=== PATIENT | male | born 1955 | race African-American/Black ===

== ENCOUNTER 2020-04-24 18:30 | Emergency (ER) | payer MEDICAID, OTHER, SELFPAY ==
[2020-04-24] MEDS ORDERED: ONDANSETRON 4 MG/2 ML VIAL ONE (20:37)
[2020-04-24] MEDS ORDERED: FAMOTIDINE 20 MG/2 ML VIAL IV ONE (20:37)
[2020-04-24] MEDS ORDERED: MORPHINE 4 MG/ML SYR ONE (20:37)
[2020-04-24 20:56] LABS: Basophils % 1.2 % (0-1.3); Hematocrit 40.8 % (39.6-49.0); Lymphocytes % 37.7 % (15.3-44.8); MPV 7.4 fL (7.6-11.3); RBC Red Blood Cell Count 4.63 M/uL (4.33-5.43)
[2020-04-24 21:11] LABS: Albumin 3.8 g/dL (3.4-5.0); Bilirubin Direct 0.1 mg/dL (0-0.2); Bilirubin Total 0.3 mg/dL (0.2-1.0); Potassium 3.9 mmol/L (3.5-5.1); Protein, Total 8.3 g/dL (6.4-8.2)
--- NOTE | 2020-04-24 23:13 | EDPHYS ---
Physician Documentation [facility] Name: Jabier King Age: 64 yrs Sex: Male : 1955 Arrival Date: 04/24/2020 Time: 18:32 Bed 28 Private MD: ED Physician Len Najera HPI: 04/24 20:02 This 64 yrs old Black Male presents to ER via Ambulatory with complaints of Abdominal mh7 Pain. 20:02 The patient presents with abdominal pain in the upper abdomen. Onset: The mh7 symptoms/episode began/occurred yesterday. The symptoms do not radiate. 20:03 Associated signs and symptoms: Pertinent negatives: nausea, vomiting, and diarrhea, mh7 anorexia, blood in stools, chest pain, constipation, diarrhea, dysuria, fever, headache, hematuria, palpitations, shortness of breath, testicular pain, vomiting blood. The symptoms are described as constant, sharp. Modifying factors: The symptoms are alleviated by nothing, the symptoms are aggravated by nothing. Severity of pain: At its worst the pain was moderate last night, in the emergency department the pain is unchanged. Historical: - Allergies: 18:48 No Known Allergies; ca1 - PMHx: 18:48 CVA; Diabetes - NIDDM; Hypertension; ca1 - PSHx: 18:48 Hernia repair; cyst removal; ca1 - Immunization history:: Adult Immunizations up to date. - Social history:: Smoking status: Patient reports the use of cigarette tobacco products, smokes one-half pack cigarettes per day. ROS: 20:03 Constitutional: Negative for fever, chills, and weight loss, Eyes: Negative for injury, mh7 pain, redness, and discharge, ENT: Negative for injury, pain, and discharge, Neck: Negative for injury, pain, and swelling, Cardiovascular: Negative for chest pain, palpitations, and edema, Respiratory: Negative for shortness of breath, cough, wheezing, and pleuritic chest pain, Back: Negative for injury and pain, : Negative for injury, bleeding, discharge, and swelling, MS/Extremity: Negative for injury and deformity, Skin: Negative for injury, rash, and discoloration, Neuro: Negative for headache, weakness, numbness, tingling, and seizure, Psych: Negative for depression, anxiety, suicide ideation, homicidal ideation, and hallucinations, Allergy/Immunology: Negative for hives, rash, and allergies, Endocrine: Negative for neck swelling, polydipsia, polyuria, polyphagia, and marked weight changes, Hematologic/Lymphatic: Negative for swollen nodes, abnormal bleeding, and unusual bruising. Exam: 20:18 Head/Face: Normocephalic, atraumatic. Eyes: Pupils equal round and reactive to light, mh7 extra-ocular motions intact. Lids and lashes normal. Conjunctiva and sclera are non-icteric and not injected. Cornea within normal limits. Periorbital areas with no swelling, redness, or edema. ENT: Nares patent. No nasal discharge, no septal abnormalities noted. Tympanic membranes are normal and external auditory canals are clear. Oropharynx with no redness, swelling, or masses, exudates, or evidence of obstruction, uvula midline. Mucous membranes moist. Neck: Trachea midline, no thyromegaly or masses palpated, and no cervical lymphadenopathy. Supple, full range of motion without nuchal rigidity, or vertebral point tenderness. No Meningismus. Chest/axilla: Normal chest wall appearance and motion. Nontender with no deformity. No lesions are appreciated. Cardiovascular: Regular rate and rhythm with a normal S1 and S2. No gallops, murmurs, or rubs. Normal PMI, no JVD. No pulse deficits. Respiratory: Lungs have equal breath sounds bilaterally, clear to auscultation and percussion. No rales, rhonchi or wheezes noted. No increased work of breathing, no retractions or nasal flaring. 20:18 Back: No spinal tenderness. No costovertebral tenderness. Full range of motion. Skin: Warm, dry with normal turgor. Normal color with no rashes, no lesions, and no evidence of cellulitis. MS/ Extremity: Pulses equal, no cyanosis. Neurovascular intact. Full, normal range of motion. Neuro: Awake and alert, GCS 15, oriented to person, place, time, and situation. Cranial nerves II-XII grossly intact. Motor strength 5/5 in all extremities. Sensory grossly intact. Cerebellar exam normal. Normal gait. Psych: Awake, alert, with orientation to person, place and time. Behavior, mood, and affect are within normal limits. 20:18 Constitutional: The patient appears in no acute distress, alert, awake, uncomfortable. 20:18 Abdomen/GI: Inspection: abdomen appears normal, Bowel sounds: normal, in all quadrants, Palpation: moderate abdominal tenderness, in the epigastric area and left upper quadrant, Rectal exam: the exam is deferred, because of patient request, Indicators: McBurney's point is not tender, Llanos's sign is negative, Rovsing's sign is negative, Obturator sign is negative, Psoas sign is negative, Liver: no appreciated palpable abnormalities, Hernia: not appreciated. Vital Signs: 18:45 BP 172 / 111; Pulse 93; Resp 16 S; Temp 97.4(TE); Pulse Ox 100% on R/A; Weight 84.82 kg ca1 (R); Height 5 ft. 5 in. (165.10 cm) (R); Pain 8/10; 19:33 BP 173 / 106; Pulse 84; Resp 20; Pulse Ox 100% on R/A; aj1 20:30 BP 159 / 101; Pulse 81; Resp 18; Pulse Ox 98% on R/A; aj1 21:57 BP 168 / 101; Pulse 67; Resp 18; Pulse Ox 100% on R/A; aj1 23:16 BP 160 / 97; Pulse 81; Resp 18; Pulse Ox 100% on R/A; aj1 18:45 Body Mass Index 31.12 (84.82 kg, 165.10 cm) ca1 MDM: 19:38 Patient medically screened. mh7 23:08 Differential diagnosis: bowel obstruction, cholecystitis, Cholelithiasis, mh7 diverticulitis, gastritis, gastroesophageal reflux disease, non-specific abd pain, pancreatitis, Peptic Ulcer Disease. Data reviewed: vital signs, nurses notes, old medical records, lab test result(s), CBC, electrolytes, urinalysis, EKG, radiologic studies, CT scan. Data interpreted: Pulse oximetry: on room air is 100 %. Interpretation: normal. Counseling: I had a detailed discussion with the patient and/or guardian regarding: the historical points, exam findings, and any diagnostic results supporting the discharge/admit diagnosis, the presence of at least one elevated blood pressure reading (>120/80) during this emergency department visit, lab results, radiology results. Response to treatment: the patient's symptoms have resolved after treatment, the patient's blood pressure is in an acceptable range, mental status has returned to baseline, the patient no longer shows bradycardia, the patient is not short of breath, the patient is not tachycardic, the patient's pain is gone, the patient's temperature has normalized, the patient is now symptom free, patient is well hydrated. Refusal of service: The patient/guardian displays adequate decision making capability and despite a detailed discussion of alternatives, benefits, risks, and consequences refuses: Admission to the hospital for further work-up and treatment. 04/24 19:40 Order name: Basic Metabolic Panel; Complete Time: 22:06 [facility] 04/24 19:40 Order name: CBC with Diff; Complete Time: 22: [facility] 04/24 19:40 Order name: Hepatic Function; Complete Time: 22: [facility] 04/24 19:40 Order name: Lipase; Complete Time: 22: [facility] 04/24 20:35 Order name: CT Abd/Pelvis - IV Contrast Only [facility] 04/24 19:40 Order name: IV Saline Lock; Complete Time: 20:48 [facility] 04/24 19:40 Order name: Labs collected and sent; Complete Time: 20:48 [facility] 04/24 19:40 Order name: Urine Dipstick-Ancillary (obtain specimen); Complete Time: 21:13 [facility] 04/24 19:40 Order name: EKG - Nurse/Tech; Complete Time: 20:31 7 Administered Medications: 20:48 Drug: Pepcid 20 mg Route: IVP; Site: left antecubital; aj1 21:45 Follow up: Response: No adverse reaction aj1 20:49 Drug: morphine 4 mg Route: IVP; Site: left antecubital; aj1 21:45 Follow up: Response: No adverse reaction; Pain is decreased aj1 20:49 Drug: Zofran (Ondansetron) 4 mg Route: IVP; Site: left antecubital; aj1 21:45 Follow up: Response: No adverse reaction aj1 Disposition: 04/24/20 23:13 Discharged to Home. Impression: Acute Pancreatitis. - Condition is Stable. - Discharge Instructions: Acute Pancreatitis, [id number]. - Prescriptions for Zofran ODT 4 mg Oral tablet,disintegrating - place 1 tablet by TRANSLINGUAL route every 8 hours As needed; 6 tablet. Tylenol- Codeine #3 300-30 mg Oral Tablet - take 2 tablets by ORAL route every 6 hours As needed; 20 tablet. - Medication Reconciliation Form, Thank You Letter, Antibiotic Education, Prescription Opioid Use form. - Follow up: Private Physician; When: Tomorrow; Reason: Worsening of condition, Recheck today's complaints, Continuance of care, Re-evaluation by your physician. Follow up: Yasemin Davila MD; When: 1 - 2 days; Reason: Worsening of condition, Recheck today's complaints. Follow up: Esteban Estrada MD; When: Tomorrow; Reason: Worsening of condition, Recheck today's complaints. - Problem is an acute exacerbation. - Symptoms have improved. Signatures: Dispatcher [employer] EDMS Romana Lara RN RN aj1 Kristal Cabello RN RN ca1 Len Najera MD MD mh7 Corrections: (The following items were deleted from the chart) 23:42 23:13 04/24/2020 23:13 Discharged to Home. Impression: Acute Pancreatitis. Condition is aj1 Stable. Forms are Medication Reconciliation Form, Thank You Letter, Antibiotic Education, Prescription Opioid Use. Follow up: Private Physician; When: Tomorrow; Reason: Worsening of condition, Recheck today's complaints, Continuance of care, Re-evaluation by your physician. Follow up: Yasemin Davila; When: 1 - 2 days; Reason: Worsening of condition, Recheck today's complaints. Follow up: Esteban Estrada; When: Tomorrow; Reason: Worsening of condition, Recheck today's complaints. Problem is an acute exacerbation. Symptoms have improved. mh7
--- NOTE | 2020-04-24 23:13 | ER ---
Nurse's Notes [facility] Name: Jabier King Age: 64 yrs Sex: Male : 1955 Arrival Date: 04/24/2020 Time: 18:32 Bed 28 Private MD: Diagnosis: Acute Pancreatitis Presentation: 04/24 18:45 Chief complaint: Patient states: Mid abdominal pain started yesterday and has gotten ca1 worse. Denies N/V/D/urinary symptoms/constipation. Coronavirus screen: Client denies travel out of the [place] in the last 14 days. At this time, the client does not indicate any symptoms associated with coronavirus-19. Ebola Screen: Patient negative for fever greater than or equal to 101.5 degrees Fahrenheit, and additional compatible Ebola Virus Disease symptoms Patient denies exposure to infectious person. Patient denies travel to an Ebola-affected area in the 21 days before illness onset. No symptoms or risks identified at this time. Initial Sepsis Screen: Does the patient meet any 2 criteria? No. Patient's initial sepsis screen is negative. Does the patient have a suspected source of infection? No. Patient's initial sepsis screen is negative. Risk Assessment: Do you want to hurt yourself or someone else? Patient reports no desire to harm self or others. Onset of symptoms was April 24, 2020. 18:45 Method Of Arrival: Ambulatory ca1 18:45 Acuity: TARA 3 ca1 Historical: - Allergies: 18:48 No Known Allergies; ca1 - PMHx: 18:48 CVA; Diabetes - NIDDM; Hypertension; ca1 - PSHx: 18:48 Hernia repair; cyst removal; ca1 - Immunization history:: Adult Immunizations up to date. - Social history:: Smoking status: Patient reports the use of cigarette tobacco products, smokes one-half pack cigarettes per day. Screenin:30 Abuse screen: Denies threats or abuse. Denies injuries from another. Nutritional aj1 screening: No deficits noted. Tuberculosis screening: No symptoms or risk factors identified. 23:41 Fall Risk None identified. aj1 Assessment: 19:30 General: Appears in no apparent distress. uncomfortable, Behavior is calm, cooperative, aj1 appropriate for age. Pain: Complains of pain in epigastric area, right upper quadrant and left upper quadrant Pain does not radiate. Pain currently is 8 out of 10 on a pain scale. Quality of pain is described as aching, Pain began 2-3 days ago. Is continuous, Alleviated by nothing. Aggravated by nothing. Neuro: Level of Consciousness is awake, alert, obeys commands, Oriented to person, place, time, situation. Cardiovascular: Patient's skin is warm and dry. Respiratory: Airway is patent Respiratory effort is even, unlabored, Respiratory pattern is regular, symmetrical. GI: Abdomen is round non-distended, Bowel sounds present X 4 quads. Abd is soft X 4 quads Abdomen is tender to palpation in epigastric area, right upper quadrant and left upper quadrant Patient currently denies diarrhea, nausea, vomiting. : No signs and/or symptoms were reported regarding the genitourinary system. EENT: No signs and/or symptoms were reported regarding the EENT system. Derm: No signs and/or symptoms reported regarding the dermatologic system. Skin is pink, warm \T\ dry. normal. Musculoskeletal: No signs and/or symptoms reported regarding the musculoskeletal system. Circulation, motion, and sensation intact. 20:30 Reassessment: Patient appears in no apparent distress at this time. No changes from [facility] previously documented assessment. Patient and/or family updated on plan of care and expected duration. Pain level reassessed. Patient is alert, oriented x 3, equal unlabored respirations, skin warm/dry/pink. 21:15 Reassessment: Patient transported to CT via wheelchair. aj1 21:27 Reassessment: Patient returned to ER bed 28. aj1 21:57 Reassessment: Patient appears in no apparent distress at this time. Patient and/or [facility] family updated on plan of care and expected duration. Pain level reassessed. Patient is alert, oriented x 3, equal unlabored respirations, skin warm/dry/pink. Patient states symptoms have improved. 22:05 Reassessment: Attempted to call report to 4th floor, receiving nurse is unavailable at [facility] this time and will call back. 23:15 Reassessment: Patient and/or family updated on plan of care and expected duration. Pain [facility] level reassessed. General: Appears in no apparent distress. comfortable, Behavior is calm, cooperative, appropriate for age. Neuro: Level of Consciousness is awake, alert, obeys commands, Oriented to person, place, time, situation. Cardiovascular: Patient's skin is warm and dry. Respiratory: Airway is patent Respiratory effort is even, unlabored, Respiratory pattern is regular, symmetrical. Derm: No signs and/or symptoms reported regarding the dermatologic system. Skin is pink, warm \T\ dry. normal. Musculoskeletal: No signs and/or symptoms reported regarding the musculoskeletal system. Circulation, motion, and sensation intact. Vital Signs: 18:45 BP 172 / 111; Pulse 93; Resp 16 S; Temp 97.4(TE); Pulse Ox 100% on R/A; Weight 84.82 kg ca1 (R); Height 5 ft. 5 in. (165.10 cm) (R); Pain 8/10; 19:33 BP 173 / 106; Pulse 84; Resp 20; Pulse Ox 100% on R/A; aj1 20:30 BP 159 / 101; Pulse 81; Resp 18; Pulse Ox 98% on R/A; aj1 21:57 BP 168 / 101; Pulse 67; Resp 18; Pulse Ox 100% on R/A; aj1 23:16 BP 160 / 97; Pulse 81; Resp 18; Pulse Ox 100% on R/A; aj1 18:45 Body Mass Index 31.12 (84.82 kg, 165.10 cm) ca1 ED Course: 18:32 Patient arrived in ED. as 18:47 Triage completed. ca1 18:48 Arm band placed on right wrist. ca1 19:00 Report received from CIARA Ames. aj1 19:01 Len Najera MD is Attending Physician. 7 19:22 Romana Lara RN is Primary Nurse. aj1 19:30 Patient has correct armband on for positive identification. Bed in low position. Call aj1 light in reach. Pulse ox on. NIBP on. Door closed. Noise minimized. Warm blanket given. 19:30 No provider procedures requiring assistance completed. aj1 20:41 Inserted saline lock: 20 gauge in left antecubital area, using aseptic technique. Blood aj1 collected. 21:32 CT Abd/Pelvis - IV Contrast Only In Process Unspecified. EDMS 23:11 Yasemin Davila MD is Referral Physician. 7 23:12 Esteban Estrada MD is Referral Physician. 7 23:40 IV discontinued, intact, bleeding controlled, No redness/swelling at site. Pressure aj1 dressing applied. Administered Medications: 20:48 Drug: Pepcid 20 mg Route: IVP; Site: left antecubital; aj1 21:45 Follow up: Response: No adverse reaction aj1 20:49 Drug: morphine 4 mg Route: IVP; Site: left antecubital; aj1 21:45 Follow up: Response: No adverse reaction; Pain is decreased aj1 20:49 Drug: Zofran (Ondansetron) 4 mg Route: IVP; Site: left antecubital; aj1 21:45 Follow up: Response: No adverse reaction aj1 Outcome: 23:13 Discharge ordered by . Velia 23:41 Discharged to home ambulatory. aj1 23:41 Condition: good 23:41 Discharge instructions given to patient, Instructed on discharge instructions, follow up and referral plans. no drinking with medication, no driving heavy equipment, medication usage, Demonstrated understanding of instructions, follow-up care, medications, Prescriptions given X 2. 23:42 Patient left the ED. aj1 Signatures: Dispatcher [employer] EDRomana Blake RN RN aj1 Martinez, Amelia as Acob, Cheryl, RN RN ca1 Len Najera MD MD [facility]
[2020-04-25 01:46] VITALS: TEMP 97.4
[2020-04-25 01:50] VITALS: O2SAT 100
[2020-04-25 01:51] VITALS: BP 160/97
--- NOTE | 2020-04-25 10:43 | RAD REPORT ---
EXAM DESCRIPTION: CT ABDOMEN PELVIS WITH IV CONTRAST CLINICAL HISTORY: Mid abdominal pain for one day. COMPARISON: None. TECHNIQUE: CT scan of the abdomen and pelvis was performed with IV contrast. This exam was performed according to our departmental dose-optimization program, which includes automated exposure control, adjustment of the mA and/or kV according to patient size and/or use of iterative reconstruction techn ique. FINDINGS: Mild scarring at the right lung base. No pleural or pericardial effusions are seen. There is no hiatal hernia. There is suggestion of possible mild inflammatory stranding surrounding the pancreas. The liver, sple en, gallbladder, adrenal glands, and kidneys are unremarkable. No hydronephrosis or urinary stones ar e seen. The pelvic organs are also unremarkable. The stomach and duodenum are unremarkable. No small bowel obstruction. The appendix is normal. No mariama dence of acute diverticulitis. No adenopathy, free fluid, or free air is identified. The aorta is normal caliber and contains atherosclerotic calcifications. Focal degenerative disc dise ase at L4-L5 with endplate erosive changes. Small fat-containing umbilical hernia but without inflamm atory changes. IMPRESSION: Query mild inflammatory stranding surrounding the pancreas. Please correlate with lipase levels for pancreatitis. Electronically signed by: Dayron Bird MD 04/24/2020 9:56 PM CDT Due to temporary technical issues with the PACS/Fluency reporting system, reports are being signed by the in house radiologist without review as a courtesy to ensure prompt reporting. The interpreting r adiologist is fully responsible for the content of the report.
--- NOTE | 2020-04-25 11:21 | EKG ---
Test Date: 2020-04-24 Test Time: 20:20:25 Vp Foundation: REGI MEASUREMENT RESULTS: Intervals: Rate: 82 ME: 164 QRSD: 66 QT: 376 QTc: 439 [place]: P: 55 ME: 164 QRS: 45 T: 65 INTERPRETIVE STATEMENTS: Normal sinus rhythm Septal infarct, age undetermined Abnormal ECG Compared to ECG 03/10/2015 19:53:17 Myocardial infarct finding now present Electronically Signed On 04-25-20 11:20:14 CDT by Ac Solis
== END 2020-04-24 23:42 | disposition home or self-care (01) ==
LOC: ER 18:30
DX: K85.90 Acute pancreatitis without necrosis or infection, unspecified (principal); I10 Essential (primary) hypertension; F17.210 Nicotine dependence, cigarettes, uncomplicated; Z86.73 Personal history of transient ischemic attack (TIA), and cerebral infarction without residual deficits
CPT/HCPCS: 36415; 74177; 80048; 80076; 83690; 85025; 93005; 96374; 96375; 99284; J2405; Q9967

== ENCOUNTER 2020-05-06 20:28 | Emergency (ER) | payer SELFPAY ==
[2020-05-06 21:28] LABS: Absolute Lymphocytes (CBC) 4.1 K/uL (0.7-4.9); Basophils % 0.8 % (0-1.3); Hematocrit 42.2 % (39.6-49.0); Lymphocytes % 34.4 % (15.3-44.8); RBC Red Blood Cell Count 4.75 M/uL (4.33-5.43)
[2020-05-06] MEDS ORDERED: NA CHLORIDE 0.9% 1,000 ML ONE (21:39)
[2020-05-06] MEDS ORDERED: ONDANSETRON 4 MG/2 ML VIAL ONE (21:39)
[2020-05-06] MEDS ORDERED: MORPHINE 4 MG/ML SYR ONE (21:39)
[2020-05-06 21:40] LABS: ALT/SGPT 22 U/L (12-78); AST/SGOT 13 U/L (15-37); Albumin 3.9 g/dL (3.4-5.0); Alkaline Phosphatase 105 U/L (45-117); BUN Blood Urea Nitrogen 19 mg/dL (7-18); Bicarbonate 28 mmol/L (21-32); Bilirubin Direct < 0.1 mg/dL (0-0.2); Bilirubin Total 0.3 mg/dL (0.2-1.0); Glucose Level 110 mg/dL (74-106); Lipase 511 U/L (73-393); Potassium 4.9 mmol/L (3.5-5.1); Protein, Total 8.9 g/dL (6.4-8.2); Sodium Level 140 mmol/L (136-145)
[2020-05-06] MEDS ORDERED: CEFTRIAXONE/SWI 1gm 1 GM/10 ML SYR ONE (23:30)
--- NOTE | 2020-05-06 23:41 | ER ---
Nurse's Notes [facility] Name: Jabier King Age: 64 yrs Sex: Male : 1955 Arrival Date: 05/06/2020 Time: 20:30 Bed 7 Private MD: Diagnosis: Acute pancreatitis Presentation: 05/06 20:51 Chief complaint: Patient states: Upper abdfominal pain for 3 days. 1 episode of N/V. No ll1 fever. Coronavirus screen: Client denies travel out of the [place] in the last 14 days. fatigue, shortness of breath, loss of taste or smell, Client presents with at least one sign or symptom that may indicate coronavirus-19. Standard/surgical mask placed on the client. Ebola Screen: Patient denies travel to an Ebola-affected area in the 21 days before illness onset. Initial Sepsis Screen: Does the patient meet any 2 criteria? No. Patient's initial sepsis screen is negative. Risk Assessment: Do you want to hurt yourself or someone else? Patient reports no desire to harm self or others. Onset of symptoms was May 03, 2020. 20:51 Method Of Arrival: Ambulatory ll1 20:51 Acuity: TARA 2 ll1 21:45 Initial Sepsis Screen: Does the patient have a suspected source of infection? No. rv Patient's initial sepsis screen is negative. Historical: - Allergies: 20:53 Bactrim; ll1 - PMHx: 20:53 CVA; Diabetes - NIDDM; Hypertension; ll1 - PSHx: 20:53 Hernia repair; ll1 20:53 cyst removal; ll1 - Immunization history:: Flu vaccine is not up to date. - Social history:: Smoking status: Patient reports the use of cigarette tobacco products, smokes one-half pack cigarettes per day. Screenin:45 Abuse screen: Denies threats or abuse. Denies injuries from another. Nutritional rv screening: No deficits noted. Tuberculosis screening: No symptoms or risk factors identified. Fall Risk None identified. Assessment: 21:44 General: Appears comfortable, Behavior is calm, cooperative. Pain: Complains of pain in rv right upper quadrant and left upper quadrant. Neuro: Level of Consciousness is awake, alert, obeys commands, Oriented to person, place, time, situation. Cardiovascular: Patient's skin is warm and dry. Respiratory: Airway is patent. GI: Bowel sounds present X 4 quads. Abd is soft and non tender X 4 quads. Derm: Skin is intact. 05/07 00:05 Reassessment: Patient is alert, oriented x 3, equal unlabored respirations, skin bb warm/dry/pink. pt discussed disposition with Stef GEORGES decided pt would be discharged pt states he is feeling better and verbalized understanding of agreeing to plan of care discharge instructions given pt ambulated with steady gait to exit. Vital Signs: 05/06 20:51 BP 204 / 109; Pulse 80; Resp 18; Temp 97.6; Pulse Ox 100% ; Pain 9/10; ll1 21:11 BP 200 / 105; Pulse 75; rv 22:00 BP 162 / 119; Pulse 75; Resp 16; Pulse Ox 99% ; rv 23:00 BP 190 / 106; Pulse 77; Resp 15; Pulse Ox 96% on R/A; rv 23:30 BP 199 / 103; Pulse 88; Resp 17; Pulse Ox 97% on R/A; rv 05/07 00:06 BP 179 / 103; Pulse 91; Resp 17 S; Temp 98.2(O); Pulse Ox 94% on R/A; Pain 0/10; bb ED Course: 05/06 20:30 Patient arrived in ED. bp1 20:52 Triage completed. ll1 20:53 Arm band placed on. ll1 21:01 Stef Allred PA is PHCP. cp 21:01 Stef Bagley MD is Attending Physician. cp 21:10 Inserted saline lock: 20 gauge in left antecubital area, using aseptic technique. Blood rv collected. 21:25 Charly Ireland, CIARA is Primary Nurse. rv 21:45 Patient has correct armband on for positive identification. radiation monitor on. Pulse rv ox on. NIBP on. 22:03 CT Abd/Pelvis - IV Contrast Only In Process Unspecified. EDMS 23:40 Farhad Cortes MD is Referral Physician. cp 05/07 00:07 No provider procedures requiring assistance completed. IV discontinued, intact, bb bleeding controlled, No redness/swelling at site. Pressure dressing applied. Administered Medications: 05/06 21:37 Drug: NS 0.9% 1000 ml Route: IV; Rate: 1000 ml/hr; Site: left antecubital; rv 21:38 Drug: morphine 4 mg Route: IVP; Site: left antecubital; rv 22:32 Follow up: Response: No adverse reaction; Marked relief of symptoms; Pain is decreased; rv RASS: Alert and Calm (0) 21:38 Drug: Zofran (Ondansetron) 4 mg Route: IVP; Site: left antecubital; rv 22:30 Follow up: Response: No adverse reaction rv 23:20 Drug: Rocephin 1 grams Route: IV; Rate: calculated rate; Site: left antecubital; rv 23:49 CANCELLED (Physician Discretion): NS 0.9% 1000 ml IV at 125 ml/hr Per protocol; 1000 mL bb bolus 05/07 00:00 Drug: ProTONIX 40 mg Route: IVP; Site: left antecubital; bb 00:05 Follow up: Response: No adverse reaction bb Outcome: 05/06 23:41 Discharge ordered by MD. roche 05/07 00:07 Discharged to home ambulatory. bb Condition: stable Discharge instructions given to patient, Instructed on discharge instructions, follow up and referral plans. medication usage, Demonstrated understanding of instructions, follow-up care, medications, Prescriptions given X 3. 00:07 Patient left the ED. bb Signatures: Dispatcher [employer] EDMS Misti Apple RN RN bb Stef Allred PA PA cp Vicente, Ronaldo, RN RN rv Jocy Levy RN RN ll1 Emily Nieto
--- NOTE | 2020-05-06 23:41 | EDPHYS ---
Physician Documentation [facility] Name: Jabier King Age: 64 yrs Sex: Male : 1955 Arrival Date: 05/06/2020 Time: 20:30 Bed 7 Private MD: ED Physician Stef Bagley HPI: 05/06 21:20 This 64 yrs old Black Male presents to ER via Ambulatory with complaints of cp PANCREATITIS, Abdominal Pain. 21:20 The patient presents with abdominal pain in the upper abdomen. cp 21:20 Onset: The symptoms/episode began/occurred 3 day(s) ago. cp 21:20 The symptoms do not radiate. Associated signs and symptoms: Pertinent positives: cp nausea, 1 episode of vomiting, Pertinent negatives: blood in stools, chest pain, constipation, diarrhea, fever. 21:20 The patient has experienced similar episodes in the past, today's symptoms are similar, cp to when the patient was apparently diagnosed with pancreatitis. 21:20 Associated signs and symptoms: Pertinent negatives: active vomiting. cp Historical: - Allergies: 20:53 Bactrim; ll1 - PMHx: 20:53 CVA; Diabetes - NIDDM; Hypertension; ll1 - PSHx: 20:53 Hernia repair; ll1 20:53 cyst removal; ll1 - Immunization history:: Flu vaccine is not up to date. - Social history:: Smoking status: Patient reports the use of cigarette tobacco products, smokes one-half pack cigarettes per day. ROS: 21:25 Constitutional: Negative for body aches, chills, fever, poor PO intake. cp 21:25 Eyes: Negative for injury, pain, redness, and discharge. cp 21:25 ENT: Negative for ear pain, sore throat, difficulty swallowing, difficulty handling secretions. 21:25 Cardiovascular: Negative for chest pain, palpitations. 21:25 Respiratory: Negative for cough, shortness of breath, wheezing. 21:25 Abdomen/GI: Positive for abdominal pain, Negative for vomiting, diarrhea, constipation, black/tarry stool, rectal bleeding. 21:25 Neuro: Negative for altered mental status, weakness. 21:25 All other systems are negative. Exam: 21:32 Head/Face: Normocephalic, atraumatic. cp 21:32 Constitutional: The patient appears in no acute distress, alert, awake, non-diaphoretic, non-toxic, well developed, well nourished. 21:32 Eyes: Periorbital structures: appear normal, Conjunctiva: normal, no exudate, no injection, Sclera: no appreciated abnormality, Lids and lashes: appear normal, bilaterally. 21:32 ENT: External ear(s): are unremarkable, Nose: is normal, Posterior pharynx: Airway: no evidence of obstruction, patent. 21:32 Chest/axilla: Inspection: normal, Palpation: is normal, no crepitus, no tenderness. 21:32 Cardiovascular: Rate: normal, Rhythm: regular, Edema: is not appreciated, JVD: is not appreciated. 21:32 Respiratory: the patient does not display signs of respiratory distress, Respirations: normal, no use of accessory muscles, no retractions, labored breathing, is not present, Breath sounds: are clear throughout, no decreased breath sounds. 21:32 Abdomen/GI: Inspection: abdomen appears normal, Bowel sounds: active, all quadrants, Palpation: soft, in all quadrants, severe abdominal tenderness, in the right upper quadrant and left upper quadrant, rebound tenderness, is not appreciated, voluntary guarding, is elicited in the right upper quadrant and left upper quadrant. 21:32 Neuro: Orientation: to person, place \T\ time. Mentation: is normal. Vital Signs: 20:51 BP 204 / 109; Pulse 80; Resp 18; Temp 97.6; Pulse Ox 100% ; Pain 9/10; ll1 21:11 BP 200 / 105; Pulse 75; rv 22:00 BP 162 / 119; Pulse 75; Resp 16; Pulse Ox 99% ; rv 23:00 BP 190 / 106; Pulse 77; Resp 15; Pulse Ox 96% on R/A; rv 23:30 BP 199 / 103; Pulse 88; Resp 17; Pulse Ox 97% on R/A; rv 05/07 00:06 BP 179 / 103; Pulse 91; Resp 17 S; Temp 98.2(O); Pulse Ox 94% on R/A; Pain 0/10; bb MDM: 05/06 21:03 Patient medically screened. cp 23:39 Data reviewed: vital signs, nurses notes, lab test result(s), radiologic studies, CT cp scan. ED course: Patient reports pain markedly improved and would like to be discharged to home. 05/06 21:10 Order name: Basic Metabolic Panel; Complete Time: 22:38 05/06 22:38 Interpretation: Normal except: GLUC 110; BUN 19; GFR 82. 05/06 21:10 Order name: CBC with Diff; Complete Time: 22:38 05/06 22:38 Interpretation: Normal except: WBC 12.0; PLT 252; RDW 15.3; MPV 7.0. 05/06 21:10 Order name: Hepatic Function; Complete Time: 22:38 05/06 23:34 Interpretation: Normal except: AST 13; TP 8.9; GLOB 5.0; A/G 0.8. 05/06 21:10 Order name: Lipase; Complete Time: 22:38 05/06 22:38 Interpretation: Abnormal: LIP 511. 05/06 21:20 Order name: Urine Microscopic Only 05/06 21:30 Order name: Lactate; Complete Time: 23:33 05/06 21:30 Order name: CT Abd/Pelvis - IV Contrast Only 05/06 23:09 Order name: Urine Dipstick--Ancillary (enter results) [facility] 05/06 23:55 Order name: Urine Culture ED[facility] 05/06 21:10 Order name: IV Saline Lock; Complete Time: 21:10 05/06 21:10 Order name: Labs collected and sent; Complete Time: 21:10 05/06 21:20 Order name: Bladder Scanner: pre and post void ; Complete Time: 21:37 cp Administered Medications: 21:37 Drug: NS 0.9% 1000 ml Route: IV; Rate: 1000 ml/hr; Site: left antecubital; rv 21:38 Drug: morphine 4 mg Route: IVP; Site: left antecubital; rv 22:32 Follow up: Response: No adverse reaction; Marked relief of symptoms; Pain is decreased; rv RASS: Alert and Calm (0) 21:38 Drug: Zofran (Ondansetron) 4 mg Route: IVP; Site: left antecubital; rv 22:30 Follow up: Response: No adverse reaction rv 23:20 Drug: Rocephin 1 grams Route: IV; Rate: calculated rate; Site: left antecubital; rv 23:49 CANCELLED (Physician Discretion): NS 0.9% 1000 ml IV at 125 ml/hr Per protocol; 1000 mL bb bolus 05/07 00:00 Drug: ProTONIX 40 mg Route: IVP; Site: left antecubital; bb 00:05 Follow up: Response: No adverse reaction bb Disposition: 11:05 Co-signature as Attending Physician, Stef Bagley MD I agree with the assessment and brianna plan of care. Disposition: 05/06/20 23:41 Discharged to Home. Impression: Acute pancreatitis. - Condition is Stable. - Discharge Instructions: Acute Pancreatitis, Urinary Tract Infection, Adult. - Prescriptions for Zofran 4 mg Oral Tablet - take 1 tablet by ORAL route every 12 hours As needed; 20 tablet. Cipro 500 mg Oral Tablet - take 1 tablet by ORAL route every 12 hours for 7 days; 14 tablet. Tramadol 50 mg Oral Tablet - take 1 tablet by ORAL route every 8 hours as needed; 12 tablet. - Medication Reconciliation Form, Thank You Letter, Antibiotic Education, Prescription Opioid Use form. - Follow up: Farhad Cortes MD; When: 1 - 2 days; Reason: Recheck today's complaints. - Problem is an acute exacerbation. - Symptoms have improved. Signatures: Dispatcher [employer] EDNH Stef Bagley MD MD cha Ballard, Brenda RN RN Stfe Aguilar PA PA cp Charly Ireland RN RN Jocy Austin RN RN ll1 Corrections: (The following items were deleted from the chart) 05/06 23:49 23:35 NS 0.9% 1000 ml IV at 125 ml/hr Per protocol; 1000 mL bolus ordered. cp bb 05/07 00:07 05/06 23:41 05/06/2020 23:41 Discharged to Home. Impression: Acute pancreatitis. bb Condition is Stable. Forms are Medication Reconciliation Form, Thank You Letter, Antibiotic Education, Prescription Opioid Use. Follow up: Farhad Cortes; When: 1 - 2 days; Reason: Recheck today's complaints. Problem is an acute exacerbation. Symptoms have improved. cp
[2020-05-06 23:46] LABS: Urine Blood 1+ (NEG); Urine Glucose TRACE (NEG); Urine Protein 2+ (NEG)
[2020-05-06 23:54] LABS: Urine Bacteria >50 /HPF (NONE SEEN); Urine Culture Reflex Order REFLEXED; Urine RBC <5 /HPF (NONE SEEN)
[2020-05-07] MEDS ORDERED: PANTOPRAZOLE 40 MG INJ ONE ×2 (00:08)
[2020-05-07 00:22] VITALS: BP 179/103; TEMP 98.2; O2SAT 94
--- NOTE | 2020-05-07 10:04 | RAD REPORT ---
EXAM DESCRIPTION: CT - Abdomen Pelvis W Contrast - 05/07/2020 7:02 am CLINICAL HISTORY: ABD PAIN TECHNIQUE: Contiguous axial images obtained through the abdomen and pelvis following the uneventful administration of IV contrast. Coronal and sagittal reformatted images were provided. This exam was performed according to our departmental dose-optimization program, which includes autom ated exposure control, adjustment of the mA and/or kV according to patient size and/or use of iterati ve reconstruction technique. COMPARISON: 04/24/2020 FINDINGS: Lung bases: Clear Liver: Diffuse surface contour nodularity suggestive of cirrhosis. Gallbladder and biliary system: Unremarkable Pancreas: Subtle infiltrative changes surrounding the pancreas, decreased from the prior. Spleen: Unremarkable Adrenals: Unremarkable Kidneys: Normal renal cortical enhancement. No calculi. No hydronephrosis. Bowel: Moderate stool within the proximal to mid large bowel. No obstruction. No appreciable mucosal thickening. Appendix: Normal caliber appendix. No findings to suggest acute appendicitis. Urinary bladder: Unremarkable Reproductive: The prostate is mildly enlarged. Lymph nodes: No pathologically enlarged lymph nodes. Peritoneum: No focal fluid collection. No free air. Vessels: Moderate atherosclerotic disease. No abdominal aortic aneurysm. The main portal, splenic and superior mesenteric veins are patent. Abdominal wall: Small fat-containing left periumbilical and left inguinal hernias. Bones: Unremarkable IMPRESSION: 1. Subtle residual infiltrative changes surrounding the pancreas which may be related to acute pancreatitis. 2. Other findings as above. Electronically signed by: Kenton Cevallos MD 05/06/2020 10:21 PM CDT Due to temporary technical issues with the PACS/Fluency reporting system, reports are being signed by the in house radiologist without review as a courtesy to ensure prompt reporting. The interpreting r adiologist is fully responsible for the content of the report.
== END 2020-05-07 00:07 | disposition home or self-care (01) ==
LOC: ER 20:28
DX: K85.90 Acute pancreatitis without necrosis or infection, unspecified (principal); I10 Essential (primary) hypertension; F17.210 Nicotine dependence, cigarettes, uncomplicated; Z88.1 Allergy status to other antibiotic agents; Z86.73 Personal history of transient ischemic attack (TIA), and cerebral infarction without residual deficits
CPT/HCPCS: 36415; 74177; 80048; 80076; 81003; 81015; 83605; 83690; 85025; 87086; 87088; J0696; J2405; J7030; Q9967

== ENCOUNTER 2020-06-03 10:11 | Emergency (ER) | payer OTHER ==
[2020-06-03 10:59] LABS: Urine Blood NEGATIVE (NEG); Urine Glucose 2+ (NEG); Urine Protein 1+ (NEG)
[2020-06-03] MEDS ORDERED: carvediloL 6.25 MG TAB ONE (11:16)
[2020-06-03] MEDS ORDERED: hydroCHLOROthiazide 25 MG TAB ONE (11:16)
[2020-06-03] MEDS ORDERED: lisinopriL 20 MG TAB ONE (11:16)
[2020-06-03] MEDS ORDERED: AMLODIPINE 10 MG TAB ONE (11:16)
[2020-06-03] MEDS ORDERED: ONDANSETRON 4 MG/2 ML VIAL ONE (11:47)
[2020-06-03] MEDS ORDERED: MORPHINE 4 MG/ML SYR ONE (11:47)
[2020-06-03 12:00] LABS: Absolute Lymphocytes (CBC) 2.3 K/uL (0.7-4.9); Basophils % 0.7 % (0-1.3); Hematocrit 43.1 % (39.6-49.0); Lymphocytes % 31.2 % (15.3-44.8); MPV 8.2 fL (7.6-11.3); RBC Red Blood Cell Count 4.76 M/uL (4.33-5.43)
--- NOTE | 2020-06-03 12:13 | RAD REPORT ---
EXAM DESCRIPTION: RAD - Chest Single View - 06/03/2020 11:53 am CLINICAL HISTORY: ABDOMINAL PAIN Chest pain. COMPARISON: CHEST PA AND LAT 2 VIEW dated 03/04/2015; CHEST SINGLE VIEW dated 02/17/2015; CHEST SINGLE VIEW dated 03/06/2014; CHEST PA AND LAT 2 VIEW dated 08/31/2013 FINDINGS: Portable technique limits examination quality. The lungs are grossly clear. The heart is normal in size. No displaced fractures. IMPRESSION: No acute intrathoracic process suspected.
[2020-06-03 12:15] LABS: ALT/SGPT 33 U/L (12-78); AST/SGOT 21 U/L (15-37); Albumin 3.8 g/dL (3.4-5.0); Alkaline Phosphatase 109 U/L (45-117); BUN Blood Urea Nitrogen 16 mg/dL (7-18); Bicarbonate 31 mmol/L (21-32); Bilirubin Direct 0.2 mg/dL (0-0.2); Bilirubin Total 0.3 mg/dL (0.2-1.0); Glucose Level 172 mg/dL (74-106); Lipase 183 U/L (73-393); Potassium 4.2 mmol/L (3.5-5.1); Protein, Total 8.3 g/dL (6.4-8.2); Sodium Level 138 mmol/L (136-145); Troponin (Emerg Dept Use Only) < 0.02 ng/mL (0.0-0.045)
--- NOTE | 2020-06-03 12:25 | RAD REPORT ---
EXAM DESCRIPTION: CTAbdomen Pelvis W Contrast - 06/03/2020 12:11 pm CLINICAL HISTORY: Abdominal pain. ABD PAIN COMPARISON: Abdomen Pelvis W Contrast dated 05/06/2020; Abdomen Pelvis W Contrast dated 04/24/2020 ; CT ABD PELVIS W CONTRAST dated 02/11/2015 TECHNIQUE: Biphasic CT imaging of the abdomen and pelvis was performed with 100 ml non-ionic IV cont rast. All CT scans are performed using dose optimization technique as appropriate and may include automated exposure control or mA/KV adjustment according to patient size. FINDINGS: The lung bases are clear. Mild nodular appearance to the liver parenchyma is seen likely indicating mild cirrhosis. No intrahep atic biliary dilatation or focal mass. The spleen, pancreas, adrenal glands and kidneys are within no rmal limits. No bowel obstruction, free air, free fluid or abscess. There is a large amount of stool in the colon. The appendix is normal. Small fat containing periumbilical hernia. No evidence of significant lympha denopathy. Small fat containing left inguinal hernia. Moderate aortic atherosclerosis. Significant degenerative spondylosis lumbar spine. IMPRESSION: Mild liver cirrhosis. Significant fecal retention throughout the colon. Small fat containing periumbilical and left inguinal hernias. Moderate degenerate change lumbosacral spine.
--- NOTE | 2020-06-03 13:32 | ER ---
Nurse's Notes [facility] Name: Jabier King Age: 64 yrs Sex: Male : 1955 Arrival Date: 06/03/2020 Time: 10:14 Bed 17 Private MD: Diagnosis: Abdominal and pelvic pain;Headache Presentation: 06/03 10:21 Chief complaint: Patient states: Out of all medications, took last doses yesterday. Has ll1 abdominal pain and HARDY for 3 days. Denies N/V/D. Coronavirus screen: Client denies travel out of the [place] in the last 14 days. headache, At this time, the client does not indicate any symptoms associated with coronavirus-19. Ebola Screen: Patient denies travel to an Ebola-affected area in the 21 days before illness onset. Initial Sepsis Screen: Does the patient meet any 2 criteria? No. Patient's initial sepsis screen is negative. Does the patient have a suspected source of infection? No. Patient's initial sepsis screen is negative. Risk Assessment: Do you want to hurt yourself or someone else? Patient reports no desire to harm self or others. Onset of symptoms was June 01, 2020. 10:21 Method Of Arrival: Ambulatory ll1 10:21 Acuity: TARA 2 ll1 Historical: - Allergies: 10:21 Bactrim; ll1 - Home Meds: 10:56 atorvastatin 40 mg oral tab 1 tab once daily [Active]; glipizide 10 mg Oral tab 1 tab jl7 once daily [Active]; triamterene-hydrochlorothiazid 37.5-25 mg Oral cap 1 cap once daily [Active]; amlodipine 10 mg tab 1 tab once daily [Active]; lisinopril 40 mg Oral tab 1 tab once daily [Active]; fluoxetine 20 mg Oral cap 1 cap once daily [Active]; minoxidil 2.5 mg Oral tab 3 tabs 2 times per day [Active]; aspirin 325 mg Oral tab 1 tab once daily [Active]; terazosin 5 mg oral cap 1 cap once daily [Active]; metformin 1,000 mg Oral tab 1 tab 2 times per day [Active]; trazodone 50 mg Oral tab 1 tab [Active]; carvedilol 25 mg oral tab 1 tab 2 times per day [Active]; Atrovent Inhl [Active]; - PMHx: 10:21 CVA; Diabetes - NIDDM; Hypertension; ll1 10:56 High Cholesterol; jl7 - PSHx: 10:21 Hernia repair; cyst removal; ll1 - Immunization history:: Flu vaccine is not up to date. - Social history:: Smoking status: Patient reports the use of cigarette tobacco products, smokes one-half pack cigarettes per day. Screenin:30 Abuse screen: Denies threats or abuse. Denies injuries from another. Nutritional jl7 screening: No deficits noted. Tuberculosis screening: No symptoms or risk factors identified. Fall Risk IV access (20 points). Total Overton Fall Scale indicates No Risk (0-24 pts). Assessment: 10:30 General: Appears in no apparent distress. uncomfortable, Behavior is calm, cooperative, jl7 appropriate for age. Pain: Complains of pain in HARDY Pain currently is 7 out of 10 on a pain scale. Neuro: Level of Consciousness is awake, alert, obeys commands, Oriented to person, place, time, situation. Cardiovascular: Patient's skin is warm and dry. Respiratory: Airway is patent Respiratory effort is even, unlabored, Respiratory pattern is regular, symmetrical. GI: Bowel sounds present X 4 quads. Abd is soft. Derm: Skin is pink, warm \T\ dry. 11:08 Reassessment: ERD notified of BP, gave VO to administer pt's morning medications. jl7 12:00 Reassessment: Patient appears in no apparent distress at this time. No changes from jl7 previously documented assessment. Patient and/or family updated on plan of care and expected duration. Pain level reassessed. Patient is alert, oriented x 3, equal unlabored respirations, skin warm/dry/pink. 13:00 Reassessment: Patient appears in no apparent distress at this time. Patient and/or jl7 family updated on plan of care and expected duration. Pain level reassessed. Patient is alert, oriented x 3, equal unlabored respirations, skin warm/dry/pink. Patient states feeling better. 13:55 Reassessment: Attempted to discharge pt, pt requesting for ERD to write prescriptions jl7 for the medications he ran out of. ERD notified. Vital Signs: 10:21 BP 193 / 126; Pulse 77; Resp 18; Temp 98.1; Pulse Ox 98% ; Weight 83.91 kg; Height 5 ll1 ft. 5 in. (165.10 cm); Pain 7/10; 11:07 BP 213 / 120; Pulse 76; Resp 15; Pulse Ox 100% ; jl7 11:59 BP 185 / 114; Pulse 75; Resp 17; Pulse Ox 100% ; jl7 12:49 BP 186 / 111; Pulse 61; Resp 15; Pulse Ox 100% ; jl7 13:45 BP 182 / 105; Pulse 62; Resp 17; Pulse Ox 97% ; jl7 10:21 Body Mass Index 30.79 (83.91 kg, 165.10 cm) ll1 ED Course: 10:14 Patient arrived in ED. mr 10:21 Arm band placed on Patient placed in an exam room, on a stretcher. ll1 10:23 Triage completed. ll1 10:47 Kwaku José, RN is Primary Nurse. jl7 11:00 Patient has correct armband on for positive identification. Placed in gown. Bed in low jl7 position. Call light in reach. Side rails up X 1. head bellhop captain on. Pulse ox on. NIBP on. Warm blanket given. 11:19 Andres Mae MD is Attending Physician. kdr 11:40 Initial lab(s) drawn, by az, sent to lab. Inserted saline lock: 20 gauge in left jl7 antecubital area, using aseptic technique. Blood collected. 11:53 CXR XRAY In Process Unspecified. EDMS 12:11 CT Abd/Pelvis - IV Contrast Only In Process Unspecified. EDMS 12:55 EKG done, by ED staff, reviewed by Andres Mae MD. jp3 13:25 EKG done, by ED staff, reviewed by Andres Mae MD. jp3 14:18 No provider procedures requiring assistance completed. IV discontinued, intact, jl7 bleeding controlled, No redness/swelling at site. Pressure dressing applied. Administered Medications: 11:10 Drug: amLODIPine 10 mg Route: PO; jl7 12:30 Follow up: Response: No adverse reaction; Blood pressure is lowered jl7 11:10 Drug: carvedilol 25 mg Route: PO; jl7 12:30 Follow up: Response: No adverse reaction; Blood pressure is lowered jl7 11:10 Drug: Lisinopril 40 mg Route: PO; jl7 12:30 Follow up: Response: No adverse reaction; Blood pressure is lowered jl7 11:10 Drug: Hydrochlorothiazide 25 mg Route: PO; jl7 12:00 Follow up: Response: No adverse reaction jl7 11:41 Drug: Zofran (Ondansetron) 4 mg Route: IVP; Site: left antecubital; jl7 12:00 Follow up: Response: No adverse reaction jl7 11:43 Drug: morphine 4 mg Route: IVP; Site: left antecubital; jl7 12:00 Follow up: Response: No adverse reaction; Pain is decreased jl7 Outcome: 13:31 Discharge ordered by . bryan 14:18 Discharged to home ambulatory. jl7 14:18 Condition: stable 14:18 Discharge instructions given to patient, Instructed on discharge instructions, follow up and referral plans. medication usage, Demonstrated understanding of instructions, follow-up care, medications, Prescriptions given X 13 14:20 Patient left the ED. jl7 Signatures: Dispatcher [employer] EDMS Andres Mae MD MD kdr Rivera, Mary mr Leal, Jahala, RN RN jl7 Samy Christine jp3 Jocy Levy RN RN ll1 Corrections: (The following items were deleted from the chart) 10:23 10:21 Acuity: TARA 3 ll1 ll1
--- NOTE | 2020-06-03 13:33 | EDPHYS ---
Physician Documentation [facility] Name: Jabier King Age: 64 yrs Sex: Male : 1955 Arrival Date: 06/03/2020 Time: 10:14 Bed 17 Private MD: ED Physician Andres Mae HPI: 06/03 19:17 This 64 yrs old Black Male presents to ER via Ambulatory with complaints of Abdominal kdr Pain, Headache. 19:18 The patient presents with abdominal pain in the epigastric area, in the upper abdomen. kdr Onset: The symptoms/episode began/occurred 2 week(s) ago. The symptoms do not radiate. Associated signs and symptoms: Pertinent positives: nausea, Pertinent negatives: nausea and vomiting, anorexia, blood in stools, chest pain, diarrhea, fever, headache, hematuria, palpitations, shortness of breath, testicular pain, vomiting, vomiting blood. The symptoms are described as achy, crampy, intermittent, vague, waxing/waning. Severity of pain: At its worst the pain was mild moderate just prior to arrival, in the emergency department the pain is unchanged. The patient has experienced similar episodes in the past, a few times. The patient has not recently seen a physician. Historical: - Allergies: 10:21 Bactrim; ll1 - Home Meds: 10:56 atorvastatin 40 mg oral tab 1 tab once daily [Active]; glipizide 10 mg Oral tab 1 tab jl7 once daily [Active]; triamterene-hydrochlorothiazid 37.5-25 mg Oral cap 1 cap once daily [Active]; amlodipine 10 mg tab 1 tab once daily [Active]; lisinopril 40 mg Oral tab 1 tab once daily [Active]; fluoxetine 20 mg Oral cap 1 cap once daily [Active]; minoxidil 2.5 mg Oral tab 3 tabs 2 times per day [Active]; aspirin 325 mg Oral tab 1 tab once daily [Active]; terazosin 5 mg oral cap 1 cap once daily [Active]; metformin 1,000 mg Oral tab 1 tab 2 times per day [Active]; trazodone 50 mg Oral tab 1 tab [Active]; carvedilol 25 mg oral tab 1 tab 2 times per day [Active]; Atrovent Inhl [Active]; - PMHx: 10:21 CVA; Diabetes - NIDDM; Hypertension; ll1 10:56 High Cholesterol; jl7 - PSHx: 10:21 Hernia repair; cyst removal; ll1 - Immunization history:: Flu vaccine is not up to date. - Social history:: Smoking status: Patient reports the use of cigarette tobacco products, smokes one-half pack cigarettes per day. ROS: 19:18 Constitutional: Negative for fever, chills, and weight loss, Eyes: Negative for injury, kdr pain, redness, and discharge, ENT: Negative for injury, pain, and discharge, Neck: Negative for injury, pain, and swelling, Cardiovascular: Negative for chest pain, palpitations, and edema, Respiratory: Negative for shortness of breath, cough, wheezing, and pleuritic chest pain, Back: Negative for injury and pain, : Negative for injury, bleeding, discharge, and swelling, MS/Extremity: Negative for injury and deformity, Skin: Negative for injury, rash, and discoloration, Psych: Negative for depression, anxiety, suicide ideation, homicidal ideation, and hallucinations, Allergy/Immunology: Negative for hives, rash, and allergies, Endocrine: Negative for neck swelling, polydipsia, polyuria, polyphagia, and marked weight changes, Hematologic/Lymphatic: Negative for swollen nodes, abnormal bleeding, and unusual bruising. 19:18 Abdomen/GI: Positive for abdominal pain, nausea, Negative for constipation, abdominal cramps, abdominal distension, anorexia, dysphagia, hematemesis, black/tarry stool, rectal pain, rectal bleeding, bowel incontinence. Exam: 19:18 Constitutional: This is a well developed, well nourished patient who is awake, alert, kdr and in no acute distress. Head/Face: Normocephalic, atraumatic. Eyes: Pupils equal round and reactive to light, extra-ocular motions intact. Lids and lashes normal. Conjunctiva and sclera are non-icteric and not injected. Cornea within normal limits. Periorbital areas with no swelling, redness, or edema. Neck: Trachea midline, no thyromegaly or masses palpated, and no cervical lymphadenopathy. Supple, full range of motion without nuchal rigidity, or vertebral point tenderness. No Meningismus. Chest/axilla: Normal chest wall appearance and motion. Nontender with no deformity. No lesions are appreciated. Cardiovascular: Regular rate and rhythm with a normal S1 and S2. No gallops, murmurs, or rubs. Normal PMI, no JVD. No pulse deficits. Respiratory: Lungs have equal breath sounds bilaterally, clear to auscultation and percussion. No rales, rhonchi or wheezes noted. No increased work of breathing, no retractions or nasal flaring. Back: No spinal tenderness. No costovertebral tenderness. Full range of motion. Male : Normal genitalia with no discharge or lesions. Skin: Warm, dry with normal turgor. Normal color with no rashes, no lesions, and no evidence of cellulitis. MS/ Extremity: Pulses equal, no cyanosis. Neurovascular intact. Full, normal range of motion. Neuro: Awake and alert, GCS 15, oriented to person, place, time, and situation. Cranial nerves II-XII grossly intact. Motor strength 5/5 in all extremities. Sensory grossly intact. Cerebellar exam normal. Normal gait. Psych: Awake, alert, with orientation to person, place and time. Behavior, mood, and affect are within normal limits. 19:18 Abdomen/GI: Inspection: abdomen appears normal, Bowel sounds: active, all quadrants, Palpation: soft, mild abdominal tenderness, in the epigastric area and left upper quadrant. 19:36 ECG was reviewed by the Attending Physician. kdr Vital Signs: 10:21 BP 193 / 126; Pulse 77; Resp 18; Temp 98.1; Pulse Ox 98% ; Weight 83.91 kg; Height 5 ll1 ft. 5 in. (165.10 cm); Pain 7/10; 11:07 BP 213 / 120; Pulse 76; Resp 15; Pulse Ox 100% ; jl7 11:59 BP 185 / 114; Pulse 75; Resp 17; Pulse Ox 100% ; jl7 12:49 BP 186 / 111; Pulse 61; Resp 15; Pulse Ox 100% ; jl7 13:45 BP 182 / 105; Pulse 62; Resp 17; Pulse Ox 97% ; jl7 10:21 Body Mass Index 30.79 (83.91 kg, 165.10 cm) ll1 MDM: 13:31 Patient medically screened. kdr 19:18 Data reviewed: vital signs, nurses notes, lab test result(s), radiologic studies. kdr Counseling: I had a detailed discussion with the patient and/or guardian regarding: the historical points, exam findings, and any diagnostic results supporting the discharge/admit diagnosis, lab results, radiology results, the need for outpatient follow up. 06/03 10:34 Order name: Urine Dipstick--Ancillary (enter results); Complete Time: 13:04 hb 06/03 11:29 Order name: Basic Metabolic Panel; Complete Time: 13:04 kdr 06/03 11:29 Order name: CBC with Diff; Complete Time: 13:04 kdr 06/03 11:29 Order name: Hepatic Function; Complete Time: 13:04 kdr 06/03 11:29 Order name: Lipase; Complete Time: 13:04 kdr 06/03 11:29 Order name: Troponin (emerg Dept Use Only); Complete Time: 13:04 kdr 06/03 11:29 Order name: CT Abd/Pelvis - IV Contrast Only; Complete Time: 13:04 kdr 06/03 11:29 Order name: CXR XRAY; Complete Time: 13:04 kdr 06/03 11:29 Order name: IV Saline Lock; Complete Time: 11:59 kdr 06/03 11:29 Order name: Labs collected and sent; Complete Time: 11:59 kdr 06/03 11:29 Order name: EKG Strip; Complete Time: 12:51 kdr 06/03 11:31 Order name: EKG; Complete Time: 11:32 jl7 EC:36 Rate is 60 beats/min. Rhythm is regular, Normal Sinus Rhythm with No ectopy. QRS [place] kdr is Normal. ID interval is normal. QRS interval is normal. QT interval is normal. Clinical impression: Normal ECG. Administered Medications: 11:10 Drug: amLODIPine 10 mg Route: PO; jl7 12:30 Follow up: Response: No adverse reaction; Blood pressure is lowered jl7 11:10 Drug: carvedilol 25 mg Route: PO; jl7 12:30 Follow up: Response: No adverse reaction; Blood pressure is lowered jl7 11:10 Drug: Lisinopril 40 mg Route: PO; jl7 12:30 Follow up: Response: No adverse reaction; Blood pressure is lowered jl7 11:10 Drug: Hydrochlorothiazide 25 mg Route: PO; jl7 12:00 Follow up: Response: No adverse reaction jl7 11:41 Drug: Zofran (Ondansetron) 4 mg Route: IVP; Site: left antecubital; jl7 12:00 Follow up: Response: No adverse reaction jl7 11:43 Drug: morphine 4 mg Route: IVP; Site: left antecubital; jl7 12:00 Follow up: Response: No adverse reaction; Pain is decreased jl7 Disposition: 06/03/20 13:31 Discharged to Home. Impression: Abdominal and pelvic pain, Headache. - Condition is Stable. - Discharge Instructions: Abdominal Pain, Adult, [id number]. - Prescriptions for Atrovent HFA 17 mcg/actuation Inhalation HFA aerosol inhaler - inhale 2 puff by INHALATION route 4 times per day As needed; 2 Cartridge. amlodipine 10 mg Oral tablet - take 1 tablet by ORAL route once daily; 15 tablet. atorvastatin 40 mg Oral tablet - take 1 tablet by ORAL route once daily; 15 tablet. carvedilol 25 mg Oral tablet - take 1 tablet by ORAL route 2 times per day with food; 20 tablet. lisinopril 40 mg Oral tablet - take 1 tablet by ORAL route once daily; 15 tablet. minoxidil 2.5 mg Oral tablet - take 3 tablet by ORAL route 2 times per day; 60 tablet. Terazosin 5 mg Oral Capsule - take 1 capsule by ORAL route once daily at bedtime; 20 capsule. Triamterene- Hydrochlorothiazide 37.5-25 mg Oral Tablet - take 1 tablet by ORAL route once daily; 20 tablet. Glipizide 10 mg Oral Tablet - take 1 tablet by ORAL route once daily before a meal; 20 tablet. Metformin 1,000 mg Oral Tablet - take 1 tablet by ORAL route every 12 hours with morning and evening meals; 20 tablet. - Medication Reconciliation Form, Thank You Letter, SBAR form form. - Follow up: Private Physician; When: 2 - 3 days; Reason: If symptoms return, Further diagnostic work-up, Recheck today's complaints, Continuance of care, Re-evaluation by your physician. - Problem is an ongoing problem. - Symptoms have improved. Signatures: Dispatcher [employer] EDMS Andres Mae MD MD kdr Leal, Jahala, RN RN jl7 Jocy Levy RN RN ll1 Corrections: (The following items were deleted from the chart) 14:20 13:31 06/03/2020 13:31 Discharged to Home. Impression: Abdominal and pelvic pain; jl7 Headache. Condition is Stable. Forms are SBAR form, Medication Reconciliation Form, Thank You Letter, Antibiotic Education, Prescription Opioid Use. Follow up: Private Physician; When: 2 - 3 days; Reason: If symptoms return, Further diagnostic work-up, Recheck today's complaints, Continuance of care, Re-evaluation by your physician. Problem is an ongoing problem. Symptoms have improved. kdr
[2020-06-03 15:29] VITALS: TEMP 98.1
[2020-06-03 15:36] VITALS: BP 182/105; O2SAT 97
--- NOTE | 2020-06-04 11:30 | EKG ---
Test Date: 2020-06-03 Test Time: 13:19:12 Director Of Content Marketing: JAS MEASUREMENT RESULTS: Intervals: Rate: 60 WA: 160 QRSD: 66 QT: 474 QTc: 474 [place]: P: 67 WA: 160 QRS: 77 T: 66 INTERPRETIVE STATEMENTS: Normal sinus rhythm Normal ECG Compared to ECG 06/03/2020 12:41:05 Atrial flutter no longer present Myocardial infarct finding no longer present Electronically Signed On 06-04-20 11:27:17 CDT by Ac Solis
--- NOTE | 2020-06-04 11:30 | EKG ---
Test Date: 2020-06-03 Test Time: 12:41:05 Lemon Grower: JAS MEASUREMENT RESULTS: Intervals: Rate: 61 LA: QRSD: 60 QT: 464 QTc: 467 [place]: P: 26 LA: QRS: 65 T: 59 INTERPRETIVE STATEMENTS: Atrial flutter Septal infarct, age undetermined Abnormal ECG Compared to ECG 04/24/2020 20:20:25 Sinus rhythm no longer present Myocardial infarct finding still present Electronically Signed On 06-04-20 11:27:18 CDT by Ac Solis
== END 2020-06-03 14:20 | disposition home or self-care (01) ==
LOC: ER 10:11
DX: R51.9 Headache, unspecified (principal); I10 Essential (primary) hypertension; E11.9 Type 2 diabetes mellitus without complications; E78.00 Pure hypercholesterolemia, unspecified; F17.210 Nicotine dependence, cigarettes, uncomplicated; Z88.1 Allergy status to other antibiotic agents; Z79.82 Long term (current) use of aspirin; Z86.73 Personal history of transient ischemic attack (TIA), and cerebral infarction without residual deficits
CPT/HCPCS: 93005 ×2; 85025; 80048; 36415; 82565; 80076; 81003; 84484; 83690; 74177; 71045; Q9967; J2405; 96374; 96375; 99285

== ENCOUNTER 2020-06-28 09:23 | Emergency (ER) | payer OTHER ==
--- OUTSIDE RECORDS SUMMARY | 2020-06-28 09:25 | XMS REPORT | Summary of Care ---
:1955 Author Organization [facility] Address [address] [place] [address] Care Team Providers Name Role Phone MD Lynnette Primary Care Provider Encounter Details Date Type Department Care Team Description 06/18/2020 Orders Only [facility] Doctor Unassigned, No [address] [facility] [place] [address] [address] [place] [address] Allergies Not on Filedocumented as of this encounter (statuses as of 06/18/2020) Medications Not on filedocumented as of this encounter (statuses as of 06/18/2020) Active Problems Not on filedocumented as of this encounter (statuses as of 06/18/2020) Social History Tobacco Use Types Packs/Day Years Used Date Never Assessed Sex Assigned at Date Recorded Not on file documented as of this encounter Last Filed Vital Signs Not on filedocumented in this encounter Plan of Treatment Date Type Specialty Care Team Description 06/18/2020 Office Visit Family Medicine Zak Church MD [address] [place] [address] Dr [place] [address] [place] [address] 615 15 [phone] Health Maintenance Due Date Last Done Comments HEPATITIS C (HCV) SCREEN 1955 PNEUMOCOCCAL 0-64 YEARS COMBINED SERIES (1 of 1 - 1962 PPSV23) Depression Screening 1968 DTaP,Tdap,and Td Vaccines (1 - Tdap) 10/26/1975 COLON CANCER SCREENING ANNUAL FIT/FOBT 2006 COLON CANCER SCREENING FIT DNA EVERY 3 YEARS 2006 COLON CANCER SCREENING SIGMOIDOSCOPY EVERY 5 YEARS 2006 COLONOSCOPY 2006 Colorectal Cancer Screening 2006 Zoster Recombinant Vaccine (SHINGRIX) (1 of 2) 2006 INFLUENZA VACCINE (#1) 2020 documented as of this encounter Procedures Procedure Name Priority Date/Time Associated Diagnosis Comme nts ASSIGNMENT OF BENEFITS Routine 06/18/2020 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
--- OUTSIDE RECORDS SUMMARY | 2020-06-28 09:25 | XMS REPORT | Summary of Care ---
:1955 Author Organization [facility] - [facility] Address [address] [place] [address] Care Team Providers Name Role Phone MD Lynnette Primary Care Provider Encounter Details Date Type Department Care Team Description 06/18/2020 Letter (Out) [facility] Crono Message s Doctor Unassigned, No [address] [facility] [place] [address] [address] [facility] [phone] [place] [address] Allergies Not on Filedocumented as of this [...] Office Visit Family Medicine Zak Church MD [address] [place], [place] [address] [phone] Health Maintenance Due Date Last Done Comments HEPATITIS C (HCV) SCREEN 1955 PNEUMOCOCCAL 0-64 YEARS COMBINED SERIES (1 of - 1962 PPSV23) Depression Screening 1968 DTaP,Tdap,and Td Vaccines (1 - Tdap) 10/26/1975 COLON CANCER SCREENING ANNUAL FIT/FOBT 2006 COLON CANCER SCREENING FIT DNA EVERY 3 YEARS 2006 COLON CANCER SCREENING SIGMOIDOSCOPY EVERY 5 YEARS 2006 COLONOSCOPY 2006 Colorectal Cancer Screening 2006 Zoster Recombinant Vaccine (SHINGRIX) (1 of 2) 2006 INFLUENZA VACCINE (#1) 2020 documented as of this encounter Results Not on filedocumented in this encounter Insurance Payer Benefit Plan / Subscriber ID Effective Dates Phone Addre ss Type Group [employer] MEDICAID OF [id number] 2020-Halie [phone] [address] Medicaid [place] t [id number] [place] [address] [facility] [place] [id number] 2018-Preseboni [address] [place] [id number] documented as of this encounter
--- OUTSIDE RECORDS SUMMARY | 2020-06-28 09:26 | XMS REPORT | Summary of Care ---
:1955 Author Organization [facility] Address [address] [place] [address] Care Team Providers Name Role Phone MD Lynnette Primary Care Provider Reason for Visit Reason Comments Hypertension Abdominal Pain Auth/Cert Status Reason Specialty Diagnoses / Referred By Referred To Procedures Contact Contact Emergency Medicine [facility] Em ergency Dept [address] [place] [address] Fax: Encounter Details Date Type Department Care Team Description 06/18/2020 Emergency ADC-Emergency Amarilys Peter PAC Hypertension, unspecified type (Primary Dx); Department [address] [facility] Other chest pain [address] [place], [place] [address] [address] [phone] [place] [address] [phone] Allergies No Known Allergiesdocumented as of this encounter (statuses as of 06/18/2020) Medications Medication Sig Dispensed Refills Start Date End Date Status triamterene-hydrochlor Take 1 tablet by 0 06/03/2020 Active othiazid 37.5-25 mg mouth daily. tablet ipratropium (ATROVENT Inhale 2 Puffs 4 0 Active HFA) 17 mcg/actuation (four) times inhaler daily. Miscellaneous Medical I10 - Dispense 1 Kit 0 06/18/2020 Active Supply KitIndications: blood pressure Asymptomatic cuff (any hypertension brand), take BP at home BID amLODIPine-benazepriL Take 1 capsule 90 capsule 1 06/18/2020 Active 10-40 mg per by mouth daily. capsuleIndications: Asymptomatic hypertension traZODone 50 mg Take 1 tablet by 90 tablet 1 06/18/2020 Active tabletIndications: mouth at Mild depression, bedtime. Anxiety, Insomnia, unspecified type terazosin 5 mg Take 1 capsule 90 capsule 1 06/18/2020 Active capsuleIndications: by mouth every Asymptomatic evening. hypertension minoxidiL 2.5 mg TAKE THREE (3) 180 tablet 2 06/18/2020 Active tabletIndications: TABLET(S) BY Asymptomatic MOUTH TWICE A hypertension DAY. metFORMIN 1,000 mg TAKE ONE (1) 180 tablet 1 06/18/2020 Active tabletIndications: TABLET(S) BY Diabetes mellitus type MOUTH EVERY II, non insulin TWELVE HOURS dependent WITH MORNING AND EVENING MEALS. glipiZIDE 10 mg TAKE ONE (1) 90 tablet 1 06/18/2020 Active tabletIndications: TABLET(S) BY Diabetes mellitus type MOUTH ONCE A DAY II, non insulin BEFORE MEALS. dependent FLUoxetine 20 mg Take 1 capsule 90 capsule 1 06/18/2020 Active capsuleIndications: by mouth daily. Mild depression, Anxiety carvediloL 25 mg TAKE ONE (1) 180 tablet 1 06/18/2020 Active tabletIndications: TABLET(S) BY Asymptomatic MOUTH TWICE A hypertension DAY WITH FOOD. atorvastatin 40 mg Take 1 tablet by 90 tablet 1 06/18/2020 Active tabletIndications: mouth at Dyslipidemia bedtime. aspirin 325 mg Take 1 tablet by 90 tablet 1 06/18/2020 Active tabletIndications: mouth daily with Asymptomatic breakfast. hypertension, Cerebrovascular accident (CVA), unspecified mechanism nicotine 21 mg/24 hr Apply 1 Patch to 42 Patch 0 06/18/2020 Active patchIndications: area(s) every 24 Nicotine dependence, (twenty-four) cigarettes, with hours. Apply unspecified 21mg patch daily nicotine-induced x 6 weeks; then disorders apply 14mg patch daily x 2 weeks; then apply 7mg patch daily x 2 weeks; stop smoking on therapy initiation nicotine 14 mg/24 hr Apply 1 Patch to 14 Patch 0 06/18/2020 Active patchIndications: area(s) every 24 Nicotine dependence, (twenty-four) cigarettes, with hours. Apply unspecified 21mg patch daily nicotine-induced x 6 weeks; then disorders apply 14mg patch daily x 2 weeks; then apply 7mg patch daily x 2 weeks; stop smoking on therapy initiation nicotine 7 mg/24 hr Apply 1 Patch to 14 Patch 0 06/18/2020 Active patchIndications: area(s) every 24 Nicotine dependence, (twenty-four) cigarettes, with hours. Apply unspecified 21mg patch daily nicotine-induced x 6 weeks; then disorders apply 14mg patch daily x 2 weeks; then apply 7mg patch daily x 2 weeks; stop smoking on therapy initiation [id number]-[id number] Take 1 capsule 180 capsule 1 06/18/2020 Active e 12,000-38,000 by mouth 3 -60,000 unit (three) times capsuleIndications: daily with Alcohol-induced meals. chronic pancreatitis documented as of this encounter (statuses as of 06/18/2020) Active Problems Problem Noted Date Asymptomatic hypertension 06/18/2020 Cerebrovascular accident (CVA), unspecified mechanism 06/18/2020 Memory changes 06/18/2020 Dyslipidemia 06/18/2020 Diabetes mellitus type II, non insulin dependent 06/18 Tremor 06/18/2020 Anxiety 06/18/2020 Mild depression 06/18/2020 Insomnia, unspecified type 06/18/2020 Nicotine dependence, cigarettes, with unspecified tanja federico-induced 06/18/2020 disorders Alcohol-induced chronic pancreatitis 06/18/2020 Need for hepatitis C screening test 06/18/2020 documented as of this encounter (statuses as of 06/18/2020) Social History Tobacco Use Types Packs/Day Years Used Date Current Every Day Smoker Cigarettes 1 30 Comments: open to trial of nicotine lares sdermal therapy Alcohol Use Drinks/Week oz/Week Comments Yes 5 Glasses of wine 5.0 Sex Assigned at Date Recorded Not on file COVID-19 Exposure Response Date Recorded In the last month, have you been in contact with No / Unsure 06/18/2020 12:12 PM [facility] [employer] [facility] someone who was confirmed or suspected to have Coronavirus / COVID-19? documented as of this encounter Last Filed Vital Signs Vital Sign Reading Time Taken Comments Blood Pressure 141/94 06/18/2020 1:30 PM [facility] Pulse 69 06/18/2020 1:30 PM [facility] [employer] [facility] Temperature 36.7 C (98.1 F) 06/18/2020 12:16 PM [facility] Respiratory Rate 15 06/18/2020 1:30 PM [facility] [employer] [facility] Oxygen Saturation 100% 06/18/2020 1:30 PM [facility] [employer] [facility] Inhaled Oxygen Concentration - - Weight 81.6 kg (180 lb) 06/18/2020 12:16 PM [facility] Height 165.1 cm (5' 5") 06/18/2020 12:16 PM [facility] Body Mass Index 29.95 06/18/2020 12:16 PM [facility] [employer] [facility] documented in this encounter Discharge Instructions AttachmentsThe following attachments cannot be sent through Care Everywhere.High Blood Pressure, Controlling (French)documented in this encounter ED Notes Maira Melendez RN - 06/18/2020 12:12 PM CSTPatient reports that he went to a follow up visit with his PCP today and was today to come to the EDdue to his BP being elevated. Patient denies CP or shortness of breath reports that he takes lisinopril for HTN but has not taken it today Bp 165/130 Patient also report upper abdominal pain that started "a few days ago" was seen [facility] and was discharged documented in this encounter Miscellaneous Notes ED Nurse Note - Aparna Jaimes RN - 06/18/2020 2:01 PM CSTDischarge instructions/prscribed medications reviewed with pt with verbalized understanding. NAD, respirations even and unlabored, AOX4, ambulatory out of ED with a steady gait. [employer] documented in this encounter Plan of Treatment Date Type Specialty Care Team Description 07/02/2020 Office Visit Family Medicine Zak Church MD [address] [place] [address] Dr Irving [address] [place] [address] 77 [phone] Name Type Priority Associated Diagnoses Order S chedule EKG-12 LEAD ROUTINE HEART STATION STAT Other chest pain ONC E for 1 Occurrences ONCE starting 2019 until 0 Health Maintenance Due Date Last Done Comments HEPATITIS C (HCV) SCREEN 1955 HgA1C 1957 PNEUMOCOCCAL 0-64 YEARS COMBINED 1962 SERIES (1 of 1 - PPSV23) CREATININE (SERUM) 1966 EYE EXAM 1966 LDL-C 1966 URINE MICROALBUMIN 1966 FOOT EXAM 1974 DTaP,Tdap,and Td Vaccines (1 - 10/26/1975 Tdap) COLON CANCER SCREENING ANNUAL 2006 FIT/FOBT COLON CANCER SCREENING FIT DNA 2006 EVERY 3 YEARS COLON CANCER SCREENING 2006 SIGMOIDOSCOPY EVERY 5 YEARS COLONOSCOPY 2006 Colorectal Cancer Screening 2006 Zoster Recombinant Vaccine 2006 (SHINGRIX) (1 of 2) LUNG CANCER SCREEN: Recommended 10/26/2011 for age 55-80 with 30 + pack year history INFLUENZA VACCINE (#1) 2020 Postponed from 04/15/2020 (Records not hayley ilable) Depression Screening 06/18/2021 06/18/2020 documented as of this encounter Procedures Procedure Name Priority Date/Time Associated Comments Diagnosis ACTIVATED PARTIAL STAT 06/18/2020 12:52 Other chest pain Re sults for this THRMPLAS JACKSON PM [facility] procedure are i n the results section. PROTHROMBIN TIME / STAT 06/18/2020 12:52 Other chest pain R esults for this INR PM [facility] [employer] procedure are i n the results section. CBC WITH DIFF STAT 06/18/2020 12:52 Other chest pain Result s for this PM [facility] [employer] procedure are i n the results section. COMP. METABOLIC PANEL STAT 06/18/2020 12:52 Other chest amari n Results for this (62000) PM [facility] [employer] [facility] procedure are i n the results section. TROPONIN I STAT 06/18/2020 12:52 Other chest pain Results for this PM [facility] [employer] procedure are i n the results section. LIPASE STAT 06/18/2020 12:52 Other chest pain Results for this PM [facility] [employer] procedure are i n the results section. documented in this encounter Results CBC WITH DIFF (06/18/2020 12:52 PM [facility] [employer]) Pathologist Sig nature WBC 8.67 4.20 - 10.70 [facility] 10*3/L [facility] RBC 4.78 4.26 - 5.52 [facility] 10*6/L [facility] HGB 14.7 12.2 - 16.4 [facility] g/dL HOSPITAL [facility] HCT 43.4 38.4 - 49.3 % [facility] MCV 90.8 81.7 - 95.6 fL [facility] MCH 30.8 26.1 - 32.7 pg [facility] MCHC 33.9 31.2 - 35.0 [facility] g/dL [facility] RDW-SD 43.4 38.5 - 51.6 fL [facility] RDW-CV 13.1 12.1 - 15.4 % [facility] PLT 192 150 - 328 [facility] 10*3/L [facility] MPV 9.5 (L) 9.8 - 13.0 fL [facility] NRBC/100 WBC 0.0 0.0 - 10.0 /100 [facility] WBCs [facility] NRBC x10^3 <0.01 10*3/L [facility] GRAN MAT (NEUT) % 50.2 % [facility] IMM GRAN % 0.30 % [facility] LYMPH % 38.8 % [facility] MONO % 8.5 % [facility] EOS % 1.6 % [facility] BASO % 0.6 % [facility] GRAN MAT x10^3(ANC) 4.35 1.99 - 6.95 [facility] 10*3/uL [facility] IMM GRAN x10^3 0.03 0.00 - 0.06 [facility] 10*3/uL [facility] LYMPH x10^3 3.36 (H) 1.09 - 3.23 [facility] 10*3/uL [facility] MONO x10^3 0.74 0.36 - 1.02 [facility] 10*3/uL [facility] EOS x10^3 0.14 0.06 - 0.53 [facility] 10*3/uL [facility] BASO x10^3 0.05 0.01 - 0.09 [facility] 10*3/uL [facility] Specimen Blood - VENOUS Performing Organization Address City/[facility]/Zipcode Phone Number [facility] CLIA: [id number] [place], [place] [id number] LABORATORY [address] [place] [address] Drive LIPASE, SERUM (06/18/2020 12:52 PM [facility] [employer] [facility]) Pathologist [facility] LIPASE 126 0 - 220 U/L [facility] Specimen Blood - VENOUS Performing Organization Address City/[facility]/Zipcode Phone Number [facility] CLIA: [id number] [place], [place] [id number] LABORATORY [address] [facility] COMP. METABOLIC PANEL (78547) (06/18/2020 12:52 PM [facility] [employer] [facility]) Pathologist Sig nature NA 140 135 - 145 [facility] mmol/L [facility] K 4.2 3.5 - 5.0 [facility] mmol/L [facility] CL 104 98 - 108 mmol/L [facility] CO2 TOTAL 31 23 - 31 mmol/L [facility] AGAP 5 2 - 16 [facility] BUN 13 7 - 23 mg/dL [facility] GLUCOSE 131 (H) 70 - 110 mg/dL [facility] CREATININE 0.90 0.60 - 1.25 [facility] mg/dL [facility] TOTAL BILI 0.6 0.1 - 1.1 mg/dL [facility] CALCIUM 9.7 8.6 - 10.6 [facility] mg/dL [facility] T PROTEIN 8.1 6.3 - 8.2 g/dL [facility] ALBUMIN 4.6 3.5 - 5.0 g/dL [facility] ALK PHOS 109 34 - 122 U/L [facility] ALTv 15 5 - 50 U/L [facility] AST(SGOT) 23 13 - 40 U/L [facility] eGFR Calculation 85.2 mL/min/1.73m2 [facility] ([facility]AT[facility] Icelandic) eGFR Calculation 103.3 mL/min/1.73m2 [facility] () [facility] Specimen Blood - VENOUS Narrative Performed At [facility] of Glomerular Filtration Rate (GFR) [facility] and Staging of Kidney Disease* + + +- + | GFR (mL/min/1.73 m2) | With Kidney Damage | Without Kidney Damage + + +- + | >90 | Stage one | Normal + + +- + | 60-89 | Stage two | Decreased GFR + + +- + | 30-59 | Stage three | Stage three + + +- + | 15-29 | Stage four | Stage four + + +- + | <15 (or dialysis) | Stage five | Stage five + + +- + *Each stage assumes the associated GFR level has been in effect for at least three months. Stages 1 to 5, with or without kidney disease, indicate chronic kidney disease. Notes: Determination of stages one and two (with eGFR >59mL/min/1.73 m2) requires estimation of kidney damage for at least three months as defined by structural or functional abnormalities of the kidney, manifested by either: Pathological abnormalities or Markers of kidney damage (including abnormalities in the composition of the blood or urine or abnormalities in imaging tests). Performing Organization Address [facility] Phone Number [facility] CLIA: [id number] [place] [address] PROTHROMBIN TIME / INR (06/18/2020 12:52 PM [facility] [employer] [facility]) PROTIME PATIENT 14.0 12.0 - 14.7 [facility] LABORATORY INR 1.1Comment: Normal [facility] INR <1.1; Warfarin [facility] Therapeutic range LABORATORY 2.0 to 3.0 or 2.5 to 3.5, depending upon the indications. Specimen Blood - VENOUS Performing Organization Address [facility] Phone Number [facility] CLIA: [id number] [place] [address] aPTT (06/18/2020 12:52 PM [facility] [employer] [facility]) Pathologist Sig nature APTT Patient 26 23 - 38 Seconds [facility] Specimen Blood - VENOUS Narrative Performed At The [facility] patient population mean normal value [facility] for aPTT is 30 seconds. Performing Organization Address [facility] Phone Number [facility] CLIA: [id number] [place] [address] TROPONIN I (06/18/2020 12:52 PM [employer]) Pathologist Sig nature TROPONIN I <0.012 <=0.034 ng/mL [facility] Specimen Blood - VENOUS Narrative Performed At Equal or Less than 0.034 ng/ml---Normal [facility] Note: Cardiac troponin begins to rise 3-4 hours after the onset of ischemia. Repeat in 4-6 hours if the sample was drawn within 3-4 hours of the onset of the symptom and found normal. Between 0.035 and 0.120 ng/mL--- Borderline. Questionable myocardial injury or necros is Note: Serial measurement may be necessary to confirm or exclude the diagnosis of myocardial injury or necrosis; Clinical correlation (symptoms, EKGs, imaging studies, and others) required; Repeat in 4-6 hours if clinically indicated. Equal or Higher than 0.121 ng/mL---Abnormal. Myocardial Injury or Necrosis Likely Biotin has been reported to cause a negative bias, interpret results relative to patient's use of biotin. Performing Organization Address City/State/Zipcode Phone Number [facility] CLIA: [id number] [place] [address] documented in this encounter Visit Diagnoses Diagnosis Hypertension, unspecified type - Primary Other chest pain documented in this encounter Administered Medications Medication Order MAR Action Action Date Dose Rate Site lisinopriL (PRINIVIL,ZESTRIL) Given 06/18/2020 1:10 PM [facility] [facility] 20 m g tablet 20 mg 20 mg, Oral, DAILY, First dose (after last modification) on Tue06/18/20 at 1315, Until Discontinued, Routine Medication Order MAR Action Action Date Dose Rate Site hydroCHLOROthiazide (ESIDRIX) tablet Given 06/18/2020 1:10 PM 2 5 mg 25 mg [facility] 25 mg, Oral, ONCE, 1 dose, Tue06/18/20 at 1345, DAVE documented in this encounter Insurance Payer Benefit Plan / Subscriber ID Effective Dates Phone Addre ss Type Group [facility] MEDICAID OF [id number] 2020-Halie [phone] Medicaid [place] t [id number] [place] [address] documented as of this encounter
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
--- OUTSIDE RECORDS SUMMARY | 2020-06-28 09:27 | XMS REPORT | Summary of Care ---
:1955 Author Organization [facility] Address [address] [place] [address] Care Team Providers Name Role Phone MD Lynnette Primary Care Provider Reason for Referral (Routine) Status Reason Specialty Diagnoses / Referred By Referred To Procedures Contact Contact New Request Cardiology Diagnoses Asymptomatic hypertension Zak Church, Procedures CONSULT/REFERRAL CARDIOLOGY [address] [place] [address] Dr Irving [address] [place] [address] (Routine) Status Reason Specialty Diagnoses / Referred By Referred To Procedures Contact Contact New Request Neurology Diagnoses Cerebrovascular accident (CVA), unspecified mechanism Tremor Memory changes Zak Church, Procedures CONSULT/REFERRAL NEUROLOGY [address] [place] [address] Dr Irving [address] [place] [address] [phone] (DAVE) Status Reason Specialty Diagnoses / Referred By Referred To Procedures Contact Contact New Request Cardiology Diagnoses Asymptomatic hypertension Zak Church, Procedures ECHO ROUTINE W/DOPPLER COLOR Preferred Location: [facility] [address] [place] [address] Dr Irving [address] [place] [address] Reason for Visit Reason Comments New Patient Establish Care Electronystagmography Diabetes Mellitus II STROKE Hyperlipidemia Depression Anxiety INSOMNIA GI Problem pancreatitis Alcohol Problem Nicotine Dependence Encounter Details Date Type Department Care Team Description 06/18/2020 Office Visit [facility] Zak Church, Asymptomat ic hypertension (Primary Dx); Pediatric and Adult MD Cerebrovascular accident (CVA), unspecif ied mechanism; Primary Care- [address] [place] [address] ges; [facility]; [address] [facility] Aristides [address], [address] [place], [place] Diabetes mellitus type II, n on insulin dependent; [place] [address] Mild depression; [id number] Anxiety; [phone] Insomnia, unspe cified type; (Fax) Alcohol-induced chronic [...] 2 weeks; stop smoking on therapy initiation [id number] Take 1 capsule 180 capsule 1 Active [...] with No / Unsure 06/18/2020 12:12 PM RESEARCH INVESTIGATOR someone who was confirmed or suspected to have Coronavirus / COVID-19? documented as of this encounter Last Filed Vital Signs Vital Sign Reading Time Taken Comments Blood Pressure 181/116 06/18/2020 11:57 AM RESEARCH INVESTIGATOR Pulse 81 06/18/2020 10:15 AM RESEARCH INVESTIGATOR Temperature - - Respiratory Rate 20 06/18/2020 10:15 AM RESEARCH INVESTIGATOR Oxygen Saturation 100% 06/18/2020 10:15 AM RESEARCH INVESTIGATOR Inhaled Oxygen Concentration - - Weight 81.8 kg (180 lb 6.4 oz) 06/18/2020 10:15 AM RESEARCH INVESTIGATOR Height 165.1 cm (5' 5") 06/18/2020 10:15 AM RESEARCH INVESTIGATOR Body Mass Index 30.02 06/18/2020 10:15 AM RESEARCH INVESTIGATOR documented in this encounter Progress Notes Zak [...] salivation, called EMS and was brought to [facility] ER, then air-lifted to [facility], atthe time. Patient was discharged after about [...] a month ago at external facility , [facility], in [place], [place]. Patient currently smoked 1PPD for about [...] file Gets together: Not on file Attends spiritism service: Not on file Active member of [...] - ECHO ROUTINE W/DOPPLER COLOR Preferred Location: [facility]; Future - CONSULT/REFERRAL CARDIOLOGY Cerebrovascular accident (CVA), unspecified mechanism - Complication by uncontrolled HTN, mild memory changes and tremor - CONSULT/REFERRAL NEUROLOGY - aspirin 325 mg tablet; Take 1 tablet by mouth daily with breakfast. Dispense: 90 tablet; Refill: 1 Dyslipidemia - Prior labs unknown, future labs as ordered - LIPID PANEL (28113)(TOTAL CHOLESTEROL, TRIGLYCERIDES, HDL); Future - atorvastatin 40 [...] back on alcohol and cigarette - - dyjcpr-aobqdyqn-sabtzvs 12,000-38,000 -60,000 unit capsule; Take 1 capsule [...] improve. Zak Church MD, MPH, AAHIVS Clinical 911 Dispatcher, Department of Family Medicine [facility] Primary & Specialty Care - ADC 06/18/2020 11:35 AM Future Appointments In 2 weeks Zak Church MD [facility] Health Pediatric and Adult Primary Care- [facility] ARCH INVESTIGATOR documented in this encounter Plan of Treatment Date Type Specialty Care Team Description 07/02/2020 Office Visit Family Medicine Zak Church MD [address] [place] [address] Dr Irving [address] [place] [address] 775 15 [phone] Name Type Priority Associated Diagnoses Order S chedule COMP. METABOLIC PANEL LAB Routine Asymptomatic Expect ed: (05098) hypertension 06/18/2020, Expires: 06/18/2021 CBC WITH DIFF LAB Routine Asymptomatic Expected: hypertension 06/18/2020, Expires: 06/18/2021 FREE T3 LAB Routine Asymptomatic Expected: hypertension 06/18/2020, Expires: 06/18/2021 FREE T4 LAB Routine Asymptomatic Expected: hypertension 06/18/2020, Expires: 06/18/2021 GLYCOSYLATED LAB Routine Diabetes mellitus type Expec daniel: HEMOGLOBIN (A1C) II, non insulin 06/18/20 20, dependent Expires: 06/18/2021 LIPID PANEL LAB Routine Dyslipidemia Expected: (92729)(TOTAL 06/18/2020, CHOLESTEROL, Expires: TRIGLYCERIDES, HDL) 06/18/20 21 [...] (CATAPRES) tablet 0.2 Given 06/18/2020 11:39 AM RESEARCH INVESTIGATOR 0. 2 mg mg 0.2 mg, Oral, ONCE, 1 dose, Tue06/18/20 at 1245, Routine documented in this encounter Insurance Payer Benefit Plan / Subscriber ID Effective Dates Phone Addre ss Type Group [employer] MEDICAID OF [id number] 2020-Halie [phone] [address] Medicaid [place] t [id number] [place] [address] documented as of this encounter
--- OUTSIDE RECORDS SUMMARY | 2020-06-28 09:27 | XMS REPORT | Summary of Care ---
:1955 Author Organization [facility] Address [address] [place] [address] Care Team Providers Name Role Phone MD Lynnette Primary Care Provider Reason for Visit Reason Comments Rx Concern/Question Encounter Details Date Type Department Care Team Description 06/18/2020 Telephone [facility] Pediatric Zak Church MD Rx Concern/Question and Adult Primary Care- [address] [facility] [address], [address] [place] [address] [phone] Allergies No Known Allergiesdocumented as of this encounter (statuses as of 06/24/2020) Medications Medication Sig Dispensed Refills Start Date [...] 2 weeks; stop smoking on therapy initiation gekejg-rmvzvygf-hzepuq Take 1 capsule 180 capsule 1 06/18/2020 Active e 12,000-38,000 by mouth 3 -60,000 unit (three) times capsuleIndications: daily with Alcohol-induced meals. 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 documented as of this encounter Last Filed Vital Signs Not on filedocumented in this encounter Miscellaneous Notes Telephone Encounter - Zak Church MD - 06/24/2020 1:32 PM CSTWill verify status of network/registration with credentialing Dept. In the maintain, forwarding to Dr. Hurt for Rx. Let patient know. Thank you! Zak Church MD 06/24/2020 1:33 PM ER OPERATOR Telephone Encounter - Rachel Giraldo - 06/23/2020 1:56 PM CSTSpoke to pharmacist tech, Pharmacist tech. Reports the insurance (medicaid ) is with in there network but the provider that isprescribing the medication is not in network with medicaid. Another provider can reorder prescription for patient until we can call and resolve issue. Rachel Giraldo 06/23/2020 2:01 PM elephone Encounter - Keyla Levy - 06/23/2020 9:58 AM CSTPt's states that the pharmacy will not fill the prescriptions due to the physician not being in network. She would like to know how this has happened and what can be done next. Please contact [phone] for further assistance elephone Encounter - Pushpa Murrieta - 06/18/2020 4:47 PM CSTReceived Notification from [facility] stating Medicaid is not covering prescription for the patient written by Dr. Church. Please send prescriptions written by a medicaid approved physician Trazadone Minoxidil Atorvastatin Terazosin Amiodip/ Benazepril Glipizide Fluoxetine Metformin Carvedilol Creon documented in this encounter Plan of Treatment Date Type Specialty Care Team Description 07/02/2020 Office Visit Family Medicine Zak Church MD [address] [place] [address] Dr Mcnair [place], [place] 775 15 [phone] 07/03/2020 Laboratory Only [facility], Adc Echo Room 1 - Health Maintenance Due Date Last Done Comments [...] Effective Dates Phone Addre ss Type Group [facility] MEDICAID OF [id number] 2020-Halie [phone] [address] Medicaid [place] t [id number] [place] [address] [facility] [id number] 2018-Susannah [place] [address] documented as of this encounter
--- OUTSIDE RECORDS SUMMARY | 2020-06-28 09:27 | XMS REPORT | Continuity of Care Document ---
:1955 Author Organization [facility] t Address [address] [place] [address] Care Team Providers Name Role Phone Lynnette MUÑIZ Attending Clinician Problems This patient has no known problems. Allergies, Adverse Reactions, Alerts This patient has no known allergies or adverse reactions. Medications This patient has no known medications. Procedures This patient has no known procedures. Encounters Start End Encounter Admission Attending Care Care Encounter Source Date/Time Date/Time Type Type Clinicians Facility Department ID 2020-06-18 2020-06-18 [facility] [id number] 10:01:33 12:17:51 Visit Zak Ellis [id number] [place] [id number] Professio [phone] nal 044 Building 2020-06-18 2020-06-18 [facility] [id number] 00:00:00 00:00:00 Zak Ellis [id number] [place] [id number] Professio [phone] nal 044 [facility] Results This patient has no known results.
[2020-06-28] MEDS ORDERED: NA CHLORIDE 0.9% 1,000 ML ONE (09:57)
[2020-06-28] MEDS ORDERED: ONDANSETRON 4 MG/2 ML VIAL ONE (09:57)
[2020-06-28] MEDS ORDERED: MORPHINE 4 MG/ML SYR ONE (09:57)
[2020-06-28 10:26] LABS: Absolute Lymphocytes (CBC) 2.9 K/uL (0.7-4.9); Basophils % 0.7 % (0-1.3); Hematocrit 45.2 % (39.6-49.0); Lymphocytes % 38.2 % (15.3-44.8); MPV 7.8 fL (7.6-11.3); RBC Red Blood Cell Count 4.99 M/uL (4.33-5.43)
[2020-06-28 10:40] LABS: ALT/SGPT 19 U/L (12-78); AST/SGOT 18 U/L (15-37); Alkaline Phosphatase 108 U/L (45-117); BUN Blood Urea Nitrogen 24 mg/dL (7-18); Bicarbonate 27 mmol/L (21-32); Bilirubin Direct < 0.1 mg/dL (0-0.2); Bilirubin Total 0.4 mg/dL (0.2-1.0); Glucose Level 148 mg/dL (74-106); Lipase 373 U/L (73-393); Potassium 3.5 mmol/L (3.5-5.1); Protein, Total 8.6 g/dL (6.4-8.2); Sodium Level 138 mmol/L (136-145)
--- NOTE | 2020-06-28 11:23 | RAD REPORT ---
EXAM DESCRIPTION: CT - Abdomen Pelvis W Contrast - 06/28/2020 11:01 am CLINICAL HISTORY: ABD PAIN COMPARISON: Abdomen Pelvis W Contrast dated 06/03/2020 TECHNIQUE: Biphasic, helical CT imaging of the abdomen and pelvis was performed following 100 ml non -ionic IV contrast. No oral contrast administered. All CT scans are performed using dose optimization technique as appropriate and may include automated exposure control or mA/KV adjustment according to patient size. FINDINGS: No suspicious findings in the lung bases. No focal liver parenchymal lesion. There is a slight nodular contour to the liver capsule. No portal vein abnormality. Slight prominence of the biliary tree has not changed. No gallbladder abnormality i dentifiable. Gallstones can be occult on CT imaging. No splenic abnormality. Pancreatic duct is prominent similar to comparison. No pancreatic parenchymal focal abnormality. No p eripancreatic inflammatory stranding. Symmetric renal function is seen with no hydronephrosis or suspicious renal mass. No pyelonephritis o r acute parenchymal process. No bladder abnormalities. No adrenal abnormalities. No gastric dilatation or wall thickening. No suspicious small bowel finding. Patient has a large amou nt of stool filling but not dilating the colon from cecum and the proximal descending colon. The appe ndix is normal. No free air, free fluid or inflammatory stranding. No mass or bulky lymphadenopathy. Fat only perium bilical hernia not significantly different from recent comparison. Prominent bony degenerative changes are present similar to comparison. No acute bone findings seen. IMPRESSION: Contrast enhanced CT abdomen and pelvis showing no acute or emergent finding. No acute pancreatitis findings or acute right upper quadrant process. Patient has a large amount of stool filling but not dilating the colon from cecum to descending colon
--- NOTE | 2020-06-28 11:31 | EDPHYS ---
Physician Documentation [facility] Name: Jabier King Age: 64 yrs Sex: Male : 1955 Arrival Date: 06/28/2020 Time: 09:26 Bed 5 Private MD: ED Physician Haile Ruiz HPI: 06/28 10:09 This 64 yrs old Black Male presents to ER via Ambulatory with complaints of rn pancreatitis flare up. 10:09 The patient presents with abdominal pain in the epigastric area. Onset: The rn symptoms/episode began/occurred at an unknown time. The symptoms do not radiate. Associated signs and symptoms: Pertinent positives: nausea, Pertinent negatives: blood in stools, chest pain, constipation, diarrhea, fever, shortness of breath, vomiting, vomiting blood. The symptoms are described as crampy, intermittent. Modifying factors: The symptoms are alleviated by nothing, the symptoms are aggravated by touching the area. Severity of pain: At its worst the pain was moderate in the emergency department the pain is unchanged. The patient has experienced similar episodes in the past. The patient has not recently seen a physician. Reports pain similar to previous pancreatitis episodes, no vomiting, no fever, no blood in stool. Reports pain for weeks but worse over last few days, told him to come for eval. . Historical: - Allergies: 09:26 Bactrim; aa5 09:26 Bactrim; rb3 - Home Meds: 09:26 amlodipine 10 mg tab 1 tab once daily [Active]; aspirin 325 mg Oral tab 1 tab once rb3 daily [Active]; atorvastatin 40 mg Oral tab 1 tab once daily [Active]; Atrovent Inhl [Active]; carvedilol 25 mg Oral tab 1 tab 2 times per day [Active]; fluoxetine 20 mg Oral cap 1 cap once daily [Active]; glipizide 10 mg Oral tab 1 tab once daily [Active]; lisinopril 40 mg Oral tab 1 tab once daily [Active]; metformin 1,000 mg Oral tab 1 tab 2 times per day [Active]; minoxidil 2.5 mg Oral tab 3 tabs 2 times per day [Active]; terazosin 5 mg Oral cap 1 cap once daily [Active]; trazodone 50 mg Oral tab 1 tab [Active]; triamterene-hydrochlorothiazid 37.5-25 mg Oral cap 1 cap once daily [Active]; - PMHx: 09: CVA; Diabetes - NIDDM; High Cholesterol; Hypertension; aa5 09:26 CVA; Diabetes - NIDDM; High Cholesterol; Hypertension; rb3 - PSHx: 09: Hernia repair; cyst removal; aa5 09:26 Hernia repair; rb3 - Immunization history:: Adult Immunizations unknown. - Social history:: Smoking status: Patient denies any tobacco usage or history of. - Family history:: not pertinent. - Hospitalizations: : No recent hospitalization is reported. ROS: 10:09 Constitutional: Negative for fever, chills, and weight loss, Eyes: Negative for injury, rn pain, redness, and discharge, Cardiovascular: Negative for chest pain, palpitations, and edema, Respiratory: Negative for shortness of breath, cough, wheezing, and pleuritic chest pain, Abdomen/GI: + abd pain and nausea, no vomiting Back: Negative for injury and pain, MS/Extremity: Negative for injury and deformity, Skin: Negative for injury, rash, and discoloration, Neuro: Negative for headache, weakness, numbness, tingling, and seizure. Exam: 10:09 Constitutional: This is a well developed, well nourished patient who is awake, alert, rn and in no acute distress. Head/Face: Normocephalic, atraumatic. ENT: dry MM Cardiovascular: Regular rate and rhythm. No pulse deficits. Respiratory: Speaking full sentences. No increased work of breathing, no retractions or nasal flaring. Abdomen/GI: soft, + epigastric tenderness, no rebound Skin: Warm, dry MS/ Extremity: Pulses equal, no cyanosis. Neurovascular intact. Full, normal range of motion. Equal circumference. Neuro: Awake and alert, GCS 15, oriented to person, place, time, and situation. Vital Signs: 09:26 BP 141 / 84; Pulse 107; Resp 19; Temp 97.4; Pulse Ox 100% ; Pain 8/10; rb3 10:00 BP 141 / 90; Pulse 96; Resp 16; Pulse Ox 100% ; bp 11:00 BP 132 / 88; Pulse 86; Resp 16; Pulse Ox 100% ; bp MDM: 09:26 Patient medically screened. rn 11:27 Differential diagnosis: bowel obstruction, gastritis, gastroesophageal reflux disease, rn non-specific abd pain, pancreatitis, constipation. Data reviewed: vital signs, nurses notes, lab test result(s), radiologic studies, CT scan, and as a result, I will discharge patient. Counseling: I had a detailed discussion with the patient and/or guardian regarding: the historical points, exam findings, and any diagnostic results supporting the discharge/admit diagnosis, lab results, radiology results, the need for outpatient follow up, to return to the emergency department if symptoms worsen or persist or if there are any questions or concerns that arise at home. Response to treatment: the patient's symptoms have mildly improved after treatment, and as a result, I will discharge patient. Special discussion: Based on the patient's Hx, exam, and Dx evaluation, there is no indication for emergent surgery or inpatient Tx. It is understood by the patient/guardian that if the Sx's persist or worsen they need to return immediately for re-evaluation. I discussed with the patient/guardian in detail that at this point there is no indication for admission to the hospital. It is understood, however, that if the symptoms persist or worsen the patient needs to return immediately for re-evaluation. ED course: NO acute findings to suggest pancreatitis, ct shows constipation without bowel obstruction, will dc home with instructions to try laxatives, will try that first and no pain prescription that might worsen constipation and maybe progress to impaction.. 06/28 09:38 Order name: Basic Metabolic Panel; Complete Time: 10:43 rn 06/28 09:38 Order name: CBC with Diff; Complete Time: : rn 06/28 09:38 Order name: Hepatic Function; Complete Time: : rn 06/28 09:38 Order name: Lipase; Complete Time: 10: rn 06/28 09:38 Order name: CT Abd/Pelvis - IV Contrast Only; Complete Time: 11:24 rn 06/28 09:38 Order name: IV Saline Lock; Complete Time: 10:03 rn 06/28 09:38 Order name: Labs collected and sent; Complete Time: 10:03 rn Administered Medications: 10:00 Drug: NS 0.9% 1000 ml Route: IV; Rate: 1000 ml; Site: left forearm; bp 11:41 Follow up: IV Status: Completed infusion; IV Intake: 1000ml bp 10:00 Drug: morphine 4 mg Route: IVP; Site: left forearm; bp 11:41 Follow up: Response: Pain is decreased bp 10:00 Drug: Zofran (Ondansetron) 4 mg Route: IVP; Site: left forearm; bp 11:42 Follow up: Response: Nausea is decreased bp Disposition: 06/28/20 11:30 Discharged to Home. Impression: Unspecified abdominal pain, Constipation, unspecified. - Condition is Stable. - Discharge Instructions: Abdominal Pain, Adult, Constipation, Adult. - Medication Reconciliation Form, Thank You Letter, Antibiotic Education, Prescription Opioid Use form. - Follow up: Private Physician; When: As needed; Reason: Recheck today's complaints, Re-evaluation by your physician. - Problem is new. - Symptoms have improved. Signatures: Dispatcher [employer] EDMS Haile Ruiz MD MD rn Calderon, Audri RN RN aa5 Narciso Higuera RN RN bp Johana Arenas, RN RN rb3 Corrections: (The following items were deleted from the chart) 11:41 11:30 06/28/2020 11:30 Discharged to Home. Impression: Unspecified abdominal pain; bp Constipation, unspecified. Condition is Stable. Forms are Medication Reconciliation Form, Thank You Letter, Antibiotic Education, Prescription Opioid Use. Follow up: Private Physician; When: As needed; Reason: Recheck today's complaints, Re-evaluation by your physician. Problem is new. Symptoms have improved. rn
--- NOTE | 2020-06-28 11:31 | ER ---
Nurse's Notes [facility] Name: Jabier King Age: 64 yrs Sex: Male : 1955 Arrival Date: 06/28/2020 Time: : Bed 5 Private MD: Diagnosis: Unspecified abdominal pain;Constipation, unspecified Presentation: 06/28 09:26 Initial Sepsis Screen: Does the patient meet any 2 criteria? No. Patient's initial rb3 sepsis screen is negative. Does the patient have a suspected source of infection?. Risk Assessment: Do you want to hurt yourself or someone else? Patient reports no desire to harm self or others. Onset of symptoms is unknown. 09: Chief complaint: Patient states: "I was seen here about a week ago for pancreatitis and aa5 it's not getting better". pt c/o upper abd pain. Reports intermittent nausea, vomited once 2 days ago, denies diarrhea. 09: Coronavirus screen: Client denies travel out of the [place] in the last 14 days. At this aa5 time, the client does not indicate any symptoms associated with coronavirus-19. Onset of symptoms was June 2020. 09: Acuity: TARA 3 aa5 09:26 Method Of Arrival: Ambulatory aa5 09:26 Ebola Screen: Patient negative for fever greater than or equal to 101.5 degrees aa5 Fahrenheit, and additional compatible Ebola Virus Disease symptoms. Triage Assessment: 09: General: Appears in no apparent distress. comfortable, Behavior is calm, cooperative, rb3 Denies fever. Pain: Complains of pain in epigastric area Pain currently is 8 out of 10 on a pain scale. Pain began Off and on for the past several weeks, pt. reports being here last week for the same complaint. Neuro: Level of Consciousness is awake, alert, obeys commands, Oriented to person, place, time, situation. Cardiovascular: Capillary refill < 3 seconds. Respiratory: Airway is patent Respiratory effort is even, unlabored, Respiratory pattern is regular, symmetrical. GI: Patient currently denies diarrhea. : No signs and/or symptoms were reported regarding the genitourinary system. Musculoskeletal: Range of motion: intact in all extremities, uses a cane to ambulate. Historical: - Allergies: : Bactrim; aa5 09:26 Bactrim; rb3 - Home Meds: 09:26 amlodipine 10 mg tab 1 tab once daily [Active]; aspirin 325 mg Oral tab 1 tab once rb3 daily [Active]; atorvastatin 40 mg Oral tab 1 tab once daily [Active]; Atrovent Inhl [Active]; carvedilol 25 mg Oral tab 1 tab 2 times per day [Active]; fluoxetine 20 mg Oral cap 1 cap once daily [Active]; glipizide 10 mg Oral tab 1 tab once daily [Active]; lisinopril 40 mg Oral tab 1 tab once daily [Active]; metformin 1,000 mg Oral tab 1 tab 2 times per day [Active]; minoxidil 2.5 mg Oral tab 3 tabs 2 times per day [Active]; terazosin 5 mg Oral cap 1 cap once daily [Active]; trazodone 50 mg Oral tab 1 tab [Active]; triamterene-hydrochlorothiazid 37.5-25 mg Oral cap 1 cap once daily [Active]; - PMHx: 09: CVA; Diabetes - NIDDM; High Cholesterol; Hypertension; aa5 09:26 CVA; Diabetes - NIDDM; High Cholesterol; Hypertension; rb3 - PSHx: 09: Hernia repair; cyst removal; aa5 09:26 Hernia repair; rb3 - Immunization history:: Adult Immunizations unknown. - Social history:: Smoking status: Patient denies any tobacco usage or history of. - Family history:: not pertinent. - Hospitalizations: : No recent hospitalization is reported. Screenin:26 Abuse screen: Denies threats or abuse. Nutritional screening: No deficits noted. rb3 Tuberculosis screening: No symptoms or risk factors identified. Fall Risk No fall in past 12 months (0 pts). Secondary diagnosis (15 points) impaired mobility, IV access (20 points). Ambulatory Aid- Crutches/Cane/Walker (15 pts). Gait- Impaired (20 pts.). Mental Status- Oriented to own ability (0 pts). Total Overton Fall Scale indicates High Risk Score (45 or more points). Fall prevention measures have been instituted. Side Rails Up X 2 Placed Close to Nursing Station 1:1 Attendant Assigned Frequent Obs/Assessments Occuring As available patient and family educated on Fall Prevention Program and Strategies. Assessment: 09:30 General: SEE TRIAGE NOTE. bp 11:08 Reassessment: Patient appears in no apparent distress at this time. No changes from bp previously documented assessment. Patient and/or family updated on plan of care and expected duration. Pain level reassessed. Patient is alert, oriented x 3, equal unlabored respirations, skin warm/dry/pink. PT RETURNED FROM CT. 11:40 Reassessment: PT D/C HOME AMBULATORY, DX WITH CONSTIPATION. bp Vital Signs: 09:26 BP 141 / 84; Pulse 107; Resp 19; Temp 97.4; Pulse Ox 100% ; Pain 8/10; rb3 10:00 BP 141 / 90; Pulse 96; Resp 16; Pulse Ox 100% ; bp 11:00 BP 132 / 88; Pulse 86; Resp 16; Pulse Ox 100% ; bp ED Course: : Patient arrived in ED. as 09: Haile Ruiz MD is Attending Physician. rn 09: Arm band placed on. aa5 09: Patient has correct armband on for positive identification. Bed in low position. Call rb3 light in reach. Side rails up X 1. Pulse ox on. NIBP on. 09:27 Narciso Higuera, CIARA is Primary Nurse. bp 09:40 Triage completed. rb3 10:00 Inserted saline lock: 20 gauge in left forearm, using aseptic technique. Blood bp collected. 11:02 CT Abd/Pelvis - IV Contrast Only In Process Unspecified. EDMS 11:40 No provider procedures requiring assistance completed. IV discontinued, intact, bp bleeding controlled, No redness/swelling at site. Pressure dressing applied. Administered Medications: 10:00 Drug: NS 0.9% 1000 ml Route: IV; Rate: 1000 ml; Site: left forearm; bp 11:41 Follow up: IV Status: Completed infusion; IV Intake: 1000ml bp 10:00 Drug: morphine 4 mg Route: IVP; Site: left forearm; bp 11:41 Follow up: Response: Pain is decreased bp 10:00 Drug: Zofran (Ondansetron) 4 mg Route: IVP; Site: left forearm; bp 11:42 Follow up: Response: Nausea is decreased bp Intake: 11:41 IV: 1000ml; Total: 1000ml. bp Outcome: 11:30 Discharge ordered by . rn 11:40 Discharged to home ambulatory. bp 11:40 Condition: stable 11:40 Discharge instructions given to patient, Instructed on discharge instructions, follow up and referral plans. Demonstrated understanding of instructions, follow-up care. 11:41 Patient left the ED. bp Signatures: Dispatcher [employer] Brooke Field Roman, MD MD rn Cherry Gan, RN RN aa5 Narciso Higuera RN RN Johana Reddy RN RN rb3 Corrections: (The following items were deleted from the chart) 09:40 09:26 Acuity: TARA 3 rb3 aa5
[2020-06-28 11:48] VITALS: TEMP 97.4; O2SAT 100
[2020-06-28 11:52] VITALS: BP 132/88
== END 2020-06-28 11:41 | disposition home or self-care (01) ==
LOC: ER 09:23
DX: K59.00 Constipation, unspecified (principal); I10 Essential (primary) hypertension; E11.9 Type 2 diabetes mellitus without complications; Z79.82 Long term (current) use of aspirin; Z86.73 Personal history of transient ischemic attack (TIA), and cerebral infarction without residual deficits
CPT/HCPCS: 96361; 85025; 80048; 36415; 80076; 83690; 74177; 96375; 96374; 99284; Q9967; J7030; J2405

== ENCOUNTER 2020-11-11 13:12 | Emergency (ER) | payer OTHER ==
--- OUTSIDE RECORDS SUMMARY | 2020-11-11 13:15 | XMS REPORT | Continuity of Care Document ---
:1955 Author Organization [facility] t Address [address] [place] [address] Care Team Providers Name Role Phone Lynnette MUÑIZ Attending Clinician Problems This patient has no known problems. Allergies, Adverse Reactions, Alerts This patient has no known allergies or adverse reactions. Medications This patient has no known medications. Procedures This patient has no known procedures. Encounters Start End Encounter Admission Attending Care Care Encounter Source Date/Time Date/Time Type Type Clinicians Facility Department ID 2020-10-03 2020-10-03 Office ASYA Church [id number] 10:38:45 12:31:25 Visit Zak Ellis [id number] Richy [id number] Bob [phone] [facility] 044 Building Results This patient has no known results.
--- NOTE | 2020-11-11 14:19 | EDPHYS ---
Physician Documentation [facility] Name: Jabier King Age: 65 yrs Sex: Male : 1955 Arrival Date: 11/11/2020 Time: 13:17 Bed 5 Private MD: ED Physician Yasemin Lopez HPI: 11/11 14:16 This 65 yrs old Black Male presents to ER via Ambulatory with complaints of Ear Pain. pm1 14:16 The patient presents with pain. The complaints affect the left ear. Onset: The pm1 symptoms/episode began/occurred 2 day(s) ago. Modifying factors: The symptoms are alleviated by nothing, the symptoms are aggravated by the wind. Associated signs and symptoms: Pertinent negatives: cough, fever, sore throat. Severity of symptoms: in the emergency department the symptoms are worse. The patient has not experienced similar symptoms in the past. Historical: - Allergies: 13:44 Bactrim; ll1 - PMHx: 13:44 CVA; Diabetes - NIDDM; Hypertension; High Cholesterol; ll1 - PSHx: 13:44 cyst removal; Hernia repair; ll1 - Immunization history:: Flu vaccine is not up to date. - Social history:: Smoking status: Patient reports the use of cigarette tobacco products, smokes one-half pack cigarettes per day. ROS: 14:16 Constitutional: Negative for fever, chills, and weight loss. pm1 14:16 Cardiovascular: Negative for chest pain, palpitations, and edema, Respiratory: Negative for shortness of breath, cough, wheezing, and pleuritic chest pain. 14:16 Skin: Negative for injury, rash, and discoloration, Neuro: Negative for headache, weakness, numbness, tingling, and seizure. 14:16 ENT: Positive for ear pain, Negative for drainage from ear(s), sore throat, dental pain. Exam: 14:16 Constitutional: This is a well developed, well nourished patient who is awake, alert, pm1 and in no acute distress. Head/Face: Normocephalic, atraumatic. 14:16 Skin: Warm, dry with normal turgor. Normal color with no rashes, no lesions, and no evidence of cellulitis. MS/ Extremity: Pulses equal, no cyanosis. Neurovascular intact. Full, normal range of motion. 14:16 ENT: External ear(s): are unremarkable, Ear canal(s): are normal, TM's: bulging, on the left, erythema, that is moderate, on the left, rupture, is not appreciated, Examination of the other ear shows no obvious abnormality. 14:16 Cardiovascular: Exam negative for acute changes, Rate: normal, Rhythm: regular, Pulses: no pulse deficits are appreciated. 14:16 Respiratory: Exam negative for acute changes, respiratory distress, shortness of breath. 14:16 Neuro: Exam negative for acute changes, Orientation: is normal, Mentation: is normal, Motor: is normal, moves all fours, Gait: is steady, at a normal pace, without difficulty. Vital Signs: 13:45 BP 154 / 96; Pulse 89; Resp 17; Temp 98.3; Pulse Ox 98% ; Weight 93.44 kg; Height 5 ft. ll1 5 in. (165.10 cm); Pain 8/10; 13:45 Body Mass Index 34.28 (93.44 kg, 165.10 cm) ll1 MDM: 14:15 Patient medically screened. pm1 14:16 Data reviewed: vital signs. Data interpreted: Pulse oximetry: on room air is 98 %. pm1 Interpretation: normal. Counseling: I had a detailed discussion with the patient and/or guardian regarding: the historical points, exam findings, and any diagnostic results supporting the discharge/admit diagnosis, the need for outpatient follow up, an ENT specialist, a family practitioner, to return to the emergency department if symptoms worsen or persist or if there are any questions or concerns that arise at home. Administered Medications: 14:25 Drug: Rocephin (cefTRIAXone) 1 grams Route: IM; Site: right deltoid; tw2 14:33 Follow up: Response: No adverse reaction tw2 14:28 Drug: [place] (HYDROcodone-acetaminophen) 5 mg-325 mg 1 tabs {Note: rass 0.} Route: PO; tw2 14:33 Follow up: Response: No adverse reaction; Pain is unchanged, physician notified; RASS: tw2 Alert and Calm (0); RASS: Alert and Calm (0), "im just ready to go, its ok i had them both before" Disposition: 18:49 Co-signature as Attending Physician, Yasemin Lopez MD. ma2 Disposition: 11/11/20 14:18 Discharged to Home. Impression: Otitis media, unspecified, left ear. - Condition is Stable. - Discharge Instructions: Otitis Media, Adult. - Prescriptions for Augmentin 875- 125 mg Oral Tablet - take 1 tablet by ORAL route every 12 hours for 10 days; 20 tablet. Tylenol- Codeine #3 300-30 mg Oral Tablet - take 2 tablets by ORAL route every 4-6 hours As needed; 20 tablet. - Medication Reconciliation Form, Thank You Letter, Antibiotic Education, Prescription Opioid Use form. - Follow up: Emergency Department; When: As needed; Reason: Worsening of condition. Follow up: Private Physician; When: 2 - 3 days; Reason: Recheck today's complaints, Continuance of care, Re-evaluation by your physician. - Problem is new. - Symptoms have improved. Signatures: Dariel Parker, STENCIL MAKER STENCIL MAKER pm1 Penny Madrigal RN RN tw2 Yasemin Lopez MD MD ma2 Jocy Levy RN RN ll1 Corrections: (The following items were deleted from the chart) 14:33 14:18 11/11/2020 14:18 Discharged to Home. Impression: Otitis media, unspecified, left tw2 ear. Condition is Stable. Forms are Medication Reconciliation Form, Thank You Letter, Antibiotic Education, Prescription Opioid Use. Follow up: Emergency Department; When: As needed; Reason: Worsening of condition. Follow up: Private Physician; When: 2 - 3 days; Reason: Recheck today's complaints, Continuance of care, Re-evaluation by your physician. Problem is new. Symptoms have improved. pm1
--- NOTE | 2020-11-11 14:19 | ER ---
Nurse's Notes [facility] Name: Jabier King Age: 65 yrs Sex: Male : 1955 Arrival Date: 11/11/2020 Time: 13:17 Bed 5 Private MD: Diagnosis: Otitis media, unspecified, left ear Presentation: 11/11 13:45 Chief complaint: Patient states: L ear pain for 3 days. No fever or cough. Coronavirus ll1 screen: Client denies travel out of the [place] in the last 14 days. At this time, the client does not indicate any symptoms associated with coronavirus-19. Ebola Screen: Patient denies travel to an Ebola-affected area in the 21 days before illness onset. Initial Sepsis Screen: Does the patient meet any 2 criteria? No. Patient's initial sepsis screen is negative. Does the patient have a suspected source of infection? Yes: Other: ear infection. Risk Assessment: Do you want to hurt yourself or someone else? Patient reports no desire to harm self or others. Onset of symptoms was November 09, 2020. 13:45 Method Of Arrival: Ambulatory ll1 13:45 Acuity: TARA 4 ll1 Historical: - Allergies: 13:44 Bactrim; ll1 - PMHx: 13:44 CVA; Diabetes - NIDDM; Hypertension; High Cholesterol; ll1 - PSHx: 13:44 cyst removal; Hernia repair; ll1 - Immunization history:: Flu vaccine is not up to date. - Social history:: Smoking status: Patient reports the use of cigarette tobacco products, smokes one-half pack cigarettes per day. Screenin:06 Abuse screen: Denies threats or abuse. Nutritional screening: No deficits noted. tw2 Tuberculosis screening: No symptoms or risk factors identified. Fall Risk None identified. Assessment: 14:12 General: Appears in no apparent distress. Behavior is calm, cooperative, appropriate tw2 for age. Pain: Complains of pain in left ear. Neuro: Level of Consciousness is awake, alert, obeys commands, Oriented to person, place, time, situation. Cardiovascular: Patient's skin is warm and dry. Respiratory: Airway is patent Respiratory effort is even, unlabored, Respiratory pattern is regular, symmetrical. GI: No signs and/or symptoms were reported involving the gastrointestinal system. : No signs and/or symptoms were reported regarding the genitourinary system. EENT: Reports pain in left ear since 3 days now. Musculoskeletal: Range of motion: intact in all extremities. 14:32 Reassessment: Patient appears in no apparent distress at this time. No changes from tw2 previously documented assessment. Patient and/or family updated on plan of care and expected duration. Pain level reassessed. Patient is alert, oriented x 3, equal unlabored respirations, skin warm/dry/pink. Vital Signs: 13:45 BP 154 / 96; Pulse 89; Resp 17; Temp 98.3; Pulse Ox 98% ; Weight 93.44 kg; Height 5 ft. ll1 5 in. (165.10 cm); Pain 8/10; 13:45 Body Mass Index 34.28 (93.44 kg, 165.10 cm) ll1 ED Course: 13:17 Patient arrived in ED. mr 13:45 Arm band placed on. ll1 13:46 Triage completed. ll1 14:06 Dariel Praker NP is PHCP. pm1 14:06 Yasemin Lopez MD is Attending Physician. pm1 14:10 Bed in low position. Call light in reach. tw2 14:12 Penny Madrigal, CIARA is Primary Nurse. tw2 14:32 No provider procedures requiring assistance completed. Patient did not have IV access tw2 during this emergency room visit. Administered Medications: 14:25 Drug: Rocephin (cefTRIAXone) 1 grams Route: IM; Site: right deltoid; tw2 14:33 Follow up: Response: No adverse reaction tw2 14:28 Drug: [place] (HYDROcodone-acetaminophen) 5 mg-325 mg 1 tabs {Note: rass 0.} Route: PO; tw2 14:33 Follow up: Response: No adverse reaction; Pain is unchanged, physician notified; RASS: tw2 Alert and Calm (0); RASS: Alert and Calm (0), "im just ready to go, its ok i had them both before" Outcome: 14:18 Discharge ordered by . pm1 14:32 Discharged to home ambulatory. tw2 14:32 Condition: stable 14:32 Discharge instructions given to patient, Instructed on discharge instructions, follow up and referral plans. no drinking with medication, no driving heavy equipment, medication usage, Demonstrated understanding of instructions, follow-up care, medications, Prescriptions given X 2. 14:33 Patient left the ED. tw2 Signatures: Cydney Melendez Patrick, SAMI OUTBOARD MOTOR INSPECTOR pm1 Penny Madrigal RN RN tw2 Jocy Levy RN RN ll1
[2020-11-11] MEDS ORDERED: CEFTRIAXONE 1000 MG/VIAL ONE (14:38)
[2020-11-11] MEDS ORDERED: HYDROCODONE/APAP 5/325 MG TAB ONE (14:38)
[2020-11-11] MEDS ORDERED: WATER FOR INJ,STERILE 10 ML ONE (14:38)
[2020-11-11 14:40] VITALS: BP 154/96; TEMP 98.3; O2SAT 98
== END 2020-11-11 14:33 | disposition home or self-care (01) ==
LOC: ER 13:12
DX: H66.92 Otitis media, unspecified, left ear (principal); I10 Essential (primary) hypertension; F17.210 Nicotine dependence, cigarettes, uncomplicated; Z88.1 Allergy status to other antibiotic agents
CPT/HCPCS: 96372; 99283

== ENCOUNTER 2020-12-18 11:22 | Emergency (ER) | payer OTHER ==
--- OUTSIDE RECORDS SUMMARY | 2020-12-18 11:24 | XMS REPORT | Continuity of Care Document ---
:1955 Author Organization [facility] t Address [address] [place] [address] [address] [place] [address] Care Team Providers Name Role Phone Lynnette [...] 2020-10-03 2020-10-03 Office ASYA Church [id number] 10:38:45 12:31:25 Visit Zak Ellis [id number] Richy [id number] [facility] [phone] [facility] 044 Building Results This patient has no known results.
[2020-12-18] MEDS ORDERED: NA CHLORIDE 0.9% 1,000 ML ONE (12:14)
[2020-12-18] MEDS ORDERED: ONDANSETRON 4 MG/2 ML VIAL ONE (12:14)
[2020-12-18] MEDS ORDERED: MORPHINE 4 MG/ML SYR ONE ×2 (12:14→16:35)
--- NOTE | 2020-12-18 12:32 | RAD REPORT ---
EXAM DESCRIPTION: CTAbdomen Pelvis W Contrast - 12/18/2020 12:12 pm CLINICAL HISTORY: Abdominal pain. abdominal pain COMPARISON: 06/28/2020 TECHNIQUE: Biphasic CT imaging of the abdomen and pelvis was performed with 100 ml non-ionic IV cont rast. All CT scans are performed using dose optimization technique as appropriate and may include automated exposure control or mA/KV adjustment according to patient size. FINDINGS: The lung bases are clear. Mild nodular contour the liver parenchyma is seen most compatible with liver cirrhosis. Spleen, pancr eas adrenal glands kidneys are within normal limits. Arterial calcifications are seen involving both renal arteries No bowel obstruction, free air, intra-abdominal free fluid or abscess. Moderate size fat umbilical he rnia is seen to the left of midline measuring 4 cm. The appendix is normal. No evidence of significa nt lymphadenopathy. Trace fluid is seen pelvis. There is prominent fecal retention throughout the col on. Moderate lumbosacral degenerative changes. IMPRESSION: Mild liver cirrhosis pattern. Moderate fecal retention throughout the colon. Fat containing 4 cm umbilical hernia to the left of midline.
[2020-12-18 14:36] LABS: Absolute Lymphocytes (CBC) 1.8 K/uL (0.7-4.9); Basophils % 0.7 % (0-1.3); Hematocrit 45.4 % (39.6-49.0); Lymphocytes % 23.6 % (15.3-44.8); RBC Red Blood Cell Count 5.08 M/uL (4.33-5.43)
[2020-12-18 14:49] LABS: ALT/SGPT 24 U/L (12-78); AST/SGOT 23 U/L (15-37); Albumin 3.7 g/dL (3.4-5.0); Alkaline Phosphatase 125 U/L (45-117); BUN Blood Urea Nitrogen 14 mg/dL (7-18); Bicarbonate 27 mmol/L (21-32); Bilirubin Direct < 0.1 mg/dL (0-0.2); Bilirubin Total 0.5 mg/dL (0.2-1.0); Glucose Level 90 mg/dL (74-106); Lipase 92 U/L (73-393); Potassium 3.7 mmol/L (3.5-5.1); Protein, Total 8.3 g/dL (6.4-8.2); Sodium Level 140 mmol/L (136-145)
--- NOTE | 2020-12-18 16:08 | EDPHYS ---
Physician Documentation [facility] Name: Jabier King Age: 65 yrs Sex: Male : 1955 Arrival Date: 12/18/2020 Time: 11:25 Bed 18 Private MD: ED Physician Stef Bagley HPI: 12/18 11:40 This 65 yrs old Black Male presents to ER via Unassigned with complaints of Abdominal jmm Pain. 11:40 The patient presents with abdominal pain. Onset: The symptoms/episode began/occurred jmm gradually, 3 day(s) ago. The symptoms do not radiate. Associated signs and symptoms: Pertinent positives: nausea. The symptoms are described as achy. Modifying factors: The symptoms are alleviated by nothing, the symptoms are aggravated by nothing. The patient has experienced similar episodes in the past, chronically. Historical: - Allergies: 12:18 Bactrim; tr6 - Immunization history:: Adult Immunizations up to date. - Social history:: Smoking status: Patient reports the use of cigarette tobacco products, unknown amount Patient uses hx of alcohol and drug abuse. ROS: 11:40 Constitutional: Negative for fever, chills, and weight loss, Cardiovascular: Negative jmm for chest pain, palpitations, and edema, Respiratory: Negative for shortness of breath, cough, wheezing, and pleuritic chest pain. 11:40 Abdomen/GI: Positive for abdominal pain. 11:40 All other systems are negative. Exam: 11:40 Head/Face: atraumatic. Eyes: EOMI, no conjunctival erythema appreciated ENT: Moist jmm Mucus Membranes Neck: Trachea midline, Supple Chest/axilla: Normal chest wall appearance and motion. Cardiovascular: Regular rate and rhythm. No edema appreciated Respiratory: Normal respirations, no respiratory distress appreciated 11:40 Back: Normal ROM Skin: General appearance color normal MS/ Extremity: Moves all extremities, no obvious deformities appreciated, no edema noted to the lower extremities Neuro: Awake and alert, normal gait Psych: Behavior is normal, Mood is normal, Patient is cooperative and pleasant 11:40 Constitutional: The patient appears alert, awake, uncomfortable. 11:40 Abdomen/GI: Inspection: abdomen appears normal, Bowel sounds: normal, Palpation: soft, mild abdominal tenderness, in all quadrants. Vital Signs: 16:26 BP 171 / 118; Pulse 87; Resp 18; Pulse Ox 98% ; tr6 16:26 pt takes his BP meds at night tr6 MDM: 11:39 Patient medically screened. [facility] 16:05 Data reviewed: vital signs, nurses notes. Counseling: I had a detailed discussion with merlin the patient and/or guardian regarding: the historical points, exam findings, and any diagnostic results supporting the discharge/admit diagnosis, lab results, radiology results, the need for outpatient follow up, to return to the emergency department if symptoms worsen or persist or if there are any questions or concerns that arise at home. 12/18 11:40 Order name: Basic Metabolic Panel [facility] 12/18 11:40 Order name: CBC with Diff [facility] 12/18 11:40 Order name: Hepatic Function [facility] 12/18 11:40 Order name: Lipase [facility] 12/18 14:37 Order name: CREATININE WHOLE BLOOD; Complete Time: 15:39 [facility] 12/18 14:50 Order name: Basic Metabolic Panel; Complete Time: 15:39 [facility] 12/18 11:40 Order name: CT Abd/Pelvis - IV Contrast Only [facility] 12/18 12:33 Order name: CT; Complete Time: 12:34 [facility] 12/18 14:50 Order name: Liver (Hepatic) Function; Complete Time: 15:39 [facility] 12/18 14:50 Order name: Lipase; Complete Time: 15:39 [facility] 12/18 14:54 Order name: CBC with Automated Diff; Complete Time: 15:39 [facility] 12/18 11:40 Order name: IV Saline Lock; Complete Time: 11:59 [facility] 12/18 11:40 Order name: Labs collected and sent; Complete Time: 11:59 [facility] 12/18 12:00 Order name: Labs - recollect needed; Complete Time: 12:08 mt Administered Medications: 11:58 Drug: morphine 4 mg Route: IVP; Site: right forearm; tr6 12:13 Follow up: Response: No adverse reaction; Pain is decreased tr6 11:58 Drug: Zofran (Ondansetron) 4 mg Route: IVP; Site: right forearm; tr6 12:13 Follow up: Response: Nausea is decreased tr6 11:59 Drug: NS 0.9% 1000 ml Route: IV; Rate: 1 bolus; Site: right forearm; tr6 12:13 Follow up: Response: No adverse reaction; IV Status: Completed infusion; IV Intake: tr6 1000ml 16:17 Drug: morphine 4 mg Route: IVP; Site: left forearm; tr6 16:28 Follow up: Response: No adverse reaction tr6 Disposition: 12/19 07:27 Co-signature as Attending Physician, Stef Bagley MD I agree with the assessment and brianna plan of care. Disposition: 12/18/20 16:07 Discharged to Home. Impression: Generalized abdominal pain. - Condition is Stable. - Discharge Instructions: Abdominal Pain, Adult. - Prescriptions for Pepcid 20 mg Oral Tablet - take 1 tablet by ORAL route once daily; 20 tablet. Ultracet 37.5- 325 mg Oral Tablet - take 1 tablet by ORAL route every 6 hours - for up to 5 days; do not exceed 8 tablets per day.; 20 tablet. - Medication Reconciliation Form, Thank You Letter, Antibiotic Education, Prescription Opioid Use form. - Follow up: Farhad Cortes MD; When: 2 - 3 days; Reason: Recheck today's complaints, Continuance of care, Re-evaluation by your physician. Signatures: Dispatcher [employer] Stef Addison MD MD cha Mickail, Joel, PA PA Toyin Chaparro mt, Tiffany, RN RN tr6 Corrections: (The following items were deleted from the chart) 12/18 16:58 16:07 12/18/2020 16:07 Discharged to Home. Impression: Generalized abdominal pain. tr6 Condition is Stable. Forms are Medication Reconciliation Form, Thank You Letter, Antibiotic Education, Prescription Opioid Use. Follow up: Farhad Cortes; When: 2 - 3 days; Reason: Recheck today's complaints, Continuance of care, Re-evaluation by your physician. merlin
--- NOTE | 2020-12-18 16:08 | ER ---
Nurse's Notes [facility] Name: Jabier King Age: 65 yrs Sex: Male : 1955 Arrival Date: 12/18/2020 Time: 11:25 Bed 18 Private MD: Diagnosis: Generalized abdominal pain Presentation: 12/18 12:14 Chief complaint: Patient states: pt states he "has pancreatitis bc his doctor told him tr6 so." pt reports that he has chronic pancreatitis. here for lower abdominal pain. Coronavirus screen: Client denies travel out of the [place] in the last 14 days. Ebola Screen: Patient negative for fever greater than or equal to 101.5 degrees Fahrenheit, and additional compatible Ebola Virus Disease symptoms Patient denies exposure to infectious person. Patient denies travel to an Ebola-affected area in the 21 days before illness onset. Initial Sepsis Screen: Does the patient meet any 2 criteria? No. Patient's initial sepsis screen is negative. Does the patient have a suspected source of infection? No. Patient's initial sepsis screen is negative. Risk Assessment: Do you want to hurt yourself or someone else? Patient reports no desire to harm self or others. 12:14 Method Of Arrival: Ambulatory tr6 12:14 Acuity: TARA 3 tr6 12:17 Onset of symptoms was December 16, 2020. tr6 Triage Assessment: 12:15 General: Appears in no apparent distress. Behavior is calm, cooperative, appropriate tr6 for age. Pain: Complains of pain in lower abdomen. EENT: No deficits noted. Neuro: No deficits noted. Cardiovascular: No deficits noted. Respiratory: No deficits noted. GI: Abdomen is round distended, Bowel sounds present X 4 quads. Abdomen is tender to palpation lower abdomen tenderness. : No deficits noted. Derm: No deficits noted. Musculoskeletal: No deficits noted. Historical: - Allergies: 12:18 Bactrim; tr6 - Immunization history:: Adult Immunizations up to date. - Social history:: Smoking status: Patient reports the use of cigarette tobacco products, unknown amount Patient uses hx of alcohol and drug abuse. Screenin:16 Abuse screen: Denies threats or abuse. Denies injuries from another. Nutritional tr6 screening: No deficits noted. Tuberculosis screening: No symptoms or risk factors identified. Fall Risk None identified. Assessment: 12:16 Reassessment: see triage assessment. tr6 Vital Signs: 16:26 BP 171 / 118; Pulse 87; Resp 18; Pulse Ox 98% ; tr6 16:26 pt takes his BP meds at night tr6 ED Course: 11:25 Patient arrived in ED. ds1 11:35 [facility]. jmm 11:35 Stef Bagley MD is Attending Physician. jmm 12:10 Inserted saline lock: 20 gauge in left forearm, using aseptic technique. Blood tr6 collected. 12:17 No provider procedures requiring assistance completed. tr6 12:17 Arm band placed on right wrist. EKG completed in triage. Results shown to MD. tr6 12:18 Patient has correct armband on for positive identification. Fall risk band placed. tr6 Placed in gown. Bed in low position. Side rails up X 1. 16:06 Farhad Cortes MD is Referral Physician. jmm 16:27 Triage completed. tr6 16:27 IV discontinued, intact, bleeding controlled, No redness/swelling at site. Pressure tr6 dressing applied. Administered Medications: 11:58 Drug: morphine 4 mg Route: IVP; Site: right forearm; tr6 12:13 Follow up: Response: No adverse reaction; Pain is decreased tr6 11:58 Drug: Zofran (Ondansetron) 4 mg Route: IVP; Site: right forearm; tr6 12:13 Follow up: Response: Nausea is decreased tr6 11:59 Drug: NS 0.9% 1000 ml Route: IV; Rate: 1 bolus; Site: right forearm; tr6 12:13 Follow up: Response: No adverse reaction; IV Status: Completed infusion; IV Intake: tr6 1000ml 16:17 Drug: morphine 4 mg Route: IVP; Site: left forearm; tr6 16:28 Follow up: Response: No adverse reaction tr6 Intake: 12:13 IV: 1000ml; Total: 1000ml. tr6 Outcome: 16:07 Discharge ordered by . jmm 16:27 Discharged to home ambulatory. tr6 16:27 Condition: good 16:27 Discharge instructions given to patient. 16:58 Patient left the ED. tr6 Signatures: Harry Javier PA PA jmm Sanford, Demi ds1 Ramnanan, Laurence, RN RN tr6
[2020-12-18 17:03] VITALS: BP 171/118; O2SAT 98
== END 2020-12-18 16:58 | disposition home or self-care (01) ==
LOC: ER 11:22
DX: R10.84 Generalized abdominal pain (principal); Z72.0 Tobacco use; Z88.1 Allergy status to other antibiotic agents
CPT/HCPCS: 85025; 80048; 36415; 82565; 80076; 83690; 74177; 99283; Q9967; J7030; J2405

== ENCOUNTER 2021-01-03 14:01 | Emergency (ER) | payer OTHER ==
--- OUTSIDE RECORDS SUMMARY | 2021-01-03 14:06 | XMS REPORT | Continuity of Care Document ---
:1955 Author Organization [facility] t Address [address] [place] [place] [address] Care Team Providers Name Role Phone Lynnette MUÑIZ Attending Clinician Problems This patient has no known problems. Allergies, Adverse Reactions, Alerts This patient has no known allergies or adverse reactions. Medications This patient has no known medications. Procedures This patient has no known procedures. Encounters Start End Encounter Admission Attending Care Care Encounter Source Date/Time Date/Time Type Type Clinicians Facility Department ID 2021-01-01 2021-01-01 [facility] [id number] 15:50:00 23:59:00 Encounter Zak Ellis [id number] [place] [id number] [place] [id number] 2021-01-01 2021-01-01 Office [facility] [id number] 14:12:54 15:07:47 Visit Zak Ellis [id number] [place] [id number] [place] [id number] [place] 044 Building Results This patient has no known results.
[2021-01-03 16:18] LABS: Absolute Lymphocytes (CBC) 2.8 K/uL (0.7-4.9); Basophils % 0.6 % (0-1.3); Hematocrit 45.9 % (39.6-49.0); Lymphocytes % 29.1 % (15.3-44.8); MPV 7.4 fL (7.6-11.3); RBC Red Blood Cell Count 5.15 M/uL (4.33-5.43)
[2021-01-03] MEDS ORDERED: ONDANSETRON 4 MG/2 ML VIAL ONE (16:34)
[2021-01-03] MEDS ORDERED: MORPHINE 4 MG/ML SYR ONE (16:34)
[2021-01-03 16:56] LABS: Albumin 4.1 g/dL (3.4-5.0); Bilirubin Direct 0.1 mg/dL (0-0.2); Bilirubin Total 0.4 mg/dL (0.2-1.0); Potassium 3.5 mmol/L (3.5-5.1); Protein, Total 8.9 g/dL (6.4-8.2)
--- NOTE | 2021-01-03 16:56 | RAD REPORT ---
EXAM DESCRIPTION: CTAbdomen Pelvis W Contrast - 01/03/2021 4:37 pm CLINICAL HISTORY: Abdominal pain. Low abdomen;Abd pain COMPARISON: Abdomen Pelvis W Contrast dated 12/18/2020; Abdomen Pelvis W Contrast dated 06/28/2020 ; Abdomen Pelvis W Contrast dated 06/03/2020 TECHNIQUE: Biphasic CT imaging of the abdomen and pelvis was performed with 100 ml non-ionic IV cont rast. All CT scans are performed using dose optimization technique as appropriate and may include automated exposure control or mA/KV adjustment according to patient size. FINDINGS: The lung bases are clear. There is a mild nodular contour to the liver parenchyma noted suggesting mild cirrhosis. The spleen, pancreas, adrenal glands and kidneys are within normal limits. No bowel obstruction, free air, free fluid or abscess. Significant retention of stool is seen through out the colon. The appendix is normal. Small fat containing ventral hernia is present. No evidence of significant lymphadenopathy. Advanced lumbosacral degenerative changes. IMPRESSION: Mild liver cirrhosis. Advanced fecal retention throughout the colon.
--- NOTE | 2021-01-03 17:35 | ER ---
Nurse's Notes [facility] Name: Jabier King Age: 65 yrs Sex: Male : 1955 Arrival Date: 01/03/2021 Time: 14:05 Bed 4 Private MD: Diagnosis: Abdominal and pelvic pain;Constipation Presentation: 01/03 14:11 Chief complaint: Patient states: diffuse abd pain x 3 days. Denies n/v/d/constipation. sv Reports he used to drink a fifth of liquor a day and quit a month ago. Coronavirus screen: Client denies travel out of the [place] in the last 14 days. At this time, the client does not indicate any symptoms associated with coronavirus-19. Ebola Screen: No symptoms or risks identified at this time. Initial Sepsis Screen: Does the patient meet any 2 criteria? No. Patient's initial sepsis screen is negative. Does the patient have a suspected source of infection? No. Patient's initial sepsis screen is negative. Risk Assessment: Do you want to hurt yourself or someone else? Patient reports no desire to harm self or others. Onset of symptoms was December 31, 2020. 14:11 Method Of Arrival: Ambulatory sv 14:11 Acuity: TARA 2 sv Triage Assessment: 14:14 General: Appears in no apparent distress. uncomfortable, Behavior is calm, cooperative, sv appropriate for age. Pain: Complains of pain in abdomen. Neuro: Level of Consciousness is awake, alert, obeys commands, Oriented to person, place, time, situation, Gait is steady. Respiratory: Respiratory effort is even, unlabored. Historical: - Allergies: 14:14 Bactrim; sv - PMHx: 14:14 Diabetes - NIDDM; High Cholesterol; CVA; Hypertension; sv - Immunization history:: Adult Immunizations up to date, Client reports receiving the 2nd dose of the Covid vaccine, Client reports receiving the 1st dose of the Covid vaccine. - Social history:: Smoking status: Patient reports the use of cigarette tobacco products, denies chronic smoking, but will smoke occasionally. Screenin:38 Abuse screen: Denies threats or abuse. Nutritional screening: No deficits noted. em Tuberculosis screening: No symptoms or risk factors identified. Fall Risk None identified. Assessment: 15:52 Reassessment: MD Mae at bedside. tr6 16:00 General: Appears in no apparent distress. comfortable, Behavior is calm, cooperative, em appropriate for age. Pain: Complains of pain in right lower quadrant and left lower quadrant. Neuro: Level of Consciousness is awake, alert, obeys commands, Oriented to person, place, time, situation, Appropriate for age. Cardiovascular: Capillary refill < 3 seconds Patient's skin is warm and dry. Respiratory: Airway is patent Respiratory effort is even, unlabored, Respiratory pattern is regular, symmetrical. GI: Abdomen is round non-distended, Bowel sounds present X 4 quads. Abd is soft X 4 quads Abdomen is tender to palpation in right lower quadrant and left lower quadrant Patient currently denies diarrhea, nausea, vomiting. Derm: Skin is intact, is healthy with good turgor, Skin is pink, warm \T\ dry. Musculoskeletal: Capillary refill < 3 seconds, Range of motion: intact in all extremities. 16:39 Reassessment: pt returned from CT. tr6 17:03 Reassessment: Patient and/or family updated on plan of care and expected duration. Pain em level reassessed. Patient is alert, oriented x 3, equal unlabored respirations, skin warm/dry/pink. Patient states feeling better. Vital Signs: 14:11 BP 147 / 118; Pulse 81; Resp 16; Temp 98; Pulse Ox 99% ; Weight 84.82 kg; Height 5 ft. sv 5 in. (165.10 cm); Pain 10/10; 16:14 BP 172 / 94; Pulse 82; Resp 14; Pulse Ox 97% on R/A; em 17:15 BP 178 / 99; Pulse 78; Resp 15; Pulse Ox 98% on R/A; Pain 6/10; em 14:11 Body Mass Index 31.12 (84.82 kg, 165.10 cm) sv ED Course: 14:05 Patient arrived in ED. mr 14:13 Triage completed. sv 14:14 Arm band placed on. sv 15:17 Andres Mae MD is Attending Physician. kdr 15:38 Herbert Jimenez, CIARA is Primary Nurse. em 15:38 Patient has correct armband on for positive identification. em 16:00 Initial lab(s) drawn, by me, sent to lab. Inserted saline lock: 22 gauge in right em antecubital area, using aseptic technique. Blood collected. 16:36 CT Abd/Pelvis - IV Contrast Only In Process Unspecified. EDMS 16:39 No provider procedures requiring assistance completed. tr6 17:49 IV discontinued, intact, bleeding controlled, No redness/swelling at site. Pressure em dressing applied. Administered Medications: 16:18 Drug: Zofran (Ondansetron) 4 mg Route: IVP; Site: right antecubital; em 16:35 Follow up: Response: No adverse reaction em 16:20 Drug: morphine 4 mg Route: IVP; Site: right antecubital; em 16:35 Follow up: Response: No adverse reaction; Marked relief of symptoms; Pain is decreased em 17:38 Drug: Magnesium Citrate Liquid 300 ml Route: PO; em 17:48 Follow up: Response: Medication administered at discharge. em 17:39 Drug: Dulcolax (bisacodyl) Delayed Release Tablet 5 mg Route: PO; em 17:48 Follow up: Response: Medication administered at discharge. em Outcome: 17:34 Discharge ordered by . kdr 17:48 Discharged to home ambulatory. em 17:48 Condition: stable 17:48 Discharge instructions given to patient, Instructed on discharge instructions, follow up and referral plans. medication usage, Demonstrated understanding of instructions, follow-up care, medications, Prescriptions given X 2. 17:50 Patient left the ED. em Signatures: Dispatcher [employer] Mercy Powell, CIARA URBINA Andres Mae MD MD kdr Rivera, Mary Herbert Jimenez RN RN Laurence Duncan RN RN tr6
--- NOTE | 2021-01-03 17:36 | EDPHYS ---
Physician Documentation [facility] Name: Jabier King Age: 65 yrs Sex: Male : 1955 Arrival Date: 01/03/2021 Time: 14:05 Bed 4 Private MD: ED Physician Andres Mae HPI: 01/03 17:55 This 65 yrs old Black Male presents to ER via Ambulatory with complaints of Abdominal kdr Pain. 17:55 The patient presents with abdominal pain in the lower abdomen. Onset: The kdr symptoms/episode began/occurred gradually, 2 week(s) ago. The symptoms do not radiate. Associated signs and symptoms: Pertinent positives: constipation, Pertinent negatives: nausea, vomiting, and diarrhea, diarrhea, headache, hematuria, palpitations, shortness of breath, testicular pain. The symptoms are described as achy, constant, dull, vague. Modifying factors: The symptoms are alleviated by nothing, the symptoms are aggravated by movement. Severity of pain: At its worst the pain was mild moderate just prior to arrival, in the emergency department the pain is unchanged. The patient has not experienced similar symptoms in the past. The patient has been recently seen by a physician: Was seen in clinic at [facility] in [facility] about 10 days ago but does not know what the results were of the tests done. Historical: - Allergies: 14:14 Bactrim; sv - PMHx: 14:14 Diabetes - NIDDM; High Cholesterol; CVA; Hypertension; sv - Immunization history:: Adult Immunizations up to date, Client reports receiving the 2nd dose of the Covid vaccine, Client reports receiving the 1st dose of the Covid vaccine. - Social history:: Smoking status: Patient reports the use of cigarette tobacco products, denies chronic smoking, but will smoke occasionally. ROS: 17:55 Constitutional: Negative for fever, chills, and weight loss, Eyes: Negative for injury, kdr pain, redness, and discharge, ENT: Negative for injury, pain, and discharge, Neck: Negative for injury, pain, and swelling, Cardiovascular: Negative for chest pain, palpitations, and edema, Respiratory: Negative for shortness of breath, cough, wheezing, and pleuritic chest pain, Back: Negative for injury and pain, : Negative for injury, bleeding, discharge, and swelling, MS/Extremity: Negative for injury and deformity, Skin: Negative for injury, rash, and discoloration, Neuro: Negative for headache, weakness, numbness, tingling, and seizure activity. Psych: Negative for depression, anxiety, suicide ideation, homicidal ideation, and hallucinations, Allergy/Immunology: Negative for hives, rash, and allergies, Endocrine: Negative for neck swelling, polydipsia, polyuria, polyphagia, and marked weight changes, Hematologic/Lymphatic: Negative for swollen nodes, abnormal bleeding, and unusual bruising. 17:55 Abdomen/GI: Positive for abdominal pain, constipation, Negative for vomiting, diarrhea, abdominal distension, anorexia, dysphagia, hematemesis, black/tarry stool, rectal pain, rectal bleeding, bowel incontinence. Exam: 17:55 Constitutional: This is a well developed, well nourished patient who is awake, alert, kdr and in no acute distress. Head/Face: Normocephalic, atraumatic. Eyes: Pupils equal round and reactive to light, extra-ocular motions intact. Lids and lashes normal. Conjunctiva and sclera are non-icteric and not injected. Cornea within normal limits. Periorbital areas with no swelling, redness, or edema. Neck: Trachea midline, no thyromegaly or masses palpated, and no cervical lymphadenopathy. Supple, full range of motion without nuchal rigidity, or vertebral point tenderness. No Meningismus. Chest/axilla: Normal chest wall appearance and motion. Nontender with no deformity. No lesions are appreciated. Cardiovascular: Regular rate and rhythm with a normal S1 and S2. No gallops, murmurs, or rubs. Normal PMI, no JVD. No pulse deficits. Respiratory: Lungs have equal breath sounds bilaterally, clear to auscultation and percussion. No rales, rhonchi or wheezes noted. No increased work of breathing, no retractions or nasal flaring. Abdomen/GI: Soft, non-tender, with normal bowel sounds. No distension or tympany. No guarding or rebound. No evidence of tenderness throughout. Back: No spinal tenderness. No costovertebral tenderness. Full range of motion. Skin: Warm, dry with normal turgor. Normal color with no rashes, no lesions, and no evidence of cellulitis. MS/ Extremity: Pulses equal, no cyanosis. Neurovascular intact. Full, normal range of motion. Neuro: Awake and alert, GCS 15, oriented to person, place, time, and situation. Cranial nerves II-XII grossly intact. Motor strength 5/5 in all extremities. Sensory grossly intact. Cerebellar exam normal. Normal gait. Psych: Awake, alert, with orientation to person, place and time. Behavior, mood, and affect are within normal limits. Vital Signs: 14:11 BP 147 / 118; Pulse 81; Resp 16; Temp 98; Pulse Ox 99% ; Weight 84.82 kg; Height 5 ft. sv 5 in. (165.10 cm); Pain 10/10; 16:14 BP 172 / 94; Pulse 82; Resp 14; Pulse Ox 97% on R/A; em 17:15 BP 178 / 99; Pulse 78; Resp 15; Pulse Ox 98% on R/A; Pain 6/10; em 14:11 Body Mass Index 31.12 (84.82 kg, 165.10 cm) sv MDM: 17:34 Patient medically screened. kdr 17:55 Data reviewed: vital signs, nurses notes, lab test result(s), radiologic studies. kdr Counseling: I had a detailed discussion with the patient and/or guardian regarding: the historical points, exam findings, and any diagnostic results supporting the discharge/admit diagnosis, lab results, radiology results, the need for outpatient follow up. Response to treatment: the patient's symptoms have mildly improved after treatment, patient is well hydrated. Special discussion: Based on the patient's Hx, exam, and Dx evaluation, there is no indication for emergent surgery or inpatient Tx. It is understood by the patient/guardian that if the Sx's persist or worsen they need to return immediately for re-evaluation. I discussed with the patient/guardian in detail that at this point there is no indication for admission to the hospital. It is understood, however, that if the symptoms persist or worsen the patient needs to return immediately for re-evaluation. 01/03 15:40 Order name: Basic Metabolic Panel; Complete Time: 17:24 kdr 01/03 15:40 Order name: CBC with Diff; Complete Time: 16:53 kdr 01/03 15:40 Order name: Hepatic Function; Complete Time: 17:24 kdr 01/03 15:40 Order name: Lipase; Complete Time: 17:24 kdr 01/03 16:02 Order name: CT Abd/Pelvis - IV Contrast Only; Complete Time: 17:24 kdr 01/03 15:40 Order name: IV Saline Lock; Complete Time: 16:03 kdr 01/03 15:40 Order name: Labs collected and sent; Complete Time: 16:03 kdr Administered Medications: 16:18 Drug: Zofran (Ondansetron) 4 mg Route: IVP; Site: right antecubital; em 16:35 Follow up: Response: No adverse reaction em 16:20 Drug: morphine 4 mg Route: IVP; Site: right antecubital; em 16:35 Follow up: Response: No adverse reaction; Marked relief of symptoms; Pain is decreased em 17:38 Drug: Magnesium Citrate Liquid 300 ml Route: PO; em 17:48 Follow up: Response: Medication administered at discharge. em 17:39 Drug: Dulcolax (bisacodyl) Delayed Release Tablet 5 mg Route: PO; em 17:48 Follow up: Response: Medication administered at discharge. em Disposition: 01/03/21 17:34 Discharged to Home. Impression: Abdominal and pelvic pain, Constipation. - Condition is Stable. - Discharge Instructions: Constipation, Adult, Foge-fm-Wime, Abdominal Pain, Adult, [id number]. - Prescriptions for Dulcolax (bisacodyl) 5 mg Oral tablet,delayed release (DR/EC) - take 2 tablet by ORAL route once daily As needed; 20 tablet. Miralax 17 gram/dose Oral - take 1 packet by ORAL route once daily dilute powder in 8 ounces of water or juice; 2 box. - Medication Reconciliation Form, Thank You Letter form. - Follow up: Private Physician; When: 2 - 3 days; Reason: If symptoms return, Further diagnostic work-up, Recheck today's complaints, Continuance of care, Re-evaluation by your physician. - Problem is an ongoing problem. - Symptoms are unchanged. Signatures: Dispatcher [employer] Mercy Powell RN RN Andres Mae MD MD kdr Munoz, Edgar, RN RN em Corrections: (The following items were deleted from the chart) 17:50 17:34 01/03/2021 17:34 Discharged to Home. Impression: Abdominal and pelvic pain; em Constipation. Condition is Stable. Forms are Medication Reconciliation Form, Thank You Letter, Antibiotic Education, Prescription Opioid Use. Follow up: Private Physician; When: 2 - 3 days; Reason: If symptoms return, Further diagnostic work-up, Recheck today's complaints, Continuance of care, Re-evaluation by your physician. Problem is an ongoing problem. Symptoms are unchanged. kdr
[2021-01-03] MEDS ORDERED: BISACODYL E.C. 5 MG TAB PO ONE (17:56)
[2021-01-03] MEDS ORDERED: MAGNESIUM CITRATE 300 ML BOT ONE (17:56)
[2021-01-03 18:17] VITALS: TEMP 98
[2021-01-03 18:20] VITALS: BP 178/99; O2SAT 98
== END 2021-01-03 17:50 | disposition home or self-care (01) ==
LOC: ER 14:01
DX: R10.30 Lower abdominal pain, unspecified (principal); K59.00 Constipation, unspecified; F17.210 Nicotine dependence, cigarettes, uncomplicated; E11.9 Type 2 diabetes mellitus without complications; E78.00 Pure hypercholesterolemia, unspecified; I10 Essential (primary) hypertension; Z86.73 Personal history of transient ischemic attack (TIA), and cerebral infarction without residual deficits
CPT/HCPCS: 85025; 80048; 36415; 82565; 80076; 83690; 74177; 96375; 96374; 99284; Q9967; J2405

== ENCOUNTER 2021-01-05 18:18 | Emergency (ER) | payer OTHER ==
--- OUTSIDE RECORDS SUMMARY | 2021-01-05 18:20 | XMS REPORT | Continuity of Care Document ---
:1955 Author Organization [facility] t Address [address] [place] [place] [address] Care Team Providers Name Role Phone Lynnette MUÑIZ Attending Clinician Problems This patient has no known problems. Allergies, Adverse Reactions, Alerts This patient has no known allergies or adverse reactions. Medications This patient has no known medications. Procedures This patient has no known procedures. Encounters Start End Encounter Admission Attending Care Care Encounter Source Date/Time Date/Time Type Type Clinicians Facility Department ID 2021-01-02 2021-01-02 Telephone [facility] [id number] 00:00:00 00:00:00 Zak Ellis [id number] [place] [phone] 2021-01-01 2021-01-01 [facility] [id number] 15:50:00 23:59:00 Encounter Zak Ellis [id number] [place] [id number] [place] [id number] 2021-01-01 2021-01-01 Office [facility] [id number] 14:12:54 15:07:47 Visit Zak Ellis [id number] [place] [id number] [facility] [phone] [place] 044 [facility] Results This patient has no known results.
[2021-01-05 19:50] LABS: Absolute Lymphocytes (CBC) 3.3 K/uL (0.7-4.9); Basophils % 0.7 % (0-1.3); Hematocrit 48.3 % (39.6-49.0); Lymphocytes % 28.1 % (15.3-44.8); MPV 7.3 fL (7.6-11.3); RBC Red Blood Cell Count 5.41 M/uL (4.33-5.43)
[2021-01-05] MEDS ORDERED: MORPHINE 4 MG/ML SYR ONE (19:52)
[2021-01-05] MEDS ORDERED: ONDANSETRON 4 MG/2 ML VIAL ONE (19:53)
[2021-01-05] MEDS ORDERED: HYDRALAZINE HCL 20 MG/ML VIAL ONE ×2 (20:55→21:43)
[2021-01-05] MEDS ORDERED: NA CHLORIDE 0.9% 1,000 ML ONE (20:56)
[2021-01-05] MEDS ORDERED: LACTULOSE 20 GM/30 ML UCUP ONE (20:56)
[2021-01-05 21:15] LABS: ALT/SGPT 31 U/L (12-78); AST/SGOT 29 U/L (15-37); Albumin 3.9 g/dL (3.4-5.0); Alkaline Phosphatase 144 U/L (45-117); BUN Blood Urea Nitrogen 14 mg/dL (7-18); Bicarbonate 28 mmol/L (21-32); Bilirubin Direct 0.1 mg/dL (0-0.2); Bilirubin Total 0.4 mg/dL (0.2-1.0); Glucose Level 109 mg/dL (74-106); Lipase 252 U/L (73-393); Potassium 3.8 mmol/L (3.5-5.1); Protein, Total 8.7 g/dL (6.4-8.2); Sodium Level 141 mmol/L (136-145)
--- NOTE | 2021-01-05 22:04 | ER ---
Nurse's Notes [facility] Name: Jabier King Age: 65 yrs Sex: Male : 1955 Arrival Date: 01/05/2021 Time: 18:21 Bed 17 Private MD: Diagnosis: Constipation, unspecified Presentation: 01/05 18:29 Chief complaint: Patient states: Was here 2 days [employer] for same abdominal pain, still ca1 having abdominal pain, in middle and across. Denies N/V/D. Coronavirus screen: Client denies travel out of the [place] in the last 14 days. At this time, the client does not indicate any symptoms associated with coronavirus-19. Ebola Screen: Patient negative for fever greater than or equal to 101.5 degrees Fahrenheit, and additional compatible Ebola Virus Disease symptoms Patient denies exposure to infectious person. Patient denies travel to an Ebola-affected area in the 21 days before illness onset. No symptoms or risks identified at this time. Initial Sepsis Screen: Does the patient meet any 2 criteria? No. Patient's initial sepsis screen is negative. Does the patient have a suspected source of infection? No. Patient's initial sepsis screen is negative. Risk Assessment: Do you want to hurt yourself or someone else? Patient reports no desire to harm self or others. Onset of symptoms was January 05, 2021. 18:29 Method Of Arrival: Ambulatory ca1 18:29 Acuity: TARA 3 ca1 18:33 Acuity: TARA 2 ca1 Historical: - Allergies: 18:31 Bactrim; ca1 - PMHx: 18:31 CVA; Diabetes - NIDDM; High Cholesterol; Hypertension; ca1 - PSHx: 18:31 None; ca1 - Immunization history:: Client reports receiving the 2nd dose of the Covid vaccine, Client reports receiving the 1st dose of the Covid vaccine, Flu vaccine is up to date. - Social history:: Smoking status: Patient reports the use of cigarette tobacco products, smokes one-half pack cigarettes per day. Screenin:47 Abuse screen: Denies threats or abuse. Denies injuries from another. Nutritional jm8 screening: No deficits noted. Tuberculosis screening: No symptoms or risk factors identified. Fall Risk IV access (20 points). Assessment: 20:45 General: Appears in no apparent distress. comfortable, Behavior is calm, cooperative, jm8 appropriate for age. Pain: Complains of pain in abdomen Pain currently is 10 out of 10 on a pain scale. Quality of pain is described as aching, Pain began 4 days ago Alleviated by medications. Neuro: No deficits noted. Level of Consciousness is awake, alert, obeys commands, Oriented to person, place, time. Cardiovascular: No deficits noted. Respiratory: No deficits noted. Airway is patent Trachea midline Respiratory effort is even, unlabored, Respiratory pattern is regular, symmetrical. GI: Abdomen is round Bowel sounds present X 4 quads. Abd is soft and non tender Reports lower abdominal pain, upper abdominal pain, bloating, constipation, gaseousness. : No deficits noted. No signs and/or symptoms were reported regarding the genitourinary system. EENT: No deficits noted. No signs and/or symptoms were reported regarding the EENT system. Derm: No deficits noted. No signs and/or symptoms reported regarding the dermatologic system. Skin is intact, is healthy with good turgor, Skin is dry, Skin is pink, warm \T\ dry. Skin temperature is warm. Musculoskeletal: No deficits noted. No signs and/or symptoms reported regarding the musculoskeletal system. Vital Signs: 18:29 Pulse 110; Resp 18 S; Temp 97.9(TE); Pulse Ox 99% on R/A; Weight 84.82 kg (R); Height 5 ca1 ft. 5 in. (165.10 cm) (R); Pain 10/10; 18:31 BP 190 / 115 RA; ca1 18:31 BP 201 / 121 LA; ca1 22:06 BP 168 / 96; Pulse 99; Resp 16; Pulse Ox 99% on R/A; jm8 18:29 Body Mass Index 31.12 (84.82 kg, 165.10 cm) ca1 ED Course: 18:21 Patient arrived in ED. as 18:30 Triage completed. ca1 18:31 Arm band placed on right wrist. ca1 19:17 Jean Carlos Pearl MD is Attending Physician. tw4 19:45 Inserted saline lock: 20 gauge in right antecubital area, using aseptic technique. jm8 20:48 Patient has correct armband on for positive identification. Bed in low position. Call jm8 light in reach. Side rails up X2. 22:19 No provider procedures requiring assistance completed. IV discontinued, intact, jm8 bleeding controlled. Administered Medications: 19:42 Drug: morphine 4 mg Route: IVP; Site: right antecubital; ak2 20:45 Follow up: Response: No adverse reaction; Pain is decreased jm8 19:42 Drug: Zofran (Ondansetron) 4 mg Route: IVP; Site: right antecubital; ak2 20:45 Follow up: Response: No adverse reaction jm8 20:39 Drug: NS 0.9% 1000 ml Route: IV; Rate: 1 bolus; Site: right antecubital; jm8 20:39 Drug: Lactulose 30 grams Volume: 45 ml; Route: PO; jm8 21:21 Follow up: Response: No adverse reaction jm8 20:39 Drug: hydrALAZINE 10 mg Route: IVP; Site: right antecubital; jm8 21:21 Follow up: Response: No adverse reaction; Blood pressure is unchanged jm8 21:24 Drug: hydrALAZINE 10 mg Route: IVP; Site: right antecubital; jm8 22:07 Follow up: Response: No adverse reaction; Blood pressure is lowered [facility] Outcome: 22:03 Discharge ordered by MD. wallace 22:20 Discharged to home ambulatory. 8 22:20 Condition: good 22:20 Discharge instructions given to patient, Instructed on discharge instructions, follow up and referral plans. medication usage, Demonstrated understanding of instructions, follow-up care, medications. 22:20 Patient left the ED. jm8 Signatures: Brooke Soto Terrence, MD MD twKristal Wasserman RN RN ca1 Malcaba, Joseph, RN RN 8 [place] [place] [facility]
--- NOTE | 2021-01-05 22:04 | EDPHYS ---
Physician Documentation [facility] Name: Jabier King Age: 65 yrs Sex: Male : 1955 Arrival Date: 01/05/2021 Time: 18:21 Bed 17 Private MD: ED Physician Jean Carlos Pearl HPI: 01/05 19:28 This 65 yrs old Black Male presents to ER via Ambulatory with complaints of Abdominal tw4 Pain. 19:28 The patient presents with abdominal pain in the epigastric area. Onset: The tw4 symptoms/episode began/occurred 4 day(s) ago. The symptoms do not radiate. Associated signs and symptoms: none. The symptoms are described as sharp. Modifying factors: The symptoms are alleviated by the symptoms are aggravated by movement, pressure. Severity of pain: At its worst the pain was moderate in the emergency department the pain is unchanged. The patient has not experienced similar symptoms in the past. Historical: - Allergies: 18:31 Bactrim; ca1 - PMHx: 18:31 CVA; Diabetes - NIDDM; High Cholesterol; Hypertension; ca1 - PSHx: 18:31 None; ca1 - Immunization history:: Client reports receiving the 2nd dose of the Covid vaccine, Client reports receiving the 1st dose of the Covid vaccine, Flu vaccine is up to date. - Social history:: Smoking status: Patient reports the use of cigarette tobacco products, smokes one-half pack cigarettes per day. ROS: 19:28 Constitutional: Negative for fever, chills, and weight loss. tw4 19:28 Cardiovascular: Negative for chest pain, palpitations, and edema, Back: Negative for injury and pain, MS/Extremity: Negative for injury and deformity, Skin: Negative for injury, rash, and discoloration, Neuro: Negative for headache, weakness, numbness, tingling, and seizure. 19:28 Abdomen/GI: Positive for abdominal pain, Negative for nausea and vomiting, nausea, vomiting, and diarrhea, nausea, vomiting, diarrhea, constipation, abdominal cramps, abdominal distension, anorexia, dysphagia, hematemesis, black/tarry stool, rectal pain. Exam: 19:28 Constitutional: This is a well developed, well nourished patient who is awake, alert, tw4 and in no acute distress. Head/Face: Normocephalic, atraumatic. Chest/axilla: Normal chest wall appearance and motion. Nontender with no deformity. No lesions are appreciated. Cardiovascular: Regular rate and rhythm with a normal S1 and S2. No gallops, murmurs, or rubs. Normal PMI, no JVD. No pulse deficits. Respiratory: Lungs have equal breath sounds bilaterally, clear to auscultation and percussion. No rales, rhonchi or wheezes noted. No increased work of breathing, no retractions or nasal flaring. 19:28 Abdomen/GI: Inspection: abdomen appears normal, Bowel sounds: normal, Palpation: moderate abdominal tenderness, voluntary guarding, is elicited in the epigastric area, right upper quadrant and left upper quadrant. Vital Signs: 18:29 Pulse 110; Resp 18 S; Temp 97.9(TE); Pulse Ox 99% on R/A; Weight 84.82 kg (R); Height 5 ca1 ft. 5 in. (165.10 cm) (R); Pain 10/10; 18:31 BP 190 / 115 RA; ca1 18:31 BP 201 / 121 LA; ca1 22:06 BP 168 / 96; Pulse 99; Resp 16; Pulse Ox 99% on R/A; jm8 18:29 Body Mass Index 31.12 (84.82 kg, 165.10 cm) ca1 MDM: 19:17 Patient medically screened. 01/06 04:54 Differential diagnosis: appendicitis, bowel obstruction, Hepatitis, Herpes Zoster, tw4 Irritable bowel syndrome. Data reviewed: vital signs, nurses notes. Data interpreted: Pulse oximetry: Interpretation: normal. Counseling: I had a detailed discussion with the patient and/or guardian regarding: the historical points, exam findings, and any diagnostic results supporting the discharge/admit diagnosis. Special discussion: I discussed with the patient/guardian in detail that at this point there is no indication for admission to the hospital. It is understood, however, that if the symptoms persist or worsen the patient needs to return immediately for re-evaluation. 01/05 19:18 Order name: Basic Metabolic Panel tw 01/05 19:18 Order name: CBC with Diff tw4 01/05 19:18 Order name: Hepatic Function tw 01/05 19:18 Order name: Lipase tw 01/05 19:18 Order name: Basic Metabolic Panel EDMD 01/05 19:18 Order name: IV Saline Lock; Complete Time: 19:44 tw4 01/05 19:18 Order name: Labs collected and sent; Complete Time: 19:44 tw4 01/05 20:11 Order name: Labs - recollect needed: green top; Complete Time: 20:49 mw2 Administered Medications: 01/05 19:42 Drug: morphine 4 mg Route: IVP; Site: right antecubital; ak2 20:45 Follow up: Response: No adverse reaction; Pain is decreased jm8 19:42 Drug: Zofran (Ondansetron) 4 mg Route: IVP; Site: right antecubital; ak2 20:45 Follow up: Response: No adverse reaction jm8 20:39 Drug: NS 0.9% 1000 ml Route: IV; Rate: 1 bolus; Site: right antecubital; jm8 20:39 Drug: Lactulose 30 grams Volume: 45 ml; Route: PO; jm8 21:21 Follow up: Response: No adverse reaction jm8 20:39 Drug: hydrALAZINE 10 mg Route: IVP; Site: right antecubital; jm8 21:21 Follow up: Response: No adverse reaction; Blood pressure is unchanged 8 21:24 Drug: hydrALAZINE 10 mg Route: IVP; Site: right antecubital; jm8 22:07 Follow up: Response: No adverse reaction; Blood pressure is lowered 8 Disposition: 01/05/21 22:03 Discharged to Home. Impression: Constipation, unspecified. - Condition is Stable. - Discharge Instructions: Constipation, Adult. - Prescriptions for Colace 100 mg Oral Tablet - take 1 tablet by ORAL route every 12 hours; 14 tablet. Lactulose 10 gram/15 mL Oral Solution - take 30 milliliter by ORAL route once daily; 300 milliliter. Dulcolax 10 mg Rectal Suppository - insert 1 suppository by RECTAL route every 6 hours As needed; 10 suppository. - Medication Reconciliation Form, Thank You Letter, Antibiotic Education, Prescription Opioid Use form. - Follow up: Private Physician; When: Upon discharge from the Emergency Department; Reason: Recheck today's complaints, Continuance of care, Re-evaluation by your physician. - Problem is new. - Symptoms have improved. Signatures: Dispatcher [employer] Jean Carlos Chase MD MD tw4 Quentin Biswas mw2 Kristal Cabello, RN RN ca1 Rolf Benites RN RN jm8 Vinay [place] ak2 Corrections: (The following items were deleted from the chart) 22:20 22:03 01/05/2021 22:03 Discharged to Home. Impression: Constipation, unspecified. jm8 Condition is Stable. Forms are Medication Reconciliation Form, Thank You Letter, Antibiotic Education, Prescription Opioid Use. Follow up: Private Physician; When: Upon discharge from the Emergency Department; Reason: Recheck today's complaints, Continuance of care, Re-evaluation by your physician. Problem is new. Symptoms have improved. tw4
[2021-01-05 23:28] VITALS: TEMP 97.9; O2SAT 99
[2021-01-05 23:30] VITALS: BP 168/96
== END 2021-01-05 22:20 | disposition home or self-care (01) ==
LOC: ER 18:18
DX: K59.00 Constipation, unspecified (principal); I10 Essential (primary) hypertension; F17.210 Nicotine dependence, cigarettes, uncomplicated; Z88.1 Allergy status to other antibiotic agents; Z86.73 Personal history of transient ischemic attack (TIA), and cerebral infarction without residual deficits
CPT/HCPCS: 85025; 80048; 36415; 80076; 83690; J0360 ×2; J7030; J2405; 96374; 96375; 99283

== ENCOUNTER 2021-12-13 23:33 | Emergency (ER) | payer OTHER ==
--- OUTSIDE RECORDS SUMMARY | 2021-12-13 23:36 | XMS REPORT | Continuity of Care Document ---
:1955 Author Organization [facility] t Address [address] [place] [address] Care Team Providers Name Role Phone LYNNETTE Primary Care Physician Unavailable LYNNETTE Attending Clinician Unavailable Gian WELSH Attending Clinician Unavailable Blaise MUÑIZ, K.H. 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 Univers effect of effect of 0-01 ity of cerebrovas cerebrovas [place] c[place] cular 00 Medical accident accident Branch (CVA) (CVA) Cigarette Cigarette Disease Active 2020-08 Uni vers nicotine nicotine 0-01 ity of dependence dependence [place] without without 00 Medical complicati complicati Br anch on on UTI UTI Disease Active Univers (urinary (urinary 6-25 ity of tract tract 00:00: [place] infection) infection) 00 Me dical due to due to Branch Enterococc Enterococc us us Nephrolith Nephrolith Disease Active U nivers iasis iasis 6-25 ity of 00:00: [place] 00 Medical Branch Liver Liver Disease Active Univers disease, disease, 6-25 ity of chronic, chronic, 00:00: [place] with with 00 Medical cirrhosis cirrhosis Bran ch Decreased Decreased Disease Active Uni vers GFR GFR 5-20 ity of 00:00: [place] 00 Medical Branch Abdominal Abdominal Disease Active Uni vers pain, pain, 5-20 ity of acute, acute, 00:00: [place] generalize generalize 00 Me dical d d Branch Asymptomat Asymptomat Disease Active U nivers ic ic 2-19 ity of hypertensi hypertensi 00:[place] ve urgency ve urgency 00 Me dical Branch Chronic Chronic Disease Active Univers hepatitis hepatitis 2-04 ity of C without C without 00:00[place] hepatic hepatic 00 Medical coma coma Branch Syphilis Syphilis Disease Active Unive rs in male in male 2-04 ity of 00:00: [place] 00 Medical Branch Screening Screening Disease Active 2019-08 Uni vers for for 1-18 ity of malignant malignant 00:[place] ne[place] ne[place] 00 Medica l of colon of colon Branch Flu Flu Disease Active 2019-08 Univers vaccine vaccine 1-18 ity of need need 00:00: [place] 00 Medical Branch Need for Need for Disease Active 2019-08 Unive rs Tdap Tdap 1-18 ity of vaccinatio vaccinatio 00:[place] n n 00 Medical Branch Tremor Tremor Disease Active 2019-08 Univers 1-04 ity of 00:00: [place] 00 Medical Branch Anxiety Anxiety Disease Active 2019-08 Univers 1-04 ity of 00:00: [place] 00 Medical Branch Mild Mild Disease Active 2019-08 Univers depression depression 1-04 it y of 00:00: [place] 00 Medical Branch Essential Essential Disease Active 2019-08 Uni vers hypertensi hypertensi 1-04 it y of on on 00:00: [place] [facility] Nicotine Nicotine Disease Active 2019-08 Unive rs dependence dependence 1-04 it y of , , 00:00: [place] cigarettes cigarettes 00 Me dical , with , with Branch unspecifie unspecifie d d nicotine-i nicotine-i nduced nduced disorders disorders 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 1-04 ity of chronic chronic 00:00: [place] pancreatit pancreatit 00 Me dical is is Branch Need for Need for Disease Active 2019-08 Unive rs hepatitis hepatitis 1-04 ity of C C 00:00: [place] screening screening 00 Medi brad test test Branch Primary Primary Disease Active 2019-08 Univers insomnia insomnia 1-04 ity of 00:00: [place] 00 Medical Branch Cerebrovas Cerebrovas Disease Active 2019-08 U [place] cular cular 1-04 ity of accident accident 00:00: [place] (CVA), (CVA), 00 Medical unspecifie unspecifie Br anch d d mechanism mechanism Memory Memory Disease Active 2019-08 Univers changes changes 1-04 ity of 00:00: [place] 00 Medical Branch Dyslipidem Dyslipidem Disease Active 2019-08 U [place] ia ia 1-04 ity of 00:00: [place] [facility] Diabetes Diabetes Disease Active 2019-08 Unive rs mellitus mellitus 1-04 ity of type II, type II, 00:00: [place] non non 00 Medical insulin insulin Branch dependent dependent Allergies, Adverse Reactions, Alerts Allergy Allergy Status Severity Reaction(s) Onset Inactive Treating Comm ents Source Name Type Date Date Clinician Sulfamet Propensi Active Hives 2020-08 Univer s hoxazole ty to 0-28 ity of -Trimeth adverse 00:00: [place] oprim reaction 00 [facility] SULFAMET DRUG Active Med Hives 2020-08 Univers HOXAZOLE 0-28 ity of -TRIMETH 00:00: [place] OPRIM 00 [facility] BACITRAC DRUG Active Med ITCHING 2019-08 Univers IN INGREDI 2-21 ity of 00:00: [place] 00 [facility] Bacitrac Propensi Active Itching 2019-08 Unive rs in ty to 2-21 ity of adverse 00:00: [place] reaction 00 [facility] [place] Social History Social Habit Start Date Stop Date Quantity Comments Source History of tobacco Cigarette Smoker University of use [facility] Exposure to Not sure University of SARS-CoV-2 (event) [facility] Alcohol intake 2021-10-01 2021-10-01 .71 /d University of 00:00:00 00:00:00 [facility] Tobacco use and 2020-06-18 2020-06-18 Never used Universit y of exposure 00:00:00 00:00:00 [facility] Cigarettes smoked 2020-06-18 2020-06-18 Univers ity of current (pack per 00:00:00 00:00:00 [facility] ) - Reported Branch Cigarette 2020-06-18 2020-06-18 University of pack-years 00:00:00 00:00:00 [facility] Tobacco Comment 2020-06-18 2020-06-18 open to trial of Uni versity of 00:00:00 00:00:00 nicotine [facility] transdermal [place] therapy Sex [birth year] Universit y of 00:00:00 00:00:00 [facility] Smoking Status Start Date Stop Date Source Current every day smoker 2020-06-18 00:00:00 Uni versity of [facility] Medications Ordered Filled Start Stop Current Ordering Indication Dosage Frequency Signature Comments Components Source Medication Medication Date Date Medication? Clinician (SIG) Name Name ipratropium Yes 2{puff} Inhale 2 Univers (ATROVENT 2-17 Puffs 4 ity of HFA) 17 10:03: (four) [place] mcg/actuati 44 times Medical on inhaler daily. Branch ipratropium Yes 2{puff} Inhale 2 Univers (ATROVENT 2-17 Puffs 4 ity of HFA) 17 10:03: (four) [place] mcg/actuati 44 times Medical on inhaler daily. Branch doxycycline Yes [id number] 100mg Take 1 Univers hyclate 100 1-27 tablet by ity of mg tablet 00:00: mouth 2 [place] 00 (two) Medical times Branch daily. doxycycline Yes [id number] 100mg Take 1 Univers hyclate 100 1-27 tablet by ity of mg tablet 00:00: mouth 2 [place] 00 (two) Medical times Branch daily. glipiZIDE Yes [id number] TAKE ONE Univers 10 mg 1-14 (1) ity of tablet 00:00: TABLET(S) 00 BY MOUTH Medical ONCE A DAY Branch BEFORE MEALS. atorvastati Yes [id number] 40mg Take 1 Univers n 40 mg 1-14 tablet by ity of tablet 00:00: mouth at [place] 00 bedtime. Medical Branch nicotine Yes [id number] 1{patch Apply 1 Univers mg/24 hr 1-14 } Patch to ity of patch 00:00: area(s) [place] 00 daily. Medical Apply 21mg Branch patch daily x 6 weeks; then apply 14mg patch daily x 2 weeks; then apply 7mg patch daily x 2 weeks. Stop smoking on initiation of therapy cloNIDine Yes [id number] .2mg Take 1 U nivers 0.2 mg 1-14 tablet by ity of tablet 00:00: mouth 3 [place] 00 (three) Medical times Branch daily as needed (Hypertens ion). Take 1 Mcdaniel TID PRN if BP >150/90 traMADoL 50 Yes [id number] 50mg Take 1 Univ ers mg tablet 1-14 tablet by ity o f 00:00: mouth [place] 00 every 8 Medical (eight) Branch hours as needed for Pain (scale 7-10). Indication s: chronic pain nicotine 7 Yes [id number] 1{patch Apply 1 Univers mg/24 hr 1-14 } Patch to ity of patch 00:00: area(s) [place] 00 every 24 Medical (twenty-fo Branch ur) hours. Apply 21mg patch daily x 6 weeks; then apply 14mg patch daily x 2 weeks; then apply 7mg patch daily x 2 weeks. Stop smoking on initiation of therapy nicotine Yes [id number] 1{patch Apply 1 Univers mg/24 hr 1-14 } Patch to ity of patch 00:00: area(s) [place] 00 every 24 Medical (twenty-fo Branch ur) hours. Apply 21mg patch daily x 6 weeks; then apply 14mf patch daily x 2 weeks; then apply 7mg patch daily x 2 weeks. Stop smoking on initiation of therapy glipiZIDE Yes [id number] TAKE ONE Univers 10 mg 1-14 (1) ity of tablet 00:00: TABLET(S) [place] 00 BY MOUTH Medical ONCE A DAY Branch BEFORE MEALS. atorvastati Yes [id number] 40mg Take 1 Univers n 40 mg 1-14 tablet by ity of tablet 00:00: mouth at [place] 00 bedtime. Medical Branch nicotine Yes [id number] 1{patch Apply 1 Univers mg/24 hr 1-14 } Patch to ity of patch 00:00: area(s) [place] 00 daily. Medical Apply 21mg Branch patch daily x 6 weeks; then apply 14mg patch daily x 2 weeks; then apply 7mg patch daily x 2 weeks. Stop smoking on initiation of therapy cloNIDine Yes [id number] .2mg Take 1 U nivers 0.2 mg 1-14 tablet by ity of tablet 00:00: mouth 3 [place] 00 (three) Medical times Branch daily as needed (Hypertens ion). Take 1 Mcdaniel TID PRN if BP >150/90 traMADoL 50 Yes [id number] 50mg Take 1 Univ ers mg tablet 1-14 tablet by ity o f 00:00: mouth [place] 00 every 8 Medical (eight) Branch hours as needed for Pain (scale 7-10). Indication s: chronic pain nicotine 7 Yes [id number] 1{patch Apply 1 Univers mg/24 hr 1-14 } Patch to ity of patch 00:00: area(s) [place] 00 every 24 Medical (twenty-fo Branch ur) hours. Apply 21mg patch daily x 6 weeks; then apply 14mg patch daily x 2 weeks; then apply 7mg patch daily x 2 weeks. Stop smoking on initiation of therapy nicotine 14 Yes [id number] 1{patch Apply 1 Univers mg/24 hr 1-14 } Patch to ity of patch 00:00: area(s) [place] 00 every 24 Medical (twenty-fo Branch ur) hours. Apply 21mg patch daily x 6 weeks; then apply 14mf patch daily x 2 weeks; then apply 7mg patch daily x 2 weeks. Stop smoking on initiation of therapy amLODIPine- 2020-08 Yes [id number] 1{capsu Take 1 Univers benazepriL 0-01 le} capsule by ity of 10-40 mg 00:00: mouth [place] per capsule 00 daily. Medica l Branch terazosin 5 2020-08 Yes [id number] 5mg Take 1 Univers mg capsule 0-01 capsule by ity of 00:00: mouth [place] 00 every Medical evening. Branch metFORMIN 2020-08 Yes [id number] 1000mg Take 1 Univers 1,000 mg 0-01 tablet by ity of tablet 00:00: mouth 2 [place] 00 (two) Medical times Branch daily with meals. TAKE ONE (1) TABLET(S) BY MOUTH EVERY TWELVE HOURS WITH MORNING AND EVENING MEALS. triamterene 2020-08 Yes [id number] 1{tbl} Take 1 Univers -hydrochlor 0-01 tablet by ity of othiazid 00:00: mouth [place] 37.5-25 mg 00 daily. Medical tablet Branch aspirin 325 2020-08 Yes [id number] 325mg Take 1 Univers mg tablet 0-01 tablet by ity o f 00:00: mouth [place] 00 daily with Medical breakfast. Branch carvediloL 2020-08 Yes [id number] 25mg Take 1 Univers 25 mg 0-01 tablet by ity of tablet 00:00: mouth 2 [place] 00 (two) Medical times Branch daily with meals. TAKE ONE (1) TABLET(S) BY MOUTH TWICE A DAY WITH FOOD. FLUoxetine 2020-08 Yes [id number] 20mg Take 1 U nivers 20 mg 0-01 capsule by ity of capsule 00:00: mouth [place] 00 daily. Medical Branch traZODone 2020-08 Yes [id number] 50mg Take 1 Uni vers 50 mg 0-01 tablet by ity of tablet 00:00: mouth at [place] 00 bedtime. Medical Branch lipase-prot 2020-08 Yes [id number] 1{capsu Take 1 Univers ease-amylas 0-01 le} capsule by it y of e 00:00: mouth 3 [place] 12,000-38,0 00 (three) Medic al 00 -60,000 times Branch unit daily with capsule meals. amLODIPine- 2020-08 Yes [id number] 1{capsu Take 1 Univers benazepriL 0-01 le} capsule by ity of 10-40 mg 00:00: mouth [place] per capsule 00 daily. Medica l Branch terazosin 5 2020-08 Yes [id number] 5mg Take 1 Univers mg capsule 0-01 capsule by ity of 00:00: mouth [place] 00 every Medical evening. Branch metFORMIN 2020-08 Yes [id number] 1000mg Take 1 Univers 1,000 mg 0-01 tablet by ity of tablet 00:00: mouth 2 [place] 00 (two) Medical times Branch daily with meals. TAKE ONE (1) TABLET(S) BY MOUTH EVERY TWELVE HOURS WITH MORNING AND EVENING MEALS. triamterene 2020-08 Yes [id number] 1{tbl} Take 1 Univers -hydrochlor 0-01 tablet by ity of othiazid 00:00: mouth [place] 37.5-25 mg 00 daily. Medical tablet Branch aspirin 325 2020-08 Yes [id number] 325mg Take 1 Univers mg tablet 0-01 tablet by ity o f 00:00: mouth [place] 00 daily with Medical breakfast. Branch carvediloL 2020-08 Yes [id number] 25mg Take 1 Univers 25 mg 0-01 tablet by ity of tablet 00:00: mouth 2 [place] 00 (two) Medical times Branch daily with meals. TAKE ONE (1) TABLET(S) BY MOUTH TWICE A DAY WITH FOOD. FLUoxetine 2020-08 Yes [id number] 20mg Take 1 U nivers 20 mg 0-01 capsule by ity of capsule 00:00: mouth [place] 00 daily. Medical Branch traZODone 2020-08 Yes [id number] 50mg Take 1 Uni vers 50 mg 0-01 tablet by ity of tablet 00:00: mouth at [place] 00 bedtime. Medical Branch lipase-prot 2020-08 Yes [id number] 1{capsu Take 1 Univers ease-amylas 0-01 le} capsule by it y of e 00:00: mouth 3 [place] 12,000-38,0 00 (three) Medic al 00 -60,000 times Branch unit daily with capsule meals. LORazepam 2 Yes 2mg Take 1 Univ ers mg tablet 1-19 tablet by ity o f 00:00: mouth 2 [place] 00 (two) Medical times Branch daily. Take one tablet 30 minutes before MRI, if needed, take 2nd tablet when arriving for MRI. LORazepam 2 Yes 2mg Take 1 Univ ers mg tablet 1-19 tablet by ity o f 00:00: mouth 2 [place] 00 (two) Medical times Branch daily. Take one tablet 30 minutes before MRI, if needed, take 2nd tablet when arriving for MRI. Miscellaneo 2019-08 Yes [id number] I10 - U [employer] [facility] 08-18 Dispense ity o f Supply Kit 00:00: blood [place] 00 pressure Medical cuff (any Branch brand), take BP at home BID Miscellaneo 2019-08 Yes [id number] I10 - U [employer] [facility] 08-18 Dispense ity o f Supply Kit 00:00: blood [place] 00 pressure Medical cuff (any Branch brand), take BP at home BID Immunizations Ordered Filled Immunization Date Status Comments Sour e Immunization Name Name SARS-COV-2 COVID-19 2020-12-17 Completed Unive rsity of MODERNA VACCINE 00:00:00 [facility] Branch SARS-COV-2 COVID-19 2020-12-17 Completed Unive rsity of MODERNA VACCINE 00:00:00 [facility] Branch SARS-COV-2 COVID-19 2020-11-19 Completed Unive rsity of MODERNA VACCINE 00:00:00 [facility] Branch SARS-COV-2 COVID-19 2020-11-19 Completed Unive rsity of MODERNA VACCINE 00:00:00 [facility] TDAP 2020-07-02 Completed University 00:00:00 [facility] Pneumococcal 2020-07-02 Completed [place] o f Polysaccharide, 00:00:00 [facility] PPSV23 (PNEUMOVAX) Branch Influenza Virus 2020-07-02 Completed Universit y of Vaccine Quad .5 mL 00:00:00 [facility] 6+ MO Branch TDAP 2020-07-02 Completed University 00:00:00 [facility] Pneumococcal 2020-07-02 Completed University o f Polysaccharide, 00:00:00 [facility] PPSV23 (PNEUMOVAX) Branch Influenza Virus 2020-07-02 Completed Universit y of Vaccine Quad .5 mL 00:00:00 [facility] 6+ MO [place] Vital Signs Vital Name Observation Time Observation Value Comments Source Systolic blood 2021-10-01 16:12:00 195 mm[Hg] Univer sity of [facility] Diastolic blood 2021-10-01 16:12:00 110 mm[Hg] Unive rsity of [facility] Branch Heart rate 2021-10-01 16:12:00 83 /min General acute hospital Body height 2021-10-01 16:07:00 165.1 cm [facility] acute hospital Body weight 2021-10-01 16:07:00 83.507 kg [facility] acute hospital BMI 2021-10-01 16:07:00 30.64 kg/m2 General acute hospital Procedures This patient has no known procedures. Encounters Start End Encounter Admission Attending Care Care Encounter Source Date/Time Date/Time Type Type Clinicians Facility Department ID 2021-11-24 2021-11-24 [id number] Univers 13:20:00 13:20:00 ZAK danelle [facility] 2021-10-12 2021-10-12 [facility] [id number] Univers 08:00:00 08:03:00 SENDIL timmy [facility] 2021-10-01 2021-10-01 [facility] [id number] Univers 10:00:00 10:32:45 Visit Anna ELLIS [id number] timmy [facility] [id number] [place] PROFESSIO [id number] Pr dical [facility] 059 [facility] 2021-10-01 2021-10-01 Out[facility] [id number] Univers 10:00:00 10:32:45 SENDIL timmy [facility] 2021-01-02 2021-01-02 Telephone [facility] [id number] 00:00:00 00:00:00 Zak Ellis [id number] [place] [id number] Professio [id number] nal 044 [facility] 2021-01-01 2021-01-01 [facility] [id number] 15:50:00 23:59:00 Encounter Zak Ellis [id number] [place] [id number] [place] [id number] 2021-01-01 2021-01-01 Office [facility] [id number] 14:12:54 15:07:47 Visit Zak Ellis [id number] [place] [id number] Professio [id number] [address] Results This patient has no known results.
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
[2021-12-14] MEDS ORDERED: BACI/NEOMYCIN/POLY OINT 15GM TOP ONE (02:01)
[2021-12-14] MEDS ORDERED: KETOROLAC 30 MG/ML INJ ONE (02:01)
[2021-12-14] MEDS ORDERED: ONDANSETRON 4 MG (ODT) TAB ONE (02:01)
[2021-12-14 03:11] VITALS: O2SAT 99
[2021-12-14 03:13] VITALS: BP 153/92
--- NOTE | 2021-12-14 22:03 | RAD REPORT ---
EXAM DESCRIPTION: CT - Head C Spine Mpr Wo Con - 12/14/2021 5:20 am CLINICAL HISTORY: 66 years, Male, fall COMPARISON: 03/10/2015. FINDINGS: Multiple transaxial tomograms of the brain were obtained from the base of the skull to the vertex without contrast. 2-D multiplanar reformats and the coronal and sagittal plane were performed and reviewed. Multiple axial CT images through the cervical spine were obtained at 2 mm slice thickness at 2 mm int erval reconstruction. In addition 2-D multiplanar reformats and the sagittal coronal plane were perfo rmed and reviewed. This exam was performed according to our departmental dose-optimization protocol, which includes auto mated exposure control, adjustment of the mA and/or kV according to patient size and/or use of iterat lisa reconstruction technique. CT head: Brain parenchyma demonstrate mild prominence of the sulci and gyri are corresponding to mild brain atrophy. There is a focal area of hypodensity within the right basal corresponding to a old la cunar infarct. There is moderate periventricular white matter changes of microvascular ischemia. Ther e is no midline shift and/or mass effect. There is no evidence for acute intracranial hemorrhage. L ateral ventricles and cisterns displace normal appearance. No intra or extra axial fluid collection s were seen. The calvarium is intact with no evidence for fracture. The visualized portions of the pa ranasal sinuses and orbits demonstrate to be clear. CT C-spine: The alignment of the vertebral bodies are normal. There is no evidence of fracture or s ubluxation. There is degenerative disc disease with decreased intervertebral disc height, anterior sp ondylosis and posterior osteophyte complex at C3/C4 C4/C5 and C5/C6. Anterior spondylosis at C7/T1. T he spinal canal demonstrate no evidence for significant stenosis. There is neural foraminal narrowing at C5/C6. There are uncovertebral degenerative changes C2-T1. There is no prevertebral soft tissue s welling. Sagittal coronal reformatted images demonstrate no subluxation or bony abnormalities. IMPRESSION: No CT evidence for acute intracranial hemorrhage. Mild brain atrophy and periventricular white matter changes of microvascular ischemia. Old lacunar infarct within the right basal ganglia. No evidence for acute fracture or subluxation of the cervical spine. Degenerative disc disease at C3/C4, C4/C5 and C5/C6 with neural foraminal narrowing at C5/C6. Electronically signed by: Gagandeep Garland MD 12/14/2021 1:32 AM CDT Due to temporary technical issues with the PACS/Fluency reporting system, reports are being signed by the in house radiologists without review as a courtesy to insure prompt reporting. The interpreting radiologist is fully responsible for the content of the report.
== END 2021-12-14 02:07 | disposition home or self-care (01) ==
LOC: ER 23:33
DX: S01.81XA Laceration without foreign body of other part of head, initial encounter (principal); S09.90XA Unspecified injury of head, initial encounter; R11.0 Nausea; W18.30XA Fall on same level, unspecified, initial encounter; Y92.89 Other specified places as the place of occurrence of the external cause; Z88.1 Allergy status to other antibiotic agents; Z86.73 Personal history of transient ischemic attack (TIA), and cerebral infarction without residual deficits; E11.9 Type 2 diabetes mellitus without complications; I10 Essential (primary) hypertension
CPT/HCPCS: 70450; 72125; 96372; 99283

== ENCOUNTER 2023-05-17 12:11 | Emergency (ER) | payer MEDICARE, OTHER ==
--- OUTSIDE RECORDS SUMMARY | 2023-05-17 12:25 | XMS REPORT | Continuity of Care Document ---
:1955 Author Organization [facility] t Address [address] [facility] [address] [place] [id number] Care Team Providers Name Role Phone Marco Church MD Primary Care Physician MARCO CHURCH Attending Clinician Unavailable VIRGINIE PEÑA Attending Clinician Unavailable Virginie Peña MD Attending Clinician Doctor Unassigned, [place] Attending Clinician Unavailable Marco Church MD Attending Clinician DIANA MIGUEL Attending Clinician Unavailable DIANA MIGUEL Attending Clinician Unavailable Joelle Rosas CRNA Attending Clinician Flora Quinones MD Attending Clinician Javed Ovalle CRNA Attending Clinician ANNA WELSH K.HDevan Attending Clinician Unavailable Anna Welsh MD K.H. Attending Clinician Kathy Song Attending Clinician KATHY JIMENEZ Attending Clinician Unavailable KATY KNOTT Attending Clinician Unavailable 2, [facility] Attending Clinician Unavailable PIERCE BALLARD Attending Clinician Unavailable PIERCE BALLARD Attending Clinician Unavailable BRENDA NASH Attending Clinician Unavailable Eliza ARVIZU, [place] Caldwell Attending Clinician Unavailable Brenda Nash MD Attending Clinician JELENA WAKEFIELD Attending Clinician Unavailable ROSEMARY URENA Attending Clinician Unavailable ROSEMARY URENA Attending Clinician Unavailable Nurse, [facility] Fam Attending Clinician Unavailable Pob, [facility] Main Attending Clinician Unavailable Jelena Wakefield OD Attending Clinician ASAD HERRON Attending Clinician Unavailable NAHID WOODY Attending Clinician Unavailable Pierce Ballard MD Attending Clinician Opal Hurt MD Attending Clinician [phone] , [facility] Echo Room 1 - Attending Clinician Unavailable Khoi Jones MD Attending Clinician Amarilys Diamond Attending Clinician VIRGINIE PEÑA Admitting Clinician Unavailable Virginie Peña MD Admitting Clinician Payers Payer Name Policy Type Policy Number Effective Date Expiration Date S ource MEDICAID OF [place] [id number] 2020 00:00:00 ER/OBS/IP MEDICARE [id number] 2021 PART B ONLY 00:00:00 [facility] [id number] 2022 PLUS 00:00:00 Problems Condition Condition Condition Status Onset Resolution Last Treating Co mments Source Name Details Category Date Date Treatment Clinician Date Colon Colon Disease Active Univers cancer cancer 8-22 [place] Encounter Encounter Disease Active Uni vers for for 6-22 [place] screening [place] colonoscop colonoscop 00 Me dical y y Branch History of History of Disease Active U nivers CVA CVA 4-06 ity of (cerebrova (cerebrova [place] sc[place] scular 00 Medical accident) accident) Bran ch RIOS RIOS Disease Active Univers (dyspnea (dyspnea 4-06 ity of on on 00:00: [place] exertion) exertion) 00 Medi brad Branch Personal Personal Disease Active Unive rs history of history of 4-06 it y of nicotine nicotine 00:00: [place] dependence dependence 00 Me dical Branch Acute Acute Disease Active 2021-08 Univers bilateral bilateral 2-16 ity of low back low back 00:00: [place] pain pain 00 Medical without without Branch sciatica sciatica Weakness Weakness Disease Active 2021-08 Unive rs of both of both 2-16 ity of lower lower 00:00: [place] extremitie extremitie 00 Me dical s s Branch Chronic Chronic Disease Active 2021-08 Univers midline midline 1-30 ity of low back low back 00:00: [place] pain with pain with 00 Medi brad right-side right-side Br anch d sciatica d sciatica Chronic Chronic Disease Active 2021-08 Univers pain pain 1-30 ity of syndrome syndrome 00:00: [place] 00 Medical Branch Pain Pain Disease Active 2021-08 Univers management management 1-30 it y of contract contract 00:00: [place] signed signed 00 Medical Branch Abdominal Abdominal Disease Active 2020-08 Uni vers [...] 00 Medical accident accident Branch (CVA) (CVA) Nicotine Nicotine Disease Active 2020-08 Unive rs dependence dependence 0-01 it y of with with 00:00: [place] current current 00 Medical use use Branch UTI UTI Disease Active Univers (urinary (urinary 6-25 ity of tract tract 00:00: [place] infection) infection) 00 Me dical due to due to Branch Enterococc Enterococc [facility] Nephrolith Nephrolith Disease Active U nivers iasis iasis 6-25 ity of 00:00: [place] 00 Medical Branch Liver Liver Disease Active Univers disease, disease, 6-25 ity of chronic, chronic, 00:00: [place] with with 00 Medical cirrhosis cirrhosis Bran ch Abdominal Abdominal Disease Active Uni vers pain, pain, 5-20 ity of acute, acute, 00:00: [place] generalize generalize 00 Me dical d d Branch Decreased Decreased Disease Active Uni vers GFR GFR 5-20 ity of 00:00: [place] 00 Medical Branch Abdominal Abdominal Disease Active Uni vers pain, pain, 5-20 ity of acute, acute, 00:00: [place] generalize generalize 00 Me dical d d Branch Asymptomat Asymptomat Disease Active U nivers ic ic 2-19 ity of hypertensi hypertensi 00:00[place] ve urgency ve urgency 00 Pr dical Branch Chronic Chronic Disease Active Univers hepatitis hepatitis 2-04 ity of C without C without 00:00: [place] hepatic hepatic 00 Medical coma coma Branch 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 2-04 ity of 00:00: [place] 00 Medical Branch Syphilis Syphilis Disease Active Unive rs in male in male 2-04 ity of 00:00: [place] 00 Medical Branch Medicare Medicare Disease Active 2019-08 Unive rs annual annual 1-18 ity of wellness wellness 00:00: [place] visit, visit, 00 Medical subsequent subsequent Br anch Flu Flu Disease Active 2019-08 Univers vaccine vaccine 1-18 ity of need need 00:00: [place] 00 Medical Branch Need for Need for Disease Active 2019-08 Unive rs pneumococc pneumococc 1-18 it y of al al 00:00: [place] [facility] Need for Disease Active 2019-08 Unive rs Tdap Tdap 1-18 ity of vaccinatio vaccinatio 00:[place] n [place] 00 Medical Branch Primary Primary Disease Active 2020- Univers insomnia insomnia 1-04 ity of 00:00: [place] 00 Medical Branch Uncontroll Uncontroll Disease Active 2020- U saraers ed ed 1-04 ity of hypertensi hypertensi 00:[place] Medical Branch Cerebrovas Cerebrovas Disease Active 2020- U [place] cular cular 1-04 ity of accident accident 00:00: [place] (CVA), (CVA), 00 Medical unspecifie unspecifie Br anch d d mechanism mechanism Memory Memory Disease Active 2019- Univers changes changes 1-04 ity of 00:00: [place] 00 Medical Branch Dyslipidem Dyslipidem Disease Active 2020- U saraers ia ia 1-04 ity of 00:00: [place] 00 Medical Branch Diabetes Diabetes Disease Active 2019- Unive rs mellitus mellitus 1-04 ity of type II, type II, 00:00: [place] non non 00 Medical insulin insulin Branch dependent dependent Tremor Tremor Disease Active 2019-08 Univers 1-04 ity of 00:00: [place] 00 Medical Branch Anxiety Anxiety Disease Active 2019-08 Univers 1-04 ity of 00:00: [place] 00 Medical Branch Mild Mild Disease Active 2019-08 Univers depression depression -04 it y of 00:00: [place] 00 Medical Branch Essential Essential Disease Active 2019-08 Uni vers hypertensi hypertensi -04 it y of on on 00:00: [place] Medical Branch Nicotine Nicotine Disease Active 2019-08 Unive rs dependence dependence 08-18 it y of , , 00:00: [place] cigarettes cigarettes 00 Me dical , with , with Branch unspecifie unspecifie d d nicotine-i nicotine-i nduced nduced disorders disorders 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-08 U nivers duced duced 08-18 ity of chronic chronic 00:00: [place] pancreatit pancreatit 00 Me dical is is Branch Need for Need for Disease Active 2019-08 Unive rs hepatitis hepatitis 08-18 ity of C C 00:00: [place] screening screening 00 [facility] brad test test Branch Allergies, Adverse Reactions, Alerts Allergy Allergy Status Severity Reaction(s) Onset Inactive Treating Comm ents Source Name Type Date Date Clinician Sulfamet Propensi Active Hives 2020-08 Univer s hoxazole ty to 0-28 ity of -Trimeth adverse 00:00: [place] oprim reaction 00 Medical s Branch SULFAMET DRUG Active Med Hives 2020-08 Univers HOXAZOLE 0-28 ity of -TRIMETH 00:00: [place] OPRIM 00 Medical Branch BACITRAC DRUG Active Med ITCHING 2019-08 Univers IN INGREDI 2-21 ity of 00:00: [place] 00 Medical Branch Bacitrac Propensi Active Itching 2019-08 Unive rs in ty to 2-21 ity of adverse 00:00: [place] reaction 00 Medical s Branch Social History Social Habit Start Date Stop Date Quantity Comments Source Gender identity Universit y of [facility] Sexual orientation Univer sity of [facility] History of tobacco Cigarette Smoker University of use [facility] History of Social 2023-05-13 2023-05-13 Univers ity of function 00:00:00 00:00:00 [facility] Alcohol intake 2023-05-13 2023-05-13 .71 /d University 00:00:00 00:00:00 [facility] Exposure to 2022-11-23 2022-12-03 Not sure University SARS-CoV-2 (event) 00:00:00 09:25:00 [facility] Tobacco use and 2022-03-05 2022-03-05 Smokeless tobacco Un iversity of exposure 00:00:00 00:00:00 non-user [facility] Cigarettes smoked 2022-03-05 2022-03-05 Univers ity of current (pack per 00:00:00 00:00:00 ) - Reported [place] Cigarette 2022-03-05 2022-03-05 University of pack-years 00:00:00 00:00:00 [facility] Tobacco Comment 2022-03-05 2022-03-05 open to trial of Uni versity of 00:00:00 00:00:00 nicotine [facility] therapy Sex [birth year] Universit y of 00:00:00 00:00:00 [facility] Smoking Status Start Date Stop Date Source Smokes tobacco daily 2022-03-05 00:00:00 Univers ity of [facility] Medications Ordered Filled Start Stop Current Ordering Indication Dosage Frequency Signature Comments Components Source Medication Medication Date Date Medication? Clinician (SIG) Name Name water for 2022- No PRN, Univers irrigation 05-13 Starting ity of irrigation 14:03: 17:06 on Tue [place] solution 00 :02 05/13/23 at Medic al 0903, Branch Until Tue05/13/23 at 1206, Routine, Intra-op simethicone 2022- No PRN, Unive rs (GAS RELIEF 05-13 Starting ity of (SIMETHICON 14:01: 17:06 on Fri Ron as E)) 40 00 :02 05/13/23 at Medical mg/0.6 mL 0901, Branch drops Until 05/13/23 at 1206, Routine, Intra-op hydralAZINE 2022- No 20mg 20 mg, Uni vers (APRESOLINE 05-13 Slow IV ity of ) injection 14:00: 13:04 [place] 20 mg 00 :00 ONCE, 1 Medical dose, On Branch Tue05/13/23 at 0900, STAT, DSU Pre-op hydralAZINE 2022- No 20mg 20 mg, Uni vers (APRESOLINE 05-13 Slow IV ity of ) injection 14:00: 13:04 [place] 20 mg 00 :00 ONCE, 1 Medical dose, On Branch Tue05/13/23 at 0900, STAT, DSU Pre-op lactated 2022- No 1000mL at 42 Unive rs ringers IV 05-13 mL/hr, ity of infusion 12:15: 13:04 1,000 mL, [place] as 1,000 mL 00 :00 IV Medical Infusion, Branch ONCE, 1 dose, On Tue05/13/23 at 0715, Routine, DSU Pre-op lactated 2022- No 1000mL at 42 Unive rs ringers IV 05-13 mL/hr, ity of infusion 12:15: 13:04 1,000 mL, [place] as 1,000 mL 00 :00 IV Medical Infusion, Branch ONCE, 1 dose, On Tue05/13/23 at 0715, Routine, DSU Pre-op TRAMADOL 50 2022-0 Yes [id number] TAKE ONE Univers mg tablet 05-13 (1) ity of 00:00: TABLET(S) [place] 00 BY MOUTH Medical EVERY Branch EIGHT HOURS NEEDED FOR PAIN (SCALE 7-10). TRAMADOL 50 2022-0 Yes [id number] TAKE ONE Univers mg tablet 05-13 (1) ity of 00:00: TABLET(S) [place] 00 BY MOUTH Medical EVERY Branch EIGHT HOURS NEEDED FOR PAIN (SCALE 7-10). TRAMADOL 50 2022-0 Yes [id number] TAKE ONE Univers mg tablet 05-13 (1) ity of 00:00: TABLET(S) [place] 00 BY MOUTH Medical EVERY Branch EIGHT HOURS NEEDED FOR PAIN (SCALE 7-10). peg-electro 2022-0 2022- No 4000mL Take 4,000 Univers lyte soln 8-22 08-23 mL by ity of 236-22.74-6 00:00: 04:59 mouth once [place] .74 -5.86 00 :00 now for 1 Medic al gram dose. Branch solution peg-electro 3-0 2023- No 4000mL Take 4,000 Univers lyte soln 8-22 08-23 mL by ity of 236-22.74-6 00:00: 04:59 mouth once [place] .74 -5.86 00 :00 now for 1 Medic al gram dose. Branch solution peg-electro 3-0 2023- No 4000mL Take 4,000 Univers lyte soln 8-22 08-23 mL by ity of 236-22.74-6 00:00: 04:59 mouth once [place] .74 -5.86 00 :00 now for 1 Medic al gram dose. Branch solution peg-electro 3-0 2023- No 4000mL Take 4,000 Univers lyte soln 8-22 08-23 mL by ity of 236-22.74-6 00:00: 04:59 mouth once [place] .74 -5.86 00 :00 now for 1 Medic al gram dose. Branch solution peg-electro 3-0 2023- No 4000mL Take 4,000 Univers lyte soln 8-22 08-23 mL by ity of 236-22.74-6 00:00: 04:59 mouth once [place] .74 -5.86 00 :00 now for 1 Medic al gram dose. Branch solution ergocalcife 0 Yes [id number] Take 1 Univers rol, 7-20 capsule by ity of vitamin d2, 00:00: mouth [place] 1,250 mcg 00 weekly. Medical (50,000 Branch unit) capsule hydrALAZINE 2022-0 Yes [id number] TAKE ONE Univers 50 mg 7-20 (1) TABLET ity of tablet 00:00: BY MOUTH 00 IN THE Medical MORNING Branch AND 1 TABLET AT NOON AND 1 TABLET IN THE EVENING. hydrALAZINE 2022-0 Yes [id number] 100mg Take 1 Univers 100 mg 7-20 tablet by ity of tablet 00:00: mouth in [place] 00 the Medical morning Branch and 1 tablet at noon and 1 tablet in the evening. glipiZIDE 2022-0 Yes [id number] TAKE ONE Univers 10 mg 7-20 (1) ity of tablet 00:00: TABLET(S) [place] 00 BY MOUTH Medical ONCE A DAY Branch BEFORE MEALS. lipase-prot 2022-0 Yes [id number] 1{capsu Take 1 Univers ease-amylas 7-20 le} capsule by it y of e 00:00: mouth in [place] 12[address]-38,0 00 the [facility] 60,000 morning Branch unit and 1 capsule capsule at noon and 1 capsule in the evening. Take with meals. buPROPion 2022-0 Yes [id number] 150mg Take 1 U nivers XL 150 mg 7-20 tablet by ity o f 24 hr 00:00: mouth in [place] tablet 00 the Medical morning Branch and 1 tablet in the evening. ergocalcife 2022-0 Yes [id number] Take 1 Univers rol, 7-20 capsule by ity of vitamin d2, 00:00: mouth [place] 1,250 mcg 00 weekly. Medical (50,000 Branch unit) capsule hydrALAZINE 2022-0 Yes [id number] TAKE ONE Univers 50 mg 7-20 (1) TABLET ity of tablet 00:00: BY MOUTH [place] 00 IN THE Medical MORNING Branch AND 1 TABLET AT NOON AND 1 TABLET IN THE EVENING. hydrALAZINE 2022-0 Yes [id number] 100mg Take 1 Univers 100 mg 7-20 tablet by ity of tablet 00:00: mouth in [place] 00 the Medical morning Branch and 1 tablet at noon and 1 tablet in the evening. glipiZIDE 2022-0 Yes [id number] TAKE ONE Univers 10 mg 7-20 (1) ity of tablet 00:00: TABLET(S) [place] 00 BY MOUTH Medical ONCE A DAY Branch BEFORE MEALS. lipase-prot 2022-0 Yes [id number] 1{capsu Take 1 Univers ease-amylas 7-20 le} capsule by it y of e 00:00: mouth in [place] 12[address]-38,0 00 the [facility] 60,000 [facility] Branch unit and 1 capsule capsule at noon and 1 capsule in the evening. Take with meals. buPROPion 2022-0 Yes [id number] 150mg Take 1 U nivers XL 150 mg 7-20 tablet by ity o f 24 hr 00:00: mouth in [place] tablet 00 the Medical morning Branch and 1 tablet in the evening. ergocalcife 2022-0 Yes [id number] Take 1 Univers rol, 7-20 capsule by ity of vitamin d2, 00:00: mouth [place] 1,250 mcg 00 weekly. Medical (50,000 Branch unit) capsule hydrALAZINE 2022-0 Yes [id number] TAKE ONE Univers 50 mg 7-20 (1) TABLET ity of tablet 00:00: BY MOUTH [place] 00 IN THE Medical MORNING Branch AND 1 TABLET AT NOON AND 1 TABLET IN THE EVENING. hydrALAZINE 2022-0 Yes [id number] 100mg Take 1 Univers 100 mg 7-20 tablet by ity of tablet 00:00: mouth in [place] 00 the Medical morning Branch and 1 tablet at noon and 1 tablet in the evening. glipiZIDE 2022-0 Yes [id number] TAKE ONE Univers 10 mg 7-20 (1) ity of tablet 00:00: TABLET(S) 00 BY MOUTH Medical ONCE A DAY Branch BEFORE MEALS. lipase-prot 2022-0 Yes [id number] 1{capsu Take 1 Univers ease-amylas 7-20 le} capsule by it y of e 00:00: mouth in [place] 12,000-38,0 00 the [facility] 00 -60,000 morning [place] unit and 1 capsule capsule at noon and 1 capsule in the evening. Take with meals. buPROPion 2022-0 Yes [id number] 150mg Take 1 U nivers XL 150 mg 7-20 tablet by ity o f 24 hr 00:00: mouth in [place] tablet 00 the Medical morning Branch and 1 tablet in the evening. ergocalcife 2022-0 Yes [id number] Take 1 Univers rol, 7-20 capsule by ity of vitamin d2, 00:00: mouth [place] 1,250 mcg 00 weekly. Medical (50,000 Branch unit) capsule hydrALAZINE 2022-0 Yes [id number] TAKE ONE Univers 50 mg 7-20 (1) TABLET ity of tablet 00:00: BY MOUTH [place] 00 IN THE Medical MORNING Branch AND 1 TABLET AT NOON AND 1 TABLET IN THE EVENING. hydrALAZINE 2022-0 Yes [id number] 100mg Take 1 Univers 100 mg 7-20 tablet by ity of tablet 00:00: mouth in [place] 00 the Medical morning Branch and 1 tablet at noon and 1 tablet in the evening. glipiZIDE 3-0 Yes [id number] TAKE ONE Univers 10 mg 7-20 (1) ity of tablet 00:00: TABLET(S) [place] 00 BY MOUTH Medical ONCE A DAY Branch BEFORE MEALS. lipase-prot 2022-0 Yes [id number] 1{capsu Take 1 Univers ease-amylas 7-20 le} capsule by it y of e 00:00: mouth in [place] 12,000-38,0 00 the [facility] 60,000 morning Branch unit and 1 capsule capsule at noon and 1 capsule in the evening. Take with meals. buPROPion 2022-0 Yes [id number] 150mg Take 1 U nivers XL 150 mg 7-20 tablet by ity o f 24 hr 00:00: mouth in [place] tablet 00 the [facility] morning Branch and 1 tablet in the evening. ergocalcife 2022-0 Yes [id number] Take 1 Univers rol, 7-20 capsule by ity of vitamin d2, 00:00: mouth [place] 1,250 mcg 00 weekly. Medical (50,000 Branch unit) capsule hydrALAZINE 2022-0 Yes [id number] TAKE ONE Univers 50 mg 7-20 (1) TABLET ity of tablet 00:00: BY MOUTH [place] 00 IN THE [facility] MORNING Branch AND 1 TABLET AT NOON AND 1 TABLET IN THE EVENING. hydrALAZINE 2022-0 Yes [id number] 100mg Take 1 Univers 100 mg 7-20 tablet by ity of tablet 00:00: mouth in [place] 00 the [facility] morning Branch and 1 tablet at noon and 1 tablet in the evening. glipiZIDE 2022-0 Yes [id number] TAKE ONE Univers 10 mg 7-20 (1) ity of tablet 00:00: TABLET(S) [place] 00 BY MOUTH Medical ONCE A DAY Branch BEFORE MEALS. lipase-prot 2022-0 Yes [id number] 1{capsu Take 1 Univers ease-amylas 7-20 le} capsule by it y of e 00:00: mouth in [place] [address]-38,0 00 the [facility] 60,000 morning Branch unit and 1 capsule capsule at noon and 1 capsule in the evening. Take with meals. buPROPion 2022-0 Yes [id number] 150mg Take 1 U nivers XL 150 mg 7-20 tablet by ity o f 24 hr 00:00: mouth in [place] tablet 00 the [facility] morning Branch and 1 tablet in the evening. ergocalcife 2022-0 Yes [id number] Take 1 Univers rol, 7-20 capsule by ity of vitamin d2, 00:00: mouth [place] 1,250 mcg 00 weekly. Medical (50,000 Branch unit) capsule hydrALAZINE 2022-0 Yes [id number] TAKE ONE Univers 50 mg 7-20 (1) TABLET ity of tablet 00:00: BY MOUTH [place] 00 IN THE Medical MORNING Branch AND 1 TABLET AT NOON AND 1 TABLET IN THE EVENING. hydrALAZINE 2022-0 Yes [id number] 100mg Take 1 Univers 100 mg 7-20 tablet by ity of tablet 00:00: mouth in [place] 00 the Medical morning Branch and 1 tablet at noon and 1 tablet in the evening. glipiZIDE 2022-0 Yes [id number] TAKE ONE Univers 10 mg 7-20 (1) ity of tablet 00:00: TABLET(S) [place] 00 BY MOUTH Medical ONCE A DAY Branch BEFORE MEALS. lipase-prot 2022-0 Yes [id number] 1{capsu Take 1 Univers ease-amylas 7-20 le} capsule by it y of e 00:00: mouth in [place] 12,000-38,0 00 the [facility] 00 -60,000 morning Branch unit and 1 capsule capsule at noon and 1 capsule in the evening. Take with meals. buPROPion 2022-0 Yes [id number] 150mg Take 1 U nivers XL 150 mg 7-20 tablet by ity o f 24 hr 00:00: mouth in [place] tablet 00 the Medical morning Branch and 1 tablet in the evening. ergocalcife 2022-0 Yes [id number] Take 1 Univers rol, 7-20 capsule by ity of vitamin d2, 00:00: mouth [place] 1,250 mcg 00 weekly. Medical (50,000 Branch unit) capsule hydrALAZINE 2022-0 Yes [id number] TAKE ONE Univers 50 mg 7-20 (1) TABLET ity of tablet 00:00: BY MOUTH [place] 00 IN THE Medical MORNING Branch AND 1 TABLET AT NOON AND 1 TABLET IN THE EVENING. hydrALAZINE 2022-0 Yes [id number] 100mg Take 1 Univers 100 mg 7-20 tablet by ity of tablet 00:00: mouth in [place] 00 the Medical morning Branch and 1 tablet at noon and 1 tablet in the evening. glipiZIDE 2022-0 Yes [id number] TAKE ONE Univers 10 mg 7-20 (1) ity of tablet 00:00: TABLET(S) [place] 00 BY MOUTH Medical ONCE A DAY Branch BEFORE MEALS. lipase-prot 2022-0 Yes [id number] 1{capsu Take 1 Univers ease-amylas 7-20 le} capsule by it y of e 00:00: mouth in [place] 12,000-38,0 00 the Medical 00 -60,000 morning Branch unit and 1 capsule capsule at noon and 1 capsule in the evening. Take with meals. buPROPion 2022-0 Yes [id number] 150mg Take 1 U nivers XL 150 mg 7-20 tablet by ity o f 24 hr 00:00: mouth in [place] tablet 00 the Medical morning Branch and 1 tablet in the evening. ergocalcife 2022-0 Yes [id number] Take 1 Univers rol, 7-20 capsule by ity of vitamin d2, 00:00: mouth [place] 1,250 mcg 00 weekly. Medical (50,000 Branch unit) capsule hydrALAZINE 2022-0 Yes [id number] TAKE ONE Univers 50 mg 7-20 (1) TABLET ity of tablet 00:00: BY MOUTH [place] 00 IN THE Medical MORNING Branch AND 1 TABLET AT NOON AND 1 TABLET IN THE EVENING. hydrALAZINE 2022-0 Yes [id number] 100mg Take 1 Univers 100 mg 7-20 tablet by ity of tablet 00:00: mouth in [place] 00 the Medical morning Branch and 1 tablet at noon and 1 tablet in the evening. glipiZIDE 2022-0 Yes [id number] TAKE ONE Univers 10 mg 7-20 (1) ity of tablet 00:00: TABLET(S) [place] 00 BY MOUTH Medical ONCE A DAY Branch BEFORE MEALS. lipase-prot 2022-0 Yes [id number] 1{capsu Take 1 Univers ease-amylas 7-20 le} capsule by it y of e 00:00: mouth in [place] 12,000-38,0 00 the Medical 00 -60,000 morning Branch unit and 1 capsule capsule at noon and 1 capsule in the evening. Take with meals. buPROPion 3-0 Yes [id number] 150mg Take 1 U nivers XL 150 mg 7-20 tablet by ity o f 24 hr 00:00: mouth in [place] tablet 00 the Medical morning Branch and 1 tablet in the evening. ergocalcife 2023-0 Yes [id number] Take 1 Univers rol, 7-20 capsule by ity of vitamin d2, 00:00: mouth [place] 1,250 mcg 00 weekly. Medical (50,000 Branch unit) capsule hydrALAZINE 2022-0 Yes [id number] TAKE ONE Univers 50 mg 7-20 (1) TABLET ity of tablet 00:00: BY MOUTH [place] 00 IN THE Medical MORNING Branch AND 1 TABLET AT NOON AND 1 TABLET IN THE EVENING. hydrALAZINE 2022-0 Yes [id number] 100mg Take 1 Univers 100 mg 7-20 tablet by ity of tablet 00:00: mouth in [place] 00 the Medical morning Branch and 1 tablet at noon and 1 tablet in the evening. glipiZIDE 2022-0 Yes [id number] TAKE ONE Univers 10 mg 7-20 (1) ity of tablet 00:00: TABLET(S) [place] 00 BY MOUTH Medical ONCE A DAY Branch BEFORE MEALS. lipase-prot 2022-0 Yes [id number] 1{capsu Take 1 Univers ease-amylas 7-20 le} capsule by it y of e 00:00: mouth in [place] 12,000-38,0 00 the [facility] 00 -60,000 morning Branch unit and 1 capsule capsule at noon and 1 capsule in the evening. Take with meals. buPROPion 2022-0 Yes [id number] 150mg Take 1 U nivers XL 150 mg 7-20 tablet by ity o f 24 hr 00:00: mouth in [place] tablet 00 the Medical morning Branch and 1 tablet in the evening. ergocalcife 2022-0 Yes [id number] Take 1 Univers rol, 7-20 capsule by ity of vitamin d2, 00:00: mouth [place] 1,250 mcg 00 weekly. Medical (50,000 Branch unit) capsule hydrALAZINE 2022-0 Yes [id number] TAKE ONE Univers 50 mg 7-20 (1) TABLET ity of tablet 00:00: BY MOUTH [place] 00 IN THE Medical MORNING Branch AND 1 TABLET AT NOON AND 1 TABLET IN THE EVENING. hydrALAZINE 2022-0 Yes [id number] 100mg Take 1 Univers 100 mg 7-20 tablet by ity of tablet 00:00: mouth in [place] 00 the Medical morning Branch and 1 tablet at noon and 1 tablet in the evening. glipiZIDE 2022-0 Yes [id number] TAKE ONE Univers 10 mg 7-20 (1) ity of tablet 00:00: TABLET(S) 00 BY MOUTH Medical ONCE A DAY Branch BEFORE MEALS. lipase-prot 2022-0 Yes [id number] 1{capsu Take 1 Univers ease-amylas 7-20 le} capsule by it y of e 00:00: mouth in [place] 12,000-38,0 00 the Medical 60,000 morning Branch unit and 1 capsule capsule at noon and 1 capsule in the evening. Take with meals. buPROPion 3-0 Yes [id number] 150mg Take 1 U nivers XL 150 mg 7-20 tablet by ity o f 24 hr 00:00: mouth in [place] tablet 00 the Medical morning Branch and 1 tablet in the evening. ergocalcife 2022-0 Yes [id number] Take 1 [facility] rol, 7-20 capsule by ity of vitamin d2, 00:00: mouth [place] 1,250 mcg 00 weekly. Medical (50,000 Branch unit) capsule hydrALAZINE 2022-0 Yes [id number] TAKE ONE [facility] 50 mg 7-20 (1) TABLET ity of tablet 00:00: BY MOUTH [place] 00 IN THE Medical MORNING Branch AND 1 TABLET AT NOON AND 1 TABLET IN THE EVENING. hydrALAZINE 2022-0 Yes [id number] 100mg Take 1 [facility] 100 mg 7-20 tablet by ity of tablet 00:00: mouth in [place] 00 the Medical morning Branch and 1 tablet at noon and 1 tablet in the evening. glipiZIDE 2022-0 Yes [id number] TAKE ONE [facility] 10 mg 7-20 (1) ity of tablet 00:00: TABLET(S) [place] 00 BY MOUTH Medical ONCE A DAY Branch BEFORE MEALS. lipase-prot 2022-0 Yes [id number] 1{capsu Take 1 [facility] ease-amylas 7-20 le} capsule by it y of e 00:00: mouth in [place] 12,000-38,0 00 the Medical 60,000 morning Branch unit and 1 capsule capsule at noon and 1 capsule in the evening. Take with meals. buPROPion 2023-0 Yes [id number] 150mg Take 1 U nivers XL 150 mg 7-20 tablet by ity o f 24 hr 00:00: mouth in [place] tablet 00 the Medical morning Branch and 1 tablet in the evening. ergocalcife 2023-0 Yes [id number] Take 1 [facility] rol, 7-20 capsule by ity of vitamin d2, 00:00: mouth [place] 1,250 mcg 00 weekly. Medical (50,000 Branch unit) capsule hydrALAZINE 3-0 Yes [id number] 100mg Take 1 [facility] 100 mg 7-20 tablet by ity of tablet 00:00: mouth in [place] 00 the Medical morning Branch and 1 tablet at noon and 1 tablet in the evening. glipiZIDE 2022-0 Yes [id number] TAKE ONE [facility] 10 mg 7-20 (1) ity of tablet 00:00: TABLET(S) 00 BY MOUTH Medical ONCE A DAY Branch BEFORE MEALS. lipase-prot 2022-0 Yes [id number] 1{capsu Take 1 [facility] ease-amylas 7-20 le} capsule by it y of e 00:00: mouth in [place] 12,000-38,0 00 the [facility] unit and 1 capsule capsule at noon and 1 capsule in the evening. Take with meals. buPROPion 2022-0 Yes [id number] 150mg Take 1 U nivers XL 150 mg 7-20 tablet by ity o f 24 hr 00:00: mouth in [place] tablet 00 the Medical morning Branch and 1 tablet in the evening. ergocalcife 3-0 Yes [id number] Take 1 [facility] rol, 7-20 capsule by ity of vitamin d2, 00:00: mouth [place] 1,250 mcg 00 weekly. Medical (50,000 Branch unit) capsule hydrALAZINE 3-0 Yes [id number] 100mg Take 1 [facility] 100 mg 7-20 tablet by ity of tablet 00:00: mouth in [place] 00 the Medical morning Branch and 1 tablet at noon and 1 tablet in the evening. glipiZIDE 3-0 Yes [id number] TAKE ONE [facility] 10 mg 7-20 (1) ity of tablet 00:00: TABLET(S) [place] 00 BY MOUTH Medical ONCE A DAY Branch BEFORE MEALS. lipase-prot 3-0 Yes [id number] 1{capsu Take 1 [facility] ease-amylas 7-20 le} capsule by it y of e 00:00: mouth in [place] 12,000-38,0 00 the [facility] morning Branch unit and 1 capsule capsule at noon and 1 capsule in the evening. Take with meals. buPROPion 2023-0 Yes [id number] 150mg Take 1 U nivers XL 150 mg 7-20 tablet by ity o f 24 hr 00:00: mouth in [place] tablet 00 the Medical morning Branch and 1 tablet in the evening. ergocalcife 2023-0 Yes [id number] Take 1 [facility] rol, 7-20 capsule by ity of vitamin d2, 00:00: mouth [place] 1,250 mcg 00 weekly. Medical (50,000 Branch unit) capsule hydrALAZINE 2023-0 Yes [id number] 100mg Take 1 [facility] 100 mg 7-20 tablet by ity of tablet 00:00: mouth in [place] 00 the Medical morning Branch and 1 tablet at noon and 1 tablet in the evening. glipiZIDE 3-0 Yes [id number] TAKE ONE [facility] 10 mg 7-20 (1) ity of tablet 00:00: TABLET(S) [place] 00 BY MOUTH Medical ONCE A DAY Branch BEFORE MEALS. lipase-prot 2022-0 Yes [id number] 1{capsu Take 1 [facility] ease-amylas 7-20 le} capsule by it y of e 00:00: mouth in [place] 12,000-38,0 00 the Medical 00 -60,000 morning Branch unit and 1 capsule capsule at noon and 1 capsule in the evening. Take with meals. buPROPion 2023-0 Yes [id number] 150mg Take 1 U nivers XL 150 mg 7-20 tablet by ity o f 24 hr 00:00: mouth in [place] tablet 00 the Medical morning Branch and 1 tablet in the evening. ergocalcife 2023-0 Yes [id number] Take 1 [facility] rol, 7-20 capsule by ity of vitamin d2, 00:00: mouth [place] 1,250 mcg 00 weekly. Medical (50,000 Branch unit) capsule hydrALAZINE 2023-0 Yes [id number] 100mg Take 1 [facility] 100 mg 7-20 tablet by ity of tablet 00:00: mouth in [place] 00 the Medical morning Branch and 1 tablet at noon and 1 tablet in the evening. glipiZIDE 2023-0 Yes [id number] TAKE ONE [facility] 10 mg 7-20 (1) ity of tablet 00:00: TABLET(S) [place] 00 BY MOUTH Medical ONCE A DAY Branch BEFORE MEALS. lipase-prot 2022-0 Yes [id number] 1{capsu Take 1 [facility] ease-amylas 7-20 le} capsule by it y of e 00:00: mouth in [place] 12,000-38,0 00 the Medical 00 -60,000 morning Branch unit and 1 capsule capsule at noon and 1 capsule in the evening. Take with meals. buPROPion 2022-0 Yes [id number] 150mg Take 1 U nivers XL 150 mg 7-20 tablet by ity o f 24 hr 00:00: mouth in [place] tablet 00 the Medical morning Branch and 1 tablet in the evening. ergocalcife 2022-0 Yes [id number] Take 1 [facility] rol, 7-20 capsule by ity of vitamin d2, 00:00: mouth [place] 1,250 mcg 00 weekly. Medical (50,000 Branch unit) capsule hydrALAZINE 2022-0 Yes [id number] 100mg Take 1 [facility] 100 mg 7-20 tablet by ity of tablet 00:00: mouth in [place] 00 the Medical morning Branch and 1 tablet at noon and 1 tablet in the evening. glipiZIDE 2022-0 Yes [id number] TAKE ONE [facility] 10 mg 7-20 (1) ity of tablet 00:00: TABLET(S) [place] 00 BY MOUTH Medical ONCE A DAY Branch BEFORE MEALS. lipase-prot 2022-0 Yes [id number] 1{capsu Take 1 [facility] ease-amylas 7-20 le} capsule by it y of e 00:00: mouth in [place] 12,000-38,0 00 the [facility] -60,000 morning Branch unit and 1 capsule capsule at noon and 1 capsule in the evening. Take with meals. buPROPion 2022-0 Yes [id number] 150mg Take 1 U nivers XL 150 mg 7-20 tablet by ity o f 24 hr 00:00: mouth in [place] tablet 00 the Medical morning Branch and 1 tablet in the evening. hydrALAZINE 2022-0 2022- No [id number] TAKE ONE [facility] 50 mg 7-20 -29 (1) TABLET ity of tablet 00:00: 00:00 BY MOUTH [place] 00 :00 IN THE Medical MORNING Branch AND 1 TABLET AT NOON AND 1 TABLET IN THE EVENING. hydrALAZINE 2022-0 2022- No [id number] TAKE ONE [facility] 50 mg 7-20 09- (1) TABLET ity of tablet 00:00: 00:00 BY MOUTH [place] 00 :00 IN THE Medical MORNING Branch AND 1 TABLET AT NOON AND 1 TABLET IN THE EVENING. hydrALAZINE 2023-0 3- No [id number] TAKE ONE [facility] 50 mg 7-20 - (1) TABLET ity of tablet 00:00: 00:00 BY MOUTH [place] 00 :00 IN THE Medical MORNING Branch AND 1 TABLET AT NOON AND 1 TABLET IN THE EVENING. hydrALAZINE 3-0 3- No [id number] TAKE ONE [facility] 50 mg 7-20 - (1) TABLET ity of tablet 00:00: 00:00 BY MOUTH [place] 00 :00 IN THE Medical MORNING Branch AND 1 TABLET AT NOON AND 1 TABLET IN THE EVENING. peg-electro 2023-0 2023- No 4000mL Take 4,000 Univers lyte soln 6-22 06-25 mL by ity of 236-22.74-6 00:00: 04:59 mouth in [place] .74 -5.86 00 :00 the Medical gram morning Branch solution for 2 days. peg-electro 2023-0 2023- No 4000mL Take 4,000 [facility] lyte soln 6-22 06-25 mL by ity of 236-22.74-6 00:00: 04:59 mouth in [place] .74 -5.86 00 :00 the Medical gram morning Branch solution for 2 days. peg-electro 2023-0 2023- No 4000mL Take 4,000 [facility] lyte soln 6-22 06-25 mL by ity of 236-22.74-6 00:00: 04:59 mouth in [place] .74 -5.86 00 :00 the Medical gram morning Branch solution for 2 days. peg-electro 2023-0 2023- No 4000mL Take 4,000 [facility] lyte soln 6-22 06-25 mL by ity of 236-22.74-6 00:00: 04:59 mouth in [place] .74 -5.86 00 :00 the Medical gram morning Branch solution for 2 days. lactated 2023-0 Yes 1000mL at 100 Unive rs ringers IV 6-20 mL/hr, ity of infusion 14:30: 1,000 mL, [place] 1,000 mL 00 IV Medical Infusion, Branch CONTINUOUS , Starting on Tue02/01/23 at 0930, Until Discontinu ed, Routine, PACU lactated 2022- No 1000mL at 100 Univ ers ringers IV 02-01 06-20 mL/hr, ity of infusion 14:30: 17:00 1,000 mL, [place] 1,000 mL 00 :44 IV Medical Infusion, Branch CONTINUOUS , Starting on Tue02/01/23 at 0930, Until Tue02/01/23 at 1200, Routine, PACU ondansetron Yes 4mg 4 mg, Slow Univers (ZOFRAN -20 IV Push, ity of (PF)) 14:16: PRN, 1 [place] injection 4 01 dose, Medical mg Starting Branch on Tue02/01/23 at 0916, Until Discontinu ed, Routine, Nausea and Vomiting (N/V), PACU ondansetron 2022- No 4mg 4 mg, Slow Univers (ZOFRAN 02-01-20 IV Push, ity of (PF)) 14:16: 17:00 PRN, 1 [place] injection 4 01 :44 dose, Medical mg Starting Branch on Tue02/01/23 at 0916, Until Tue02/01/23 at 1200, Routine, Nausea and Vomiting (N/V), PACU water for Yes PRN, Univers irrigation 02-01 Starting ity o f irrigation 13:59: on Tue [place] solution 00 02/01/23 at Medic al 0859, Branch Until Discontinu ed, Routine, Intra-op simethicone Yes PRN, Univer s (GAS RELIEF 02-01 Starting ity of (SIMETHICON 13:59: on Tue [place] E)) 40 00 02/01/23 at Medical mg/0.6 mL 0859, Branch drops Until Discontinu ed, Routine, Intra-op water for 2022- No PRN, Univers irrigation 02-01-20 Starting ity of irrigation 13:59: 17:00 on Tue [place] solution 00 :44 02/01/23 at Medic al 0859, Branch Until Tue02/01/23 at 1200, Routine, Intra-op simethicone 2022- No PRN, Unive rs (GAS RELIEF 02-01-20 Starting ity of (SIMETHICON 13:59: 17:00 on Tue [place] E)) 40 00 :44 02/01/23 at Medical mg/0.6 mL 0859, Branch drops Until Tue02/01/23 at 1200, Routine, Intra-op GAVILYTE-G 2022- No TAKE 4,000 [facility] 236-22.74-6 6-07 06-20 ML BY ity of .74 -5.86 00:00: 00:00 MOUTH ONCE [place] gram 00 :00 NOW FOR 1 Medical solution DOSE. Branch GAVILYTE-G 2022- No TAKE 4,000 [facility] 236-22.74-6 6-07 06-20 ML BY ity of .74 -5.86 00:00: 00:00 MOUTH ONCE [place] gram 00 :00 NOW FOR 1 Medical solution DOSE. Branch peg-electro 2022- No 4000mL Take 4,000 [facility] lyte soln 6-07 06-08 mL by ity of (GOLYTELY) 00:00: 04:59 mouth once [place] 236-22.74-6 00 :00 now for 1 Med ical .74 -5.86 dose. Branch gram solution ergocalcife Yes [id number] Take 1 [facility] rol, 5-29 capsule by ity of vitamin d2, 00:00: mouth [place] 1,250 mcg 00 weekly. Medical (50,000 Branch unit) capsule calcium Yes [id number] 500mg Take 1 Uni vers carbonate 5-29 tablet by ity o f 500 mg 00:00: mouth in [place] calcium 00 the Medical (1,250 mg) morning. Branc h tablet B Yes [id number] 1{tbl} Take 1 Univ ers Complex-Fol 5-29 tablet by ity of ic Acid (B 00:00: mouth [place] COMPLEX 1, 00 the Medical WITH FOLIC morning. Branc h ACID,) 0.4 mg Tab ergocalcife Yes [id number] Take 1 [facility] rol, 5-29 capsule by ity of vitamin d2, 00:00: mouth [place] 1,250 mcg 00 weekly. Medical (50,000 Branch unit) capsule calcium 2023-0 Yes [id number] 500mg Take 1 Uni vers carbonate 5-29 tablet by ity o f 500 mg 00:00: mouth in [place] calcium 00 the Medical (1,250 mg) morning. Branc h tablet B 3-0 Yes [id number] 1{tbl} Take 1 Univ ers Complex-Fol 5-29 tablet by ity of ic Acid (B 00:00: mouth [place] COMPLEX 1, 00 the Medical WITH FOLIC morning. Branc h ACID,) 0.4 mg Tab ergocalcife 2023-0 Yes [id number] Take 1 [facility] rol, 5-29 capsule by ity of vitamin d2, 00:00: mouth [place] 1,250 mcg 00 weekly. Medical (50,000 Branch unit) capsule calcium 2023-0 Yes [id number] 500mg Take 1 Uni vers carbonate 5-29 tablet by ity o f 500 mg 00:00: mouth in [place] calcium 00 the Medical (1,250 mg) morning. Branc h tablet B 2022-0 Yes [id number] 1{tbl} Take 1 Univ ers Complex-Fol 5-29 tablet by ity of ic Acid (B 00:00: mouth [place] COMPLEX 1, 00 the Medical WITH FOLIC morning. Branc h ACID,) 0.4 mg Tab ergocalcife 2023-0 Yes [id number] Take 1 [facility] rol, 5-29 capsule by ity of vitamin d2, 00:00: mouth [place] 1,250 mcg 00 weekly. Medical (50,000 Branch unit) capsule calcium 2023-0 Yes [id number] 500mg Take 1 Uni vers carbonate 5-29 tablet by ity o f 500 mg 00:00: mouth in [place] calcium 00 the Medical (1,250 mg) morning. Branc h tablet B 2023-0 Yes [id number] 1{tbl} Take 1 Univ ers Complex-Fol 5-29 tablet by ity of ic Acid (B 00:00: mouth [place] COMPLEX 1, 00 the Medical WITH FOLIC morning. Branc h ACID,) 0.4 mg Tab ergocalcife 2023-0 Yes [id number] Take 1 [facility] rol, 5-29 capsule by ity of vitamin d2, 00:00: mouth [place] 1,250 mcg 00 weekly. Medical (50,000 Branch unit) capsule calcium 2023-0 Yes [id number] 500mg Take 1 Uni vers carbonate 5-29 tablet by ity o f 500 mg 00:00: mouth in [place] calcium 00 the Medical (1,250 mg) morning. Branc h tablet B 2023-0 Yes [id number] 1{tbl} Take 1 Univ ers Complex-Fol 5-29 tablet by ity of ic Acid (B 00:00: mouth [place] COMPLEX 1, 00 the Medical WITH FOLIC morning. Branc h ACID,) 0.4 mg Tab ergocalcife 2023-0 Yes [id number] Take 1 [facility] rol, 5-29 capsule by ity of vitamin d2, 00:00: mouth [place] 1,250 mcg 00 weekly. Medical (50,000 Branch unit) capsule calcium 2023-0 Yes [id number] 500mg Take 1 Uni vers carbonate 5-29 tablet by ity o f 500 mg 00:00: mouth in [place] calcium 00 the Medical (1,250 mg) morning. Branc h tablet B 3-0 Yes [id number] 1{tbl} Take 1 Univ ers Complex-Fol 5-29 tablet by ity of ic Acid (B 00:00: mouth [place] COMPLEX 1, 00 the Medical WITH FOLIC morning. Branc h ACID,) 0.4 mg Tab ergocalcife 2023-0 Yes [id number] Take 1 [facility] rol, 5-29 capsule by ity of vitamin d2, 00:00: mouth [place] 1,250 mcg 00 weekly. Medical (50,000 Branch unit) capsule calcium 2023-0 Yes [id number] 500mg Take 1 Uni vers carbonate 5-29 tablet by ity o f 500 mg 00:00: mouth in [place] calcium 00 the Medical (1,250 mg) morning. Branc h tablet B 2023-0 Yes [id number] 1{tbl} Take 1 Univ ers Complex-Fol 5-29 tablet by ity of ic Acid (B 00:00: mouth [place] COMPLEX 1, 00 the Medical WITH FOLIC morning. Branc h ACID,) 0.4 mg Tab ergocalcife 2023-0 Yes [id number] Take 1 [facility] rol, 5-29 capsule by ity of vitamin d2, 00:00: mouth [place] 1,250 mcg 00 weekly. Medical (50,000 Branch unit) capsule calcium 2023-0 Yes [id number] 500mg Take 1 Uni vers carbonate 5-29 tablet by ity o f 500 mg 00:00: mouth in [place] calcium 00 the Medical (1,250 mg) morning. Branc h tablet B 2023-0 Yes [id number] 1{tbl} Take 1 Univ ers Complex-Fol 5-29 tablet by ity of ic Acid (B 00:00: mouth [place] COMPLEX 1, 00 the Medical WITH FOLIC morning. Branc h ACID,) 0.4 mg Tab ergocalcife 2023-0 Yes [id number] Take 1 [facility] rol, 5-29 capsule by ity of vitamin d2, 00:00: mouth [place] 1,250 mcg 00 weekly. Medical (50,000 Branch unit) capsule calcium 2023-0 Yes [id number] 500mg Take 1 Uni vers carbonate 5-29 tablet by ity o f 500 mg 00:00: mouth in [place] calcium 00 the Medical (1,250 mg) morning. Branc h tablet B 3-0 Yes [id number] 1{tbl} Take 1 Univ ers Complex-Fol 5-29 tablet by ity of ic Acid (B 00:00: mouth [place] COMPLEX 1, 00 the Medical WITH FOLIC morning. Branc h ACID,) 0.4 mg Tab ergocalcife 2023-0 Yes [id number] Take 1 [facility] rol, 5-29 capsule by ity of vitamin d2, 00:00: mouth [place] 1,250 mcg 00 weekly. Medical (50,000 Branch unit) capsule calcium 2023-0 Yes [id number] 500mg Take 1 Uni vers carbonate 5-29 tablet by ity o f 500 mg 00:00: mouth in [place] calcium 00 the Medical (1,250 mg) morning. Branc h tablet B 2023-0 Yes [id number] 1{tbl} Take 1 Univ ers Complex-Fol 5-29 tablet by ity of ic Acid (B 00:00: mouth [place] COMPLEX 1, 00 the Medical WITH FOLIC morning. Branc h ACID,) 0.4 mg Tab ergocalcife 2023-0 Yes [id number] Take 1 [facility] rol, 5-29 capsule by ity of vitamin d2, 00:00: mouth [place] 1,250 mcg 00 weekly. Medical (50,000 Branch unit) capsule calcium 3-0 Yes [id number] 500mg Take 1 Uni vers carbonate 5-29 tablet by ity o f 500 mg 00:00: mouth in [place] calcium 00 the Medical (1,250 mg) morning. Branc h tablet B 2022-0 Yes [id number] 1{tbl} Take 1 Univ ers Complex-Fol 5-29 tablet by ity of ic Acid (B 00:00: mouth [place] COMPLEX 1, the Medical WITH FOLIC morning. Branc h ACID,) 0.4 mg Tab calcium 3-0 Yes [id number] 500mg Take 1 Uni vers carbonate 5-29 tablet by ity o f 500 mg 00:00: mouth in [place] calcium 00 the Medical (1,250 mg) morning. Branc h tablet B 2022-0 Yes [id number] 1{tbl} Take 1 Univ ers Complex-Fol 5-29 tablet by ity of ic Acid (B 00:00: mouth [place] COMPLEX 1, the Medical WITH FOLIC morning. Branc h ACID,) 0.4 mg Tab calcium 2022-0 Yes [id number] 500mg Take 1 Uni vers carbonate 5-29 tablet by ity o f 500 mg 00:00: mouth in [place] calcium 00 the Medical (1,250 mg) morning. Branc h tablet B 2022-0 Yes [id number] 1{tbl} Take 1 Univ ers Complex-Fol 5-29 tablet by ity of ic Acid (B 00:00: mouth [place] COMPLEX 1, the Medical WITH FOLIC morning. Branc h ACID,) 0.4 mg Tab calcium 3-0 Yes [id number] 500mg Take 1 Uni vers carbonate 5-29 tablet by ity o f 500 mg 00:00: mouth in [place] calcium 00 the Medical (1,250 mg) morning. Branc h tablet B 2022-0 Yes [id number] 1{tbl} Take 1 Univ ers Complex-Fol 5-29 tablet by ity of ic Acid (B 00:00: mouth in [place] COMPLEX 1, 00 the Medical WITH FOLIC morning. Branc h ACID,) 0.4 mg Tab calcium 3-0 Yes [id number] 500mg Take 1 Uni vers carbonate 5-29 tablet by ity o f 500 mg 00:00: mouth in [place] calcium 00 the Medical (1,250 mg) morning. Branc h tablet B 2022-0 Yes [id number] 1{tbl} Take 1 Univ ers Complex-Fol 5-29 tablet by ity of ic Acid (B 00:00: mouth in [place] COMPLEX 1, 00 the Medical WITH FOLIC morning. Branc h ACID,) 0.4 mg Tab calcium 3-0 Yes [id number] 500mg Take 1 Uni vers carbonate 5-29 tablet by ity o f 500 mg 00:00: mouth in [place] calcium 00 the Medical (1,250 mg) morning. Branc h tablet B 2022-0 Yes [id number] 1{tbl} Take 1 Univ ers Complex-Fol 5-29 tablet by ity of ic Acid (B 00:00: mouth in [place] COMPLEX 1, the Medical WITH FOLIC morning. Branc h ACID,) 0.4 mg Tab calcium 3-0 Yes [id number] 500mg Take 1 Uni vers carbonate 5-29 tablet by ity o f 500 mg 00:00: mouth in [place] calcium 00 the Medical (1,250 mg) morning. Branc h tablet B 2022-0 Yes [id number] 1{tbl} Take 1 Univ ers Complex-Fol 5-29 tablet by ity of ic Acid (B 00:00: mouth in [place] COMPLEX 1, the Medical WITH FOLIC morning. Branc h ACID,) 0.4 mg Tab calcium 3-0 Yes [id number] 500mg Take 1 [facility] vers carbonate 5-29 tablet by ity o f 500 mg 00:00: mouth in [place] calcium 00 the Medical (1,250 mg) morning. Branc h tablet B 2022-0 Yes [id number] 1{tbl} Take 1 Univ ers Complex-Fol 5-29 tablet by ity of ic Acid (B 00:00: mouth in [place] COMPLEX 1, 00 the Medical WITH FOLIC morning. Branc h ACID,) 0.4 mg Tab calcium 3-0 Yes [id number] 500mg Take 1 [facility] vers carbonate 5-29 tablet by ity o f 500 mg 00:00: mouth in [place] calcium 00 the Medical (1,250 mg) morning. Branc h tablet B 2022-0 Yes [id number] 1{tbl} Take 1 Univ ers Complex-Fol 5-29 tablet by ity of ic Acid (B 00:00: mouth in [place] COMPLEX 1, the Medical WITH FOLIC morning. Branc h ACID,) 0.4 mg Tab calcium 2023-0 Yes [id number] 500mg Take 1 [facility] vers carbonate 5-29 tablet by ity o f 500 mg 00:00: mouth in [place] calcium 00 the Medical (1,250 mg) morning. Branc h tablet B 3-0 Yes [id number] 1{tbl} Take 1 Univ ers Complex-Fol 5-29 tablet by ity of ic Acid (B 00:00: mouth in [place] COMPLEX 1, the Medical WITH FOLIC morning. Branc h ACID,) 0.4 mg Tab calcium 2023-0 Yes [id number] 500mg Take 1 [facility] vers carbonate 5-29 tablet by ity o f 500 mg 00:00: mouth in [place] calcium 00 the Medical (1,250 mg) morning. Branc h tablet B 2022-0 Yes [id number] 1{tbl} Take 1 Univ ers Complex-Fol 5-29 tablet by ity of ic Acid (B 00:00: mouth in [place] COMPLEX the Medical WITH FOLIC morning. Branc h ACID,) 0.4 mg Tab calcium 3-0 Yes [id number] 500mg Take 1 [facility] vers carbonate 5-29 tablet by ity o f 500 mg 00:00: mouth in [place] calcium 00 the Medical (1,250 mg) morning. Branc h tablet B 2022-0 Yes [id number] 1{tbl} Take 1 Univ ers Complex-Fol 5-29 tablet by ity of ic Acid (B 00:00: mouth in [place] COMPLEX 1 the Medical WITH FOLIC morning. Branc h ACID,) 0.4 mg Tab calcium 2023-0 Yes [id number] 500mg Take 1 [facility] vers carbonate 5-29 tablet by ity o f 500 mg 00:00: mouth in [place] calcium 00 the Medical (1,250 mg) morning. Branc h tablet B 3-0 Yes [id number] 1{tbl} Take 1 Univ ers Complex-Fol 5-29 tablet by ity of ic Acid (B 00:00: mouth in [place] COMPLEX 1, the Medical WITH FOLIC morning. Branc h ACID,) 0.4 mg Tab calcium 2023-0 Yes [id number] 500mg Take 1 [facility] vers carbonate 5-29 tablet by ity o f 500 mg 00:00: mouth in [place] calcium 00 the Medical (1,250 mg) morning. Branc h tablet calcium 3-0 Yes [id number] 500mg Take 1 [facility] vers carbonate 5-29 tablet by ity o f 500 mg 00:00: mouth in [place] calcium 00 the Medical (1,250 mg) morning. Branc h tablet calcium 3-0 Yes [id number] 500mg Take 1 [facility] vers carbonate 5-29 tablet by ity o f 500 mg 00:00: mouth in [place] calcium 00 the Medical (1,250 mg) morning. Branc h tablet calcium 3-0 Yes [id number] 500mg Take 1 [facility] vers carbonate 5-29 tablet by ity o f 500 mg 00:00: mouth in [place] calcium 00 the Medical (1,250 mg) morning. Branc h tablet calcium 3-0 Yes [id number] 500mg Take 1 [facility] vers carbonate 5-29 tablet by ity o f 500 mg 00:00: mouth in [place] calcium 00 the Medical (1,250 mg) morning. Branc h tablet B 2022-2022- No [id number] 1{tbl} Take 1 Uni vers Complex-Fol 5-29 09-29 tablet by it y of ic Acid (B 00:00: 00:00 mouth in [place] COMPLEX 1, 00 :00 the Medical WITH FOLIC morning. Branc h ACID,) 0.4 mg Tab B 2022- No [id number] 1{tbl} Take 1 Uni vers Complex-Fol 5-29 09-29 tablet by it y of ic Acid (B 00:00: 00:00 mouth in [place] COMPLEX 1, 00 :00 the Medical WITH FOLIC morning. Branc h ACID,) 0.4 mg Tab B 2022-2022- No [id number] 1{tbl} Take 1 [facility] vers Complex-Fol 5-29 09-29 tablet by it y of ic Acid (B 00:00: 00:00 mouth in [place] COMPLEX 1, 00 :00 the Medical WITH FOLIC morning. Branc h ACID,) 0.4 mg Tab B 2022-2022- No [id number] 1{tbl} Take 1 [facility] vers Complex-Fol 5-29 09-29 tablet by it y of ic Acid (B 00:00: 00:00 mouth in [place] COMPLEX 1, 00 :00 the Medical WITH FOLIC morning. Branc h ACID,) 0.4 mg Tab ergocalcife 2022-0 3- No [id number] Take 1 [facility] rol, 5-29 07-20 capsule by ity of vitamin d2, 00:00: 00:00 [place] 1,250 mcg 00 :00 weekly. Medical (50,000 Branch unit) capsule ergocalcife 2022-0 2022- No [id number] Take 1 [facility] rol, 5- 07-20 capsule by ity of vitamin d2, 00:00: 00:00 mouth [place] 1,250 mcg 00 :00 weekly. Medical (50,000 Branch unit) capsule ergocalcife 2022-0 202- No [id number] Take 1 [facility] rol, 5-29 07-20 capsule by ity of vitamin d2, 00:00: 00:00 mouth [place] 1,250 mcg 00 :00 weekly. Medical (50,000 Branch unit) capsule ergocalcife 2022-0 2022- No [id number] Take 1 [facility] rol, 5- 07-20 capsule by ity of vitamin d2, 00:00: 00:00 mouth [place] 1,250 mcg 00 :00 weekly. Medical (50,000 Branch unit) capsule peg-electro 2022-0 2022- No 4000mL Take 4,000 [facility] lyte soln 4-21 04-22 mL by ity of (GOLYTELY) 00:00: 04:59 mouth once [place] 236-22.74-6 00 :00 now for 1 Med ical .74 -5.86 dose. Branch gram solution triamterene 2022-0 Yes [id number] 1{tbl} Take 1 [facility] -hydrochlor 4-06 tablet by ity of othiazid 00:00: mouth in [place] 37.5-25 mg 00 the Medical tablet morning. Branch terazosin 5 2022-0 Yes [id number] 5mg Take 1 [facility] mg capsule 4-06 capsule by ity of 00:00: mouth [place] 00 every Medical evening. Branch cloNIDine 2022-0 Yes [id number] .2mg Take 1 U nivers 0.2 mg 4-06 tablet by ity of tablet 00:00: mouth 3 [place] 00 (three) Medical times Branch daily as needed (Hypertens ion). Take 1 Mcdaniel TID PRN if BP >150/90 carvediloL Yes [id number] 25mg Take 1 [facility] 25 mg 4-06 tablet by ity of tablet 00:00: mouth in [place] 00 the Medical morning Branch and 1 tablet in the evening. Take with meals. TAKE ONE (1) TABLET(S) BY MOUTH TWICE A DAY WITH FOOD. amLODIPine- Yes [id number] 1{capsu Take 1 [facility] benazepriL 4-06 le} capsule by ity of 10-40 mg 00:00: mouth in [place] per capsule 00 the Medical morning. Branch tiZANidine Yes [id number] 2mg Take 1 [facility] 2 mg tablet 4-06 tablet by ity of 00:00: mouth [place] 00 every 8 Medical (eight) Branch hours as needed (muscle spasms). metFORMIN Yes [id number] TAKE ONE [facility] 1,000 mg 4-06 (1) ity of tablet 00:00: TABLET(S) [place] 00 BY MOUTH Medical EVERY Branch TWELVE HOURS WITH MORNING AND EVENING MEALS. atorvastati Yes [id number] 40mg Take 1 [facility] n 40 mg 4-06 tablet by [facility] tablet 00:00: mouth at [place] 00 bedtime. Medical Branch traZODone Yes [id number] 50mg Take 1 [facility] vers 50 mg 4-06 tablet by [facility] tablet 00:00: mouth at [place] 00 bedtime. Medical Branch FLUoxetine Yes [id number] 20mg Take 1 [facility] nivers 20 mg 4-06 capsule by [facility] capsule 00:00: mouth in [place] 00 the Medical morning. Branch triamterene Yes [id number] 1{tbl} Take 1 [facility] -hydrochlor 4-06 tablet by [facility] of othiazid 00:00: mouth in [place] 37.5-25 mg 00 the Medical tablet morning. Branch terazosin 5 0 Yes [id number] 5mg Take 1 [facility] mg capsule 4-06 capsule by [facility] of 00:00: mouth [place] 00 every Medical evening. Branch cloNIDine Yes [id number] .2mg Take 1 [facility] nivers 0.2 mg 4-06 tablet by [facility] tablet 00:00: mouth 3 [place] 00 (three) Medical times Branch daily as needed (Hypertens ion). Take 1 [facility] TID PRN if BP >150/90 carvediloL Yes [id number] 25mg Take 1 [facility] 25 mg 4-06 tablet by [facility] tablet 00:00: mouth in [place] 00 the Medical morning Branch and 1 tablet in the evening. Take with meals. TAKE ONE (1) TABLET(S) BY MOUTH TWICE A DAY WITH FOOD. amLODIPine- Yes [id number] 1{capsu Take 1 [facility] benazepriL 4-06 le} capsule by [facility] of 10-40 mg 00:00: mouth in [place] per capsule 00 the Medical morning. Branch tiZANidine Yes [id number] 2mg Take 1 [facility] 2 mg tablet 4-06 tablet by [facility] of 00:00: mouth [place] 00 every 8 Medical (eight) Branch hours as needed (muscle spasms). metFORMIN Yes [id number] TAKE ONE [facility] 1,000 mg 4-06 (1) [facility] tablet 00:00: TABLET(S) [place] 00 BY MOUTH Medical EVERY Branch TWELVE HOURS WITH MORNING AND EVENING MEALS. atorvastati Yes [id number] 40mg Take 1 [facility] n 40 mg 4-06 tablet by [facility] tablet 00:00: mouth at [place] 00 bedtime. Medical Branch traZODone Yes [id number] 50mg Take 1 [facility] vers 50 mg 4-06 tablet by [facility] tablet 00:00: mouth at [place] 00 bedtime. Medical Branch FLUoxetine Yes [id number] 20mg Take 1 [facility] nivers 20 mg 4-06 capsule by [facility] capsule 00:00: mouth in [place] 00 the Medical morning. Branch triamterene Yes [id number] 1{tbl} Take 1 [facility] -hydrochlor 4-06 tablet by [facility] of othiazid 00:00: mouth in [place] 37.5-25 mg 00 the Medical tablet morning. Branch terazosin 5 0 Yes [id number] 5mg Take 1 [facility] mg capsule 4-06 capsule by [facility] of 00:00: mouth [place] [address] every Medical evening. Branch cloNIDine 0 Yes [id number] .2mg Take 1 [facility] nivers 0.2 mg 4-06 tablet by [facility] tablet 00:00: mouth 3 [place] 00 (three) Medical times Branch daily as needed (Hypertens ion). Take 1 [facility] TID PRN if BP >150/90 carvediloL Yes [id number] 25mg Take 1 [facility] 25 mg 4-06 tablet by [facility] tablet 00:00: mouth in [place] 00 the Medical morning Branch and 1 tablet in the evening. Take with meals. TAKE ONE (1) TABLET(S) BY MOUTH TWICE A DAY WITH FOOD. amLODIPine- Yes [id number] 1{capsu Take 1 [facility] benazepriL 4-06 le} capsule by [facility] of 10-40 mg 00:00: mouth in [place] per capsule 00 the Medical morning. Branch tiZANidine Yes [id number] 2mg Take 1 [facility] 2 mg tablet 4-06 tablet by [facility] of 00:00: mouth [place] 00 every 8 Medical (eight) Branch hours as needed (muscle spasms). metFORMIN Yes [id number] TAKE ONE [facility] 1,000 mg 4-06 (1) [facility] tablet 00:00: TABLET(S) [place] 00 BY MOUTH Medical EVERY Branch TWELVE HOURS WITH MORNING AND EVENING MEALS. atorvastati Yes [id number] 40mg Take 1 [facility] n 40 mg 4-06 tablet by [facility] of tablet 00:00: mouth at [place] 00 bedtime. Medical Branch traZODone Yes [id number] 50mg Take 1 [facility] vers 50 mg 4-06 tablet by [facility] tablet 00:00: mouth at [place] 00 bedtime. Medical Branch FLUoxetine Yes [id number] 20mg Take 1 [facility] nivers 20 mg 4-06 capsule by [facility] capsule 00:00: mouth in [place] 00 the Medical morning. Branch triamterene Yes [id number] 1{tbl} Take 1 [facility] -hydrochlor 4-06 tablet by [facility] of othiazid 00:00: mouth in [place] 37.5-25 mg 00 the Medical tablet morning. Branch terazosin 5 0 Yes [id number] 5mg Take 1 [facility] mg capsule 4-06 capsule by [facility] of 00:00: mouth [place] 00 every Medical evening. Branch cloNIDine Yes [id number] .2mg Take 1 [facility] nivers 0.2 mg 4-06 tablet by [facility] tablet 00:00: mouth 3 [place] 00 (three) Medical times Branch daily as needed (Hypertens ion). Take 1 [facility] TID PRN if BP >150/90 carvediloL Yes [id number] 25mg Take 1 [facility] 25 mg 4-06 tablet by [facility] tablet 00:00: mouth in [place] 00 the Medical morning Branch and 1 tablet in the evening. Take with meals. TAKE ONE (1) TABLET(S) BY MOUTH TWICE A DAY WITH FOOD. amLODIPine- Yes [id number] 1{capsu Take 1 [facility] benazepriL 4-06 le} capsule by [facility] of 10-40 mg 00:00: mouth in [place] per capsule 00 the Medical morning. Branch tiZANidine Yes [id number] 2mg Take 1 [facility] 2 mg tablet 4-06 tablet by [facility] of 00:00: mouth [place] 00 every 8 Medical (eight) Branch hours as needed (muscle spasms). metFORMIN Yes [id number] TAKE ONE [facility] 1,000 mg 4-06 (1) [facility] tablet 00:00: TABLET(S) [place] 00 BY MOUTH Medical EVERY Branch TWELVE HOURS WITH MORNING AND EVENING MEALS. atorvastati Yes [id number] 40mg Take 1 [facility] n 40 mg 4-06 tablet by [facility] of tablet 00:00: mouth at [place] 00 bedtime. Medical Branch traZODone 0 Yes [id number] 50mg Take 1 [facility] vers 50 mg 4-06 tablet by [facility] tablet 00:00: mouth at [place] 00 bedtime. Medical Branch FLUoxetine Yes [id number] 20mg Take 1 [facility] nivers 20 mg 4-06 capsule by [facility] capsule 00:00: mouth in [place] 00 the Medical morning. Branch triamterene Yes [id number] 1{tbl} Take 1 [facility] -hydrochlor 4-06 tablet by [facility] of othiazid 00:00: mouth in [place] 37.5-25 mg 00 the Medical tablet morning. Branch terazosin 5 0 Yes [id number] 5mg Take 1 [facility] mg capsule 4-06 capsule by [facility] of 00:00: mouth [place] 00 every Medical evening. Branch cloNIDine Yes [id number] .2mg Take 1 [facility] nivers 0.2 mg 4-06 tablet by [facility] tablet 00:00: mouth 3 [place] 00 (three) Medical times Branch daily as needed (Hypertens ion). Take 1 [facility] TID PRN if BP >150/90 carvediloL Yes [id number] 25mg Take 1 [facility] 25 mg 4-06 tablet by [facility] tablet 00:00: mouth in [place] 00 the Medical morning Branch and 1 tablet in the evening. Take with meals. TAKE ONE (1) TABLET(S) BY MOUTH TWICE A DAY WITH FOOD. amLODIPine- Yes [id number] 1{capsu Take 1 [facility] benazepriL 4-06 le} capsule by [facility] of 10-40 mg 00:00: mouth in [place] per capsule 00 the Medical morning. Branch tiZANidine Yes [id number] 2mg Take 1 [facility] 2 mg tablet 4-06 tablet by [facility] of 00:00: mouth [place] 00 every 8 Medical (eight) Branch hours as needed (muscle spasms). metFORMIN Yes [id number] TAKE ONE [facility] 1,000 mg 4-06 (1) [facility] tablet 00:00: TABLET(S) [place] 00 BY MOUTH Medical EVERY Branch TWELVE HOURS WITH MORNING AND EVENING MEALS. atorvastati Yes [id number] 40mg Take 1 [facility] n 40 mg 4-06 tablet by [facility] of tablet 00:00: mouth at [place] 00 bedtime. Medical Branch traZODone Yes [id number] 50mg Take 1 [facility] vers 50 mg 4-06 tablet by [facility] tablet 00:00: mouth at [place] 00 bedtime. Medical Branch FLUoxetine Yes [id number] 20mg Take 1 [facility] nivers 20 mg 4-06 capsule by [facility] capsule 00:00: mouth in [place] 00 the Medical morning. Branch triamterene Yes [id number] 1{tbl} Take 1 [facility] -hydrochlor 4-06 tablet by [facility] of othiazid 00:00: mouth in [place] 37.5-25 mg 00 the Medical tablet morning. Branch terazosin 5 0 Yes [id number] 5mg Take 1 [facility] mg capsule 4-06 capsule by [facility] of 00:00: mouth [place] 00 every Medical evening. Branch cloNIDine Yes [id number] .2mg Take 1 [facility] nivers 0.2 mg 4-06 tablet by [facility] tablet 00:00: mouth 3 [place] 00 (three) Medical times Branch daily as needed (Hypertens ion). Take 1 [facility] TID PRN if BP >150/90 carvediloL Yes [id number] 25mg Take 1 [facility] 25 mg 4-06 tablet by [facility] tablet 00:00: mouth in [place] 00 the Medical morning Branch and 1 tablet in the evening. Take with meals. TAKE ONE (1) TABLET(S) BY MOUTH TWICE A DAY WITH FOOD. amLODIPine- Yes [id number] 1{capsu Take 1 [facility] benazepriL 4-06 le} capsule by [facility] of 10-40 mg 00:00: mouth in [place] per capsule 00 the Medical morning. Branch tiZANidine Yes [id number] 2mg Take 1 [facility] 2 mg tablet 4-06 tablet by [facility] of 00:00: mouth [place] 00 every 8 Medical (eight) Branch hours as needed (muscle spasms). metFORMIN Yes [id number] TAKE ONE [facility] 1,000 mg 4-06 (1) [facility] tablet 00:00: TABLET(S) [place] 00 BY MOUTH Medical EVERY Branch TWELVE HOURS WITH MORNING AND EVENING MEALS. atorvastati Yes [id number] 40mg Take 1 [facility] n 40 mg 4-06 tablet by [facility] of tablet 00:00: mouth at [place] 00 bedtime. Medical Branch traZODone 0 Yes [id number] 50mg Take 1 [facility] vers 50 mg 4-06 tablet by [facility] tablet 00:00: mouth at [place] 00 bedtime. Medical Branch FLUoxetine Yes [id number] 20mg Take 1 [facility] nivers 20 mg 4-06 capsule by [facility] capsule 00:00: mouth in [place] 00 the Medical morning. Branch triamterene Yes [id number] 1{tbl} Take 1 [facility] -hydrochlor 4-06 tablet by [facility] of othiazid 00:00: mouth in [place] 37.5-25 mg 00 the Medical tablet morning. Branch terazosin 5 0 Yes [id number] 5mg Take 1 [facility] mg capsule 4-06 capsule by [facility] of 00:00: mouth [place] 00 every Medical evening. Branch cloNIDine Yes [id number] .2mg Take 1 [facility] nivers 0.2 mg 4-06 tablet by [facility] tablet 00:00: mouth 3 [place] 00 (three) Medical times Branch daily as needed (Hypertens ion). Take 1 [facility] TID PRN if BP >150/90 carvediloL Yes [id number] 25mg Take 1 [facility] 25 mg 4-06 tablet by [facility] tablet 00:00: mouth in [place] 00 the Medical morning Branch and 1 tablet in the evening. Take with meals. TAKE ONE (1) TABLET(S) BY MOUTH TWICE A DAY WITH FOOD. amLODIPine- Yes [id number] 1{capsu Take 1 [facility] benazepriL 4-06 le} capsule by [facility] of 10-40 mg 00:00: mouth in [place] per capsule 00 the Medical morning. Branch tiZANidine Yes [id number] 2mg Take 1 [facility] 2 mg tablet 4-06 tablet by [facility] of 00:00: mouth [place] 00 every 8 Medical (eight) Branch hours as needed (muscle spasms). metFORMIN Yes [id number] TAKE ONE [facility] 1,000 mg 4-06 (1) [facility] of tablet 00:00: TABLET(S) [place] 00 BY MOUTH Medical EVERY Branch TWELVE HOURS WITH MORNING AND EVENING MEALS. atorvastati Yes [id number] 40mg Take 1 [facility] n 40 mg 4-06 tablet by [facility] of tablet 00:00: mouth at [place] 00 bedtime. Medical Branch traZODone Yes [id number] 50mg Take 1 [facility] vers 50 mg 4-06 tablet by [facility] tablet 00:00: mouth at [place] 00 bedtime. Medical Branch FLUoxetine Yes [id number] 20mg Take 1 [facility] nivers 20 mg 4-06 capsule by [facility] of capsule 00:00: mouth in [place] 00 the Medical morning. Branch triamterene Yes [id number] 1{tbl} Take 1 [facility] -hydrochlor 4-06 tablet by [facility] of othiazid 00:00: mouth in [place] 37.5-25 mg 00 the Medical tablet morning. Branch terazosin 5 0 Yes [id number] 5mg Take 1 [facility] mg capsule 4-06 capsule by [facility] of 00:00: mouth [place] 00 every Medical evening. Branch cloNIDine 0 Yes [id number] .2mg Take 1 [facility] nivers 0.2 mg 4-06 tablet by [facility] of tablet 00:00: mouth 3 [place] 00 (three) Medical times Branch daily as needed (Hypertens ion). Take 1 [facility] TID PRN if BP >150/90 carvediloL Yes [id number] 25mg Take 1 [facility] 25 mg 4-06 tablet by [facility] of tablet 00:00: mouth in [place] 00 the Medical morning Branch and 1 tablet in the evening. Take with meals. TAKE ONE (1) TABLET(S) BY MOUTH TWICE A DAY WITH FOOD. amLODIPine- Yes [id number] 1{capsu Take 1 [facility] benazepriL 4-06 le} capsule by [facility] of 10-40 mg 00:00: mouth in [place] per capsule 00 the Medical morning. Branch tiZANidine Yes [id number] 2mg Take 1 [facility] 2 mg tablet 4-06 tablet by [facility] of 00:00: mouth [place] 00 every 8 Medical (eight) Branch hours as needed (muscle spasms). metFORMIN Yes [id number] TAKE ONE [facility] 1,000 mg 4-06 (1) [facility] of tablet 00:00: TABLET(S) [place] 00 BY MOUTH Medical EVERY Branch TWELVE HOURS WITH MORNING AND EVENING MEALS. atorvastati Yes [id number] 40mg Take 1 [facility] n 40 mg 4-06 tablet by [facility] of tablet 00:00: mouth at [place] 00 bedtime. Medical Branch traZODone 0 Yes [id number] 50mg Take 1 [facility] vers 50 mg 4-06 tablet by [facility] tablet 00:00: mouth at [place] 00 bedtime. Medical Branch FLUoxetine 0 Yes [id number] 20mg Take 1 [facility] nivers 20 mg 4-06 capsule by [facility] of capsule 00:00: mouth in [place] 00 the Medical morning. Branch triamterene 0 Yes [id number] 1{tbl} Take 1 [facility] -hydrochlor 4-06 tablet by [facility] of othiazid 00:00: mouth in [place] 37.5-25 mg 00 the Medical tablet morning. Branch terazosin 5 Yes [id number] 5mg Take 1 [facility] mg capsule 4-06 capsule by [facility] of 00:00: mouth [place] 00 every Medical evening. Branch cloNIDine Yes [id number] .2mg Take 1 [facility] nivers 0.2 mg 4-06 tablet by [facility] of tablet 00:00: mouth 3 [place] 00 (three) Medical times Branch daily as needed (Hypertens ion). Take 1 [facility] TID PRN if BP >150/90 carvediloL Yes [id number] 25mg Take 1 [facility] 25 mg 4-06 tablet by [facility] of tablet 00:00: mouth in [place] 00 the Medical morning Branch and 1 tablet in the evening. Take with meals. TAKE ONE (1) TABLET(S) BY MOUTH TWICE A DAY WITH FOOD. amLODIPine- Yes [id number] 1{capsu Take 1 [facility] benazepriL 4-06 le} capsule by [facility] of 10-40 mg 00:00: mouth in [place] per capsule 00 the Medical morning. Branch tiZANidine Yes [id number] 2mg Take 1 [facility] 2 mg tablet 4-06 tablet by [facility] of 00:00: mouth [place] 00 every 8 Medical (eight) Branch hours as needed (muscle spasms). metFORMIN Yes [id number] TAKE ONE [facility] 1,000 mg 4-06 (1) [facility] of tablet 00:00: TABLET(S) [place] 00 BY MOUTH Medical EVERY Branch TWELVE HOURS WITH MORNING AND EVENING MEALS. atorvastati Yes [id number] 40mg Take 1 [facility] n 40 mg 4-06 tablet by [facility] of tablet 00:00: mouth at [place] 00 bedtime. Medical Branch traZODone Yes [id number] 50mg Take 1 [facility] vers 50 mg 4-06 tablet by [facility] of tablet 00:00: mouth at [place] 00 bedtime. Medical Branch FLUoxetine Yes [id number] 20mg Take 1 [facility] nivers 20 mg 4-06 capsule by [facility] of capsule 00:00: mouth in [place] 00 the Medical morning. Branch triamterene Yes [id number] 1{tbl} Take 1 [facility] -hydrochlor 4-06 tablet by [facility] of othiazid 00:00: mouth in [place] 37.5-25 mg 00 the Medical tablet morning. Branch terazosin 5 Yes [id number] 5mg Take 1 [facility] mg capsule 4-06 capsule by [facility] of 00:00: mouth [place] 00 every Medical evening. Branch cloNIDine Yes [id number] .2mg Take 1 [facility] nivers 0.2 mg 4-06 tablet by [facility] of tablet 00:00: mouth 3 [place] 00 (three) Medical times Branch daily as needed (Hypertens ion). Take 1 [facility] TID PRN if BP >150/90 carvediloL Yes [id number] 25mg Take 1 [facility] 25 mg 4-06 tablet by [facility] of tablet 00:00: mouth in [place] 00 the Medical morning Branch and 1 tablet in the evening. Take with meals. TAKE ONE (1) TABLET(S) BY MOUTH TWICE A DAY WITH FOOD. amLODIPine- Yes [id number] 1{capsu Take 1 [facility] benazepriL 4-06 le} capsule by [facility] of 10-40 mg 00:00: mouth in [place] per capsule 00 the Medical morning. Branch tiZANidine Yes [id number] 2mg Take 1 [facility] 2 mg tablet 4-06 tablet by [facility] of 00:00: mouth [place] 00 every 8 Medical (eight) Branch hours as needed (muscle spasms). metFORMIN Yes [id number] TAKE ONE [facility] 1,000 mg 4-06 (1) [facility] of tablet 00:00: TABLET(S) [place] 00 BY MOUTH Medical EVERY Branch TWELVE HOURS WITH MORNING AND EVENING MEALS. atorvastati Yes [id number] 40mg Take 1 [facility] n 40 mg 4-06 tablet by [facility] of tablet 00:00: mouth at [place] 00 bedtime. Medical Branch traZODone 0 Yes [id number] 50mg Take 1 [facility] vers 50 mg 4-06 tablet by [facility] of tablet 00:00: mouth at [place] 00 bedtime. Medical Branch FLUoxetine 0 Yes [id number] 20mg Take 1 [facility] nivers 20 mg 4-06 capsule by [facility] of capsule 00:00: mouth in [place] 00 the Medical morning. Branch triamterene Yes [id number] 1{tbl} Take 1 [facility] -hydrochlor 4-06 tablet by [facility] of othiazid 00:00: mouth in [place] 37.5-25 mg 00 the Medical tablet morning. Branch terazosin 5 Yes [id number] 5mg Take 1 [facility] mg capsule 4-06 capsule by [facility] of 00:00: mouth [place] 00 every Medical evening. Branch cloNIDine Yes [id number] .2mg Take 1 [facility] nivers 0.2 mg 4-06 tablet by [facility] of tablet 00:00: mouth 3 [place] 00 (three) Medical times Branch daily as needed (Hypertens ion). Take 1 [facility] TID PRN if BP >150/90 carvediloL Yes [id number] 25mg Take 1 [facility] 25 mg 4-06 tablet by [facility] of tablet 00:00: mouth in [place] 00 the Medical morning Branch and 1 tablet in the evening. Take with meals. TAKE ONE (1) TABLET(S) BY MOUTH TWICE A DAY WITH FOOD. amLODIPine- Yes [id number] 1{capsu Take 1 [facility] benazepriL 4-06 le} capsule by [facility] of 10-40 mg 00:00: mouth in [place] per capsule 00 the Medical morning. Branch tiZANidine Yes [id number] 2mg Take 1 [facility] 2 mg tablet 4-06 tablet by [facility] of 00:00: mouth [place] 00 every 8 Medical (eight) Branch hours as needed (muscle spasms). metFORMIN Yes [id number] TAKE ONE [facility] 1,000 mg 4-06 (1) [facility] of tablet 00:00: TABLET(S) [place] 00 BY MOUTH Medical EVERY Branch TWELVE HOURS WITH MORNING AND EVENING MEALS. atorvastati Yes [id number] 40mg Take 1 [facility] n 40 mg 4-06 tablet by [facility] of tablet 00:00: mouth at [place] 00 bedtime. Medical Branch traZODone 0 Yes [id number] 50mg Take 1 [facility] vers 50 mg 4-06 tablet by [facility] of tablet 00:00: mouth at [place] 00 bedtime. Medical Branch FLUoxetine Yes [id number] 20mg Take 1 [facility] nivers 20 mg 4-06 capsule by [facility] of capsule 00:00: mouth in [place] 00 the Medical morning. Branch triamterene Yes [id number] 1{tbl} Take 1 [facility] -hydrochlor 4-06 tablet by [facility] of othiazid 00:00: mouth in [place] 37.5-25 mg 00 the Medical tablet morning. Branch terazosin 5 Yes [id number] 5mg Take 1 [facility] mg capsule 4-06 capsule by [facility] of 00:00: mouth [place] 00 every Medical evening. Branch cloNIDine 0 Yes [id number] .2mg Take 1 [facility] nivers 0.2 mg 4-06 tablet by [facility] of tablet 00:00: mouth 3 [place] 00 (three) Medical times Branch daily as needed (Hypertens ion). Take 1 [facility] TID PRN if BP >150/90 carvediloL Yes [id number] 25mg Take 1 [facility] 25 mg 4-06 tablet by [facility] of tablet 00:00: mouth in [place] 00 the Medical morning Branch and 1 tablet in the evening. Take with meals. TAKE ONE (1) TABLET(S) BY MOUTH TWICE A DAY WITH FOOD. amLODIPine- Yes [id number] 1{capsu Take 1 [facility] benazepriL 4-06 le} capsule by [facility] of 10-40 mg 00:00: mouth in [place] per capsule 00 the Medical morning. Branch tiZANidine Yes [id number] 2mg Take 1 [facility] 2 mg tablet 4-06 tablet by [facility] of 00:00: mouth [place] 00 every 8 Medical (eight) Branch hours as needed (muscle spasms). metFORMIN Yes [id number] TAKE ONE [facility] 1,000 mg 4-06 (1) [facility] of tablet 00:00: TABLET(S) [place] 00 BY MOUTH Medical EVERY Branch TWELVE HOURS WITH MORNING AND EVENING MEALS. atorvastati Yes [id number] 40mg Take 1 [facility] n 40 mg 4-06 tablet by [facility] of tablet 00:00: mouth at [place] 00 bedtime. Medical Branch traZODone 0 Yes [id number] 50mg Take 1 [facility] vers 50 mg 4-06 tablet by [facility] of tablet 00:00: mouth at [place] 00 bedtime. Medical Branch FLUoxetine 0 Yes [id number] 20mg Take 1 [facility] nivers 20 mg 4-06 capsule by [facility] of capsule 00:00: mouth in [place] 00 the Medical morning. Branch triamterene Yes [id number] 1{tbl} Take 1 [facility] -hydrochlor 4-06 tablet by [facility] of othiazid 00:00: mouth in [place] 37.5-25 mg 00 the Medical tablet morning. Branch terazosin 5 Yes [id number] 5mg Take 1 [facility] mg capsule 4-06 capsule by [facility] of 00:00: mouth [place] 00 every Medical evening. Branch cloNIDine Yes [id number] .2mg Take 1 [facility] nivers 0.2 mg 4-06 tablet by [facility] of tablet 00:00: mouth 3 [place] 00 (three) Medical times Branch daily as needed (Hypertens ion). Take 1 [facility] TID PRN if BP >150/90 carvediloL Yes [id number] 25mg Take 1 [facility] 25 mg 4-06 tablet by [facility] of tablet 00:00: mouth in [place] 00 the Medical morning Branch and 1 tablet in the evening. Take with meals. TAKE ONE (1) TABLET(S) BY MOUTH TWICE A DAY WITH FOOD. amLODIPine- Yes [id number] 1{capsu Take 1 [facility] benazepriL 4-06 le} capsule by [facility] of 10-40 mg 00:00: mouth in [place] per capsule 00 the Medical morning. Branch tiZANidine Yes [id number] 2mg Take 1 [facility] 2 mg tablet 4-06 tablet by [facility] of 00:00: mouth [place] 00 every 8 Medical (eight) Branch hours as needed (muscle spasms). metFORMIN Yes [id number] TAKE ONE [facility] 1,000 mg 4-06 (1) [facility] of tablet 00:00: TABLET(S) [place] 00 BY MOUTH Medical EVERY Branch TWELVE HOURS WITH MORNING AND EVENING MEALS. atorvastati Yes [id number] 40mg Take 1 [facility] n 40 mg 4-06 tablet by [facility] of tablet 00:00: mouth at [place] [address] bedtime. Medical Branch traZODone 0 Yes [id number] 50mg Take 1 [facility] vers 50 mg 4-06 tablet by [facility] of tablet 00:00: mouth at [place] 00 bedtime. Medical Branch FLUoxetine Yes [id number] 20mg Take 1 [facility] nivers 20 mg 4-06 capsule by [facility] of capsule 00:00: mouth in [place] 00 the Medical morning. Branch triamterene Yes [id number] 1{tbl} Take 1 [facility] -hydrochlor 4-06 tablet by [facility] of othiazid 00:00: mouth in [place] 37.5-25 mg 00 the Medical tablet morning. Branch terazosin 5 Yes [id number] 5mg Take 1 [facility] mg capsule 4-06 capsule by [facility] of 00:00: mouth [place] 00 every Medical evening. Branch cloNIDine 2022-0 Yes [id number] .2mg Take 1 [facility] nivers 0.2 mg 4-06 tablet by [facility] of tablet 00:00: mouth 3 [place] 00 (three) Medical times Branch daily as needed (Hypertens ion). Take 1 [facility] TID PRN if BP >150/90 carvediloL Yes [id number] 25mg Take 1 [facility] 25 mg 4-06 tablet by [facility] of tablet 00:00: mouth in [place] 00 the Medical morning Branch and 1 tablet in the evening. Take with meals. TAKE ONE (1) TABLET(S) BY MOUTH TWICE A DAY WITH FOOD. amLODIPine- Yes [id number] 1{capsu Take 1 [facility] benazepriL 4-06 le} capsule by [facility] of 10-40 mg 00:00: mouth in [place] per capsule 00 the Medical morning. Branch tiZANidine Yes [id number] 2mg Take 1 [facility] 2 mg tablet 4-06 tablet by [facility] of 00:00: mouth [place] 00 every 8 Medical (eight) Branch hours as needed (muscle spasms). metFORMIN 0 Yes [id number] TAKE ONE [facility] 1,000 mg 4-06 (1) it[facility] of tablet 00:00: TABLET(S) [place] 00 BY MOUTH Medical EVERY Branch TWELVE HOURS WITH MORNING AND EVENING MEALS. atorvastati Yes [id number] 40mg Take 1 [facility] n 40 mg 4-06 tablet by [facility] of tablet 00:00: mouth at [place] [address] bedtime. Medical Branch traZODone 2022-0 Yes [id number] 50mg Take 1 [facility] vers 50 mg 4-06 tablet by [facility] of tablet 00:00: mouth at [place] [address] bedtime. Medical Branch FLUoxetine 2022-0 Yes [id number] 20mg Take 1 [facility] nivers 20 mg 4-06 capsule by [facility] of capsule 00:00: mouth in [place] 00 the Medical morning. Branch triamterene Yes [id number] 1{tbl} Take 1 [facility] -hydrochlor 4-06 tablet by [facility] of othiazid 00:00: mouth in [place] 37.5-25 mg 00 the Medical tablet morning. Branch terazosin 5 0 Yes [id number] 5mg Take 1 [facility] mg capsule 4-06 capsule by [facility] of 00:00: mouth [place] 00 every Medical evening. Branch cloNIDine 0 Yes [id number] .2mg Take 1 [facility] nivers 0.2 mg 4-06 tablet by [facility] of tablet 00:00: mouth 3 [place] 00 (three) Medical times Branch daily as needed (Hypertens ion). Take 1 [facility] TID PRN if BP >150/90 carvediloL Yes [id number] 25mg Take 1 [facility] 25 mg 4-06 tablet by [facility] of tablet 00:00: mouth in [place] 00 the Medical morning Branch and 1 tablet in the evening. Take with meals. TAKE ONE (1) TABLET(S) BY MOUTH TWICE A DAY WITH FOOD. amLODIPine- Yes [id number] 1{capsu Take 1 [facility] benazepriL 4-06 le} capsule by [facility] of 10-40 mg 00:00: mouth in [place] per capsule 00 the Medical morning. Branch tiZANidine Yes [id number] 2mg Take 1 [facility] 2 mg tablet 4-06 tablet by [facility] of 00:00: mouth [place] 00 every 8 Medical (eight) Branch hours as needed (muscle spasms). metFORMIN 0 Yes [id number] TAKE ONE [facility] 1,000 mg 4-06 (1) ity of tablet 00:00: TABLET(S) [place] 00 BY MOUTH Medical EVERY Branch TWELVE HOURS WITH MORNING AND EVENING MEALS. atorvastati Yes [id number] 40mg Take 1 [facility] n 40 mg 4-06 tablet by [facility] of tablet 00:00: mouth at [place] 00 bedtime. Medical Branch traZODone 0 Yes [id number] 50mg Take 1 [facility] vers 50 mg 4-06 tablet by [facility] of tablet 00:00: mouth at [place] 00 bedtime. Medical Branch FLUoxetine 2022-0 Yes [id number] 20mg Take 1 [facility] nivers 20 mg 4-06 capsule by [facility] of capsule 00:00: mouth in [place] 00 the Medical morning. Branch triamterene Yes [id number] 1{tbl} Take 1 [facility] -hydrochlor 4-06 tablet by [facility] of othiazid 00:00: mouth in [place] 37.5-25 mg 00 the Medical tablet morning. Branch terazosin 5 0 Yes [id number] 5mg Take 1 [facility] mg capsule 4-06 capsule by [facility] of 00:00: mouth [place] 00 every Medical evening. Branch cloNIDine 0 Yes [id number] .2mg Take 1 [facility] nivers 0.2 mg 4-06 tablet by [facility] of tablet 00:00: mouth 3 [place] 00 (three) Medical times Branch daily as needed (Hypertens ion). Take 1 [facility] TID PRN if BP >150/90 carvediloL Yes [id number] 25mg Take 1 [facility] 25 mg 4-06 tablet by [facility] of tablet 00:00: mouth in [place] 00 the Medical morning Branch and 1 tablet in the evening. Take with meals. TAKE ONE (1) TABLET(S) BY MOUTH TWICE A DAY WITH FOOD. amLODIPine- Yes [id number] 1{capsu Take 1 [facility] benazepriL 4-06 le} capsule by [facility] 10-40 mg 00:00: mouth in [place] per capsule 00 the Medical morning. Branch tiZANidine Yes [id number] 2mg Take 1 [facility] 2 mg tablet 4-06 tablet by [facility] of 00:00: mouth [place] 00 every 8 Medical (eight) Branch hours as needed (muscle spasms). metFORMIN 0 Yes [id number] TAKE ONE [facility] 1,000 mg 4-06 (1) [facility] tablet 00:00: TABLET(S) [place] 00 BY MOUTH Medical EVERY Branch TWELVE HOURS WITH MORNING AND EVENING MEALS. atorvastati 0 Yes [id number] 40mg Take 1 [facility] n 40 mg 4-06 tablet by [facility] of tablet 00:00: mouth at [place] 00 bedtime. Medical Branch traZODone 2022-0 Yes [id number] 50mg Take 1 [facility] vers 50 mg 4-06 tablet by [facility] of tablet 00:00: mouth at [place] [address] bedtime. Medical Branch FLUoxetine 2022-0 Yes [id number] 20mg Take 1 [facility] nivers 20 mg 4-06 capsule by [facility] capsule 00:00: mouth in [place] 00 the Medical morning. Branch triamterene Yes [id number] 1{tbl} Take 1 [facility] -hydrochlor 4-06 tablet by [facility] of othiazid 00:00: mouth in [place] 37.5-25 mg 00 the Medical tablet morning. Branch terazosin 5 Yes [id number] 5mg Take 1 [facility] mg capsule 4-06 capsule by [facility] of 00:00: mouth [place] 00 every Medical evening. Branch cloNIDine Yes [id number] .2mg Take 1 [facility] nivers 0.2 mg 4-06 tablet by [facility] of tablet 00:00: mouth 3 [place] 00 (three) Medical times Branch daily as needed (Hypertens ion). Take 1 [facility] TID PRN if BP >150/90 carvediloL Yes [id number] 25mg Take 1 [facility] 25 mg 4-06 tablet by [facility] tablet 00:00: mouth in [place] 00 the Medical morning Branch and 1 tablet in the evening. Take with meals. TAKE ONE (1) TABLET(S) BY MOUTH TWICE A DAY WITH FOOD. amLODIPine- Yes [id number] 1{capsu Take 1 [facility] benazepriL 4-06 le} capsule by [facility] of 10-40 mg 00:00: mouth in [place] per capsule 00 the Medical morning. Branch tiZANidine Yes [id number] 2mg Take 1 [facility] 2 mg tablet 4-06 tablet by [facility] of 00:00: mouth [place] 00 every 8 Medical (eight) Branch hours as needed (muscle spasms). metFORMIN Yes [id number] TAKE ONE [facility] 1,000 mg 4-06 (1) [facility] of tablet 00:00: TABLET(S) [place] 00 BY MOUTH Medical EVERY Branch TWELVE HOURS WITH MORNING AND EVENING MEALS. atorvastati Yes [id number] 40mg Take 1 [facility] n 40 mg 4-06 tablet by [facility] of tablet 00:00: mouth at [place] [address] bedtime. Medical Branch traZODone 0 Yes [id number] 50mg Take 1 [facility] vers 50 mg 4-06 tablet by [facility] tablet 00:00: mouth at [place] 00 bedtime. Medical Branch FLUoxetine 2022-0 Yes [id number] 20mg Take 1 [facility] n[facility] 20 mg 4-06 capsule by [facility] capsule 00:00: mouth in [place] 00 the Medical morning. Branch triamterene Yes [id number] 1{tbl} Take 1 [facility] -hydrochlor 4-06 tablet by [facility] of othiazid 00:00: mouth in [place] 37.5-25 mg 00 the Medical tablet morning. Branch terazosin 5 Yes [id number] 5mg Take 1 [facility] mg capsule 4-06 capsule by [facility] of 00:00: mouth [place] 00 every Medical evening. Branch cloNIDine Yes [id number] .2mg Take 1 [facility] n[facility] 0.2 mg 4-06 tablet by [facility] of tablet 00:00: mouth 3 [place] 00 (three) Medical times Branch daily as needed (Hypertens ion). Take 1 [facility] TID PRN if BP >150/90 carvediloL Yes [id number] 25mg Take 1 [facility] 25 mg 4-06 tablet by [facility] tablet 00:00: mouth in [place] 00 the Medical morning Branch and 1 tablet in the evening. Take with meals. TAKE ONE (1) TABLET(S) BY MOUTH TWICE A DAY WITH FOOD. amLODIPine- Yes [id number] 1{capsu Take 1 [facility] benazepriL 4-06 le} capsule by [facility] 10-40 mg 00:00: mouth in [place] per capsule 00 the Medical morning. Branch tiZANidine Yes [id number] 2mg Take 1 [facility] 2 mg tablet 4-06 tablet by [facility] of 00:00: mouth [place] 00 every 8 Medical (eight) Branch hours as needed (muscle spasms). metFORMIN Yes [id number] TAKE ONE [facility] 1,000 mg 4-06 (1) [facility] tablet 00:00: TABLET(S) [place] 00 BY MOUTH Medical EVERY Branch TWELVE HOURS WITH MORNING AND EVENING MEALS. atorvastati Yes [id number] 40mg Take 1 [facility] n 40 mg 4-06 tablet by [facility] of tablet 00:00: mouth at [place] [address] bedtime. Medical Branch traZODone 0 Yes [id number] 50mg Take 1 [facility] vers 50 mg 4-06 tablet by [facility] of tablet 00:00: mouth at [place] 00 bedtime. Medical Branch FLUoxetine Yes [id number] 20mg Take 1 [facility] nivers 20 mg 4-06 capsule by [facility] of capsule 00:00: mouth in [place] 00 the Medical morning. Branch triamterene Yes [id number] 1{tbl} Take 1 [facility] -hydrochlor 4-06 tablet by [facility] of othiazid 00:00: mouth in [place] 37.5-25 mg 00 the Medical tablet morning. Branch terazosin 5 Yes [id number] 5mg Take 1 [facility] mg capsule 4-06 capsule by [facility] of 00:00: mouth [place] 00 every Medical evening. Branch cloNIDine Yes [id number] .2mg Take 1 [facility] nivers 0.2 mg 4-06 tablet by [facility] of tablet 00:00: mouth 3 [place] 00 (three) Medical times Branch daily as needed (Hypertens ion). Take 1 [facility] TID PRN if BP >150/90 carvediloL Yes [id number] 25mg Take 1 [facility] 25 mg 4-06 tablet by [facility] of tablet 00:00: mouth in [place] 00 the Medical morning Branch and 1 tablet in the evening. Take with meals. TAKE ONE (1) TABLET(S) BY MOUTH TWICE A DAY WITH FOOD. amLODIPine- Yes [id number] 1{capsu Take 1 [facility] benazepriL 4-06 le} capsule by [facility] 10-40 mg 00:00: mouth in [place] per capsule 00 the Medical morning. Branch tiZANidine Yes [id number] 2mg Take 1 [facility] 2 mg tablet 4-06 tablet by [facility] of 00:00: mouth [place] 00 every 8 Medical (eight) Branch hours as needed (muscle spasms). metFORMIN Yes [id number] TAKE ONE [facility] 1,000 mg 4-06 (1) [facility] tablet 00:00: TABLET(S) [place] 00 BY MOUTH Medical EVERY Branch TWELVE HOURS WITH MORNING AND EVENING MEALS. atorvastati Yes [id number] 40mg Take 1 [facility] n 40 mg 4-06 tablet by [facility] of tablet 00:00: mouth at [place] [address] bedtime. Medical Branch traZODone 0 Yes [id number] 50mg Take 1 [facility] vers 50 mg 4-06 tablet by [facility] of tablet 00:00: mouth at [place] 00 bedtime. Medical Branch FLUoxetine 0 Yes [id number] 20mg Take 1 [facility] nivers 20 mg 4-06 capsule by [facility] of capsule 00:00: mouth in [place] 00 the Medical morning. Branch triamterene Yes [id number] 1{tbl} Take 1 [facility] -hydrochlor 4-06 tablet by [facility] of othiazid 00:00: mouth in [place] 37.5-25 mg 00 the Medical tablet morning. Branch terazosin 5 0 Yes [id number] 5mg Take 1 [facility] mg capsule 4-06 capsule by [facility] of 00:00: mouth [place] 00 every Medical evening. Branch cloNIDine 0 Yes [id number] .2mg Take 1 [facility] nivers 0.2 mg 4-06 tablet by [facility] of tablet 00:00: mouth 3 [place] 00 (three) Medical times Branch daily as needed (Hypertens ion). Take 1 [facility] TID PRN if BP >150/90 carvediloL Yes [id number] 25mg Take 1 [facility] 25 mg 4-06 tablet by [facility] of tablet 00:00: mouth in [place] 00 the Medical morning Branch and 1 tablet in the evening. Take with meals. TAKE ONE (1) TABLET(S) BY MOUTH TWICE A DAY WITH FOOD. amLODIPine- Yes [id number] 1{capsu Take 1 [facility] benazepriL 4-06 le} capsule by [facility] of 10-40 mg 00:00: mouth in [place] per capsule 00 the Medical morning. Branch tiZANidine Yes [id number] 2mg Take 1 [facility] 2 mg tablet 4-06 tablet by [facility] of 00:00: mouth [place] [address] every 8 Medical (eight) Branch hours as needed (muscle spasms). metFORMIN 0 Yes [id number] TAKE ONE [facility] 1,000 mg 4-06 (1) [facility] tablet 00:00: TABLET(S) [place] 00 BY MOUTH Medical EVERY Branch TWELVE HOURS WITH MORNING AND EVENING MEALS. atorvastati Yes [id number] 40mg Take 1 [facility] n 40 mg 4-06 tablet by [facility] of tablet 00:00: mouth at [place] [address] bedtime. Medical Branch traZODone 0 Yes [id number] 50mg Take 1 [facility] vers 50 mg 4-06 tablet by [facility] of tablet 00:00: mouth at [place] 00 bedtime. Medical Branch FLUoxetine 0 Yes [id number] 20mg Take 1 [facility] nivers 20 mg 4-06 capsule by [facility] of capsule 00:00: mouth in [place] 00 the Medical morning. Branch triamterene Yes [id number] 1{tbl} Take 1 [facility] -hydrochlor 4-06 tablet by [facility] of othiazid 00:00: mouth in [place] 37.5-25 mg 00 the Medical tablet morning. Branch terazosin 5 0 Yes [id number] 5mg Take 1 [facility] mg capsule 4-06 capsule by [facility] of 00:00: mouth [place] 00 every Medical evening. Branch cloNIDine 0 Yes [id number] .2mg Take 1 [facility] nivers 0.2 mg 4-06 tablet by [facility] of tablet 00:00: mouth 3 [place] 00 (three) Medical times Branch daily as needed (Hypertens ion). Take 1 [facility] TID PRN if BP >150/90 carvediloL 0 Yes [id number] 25mg Take 1 [facility] 25 mg 4-06 tablet by [facility] of tablet 00:00: mouth in [place] 00 the Medical morning Branch and 1 tablet in the evening. Take with meals. TAKE ONE (1) TABLET(S) BY MOUTH TWICE A DAY WITH FOOD. amLODIPine- Yes [id number] 1{capsu Take 1 [facility] benazepriL 4-06 le} capsule by [facility] 10-40 mg 00:00: mouth in [place] per capsule 00 the Medical morning. Branch tiZANidine 0 Yes [id number] 2mg Take 1 [facility] 2 mg tablet 4-06 tablet by [facility] of 00:00: mouth [place] 00 every 8 Medical (eight) Branch hours as needed (muscle spasms). metFORMIN 0 Yes [id number] TAKE ONE [facility] 1,000 mg 4-06 (1) [facility] of tablet 00:00: TABLET(S) [place] 00 BY MOUTH Medical EVERY Branch TWELVE HOURS WITH MORNING AND EVENING MEALS. atorvastati 0 Yes [id number] 40mg Take 1 [facility] n 40 mg 4-06 tablet by [facility] of tablet 00:00: mouth at [place] 00 bedtime. Medical Branch traZODone 2022-0 Yes [id number] 50mg Take 1 [facility] vers 50 mg 4-06 tablet by [facility] of tablet 00:00: mouth at [place] [address] bedtime. Medical Branch FLUoxetine 0 Yes [id number] 20mg Take 1 [facility] nivers 20 mg 4-06 capsule by [facility] of capsule 00:00: mouth in [place] 00 the Medical morning. Branch triamterene Yes [id number] 1{tbl} Take 1 [facility] -hydrochlor 4-06 tablet by [facility] of othiazid 00:00: mouth in [place] 37.5-25 mg 00 the Medical tablet morning. Branch terazosin 5 0 Yes [id number] 5mg Take 1 [facility] mg capsule 4-06 capsule by [facility] of 00:00: mouth [place] [address] every Medical evening. Branch cloNIDine 2022-0 Yes [id number] .2mg Take 1 [facility] nivers 0.2 mg 4-06 tablet by [facility] of tablet 00:00: mouth 3 [place] 00 (three) Medical times Branch daily as needed (Hypertens ion). Take 1 [facility] TID PRN if BP >150/90 carvediloL 0 Yes [id number] 25mg Take 1 [facility] 25 mg 4-06 tablet by [facility] of tablet 00:00: mouth in [place] 00 the Medical morning Branch and 1 tablet in the evening. Take with meals. TAKE ONE (1) TABLET(S) BY MOUTH TWICE A DAY WITH FOOD. amLODIPine- Yes [id number] 1{capsu Take 1 [facility] benazepriL 4-06 le} capsule by [facility] of 10-40 mg 00:00: mouth in [place] per capsule 00 the Medical morning. Branch tiZANidine 0 Yes [id number] 2mg Take 1 [facility] 2 mg tablet 4-06 tablet by [facility] of 00:00: mouth [place] 00 every 8 Medical (eight) Branch hours as needed (muscle spasms). metFORMIN 2022-0 Yes [id number] TAKE ONE [facility] 1,000 mg 4-06 (1) [facility] of tablet 00:00: TABLET(S) 00 BY MOUTH Medical EVERY Branch TWELVE HOURS WITH MORNING AND EVENING MEALS. atorvastati 2022-0 Yes [id number] 40mg Take 1 [facility] n 40 mg 4-06 tablet by [facility] of tablet 00:00: mouth at [place] [address] bedtime. Medical Branch traZODone 2022-0 Yes [id number] 50mg Take 1 [facility] vers 50 mg 4-06 tablet by [facility] of tablet 00:00: mouth at [place] 00 bedtime. Medical Branch FLUoxetine Yes [id number] 20mg Take 1 [facility] nivers 20 mg 4-06 capsule by [facility] of capsule 00:00: mouth in [place] 00 the Medical morning. Branch triamterene Yes [id number] 1{tbl} Take 1 [facility] -hydrochlor 4-06 tablet by [facility] of othiazid 00:00: mouth in [place] 37.5-25 mg 00 the Medical tablet morning. Branch cloNIDine Yes [id number] .2mg Take 1 [facility] nivers 0.2 mg 4-06 tablet by [facility] of tablet 00:00: mouth 3 [place] 00 (three) Medical times Branch daily as needed (Hypertens ion). Take 1 [facility] TID PRN if BP >150/90 carvediloL Yes [id number] 25mg Take 1 [facility] 25 mg 4-06 tablet by [facility] of tablet 00:00: mouth in [place] 00 the Medical morning Branch and 1 tablet in the evening. Take with meals. TAKE ONE (1) TABLET(S) BY MOUTH TWICE A DAY WITH FOOD. amLODIPine- Yes [id number] 1{capsu Take 1 [facility] benazepriL 4-06 le} capsule by [facility] of 10-40 mg 00:00: mouth in [place] per capsule 00 the Medical morning. Branch tiZANidine Yes [id number] 2mg Take 1 [facility] 2 mg tablet 4-06 tablet by [facility] of 00:00: mouth [place] 00 every 8 Medical (eight) Branch hours as needed (muscle spasms). metFORMIN Yes [id number] TAKE ONE [facility] 1,000 mg 4-06 (1) [facility] of tablet 00:00: TABLET(S) [place] 00 BY MOUTH Medical EVERY Branch TWELVE HOURS WITH MORNING AND EVENING MEALS. atorvastati Yes [id number] 40mg Take 1 [facility] n 40 mg 4-06 tablet by [facility] of tablet 00:00: mouth at [place] 00 bedtime. Medical Branch traZODone 0 Yes [id number] 50mg Take 1 [facility] vers 50 mg 4-06 tablet by [facility] of tablet 00:00: mouth at [place] [address] bedtime. Medical Branch FLUoxetine 2023-0 Yes [id number] 20mg Take 1 [facility] nivers 20 mg 4-06 capsule by [facility] of capsule 00:00: mouth in [place] 00 the Medical morning. Branch triamterene Yes [id number] 1{tbl} Take 1 [facility] -hydrochlor 4-06 tablet by [facility] of othiazid 00:00: mouth in [place] 37.5-25 mg 00 the Medical tablet morning. Branch cloNIDine Yes [id number] .2mg Take 1 [facility] nivers 0.2 mg 4-06 tablet by [facility] of tablet 00:00: mouth 3 [place] 00 (three) Medical times Branch daily as needed (Hypertens ion). Take 1 [facility] TID PRN if BP >150/90 carvediloL Yes [id number] 25mg Take 1 [facility] 25 mg 4-06 tablet by [facility] of tablet 00:00: mouth in [place] 00 the Medical morning Branch and 1 tablet in the evening. Take with meals. TAKE ONE (1) TABLET(S) BY MOUTH TWICE A DAY WITH FOOD. amLODIPine- Yes [id number] 1{capsu Take 1 [facility] benazepriL 4-06 le} capsule by [facility] of 10-40 mg 00:00: mouth in [place] per capsule 00 the Medical morning. Branch tiZANidine Yes [id number] 2mg Take 1 [facility] 2 mg tablet 4-06 tablet by [facility] of 00:00: mouth [place] 00 every 8 Medical (eight) Branch hours as needed (muscle spasms). metFORMIN 0 Yes [id number] TAKE ONE [facility] 1,000 mg 4-06 (1) [facility] of tablet 00:00: TABLET(S) [place] 00 BY MOUTH Medical EVERY Branch TWELVE HOURS WITH MORNING AND EVENING MEALS. atorvastati Yes [id number] 40mg Take 1 [facility] n 40 mg 4-06 tablet by [facility] of tablet 00:00: mouth at [place] 00 bedtime. Medical Branch traZODone 0 Yes [id number] 50mg Take 1 [facility] vers 50 mg 4-06 tablet by [facility] of tablet 00:00: mouth at [place] 00 bedtime. Medical Branch FLUoxetine 0 Yes [id number] 20mg Take 1 [facility] nivers 20 mg 4-06 capsule by [facility] of capsule 00:00: mouth in [place] 00 the Medical morning. Branch triamterene Yes [id number] 1{tbl} Take 1 [facility] -hydrochlor 4-06 tablet by [facility] of othiazid 00:00: mouth in [place] 37.5-25 mg 00 the Medical tablet morning. Branch cloNIDine Yes [id number] .2mg Take 1 [facility] nivers 0.2 mg 4-06 tablet by [facility] of tablet 00:00: mouth 3 [place] 00 (three) Medical times Branch daily as needed (Hypertens ion). Take 1 [facility] TID PRN if BP >150/90 carvediloL Yes [id number] 25mg Take 1 [facility] 25 mg 4-06 tablet by [facility] of tablet 00:00: mouth in [place] 00 the Medical morning Branch and 1 tablet in the evening. Take with meals. TAKE ONE (1) TABLET(S) BY MOUTH TWICE A DAY WITH FOOD. amLODIPine- Yes [id number] 1{capsu Take 1 [facility] benazepriL 4-06 le} capsule by [facility] of 10-40 mg 00:00: mouth in [place] per capsule 00 the Medical morning. Branch tiZANidine Yes [id number] 2mg Take 1 [facility] 2 mg tablet 4-06 tablet by [facility] of 00:00: mouth [place] 00 every 8 Medical (eight) Branch hours as needed (muscle spasms). metFORMIN Yes [id number] TAKE ONE [facility] 1,000 mg 4-06 (1) [facility] of tablet 00:00: TABLET(S) [place] 00 BY MOUTH Medical EVERY Branch TWELVE HOURS WITH MORNING AND EVENING MEALS. atorvastati Yes [id number] 40mg Take 1 [facility] n 40 mg 4-06 tablet by [facility] of tablet 00:00: mouth at [place] 00 bedtime. Medical Branch traZODone Yes [id number] 50mg Take 1 [facility] vers 50 mg 4-06 tablet by [facility] of tablet 00:00: mouth at [place] 00 bedtime. Medical Branch FLUoxetine Yes [id number] 20mg Take 1 [facility] nivers 20 mg 4-06 capsule by [facility] of capsule 00:00: mouth in [place] 00 the Medical morning. Branch triamterene Yes [id number] 1{tbl} Take 1 [facility] -hydrochlor 4-06 tablet by [facility] of othiazid 00:00: mouth in [place] 37.5-25 mg 00 the Medical tablet morning. Branch cloNIDine Yes [id number] .2mg Take 1 [facility] nivers 0.2 mg 4-06 tablet by [facility] of tablet 00:00: mouth 3 [place] 00 (three) Medical times Branch daily as needed (Hypertens ion). Take 1 [facility] TID PRN if BP >150/90 carvediloL Yes [id number] 25mg Take 1 [facility] 25 mg 4-06 tablet by [facility] of tablet 00:00: mouth in [place] 00 the Medical morning Branch and 1 tablet in the evening. Take with meals. TAKE ONE (1) TABLET(S) BY MOUTH TWICE A DAY WITH FOOD. amLODIPine- Yes [id number] 1{capsu Take 1 [facility] benazepriL 4-06 le} capsule by [facility] of 10-40 mg 00:00: mouth in [place] per capsule 00 the Medical morning. Branch tiZANidine Yes [id number] 2mg Take 1 [facility] 2 mg tablet 4-06 tablet by [facility] of 00:00: mouth [place] 00 every 8 Medical (eight) Branch hours as needed (muscle spasms). metFORMIN Yes [id number] TAKE ONE [facility] 1,000 mg 4-06 (1) [facility] of tablet 00:00: TABLET(S) [place] 00 BY MOUTH Medical EVERY Branch TWELVE HOURS WITH MORNING AND EVENING MEALS. atorvastati Yes [id number] 40mg Take 1 [facility] n 40 mg 4-06 tablet by [facility] of tablet 00:00: mouth at [place] [address] bedtime. Medical Branch traZODone 0 Yes [id number] 50mg Take 1 [facility] vers 50 mg 4-06 tablet by [facility] of tablet 00:00: mouth at [place] 00 bedtime. Medical Branch FLUoxetine Yes [id number] 20mg Take 1 [facility] nivers 20 mg 4-06 capsule by [facility] of capsule 00:00: mouth in [place] 00 the Medical morning. Branch triamterene Yes [id number] 1{tbl} Take 1 [facility] -hydrochlor 4-06 tablet by [facility] of othiazid 00:00: mouth in [place] 37.5-25 mg 00 the Medical tablet morning. Branch cloNIDine Yes [id number] .2mg Take 1 [facility] nivers 0.2 mg 4-06 tablet by [facility] of tablet 00:00: mouth 3 [place] 00 (three) Medical times Branch daily as needed (Hypertens ion). Take 1 [facility] TID PRN if BP >150/90 carvediloL Yes [id number] 25mg Take 1 [facility] 25 mg 4-06 tablet by [facility] of tablet 00:00: mouth in [place] 00 the Medical morning Branch and 1 tablet in the evening. Take with meals. TAKE ONE (1) TABLET(S) BY MOUTH TWICE A DAY WITH FOOD. amLODIPine- Yes [id number] 1{capsu Take 1 [facility] benazepriL 4-06 le} capsule by [facility] of 10-40 mg 00:00: mouth in [place] per capsule 00 the Medical morning. Branch tiZANidine Yes [id number] 2mg Take 1 [facility] 2 mg tablet 4-06 tablet by [facility] of 00:00: mouth [place] 00 every 8 Medical (eight) Branch hours as needed (muscle spasms). metFORMIN Yes [id number] TAKE ONE [facility] 1,000 mg 4-06 (1) [facility] of tablet 00:00: TABLET(S) [place] 00 BY MOUTH Medical EVERY Branch TWELVE HOURS WITH MORNING AND EVENING MEALS. atorvastati Yes [id number] 40mg Take 1 [facility] n 40 mg 4-06 tablet by [facility] of tablet 00:00: mouth at [place] 00 bedtime. Medical Branch traZODone Yes [id number] 50mg Take 1 [facility] vers 50 mg 4-06 tablet by [facility] of tablet 00:00: mouth at [place] 00 bedtime. Medical Branch FLUoxetine Yes [id number] 20mg Take 1 [facility] n[facility] 20 mg 4-06 capsule by [facility] of capsule 00:00: mouth in [place] 00 the Medical morning. Branch triamterene Yes [id number] 1{tbl} Take 1 [facility] -hydrochlor 4-06 tablet by [facility] of othiazid 00:00: mouth in [place] 37.5-25 mg 00 the Medical tablet morning. Branch terazosin 5 0 Yes [id number] 5mg Take 1 [facility] mg capsule 4-06 capsule by [facility] of 00:00: mouth [place] 00 every Medical evening. Branch cloNIDine Yes [id number] .2mg Take 1 [facility] nivers 0.2 mg 4-06 tablet by [facility] of tablet 00:00: mouth 3 [place] 00 (three) Medical times Branch daily as needed (Hypertens ion). Take 1 [facility] TID PRN if BP >150/90 carvediloL Yes [id number] 25mg Take 1 [facility] 25 mg 4-06 tablet by [facility] of tablet 00:00: mouth in [place] 00 the Medical morning Branch and 1 tablet in the evening. Take with meals. TAKE ONE (1) TABLET(S) BY MOUTH TWICE A DAY WITH FOOD. amLODIPine- Yes [id number] 1{capsu Take 1 [facility] benazepriL 4-06 le} capsule by [facility] of 10-40 mg 00:00: mouth in [place] per capsule 00 the Medical morning. Branch tiZANidine Yes [id number] 2mg Take 1 [facility] 2 mg tablet 4-06 tablet by [facility] of 00:00: mouth [place] 00 every 8 Medical (eight) Branch hours as needed (muscle spasms). metFORMIN Yes [id number] TAKE ONE [facility] 1,000 mg 4-06 (1) [facility] of tablet 00:00: TABLET(S) [place] 00 BY MOUTH Medical EVERY Branch TWELVE HOURS WITH MORNING AND EVENING MEALS. atorvastati Yes [id number] 40mg Take 1 [facility] n 40 mg 4-06 tablet by [facility] of tablet 00:00: mouth at [place] 00 bedtime. Medical Branch traZODone Yes [id number] 50mg Take 1 [facility] vers 50 mg 4-06 tablet by [facility] of tablet 00:00: mouth at [place] 00 bedtime. Medical Branch FLUoxetine Yes [id number] 20mg Take 1 [facility] nivers 20 mg 4-06 capsule by [facility] of capsule 00:00: mouth in [place] 00 the Medical morning. Branch triamterene Yes [id number] 1{tbl} Take 1 [facility] -hydrochlor 4-06 tablet by [facility] of othiazid 00:00: mouth in [place] 37.5-25 mg 00 the Medical tablet morning. Branch terazosin 5 0 Yes [id number] 5mg Take 1 [facility] mg capsule 4-06 capsule by [facility] of 00:00: mouth [place] 00 every Medical evening. Branch cloNIDine Yes [id number] .2mg Take 1 [facility] nivers 0.2 mg 4-06 tablet by [facility] of tablet 00:00: mouth 3 [place] 00 (three) Medical times Branch daily as needed (Hypertens ion). Take 1 [facility] TID PRN if BP >150/90 carvediloL Yes [id number] 25mg Take 1 [facility] 25 mg 4-06 tablet by [facility] of tablet 00:00: mouth in [place] 00 the Medical morning Branch and 1 tablet in the evening. Take with meals. TAKE ONE (1) TABLET(S) BY MOUTH TWICE A DAY WITH FOOD. amLODIPine- Yes [id number] 1{capsu Take 1 [facility] benazepriL 4-06 le} capsule by [facility] of 10-40 mg 00:00: mouth in [place] per capsule 00 the Medical morning. Branch tiZANidine Yes [id number] 2mg Take 1 [facility] 2 mg tablet 4-06 tablet by [facility] of 00:00: mouth [place] 00 every 8 Medical (eight) Branch hours as needed (muscle spasms). metFORMIN Yes [id number] TAKE ONE [facility] 1,000 mg 4-06 (1) [facility] of tablet 00:00: TABLET(S) [place] 00 BY MOUTH Medical EVERY Branch TWELVE HOURS WITH MORNING AND EVENING MEALS. atorvastati Yes [id number] 40mg Take 1 [facility] n 40 mg 4-06 tablet by [facility] of tablet 00:00: mouth at [place] 00 bedtime. Medical Branch traZODone Yes [id number] 50mg Take 1 [facility] vers 50 mg 4-06 tablet by [facility] of tablet 00:00: mouth at [place] 00 bedtime. Medical Branch FLUoxetine Yes [id number] 20mg Take 1 [facility] nivers 20 mg 4-06 capsule by [facility] of capsule 00:00: mouth in [place] 00 the Medical morning. Branch triamterene Yes [id number] 1{tbl} Take 1 [facility] -hydrochlor 4-06 tablet by [facility] of othiazid 00:00: mouth in [place] 37.5-25 mg 00 the Medical tablet morning. Branch terazosin 5 0 Yes [id number] 5mg Take 1 [facility] mg capsule 4-06 capsule by [facility] of 00:00: mouth [place] 00 every Medical evening. Branch cloNIDine Yes [id number] .2mg Take 1 [facility] nivers 0.2 mg 4-06 tablet by [facility] of tablet 00:00: mouth 3 [place] 00 (three) Medical times Branch daily as needed (Hypertens ion). Take 1 [facility] TID PRN if BP >150/90 carvediloL Yes [id number] 25mg Take 1 [facility] 25 mg 4-06 tablet by [facility] of tablet 00:00: mouth in [place] 00 the Medical morning Branch and 1 tablet in the evening. Take with meals. TAKE ONE (1) TABLET(S) BY MOUTH TWICE A DAY WITH FOOD. amLODIPine- Yes [id number] 1{capsu Take 1 [facility] benazepriL 4-06 le} capsule by [facility] of 10-40 mg 00:00: mouth in [place] per capsule 00 the Medical morning. Branch tiZANidine Yes [id number] 2mg Take 1 [facility] 2 mg tablet 4-06 tablet by [facility] of 00:00: mouth [place] 00 every 8 Medical (eight) Branch hours as needed (muscle spasms). metFORMIN Yes [id number] TAKE ONE [facility] 1,000 mg 4-06 (1) [facility]y of tablet 00:00: TABLET(S) [place] 00 BY MOUTH Medical EVERY Branch TWELVE HOURS WITH MORNING AND EVENING MEALS. atorvastati Yes [id number] 40mg Take 1 [facility] n 40 mg 4-06 tablet by [facility] of tablet 00:00: mouth at [place] 00 bedtime. Medical Branch traZODone Yes [id number] 50mg Take 1 [facility] vers 50 mg 4-06 tablet by [facility] of tablet 00:00: mouth at [place] 00 bedtime. Medical Branch FLUoxetine Yes [id number] 20mg Take 1 [facility] nivers 20 mg 4-06 capsule by [facility] of capsule 00:00: mouth in [place] 00 the Medical morning. Branch triamterene Yes [id number] 1{tbl} Take 1 [facility] -hydrochlor 4-06 tablet by [facility] of othiazid 00:00: mouth in [place] 37.5-25 mg 00 the Medical tablet morning. Branch terazosin 5 2023-0 Yes [id number] 5mg Take 1 [facility] mg capsule 4-06 capsule by [facility] of 00:00: mouth [place] 00 every Medical evening. Branch cloNIDine Yes [id number] .2mg Take 1 [facility] nivers 0.2 mg 4-06 tablet by [facility] of tablet 00:00: mouth 3 [place] 00 (three) Medical times Branch daily as needed (Hypertens ion). Take 1 [facility] TID PRN if BP >150/90 carvediloL 0 Yes [id number] 25mg Take 1 [facility] 25 mg 4-06 tablet by [facility] tablet 00:00: mouth in [place] 00 the Medical morning Branch and 1 tablet in the evening. Take with meals. TAKE ONE (1) TABLET(S) BY MOUTH TWICE A DAY WITH FOOD. amLODIPine- Yes [id number] 1{capsu Take 1 [facility] benazepriL 4-06 le} capsule by [facility] of 10-40 mg 00:00: mouth in [place] per capsule 00 the Medical morning. Branch tiZANidine Yes [id number] 2mg Take 1 [facility] 2 mg tablet 4-06 tablet by [facility] of 00:00: mouth [place] 00 every 8 Medical (eight) Branch hours as needed (muscle spasms). metFORMIN Yes [id number] TAKE ONE [facility] 1,000 mg 4-06 (1) it[facility] of tablet 00:00: TABLET(S) [place] 00 BY MOUTH Medical EVERY Branch TWELVE HOURS WITH MORNING AND EVENING MEALS. atorvastati Yes [id number] 40mg Take 1 [facility] n 40 mg 4-06 tablet by [facility] of tablet 00:00: mouth at [place] 00 bedtime. Medical Branch traZODone 0 Yes [id number] 50mg Take 1 [facility] vers 50 mg 4-06 tablet by [facility] of tablet 00:00: mouth at [place] 00 bedtime. Medical Branch FLUoxetine 0 Yes [id number] 20mg Take 1 [facility] 20 mg 4-06 capsule by [facility] of capsule 00:00: mouth in [place] 00 the Medical morning. Branch triamterene 0 Yes [id number] 1{tbl} Take 1 [facility] -hydrochlor 4-06 tablet by [facility] of othiazid 00:00: mouth in [place] 37.5-25 mg 00 the Medical tablet morning. Branch terazosin 5 Yes [id number] 5mg Take 1 [facility] mg capsule 4-06 capsule by [facility] of 00:00: mouth [place] 00 every Medical evening. Branch cloNIDine Yes [id number] .2mg Take 1 [facility] nivers 0.2 mg 4-06 tablet by [facility] of tablet 00:00: mouth 3 [place] 00 (three) Medical times Branch daily as needed (Hypertens ion). Take 1 [facility] T[facility] PRN if BP >150/90 carvediloL Yes [id number] 25mg Take 1 [facility] 25 mg 4-06 tablet by [facility] of tablet 00:00: mouth in [place] 00 the Medical morning Branch and 1 tablet in the evening. Take with meals. TAKE ONE (1) TABLET(S) BY MOUTH TWICE A DAY WITH FOOD. amLODIPine- Yes [id number] 1{capsu Take 1 [facility] benazepriL 4-06 le} capsule by [facility] of 10-40 mg 00:00: mouth in [place] per capsule 00 the Medical morning. Branch tiZANidine Yes [id number] 2mg Take 1 [facility] 2 mg tablet 4-06 tablet by [facility] of 00:00: mouth [place] 00 every 8 Medical (eight) Branch hours as needed (muscle spasms). metFORMIN Yes [id number] TAKE ONE [facility] 1,000 mg 4-06 (1) it[facility] of tablet 00:00: TABLET(S) [place] 00 BY MOUTH Medical EVERY Branch TWELVE HOURS WITH MORNING AND EVENING MEALS. atorvastati Yes [id number] 40mg Take 1 [facility] n 40 mg 4-06 tablet by [facility] of tablet 00:00: mouth at [place] 00 bedtime. Medical Branch traZODone 0 Yes [id number] 50mg Take 1 [facility] vers 50 mg 4-06 tablet by [facility] of tablet 00:00: mouth at [place] 00 bedtime. Medical Branch FLUoxetine 0 Yes [id number] 20mg Take 1 [facility] 20 mg 4-06 capsule by [facility] of capsule 00:00: mouth in [place] 00 the Medical morning. Branch triamterene Yes [id number] 1{tbl} Take 1 [facility] -hydrochlor 4-06 tablet by [facility] of othiazid 00:00: mouth in [place] 37.5-25 mg 00 the Medical tablet morning. Branch terazosin 5 Yes [id number] 5mg Take 1 [facility] mg capsule 4-06 capsule by [facility] of 00:00: mouth [place] 00 every Medical evening. Branch cloNIDine Yes [id number] .2mg Take 1 [facility] n[facility] 0.2 mg 4-06 tablet by [facility] of tablet 00:00: mouth 3 [place] 00 (three) Medical times Branch daily as needed (Hypertens ion). Take 1 [facility] T[facility] PRN if BP >150/90 carvediloL Yes [id number] 25mg Take 1 [facility] 25 mg 4-06 tablet by [facility] of tablet 00:00: mouth in [place] 00 the Medical morning Branch and 1 tablet in the evening. Take with meals. TAKE ONE (1) TABLET(S) BY MOUTH TWICE A DAY WITH FOOD. amLODIPine- Yes [id number] 1{capsu Take 1 [facility] benazepriL 4-06 le} capsule by [facility] of 10-40 mg 00:00: mouth in [place] per capsule 00 the Medical morning. Branch tiZANidine Yes [id number] 2mg Take 1 [facility] 2 mg tablet 4-06 tablet by [facility] of 00:00: mouth [place] 00 every 8 Medical (eight) Branch hours as needed (muscle spasms). metFORMIN Yes [id number] TAKE ONE [facility] 1,000 mg 4-06 (1) [facility] of tablet 00:00: TABLET(S) [place] 00 BY MOUTH Medical EVERY Branch TWELVE HOURS WITH MORNING AND EVENING MEALS. atorvastati Yes [id number] 40mg Take 1 [facility] n 40 mg 4-06 tablet by [facility] of tablet 00:00: mouth at [place] 00 bedtime. Medical Branch traZODone 0 Yes [id number] 50mg Take 1 [facility] vers 50 mg 4-06 tablet by [facility] of tablet 00:00: mouth at [place] 00 bedtime. Medical Branch FLUoxetine 0 Yes [id number] 20mg Take 1 [facility] n[facility] 20 mg 4-06 capsule by [facility] of capsule 00:00: mouth in [place] 00 the Medical morning. Branch triamterene Yes [id number] 1{tbl} Take 1 [facility] -hydrochlor 4-06 tablet by [facility] of othiazid 00:00: mouth in [place] 37.5-25 mg 00 the Medical tablet morning. Branch terazosin 5 Yes [id number] 5mg Take 1 [facility] mg capsule 4-06 capsule by it[facility] of 00:00: mouth [place] 00 every Medical evening. Branch cloNIDine Yes [id number] .2mg Take 1 [facility] nivers 0.2 mg 4-06 tablet by [facility] of tablet 00:00: mouth 3 [place] 00 (three) Medical times Branch daily as needed (Hypertens ion). Take 1 [facility] TID PRN if BP >150/90 carvediloL Yes [id number] 25mg Take 1 [facility] 25 mg 4-06 tablet by [facility] of tablet 00:00: mouth in [place] 00 the Medical morning Branch and 1 tablet in the evening. Take with meals. TAKE ONE (1) TABLET(S) BY MOUTH TWICE A DAY WITH FOOD. amLODIPine- Yes [id number] 1{capsu Take 1 [facility] benazepriL 4-06 le} capsule by [facility] of 10-40 mg 00:00: mouth in [place] per capsule 00 the Medical morning. Branch tiZANidine Yes [id number] 2mg Take 1 [facility] 2 mg tablet 4-06 tablet by [facility] of 00:00: mouth [place] 00 every 8 Medical (eight) Branch hours as needed (muscle spasms). metFORMIN Yes [id number] TAKE ONE [facility] 1,000 mg 4-06 (1) [facility] of tablet 00:00: TABLET(S) [place] 00 BY MOUTH Medical EVERY Branch TWELVE HOURS WITH MORNING AND EVENING MEALS. atorvastati Yes [id number] 40mg Take 1 [facility] n 40 mg 4-06 tablet by [facility] of tablet 00:00: mouth at [place] 00 bedtime. Medical Branch traZODone 0 Yes [id number] 50mg Take 1 [facility] vers 50 mg 4-06 tablet by [facility] of tablet 00:00: mouth at [place] 00 bedtime. Medical Branch FLUoxetine 0 Yes [id number] 20mg Take 1 [facility] 20 mg 4-06 capsule by [facility] of capsule 00:00: mouth in [place] 00 the Medical morning. Branch triamterene Yes [id number] 1{tbl} Take 1 [facility] -hydrochlor 4-06 tablet by [facility] of othiazid 00:00: mouth in [place] 37.5-25 mg 00 the Medical tablet morning. Branch terazosin 5 Yes [id number] 5mg Take 1 [facility] mg capsule 4-06 capsule by [facility] of 00:00: mouth [place] 00 every Medical evening. Branch cloNIDine Yes [id number] .2mg Take 1 [facility] nivers 0.2 mg 4-06 tablet by [facility] of tablet 00:00: mouth 3 [place] 00 (three) Medical times Branch daily as needed (Hypertens ion). Take 1 [facility] TID PRN if BP >150/90 carvediloL Yes [id number] 25mg Take 1 [facility] 25 mg 4-06 tablet by [facility] of tablet 00:00: mouth in [place] 00 the Medical morning Branch and 1 tablet in the evening. Take with meals. TAKE ONE (1) TABLET(S) BY MOUTH TWICE A DAY WITH FOOD. amLODIPine- Yes [id number] 1{capsu Take 1 [facility] benazepriL 4-06 le} capsule by [facility] of 10-40 mg 00:00: mouth in [place] per capsule 00 the Medical morning. Branch tiZANidine Yes [id number] 2mg Take 1 [facility] 2 mg tablet 4-06 tablet by [facility] of 00:00: mouth [place] 00 every 8 Medical (eight) Branch hours as needed (muscle spasms). metFORMIN Yes [id number] TAKE ONE [facility] 1,000 mg 4-06 (1) ity of tablet 00:00: TABLET(S) [place] 00 BY MOUTH Medical EVERY Branch TWELVE HOURS WITH MORNING AND EVENING MEALS. atorvastati Yes [id number] 40mg Take 1 [facility] n 40 mg 4-06 tablet by [facility] of tablet 00:00: mouth at [place] 00 bedtime. Medical Branch traZODone Yes [id number] 50mg Take 1 [facility] vers 50 mg 4-06 tablet by [facility] of tablet 00:00: mouth at [place] 00 bedtime. Medical Branch FLUoxetine Yes [id number] 20mg Take 1 [facility] 20 mg 4-06 capsule by [facility] of capsule 00:00: mouth in [place] 00 the Medical morning. Branch triamterene Yes [id number] 1{tbl} Take 1 [facility] -hydrochlor 4-06 tablet by it[facility] of othiazid 00:00: mouth in [place] 37.5-25 mg 00 the Medical tablet morning. Branch terazosin 5 Yes [id number] 5mg Take 1 [facility] mg capsule 4-06 capsule by it[facility] of 00:00: mouth [place] 00 every Medical evening. Branch cloNIDine 0 Yes [id number] .2mg Take 1 [facility] nivers 0.2 mg 4-06 tablet by [facility] of tablet 00:00: mouth 3 [place] 00 (three) Medical times Branch daily as needed (Hypertens ion). Take 1 [facility] TID PRN if BP >150/90 carvediloL Yes [id number] 25mg Take 1 [facility] 25 mg 4-06 tablet by [facility] of tablet 00:00: mouth in [place] 00 the Medical morning Branch and 1 tablet in the evening. Take with meals. TAKE ONE (1) TABLET(S) BY MOUTH TWICE A DAY WITH FOOD. amLODIPine- Yes [id number] 1{capsu Take 1 [facility] benazepriL 4-06 le} capsule by [facility] of 10-40 mg 00:00: mouth in [place] per capsule 00 the Medical morning. Branch tiZANidine Yes [id number] 2mg Take 1 [facility] 2 mg tablet 4-06 tablet by ity of 00:00: mouth [place] 00 every 8 Medical (eight) Branch hours as needed (muscle spasms). metFORMIN Yes [id number] TAKE ONE [facility] 1,000 mg 4-06 (1) it[facility] of tablet 00:00: TABLET(S) [place] 00 BY MOUTH Medical EVERY Branch TWELVE HOURS WITH MORNING AND EVENING MEALS. atorvastati Yes [id number] 40mg Take 1 [facility] n 40 mg 4-06 tablet by it[facility] of tablet 00:00: mouth at [place] 00 bedtime. Medical Branch traZODone 0 Yes [id number] 50mg Take 1 [facility] vers 50 mg 4-06 tablet by [facility] of tablet 00:00: mouth at [place] 00 bedtime. Medical Branch FLUoxetine Yes [id number] 20mg Take 1 [facility] n[facility] 20 mg 4-06 capsule by [facility] of capsule 00:00: mouth in [place] 00 the Medical morning. Branch triamterene 2023-0 Yes [id number] 1{tbl} Take 1 [facility] -hydrochlor 4-06 tablet by ity of othiazid 00:00: mouth in [place] 37.5-25 mg 00 the Medical tablet morning. Branch terazosin 5 0 Yes [id number] 5mg Take 1 [facility] mg capsule 4-06 capsule by it[facility] of 00:00: mouth [place] 00 every Medical evening. Branch cloNIDine 0 Yes [id number] .2mg Take 1 [facility] nivers 0.2 mg 4-06 tablet by it[facility] of tablet 00:00: mouth 3 [place] 00 (three) Medical times Branch daily as needed (Hypertens ion). Take 1 [facility] TID PRN if BP >150/90 carvediloL Yes [id number] 25mg Take 1 [facility] 25 mg 4-06 tablet by it[facility] of tablet 00:00: mouth in [place] 00 the Medical morning Branch and 1 tablet in the evening. Take with meals. TAKE ONE (1) TABLET(S) BY MOUTH TWICE A DAY WITH FOOD. amLODIPine- Yes [id number] 1{capsu Take 1 [facility] benazepriL 4-06 le} capsule by it[facility] of 10-40 mg 00:00: mouth in [place] per capsule 00 the Medical morning. Branch tiZANidine Yes [id number] 2mg Take 1 [facility] 2 mg tablet 4-06 tablet by ity of 00:00: mouth [place] 00 every 8 Medical (eight) Branch hours as needed (muscle spasms). metFORMIN 0 Yes [id number] TAKE ONE [facility] 1,000 mg 4-06 (1) ity of tablet 00:00: TABLET(S) [place] 00 BY MOUTH Medical EVERY Branch TWELVE HOURS WITH MORNING AND EVENING MEALS. atorvastati Yes [id number] 40mg Take 1 [facility] n 40 mg 4-06 tablet by ity of tablet 00:00: mouth at [place] 00 bedtime. Medical Branch traZODone Yes [id number] 50mg Take 1 [facility] vers 50 mg 4-06 tablet by it[facility] of tablet 00:00: mouth at [place] 00 bedtime. Medical Branch FLUoxetine 0 Yes [id number] 20mg Take 1 [facility] nivers 20 mg 4-06 capsule by ity of capsule 00:00: mouth in [place] 00 the Medical morning. Branch terazosin 5 0 3- No [id number] 5mg Take 1 [facility] mg capsule 11-18 capsule by it y of 00:00: 00:00 mouth [place] 00 :00 every Medical evening. Branch terazosin 5 2022-0 2022- No [id number] 5mg Take 1 [facility] mg capsule 11-18 capsule by it y of 00:00: 00:00 mouth [place] 00 :00 every Medical evening. Branch terazosin 5 2022-0 2022- No [id number] 5mg Take 1 [facility] mg capsule 11-18 capsule by it y of 00:00: 00:00 mouth [place] 00 :00 every Medical evening. Branch terazosin 5 2022-0 2022- No [id number] 5mg Take 1 [facility] mg capsule 11-18 capsule by it y of 00:00: 00:00 mouth [place] 00 :00 every Medical evening. Branch HYDRALAZINE 2022-0 Yes TAKE ONE Un luis f 50 mg 3-13 (1) TABLET ity of tablet 00:00: BY MOUTH [place] 00 IN THE Medical MORNING Branch AND 1 TABLET AT NOON AND 1 TABLET IN THE EVENING. HYDRALAZINE 2022-0 Yes TAKE ONE Un luis f 50 mg 3-13 (1) TABLET ity of tablet 00:00: BY MOUTH [place] 00 IN THE Medical MORNING Branch AND 1 TABLET AT NOON AND 1 TABLET IN THE EVENING. HYDRALAZINE 2022-0 Yes TAKE ONE [facility] l[facility] f 50 mg 3-13 (1) TABLET ity of tablet 00:00: BY MOUTH [place] 00 IN THE Medical MORNING Branch AND 1 TABLET AT NOON AND 1 TABLET IN THE EVENING. HYDRALAZINE 2022-0 Yes TAKE ONE Un luis f 50 mg 3-13 (1) TABLET ity of tablet 00:00: BY MOUTH [place] 00 IN THE Medical MORNING Branch AND 1 TABLET AT NOON AND 1 TABLET IN THE EVENING. HYDRALAZINE 3-0 Yes TAKE ONE Un l[facility] f 50 mg 3-13 (1) TABLET ity of tablet 00:00: BY MOUTH [place] 00 IN THE Medical MORNING Branch AND 1 TABLET AT NOON AND 1 TABLET IN THE EVENING. HYDRALAZINE 3-0 Yes TAKE ONE [facility] l[facility] f 50 mg 3-13 (1) TABLET ity of tablet 00:00: BY MOUTH [place] 00 IN THE Medical MORNING Branch AND 1 TABLET AT NOON AND 1 TABLET IN THE EVENING. HYDRALAZINE 2023-0 Yes TAKE ONE Un l[facility] f 50 mg 3-13 (1) TABLET ity of tablet 00:00: BY MOUTH [place] 00 IN THE Medical MORNING Branch AND 1 TABLET AT NOON AND 1 TABLET IN THE EVENING. HYDRALAZINE 3-0 Yes TAKE ONE Un luis f 50 mg 3-13 (1) TABLET ity of tablet 00:00: BY MOUTH [place] 00 IN THE Medical MORNING Branch AND 1 TABLET AT NOON AND 1 TABLET IN THE EVENING. HYDRALAZINE 3-0 Yes TAKE ONE Un l[facility] f 50 mg 3-13 (1) TABLET ity of tablet 00:00: BY MOUTH [place] 00 IN THE Medical MORNING Branch AND 1 TABLET AT NOON AND 1 TABLET IN THE EVENING. HYDRALAZINE 3-0 Yes TAKE ONE Un luis f 50 mg 3-13 (1) TABLET ity of tablet 00:00: BY MOUTH [place] 00 IN THE [facility] MORNING Branch AND 1 TABLET AT NOON AND 1 TABLET IN THE EVENING. HYDRALAZINE 3-0 Yes TAKE ONE Un luis f 50 mg 3-13 (1) TABLET ity of tablet 00:00: BY MOUTH [place] 00 IN THE [facility] MORNING Branch AND 1 TABLET AT NOON AND 1 TABLET IN THE EVENING. HYDRALAZINE 3-0 Yes TAKE ONE Un luis f 50 mg 3-13 (1) TABLET ity of tablet 00:00: BY MOUTH [place] 00 IN THE [facility] MORNING Branch AND 1 TABLET AT NOON AND 1 TABLET IN THE EVENING. HYDRALAZINE 3-0 Yes TAKE ONE Un luis f 50 mg 3-13 (1) TABLET ity of tablet 00:00: BY MOUTH [place] 00 IN THE [facility] MORNING Branch AND 1 TABLET AT NOON AND 1 TABLET IN THE EVENING. HYDRALAZINE 3-0 Yes TAKE ONE Un luis f 50 mg 3-13 (1) TABLET ity of tablet 00:00: BY MOUTH [place] 00 IN THE [facility] MORNING Branch AND 1 TABLET AT NOON AND 1 TABLET IN THE EVENING. HYDRALAZINE 3-0 Yes TAKE ONE Un luis f 50 mg 3-13 (1) TABLET ity of tablet 00:00: BY MOUTH [place] 00 IN THE [facility] MORNING Branch AND 1 TABLET AT NOON AND 1 TABLET IN THE EVENING. HYDRALAZINE 2023-0 Yes TAKE ONE Un luis f 50 mg 3-13 (1) TABLET ity of tablet 00:00: BY MOUTH [place] 00 IN THE Medical MORNING Branch AND 1 TABLET AT NOON AND 1 TABLET IN THE EVENING. HYDRALAZINE 2022-0 Yes TAKE ONE [facility] f 50 mg 3-13 (1) TABLET ity of tablet 00:00: BY MOUTH [place] 00 IN THE Medical MORNING Branch AND 1 TABLET AT NOON AND 1 TABLET IN THE EVENING. HYDRALAZINE 2022-0 Yes TAKE ONE [facility] l[facility] f 50 mg 3-13 (1) TABLET ity of tablet 00:00: BY MOUTH [place] 00 IN THE [facility] MORNING Branch AND 1 TABLET AT NOON AND 1 TABLET IN THE EVENING. HYDRALAZINE 0 Yes TAKE ONE Un luis f 50 mg 3-13 (1) TABLET ity of tablet 00:00: BY MOUTH [place] 00 IN THE [facility] MORNING Branch AND 1 TABLET AT NOON AND 1 TABLET IN THE EVENING. HYDRALAZINE 2022-0 Yes TAKE ONE [facility] luis f 50 mg 3-13 (1) TABLET ity of tablet 00:00: BY MOUTH [place] 00 IN THE [facility] Branch AND 1 TABLET AT NOON AND 1 TABLET IN THE EVENING. HYDRALAZINE 2022-0 Yes TAKE ONE Un luis f 50 mg 3-13 (1) TABLET ity of tablet 00:00: BY MOUTH [place] 00 IN THE [facility] Branch AND 1 TABLET AT NOON AND 1 TABLET IN THE EVENING. HYDRALAZINE 2022-0 Yes TAKE ONE Un luis f 50 mg 3-13 (1) TABLET ity of tablet 00:00: BY MOUTH [place] 00 IN THE [facility] Branch AND 1 TABLET AT NOON AND 1 TABLET IN THE EVENING. HYDRALAZINE 2022-0 Yes TAKE ONE Un luis f 50 mg 3-13 (1) TABLET ity of tablet 00:00: BY MOUTH [place] 00 IN THE [facility] MORNING Branch AND 1 TABLET AT NOON AND 1 TABLET IN THE EVENING. HYDRALAZINE 0 2022- No TAKE ONE U nivers 50 mg 3-13 07-20 (1) TABLET ity of tablet 00:00: 00:00 BY MOUTH [place] 00 :00 IN THE [facility] Branch AND 1 TABLET AT NOON AND 1 TABLET IN THE EVENING. HYDRALAZINE 0 2022- No TAKE ONE U nivers 50 mg 3-13 07-20 (1) TABLET ity of tablet 00:00: 00:00 BY MOUTH [place] 00 :00 IN THE Medical MORNING Branch AND 1 TABLET AT NOON AND 1 TABLET IN THE EVENING. HYDRALAZINE 2022- No TAKE ONE U nivers 50 mg 3-24 02-20 (1) TABLET ity of tablet 00:00: 00:00 BY MOUTH [place] 00 :00 IN THE Medical MORNING Branch AND 1 TABLET AT NOON AND 1 TABLET IN THE EVENING. HYDRALAZINE 2022- No TAKE ONE U nivers 50 mg 10-25-20 (1) TABLET ity of tablet 00:00: 00:00 BY MOUTH [place] 00 :00 IN THE Medical MORNING Branch AND 1 TABLET AT NOON AND 1 TABLET IN THE EVENING. hydrALAZINE 2021-08 Yes [id number] 100mg Take 1 [facility] 100 mg 2-21 tablet by ity of tablet 00:00: mouth in [place] 00 the [facility] morning Branch and 1 tablet at noon and 1 tablet in the evening. hydrALAZINE 2021-08 Yes [id number] 100mg Take 1 [facility] 100 mg 2-21 tablet by ity of tablet 00:00: mouth in [place] [address] the [facility] morning Branch and 1 tablet at noon and 1 tablet in the evening. hydrALAZINE 2021-08 Yes [id number] 100mg Take 1 [facility] 100 mg 2-21 tablet by ity of tablet 00:00: mouth in [place] 00 the Medical morning Branch and 1 tablet at noon and 1 tablet in the evening. hydrALAZINE 2021-08 Yes [id number] 100mg Take 1 [facility] 100 mg 2-21 tablet by ity of tablet 00:00: mouth in [place] 00 the Medical morning Branch and 1 tablet at noon and 1 tablet in the evening. hydrALAZINE 2021-08 Yes [id number] 100mg Take 1 [facility] 100 mg 2-21 tablet by ity of tablet 00:00: mouth in [place] [address] the [facility] morning Branch and 1 tablet at noon and 1 tablet in the evening. hydrALAZINE 2021-08 Yes [id number] 100mg Take 1 [facility] 100 mg 2-21 tablet by ity of tablet 00:00: mouth in [place] [address] the [facility] morning Branch and 1 tablet at noon and 1 tablet in the evening. hydrALAZINE 2021-08 Yes [id number] 100mg Take 1 [facility] 100 mg 2-21 tablet by ity of tablet 00:00: mouth in [address] morning [place] and 1 tablet at noon and 1 tablet in the evening. hydrALAZINE 2021-08 Yes [id number] 100mg Take 1 [facility] 100 mg 2-21 tablet by ity of tablet 00:00: mouth in [address] morning [place] and 1 tablet at noon and 1 tablet in the evening. hydrALAZINE 2021-08 Yes [id number] 100mg Take 1 [facility] 100 mg 2-21 tablet by ity of tablet 00:00: mouth in [address] morning [place] and 1 tablet at noon and 1 tablet in the evening. hydrALAZINE 2021-08 Yes [id number] 100mg Take 1 [facility] 100 mg 2-21 tablet by ity of tablet 00:00: mouth in [address] and 1 tablet at noon and 1 tablet in the evening. hydrALAZINE 2021-08 Yes [id number] 100mg Take 1 [facility] 100 mg 2-21 tablet by ity of tablet 00:00: mouth in [address] and 1 tablet at noon and 1 tablet in the evening. hydrALAZINE 2021-08 Yes [id number] 100mg Take 1 [facility] 100 mg 2-21 tablet by ity of tablet 00:00: mouth in [address] and 1 tablet at noon and 1 tablet in the evening. hydrALAZINE 2021-08 Yes [id number] 100mg Take 1 [facility] 100 mg 2-21 tablet by ity of tablet 00:00: mouth in [address] and 1 tablet at noon and 1 tablet in the evening. hydrALAZINE 2021-08 Yes [id number] 100mg Take 1 [facility] 100 mg 2-21 tablet by ity of tablet 00:00: mouth in [address] and 1 tablet at noon and 1 tablet in the evening. hydrALAZINE 2021-08 Yes [id number] 100mg Take 1 [facility] 100 mg 2-21 tablet by ity of tablet 00:00: mouth in [address] and 1 tablet at noon and 1 tablet in the evening. hydrALAZINE 2021-08 Yes [id number] 100mg Take 1 [facility] 100 mg 2-21 tablet by ity of tablet 00:00: mouth in [address] morning [place] and 1 tablet at noon and 1 tablet in the evening. hydrALAZINE 2021-08 Yes [id number] 100mg Take 1 [facility] 100 mg 2-21 tablet by ity of tablet 00:00: mouth in [address] and 1 tablet at noon and 1 tablet in the evening. hydrALAZINE 2021-08 Yes [id number] 100mg Take 1 [facility] 100 mg 2-21 tablet by ity of tablet 00:00: mouth in [address] and 1 tablet at noon and 1 tablet in the evening. hydrALAZINE 2021-08 Yes [id number] 100mg Take 1 [facility] 100 mg 2-21 tablet by ity of tablet 00:00: mouth in [address] and 1 tablet at noon and 1 tablet in the evening. hydrALAZINE 2021-08 Yes [id number] 100mg Take 1 [facility] 100 mg 2-21 tablet by ity of tablet 00:00: mouth in [address] and 1 tablet at noon and 1 tablet in the evening. hydrALAZINE 2021-08 Yes [id number] 100mg Take 1 [facility] 100 mg 2-21 tablet by ity of tablet 00:00: mouth in [address] and 1 tablet at noon and 1 tablet in the evening. hydrALAZINE 2021-08 Yes [id number] 100mg Take 1 [facility] 100 mg 2-21 tablet by ity of tablet 00:00: mouth in [address] and 1 tablet at noon and 1 tablet in the evening. hydrALAZINE 2021-08 Yes [id number] 100mg Take 1 [facility] 100 mg 2-21 tablet by ity of tablet 00:00: mouth in [address] and 1 tablet at noon and 1 tablet in the evening. hydrALAZINE 2021-08 Yes [id number] 100mg Take 1 [facility] 100 mg 2-21 tablet by ity of tablet 00:00: mouth in [address] and 1 tablet at noon and 1 tablet in the evening. hydrALAZINE 2021-08 Yes [id number] 100mg Take 1 [facility] 100 mg 2-21 tablet by ity of tablet 00:00: mouth in [address] and 1 tablet at noon and 1 tablet in the evening. hydrALAZINE 2021-08 Yes [id number] 100mg Take 1 [facility] 100 mg 2-21 tablet by ity of tablet 00:00: mouth in [place] 00 the Medical morning Branch and 1 tablet at noon and 1 tablet in the evening. hydrALAZINE 2021-08 Yes [id number] 100mg Take 1 [facility] 100 mg 2-21 tablet by ity of tablet 00:00: mouth in [place] 00 the Medical morning Branch and 1 tablet at noon and 1 tablet in the evening. hydrALAZINE 2021-08 Yes [id number] 100mg Take 1 [facility] 100 mg 2-21 tablet by ity of tablet 00:00: mouth in [place] 00 the Medical morning Branch and 1 tablet at noon and 1 tablet in the evening. hydrALAZINE 2021-08 Yes [id number] 100mg Take 1 [facility] 100 mg 2-21 tablet by ity of tablet 00:00: mouth in [place] 00 the Medical morning Branch and 1 tablet at noon and 1 tablet in the evening. hydrALAZINE 2021-08 Yes [id number] 100mg Take 1 [facility] 100 mg 2-21 tablet by ity of tablet 00:00: mouth in [place] 00 the Medical morning Branch and 1 tablet at noon and 1 tablet in the evening. hydrALAZINE 2021-08- No [id number] 100mg Take 1 [facility] 100 mg 2-21 07-20 tablet by ity of tablet 00:00: 00:00 mouth in [place] 00 :00 the [facility] morning [place] and 1 tablet at noon and 1 tablet in the evening. hydrALAZINE 2021-08- No [id number] 100mg Take 1 [facility] 100 mg 2-21 07-20 tablet by ity of tablet 00:00: 00:00 mouth in [place] 00 :00 the Medical morning Branch and 1 tablet at noon and 1 tablet in the evening. hydrALAZINE 2021-08- No [id number] 100mg Take 1 [facility] 100 mg 2-21 07-20 tablet by ity of tablet 00:00: 00:00 mouth in [place] 00 :00 the Medical morning Branch and 1 tablet at noon and 1 tablet in the evening. hydrALAZINE 2021-08- No [id number] 100mg Take 1 [facility] 100 mg 2-21 07-20 tablet by ity of tablet 00:00: 00:00 mouth in [place] 00 :00 the Medical morning Branch and 1 tablet at noon and 1 tablet in the evening. lidocaine 5 2021-08 Yes [id number] Apply 2g [facility] % ointment 2-12 to ity of 00:00: affected [place] 00 areas BID Medical PRN Branch lidocaine 5 2021-08 Yes [id number] Apply 2g [facility] % ointment 2-12 to ity of 00:00: affected [place] 00 areas BID Medical PRN Branch lidocaine 5 2021-08 Yes [id number] Apply 2g [facility] % ointment 2-12 to ity of 00:00: affected [place] 00 areas BID Medical PRN Branch lidocaine 5 2021-08 Yes [id number] Apply 2g [facility] % ointment 2-12 to ity of 00:00: affected [place] 00 areas BID Medical PRN Branch lidocaine 5 2021-08 Yes [id number] Apply 2g [facility] % ointment 2-12 to ity of 00:00: affected [place] 00 areas BID Medical PRN Branch lidocaine 5 2021-08 Yes [id number] Apply 2g [facility] % ointment 2-12 to ity of 00:00: affected [place] 00 areas BID Medical PRN Branch lidocaine 5 2021-08 Yes [id number] Apply 2g [facility] % ointment 2-12 to ity of 00:00: affected [place] 00 areas BID Medical PRN Branch lidocaine 5 2021-08 Yes [id number] Apply 2g [facility] % ointment 2-12 to ity of 00:00: affected [place] 00 areas BID Medical PRN Branch lidocaine 5 2021-08 Yes [id number] Apply 2g [facility] % ointment 2-12 to ity of 00:00: affected [place] 00 areas BID Medical PRN Branch lidocaine 5 2021-08 Yes [id number] Apply 2g [facility] % ointment 2-12 to ity of 00:00: affected [place] 00 areas BID Medical PRN Branch lidocaine 5 2021-08 Yes [id number] Apply 2g [facility] % ointment 2-12 to ity of 00:00: affected [place] 00 areas BID Medical PRN Branch lidocaine 5 2021-08 Yes [id number] Apply 2g [facility] % ointment 2-12 to ity of 00:00: affected [place] 00 areas BID Medical PRN Branch lidocaine 5 2021-08 Yes [id number] Apply 2g [facility] % ointment 2-12 to ity of 00:00: affected [place] 00 areas BID Medical PRN Branch lidocaine 5 2021- Yes [id number] Apply 2g [facility] % ointment 2-12 to ity of 00:00: affected [place] 00 areas BID Medical PRN Branch lidocaine 5 2021- Yes [id number] Apply 2g [facility] % ointment 2-12 to ity of 00:00: affected [place] 00 areas BID Medical PRN Branch lidocaine 5 2021- Yes [id number] Apply 2g [facility] % ointment 2-12 to ity of 00:00: affected [place] 00 areas BID Medical PRN Branch lidocaine 5 2021- Yes [id number] Apply 2g [facility] % ointment 2-12 to ity of 00:00: affected [place] 00 areas BID Medical PRN Branch lidocaine 5 2021- Yes [id number] Apply 2g [facility] % ointment 2-12 to ity of 00:00: affected [place] 00 areas BID Medical PRN Branch lidocaine 5 2021- Yes [id number] Apply 2g [facility] % ointment 2-12 to ity of 00:00: affected [place] 00 areas BID Medical PRN Branch lidocaine 5 2021- Yes [id number] Apply 2g [facility] % ointment 2-12 to ity of 00:00: affected [place] 00 areas BID Medical PRN Branch lidocaine 5 2021- Yes [id number] Apply 2g [facility] % ointment 2-12 to ity of 00:00: affected [place] 00 areas BID Medical PRN Branch lidocaine 5 2021- Yes [id number] Apply 2g [facility] % ointment 2-12 to ity of 00:00: affected [place] 00 areas BID Medical PRN Branch lidocaine 5 2021- Yes [id number] Apply 2g [facility] % ointment 2-12 to ity of 00:00: affected [place] 00 areas BID Medical PRN Branch lidocaine 5 2021- Yes [id number] Apply 2g [facility] % ointment 2-12 to ity of 00:00: affected [place] 00 areas BID Medical PRN Branch lidocaine 5 2021- Yes [id number] Apply 2g [facility] % ointment 2-12 to ity of 00:00: affected [place] 00 areas BID Medical PRN Branch lidocaine 5 2021-08 Yes [id number] Apply 2g [facility] % ointment 2-12 to ity of 00:00: affected [place] 00 areas BID Medical PRN Branch lidocaine 5 2021- Yes [id number] Apply 2g [facility] % ointment 2-12 to ity of 00:00: affected [place] 00 areas BID Medical PRN Branch lidocaine 5 2021- Yes [id number] Apply 2g [facility] % ointment 2-12 to ity of 00:00: affected [place] 00 areas BID Medical PRN Branch lidocaine 5 2021- Yes [id number] Apply 2g [facility] % ointment 2-12 to ity of 00:00: affected [place] 00 areas BID Medical PRN Branch lidocaine 5 2021- Yes [id number] Apply 2g [facility] % ointment 2-12 to ity of 00:00: affected [place] 00 areas BID Medical PRN Branch lidocaine 5 2021- Yes [id number] Apply 2g [facility] % ointment 2-12 to ity of 00:00: affected [place] 00 areas BID Medical PRN Branch lidocaine 5 2021- Yes [id number] Apply 2g [facility] % ointment 2-12 to ity of 00:00: affected [place] 00 areas BID Medical PRN Branch lidocaine 5 2021- Yes [id number] Apply 2g [facility] % ointment 2-12 to ity of 00:00: affected [place] 00 areas BID Medical PRN Branch lidocaine 5 2021- Yes [id number] Apply 2g [facility] % ointment 2-12 to ity of 00:00: affected [place] 00 areas BID Medical PRN Branch lidocaine 5 2021- Yes [id number] Apply 2g [facility] % ointment 2-12 to ity of 00:00: affected [place] 00 areas BID Medical PRN Branch lidocaine 5 2021- Yes [id number] Apply 2g [facility] % ointment 2-12 to ity of 00:00: affected [place] 00 areas BID Medical PRN Branch lidocaine 5 2021- Yes [id number] Apply 2g [facility] % ointment 2-12 to ity of 00:00: affected [place] 00 areas BID Medical PRN Branch lidocaine 5 2021- Yes [id number] Apply 2g [facility] % ointment 2-12 to ity of 00:00: affected [place] 00 areas BID Medical PRN Branch lidocaine 5 2021- Yes [id number] Apply 2g [facility] % ointment 2-12 to ity of 00:00: affected [place] 00 areas BID Medical PRN Branch lidocaine 5 2021-08 Yes [id number] Apply 2g [facility] % ointment 2-12 to ity of 00:00: affected [place] 00 areas BID Medical PRN Branch lidocaine 5 2021-08 Yes [id number] Apply 2g [facility] % ointment 2-12 to ity of 00:00: affected [place] 00 areas BID Medical PRN Branch lidocaine 5 2021-08 Yes [id number] Apply 2g [facility] % ointment 2-12 to ity of 00:00: affected [place] 00 areas BID Medical PRN Branch lidocaine 5 2021-08 Yes [id number] Apply 2g [facility] % ointment 2-12 to ity of 00:00: affected [place] 00 areas BID Medical PRN Branch lidocaine 5 2021-08- No [id number] Apply 2g [facility] % ointment -05-13 to ity of 00:00: 00:00 affected [place] 00 :00 areas BID Medical PRN Branch lidocaine 5 2021-08- No [id number] Apply 2g [facility] % ointment -05-13 to ity of 00:00: 00:00 affected [place] 00 :00 areas BID Medical PRN Branch lidocaine 5 2021-08- No [id number] Apply 2g [facility] % ointment -05-13 to ity of 00:00: 00:00 affected [place] 00 :00 areas BID Medical PRN Branch lidocaine 5 2021-08- No [id number] Apply 2g [facility] % ointment 09-26 to ity of 00:00: 00:00 affected [place] 00 :00 areas BID Medical PRN Branch ketorolac 2021-08- No [id number] 30mg [facility] (TORADOL) 09-1330 ity of injection 16:30: 15:35 [place] 30 mg 00 :00 Medical Branch ketorolac 2021-08- No [id number] 30mg 30 mg, [facility] (TORADOL) 09-1330 Intramus[facility] ity of injection 16:30: 15:35 [place], ONCE, [place] 30 mg 00 :00 1 dose, On Medical Wed Branch 07/14/22 at 1030, Routine ketorolac 2021-08- No [id number] 30mg [facility] (TORADOL) 1-30 11-30 ity of injection 16:30: 15:35 [place] 30 mg 00 :00 Medical Branch ketorolac 2021-08 [id number] 30mg 30 mg, [facility] (TORADOL) 09-13 1130 Intramuscu ity of injection 16:30: 15:35 [place], ONCE, [place] 30 mg 00 :00 1 dose, On Medical Wed Branch 07/14/22 at 1030, Routine tiZANidine 2021-08 Yes [id number] 2mg Take 1 [facility] 2 mg tablet 1-30 tablet by ity of 00:00: mouth [place] 00 every 8 Medical (eight) Branch hours as needed (muscle spasms). Lidocaine 5 2021-08 Yes [id number] Apply to [facility] % cream 1-30 area(s) 2 ity of 00:00: (two) [place] 00 times Medical daily as Branch needed for Pain (scale 4-6). Apply 5g to affected areas BID PRN Diclofenac 2021-08 Yes [id number] Apply 4g [facility] Sodium 1-30 to ity of (VOLTAREN) 00:00: affected [place] % gel 00 area QID Medical Branch traMADoL 50 2021-08 Yes [id number] 50mg Take 1 [facility] ers mg tablet 1-30 tablet by ity o f 00:00: mouth [place] 00 every 8 Medical (eight) Branch hours as needed for Pain (scale 7-10). Indication s: chronic pain FLUoxetine 2021-08 Yes [id number] 20mg Take 1 [facility] nivers 20 mg 1-30 capsule by ity of capsule 00:00: mouth in [place] 00 the Medical morning. Branch traZODone 2021-08 Yes [id number] 50mg Take 1 [facility] vers 50 mg 1-30 tablet by ity of tablet 00:00: mouth at [place] 00 bedtime. Medical Branch tiZANidine 2021-08 Yes [id number] 2mg Take 1 [facility] 2 mg tablet 1-30 tablet by ity of 00:00: mouth [place] 00 every 8 Medical (eight) Branch hours as needed (muscle spasms). Lidocaine 5 2021-08 Yes [id number] Apply to [facility] % cream 1-30 area(s) 2 ity of 00:00: (two) [place] 00 times Medical daily as Branch needed for Pain (scale 4-6). Apply 5g to affected areas BID PRN Diclofenac 2021-08 Yes [id number] Apply 4g [facility] Sodium 1-30 to ity of (VOLTAREN) 00:00: affected [place] % gel 00 area QID Medical Branch traMADoL 50 2021-08 Yes [id number] 50mg Take 1 [facility] ers mg tablet 1-30 tablet by ity o f 00:00: mouth [place] 00 every 8 Medical (eight) Branch hours as needed for Pain (scale 7-10). Indication s: chronic pain FLUoxetine 2021-08 Yes [id number] 20mg Take 1 [facility] nivers 20 mg 1-30 capsule by ity of capsule 00:00: mouth in [place] 00 the Medical morning. Branch traZODone 2021-08 Yes [id number] 50mg Take 1 [facility] vers 50 mg 1-30 tablet by ity of tablet 00:00: mouth at [place] 00 bedtime. Medical Branch tiZANidine 2021-08 Yes [id number] 2mg Take 1 [facility] 2 mg tablet 1-30 tablet by ity of 00:00: mouth [place] 00 every 8 Medical (eight) Branch hours as needed (muscle spasms). Lidocaine 5 2021-08 Yes [id number] Apply to [facility] % cream 1-30 area(s) 2 ity of 00:00: (two) [place] 00 times Medical daily as Branch needed for Pain (scale 4-6). Apply 5g to affected areas BID PRN Diclofenac 2021-08 Yes [id number] Apply 4g [facility] Sodium 1-30 to ity of (VOLTAREN) 00:00: affected [place] % gel 00 area QID Medical Branch traMADoL 50 2021-08 Yes [id number] 50mg Take 1 [facility] ers mg tablet 1-30 tablet by ity o f 00:00: mouth [place] 00 every 8 Medical (eight) Branch hours as needed for Pain (scale 7-10). Indication s: chronic pain FLUoxetine 2021-08 Yes [id number] 20mg Take 1 [facility] nivers 20 mg 1-30 capsule by ity of capsule 00:00: mouth in [place] 00 the Medical morning. Branch traZODone 2021-08 Yes [id number] 50mg Take 1 [facility] vers 50 mg 1-30 tablet by ity of tablet 00:00: mouth at [place] 00 bedtime. Medical Branch tiZANidine 2021-08 Yes [id number] 2mg Take 1 [facility] 2 mg tablet 1-30 tablet by ity of 00:00: mouth [place] 00 every 8 Medical (eight) Branch hours as needed (muscle spasms). Diclofenac 2021-08 Yes [id number] Apply 4g [facility] Sodium 1-30 to ity of (VOLTAREN) 00:00: affected [place] % gel 00 area [facility] Branch traMADoL 50 2021-08 Yes [id number] 50mg Take 1 [facility] ers mg tablet 1-30 tablet by ity o f 00:00: mouth [place] 00 every 8 Medical (eight) Branch hours as needed for Pain (scale 7-10). Indication s: chronic pain FLUoxetine 2021-08 Yes [id number] 20mg Take 1 U nivers 20 mg 1-30 capsule by ity of capsule 00:00: mouth in [place] 00 the Medical morning. Branch traZODone 2021-08 Yes [id number] 50mg Take 1 [facility] vers 50 mg 1-30 tablet by ity of tablet 00:00: mouth at [place] 00 bedtime. Medical Branch tiZANidine 2021-08 Yes [id number] 2mg Take 1 [facility] 2 mg tablet 1-30 tablet by ity of 00:00: mouth [place] 00 every 8 Medical (eight) Branch hours as needed (muscle spasms). Diclofenac 2021-08 Yes [id number] Apply 4g [facility] Sodium 1-30 to ity of (VOLTAREN) 00:00: affected [place] 1 % gel 00 [facility] Medical Branch traMADoL 50 2021-08 Yes [id number] 50mg Take 1 [facility] ers mg tablet 1-30 tablet by ity o f 00:00: mouth [place] 00 every 8 Medical (eight) Branch hours as needed for Pain (scale 7-10). Indication s: chronic pain FLUoxetine 2021-08 Yes [id number] 20mg Take 1 U nivers 20 mg 1-30 capsule by ity of capsule 00:00: mouth in [place] 00 the Medical morning. Branch traZODone 2021-08 Yes [id number] 50mg Take 1 [facility] vers 50 mg 1-30 tablet by ity of tablet 00:00: mouth at [place] 00 bedtime. Medical Branch tiZANidine 2021-08 Yes [id number] 2mg Take 1 [facility] 2 mg tablet 1-30 tablet by ity of 00:00: mouth [place] 00 every 8 Medical (eight) Branch hours as needed (muscle spasms). Diclofenac 2021-08 Yes [id number] Apply 4g [facility] Sodium 1-30 to ity of (VOLTAREN) 00:00: affected [place] 1 % gel 00 [facility] Medical Branch traMADoL 50 2021-08 Yes [id number] 50mg Take 1 [facility] ers mg tablet 1-30 tablet by ity o f 00:00: mouth [place] 00 every 8 Medical (eight) Branch hours as needed for Pain (scale 7-10). Indication s: chronic pain FLUoxetine 2021-08 Yes [id number] 20mg Take 1 U nivers 20 mg 1-30 capsule by ity of capsule 00:00: mouth in [place] 00 the Medical morning. Branch traZODone 2021-08 Yes [id number] 50mg Take 1 [facility] vers 50 mg 1-30 tablet by ity of tablet 00:00: mouth at [place] 00 bedtime. Medical Branch tiZANidine 2021-08 Yes [id number] 2mg Take 1 [facility] 2 mg tablet 1-30 tablet by ity of 00:00: mouth [place] 00 every 8 Medical (eight) Branch hours as needed (muscle spasms). Diclofenac 2021-08 Yes [id number] Apply 4g [facility] Sodium 1-30 to ity of (VOLTAREN) 00:00: affected [place] 1 % gel 00 [facility] Medical Branch traMADoL 50 2021-08 Yes [id number] 50mg Take 1 [facility] ers mg tablet 1-30 tablet by ity o f 00:00: mouth [place] 00 every 8 Medical (eight) Branch hours as needed for Pain (scale 7-10). Indication s: chronic pain FLUoxetine 2021-08 Yes [id number] 20mg Take 1 U nivers 20 mg 1-30 capsule by ity of capsule 00:00: mouth in [place] 00 the Medical morning. Branch traZODone 2021-08 Yes [id number] 50mg Take 1 [facility] vers 50 mg 1-30 tablet by ity of tablet 00:00: mouth at [place] 00 bedtime. Medical Branch tiZANidine 2021-08 Yes [id number] 2mg Take 1 [facility] 2 mg tablet 1-30 tablet by ity of 00:00: mouth [place] 00 every 8 Medical (eight) Branch hours as needed (muscle spasms). Diclofenac 2021-08 Yes [id number] Apply 4g [facility] Sodium 1-30 to ity of (VOLTAREN) 00:00: affected [place] % gel 00 area D Medical Branch traMADoL 50 2021-08 Yes [id number] 50mg Take 1 [facility] ers mg tablet 1-30 tablet by ity o f 00:00: mouth [place] 00 every 8 Medical (eight) Branch hours as needed for Pain (scale 7-10). Indication s: chronic pain FLUoxetine 2021-08 Yes [id number] 20mg Take 1 U nivers 20 mg 1-30 capsule by ity of capsule 00:00: mouth in [place] 00 the Medical morning. Branch traZODone 2021-08 Yes [id number] 50mg Take 1 [facility] vers 50 mg 1-30 tablet by ity of tablet 00:00: mouth at [place] 00 bedtime. Medical Branch tiZANidine 2021-08 Yes [id number] 2mg Take 1 [facility] 2 mg tablet 1-30 tablet by ity of 00:00: mouth [place] 00 every 8 Medical (eight) Branch hours as needed (muscle spasms). Diclofenac 2021-08 Yes [id number] Apply 4g [facility] Sodium 1-30 to ity of (VOLTAREN) 00:00: affected [place] % gel 00 [facility] traMADoL 50 2021-08 Yes [id number] 50mg Take 1 [facility] ers mg tablet 1-30 tablet by ity o f 00:00: mouth [place] 00 every 8 Medical (eight) Branch hours as needed for Pain (scale 7-10). Indication s: chronic pain FLUoxetine 2021-08 Yes [id number] 20mg Take 1 U nivers 20 mg 1-30 capsule by ity of capsule 00:00: mouth in [place] 00 the Medical morning. Branch traZODone 2021-08 Yes [id number] 50mg Take 1 [facility] vers 50 mg 1-30 tablet by ity of tablet 00:00: mouth at [place] 00 bedtime. Medical Branch tiZANidine 2021-08 Yes [id number] 2mg Take 1 [facility] 2 mg tablet 1-30 tablet by ity of 00:00: mouth [place] 00 every 8 Medical (eight) Branch hours as needed (muscle spasms). Diclofenac 2021-08 Yes [id number] Apply 4g [facility] Sodium 1-30 to ity of (VOLTAREN) 00:00: affected [place] % gel 00 [facility] traMADoL 50 2021-08 Yes [id number] 50mg Take 1 [facility] ers mg tablet 1-30 tablet by ity o f 00:00: mouth [place] 00 every 8 Medical (eight) Branch hours as needed for Pain (scale 7-10). Indication s: chronic pain FLUoxetine 2021-08 Yes [id number] 20mg Take 1 U nivers 20 mg 1-30 capsule by ity of capsule 00:00: mouth in [place] 00 the Medical morning. Branch traZODone 2021-08 Yes [id number] 50mg Take 1 [facility] vers 50 mg 1-30 tablet by ity of tablet 00:00: mouth at [place] 00 bedtime. Medical Branch tiZANidine 2021-08 Yes [id number] 2mg Take 1 [facility] 2 mg tablet 1-30 tablet by ity of 00:00: mouth [place] 00 every 8 Medical (eight) Branch hours as needed (muscle spasms). Diclofenac 2021-08 Yes [id number] Apply 4g [facility] Sodium 1-30 to ity of (VOLTAREN) 00:00: affected [place] % gel 00 area [facility] Medical Branch traMADoL 50 2021-08 Yes [id number] 50mg Take 1 [facility] ers mg tablet 1-30 tablet by ity o f 00:00: mouth [place] 00 every 8 Medical (eight) Branch hours as needed for Pain (scale 7-10). Indication s: chronic pain FLUoxetine 2021-08 Yes [id number] 20mg Take 1 U nivers 20 mg 1-30 capsule by ity of capsule 00:00: mouth in [place] 00 the Medical morning. Branch traZODone 2021-08 Yes [id number] 50mg Take 1 [facility] vers 50 mg 1-30 tablet by ity of tablet 00:00: mouth at [place] 00 bedtime. Medical Branch tiZANidine 2021-08 Yes [id number] 2mg Take 1 [facility] 2 mg tablet 1-30 tablet by ity of 00:00: mouth [place] 00 every 8 Medical (eight) Branch hours as needed (muscle spasms). Diclofenac 2021-08 Yes [id number] Apply 4g [facility] Sodium 1-30 to ity of (VOLTAREN) 00:00: affected [place] % gel 00 area QID Medical Branch traMADoL 50 2021-08 Yes [id number] 50mg Take 1 [facility] ers mg tablet 1-30 tablet by ity o f 00:00: mouth [place] 00 every 8 Medical (eight) Branch hours as needed for Pain (scale 7-10). Indication s: chronic pain FLUoxetine 2021-08 Yes [id number] 20mg Take 1 U nivers 20 mg 1-30 capsule by ity of capsule 00:00: mouth in [place] 00 the Medical morning. Branch traZODone 2021-08 Yes [id number] 50mg Take 1 [facility] vers 50 mg 1-30 tablet by ity of tablet 00:00: mouth at [place] 00 bedtime. Medical Branch tiZANidine 2021-08 Yes [id number] 2mg Take 1 [facility] 2 mg tablet 1-30 tablet by ity of 00:00: mouth [place] 00 every 8 Medical (eight) Branch hours as needed (muscle spasms). Diclofenac 2021-08 Yes [id number] Apply 4g [facility] Sodium 1-30 to ity of (VOLTAREN) 00:00: affected [place] % gel 00 area [facility] Branch traMADoL 50 2021-08 Yes [id number] 50mg Take 1 [facility] ers mg tablet 1-30 tablet by ity o f 00:00: mouth [place] 00 every 8 Medical (eight) Branch hours as needed for Pain (scale 7-10). Indication s: chronic pain FLUoxetine 2021-08 Yes [id number] 20mg Take 1 U nivers 20 mg 1-30 capsule by ity of capsule 00:00: mouth in [place] 00 the Medical morning. Branch traZODone 2021-08 Yes [id number] 50mg Take 1 [facility] vers 50 mg 1-30 tablet by ity of tablet 00:00: mouth at [place] 00 bedtime. Medical Branch Diclofenac 2021-08 Yes [id number] Apply 4g [facility] Sodium 1-30 to ity of (VOLTAREN) 00:00: affected [place] % gel 00 area [facility] Medical Branch traMADoL 50 2021-08 Yes [id number] 50mg Take 1 [facility] ers mg tablet 1-30 tablet by ity o f 00:00: mouth [place] 00 every 8 Medical (eight) Branch hours as needed for Pain (scale 7-10). Indication s: chronic pain Diclofenac 2021-08 Yes [id number] Apply 4g [facility] Sodium 1-30 to ity of (VOLTAREN) 00:00: affected [place] % gel 00 area [facility] Branch traMADoL 50 2021-08 Yes [id number] 50mg Take 1 [facility] ers mg tablet 1-30 tablet by ity o f 00:00: mouth [place] 00 every 8 Medical (eight) Branch hours as needed for Pain (scale 7-10). Indication s: chronic pain Diclofenac 2021-08 Yes [id number] Apply 4g [facility] Sodium 1-30 to ity of (VOLTAREN) 00:00: affected [place] % gel 00 area [facility] traMADoL 50 2021-08 Yes [id number] 50mg Take 1 [facility] ers mg tablet 1-30 tablet by ity o f 00:00: mouth [place] 00 every 8 Medical (eight) Branch hours as needed for Pain (scale 7-10). Indication s: chronic pain Diclofenac 2021-08 Yes [id number] Apply 4g [facility] Sodium 1-30 to ity of (VOLTAREN) 00:00: affected [place] % gel 00 area [facility] traMADoL 50 2021-08 Yes [id number] 50mg Take 1 [facility] ers mg tablet 1-30 tablet by ity o f 00:00: mouth [place] 00 every 8 Medical (eight) Branch hours as needed for Pain (scale 7-10). Indication s: chronic pain Diclofenac 2021-08 Yes [id number] Apply 4g [facility] Sodium 1-30 to ity of (VOLTAREN) 00:00: affected [place] % gel 00 area [facility] traMADoL 50 2021-08 Yes [id number] 50mg Take 1 [facility] ers mg tablet 1-30 tablet by ity o f 00:00: mouth [place] 00 every 8 Medical (eight) Branch hours as needed for Pain (scale 7-10). Indication s: chronic pain Diclofenac 2021-08 Yes [id number] Apply 4g [facility] Sodium 1-30 to ity of (VOLTAREN) 00:00: affected [place] % gel 00 [facility] traMADoL 50 2021-08 Yes [id number] 50mg Take 1 [facility] ers mg tablet 1-30 tablet by ity o f 00:00: mouth [place] 00 every 8 Medical (eight) Branch hours as needed for Pain (scale 7-10). Indication s: chronic pain Diclofenac 2021-08 Yes [id number] Apply 4g [facility] Sodium 1-30 to ity of (VOLTAREN) 00:00: affected [place] % gel 00 [facility] traMADoL 50 2021-08 Yes [id number] 50mg Take 1 [facility] ers mg tablet 1-30 tablet by ity o f 00:00: mouth [place] 00 every 8 Medical (eight) Branch hours as needed for Pain (scale 7-10). Indication s: chronic pain Diclofenac 2021-08 Yes [id number] Apply 4g [facility] Sodium 1-30 to ity of (VOLTAREN) 00:00: affected [place] % gel 00 area [facility] traMADoL 50 2021-08 Yes [id number] 50mg Take 1 [facility] ers mg tablet 1-30 tablet by ity o f 00:00: mouth [place] 00 every 8 Medical (eight) Branch hours as needed for Pain (scale 7-10). Indication s: chronic pain Diclofenac 2021-08 Yes [id number] Apply 4g [facility] Sodium 1-30 to ity of (VOLTAREN) 00:00: affected [place] % gel 00 area [facility] traMADoL 50 2021-08 Yes [id number] 50mg Take 1 [facility] ers mg tablet 1-30 tablet by ity o f 00:00: mouth [place] 00 every 8 Medical (eight) Branch hours as needed for Pain (scale 7-10). Indication s: chronic pain Diclofenac 2021-08 Yes [id number] Apply 4g [facility] Sodium 1-30 to ity of (VOLTAREN) 00:00: affected [place] % gel 00 area [facility] traMADoL 50 2021-08 Yes [id number] 50mg Take 1 [facility] ers mg tablet 1-30 tablet by ity o f 00:00: mouth [place] 00 every 8 Medical (eight) Branch hours as needed for Pain (scale 7-10). Indication s: chronic pain Diclofenac 2021-08 Yes [id number] Apply 4g [facility] Sodium 1-30 to ity of (VOLTAREN) 00:00: affected [place] % gel 00 [facility] traMADoL 50 2021-08 Yes [id number] 50mg Take 1 [facility] ers mg tablet 1-30 tablet by ity o f 00:00: mouth [place] 00 every 8 Medical (eight) Branch hours as needed for Pain (scale 7-10). Indication s: chronic pain Diclofenac 2021-08 Yes [id number] Apply 4g [facility] Sodium 1-30 to ity of (VOLTAREN) 00:00: affected [place] % gel 00 [facility] traMADoL 50 2021-08 Yes [id number] 50mg Take 1 [facility] ers mg tablet 1-30 tablet by ity o f 00:00: mouth [place] 00 every 8 Medical (eight) Branch hours as needed for Pain (scale 7-10). Indication s: chronic pain Diclofenac 2021-08 Yes [id number] Apply 4g [facility] Sodium 1-30 to ity of (VOLTAREN) 00:00: affected [place] % gel 00 area [facility] traMADoL 50 2021-08 Yes [id number] 50mg Take 1 [facility] ers mg tablet 1-30 tablet by ity o f 00:00: mouth [place] 00 every 8 Medical (eight) Branch hours as needed for Pain (scale 7-10). Indication s: chronic pain Diclofenac 2021-08 Yes [id number] Apply 4g [facility] Sodium 1-30 to ity of (VOLTAREN) 00:00: affected [place] % gel 00 area [facility] traMADoL 50 2021-08 Yes [id number] 50mg Take 1 [facility] ers mg tablet 1-30 tablet by ity o f 00:00: mouth [place] 00 every 8 Medical (eight) Branch hours as needed for Pain (scale 7-10). Indication s: chronic pain Diclofenac 2021-08 Yes [id number] Apply 4g [facility] Sodium 1-30 to ity of (VOLTAREN) 00:00: affected [place] % gel 00 area [facility] traMADoL 50 2021-08 Yes [id number] 50mg Take 1 [facility] ers mg tablet 1-30 tablet by ity o f 00:00: mouth [place] 00 every 8 Medical (eight) Branch hours as needed for Pain (scale 7-10). Indication s: chronic pain Diclofenac 2021-08 Yes [id number] Apply 4g [facility] Sodium 1-30 to ity of (VOLTAREN) 00:00: affected [place] % gel 00 [facility] traMADoL 50 2021-08 Yes [id number] 50mg Take 1 [facility] ers mg tablet 1-30 tablet by ity o f 00:00: mouth [place] 00 every 8 Medical (eight) Branch hours as needed for Pain (scale 7-10). Indication s: chronic pain Diclofenac 2021-08 Yes [id number] Apply 4g [facility] Sodium 1-30 to ity of (VOLTAREN) 00:00: affected [place] % gel 00 [facility] traMADoL 50 2021-08 Yes [id number] 50mg Take 1 [facility] ers mg tablet 1-30 tablet by ity o f 00:00: mouth [place] 00 every 8 Medical (eight) Branch hours as needed for Pain (scale 7-10). Indication s: chronic pain Diclofenac 2021-08 Yes [id number] Apply 4g [facility] Sodium 1-30 to ity of (VOLTAREN) 00:00: affected [place] % gel 00 area [facility] traMADoL 50 2021-08 Yes [id number] 50mg Take 1 [facility] ers mg tablet 1-30 tablet by ity o f 00:00: mouth [place] 00 every 8 Medical (eight) Branch hours as needed for Pain (scale 7-10). Indication s: chronic pain Diclofenac 2021-08 Yes [id number] Apply 4g [facility] Sodium 1-30 to ity of (VOLTAREN) 00:00: affected [place] % gel 00 area [facility] traMADoL 50 2021-08 Yes [id number] 50mg Take 1 [facility] ers mg tablet 1-30 tablet by ity o f 00:00: mouth [place] 00 every 8 Medical (eight) Branch hours as needed for Pain (scale 7-10). Indication s: chronic pain Diclofenac 2021-08 Yes [id number] Apply 4g [facility] Sodium 1-30 to ity of (VOLTAREN) 00:00: affected [place] 1 % gel 00 area [facility] traMADoL 50 2021-08 Yes [id number] 50mg Take 1 Univ ers mg tablet 1-30 tablet by ity o f 00:00: mouth [place] 00 every 8 Medical (eight) Branch hours as needed for Pain (scale 7-10). Indication s: chronic pain Diclofenac 2021-08 Yes [id number] Apply 4g [facility] Sodium 1-30 to ity of (VOLTAREN) 00:00: affected [place] 1 % gel 00 [facility] traMADoL 50 2021-08 Yes [id number] 50mg Take 1 Univ ers mg tablet 1-30 tablet by ity o f 00:00: mouth [place] 00 every 8 Medical (eight) Branch hours as needed for Pain (scale 7-10). Indication s: chronic pain Diclofenac 2021-08 Yes [id number] Apply 4g [facility] Sodium 1-30 to ity of (VOLTAREN) 00:00: affected [place] 1 % gel 00 [facility] traMADoL 50 2021-08 Yes [id number] 50mg Take 1 Univ ers mg tablet 1-30 tablet by ity o f 00:00: mouth [place] 00 every 8 Medical (eight) Branch hours as needed for Pain (scale 7-10). Indication s: chronic pain Diclofenac 2021-08 Yes [id number] Apply 4g [facility] Sodium 1-30 to ity of (VOLTAREN) 00:00: affected [place] 1 % gel 00 area [facility] traMADoL 50 2021-08 Yes [id number] 50mg Take 1 Univ ers mg tablet 1-30 tablet by ity o f 00:00: mouth [place] 00 every 8 Medical (eight) Branch hours as needed for Pain (scale 7-10). Indication s: chronic pain Diclofenac 2021-08 Yes [id number] Apply 4g [facility] Sodium 1-30 to ity of (VOLTAREN) 00:00: affected [place] % gel 00 area [facility] traMADoL 50 2021-08 Yes [id number] 50mg Take 1 Univ ers mg tablet 1-30 tablet by ity o f 00:00: mouth [place] 00 every 8 Medical (eight) Branch hours as needed for Pain (scale 7-10). Indication s: chronic pain Diclofenac 2021-08 Yes [id number] Apply 4g [facility] Sodium 1-30 to ity of (VOLTAREN) 00:00: affected [place] 1 % gel 00 area [facility] traMADoL 50 2021-08 Yes [id number] 50mg Take 1 Univ ers mg tablet 1-30 tablet by ity o f 00:00: mouth [place] 00 every 8 Medical (eight) Branch hours as needed for Pain (scale 7-10). Indication s: chronic pain Diclofenac 2021-08 Yes [id number] Apply 4g [facility] Sodium 1-30 to ity of (VOLTAREN) 00:00: affected [place] % gel 00 [facility] traMADoL 50 2021-08 Yes [id number] 50mg Take 1 Univ ers mg tablet 1-30 tablet by ity o f 00:00: mouth [place] 00 every 8 Medical (eight) Branch hours as needed for Pain (scale 7-10). Indication s: chronic pain Diclofenac 2021-08 Yes [id number] Apply 4g [facility] Sodium 1-30 to ity of (VOLTAREN) 00:00: affected [place] % gel 00 [facility] traMADoL 50 2021-08 Yes [id number] 50mg Take 1 Univ ers mg tablet 1-30 tablet by ity o f 00:00: mouth [place] 00 every 8 Medical (eight) Branch hours as needed for Pain (scale 7-10). Indication s: chronic pain Diclofenac 2021-08 Yes [id number] Apply 4g [facility] Sodium 1-30 to ity of (VOLTAREN) 00:00: affected [place] % gel 00 area [facility] traMADoL 50 2021-08 Yes [id number] 50mg Take 1 [facility] ers mg tablet 1-30 tablet by ity o f 00:00: mouth [place] 00 every 8 Medical (eight) Branch hours as needed for Pain (scale 7-10). Indication s: chronic pain Diclofenac 2021-08 Yes [id number] Apply 4g [facility] Sodium 1-30 to ity of (VOLTAREN) 00:00: affected [place] % gel 00 area [facility] traMADoL 50 2021-08 Yes [id number] 50mg Take 1 Univ ers mg tablet 1-30 tablet by ity o f 00:00: mouth [place] 00 every 8 Medical (eight) Branch hours as needed for Pain (scale 7-10). Indication s: chronic pain Diclofenac 2021-08 Yes [id number] Apply 4g [facility] Sodium 1-30 to ity of (VOLTAREN) 00:00: affected [place] 1 % gel 00 area [facility] traMADoL 50 2021-08 Yes [id number] 50mg Take 1 Univ ers mg tablet 1-30 tablet by ity o f 00:00: mouth [place] 00 every 8 Medical (eight) Branch hours as needed for Pain (scale 7-10). Indication s: chronic pain Diclofenac 2021-08 Yes [id number] Apply 4g [facility] Sodium 1-30 to ity of (VOLTAREN) 00:00: affected [place] % gel 00 [facility] traMADoL 50 2021-08 Yes [id number] 50mg Take 1 Univ ers mg tablet 1-30 tablet by ity o f 00:00: mouth [place] 00 every 8 Medical (eight) Branch hours as needed for Pain (scale 7-10). Indication s: chronic pain Diclofenac 2021-08 Yes [id number] Apply 4g [facility] Sodium 1-30 to ity of (VOLTAREN) 00:00: affected [place] % gel 00 [facility] traMADoL 50 2021-08 Yes [id number] 50mg Take 1 Univ ers mg tablet 1-30 tablet by ity o f 00:00: mouth [place] 00 every 8 Medical (eight) Branch hours as needed for Pain (scale 7-10). Indication s: chronic pain Diclofenac 2021-08 Yes [id number] Apply 4g [facility] Sodium 1-30 to ity of (VOLTAREN) 00:00: affected [place] % gel 00 [facility] traMADoL 50 2021-08 Yes [id number] 50mg Take 1 Univ ers mg tablet 1-30 tablet by ity o f 00:00: mouth [place] 00 every 8 Medical (eight) Branch hours as needed for Pain (scale 7-10). Indication s: chronic pain Diclofenac 2021-08 Yes [id number] Apply 4g [facility] Sodium 1-30 to ity of (VOLTAREN) 00:00: affected [place] 1 % gel 00 [facility] traMADoL 50 2021-08 Yes [id number] 50mg Take 1 Univ ers mg tablet 1-30 tablet by ity o f 00:00: mouth [place] 00 every 8 Medical (eight) Branch hours as needed for Pain (scale 7-10). Indication s: chronic pain traMADoL 50 2021-08 Yes [id number] 50mg Take 1 Univ ers mg tablet 1-30 tablet by ity o f 00:00: mouth [place] 00 every 8 Medical (eight) Branch hours as needed for Pain (scale 7-10). Indication s: chronic pain Diclofenac 2021-08- No [id number] Apply 4g [facility] Sodium 09-13 to ity of (VOLTAREN) 00:00: 00:00 affected [place] 1 % gel 00 :00 [facility] Diclofenac 2021-08- No [id number] Apply 4g [facility] Sodium 09-13 to ity of (VOLTAREN) 00:00: 00:00 affected [place] 1 % gel 00 :00 [facility] traMADoL 50 2021-08- No [id number] 50mg Take 1 Uni vers mg tablet 09-13 tablet by ity of 00:00: 00:00 mouth [place] 00 :00 every 8 Medical (eight) Branch hours as needed for Pain (scale 7-10). Indication s: chronic pain Diclofenac 2021-08- No [id number] Apply 4g [facility] Sodium 09-13 to ity of (VOLTAREN) 00:00: 00:00 affected [place] 1 % gel 00 :00 [facility] traMADoL 50 2021-08- No [id number] 50mg Take 1 [facility] vers mg tablet 09-13 tablet by ity of 00:00: 00:00 mouth [place] 00 :00 every 8 Medical (eight) Branch hours as needed for Pain (scale 7-10). Indication s: chronic pain Diclofenac 2021-08- No [id number] Apply 4g [facility] Sodium 09-13 to ity of (VOLTAREN) 00:00: 00:00 affected [place] 1 % gel 00 :00 [facility] traMADoL 50 2021-08- No [id number] 50mg Take 1 [facility] vers mg tablet 09-13 tablet by ity of 00:00: 00:00 mouth [place] 00 :00 every 8 Medical (eight) Branch hours as needed for Pain (scale 7-10). Indication s: chronic pain tiZANidine 2021-08- No [id number] 2mg Take 1 [facility] 2 mg tablet 09-13- tablet by it y of 00:00: 00:00 mouth [place] 00 :00 every 8 Medical (eight) Branch hours as needed (muscle spasms). FLUoxetine 2021-08- No [id number] 20mg Take 1 [facility] 20 mg 09-13- capsule by ity of capsule 00:00: 00:00 mouth in [place] 00 :00 the Medical morning. Branch traZODone 2021-08- No [id number] 50mg Take 1 Un luis f 50 mg 09-13-06 tablet by ity of tablet 00:00: 00:00 mouth at [place] 00 :00 bedtime. Medical Branch tiZANidine 2021-08- No [id number] 2mg Take 1 [facility] 2 mg tablet 09-13-06 tablet by it y of 00:00: 00:00 mouth [place] 00 :00 every 8 Medical (eight) Branch hours as needed (muscle spasms). FLUoxetine 2021-08- No [id number] 20mg Take 1 [facility] 20 mg 30 -06 capsule by ity of capsule 00:00: 00:00 mouth in [place] 00 :00 the Medical morning. Branch traZODone 2021-08- No [id number] 50mg Take 1 Un luis f 50 mg 1-30 04-06 tablet by ity of tablet 00:00: 00:00 mouth at [place] 00 :00 bedtime. Medical Branch tiZANidine 2021-08- No [id number] 2mg Take 1 [facility] 2 mg tablet 09-13-06 tablet by it y of 00:00: 00:00 mouth [place] 00 :00 every 8 Medical (eight) Branch hours as needed (muscle spasms). FLUoxetine 2021-08- No [id number] 20mg Take 1 [facility] 20 mg 30 -06 capsule by ity of capsule 00:00: 00:00 mouth in [place] 00 :00 the Medical morning. Branch traZODone 2021-08- No [id number] 50mg Take 1 Un luis f 50 mg 09-13-06 tablet by ity of tablet 00:00: 00:00 mouth at [place] 00 :00 bedtime. Medical Branch tiZANidine 2021-08- No [id number] 2mg Take 1 [facility] 2 mg tablet 09-13- tablet by it y of 00:00: 00:00 mouth [place] 00 :00 every 8 Medical (eight) Branch hours as needed (muscle spasms). FLUoxetine 2021-08- No [id number] 20mg Take 1 [facility] 20 mg 09-13-06 capsule by ity of capsule 00:00: 00:00 mouth in [place] 00 :00 the Medical morning. Branch traZODone 2021-08- No [id number] 50mg Take 1 Un luis f 50 mg 09-13- tablet by ity of tablet 00:00: 00:00 mouth at [place] 00 :00 bedtime. Medical Branch Lidocaine 5 2021-08- No [id number] Apply to [facility] % cream 09-13 12-12 area(s) 2 ity of 00:00: 00:00 (two) [place] 00 :00 times Medical daily as Branch needed for Pain (scale 4-6). Apply 5g to affected areas BID PRN hydrALAZINE Yes [id number] 50mg Take 1 [facility] 50 mg 7-26 tablet by ity of tablet 00:00: mouth in [place] 00 the Medical morning Branch and 1 tablet at noon and 1 tablet in the evening. hydrALAZINE Yes [id number] 50mg Take 1 [facility] 50 mg 7-26 tablet by ity of tablet 00:00: mouth in [place] 00 the Medical morning Branch and 1 tablet at noon and 1 tablet in the evening. hydrALAZINE 2021-0 Yes [id number] 50mg Take 1 [facility] 50 mg 7-26 tablet by ity of tablet 00:00: mouth in [place] 00 the Medical morning Branch and 1 tablet at noon and 1 tablet in the evening. hydrALAZINE 2021-0 Yes [id number] 50mg Take 1 [facility] 50 mg 7-26 tablet by ity of tablet 00:00: mouth in [place] 00 the Medical morning Branch and 1 tablet at noon and 1 tablet in the evening. hydrALAZINE 2021-0 Yes [id number] 50mg Take 1 [facility] 50 mg 7-26 tablet by ity of tablet 00:00: mouth in [place] [address] the [facility] morning [place] and 1 tablet at noon and 1 tablet in the evening. hydrALAZINE 2021-0 Yes [id number] 50mg Take 1 [facility] 50 mg 7-26 tablet by ity of tablet 00:00: mouth in [place] [address] the [facility] morning [place] and 1 tablet at noon and 1 tablet in the evening. hydrALAZINE 2021-0 Yes [id number] 50mg Take 1 [facility] 50 mg 7-26 tablet by ity of tablet 00:00: mouth in [place] [address] the [facility] morning [place] and 1 tablet at noon and 1 tablet in the evening. hydrALAZINE 2021-0 2021- No [id number] 50mg Take 1 [facility] 50 mg 7-26 12-21 tablet by ity of tablet 00:00: 00:00 mouth in [place] 00 :00 the [facility] and 1 tablet at noon and 1 tablet in the evening. hydrALAZINE 2021-0 2021- No [id number] 50mg Take 1 [facility] 50 mg 7-26 12-21 tablet by ity of tablet 00:00: 00:00 mouth in [place] 00 :00 the [facility] morning Branch and 1 tablet at noon and 1 tablet in the evening. hydrALAZINE 2021-0 2021- No [id number] 50mg Take 1 [facility] 50 mg 7-26 12-21 tablet by ity of tablet 00:00: 00:00 mouth in [place] 00 :00 the [facility] morning Branch and 1 tablet at noon and 1 tablet in the evening. hydrALAZINE 0 2021- No [id number] 50mg Take 1 [facility] 50 mg 7-26 12-21 tablet by ity of tablet 00:00: 00:00 mouth in [place] 00 :00 the Medical morning Branch and 1 tablet at noon and 1 tablet in the evening. hydrALAZINE 2021- No [id number] 50mg Take 1 [facility] 50 mg 7-26 12-21 tablet by ity of tablet 00:00: 00:00 mouth in [place] 00 :00 the Medical morning Branch and 1 tablet at noon and 1 tablet in the evening. ipratropium 2021- No 2{puff} Inhale 2 Univers (ATROVENT 7-25 07-25 Puffs 4 ity of HFA) 17 15:47: 00:00 (four) [place] mcg/actuati 00 :00 times Medical on inhaler daily. Branch atorvastati Yes [id number] 40mg Take 1 [facility] n 40 mg 7-25 tablet by ity of tablet 00:00: mouth at [place] 00 bedtime. Medical Branch lipase-prot 0 Yes [id number] 1{capsu Take 1 [facility] ease-amylas 7-25 le} capsule by it y of e 00:00: mouth in [place] 12,000-38,0 00 the Medical 00 -60,000 morning Branch unit and 1 capsule capsule at noon and 1 capsule in the evening. Take with meals. terazosin 5 0 Yes [id number] 5mg Take 1 [facility] mg capsule 7-25 capsule by ity of 00:00: mouth [place] 00 every Medical evening. Branch triamterene 0 Yes [id number] 1{tbl} Take 1 [facility] -hydrochlor 7-25 tablet by ity of othiazid 00:00: mouth in [place] 37.5-25 mg 00 the Medical tablet morning. Branch amLODIPine- 0 Yes [id number] 1{capsu Take 1 [facility] benazepriL 7-25 le} capsule by ity of 10-40 mg 00:00: mouth in [place] per capsule 00 the Medical morning. Branch aspirin 325 0 Yes [id number] 325mg Take 1 [facility] mg tablet 7-25 tablet by ity o f 00:00: mouth [place] 00 daily with Medical breakfast. Branch carvediloL Yes [id number] 25mg Take 1 [facility] 25 mg 7-25 tablet by ity of tablet 00:00: mouth in [place] 00 the Medical morning Branch and 1 tablet in the evening. Take with meals. TAKE ONE (1) TABLET(S) BY MOUTH TWICE A DAY WITH FOOD. nicotine 14 Yes [id number] 1{patch Apply 1 [facility] mg/24 hr 7-25 } Patch to ity of patch 00:00: area(s) [place] 00 every 24 Medical ([facility]) hours. Apply 21mg patch daily x 6 weeks; then apply 14mf patch daily x 2 weeks; then apply 7mg patch daily x 2 weeks. Stop smoking on initiation of therapy nicotine 21 Yes [id number] 1{patch Apply 1 [facility] mg/24 hr 7-25 } Patch to ity of patch 00:00: area(s) in [place] 00 the Medical morning. Branch Apply 21mg patch daily x 6 weeks; then apply 14mg patch daily x 2 weeks; then apply 7mg patch daily x 2 weeks. Stop smoking on initiation of therapy nicotine 7 Yes [id number] 1{patch Apply 1 [facility] mg/24 hr 7-25 } Patch to ity of patch 00:00: area(s) [place] 00 every 24 Medical ([facility]) hours. Apply 21mg patch daily x 6 weeks; then apply 14mg patch daily x 2 weeks; then apply 7mg patch daily x 2 weeks. Stop smoking on initiation of therapy glipiZIDE Yes [id number] TAKE ONE [facility] 10 mg 7-25 (1) ity of tablet 00:00: TABLET(S) [place] 00 BY MOUTH Medical ONCE A DAY Branch BEFORE MEALS. atorvastati Yes [id number] 40mg Take 1 [facility] n 40 mg 7-25 tablet by ity of tablet 00:00: mouth at [place] 00 bedtime. Medical Branch lipase-prot Yes [id number] 1{capsu Take 1 [facility] ease-amylas 7-25 le} capsule by it y of e 00:00: mouth in [place] 12,000-38,0 00 the [facility] 00 -60,000 morning Branch unit and 1 capsule capsule at noon and 1 capsule in the evening. Take with meals. terazosin 5 Yes [id number] 5mg Take 1 [facility] mg capsule 7-25 capsule by ity of 00:00: mouth [place] 00 every Medical evening. Branch triamterene Yes [id number] 1{tbl} Take 1 [facility] -hydrochlor 7-25 tablet by ity of othiazid 00:00: mouth in [place] 37.5-25 mg 00 the Medical tablet morning. Branch amLODIPine- Yes [id number] 1{capsu Take 1 [facility] benazepriL 7-25 le} capsule by ity of 10-40 mg 00:00: mouth in [place] per capsule 00 the Medical morning. Branch aspirin 325 Yes [id number] 325mg Take 1 [facility] mg tablet 7-25 tablet by ity o f 00:00: mouth [place] 00 daily with Medical breakfast. Branch carvediloL Yes [id number] 25mg Take 1 [facility] 25 mg 7-25 tablet by ity of tablet 00:00: mouth in [place] 00 the Medical morning Branch and 1 tablet in the evening. Take with meals. TAKE ONE (1) TABLET(S) BY MOUTH TWICE A DAY WITH FOOD. nicotine 14 Yes [id number] 1{patch Apply 1 [facility] mg/24 hr 7-25 } Patch to ity of patch 00:00: area(s) [place] 00 every 24 Medical ([facility]) hours. Apply 21mg patch daily x 6 weeks; then apply 14mf patch daily x 2 weeks; then apply 7mg patch daily x 2 weeks. Stop smoking on initiation of therapy nicotine 21 Yes [id number] 1{patch Apply 1 [facility] mg/24 hr 7-25 } Patch to ity of patch 00:00: area(s) in [place] 00 the Medical morning. Branch Apply 21mg patch daily x 6 weeks; then apply 14mg patch daily x 2 weeks; then apply 7mg patch daily x 2 weeks. Stop smoking on initiation of therapy nicotine 7 Yes [id number] 1{patch Apply 1 [facility] mg/24 hr 7-25 } Patch to ity of patch 00:00: area(s) [place] 00 every 24 Medical ([facility]) hours. Apply 21mg patch daily x 6 weeks; then apply 14mg patch daily x 2 weeks; then apply 7mg patch daily x 2 weeks. Stop smoking on initiation of therapy glipiZIDE Yes [id number] TAKE ONE [facility] 10 mg 7-25 (1) ity of tablet 00:00: TABLET(S) [place] 00 BY MOUTH Medical ONCE A DAY Branch BEFORE MEALS. atorvastati Yes [id number] 40mg Take 1 [facility] n 40 mg 7-25 tablet by ity of tablet 00:00: mouth at [place] 00 bedtime. Medical Branch lipase-prot Yes [id number] 1{capsu Take 1 [facility] ease-amylas 7-25 le} capsule by it y of e 00:00: mouth in [place] 12,000-38,0 00 the Medical 00 -60,000 morning Branch unit and 1 capsule capsule at noon and 1 capsule in the evening. Take with meals. terazosin 5 Yes [id number] 5mg Take 1 [facility] mg capsule 7-25 capsule by ity of 00:00: mouth [place] 00 every Medical evening. Branch triamterene Yes [id number] 1{tbl} Take 1 [facility] -hydrochlor 7-25 tablet by ity of othiazid 00:00: mouth in [place] 37.5-25 mg 00 the Medical tablet morning. Branch amLODIPine- Yes [id number] 1{capsu Take 1 [facility] benazepriL 7-25 le} capsule by ity of 10-40 mg 00:00: mouth in [place] per capsule 00 the Medical morning. Branch aspirin 325 Yes [id number] 325mg Take 1 [facility] mg tablet 7-25 tablet by ity o f 00:00: mouth [place] 00 daily with Medical breakfast. Branch carvediloL Yes [id number] 25mg Take 1 [facility] 25 mg 7-25 tablet by ity of tablet 00:00: mouth in [place] 00 the Medical morning Branch and 1 tablet in the evening. Take with meals. TAKE ONE (1) TABLET(S) BY MOUTH TWICE A DAY WITH FOOD. nicotine 14 Yes [id number] 1{patch Apply 1 [facility] mg/24 hr 7-25 } Patch to ity of patch 00:00: area(s) [place] 00 every 24 Medical ([facility] ur) hours. Apply 21mg patch daily x 6 weeks; then apply 14mf patch daily x 2 weeks; then apply 7mg patch daily x 2 weeks. Stop smoking on initiation of therapy nicotine 21 Yes [id number] 1{patch Apply 1 [facility] mg/24 hr 7-25 } Patch to ity of patch 00:00: area(s) in [place] 00 the Medical morning. Branch Apply 21mg patch daily x 6 weeks; then apply 14mg patch daily x 2 weeks; then apply 7mg patch daily x 2 weeks. Stop smoking on initiation of therapy nicotine 7 Yes [id number] 1{patch Apply 1 [facility] mg/24 hr 7-25 } Patch to ity of patch 00:00: area(s) [place] 00 every 24 Medical ([facility] Branch ur) hours. Apply 21mg patch daily x 6 weeks; then apply 14mg patch daily x 2 weeks; then apply 7mg patch daily x 2 weeks. Stop smoking on initiation of therapy glipiZIDE Yes [id number] TAKE ONE [facility] 10 mg 7-25 (1) ity of tablet 00:00: TABLET(S) [place] 00 BY MOUTH Medical ONCE A DAY Branch BEFORE MEALS. atorvastati Yes [id number] 40mg Take 1 [facility] n 40 mg 7-25 tablet by ity of tablet 00:00: mouth at [place] 00 bedtime. Medical Branch lipase-prot Yes [id number] 1{capsu Take 1 [facility] ease-amylas 7-25 le} capsule by it y of e 00:00: mouth in [place] 12,000-38,0 00 the Medical 00 -60,000 morning Branch unit and 1 capsule capsule at noon and 1 capsule in the evening. Take with meals. terazosin 5 Yes [id number] 5mg Take 1 [facility] mg capsule 7-25 capsule by ity of 00:00: mouth [place] 00 every Medical evening. Branch triamterene Yes [id number] 1{tbl} Take 1 [facility] -hydrochlor 7-25 tablet by ity of othiazid 00:00: mouth in [place] 37.5-25 mg 00 the Medical tablet morning. Branch amLODIPine- Yes [id number] 1{capsu Take 1 [facility] benazepriL 7-25 le} capsule by ity of 10-40 mg 00:00: mouth in [place] per capsule 00 the Medical morning. Branch aspirin 325 Yes [id number] 325mg Take 1 [facility] mg tablet 7-25 tablet by ity o f 00:00: mouth [place] 00 daily with Medical breakfast. Branch carvediloL Yes [id number] 25mg Take 1 [facility] 25 mg 7-25 tablet by ity of tablet 00:00: mouth in [place] 00 the Medical morning Branch and 1 tablet in the evening. Take with meals. TAKE ONE (1) TABLET(S) BY MOUTH TWICE A DAY WITH FOOD. nicotine 14 Yes [id number] 1{patch Apply 1 [facility] mg/24 hr 7-25 } Patch to ity of patch 00:00: area(s) [place] 00 every 24 Medical (tw[facility]- [facility] ur) hours. Apply 21mg patch daily x 6 weeks; then apply 14mf patch daily x 2 weeks; then apply 7mg patch daily x 2 weeks. Stop smoking on initiation of therapy nicotine 21 Yes [id number] 1{patch Apply 1 [facility] mg/24 hr 7-25 } Patch to ity of patch 00:00: area(s) in [place] 00 the Medical morning. Branch Apply 21mg patch daily x 6 weeks; then apply 14mg patch daily x 2 weeks; then apply 7mg patch daily x 2 weeks. Stop smoking on initiation of therapy nicotine 7 Yes [id number] 1{patch Apply 1 [facility] mg/24 hr 7-25 } Patch to ity of patch 00:00: area(s) [place] 00 every 24 Medical ([facility]) hours. Apply 21mg patch daily x 6 weeks; then apply 14mg patch daily x 2 weeks; then apply 7mg patch daily x 2 weeks. Stop smoking on initiation of therapy glipiZIDE Yes [id number] TAKE ONE [facility] 10 mg 7-25 (1) ity of tablet 00:00: TABLET(S) [place] 00 BY MOUTH Medical ONCE A DAY Branch BEFORE MEALS. atorvastati Yes [id number] 40mg Take 1 [facility] n 40 mg 7-25 tablet by ity of tablet 00:00: mouth at [place] 00 bedtime. Medical Branch lipase-prot Yes [id number] 1{capsu Take 1 [facility] ease-amylas 7-25 le} capsule by it y of e 00:00: mouth in [place] 12,000-38,0 00 the Medical 00 -60,000 morning Branch unit and 1 capsule capsule at noon and 1 capsule in the evening. Take with meals. terazosin 5 Yes [id number] 5mg Take 1 [facility] mg capsule 7-25 capsule by ity of 00:00: mouth [place] 00 every Medical evening. Branch triamterene Yes [id number] 1{tbl} Take 1 [facility] -hydrochlor 7-25 tablet by ity of othiazid 00:00: mouth in [place] 37.5-25 mg 00 the Medical tablet morning. Branch amLODIPine- Yes [id number] 1{capsu Take 1 [facility] benazepriL 7-25 le} capsule by ity of 10-40 mg 00:00: mouth in [place] per capsule 00 the Medical morning. Branch aspirin 325 Yes [id number] 325mg Take 1 [facility] mg tablet 7-25 tablet by ity o f 00:00: mouth [place] 00 daily with Medical breakfast. Branch carvediloL Yes [id number] 25mg Take 1 [facility] 25 mg 7-25 tablet by ity of tablet 00:00: mouth in [place] 00 the Medical morning Branch and 1 tablet in the evening. Take with meals. TAKE ONE (1) TABLET(S) BY MOUTH TWICE A DAY WITH FOOD. nicotine Yes [id number] 1{patch Apply 1 [facility] mg/24 hr 7-25 } Patch to ity of patch 00:00: area(s) [place] 00 every 24 Medical ([facility] Branch ur) hours. Apply 21mg patch daily x 6 weeks; then apply 14mf patch daily x 2 weeks; then apply 7mg patch daily x 2 weeks. Stop smoking on initiation of therapy nicotine 21 Yes [id number] 1{patch Apply 1 [facility] mg/24 hr 7-25 } Patch to ity of patch 00:00: area(s) in [place] 00 the Medical morning. Branch Apply 21mg patch daily x 6 weeks; then apply 14mg patch daily x 2 weeks; then apply 7mg patch daily x 2 weeks. Stop smoking on initiation of therapy nicotine 7 Yes [id number] 1{patch Apply 1 [facility] mg/24 hr 7-25 } Patch to ity of patch 00:00: area(s) [place] 00 every 24 Medical ([facility] Branch ur) hours. Apply 21mg patch daily x 6 weeks; then apply 14mg patch daily x 2 weeks; then apply 7mg patch daily x 2 weeks. Stop smoking on initiation of therapy glipiZIDE Yes [id number] TAKE ONE [facility] 10 mg 7-25 (1) ity of tablet 00:00: TABLET(S) [place] 00 BY MOUTH Medical ONCE A DAY Branch BEFORE MEALS. atorvastati Yes [id number] 40mg Take 1 [facility] n 40 mg 7-25 tablet by ity of tablet 00:00: mouth at [place] 00 bedtime. Medical Branch lipase-prot Yes [id number] 1{capsu Take 1 [facility] ease-amylas 7-25 le} capsule by it y of e 00:00: mouth in [place] 12,000-38,0 00 the [facility] 00 -60,000 morning Branch unit and 1 capsule capsule at noon and 1 capsule in the evening. Take with meals. terazosin 5 Yes [id number] 5mg Take 1 [facility] mg capsule 7-25 capsule by ity of 00:00: mouth [place] 00 every Medical evening. Branch triamterene Yes [id number] 1{tbl} Take 1 [facility] -hydrochlor 7-25 tablet by ity of othiazid 00:00: mouth in [place] 37.5-25 mg 00 the Medical tablet morning. Branch amLODIPine- Yes [id number] 1{capsu Take 1 [facility] benazepriL 7-25 le} capsule by ity of 10-40 mg 00:00: mouth in [place] per capsule 00 the Medical morning. Branch aspirin 325 Yes [id number] 325mg Take 1 [facility] mg tablet 7-25 tablet by ity o f 00:00: mouth [place] 00 daily with Medical breakfast. Branch carvediloL Yes [id number] 25mg Take 1 [facility] 25 mg 7-25 tablet by ity of tablet 00:00: mouth in [place] 00 the Medical morning Branch and 1 tablet in the evening. Take with meals. TAKE ONE (1) TABLET(S) BY MOUTH TWICE A DAY WITH FOOD. nicotine 14 Yes [id number] 1{patch Apply 1 [facility] mg/24 hr 7-25 } Patch to ity of patch 00:00: area(s) [place] 00 every 24 Medical (twenty-fo Branch ur) hours. Apply 21mg patch daily x 6 weeks; then apply 14mf patch daily x 2 weeks; then apply 7mg patch daily x 2 weeks. Stop smoking on initiation of therapy nicotine 21 Yes [id number] 1{patch Apply 1 [facility] mg/24 hr 7-25 } Patch to ity of patch 00:00: area(s) in [place] 00 the Medical morning. Branch Apply 21mg patch daily x 6 weeks; then apply 14mg patch daily x 2 weeks; then apply 7mg patch daily x 2 weeks. Stop smoking on initiation of therapy nicotine 7 Yes [id number] 1{patch Apply 1 [facility] mg/24 hr 7-25 } Patch to ity of patch 00:00: area(s) [place] 00 every 24 Medical (twenty-fo Branch ur) hours. Apply 21mg patch daily x 6 weeks; then apply 14mg patch daily x 2 weeks; then apply 7mg patch daily x 2 weeks. Stop smoking on initiation of therapy glipiZIDE Yes [id number] TAKE ONE [facility] 10 mg 7-25 (1) ity of tablet 00:00: TABLET(S) [place] 00 BY MOUTH Medical ONCE A DAY Branch BEFORE MEALS. atorvastati Yes [id number] 40mg Take 1 [facility] n 40 mg 7-25 tablet by ity of tablet 00:00: mouth at [place] 00 bedtime. Medical Branch lipase-prot Yes [id number] 1{capsu Take 1 [facility] ease-amylas 7-25 le} capsule by it y of e 00:00: mouth in [place] 12,000-38,0 00 the Medical 00 -60,000 morning Branch unit and 1 capsule capsule at noon and 1 capsule in the evening. Take with meals. terazosin 5 Yes [id number] 5mg Take 1 [facility] mg capsule 7-25 capsule by ity of 00:00: mouth [place] 00 every Medical evening. Branch triamterene Yes [id number] 1{tbl} Take 1 [facility] -hydrochlor 7-25 tablet by ity of othiazid 00:00: mouth in [place] 37.5-25 mg 00 the Medical tablet morning. Branch amLODIPine- Yes [id number] 1{capsu Take 1 [facility] benazepriL 7-25 le} capsule by ity of 10-40 mg 00:00: mouth in [place] per capsule 00 the Medical morning. Branch aspirin 325 0 Yes [id number] 325mg Take 1 [facility] mg tablet 7-25 tablet by ity o f 00:00: mouth [place] 00 daily with Medical breakfast. Branch carvediloL Yes [id number] 25mg Take 1 [facility] 25 mg 7-25 tablet by ity of tablet 00:00: mouth in [place] 00 the Medical morning Branch and 1 tablet in the evening. Take with meals. TAKE ONE (1) TABLET(S) BY MOUTH TWICE A DAY WITH FOOD. nicotine 14 Yes [id number] 1{patch Apply 1 [facility] mg/24 hr 7-25 } Patch to ity of patch 00:00: area(s) [place] 00 every 24 Medical (twenty-fo Branch ur) hours. Apply 21mg patch daily x 6 weeks; then apply 14mf patch daily x 2 weeks; then apply 7mg patch daily x 2 weeks. Stop smoking on initiation of therapy nicotine 21 Yes [id number] 1{patch Apply 1 [facility] mg/24 hr 7-25 } Patch to ity of patch 00:00: area(s) in [place] 00 the Medical morning. Branch Apply 21mg patch daily x 6 weeks; then apply 14mg patch daily x 2 weeks; then apply 7mg patch daily x 2 weeks. Stop smoking on initiation of therapy nicotine 7 Yes [id number] 1{patch Apply 1 [facility] mg/24 hr 7-25 } Patch to ity of patch 00:00: area(s) [place] 00 every 24 Medical (twenty-fo Branch ur) hours. Apply 21mg patch daily x 6 weeks; then apply 14mg patch daily x 2 weeks; then apply 7mg patch daily x 2 weeks. Stop smoking on initiation of therapy glipiZIDE Yes [id number] TAKE ONE [facility] 10 mg 7-25 (1) ity of tablet 00:00: TABLET(S) [place] 00 BY MOUTH Medical ONCE A DAY Branch BEFORE MEALS. atorvastati Yes [id number] 40mg Take 1 [facility] n 40 mg 7-25 tablet by ity of tablet 00:00: mouth at [place] 00 bedtime. Medical Branch lipase-prot Yes [id number] 1{capsu Take 1 [facility] ease-amylas 7-25 le} capsule by it y of e 00:00: mouth in [place] 12,000-38,0 00 the Medical 00 -60,000 morning Branch unit and 1 capsule capsule at noon and 1 capsule in the evening. Take with meals. terazosin 5 Yes [id number] 5mg Take 1 [facility] mg capsule 7-25 capsule by ity of 00:00: mouth [place] 00 every Medical evening. Branch triamterene Yes [id number] 1{tbl} Take 1 [facility] -hydrochlor 7-25 tablet by ity of othiazid 00:00: mouth in [place] 37.5-25 mg 00 the Medical tablet morning. Branch amLODIPine- Yes [id number] 1{capsu Take 1 [facility] benazepriL 7-25 le} capsule by ity of 10-40 mg 00:00: mouth in [place] per capsule 00 the Medical morning. Branch aspirin 325 Yes [id number] 325mg Take 1 [facility] mg tablet 7-25 tablet by ity o f 00:00: mouth [place] 00 daily with Medical breakfast. Branch carvediloL Yes [id number] 25mg Take 1 [facility] 25 mg 7-25 tablet by ity of tablet 00:00: mouth in [place] 00 the Medical morning Branch and 1 tablet in the evening. Take with meals. TAKE ONE (1) TABLET(S) BY MOUTH TWICE A DAY WITH FOOD. nicotine 14 Yes [id number] 1{patch Apply 1 [facility] mg/24 hr 7-25 } Patch to ity of patch 00:00: area(s) [place] 00 every 24 Medical (twenty-fo Branch ur) hours. Apply 21mg patch daily x 6 weeks; then apply 14mf patch daily x 2 weeks; then apply 7mg patch daily x 2 weeks. Stop smoking on initiation of therapy nicotine 21 2021-0 Yes [id number] 1{patch Apply 1 [facility] mg/24 hr 7-25 } Patch to ity of patch 00:00: area(s) in [place] 00 the Medical morning. Branch Apply 21mg patch daily x 6 weeks; then apply 14mg patch daily x 2 weeks; then apply 7mg patch daily x 2 weeks. Stop smoking on initiation of therapy nicotine 7 Yes [id number] 1{patch Apply 1 [facility] mg/24 hr 7-25 } Patch to ity of patch 00:00: area(s) [place] 00 every 24 Medical (twenty-fo Branch ur) hours. Apply 21mg patch daily x 6 weeks; then apply 14mg patch daily x 2 weeks; then apply 7mg patch daily x 2 weeks. Stop smoking on initiation of therapy glipiZIDE Yes [id number] TAKE ONE [facility] 10 mg 7-25 (1) ity of tablet 00:00: TABLET(S) [place] 00 BY MOUTH Medical ONCE A DAY Branch BEFORE MEALS. atorvastati Yes [id number] 40mg Take 1 [facility] n 40 mg 7-25 tablet by ity of tablet 00:00: mouth at [place] 00 bedtime. Medical Branch lipase-prot Yes [id number] 1{capsu Take 1 [facility] ease-amylas 7-25 le} capsule by it y of e 00:00: mouth in [place] 12,000-38,0 00 the Medical 00 -60,000 morning Branch unit and 1 capsule capsule at noon and 1 capsule in the evening. Take with meals. terazosin 5 Yes [id number] 5mg Take 1 [facility] mg capsule 7-25 capsule by ity of 00:00: mouth [place] 00 every Medical evening. Branch triamterene Yes [id number] 1{tbl} Take 1 [facility] -hydrochlor 7-25 tablet by ity of othiazid 00:00: mouth in [place] 37.5-25 mg 00 the Medical tablet morning. Branch amLODIPine- Yes [id number] 1{capsu Take 1 [facility] benazepriL 7-25 le} capsule by ity of 10-40 mg 00:00: mouth in [place] per capsule 00 the Medical morning. Branch aspirin 325 Yes [id number] 325mg Take 1 [facility] mg tablet 7-25 tablet by ity o f 00:00: mouth [place] 00 daily with Medical breakfast. Branch carvediloL Yes [id number] 25mg Take 1 [facility] 25 mg 7-25 tablet by ity of tablet 00:00: mouth in [place] 00 the Medical morning Branch and 1 tablet in the evening. Take with meals. TAKE ONE (1) TABLET(S) BY MOUTH TWICE A DAY WITH FOOD. nicotine 14 Yes [id number] 1{patch Apply 1 [facility] mg/24 hr 7-25 } Patch to ity of patch 00:00: area(s) [place] 00 every 24 Medical ([facility] ur) hours. Apply 21mg patch daily x 6 weeks; then apply 14mf patch daily x 2 weeks; then apply 7mg patch daily x 2 weeks. Stop smoking on initiation of therapy nicotine 21 Yes [id number] 1{patch Apply 1 [facility] mg/24 hr 7-25 } Patch to ity of patch 00:00: area(s) in [place] 00 the Medical morning. Branch Apply 21mg patch daily x 6 weeks; then apply 14mg patch daily x 2 weeks; then apply 7mg patch daily x 2 weeks. Stop smoking on initiation of therapy nicotine 7 Yes [id number] 1{patch Apply 1 [facility] mg/24 hr 7-25 } Patch to ity of patch 00:00: area(s) [place] 00 every 24 Medical ([facility] ur) hours. Apply 21mg patch daily x 6 weeks; then apply 14mg patch daily x 2 weeks; then apply 7mg patch daily x 2 weeks. Stop smoking on initiation of therapy glipiZIDE Yes [id number] TAKE ONE [facility] 10 mg 7-25 (1) ity of tablet 00:00: TABLET(S) [place] 00 BY MOUTH Medical ONCE A DAY Branch BEFORE MEALS. atorvastati Yes [id number] 40mg Take 1 [facility] n 40 mg 7-25 tablet by ity of tablet 00:00: mouth at [place] 00 bedtime. [facility] Branch lipase-prot Yes [id number] 1{capsu Take 1 [facility] ease-amylas 7-25 le} capsule by it y of e 00:00: mouth in [place] 12,000-38,0 00 the [facility] 00 -60,000 morning Branch unit and 1 capsule capsule at noon and 1 capsule in the evening. Take with meals. terazosin 5 Yes [id number] 5mg Take 1 [facility] mg capsule 7-25 capsule by ity of 00:00: mouth [place] 00 every Medical evening. Branch triamterene Yes [id number] 1{tbl} Take 1 [facility] -hydrochlor 7-25 tablet by ity of othiazid 00:00: mouth in [place] 37.5-25 mg 00 the Medical tablet morning. Branch amLODIPine- Yes [id number] 1{capsu Take 1 [facility] benazepriL 7-25 le} capsule by ity of 10-40 mg 00:00: mouth in [place] per capsule 00 the Medical morning. Branch aspirin 325 Yes [id number] 325mg Take 1 [facility] mg tablet 7-25 tablet by ity o f 00:00: mouth [place] 00 daily with Medical breakfast. Branch carvediloL Yes [id number] 25mg Take 1 [facility] 25 mg 7-25 tablet by ity of tablet 00:00: mouth in [place] 00 the Medical morning Branch and 1 tablet in the evening. Take with meals. TAKE ONE (1) TABLET(S) BY MOUTH TWICE A DAY WITH FOOD. nicotine 14 Yes [id number] 1{patch Apply 1 [facility] mg/24 hr 7-25 } Patch to ity of patch 00:00: area(s) [place] 00 every 24 Medical (twenty-fo [place] ur) hours. Apply 21mg patch daily x 6 weeks; then apply 14mf patch daily x 2 weeks; then apply 7mg patch daily x 2 weeks. Stop smoking on initiation of therapy nicotine 21 Yes [id number] 1{patch Apply 1 [facility] mg/24 hr 7-25 } Patch to ity of patch 00:00: area(s) in [place] 00 the Medical morning. Branch Apply 21mg patch daily x 6 weeks; then apply 14mg patch daily x 2 weeks; then apply 7mg patch daily x 2 weeks. Stop smoking on initiation of therapy nicotine 7 Yes [id number] 1{patch Apply 1 [facility] mg/24 hr 7-25 } Patch to ity of patch 00:00: area(s) [place] 00 every 24 Medical (twenty-fo [place] ur) hours. Apply 21mg patch daily x 6 weeks; then apply 14mg patch daily x 2 weeks; then apply 7mg patch daily x 2 weeks. Stop smoking on initiation of therapy glipiZIDE Yes [id number] TAKE ONE [facility] 10 mg 7-25 (1) ity of tablet 00:00: TABLET(S) [place] 00 BY MOUTH Medical ONCE A DAY Branch BEFORE MEALS. atorvastati Yes [id number] 40mg Take 1 [facility] n 40 mg 7-25 tablet by ity of tablet 00:00: mouth at [place] 00 bedtime. Medical Branch lipase-prot Yes [id number] 1{capsu Take 1 [facility] ease-amylas 7-25 le} capsule by it y of e 00:00: mouth in [place] 12,000-38,0 00 the Medical 00 -60,000 morning Branch unit and 1 capsule capsule at noon and 1 capsule in the evening. Take with meals. terazosin 5 Yes [id number] 5mg Take 1 [facility] mg capsule 7-25 capsule by ity of 00:00: mouth [place] 00 every Medical evening. Branch triamterene Yes [id number] 1{tbl} Take 1 [facility] -hydrochlor 7-25 tablet by ity of othiazid 00:00: mouth in [place] 37.5-25 mg 00 the Medical tablet morning. Branch amLODIPine- Yes [id number] 1{capsu Take 1 [facility] benazepriL 7-25 le} capsule by ity of 10-40 mg 00:00: mouth in [place] per capsule 00 the Medical morning. Branch aspirin 325 Yes [id number] 325mg Take 1 [facility] mg tablet 7-25 tablet by ity o f 00:00: mouth [place] 00 daily with Medical breakfast. Branch carvediloL Yes [id number] 25mg Take 1 [facility] 25 mg 7-25 tablet by ity of tablet 00:00: mouth in [place] 00 the Medical morning Branch and 1 tablet in the evening. Take with meals. TAKE ONE (1) TABLET(S) BY MOUTH TWICE A DAY WITH FOOD. nicotine 14 Yes [id number] 1{patch Apply 1 [facility] mg/24 hr 7-25 } Patch to ity of patch 00:00: area(s) [place] 00 every 24 Medical (twenty-fo Branch ur) hours. Apply 21mg patch daily x 6 weeks; then apply 14mf patch daily x 2 weeks; then apply 7mg patch daily x 2 weeks. Stop smoking on initiation of therapy nicotine 21 2021- Yes [id number] 1{patch Apply 1 [facility] mg/24 hr 7-25 } Patch to ity of patch 00:00: area(s) in [place] 00 the Medical morning. Branch Apply 21mg patch daily x 6 weeks; then apply 14mg patch daily x 2 weeks; then apply 7mg patch daily x 2 weeks. Stop smoking on initiation of therapy nicotine 7 Yes [id number] 1{patch Apply 1 [facility] mg/24 hr 7-25 } Patch to ity of patch 00:00: area(s) [place] 00 every 24 Medical (twenty-fo Branch ur) hours. Apply 21mg patch daily x 6 weeks; then apply 14mg patch daily x 2 weeks; then apply 7mg patch daily x 2 weeks. Stop smoking on initiation of therapy glipiZIDE Yes [id number] TAKE ONE [facility] 10 mg 7-25 (1) ity of tablet 00:00: TABLET(S) [place] 00 BY MOUTH Medical ONCE A DAY Branch BEFORE MEALS. atorvastati Yes [id number] 40mg Take 1 [facility] n 40 mg 7-25 tablet by ity of tablet 00:00: mouth at [place] 00 bedtime. Medical Branch lipase-prot Yes [id number] 1{capsu Take 1 [facility] ease-amylas 7-25 le} capsule by it y of e 00:00: mouth in [place] 12,000-38,0 00 the Medical 00 -60,000 morning Branch unit and 1 capsule capsule at noon and 1 capsule in the evening. Take with meals. terazosin 5 Yes [id number] 5mg Take 1 [facility] mg capsule 7-25 capsule by ity of 00:00: mouth [place] 00 every Medical evening. Branch triamterene Yes [id number] 1{tbl} Take 1 [facility] -hydrochlor 7-25 tablet by ity of othiazid 00:00: mouth in [place] 37.5-25 mg 00 the Medical tablet morning. Branch amLODIPine- Yes [id number] 1{capsu Take 1 [facility] benazepriL 7-25 le} capsule by ity of 10-40 mg 00:00: mouth in [place] per capsule 00 the Medical morning. Branch aspirin 325 Yes [id number] 325mg Take 1 [facility] mg tablet 7-25 tablet by ity o f 00:00: mouth [place] 00 daily with Medical breakfast. Branch carvediloL Yes [id number] 25mg Take 1 [facility] 25 mg 7-25 tablet by ity of tablet 00:00: mouth in [place] 00 the Medical morning Branch and 1 tablet in the evening. Take with meals. TAKE ONE (1) TABLET(S) BY MOUTH TWICE A DAY WITH FOOD. nicotine 14 Yes [id number] 1{patch Apply 1 [facility] mg/24 hr 7-25 } Patch to ity of patch 00:00: area(s) [place] 00 every 24 Medical ([facility] ur) hours. Apply 21mg patch daily x 6 weeks; then apply 14mf patch daily x 2 weeks; then apply 7mg patch daily x 2 weeks. Stop smoking on initiation of therapy nicotine 21 Yes [id number] 1{patch Apply 1 [facility] mg/24 hr 7-25 } Patch to ity of patch 00:00: area(s) in [place] 00 the Medical morning. Branch Apply 21mg patch daily x 6 weeks; then apply 14mg patch daily x 2 weeks; then apply 7mg patch daily x 2 weeks. Stop smoking on initiation of therapy nicotine 7 Yes [id number] 1{patch Apply 1 [facility] mg/24 hr 7-25 } Patch to ity of patch 00:00: area(s) [place] 00 every 24 Medical ([facility] ur) hours. Apply 21mg patch daily x 6 weeks; then apply 14mg patch daily x 2 weeks; then apply 7mg patch daily x 2 weeks. Stop smoking on initiation of therapy glipiZIDE Yes [id number] TAKE ONE [facility] 10 mg 7-25 (1) ity of tablet 00:00: TABLET(S) [place] 00 BY MOUTH Medical ONCE A DAY Branch BEFORE MEALS. atorvastati Yes [id number] 40mg Take 1 [facility] n 40 mg 7-25 tablet by ity of tablet 00:00: mouth at [place] 00 bedtime. Medical Branch lipase-prot Yes [id number] 1{capsu Take 1 [facility] ease-amylas 7-25 le} capsule by it y of e 00:00: mouth in [place] 12,000-38,0 00 the [facility] 00 -60,000 morning Branch unit and 1 capsule capsule at noon and 1 capsule in the evening. Take with meals. terazosin 5 Yes [id number] 5mg Take 1 [facility] mg capsule 7-25 capsule by ity of 00:00: mouth [place] 00 every Medical evening. Branch triamterene Yes [id number] 1{tbl} Take 1 [facility] -hydrochlor 7-25 tablet by ity of othiazid 00:00: mouth in [place] 37.5-25 mg 00 the Medical tablet morning. Branch amLODIPine- Yes [id number] 1{capsu Take 1 [facility] benazepriL 7-25 le} capsule by ity of 10-40 mg 00:00: mouth in [place] per capsule 00 the Medical morning. Branch aspirin 325 Yes [id number] 325mg Take 1 [facility] mg tablet 7-25 tablet by ity o f 00:00: mouth [place] 00 daily with Medical breakfast. Branch carvediloL Yes [id number] 25mg Take 1 [facility] 25 mg 7-25 tablet by ity of tablet 00:00: mouth in [place] 00 the Medical morning Branch and 1 tablet in the evening. Take with meals. TAKE ONE (1) TABLET(S) BY MOUTH TWICE A DAY WITH FOOD. nicotine 14 Yes [id number] 1{patch Apply 1 [facility] mg/24 hr 7-25 } Patch to ity of patch 00:00: area(s) [place] 00 every 24 Medical ([facility] ur) hours. Apply 21mg patch daily x 6 weeks; then apply 14mf patch daily x 2 weeks; then apply 7mg patch daily x 2 weeks. Stop smoking on initiation of therapy nicotine 21 Yes [id number] 1{patch Apply 1 [facility] mg/24 hr 7-25 } Patch to ity of patch 00:00: area(s) in [place] 00 the Medical morning. Branch Apply 21mg patch daily x 6 weeks; then apply 14mg patch daily x 2 weeks; then apply 7mg patch daily x 2 weeks. Stop smoking on initiation of therapy nicotine 7 Yes [id number] 1{patch Apply 1 [facility] mg/24 hr 7-25 } Patch to ity of patch 00:00: area(s) [place] 00 every 24 Medical ([facility] ur) hours. Apply 21mg patch daily x 6 weeks; then apply 14mg patch daily x 2 weeks; then apply 7mg patch daily x 2 weeks. Stop smoking on initiation of therapy glipiZIDE Yes [id number] TAKE ONE [facility] 10 mg 7-25 (1) ity of tablet 00:00: TABLET(S) [place] 00 BY MOUTH Medical ONCE A DAY Branch BEFORE MEALS. atorvastati Yes [id number] 40mg Take 1 [facility] n 40 mg 7-25 tablet by ity of tablet 00:00: mouth at [place] 00 bedtime. Medical Branch lipase-prot Yes [id number] 1{capsu Take 1 [facility] ease-amylas 7-25 le} capsule by it y of e 00:00: mouth in [place] 12,000-38,0 00 the Medical 00 -60,000 morning Branch unit and 1 capsule capsule at noon and 1 capsule in the evening. Take with meals. terazosin 5 Yes [id number] 5mg Take 1 [facility] mg capsule 7-25 capsule by ity of 00:00: mouth [place] 00 every Medical evening. Branch triamterene Yes [id number] 1{tbl} Take 1 [facility] -hydrochlor 7-25 tablet by ity of othiazid 00:00: mouth in [place] 37.5-25 mg 00 the Medical tablet morning. Branch amLODIPine- Yes [id number] 1{capsu Take 1 [facility] benazepriL 7-25 le} capsule by ity of 10-40 mg 00:00: mouth in [place] per capsule 00 the Medical morning. Branch aspirin 325 Yes [id number] 325mg Take 1 [facility] mg tablet 7-25 tablet by ity o f 00:00: mouth [place] 00 daily with Medical breakfast. Branch carvediloL Yes [id number] 25mg Take 1 [facility] 25 mg 7-25 tablet by ity of tablet 00:00: mouth in [place] 00 the Medical morning Branch and 1 tablet in the evening. Take with meals. TAKE ONE (1) TABLET(S) BY MOUTH TWICE A DAY WITH FOOD. nicotine 14 Yes [id number] 1{patch Apply 1 [facility] mg/24 hr 7-25 } Patch to ity of patch 00:00: area(s) [place] 00 every 24 Medical (twenty-fo Branch ur) hours. Apply 21mg patch daily x 6 weeks; then apply 14mf patch daily x 2 weeks; then apply 7mg patch daily x 2 weeks. Stop smoking on initiation of therapy nicotine 21 Yes [id number] 1{patch Apply 1 [facility] mg/24 hr 7-25 } Patch to ity of patch 00:00: area(s) in [place] 00 the Medical morning. Branch Apply 21mg patch daily x 6 weeks; then apply 14mg patch daily x 2 weeks; then apply 7mg patch daily x 2 weeks. Stop smoking on initiation of therapy nicotine 7 Yes [id number] 1{patch Apply 1 [facility] mg/24 hr 7-25 } Patch to ity of patch 00:00: area(s) [place] 00 every 24 Medical (twenty-fo Branch ur) hours. Apply 21mg patch daily x 6 weeks; then apply 14mg patch daily x 2 weeks; then apply 7mg patch daily x 2 weeks. Stop smoking on initiation of therapy glipiZIDE Yes [id number] TAKE ONE [facility] 10 mg 7-25 (1) ity of tablet 00:00: TABLET(S) [place] 00 BY MOUTH Medical ONCE A DAY Branch BEFORE MEALS. atorvastati Yes [id number] 40mg Take 1 [facility] n 40 mg 7-25 tablet by ity of tablet 00:00: mouth at [place] 00 bedtime. Medical Branch lipase-prot Yes [id number] 1{capsu Take 1 [facility] ease-amylas 7-25 le} capsule by it y of e 00:00: mouth in [place] 12,000-38,0 00 the Medical 00 -60,000 morning Branch unit and 1 capsule capsule at noon and 1 capsule in the evening. Take with meals. terazosin 5 Yes [id number] 5mg Take 1 [facility] mg capsule 7-25 capsule by ity of 00:00: mouth [place] 00 every Medical evening. Branch triamterene Yes [id number] 1{tbl} Take 1 [facility] -hydrochlor 7-25 tablet by ity of othiazid 00:00: mouth in [place] 37.5-25 mg 00 the Medical tablet morning. Branch amLODIPine- Yes [id number] 1{capsu Take 1 [facility] benazepriL 7-25 le} capsule by ity of 10-40 mg 00:00: mouth in [place] per capsule 00 the Medical morning. Branch aspirin 325 Yes [id number] 325mg Take 1 [facility] mg tablet 7-25 tablet by ity o f 00:00: mouth [place] 00 daily with Medical breakfast. Branch carvediloL Yes [id number] 25mg Take 1 [facility] 25 mg 7-25 tablet by ity of tablet 00:00: mouth in [place] 00 the Medical morning Branch and 1 tablet in the evening. Take with meals. TAKE ONE (1) TABLET(S) BY MOUTH TWICE A DAY WITH FOOD. nicotine 14 Yes [id number] 1{patch Apply 1 [facility] mg/24 hr 7-25 } Patch to ity of patch 00:00: area(s) [place] 00 every 24 Medical (twenty- Branch ur) hours. Apply 21mg patch daily x 6 weeks; then apply 14mf patch daily x 2 weeks; then apply 7mg patch daily x 2 weeks. Stop smoking on initiation of therapy nicotine 21 Yes [id number] 1{patch Apply 1 [facility] mg/24 hr 7-25 } Patch to ity of patch 00:00: area(s) in [place] 00 the Medical morning. Branch Apply 21mg patch daily x 6 weeks; then apply 14mg patch daily x 2 weeks; then apply 7mg patch daily x 2 weeks. Stop smoking on initiation of therapy nicotine 7 Yes [id number] 1{patch Apply 1 [facility] mg/24 hr 7-25 } Patch to ity of patch 00:00: area(s) [place] 00 every 24 Medical ([facility] ur) hours. Apply 21mg patch daily x 6 weeks; then apply 14mg patch daily x 2 weeks; then apply 7mg patch daily x 2 weeks. Stop smoking on initiation of therapy glipiZIDE Yes [id number] TAKE ONE [facility] 10 mg 7-25 (1) ity of tablet 00:00: TABLET(S) [place] 00 BY MOUTH Medical ONCE A DAY Branch BEFORE MEALS. atorvastati Yes [id number] 40mg Take 1 [facility] n 40 mg 7-25 tablet by ity of tablet 00:00: mouth at [place] 00 bedtime. Medical Branch lipase-prot Yes [id number] 1{capsu Take 1 [facility] ease-amylas 7-25 le} capsule by it y of e 00:00: mouth in [place] 12,000-38,0 00 the Medical 00 -60,000 morning Branch unit and 1 capsule capsule at noon and 1 capsule in the evening. Take with meals. terazosin 5 Yes [id number] 5mg Take 1 [facility] mg capsule 7-25 capsule by ity of 00:00: mouth [place] 00 every Medical evening. Branch triamterene Yes [id number] 1{tbl} Take 1 [facility] -hydrochlor 7-25 tablet by ity of othiazid 00:00: mouth in [place] 37.5-25 mg 00 the Medical tablet morning. Branch amLODIPine- Yes [id number] 1{capsu Take 1 [facility] benazepriL 7-25 le} capsule by ity of 10-40 mg 00:00: mouth in [place] per capsule 00 the Medical morning. Branch aspirin 325 Yes [id number] 325mg Take 1 [facility] mg tablet 7-25 tablet by ity o f 00:00: mouth [place] 00 daily with Medical breakfast. Branch carvediloL Yes [id number] 25mg Take 1 [facility] 25 mg 7-25 tablet by ity of tablet 00:00: mouth in [place] 00 the Medical morning Branch and 1 tablet in the evening. Take with meals. TAKE ONE (1) TABLET(S) BY MOUTH TWICE A DAY WITH FOOD. nicotine Yes [id number] 1{patch Apply 1 [facility] mg/24 hr 7-25 } Patch to ity of patch 00:00: area(s) [place] 00 every 24 Medical (twenty-fo Branch ur) hours. Apply 21mg patch daily x 6 weeks; then apply 14mf patch daily x 2 weeks; then apply 7mg patch daily x 2 weeks. Stop smoking on initiation of therapy nicotine 21 2021- Yes [id number] 1{patch Apply 1 [facility] mg/24 hr 7-25 } Patch to ity of patch 00:00: area(s) in [place] 00 the Medical morning. Branch Apply 21mg patch daily x 6 weeks; then apply 14mg patch daily x 2 weeks; then apply 7mg patch daily x 2 weeks. Stop smoking on initiation of therapy nicotine 7 2021- Yes [id number] 1{patch Apply 1 [facility] mg/24 hr 7-25 } Patch to ity of patch 00:00: area(s) [place] 00 every 24 Medical (twenty-fo Branch ur) hours. Apply 21mg patch daily x 6 weeks; then apply 14mg patch daily x 2 weeks; then apply 7mg patch daily x 2 weeks. Stop smoking on initiation of therapy glipiZIDE Yes [id number] TAKE ONE [facility] 10 mg 7-25 (1) ity of tablet 00:00: TABLET(S) [place] 00 BY MOUTH Medical ONCE A DAY Branch BEFORE MEALS. lipase-prot Yes [id number] 1{capsu Take 1 [facility] ease-amylas 7-25 le} capsule by it y of e 00:00: mouth in [place] 12,000-38,0 00 the [facility] 00 -60,000 morning Branch unit and 1 capsule capsule at noon and 1 capsule in the evening. Take with meals. aspirin 325 Yes [id number] 325mg Take 1 [facility] mg tablet 7-25 tablet by ity o f 00:00: mouth [place] 00 daily with Medical breakfast. Branch nicotine 14 Yes [id number] 1{patch Apply 1 [facility] mg/24 hr 7-25 } Patch to ity of patch 00:00: area(s) [place] 00 every 24 Medical (twenty-fo Branch ur) hours. Apply 21mg patch daily x 6 weeks; then apply 14mf patch daily x 2 weeks; then apply 7mg patch daily x 2 weeks. Stop smoking on initiation of therapy nicotine 21 Yes [id number] 1{patch Apply 1 [facility] mg/24 hr 7-25 } Patch to ity of patch 00:00: area(s) in [place] 00 the Medical morning. Branch Apply 21mg patch daily x 6 weeks; then apply 14mg patch daily x 2 weeks; then apply 7mg patch daily x 2 weeks. Stop smoking on initiation of therapy nicotine 7 Yes [id number] 1{patch Apply 1 [facility] mg/24 hr 7-25 } Patch to ity of patch 00:00: area(s) [place] 00 every 24 Medical (twenty-fo Branch ur) hours. Apply 21mg patch daily x 6 weeks; then apply 14mg patch daily x 2 weeks; then apply 7mg patch daily x 2 weeks. Stop smoking on initiation of therapy glipiZIDE Yes [id number] TAKE ONE [facility] 10 mg 7-25 (1) ity of tablet 00:00: TABLET(S) 00 BY MOUTH Medical ONCE A DAY Branch BEFORE MEALS. lipase-prot Yes [id number] 1{capsu Take 1 [facility] ease-amylas 7-25 le} capsule by it y of e 00:00: mouth in [place] 12,000-38,0 00 the Medical 00 -60,000 morning Branch unit and 1 capsule capsule at noon and 1 capsule in the evening. Take with meals. aspirin 325 Yes [id number] 325mg Take 1 [facility] mg tablet 7-25 tablet by ity o f 00:00: mouth [place] 00 daily with Medical breakfast. Branch nicotine 14 Yes [id number] 1{patch Apply 1 [facility] mg/24 hr 7-25 } Patch to ity of patch 00:00: area(s) [place] 00 every 24 Medical (twenty-fo Branch ur) hours. Apply 21mg patch daily x 6 weeks; then apply 14mf patch daily x 2 weeks; then apply 7mg patch daily x 2 weeks. Stop smoking on initiation of therapy nicotine 21 Yes [id number] 1{patch Apply 1 [facility] mg/24 hr 7-25 } Patch to ity of patch 00:00: area(s) in [place] 00 the Medical morning. Branch Apply 21mg patch daily x 6 weeks; then apply 14mg patch daily x 2 weeks; then apply 7mg patch daily x 2 weeks. Stop smoking on initiation of therapy nicotine 7 Yes [id number] 1{patch Apply 1 [facility] mg/24 hr 7-25 } Patch to ity of patch 00:00: area(s) [place] 00 every 24 Medical (twenty-fo Branch ur) hours. Apply 21mg patch daily x 6 weeks; then apply 14mg patch daily x 2 weeks; then apply 7mg patch daily x 2 weeks. Stop smoking on initiation of therapy glipiZIDE Yes [id number] TAKE ONE [facility] 10 mg 7-25 (1) ity of tablet 00:00: TABLET(S) [place] 00 BY MOUTH Medical ONCE A DAY Branch BEFORE MEALS. lipase-prot Yes [id number] 1{capsu Take 1 [facility] ease-amylas 7-25 le} capsule by it y of e 00:00: mouth in [place] 00 the Medical morning Branch unit and 1 capsule capsule at noon and 1 capsule in the evening. Take with meals. aspirin 325 Yes [id number] 325mg Take 1 [facility] mg tablet 7-25 tablet by ity o f 00:00: mouth daily with Medical breakfast. Branch nicotine 14 Yes [id number] 1{patch Apply 1 [facility] mg/24 hr 7-25 } Patch to ity of patch 00:00: area(s) [place] 00 every 24 Medical ([facility] ur) hours. Apply 21mg patch daily x 6 weeks; then apply 14mf patch daily x 2 weeks; then apply 7mg patch daily x 2 weeks. Stop smoking on initiation of therapy nicotine 21 Yes [id number] 1{patch Apply 1 [facility] mg/24 hr 7-25 } Patch to ity of patch 00:00: area(s) in [place] 00 the Medical morning. Branch Apply 21mg patch daily x 6 weeks; then apply 14mg patch daily x 2 weeks; then apply 7mg patch daily x 2 weeks. Stop smoking on initiation of therapy nicotine 7 Yes [id number] 1{patch Apply 1 [facility] mg/24 hr 7-25 } Patch to ity of patch 00:00: area(s) [place] 00 every 24 Medical ([facility] ur) hours. Apply 21mg patch daily x 6 weeks; then apply 14mg patch daily x 2 weeks; then apply 7mg patch daily x 2 weeks. Stop smoking on initiation of therapy glipiZIDE Yes [id number] TAKE ONE [facility] 10 mg 7-25 (1) ity of tablet 00:00: TABLET(S) [place] BY MOUTH Medical ONCE A DAY Branch BEFORE MEALS. lipase-prot Yes [id number] 1{capsu Take 1 [facility] ease-amylas 7-25 le} capsule by it y of e 00:00: mouth in [place] 00 the Medical morning Branch unit and 1 capsule capsule at noon and 1 capsule in the evening. Take with meals. aspirin 325 Yes [id number] 325mg Take 1 [facility] mg tablet 7-25 tablet by ity o f 00:00: mouth daily with Medical breakfast. Branch nicotine 14 Yes [id number] 1{patch Apply 1 [facility] mg/24 hr 7-25 } Patch to ity of patch 00:00: area(s) [place] 00 every 24 Medical (twenty-fo Branch ur) hours. Apply 21mg patch daily x 6 weeks; then apply 14mf patch daily x 2 weeks; then apply 7mg patch daily x 2 weeks. Stop smoking on initiation of therapy nicotine 21 Yes [id number] 1{patch Apply 1 [facility] mg/24 hr 7-25 } Patch to ity of patch 00:00: area(s) in [place] 00 the Medical morning. Branch Apply 21mg patch daily x 6 weeks; then apply 14mg patch daily x 2 weeks; then apply 7mg patch daily x 2 weeks. Stop smoking on initiation of therapy nicotine 7 Yes [id number] 1{patch Apply 1 [facility] mg/24 hr 7-25 } Patch to ity of patch 00:00: area(s) [place] 00 every 24 Medical (twenty-fo Branch ur) hours. Apply 21mg patch daily x 6 weeks; then apply 14mg patch daily x 2 weeks; then apply 7mg patch daily x 2 weeks. Stop smoking on initiation of therapy glipiZIDE Yes [id number] TAKE ONE [facility] 10 mg 7-25 (1) ity of tablet 00:00: TABLET(S) [place] 00 BY MOUTH [facility] ONCE A DAY Branch BEFORE MEALS. lipase-prot Yes [id number] 1{capsu Take 1 [facility] ease-amylas 7-25 le} capsule by it y of e 00:00: mouth in [place] 12,000-38,0 00 the [facility] 00 -60,000 morning Branch unit and 1 capsule capsule at noon and 1 capsule in the evening. Take with meals. aspirin 325 Yes [id number] 325mg Take 1 [facility] mg tablet 7-25 tablet by ity o f 00:00: mouth [place] 00 daily with Medical breakfast. Branch nicotine 14 Yes [id number] 1{patch Apply 1 [facility] mg/24 hr 7-25 } Patch to ity of patch 00:00: area(s) [place] 00 every 24 Medical (twenty-fo Branch ur) hours. Apply 21mg patch daily x 6 weeks; then apply 14mf patch daily x 2 weeks; then apply 7mg patch daily x 2 weeks. Stop smoking on initiation of therapy nicotine Yes [id number] 1{patch Apply 1 [facility] mg/24 hr 7-25 } Patch to ity of patch 00:00: area(s) in [place] 00 the Medical morning. Branch Apply 21mg patch daily x 6 weeks; then apply 14mg patch daily x 2 weeks; then apply 7mg patch daily x 2 weeks. Stop smoking on initiation of therapy nicotine 7 Yes [id number] 1{patch Apply 1 [facility] mg/24 hr 7-25 } Patch to ity of patch 00:00: area(s) [place] 00 every 24 Medical (twenty-fo Branch ur) hours. Apply 21mg patch daily x 6 weeks; then apply 14mg patch daily x 2 weeks; then apply 7mg patch daily x 2 weeks. Stop smoking on initiation of therapy glipiZIDE Yes [id number] TAKE ONE [facility] 10 mg 7-25 (1) ity of tablet 00:00: TABLET(S) [place] 00 BY MOUTH Medical ONCE A DAY Branch BEFORE MEALS. lipase-prot Yes [id number] 1{capsu Take 1 [facility] ease-amylas 7-25 le} capsule by it y of e 00:00: mouth in [place] 12,000-38,0 00 the [facility] 00 -60,000 morning Branch unit and 1 capsule capsule at noon and 1 capsule in the evening. Take with meals. aspirin 325 Yes [id number] 325mg Take 1 [facility] mg tablet 7-25 tablet by ity o f 00:00: mouth [place] 00 daily with Medical breakfast. Branch nicotine Yes [id number] 1{patch Apply 1 [facility] mg/24 hr 7-25 } Patch to ity of patch 00:00: area(s) [place] 00 every 24 Medical (twenty-fo Branch ur) hours. Apply 21mg patch daily x 6 weeks; then apply 14mf patch daily x 2 weeks; then apply 7mg patch daily x 2 weeks. Stop smoking on initiation of therapy nicotine Yes [id number] 1{patch Apply 1 [facility] mg/24 hr 7-25 } Patch to ity of patch 00:00: area(s) in [place] 00 the Medical morning. Branch Apply 21mg patch daily x 6 weeks; then apply 14mg patch daily x 2 weeks; then apply 7mg patch daily x 2 weeks. Stop smoking on initiation of therapy nicotine 7 Yes [id number] 1{patch Apply 1 [facility] mg/24 hr 7-25 } Patch to ity of patch 00:00: area(s) [place] 00 every 24 Medical ([facility] Branch ur) hours. Apply 21mg patch daily x 6 weeks; then apply 14mg patch daily x 2 weeks; then apply 7mg patch daily x 2 weeks. Stop smoking on initiation of therapy glipiZIDE Yes [id number] TAKE ONE [facility] 10 mg 7-25 (1) ity of tablet 00:00: TABLET(S) [place] 00 BY MOUTH Medical ONCE A DAY Branch BEFORE MEALS. lipase-prot Yes [id number] 1{capsu Take 1 [facility] ease-amylas 7-25 le} capsule by it y of e 00:00: mouth in [place] 12,000-38,0 00 the [facility] 00 -60,000 morning Branch unit and 1 capsule capsule at noon and 1 capsule in the evening. Take with meals. aspirin 325 Yes [id number] 325mg Take 1 [facility] mg tablet 7-25 tablet by ity o f 00:00: mouth [place] 00 daily with Medical breakfast. Branch nicotine 14 Yes [id number] 1{patch Apply 1 [facility] mg/24 hr 7-25 } Patch to ity of patch 00:00: area(s) [place] 00 every 24 Medical ([facility] Branch ur) hours. Apply 21mg patch daily x 6 weeks; then apply 14mf patch daily x 2 weeks; then apply 7mg patch daily x 2 weeks. Stop smoking on initiation of therapy nicotine Yes [id number] 1{patch Apply 1 [facility] mg/24 hr 7-25 } Patch to ity of patch 00:00: area(s) in [place] 00 the Medical morning. Branch Apply 21mg patch daily x 6 weeks; then apply 14mg patch daily x 2 weeks; then apply 7mg patch daily x 2 weeks. Stop smoking on initiation of therapy nicotine 7 Yes [id number] 1{patch Apply 1 [facility] mg/24 hr 7-25 } Patch to ity of patch 00:00: area(s) [place] 00 every 24 Medical (twenty- Branch ur) hours. Apply 21mg patch daily x 6 weeks; then apply 14mg patch daily x 2 weeks; then apply 7mg patch daily x 2 weeks. Stop smoking on initiation of therapy glipiZIDE Yes [id number] TAKE ONE [facility] 10 mg 7-25 (1) ity of tablet 00:00: TABLET(S) [place] 00 BY MOUTH Medical ONCE A DAY Branch BEFORE MEALS. lipase-prot Yes [id number] 1{capsu Take 1 [facility] ease-amylas 7-25 le} capsule by it y of e 00:00: mouth in [place] 12,000-38,0 00 the Medical 00 -60,000 morning Branch unit and 1 capsule capsule at noon and 1 capsule in the evening. Take with meals. aspirin 325 Yes [id number] 325mg Take 1 [facility] mg tablet 7-25 tablet by ity o f 00:00: mouth [place] 00 daily with Medical breakfast. Branch nicotine 14 Yes [id number] 1{patch Apply 1 [facility] mg/24 hr 7-25 } Patch to ity of patch 00:00: area(s) [place] 00 every 24 Medical (twenty-fo Branch ur) hours. Apply 21mg patch daily x 6 weeks; then apply 14mf patch daily x 2 weeks; then apply 7mg patch daily x 2 weeks. Stop smoking on initiation of therapy nicotine 21 Yes [id number] 1{patch Apply 1 [facility] mg/24 hr 7-25 } Patch to ity of patch 00:00: area(s) in [place] 00 the Medical morning. Branch Apply 21mg patch daily x 6 weeks; then apply 14mg patch daily x 2 weeks; then apply 7mg patch daily x 2 weeks. Stop smoking on initiation of therapy nicotine 7 Yes [id number] 1{patch Apply 1 [facility] mg/24 hr 7-25 } Patch to ity of patch 00:00: area(s) [place] 00 every 24 Medical (twenty-fo Branch ur) hours. Apply 21mg patch daily x 6 weeks; then apply 14mg patch daily x 2 weeks; then apply 7mg patch daily x 2 weeks. Stop smoking on initiation of therapy glipiZIDE Yes [id number] TAKE ONE [facility] 10 mg 7-25 (1) ity of tablet 00:00: TABLET(S) [place] 00 BY MOUTH Medical ONCE A DAY Branch BEFORE MEALS. lipase-prot Yes [id number] 1{capsu Take 1 [facility] ease-amylas 7-25 le} capsule by it y of e 00:00: mouth in [place] -,0 00 the Medical morning Branch unit and 1 capsule capsule at noon and 1 capsule in the evening. Take with meals. aspirin 325 Yes [id number] 325mg Take 1 [facility] mg tablet 7-25 tablet by ity o f 00:00: mouth [place] 00 daily with Medical breakfast. Branch nicotine 14 Yes [id number] 1{patch Apply 1 [facility] mg/24 hr 7-25 } Patch to ity of patch 00:00: area(s) [place] 00 every 24 Medical (twenty- Branch ur) hours. Apply 21mg patch daily x 6 weeks; then apply 14mf patch daily x 2 weeks; then apply 7mg patch daily x 2 weeks. Stop smoking on initiation of therapy nicotine 21 Yes [id number] 1{patch Apply 1 [facility] mg/24 hr 7-25 } Patch to ity of patch 00:00: area(s) in [place] 00 the Medical morning. Branch Apply 21mg patch daily x 6 weeks; then apply 14mg patch daily x 2 weeks; then apply 7mg patch daily x 2 weeks. Stop smoking on initiation of therapy nicotine 7 Yes [id number] 1{patch Apply 1 [facility] mg/24 hr 7-25 } Patch to ity of patch 00:00: area(s) [place] 00 every 24 Medical (twenty-fo Branch ur) hours. Apply 21mg patch daily x 6 weeks; then apply 14mg patch daily x 2 weeks; then apply 7mg patch daily x 2 weeks. Stop smoking on initiation of therapy glipiZIDE Yes [id number] TAKE ONE [facility] 10 mg 7-25 (1) ity of tablet 00:00: TABLET(S) [place] 00 BY MOUTH Medical ONCE A DAY Branch BEFORE MEALS. lipase-prot Yes [id number] 1{capsu Take 1 [facility] ease-amylas 7-25 le} capsule by it y of e 00:00: mouth in [place] 12,-38,0 00 the Medical 60, morning Branch unit and 1 capsule capsule at noon and 1 capsule in the evening. Take with meals. aspirin 325 Yes [id number] 325mg Take 1 [facility] mg tablet 7-25 tablet by ity o f 00:00: mouth [place] 00 daily with Medical breakfast. Branch nicotine Yes [id number] 1{patch Apply 1 [facility] mg/24 hr 7-25 } Patch to ity of patch 00:00: area(s) [place] 00 every 24 Medical (twenty-fo Branch ur) hours. Apply 21mg patch daily x 6 weeks; then apply 14mf patch daily x 2 weeks; then apply 7mg patch daily x 2 weeks. Stop smoking on initiation of therapy nicotine 21 Yes [id number] 1{patch Apply 1 [facility] mg/24 hr 7-25 } Patch to ity of patch 00:00: area(s) in [place] 00 the Medical morning. Branch Apply 21mg patch daily x 6 weeks; then apply 14mg patch daily x 2 weeks; then apply 7mg patch daily x 2 weeks. Stop smoking on initiation of therapy nicotine 7 Yes [id number] 1{patch Apply 1 [facility] mg/24 hr 7-25 } Patch to ity of patch 00:00: area(s) [place] 00 every 24 Medical (twenty-fo [place] ur) hours. Apply 21mg patch daily x 6 weeks; then apply 14mg patch daily x 2 weeks; then apply 7mg patch daily x 2 weeks. Stop smoking on initiation of therapy glipiZIDE Yes [id number] TAKE ONE [facility] 10 mg 7-25 (1) ity of tablet 00:00: TABLET(S) [place] 00 BY MOUTH Medical ONCE A DAY Branch BEFORE MEALS. lipase-prot Yes [id number] 1{capsu Take 1 [facility] ease-amylas 7-25 le} capsule by it y of e 00:00: mouth in [place] 12,000-38,0 00 the [facility] 00 -60,000 morning Branch unit and 1 capsule capsule at noon and 1 capsule in the evening. Take with meals. aspirin 325 Yes [id number] 325mg Take 1 [facility] mg tablet 7-25 tablet by ity o f 00:00: mouth [place] 00 daily with Medical breakfast. Branch nicotine Yes [id number] 1{patch Apply 1 [facility] mg/24 hr 7-25 } Patch to ity of patch 00:00: area(s) [place] 00 every 24 Medical (twenty- Branch ur) hours. Apply 21mg patch daily x 6 weeks; then apply 14mf patch daily x 2 weeks; then apply 7mg patch daily x 2 weeks. Stop smoking on initiation of therapy nicotine 21 Yes [id number] 1{patch Apply 1 [facility] mg/24 hr 7-25 } Patch to ity of patch 00:00: area(s) in [place] 00 the Medical morning. Branch Apply 21mg patch daily x 6 weeks; then apply 14mg patch daily x 2 weeks; then apply 7mg patch daily x 2 weeks. Stop smoking on initiation of therapy nicotine 7 Yes [id number] 1{patch Apply 1 [facility] mg/24 hr 7-25 } Patch to ity of patch 00:00: area(s) [place] 00 every 24 Medical (twenty- Branch ur) hours. Apply 21mg patch daily x 6 weeks; then apply 14mg patch daily x 2 weeks; then apply 7mg patch daily x 2 weeks. Stop smoking on initiation of therapy glipiZIDE Yes [id number] TAKE ONE [facility] 10 mg 7-25 (1) ity of tablet 00:00: TABLET(S) [place] 00 BY MOUTH Medical ONCE A DAY Branch BEFORE MEALS. lipase-prot Yes [id number] 1{capsu Take 1 [facility] ease-amylas 7-25 le} capsule by it y of e 00:00: mouth in [place] 12,000-38,0 00 the [facility] 00 -60,000 morning Branch unit and 1 capsule capsule at noon and 1 capsule in the evening. Take with meals. aspirin 325 Yes [id number] 325mg Take 1 [facility] mg tablet 7-25 tablet by ity o f 00:00: mouth [place] 00 daily with Medical breakfast. Branch nicotine 14 Yes [id number] 1{patch Apply 1 [facility] mg/24 hr 7-25 } Patch to ity of patch 00:00: area(s) [place] 00 every 24 Medical (twenty- Branch ur) hours. Apply 21mg patch daily x 6 weeks; then apply 14mf patch daily x 2 weeks; then apply 7mg patch daily x 2 weeks. Stop smoking on initiation of therapy nicotine 21 Yes [id number] 1{patch Apply 1 [facility] mg/24 hr 7-25 } Patch to ity of patch 00:00: area(s) in [place] 00 the Medical morning. Branch Apply 21mg patch daily x 6 weeks; then apply 14mg patch daily x 2 weeks; then apply 7mg patch daily x 2 weeks. Stop smoking on initiation of therapy nicotine 7 Yes [id number] 1{patch Apply 1 [facility] mg/24 hr 7-25 } Patch to ity of patch 00:00: area(s) [place] 00 every 24 Medical (twenty-fo Branch ur) hours. Apply 21mg patch daily x 6 weeks; then apply 14mg patch daily x 2 weeks; then apply 7mg patch daily x 2 weeks. Stop smoking on initiation of therapy glipiZIDE Yes [id number] TAKE ONE [facility] 10 mg 7-25 (1) ity of tablet 00:00: TABLET(S) [place] 00 BY MOUTH Medical ONCE A DAY Branch BEFORE MEALS. lipase-prot Yes [id number] 1{capsu Take 1 [facility] ease-amylas 7-25 le} capsule by it y of e 00:00: mouth in [place] 12,000-38,0 00 the [facility] 00 -60,000 morning Branch unit and 1 capsule capsule at noon and 1 capsule in the evening. Take with meals. aspirin 325 Yes [id number] 325mg Take 1 [facility] mg tablet 7-25 tablet by ity o f 00:00: mouth [place] 00 daily with Medical breakfast. Branch nicotine 14 Yes [id number] 1{patch Apply 1 [facility] mg/24 hr 7-25 } Patch to ity of patch 00:00: area(s) [place] 00 every 24 Medical (twenty-fo Branch ur) hours. Apply 21mg patch daily x 6 weeks; then apply 14mf patch daily x 2 weeks; then apply 7mg patch daily x 2 weeks. Stop smoking on initiation of therapy nicotine 21 Yes [id number] 1{patch Apply 1 [facility] mg/24 hr 7-25 } Patch to ity of patch 00:00: area(s) in [place] 00 the Medical morning. Branch Apply 21mg patch daily x 6 weeks; then apply 14mg patch daily x 2 weeks; then apply 7mg patch daily x 2 weeks. Stop smoking on initiation of therapy nicotine 7 Yes [id number] 1{patch Apply 1 [facility] mg/24 hr 7-25 } Patch to ity of patch 00:00: area(s) [place] 00 every 24 Medical (twenty-fo Branch ur) hours. Apply 21mg patch daily x 6 weeks; then apply 14mg patch daily x 2 weeks; then apply 7mg patch daily x 2 weeks. Stop smoking on initiation of therapy glipiZIDE Yes [id number] TAKE ONE [facility] 10 mg 7-25 (1) ity of tablet 00:00: TABLET(S) [place] 00 BY MOUTH Medical ONCE A DAY Branch BEFORE MEALS. lipase-prot Yes [id number] 1{capsu Take 1 [facility] ease-amylas 7-25 le} capsule by it y of e 00:00: mouth in [place] 12,000-38,0 00 the [facility] 00 -60,000 morning Branch unit and 1 capsule capsule at noon and 1 capsule in the evening. Take with meals. aspirin 325 Yes [id number] 325mg Take 1 [facility] mg tablet 7-25 tablet by ity o f 00:00: mouth [place] 00 daily with Medical breakfast. Branch nicotine 14 Yes [id number] 1{patch Apply 1 [facility] mg/24 hr 7-25 } Patch to ity of patch 00:00: area(s) [place] 00 every 24 Medical (twenty-fo Branch ur) hours. Apply 21mg patch daily x 6 weeks; then apply 14mf patch daily x 2 weeks; then apply 7mg patch daily x 2 weeks. Stop smoking on initiation of therapy nicotine 21 Yes [id number] 1{patch Apply 1 [facility] mg/24 hr 7-25 } Patch to ity of patch 00:00: area(s) in [place] 00 the Medical morning. Branch Apply 21mg patch daily x 6 weeks; then apply 14mg patch daily x 2 weeks; then apply 7mg patch daily x 2 weeks. Stop smoking on initiation of therapy nicotine 7 Yes [id number] 1{patch Apply 1 [facility] mg/24 hr 7-25 } Patch to ity of patch 00:00: area(s) [place] 00 every 24 Medical (twenty-fo Branch ur) hours. Apply 21mg patch daily x 6 weeks; then apply 14mg patch daily x 2 weeks; then apply 7mg patch daily x 2 weeks. Stop smoking on initiation of therapy glipiZIDE Yes [id number] TAKE ONE [facility] 10 mg 7-25 (1) ity of tablet 00:00: TABLET(S) [place] 00 BY MOUTH Medical ONCE A DAY Branch BEFORE MEALS. lipase-prot Yes [id number] 1{capsu Take 1 [facility] ease-amylas 7-25 le} capsule by it y of e 00:00: mouth in [place] 12,000-38,0 00 the Medical 00 -60,000 morning Branch unit and 1 capsule capsule at noon and 1 capsule in the evening. Take with meals. aspirin 325 Yes [id number] 325mg Take 1 [facility] mg tablet 7-25 tablet by ity o f 00:00: mouth [place] 00 daily with Medical breakfast. Branch nicotine 14 Yes [id number] 1{patch Apply 1 [facility] mg/24 hr 7-25 } Patch to ity of patch 00:00: area(s) [place] 00 every 24 Medical (twenty-fo Branch ur) hours. Apply 21mg patch daily x 6 weeks; then apply 14mf patch daily x 2 weeks; then apply 7mg patch daily x 2 weeks. Stop smoking on initiation of therapy nicotine 21 Yes [id number] 1{patch Apply 1 [facility] mg/24 hr 7-25 } Patch to ity of patch 00:00: area(s) in [place] 00 the Medical morning. Branch Apply 21mg patch daily x 6 weeks; then apply 14mg patch daily x 2 weeks; then apply 7mg patch daily x 2 weeks. Stop smoking on initiation of therapy nicotine 7 Yes [id number] 1{patch Apply 1 [facility] mg/24 hr 7-25 } Patch to ity of patch 00:00: area(s) [place] 00 every 24 Medical (twenty-fo Branch ur) hours. Apply 21mg patch daily x 6 weeks; then apply 14mg patch daily x 2 weeks; then apply 7mg patch daily x 2 weeks. Stop smoking on initiation of therapy glipiZIDE Yes [id number] TAKE ONE [facility] 10 mg 7-25 (1) ity of tablet 00:00: TABLET(S) [place] 00 BY MOUTH Medical ONCE A DAY Branch BEFORE MEALS. lipase-prot Yes [id number] 1{capsu Take 1 [facility] ease-amylas 7-25 le} capsule by it y of e 00:00: mouth in [place] 12,000-38,0 00 the Medical morning Branch unit and 1 capsule capsule at noon and 1 capsule in the evening. Take with meals. aspirin 325 Yes [id number] 325mg Take 1 [facility] mg tablet 7-25 tablet by ity o f 00:00: mouth daily with Medical breakfast. Branch nicotine 14 Yes [id number] 1{patch Apply 1 [facility] mg/24 hr 7-25 } Patch to ity of patch 00:00: area(s) [place] 00 every 24 Medical ([facility] ur) hours. Apply 21mg patch daily x 6 weeks; then apply 14mf patch daily x 2 weeks; then apply 7mg patch daily x 2 weeks. Stop smoking on initiation of therapy nicotine 21 Yes [id number] 1{patch Apply 1 [facility] mg/24 hr 7-25 } Patch to ity of patch 00:00: area(s) in [place] 00 the Medical morning. Branch Apply 21mg patch daily x 6 weeks; then apply 14mg patch daily x 2 weeks; then apply 7mg patch daily x 2 weeks. Stop smoking on initiation of therapy nicotine 7 Yes [id number] 1{patch Apply 1 [facility] mg/24 hr 7-25 } Patch to ity of patch 00:00: area(s) [place] 00 every 24 Medical ([facility] ur) hours. Apply 21mg patch daily x 6 weeks; then apply 14mg patch daily x 2 weeks; then apply 7mg patch daily x 2 weeks. Stop smoking on initiation of therapy glipiZIDE Yes [id number] TAKE ONE [facility] 10 mg 7-25 (1) ity of tablet 00:00: TABLET(S) BY MOUTH Medical ONCE A DAY Branch BEFORE MEALS. lipase-prot Yes [id number] 1{capsu Take 1 [facility] ease-amylas 7-25 le} capsule by it y of e 00:00: mouth in [place] -, 00 the Medical morning Branch unit and 1 capsule capsule at noon and 1 capsule in the evening. Take with meals. aspirin 325 Yes [id number] 325mg Take 1 [facility] mg tablet 7-25 tablet by ity o f 00:00: mouth 00 daily with Medical breakfast. Branch nicotine 14 Yes [id number] 1{patch Apply 1 [facility] mg/24 hr 7-25 } Patch to ity of patch 00:00: area(s) [place] 00 every 24 Medical (twenty-fo Branch ur) hours. Apply 21mg patch daily x 6 weeks; then apply 14mf patch daily x 2 weeks; then apply 7mg patch daily x 2 weeks. Stop smoking on initiation of therapy nicotine 21 Yes [id number] 1{patch Apply 1 [facility] mg/24 hr 7-25 } Patch to ity of patch 00:00: area(s) in [place] 00 the Medical morning. Branch Apply 21mg patch daily x 6 weeks; then apply 14mg patch daily x 2 weeks; then apply 7mg patch daily x 2 weeks. Stop smoking on initiation of therapy nicotine 7 Yes [id number] 1{patch Apply 1 [facility] mg/24 hr 7-25 } Patch to ity of patch 00:00: area(s) [place] 00 every 24 Medical (twenty-fo Branch ur) hours. Apply 21mg patch daily x 6 weeks; then apply 14mg patch daily x 2 weeks; then apply 7mg patch daily x 2 weeks. Stop smoking on initiation of therapy glipiZIDE Yes [id number] TAKE ONE [facility] 10 mg 7-25 (1) ity of tablet 00:00: TABLET(S) [place] 00 BY MOUTH [facility] ONCE A DAY Branch BEFORE MEALS. lipase-prot Yes [id number] 1{capsu Take 1 [facility] ease-amylas 7-25 le} capsule by it y of e 00:00: mouth in [place] 12,000-38,0 00 the [facility] 00 -60,000 morning Branch unit and 1 capsule capsule at noon and 1 capsule in the evening. Take with meals. aspirin 325 Yes [id number] 325mg Take 1 [facility] mg tablet 7-25 tablet by ity o f 00:00: mouth [place] 00 daily with Medical breakfast. Branch nicotine 14 Yes [id number] 1{patch Apply 1 [facility] mg/24 hr 7-25 } Patch to ity of patch 00:00: area(s) [place] 00 every 24 Medical (twenty-fo Branch ur) hours. Apply 21mg patch daily x 6 weeks; then apply 14mf patch daily x 2 weeks; then apply 7mg patch daily x 2 weeks. Stop smoking on initiation of therapy nicotine Yes [id number] 1{patch Apply 1 [facility] mg/24 hr 7-25 } Patch to ity of patch 00:00: area(s) in [place] 00 the Medical morning. Branch Apply 21mg patch daily x 6 weeks; then apply 14mg patch daily x 2 weeks; then apply 7mg patch daily x 2 weeks. Stop smoking on initiation of therapy nicotine 7 Yes [id number] 1{patch Apply 1 [facility] mg/24 hr 7-25 } Patch to ity of patch 00:00: area(s) [place] 00 every 24 Medical (twenty-fo Branch ur) hours. Apply 21mg patch daily x 6 weeks; then apply 14mg patch daily x 2 weeks; then apply 7mg patch daily x 2 weeks. Stop smoking on initiation of therapy glipiZIDE Yes [id number] TAKE ONE [facility] 10 mg 7-25 (1) ity of tablet 00:00: TABLET(S) [place] 00 BY MOUTH Medical ONCE A DAY Branch BEFORE MEALS. lipase-prot Yes [id number] 1{capsu Take 1 [facility] ease-amylas 7-25 le} capsule by it y of e 00:00: mouth in [place] 12,000-38,0 00 the Medical 00 -60,000 morning Branch unit and 1 capsule capsule at noon and 1 capsule in the evening. Take with meals. aspirin 325 Yes [id number] 325mg Take 1 [facility] mg tablet 7-25 tablet by ity o f 00:00: mouth [place] 00 daily with Medical breakfast. Branch nicotine Yes [id number] 1{patch Apply 1 [facility] mg/24 hr 7-25 } Patch to ity of patch 00:00: area(s) [place] 00 every 24 Medical (twenty-fo Branch ur) hours. Apply 21mg patch daily x 6 weeks; then apply 14mf patch daily x 2 weeks; then apply 7mg patch daily x 2 weeks. Stop smoking on initiation of therapy nicotine 21 Yes [id number] 1{patch Apply 1 [facility] mg/24 hr 7-25 } Patch to ity of patch 00:00: area(s) in [place] 00 the Medical morning. Branch Apply 21mg patch daily x 6 weeks; then apply 14mg patch daily x 2 weeks; then apply 7mg patch daily x 2 weeks. Stop smoking on initiation of therapy nicotine 7 Yes [id number] 1{patch Apply 1 [facility] mg/24 hr 7-25 } Patch to ity of patch 00:00: area(s) [place] 00 every 24 Medical ([facility] Branch ur) hours. Apply 21mg patch daily x 6 weeks; then apply 14mg patch daily x 2 weeks; then apply 7mg patch daily x 2 weeks. Stop smoking on initiation of therapy glipiZIDE Yes [id number] TAKE ONE [facility] 10 mg 7-25 (1) ity of tablet 00:00: TABLET(S) [place] 00 BY MOUTH Medical ONCE A DAY Branch BEFORE MEALS. lipase-prot Yes [id number] 1{capsu Take 1 [facility] ease-amylas 7-25 le} capsule by it y of e 00:00: mouth in [place] 12,000-38,0 00 the [facility] 00 -60,000 morning Branch unit and 1 capsule capsule at noon and 1 capsule in the evening. Take with meals. aspirin 325 Yes [id number] 325mg Take 1 [facility] mg tablet 7-25 tablet by ity o f 00:00: mouth [place] 00 daily with Medical breakfast. Branch nicotine 14 Yes [id number] 1{patch Apply 1 [facility] mg/24 hr 7-25 } Patch to ity of patch 00:00: area(s) [place] 00 every 24 Medical ([facility] Branch ur) hours. Apply 21mg patch daily x 6 weeks; then apply 14mf patch daily x 2 weeks; then apply 7mg patch daily x 2 weeks. Stop smoking on initiation of therapy nicotine Yes [id number] 1{patch Apply 1 [facility] mg/24 hr 7-25 } Patch to ity of patch 00:00: area(s) in [place] 00 the Medical morning. Branch Apply 21mg patch daily x 6 weeks; then apply 14mg patch daily x 2 weeks; then apply 7mg patch daily x 2 weeks. Stop smoking on initiation of therapy nicotine 7 Yes [id number] 1{patch Apply 1 [facility] mg/24 hr 7-25 } Patch to ity of patch 00:00: area(s) [place] 00 every 24 Medical (twenty- Branch ur) hours. Apply 21mg patch daily x 6 weeks; then apply 14mg patch daily x 2 weeks; then apply 7mg patch daily x 2 weeks. Stop smoking on initiation of therapy glipiZIDE Yes [id number] TAKE ONE [facility] 10 mg 7-25 (1) ity of tablet 00:00: TABLET(S) [place] 00 BY MOUTH Medical ONCE A DAY Branch BEFORE MEALS. lipase-prot Yes [id number] 1{capsu Take 1 [facility] ease-amylas 7-25 le} capsule by it y of e 00:00: mouth in [place] 12,000-38,0 00 the Medical 00 -60,000 morning Branch unit and 1 capsule capsule at noon and 1 capsule in the evening. Take with meals. aspirin 325 Yes [id number] 325mg Take 1 [facility] mg tablet 7-25 tablet by ity o f 00:00: mouth [place] 00 daily with Medical breakfast. Branch nicotine 14 Yes [id number] 1{patch Apply 1 [facility] mg/24 hr 7-25 } Patch to ity of patch 00:00: area(s) [place] 00 every 24 Medical (twenty-fo Branch ur) hours. Apply 21mg patch daily x 6 weeks; then apply 14mf patch daily x 2 weeks; then apply 7mg patch daily x 2 weeks. Stop smoking on initiation of therapy nicotine 21 Yes [id number] 1{patch Apply 1 [facility] mg/24 hr 7-25 } Patch to ity of patch 00:00: area(s) in [place] 00 the Medical morning. Branch Apply 21mg patch daily x 6 weeks; then apply 14mg patch daily x 2 weeks; then apply 7mg patch daily x 2 weeks. Stop smoking on initiation of therapy nicotine 7 Yes [id number] 1{patch Apply 1 [facility] mg/24 hr 7-25 } Patch to ity of patch 00:00: area(s) [place] 00 every 24 Medical (twenty-fo Branch ur) hours. Apply 21mg patch daily x 6 weeks; then apply 14mg patch daily x 2 weeks; then apply 7mg patch daily x 2 weeks. Stop smoking on initiation of therapy glipiZIDE Yes [id number] TAKE ONE [facility] 10 mg 7-25 (1) ity of tablet 00:00: TABLET(S) [place] 00 BY MOUTH Medical ONCE A DAY Branch BEFORE MEALS. lipase-prot Yes [id number] 1{capsu Take 1 [facility] ease-amylas 7-25 le} capsule by it y of e 00:00: mouth in [place] 12,000-38,0 00 the Medical 00 -60,000 morning Branch unit and 1 capsule capsule at noon and 1 capsule in the evening. Take with meals. aspirin 325 Yes [id number] 325mg Take 1 [facility] mg tablet 7-25 tablet by ity o f 00:00: mouth [place] 00 daily with Medical breakfast. Branch nicotine 14 Yes [id number] 1{patch Apply 1 [facility] mg/24 hr 7-25 } Patch to ity of patch 00:00: area(s) [place] 00 every 24 Medical (twenty-fo Branch ur) hours. Apply 21mg patch daily x 6 weeks; then apply 14mf patch daily x 2 weeks; then apply 7mg patch daily x 2 weeks. Stop smoking on initiation of therapy nicotine 21 Yes [id number] 1{patch Apply 1 [facility] mg/24 hr 7-25 } Patch to ity of patch 00:00: area(s) in [place] 00 the Medical morning. Branch Apply 21mg patch daily x 6 weeks; then apply 14mg patch daily x 2 weeks; then apply 7mg patch daily x 2 weeks. Stop smoking on initiation of therapy nicotine 7 Yes [id number] 1{patch Apply 1 [facility] mg/24 hr 7-25 } Patch to ity of patch 00:00: area(s) [place] 00 every 24 Medical (twenty-fo Branch ur) hours. Apply 21mg patch daily x 6 weeks; then apply 14mg patch daily x 2 weeks; then apply 7mg patch daily x 2 weeks. Stop smoking on initiation of therapy glipiZIDE Yes [id number] TAKE ONE [facility] 10 mg 7-25 (1) ity of tablet 00:00: TABLET(S) [place] 00 BY MOUTH Medical ONCE A DAY Branch BEFORE MEALS. aspirin 325 Yes [id number] 325mg Take 1 [facility] mg tablet 7-25 tablet by ity o f 00:00: mouth [place] 00 daily with Medical breakfast. Branch aspirin 325 Yes [id number] 325mg Take 1 [facility] mg tablet 7-25 tablet by ity o f 00:00: mouth [place] 00 daily with Medical breakfast. Branch aspirin 325 2022-0 Yes [id number] 325mg Take 1 [facility] mg tablet 7-25 tablet by ity o f 00:00: mouth [place] 00 daily with Medical breakfast. Branch aspirin 325 2021-0 Yes [id number] 325mg Take 1 [facility] mg tablet 7-25 tablet by ity o f 00:00: mouth [place] 00 daily with Medical breakfast. Branch aspirin 325 2021-0 Yes [id number] 325mg Take 1 [facility] mg tablet 7-25 tablet by ity o f 00:00: mouth [place] 00 daily with Medical breakfast. Branch aspirin 325 2021-0 Yes [id number] 325mg Take 1 [facility] mg tablet 7-25 tablet by ity o f 00:00: mouth [place] 00 daily with Medical breakfast. Branch aspirin 325 2021-0 Yes [id number] 325mg Take 1 [facility] mg tablet 7-25 tablet by ity o f 00:00: mouth [place] 00 daily with Medical breakfast. Branch aspirin 325 2021-0 Yes [id number] 325mg Take 1 [facility] mg tablet 7-25 tablet by ity o f 00:00: mouth [place] 00 daily with Medical breakfast. Branch aspirin 325 2021-0 Yes [id number] 325mg Take 1 [facility] mg tablet 7-25 tablet by ity o f 00:00: mouth [place] 00 daily with Medical breakfast. Branch aspirin 325 2021-0 Yes [id number] 325mg Take 1 [facility] mg tablet 7-25 tablet by ity o f 00:00: mouth [place] 00 daily with Medical breakfast. Branch aspirin 325 2021-0 Yes [id number] 325mg Take 1 [facility] mg tablet 7-25 tablet by ity o f 00:00: mouth [place] 00 daily with Medical breakfast. Branch aspirin 325 2021-0 Yes [id number] 325mg Take 1 [facility] mg tablet 7-25 tablet by ity o f 00:00: mouth [place] 00 daily with Medical breakfast. Branch aspirin 325 2021-0 Yes [id number] 325mg Take 1 [facility] mg tablet 7-25 tablet by ity o f 00:00: mouth [place] 00 daily with Medical breakfast. Branch aspirin 325 2-0 Yes [id number] 325mg Take 1 [facility] mg tablet 7-25 tablet by ity o f 00:00: mouth [place] 00 daily with Medical breakfast. Branch aspirin 325 2021-0 Yes [id number] 325mg Take 1 [facility] mg tablet 7-25 tablet by ity o f 00:00: mouth [place] 00 daily with Medical breakfast. Branch aspirin 325 Yes [id number] 325mg Take 1 [facility] mg tablet 7-25 tablet by ity o f 00:00: mouth [place] 00 daily with Medical breakfast. Branch aspirin 325 Yes [id number] 325mg Take 1 [facility] mg tablet 7-25 tablet by ity o f 00:00: mouth [place] 00 daily with Medical breakfast. [place] lipase-prot 2022- No [id number] 1{capsu Take 1 [facility] ease-amylas 7-25 07-20 le} capsule by i ty of e 00:00: 00:00 mouth in [place] 12,000-38,0 00 :00 the Medical 00 -60,000 morning Branch unit and 1 capsule capsule at noon and 1 capsule in the evening. Take with meals. nicotine 14 2022- No [id number] 1{patch Apply 1 [facility] mg/24 hr 7-25 07-20 } Patch to ity of patch 00:00: 00:00 area(s) [place] 00 :00 every 24 Medical (twenty-fo [facility]) hours. Apply 21mg patch daily x 6 weeks; then apply 14mf patch daily x 2 weeks; then apply 7mg patch daily x 2 weeks. Stop smoking on initiation of therapy nicotine 21 2022- No [id number] 1{patch Apply 1 [facility] mg/24 hr 7-25 07-20 } Patch to ity of patch 00:00: 00:00 area(s) in [place] 00 :00 the Medical morning. Branch Apply 21mg patch daily x 6 weeks; then apply 14mg patch daily x 2 weeks; then apply 7mg patch daily x 2 weeks. Stop smoking on initiation of therapy nicotine 7 2022- No [id number] 1{patch Apply 1 [facility] mg/24 hr 7-25 07-20 } Patch to ity of patch 00:00: 00:00 area(s) [place] 00 :00 every 24 Medical (twenty-fo [place] ur) hours. Apply 21mg patch daily x 6 weeks; then apply 14mg patch daily x 2 weeks; then apply 7mg patch daily x 2 weeks. Stop smoking on initiation of therapy glipiZIDE 2022- No [id number] TAKE ONE [facility] 10 mg 7-25 07-20 (1) ity of tablet 00:00: 00:00 TABLET(S) [place] 00 :00 BY MOUTH Medical ONCE A DAY Branch BEFORE MEALS. lipase-prot 2022- No [id number] 1{capsu Take 1 [facility] ease-amylas 03-08-20 le} capsule by i ty of e 00:00: 00:00 mouth in [place] 12,000-38,0 00 :00 the [facility] 00 -60,000 morning Branch unit and 1 capsule capsule at noon and 1 capsule in the evening. Take with meals. nicotine 14 2022- No [id number] 1{patch Apply 1 [facility] mg/24 hr 7-08 03-20 } Patch to ity of patch 00:00: 00:00 area(s) [place] 00 :00 every 24 Medical ([facility] Branch ur) hours. Apply 21mg patch daily x 6 weeks; then apply 14mf patch daily x 2 weeks; then apply 7mg patch daily x 2 weeks. Stop smoking on initiation of therapy nicotine 21 2022- No [id number] 1{patch Apply 1 [facility] mg/24 hr 7-08 03-20 } Patch to ity of patch 00:00: 00:00 area(s) in [place] 00 :00 the Medical morning. Branch Apply 21mg patch daily x 6 weeks; then apply 14mg patch daily x 2 weeks; then apply 7mg patch daily x 2 weeks. Stop smoking on initiation of therapy nicotine 7 2022- No [id number] 1{patch Apply 1 [facility] mg/24 hr 7-08 03-20 } Patch to ity of patch 00:00: 00:00 area(s) [place] 00 :00 every 24 Medical ([facility] ur) hours. Apply 21mg patch daily x 6 weeks; then apply 14mg patch daily x 2 weeks; then apply 7mg patch daily x 2 weeks. Stop smoking on initiation of therapy glipiZIDE 2022- No [id number] TAKE ONE [facility] 10 mg -08 03-20 (1) ity of tablet 00:00: 00:00 TABLET(S) [place] 00 :00 BY MOUTH Medical ONCE A DAY Branch BEFORE MEALS. lipase-prot 2022- No [id number] 1{capsu Take 1 [facility] ease-amylas 7-25 07-20 le} capsule by i ty of e 00:00: 00:00 mouth in [place] 12000-38,0 00 :00 the Medical 60 morning Branch unit and 1 capsule capsule at noon and 1 capsule in the evening. Take with meals. nicotine 2022- No [id number] 1{patch Apply 1 [facility] mg/24 hr 7-25 07-20 } Patch to ity of patch 00:00: 00:00 area(s) [place] 00 :00 every 24 Medical (twenty-fo Branch ur) hours. Apply 21mg patch daily x 6 weeks; then apply 14mf patch daily x 2 weeks; then apply 7mg patch daily x 2 weeks. Stop smoking on initiation of therapy nicotine 2022- No [id number] 1{patch Apply 1 [facility] mg/24 hr 7-25 07-20 } Patch to ity of patch 00:00: 00:00 area(s) in [place] 00 :00 the Medical morning. Branch Apply 21mg patch daily x 6 weeks; then apply 14mg patch daily x 2 weeks; then apply 7mg patch daily x 2 weeks. Stop smoking on initiation of therapy nicotine 2022- No [id number] 1{patch Apply 1 [facility] mg/24 hr 7-25 07-20 } Patch to ity of patch 00:00: 00:00 area(s) [place] 00 :00 every 24 Medical (twenty-fo Branch ur) hours. Apply 21mg patch daily x 6 weeks; then apply 14mg patch daily x 2 weeks; then apply 7mg patch daily x 2 weeks. Stop smoking on initiation of therapy glipiZIDE 2022- No [id number] TAKE ONE [facility] 10 mg -08 03-20 (1) ity of tablet 00:00: 00:00 TABLET(S) [place] 00 :00 BY MOUTH Medical ONCE A DAY Branch BEFORE MEALS. lipase-prot 2022- No [id number] 1{capsu Take 1 [facility] ease-amylas -25 07-20 le} capsule by i ty of e 00:00: 00:00 mouth in [place] 12,000-38,0 00 :00 the Medical 60 morning Branch unit and 1 capsule capsule at noon and 1 capsule in the evening. Take with meals. nicotine 14 2022- No [id number] 1{patch Apply 1 [facility] mg/24 hr 7-25 07-20 } Patch to ity of patch 00:00: 00:00 area(s) [place] 00 :00 every 24 Medical ([facility]) hours. Apply 21mg patch daily x 6 weeks; then apply 14mf patch daily x 2 weeks; then apply 7mg patch daily x 2 weeks. Stop smoking on initiation of therapy nicotine 21 2022- No [id number] 1{patch Apply 1 [facility] mg/24 hr 7-25 07-20 } Patch to ity of patch 00:00: 00:00 area(s) in [place] 00 :00 the Medical morning. Branch Apply 21mg patch daily x 6 weeks; then apply 14mg patch daily x 2 weeks; then apply 7mg patch daily x 2 weeks. Stop smoking on initiation of therapy nicotine 7 2022- No [id number] 1{patch Apply 1 [facility] mg/24 hr 7-25 07-20 } Patch to ity of patch 00:00: 00:00 area(s) [place] 00 :00 every 24 Medical ([facility] ur) hours. Apply 21mg patch daily x 6 weeks; then apply 14mg patch daily x 2 weeks; then apply 7mg patch daily x 2 weeks. Stop smoking on initiation of therapy glipiZIDE 2022- No [id number] TAKE ONE [facility] 10 mg 7-25 -20 (1) ity of tablet 00:00: 00:00 TABLET(S) [place] 00 :00 BY MOUTH Medical ONCE A DAY Branch BEFORE MEALS. atorvastati 2022- No [id number] 40mg Take 1 [facility] n 40 mg -25 -06 tablet by ity of tablet 00:00: 00:00 mouth at [place] 00 :00 bedtime. Medical Branch terazosin 5 2022- No [id number] 5mg Take 1 [facility] mg capsule -25 -06 capsule by it y of 00:00: 00:00 mouth [place] 00 :00 every Medical evening. Branch triamterene 2022- No [id number] 1{tbl} Take 1 [facility] -hydrochlor 7-25 -06 tablet by it y of othiazid 00:00: 00:00 mouth [place] 37.5-25 mg 00 :00 the Medical tablet morning. Branch amLODIPine- 2022- No [id number] 1{capsu Take 1 [facility] benazepriL 7-25 04-06 le} capsule by it y of 10-40 mg 00:00: 00:00 mouth [place] per capsule 00 :00 the Medical morning. Branch carvediloL 2022- No [id number] 25mg Take 1 [facility] 25 mg 7-25 04-06 tablet by ity of tablet 00:00: 00:00 mouth in [place] 00 :00 the Medical morning Branch and 1 tablet in the evening. Take with meals. TAKE ONE (1) TABLET(S) BY MOUTH TWICE A DAY WITH FOOD. atorvastati 2022- No [id number] 40mg Take 1 [facility] n 40 mg 7-25 04-06 tablet by ity of tablet 00:00: 00:00 mouth at [place] 00 :00 bedtime. Medical Branch terazosin 5 2022- No [id number] 5mg Take 1 [facility] mg capsule 7-25 04-06 capsule by it y of 00:00: 00:00 mouth [place] 00 :00 every Medical evening. Branch triamterene 2022- No [id number] 1{tbl} Take 1 [facility] -hydrochlor 7-25 04-06 tablet by it y of othiazid 00:00: 00:00 mouth in [place] 37.5-25 mg 00 :00 the Medical tablet morning. Branch amLODIPine- 2022- No [id number] 1{capsu Take 1 [facility] benazepriL 7-25 04-06 le} capsule by it y of 10-40 mg 00:00: 00:00 mouth in [place] per capsule 00 :00 the Medical morning. Branch carvediloL 2022- No [id number] 25mg Take 1 [facility] 25 mg 7-25 04-06 tablet by ity of tablet 00:00: 00:00 mouth in [place] 00 :00 the Medical morning Branch and 1 tablet in the evening. Take with meals. TAKE ONE (1) TABLET(S) BY MOUTH TWICE A DAY WITH FOOD. atorvastati 2022- No [id number] 40mg Take 1 [facility] n 40 mg 7-25 04-06 tablet by ity of tablet 00:00: 00:00 mouth at [place] 00 :00 bedtime. Medical Branch terazosin 5 2022- No [id number] 5mg Take 1 [facility] mg capsule 7-25 04-06 capsule by it y of 00:00: 00:00 mouth [place] 00 :00 every Medical evening. Branch triamterene 2022- No [id number] 1{tbl} Take 1 [facility] -hydrochlor 7-25 04-06 tablet by it y of othiazid 00:00: 00:00 mouth in [place] 37.5-25 mg 00 :00 the Medical tablet morning. Branch amLODIPine- 2022- No [id number] 1{capsu Take 1 [facility] benazepriL 7-25 04-06 le} capsule by it y of 10-40 mg 00:00: 00:00 mouth in [facility] per capsule 00 :00 the Medical morning. Branch carvediloL 2022- No [id number] 25mg Take 1 [facility] 25 mg 7-25 04-06 tablet by ity of tablet 00:00: 00:00 mouth in [place] 00 :00 the Medical morning Branch and 1 tablet in the evening. Take with meals. TAKE ONE (1) TABLET(S) BY MOUTH TWICE A DAY WITH FOOD. atorvastati 2022- No [id number] 40mg Take 1 [facility] n 40 mg 7-25 04-06 tablet by ity of tablet 00:00: 00:00 mouth at [place] 00 :00 bedtime. Medical Branch terazosin 5 2022- No [id number] 5mg Take 1 [facility] mg capsule 7-25 04-06 capsule by it y of 00:00: 00:00 mouth [place] 00 :00 every Medical evening. Branch triamterene 2022- No [id number] 1{tbl} Take 1 [facility] -hydrochlor 7-25 04-06 tablet by it y of othiazid 00:00: 00:00 mouth in [place] 37.5-25 mg 00 :00 the Medical tablet morning. Branch amLODIPine- 2022- No [id number] 1{capsu Take 1 [facility] benazepriL 7-25 04-06 le} capsule by it y of 10-40 mg 00:00: 00:00 mouth [place] per capsule 00 :00 the Medical morning. Branch carvediloL 2022- No [id number] 25mg Take 1 [facility] 25 mg 7-25 -06 tablet by ity of tablet 00:00: 00:00 mouth in [place] 00 :00 the Medical morning Branch and 1 tablet in the evening. Take with meals. TAKE ONE (1) TABLET(S) BY MOUTH TWICE A DAY WITH FOOD. methocarbam 2021- No [id number] 750mg Take 1 [facility] oL - 07-30 tablet by ity of (ROBAXIN-75 00:00: 04:59 mouth in [place] 0) 750 mg 00 :00 the Medical tablet morning Branch and 1 tablet at noon and 1 tablet in the evening. Do all this for 7 days. hydrALAZINE 2021- No [id number] 50mg Take 1 [facility] 50 mg 03-05- tablet by ity of tablet 00:00: 00:00 mouth [place] 00 :00 every 8 Medical (eight) Branch hours. METFORMIN Yes [id number] TAKE ONE Univers 1,000 mg 5-13 (1) ity of tablet 00:00: TABLET(S) 00 BY MOUTH [facility] EVERY Branch TWELVE HOURS WITH MORNING AND EVENING MEALS. METFORMIN Yes [id number] TAKE ONE Univers 1,000 mg 5-13 (1) ity of tablet 00:00: TABLET(S) 00 BY MOUTH [facility] EVERY Branch TWELVE HOURS WITH MORNING AND EVENING MEALS. METFORMIN Yes [id number] TAKE ONE Univers 1,000 mg 5-13 (1) ity of tablet 00:00: TABLET(S) 00 BY MOUTH [facility] EVERY Branch TWELVE HOURS WITH MORNING AND EVENING MEALS. METFORMIN Yes [id number] TAKE ONE Univers 1,000 mg 5-13 (1) ity of tablet 00:00: TABLET(S) [place] 00 BY MOUTH [facility] EVERY Branch TWELVE HOURS WITH MORNING AND EVENING MEALS. METFORMIN Yes [id number] TAKE ONE Univers 1,000 mg 5-13 (1) ity of tablet 00:00: TABLET(S) [place] 00 BY [facility] EVERY [place] TWELVE HOURS WITH MORNING AND EVENING MEALS. METFORMIN 202-0 Yes [id number] TAKE ONE Univers 1,000 mg 5-13 (1) ity of tablet 00:00: TABLET(S) [place] 00 BY MOUTH Medical EVERY Branch TWELVE HOURS WITH MORNING AND EVENING MEALS. METFORMIN 202-0 Yes [id number] TAKE ONE Univers 1,000 mg 5-13 (1) ity of tablet 00:00: TABLET(S) [place] 00 BY MOUTH Medical EVERY Branch TWELVE HOURS WITH MORNING AND EVENING MEALS. METFORMIN 2021-0 Yes [id number] TAKE ONE Univers 1,000 mg 5-13 (1) ity of tablet 00:00: TABLET(S) [place] 00 BY MOUTH Medical EVERY Branch TWELVE HOURS WITH MORNING AND EVENING MEALS. METFORMIN 2021-0 Yes [id number] TAKE ONE Univers 1,000 mg 5-13 (1) ity of tablet 00:00: TABLET(S) [place] 00 BY MOUTH Medical EVERY Branch TWELVE HOURS WITH MORNING AND EVENING MEALS. METFORMIN 2021-0 Yes [id number] TAKE ONE Univers 1,000 mg 5-13 (1) ity of tablet 00:00: TABLET(S) [place] 00 BY MOUTH Medical EVERY Branch TWELVE HOURS WITH MORNING AND EVENING MEALS. METFORMIN 2021-0 Yes [id number] TAKE ONE Univers 1,000 mg 5-13 (1) ity of tablet 00:00: TABLET(S) [place] 00 BY MOUTH Medical EVERY Branch TWELVE HOURS WITH MORNING AND EVENING MEALS. METFORMIN 2021-0 Yes [id number] TAKE ONE Univers 1,000 mg 5-13 (1) ity of tablet 00:00: TABLET(S) [place] 00 BY MOUTH Medical EVERY Branch TWELVE HOURS WITH MORNING AND EVENING MEALS. METFORMIN 2021-0 Yes [id number] TAKE ONE Univers 1,000 mg 5-13 (1) ity of tablet 00:00: TABLET(S) [place] 00 BY MOUTH Medical EVERY Branch TWELVE HOURS WITH MORNING AND EVENING MEALS. METFORMIN 2022-0 Yes [id number] TAKE ONE Univers 1,000 mg 5-13 (1) ity of tablet 00:00: TABLET(S) [place] 00 BY MOUTH Medical EVERY Branch TWELVE HOURS WITH MORNING AND EVENING MEALS. METFORMIN 2022-0 Yes [id number] TAKE ONE Univers 1,000 mg 5-13 (1) ity of tablet 00:00: TABLET(S) [place] 00 BY MOUTH Medical EVERY Branch TWELVE HOURS WITH MORNING AND EVENING MEALS. METFORMIN 2022-0 Yes [id number] TAKE ONE Univers 1,000 mg 5-13 (1) ity of tablet 00:00: TABLET(S) [place] 00 BY MOUTH Medical EVERY Branch TWELVE HOURS WITH MORNING AND EVENING MEALS. METFORMIN 2022- No [id number] TAKE ONE Univers 1,000 mg 5-13 - (1) ity of tablet 00:00: 00:00 TABLET(S) [place] 00 :00 BY MOUTH Medical EVERY Branch TWELVE HOURS WITH MORNING AND EVENING MEALS. METFORMIN 2022- No [id number] TAKE ONE Univers 1,000 mg 5-13 - (1) ity of tablet 00:00: 00:00 TABLET(S) [place] 00 :00 BY MOUTH Medical EVERY Branch TWELVE HOURS WITH MORNING AND EVENING MEALS. METFORMIN 2022- No [id number] TAKE ONE [facility] 1,000 mg 5-13 - (1) ity of tablet 00:00: 00:00 TABLET(S) [place] 00 :00 BY MOUTH Medical EVERY Branch TWELVE HOURS WITH MORNING AND EVENING MEALS. METFORMIN 2022- No [id number] TAKE ONE [facility] 1,000 mg 5-13 - (1) ity of tablet 00:00: 00:00 TABLET(S) [place] 00 :00 BY MOUTH Medical EVERY Branch TWELVE HOURS WITH MORNING AND EVENING MEALS. doxycycline 2021- No [id number] 100mg Take 1 [facility] hyclate 100 1-27 07-25 tablet by it y of mg tablet 00:00: 00:00 mouth 2 [place] 00 :[place] (two) Medical times Branch daily. cloNIDine Yes [id number] .2mg Take 1 U nivers 0.2 mg 1-14 tablet by ity of tablet 00:00: mouth 3 00 (three) Medical times Branch daily as needed (Hypertens ion). Take 1 [facility] TID PRN if BP >150/90 traMADoL 50 Yes [id number] 50mg Take 1 Univ ers mg tablet 1-14 tablet by ity o f 00:00: mouth [place] 00 every 8 Medical (eight) Branch hours as needed for Pain (scale 7-10). Indication s: chronic pain cloNIDine Yes [id number] .2mg Take 1 U nivers 0.2 mg 1-14 tablet by ity of tablet 00:00: mouth 3 (three) Medical times Branch daily as needed (Hypertens ion). Take 1 [facility] TID PRN if BP >150/90 traMADoL 50 2021-0 Yes [id number] 50mg Take 1 Univ ers mg tablet 1-14 tablet by ity o f 00:00: mouth 00 every 8 Medical (eight) Branch hours as needed for Pain (scale 7-10). Indication s: chronic pain cloNIDine 2022-0 Yes [id number] .2mg Take 1 U nivers 0.2 mg 1-14 tablet by ity of tablet 00:00: mouth 3 (three) Medical times Branch daily as needed (Hypertens ion). Take 1 [facility] TID PRN if BP >150/90 traMADoL 50 2021-0 Yes [id number] 50mg Take 1 [facility] ers mg tablet 1-14 tablet by ity o f 00:00: mouth 00 every 8 Medical (eight) Branch hours as needed for Pain (scale 7-10). Indication s: chronic pain cloNIDine 2-0 Yes [id number] .2mg Take 1 U nivers 0.2 mg 1-14 tablet by ity of tablet 00:00: mouth (three) Medical times Branch daily as needed (Hypertens ion). Take 1 [facility] TID PRN if BP >150/90 cloNIDine 2-0 Yes [id number] .2mg Take 1 U nivers 0.2 mg 1-14 tablet by ity of tablet 00:00: mouth (three) Medical times Branch daily as needed (Hypertens ion). Take 1 [facility] TID PRN if BP >150/90 cloNIDine 2-0 Yes [id number] .2mg Take 1 U nivers 0.2 mg 1-14 tablet by ity of tablet 00:00: mouth (three) Medical times Branch daily as needed (Hypertens ion). Take 1 [facility] TID PRN if BP >150/90 cloNIDine 2-0 Yes [id number] .2mg Take 1 U nivers 0.2 mg 1-14 tablet by ity of tablet 00:00: mouth 3 (three) Medical times Branch daily as needed (Hypertens ion). Take 1 [facility]iel TID PRN if BP >150/90 cloNIDine 2-0 Yes [id number] .2mg Take 1 U nivers 0.2 mg 1-14 tablet by ity of tablet 00:00: mouth (three) Medical times Branch daily as needed (Hypertens ion). Take 1 [facility]iel TID PRN if BP >150/90 cloNIDine 2022-0 Yes [id number] .2mg Take 1 U nivers 0.2 mg 1-14 tablet by ity of tablet 00:00: mouth (three) Medical times Branch daily as needed (Hypertens ion). Take 1 [facility] TID PRN if BP >150/90 cloNIDine 2022-0 Yes [id number] .2mg Take 1 U nivers 0.2 mg 1-14 tablet by ity of tablet 00:00: mouth (three) Medical times Branch daily as needed (Hypertens ion). Take 1 [facility]iel TID PRN if BP >150/90 cloNIDine 2022-0 Yes [id number] .2mg Take 1 U nivers 0.2 mg 1-14 tablet by ity of tablet 00:00: mouth (three) Medical times Branch daily as needed (Hypertens ion). Take 1 [facility]iel TID PRN if BP >150/90 cloNIDine 2022-0 Yes [id number] .2mg Take 1 U nivers 0.2 mg 1-14 tablet by ity of tablet 00:00: mouth (three) Medical times Branch daily as needed (Hypertens ion). Take 1 [facility]iel TID PRN if BP >150/90 cloNIDine 2022-0 Yes [id number] .2mg Take 1 U nivers 0.2 mg 1-14 tablet by ity of tablet 00:00: mouth (three) Medical times Branch daily as needed (Hypertens ion). Take 1 [facility]iel TID PRN if BP >150/90 cloNIDine 2022-0 Yes [id number] .2mg Take 1 U nivers 0.2 mg 1-14 tablet by ity of tablet 00:00: mouth (three) Medical times Branch daily as needed (Hypertens ion). Take 1 [facility] TID PRN if BP >150/90 cloNIDine 2022-0 Yes [id number] .2mg Take 1 U nivers 0.2 mg 1-14 tablet by ity of tablet 00:00: mouth (three) Medical times Branch daily as needed (Hypertens ion). Take 1 [facility] TID PRN if BP >150/90 cloNIDine 2021-0 Yes [id number] .2mg Take 1 U nivers 0.2 mg -14 tablet by ity of tablet 00:00: mouth 3 [place] 00 (three) Medical times Branch daily as needed (Hypertens ion). Take 1 [facility] TID PRN if BP >150/90 cloNIDine 2021-0 3- No [id number] .2mg Take 1 [facility] 0.2 mg -26 11-06 tablet by ity of tablet 00:00: 00:00 mouth 3 [place] 00 :00 (three) Medical times Branch daily as needed (Hypertens ion). Take 1 [facility]iel TID PRN if BP >150/90 cloNIDine 2021-0 2022- No [id number] .2mg Take 1 [facility] 0.2 mg -26 11- tablet by ity of tablet 00:00: 00:00 mouth 3 [place] 00 :00 (three) Medical times Branch daily as needed (Hypertens ion). Take 1 [facility]iel TID PRN if BP >150/90 cloNIDine 2021-0 2022- No [id number] .2mg Take 1 [facility] 0.2 mg -26 11- tablet by ity of tablet 00:00: 00:00 mouth 3 [place] 00 :00 (three) Medical times Branch daily as needed (Hypertens ion). Take 1 [facility] TID PRN if BP >150/90 cloNIDine 2021-0 2022- No [id number] .2mg Take 1 [facility] 0.2 mg -26 11- tablet by ity of tablet 00:00: 00:00 mouth 3 [place] 00 :00 (three) Medical times Branch daily as needed (Hypertens ion). Take 1 [facility] TID PRN if BP >150/90 traMADoL 50 2021-0 2021- No [id number] 50mg Take 1 Uni vers mg tablet 08-28-30 tablet by ity of 00:00: 00:00 mouth [place] 00 :00 every 8 Medical (eight) Branch hours as needed for Pain (scale 7-10). Indication s: chronic pain traMADoL 50 2021-0 2021- No [id number] 50mg Take 1 [facility] vers mg tablet 08-28-30 tablet by ity of 00:00: 00:00 mouth [place] 00 :00 every 8 Medical (eight) Branch hours as needed for Pain (scale 7-10). Indication s: chronic pain glipiZIDE 2021- No [id number] TAKE ONE [facility] 10 mg 08-28 (1) ity of tablet 00:00: 00:00 TABLET(S) [place] 00 :00 BY MOUTH Medical ONCE A DAY Branch BEFORE MEALS. atorvastati 2021- No [id number] 40mg Take 1 [facility] n 40 mg 08-28 tablet by ity of tablet 00:00: 00:00 mouth at [place] 00 :00 bedtime. Medical Branch nicotine 2021- No [id number] 1{patch Apply 1 [facility] mg/24 hr 08-28 } Patch to ity of patch 00:00: 00:00 area(s) [place] 00 :00 daily. Medical Apply 21mg Branch patch daily x 6 weeks; then apply 14mg patch daily x 2 weeks; then apply 7mg patch daily x 2 weeks. Stop smoking on initiation of therapy nicotine 2021- No [id number] 1{patch Apply 1 [facility] mg/24 hr 08-28 } Patch to ity of patch 00:00: 00:00 area(s) [place] 00 :00 every 24 Medical (twenty-fo Branch ur) hours. Apply 21mg patch daily x 6 weeks; then apply 14mg patch daily x 2 weeks; then apply 7mg patch daily x 2 weeks. Stop smoking on initiation of therapy nicotine 2021- No [id number] 1{patch Apply 1 [facility] mg/24 hr 08-28 } Patch to ity of patch 00:00: 00:00 area(s) [place] 00 :00 every 24 Medical (twenty-fo Branch ur) hours. Apply 21mg patch daily x 6 weeks; then apply 14mf patch daily x 2 weeks; then apply 7mg patch daily x 2 weeks. Stop smoking on initiation of therapy FLUoxetine 2020-08 Yes [id number] 20mg Take 1 U nivers 20 mg 0-01 capsule by ity of capsule 00:00: mouth [place] 00 daily. Medical Branch traZODone 2020-08 Yes [id number] 50mg Take 1 Uni vers 50 mg 0-01 tablet by ity of tablet 00:00: mouth at [place] 00 bedtime. Medical Branch FLUoxetine 2020-08 Yes [id number] 20mg Take 1 U nivers 20 mg 0-01 capsule by ity of capsule 00:00: mouth [place] 00 daily. Medical Branch traZODone 2020-08 Yes [id number] 50mg Take 1 [facility] vers 50 mg 0-01 tablet by ity of tablet 00:00: mouth at [place] 00 bedtime. Medical Branch FLUoxetine 2020-08 Yes [id number] 20mg Take 1 U nivers 20 mg 0-01 capsule by ity of capsule 00:00: mouth [place] 00 daily. Medical Branch traZODone 2020-08 Yes [id number] 50mg Take 1 [facility] vers 50 mg 0-01 tablet by ity of tablet 00:00: mouth at [place] 00 bedtime. Medical Branch FLUoxetine 2020-08- No [id number] 20mg Take 1 [facility] 20 mg 0-01 11-30 capsule by ity of capsule 00:00: 00:00 mouth [place] 00 :00 daily. Medical Branch traZODone 2020-08- No [id number] 50mg Take 1 Un luis f 50 mg 0-01 11-30 tablet by ity of tablet 00:00: 00:00 mouth at [place] 00 :00 bedtime. Medical Branch FLUoxetine 2020-08- No [id number] 20mg Take 1 [facility] 20 mg 0-01 11-30 capsule by ity of capsule 00:00: 00:00 mouth [place] 00 :00 daily. Medical Branch traZODone 2020-08- No [id number] 50mg Take 1 Un luis f 50 mg 0-01 11-30 tablet by ity of tablet 00:00: 00:00 mouth at [place] 00 :00 bedtime. Medical Branch amLODIPine- 2020-08- No [id number] 1{capsu Take 1 [facility] benazepriL 0-01 07-25 le} capsule by it y of 10-40 mg 00:00: 00:00 mouth [place] per capsule 00 :00 daily. Medica l Branch terazosin 5 2020-08- No [id number] 5mg Take 1 [facility] mg capsule 0-01 07-25 capsule by it y of 00:00: 00:00 mouth [place] 00 :00 every Medical evening. Branch triamterene 2020-08- No [id number] 1{tbl} Take 1 [facility] -hydrochlor 0- 07-25 tablet by it y of othiazid 00:00: 00:00 mouth [place] 37.5-25 mg 00 :00 daily. Medical tablet Branch aspirin 325 2020-08- No [id number] 325mg Take 1 [facility] mg tablet 0-08 21-25 tablet by ity of 00:00: 00:00 mouth [place] 00 :00 daily with Medical breakfast. Branch carvediloL 2020-08- No [id number] 25mg Take 1 [facility] 25 mg 0-08 21-25 tablet by ity of tablet 00:00: 00:00 mouth 2 [place] 00 :00 (two) Medical times Branch daily with meals. TAKE ONE (1) TABLET(S) BY MOUTH TWICE A DAY WITH FOOD. lipase-prot 2020-08- No [id number] 1{capsu Take 1 [facility] ease-amylas 0-08 21-25 le} capsule by i ty of e 00:00: 00:00 mouth 3 [place] 12,000-38,0 00 :00 (three) Medic al 00 -60,000 times [place] unit daily with capsule meals. LORazepam 2 2021- No 2mg Take 1 Uni vers mg tablet 09-02 tablet by ity of 00:00: 00:00 mouth 2 [place] 00 :00 (two) Medical times Branch daily. Take one tablet 30 minutes before MRI, if needed, take 2nd tablet when arriving for MRI. Miscellaneo 2019-08- No [id number] I10 - [facility] [place] [facility] 08-18 Dispense ity of Supply Kit 00:00: 00:00 blood [place] 00 :00 pressure Medical cuff (any Branch brand), take BP at home BID Immunizations Ordered Filled Date Status Comments Source Immunization Name Immunization Name Pneumococcal 2022-11-18 Completed Universit y of Conjugate, PCV20 00:00:00 [place] Me dical (Prevnar 20) Branch SARS-COV-2 COVID-19 2022-11-18 Completed Unive rsity of VACCINE 12 YRS+, 00:00:00 [place] Me dical BIVALENT 0.5ML, IM, Branc h (MODERNA BOOSTER) Pneumococcal 20 2022-11-18 Completed Universit y of Conjugate, PCV20 00:00:00 [place] Me d[facility] (Prevnar 20) Branch SARS-COV-2 COVID-19 2022-11-18 Completed Unive rsity of VACCINE 12 YRS+, 00:00:00 [place] Me dical BIVALENT 0.5ML, IM, Branc h (MODERNA BOOSTER) Pneumococcal 20 2022-11-18 Completed Universit y of Conjugate, PCV20 00:00:00 [place] Me dical (Prevnar 20) Branch SARS-COV-2 COVID-19 2022-11-18 Completed Unive rsity of VACCINE 12 YRS+, 00:00:00 [place] Me dical BIVALENT 0.5ML, IM, Branc h (MODERNA BOOSTER) Pneumococcal 20 2022-11-18 Completed Universit y of Conjugate, PCV20 00:00:00 [place] Me d[facility] (Prevnar 20) Branch SARS-COV-2 COVID-19 2022-11-18 Completed Unive rsity of VACCINE 12 YRS+, 00:00:00 [place] Me dical BIVALENT 0.5ML, IM, Branc h (MODERNA BOOSTER) Pneumococcal 20 2022-11-18 Completed Universit y of Conjugate, PCV20 00:00:00 [place] Me dical (Prevnar 20) Branch SARS-COV-2 COVID-19 2022-11-18 Completed Unive rsity of VACCINE 12 YRS+, 00:00:00 [place] Me dical BIVALENT 0.5ML, IM, Branc h (MODERNA BOOSTER) Pneumococcal 20 2022-11-18 Completed Universit y of Conjugate, PCV20 00:00:00 [place] Me dical (Prevnar 20) Branch SARS-COV-2 COVID-19 2022-11-18 Completed Unive rsity of VACCINE 12 YRS+, 00:00:00 [place] Me dical BIVALENT 0.5ML, IM, Branc h (MODERNA BOOSTER) Pneumococcal 20 2022-11-18 Completed Universit y of Conjugate, PCV20 00:00:00 [place] Me dical (Prevnar 20) Branch SARS-COV-2 COVID-19 2022-11-18 Completed Unive rsity of VACCINE 12 YRS+, 00:00:00 [place] Me dical BIVALENT 0.5ML, IM, Branc h (MODERNA BOOSTER) Pneumococcal 20 2022-11-18 Completed Universit y of Conjugate, PCV20 00:00:00 [place] Me dical (Prevnar 20) Branch SARS-COV-2 COVID-19 2022-11-18 Completed Unive rsity of VACCINE 12 YRS+, 00:00:00 [place] Me dical BIVALENT 0.5ML, IM, Branc h (MODERNA BOOSTER) Pneumococcal 20 2022-11-18 Completed Universit y of Conjugate, PCV20 00:00:00 [place] Me dical (Prevnar 20) Branch SARS-COV-2 COVID-19 2022-11-18 Completed Unive rsity of VACCINE 12 YRS+, 00:00:00 [place] Me dical BIVALENT 0.5ML, IM, Branc h (MODERNA BOOSTER) Pneumococcal 20 2022-11-18 Completed Universit y of Conjugate, PCV20 00:00:00 [place] Me dical (Prevnar 20) Branch SARS-COV-2 COVID-19 2022-11-18 Completed Unive rsity of VACCINE 12 YRS+, 00:00:00 [place] Me dical BIVALENT 0.5ML, IM, Branc h (MODERNA BOOSTER) Pneumococcal 20 2022-11-18 Completed Universit y of Conjugate, PCV20 00:00:00 [place] Me dical (Prevnar 20) Branch SARS-COV-2 COVID-19 2022-11-18 Completed Unive rsity of VACCINE 12 YRS+, 00:00:00 [place] Me dical BIVALENT 0.5ML, IM, Branc h (MODERNA) Pneumococcal 20 2022-11-18 Completed Universit y of Conjugate, PCV20 00:00:00 [place] Me dical (Prevnar 20) Branch SARS-COV-2 COVID-19 2022-11-18 Completed Unive rsity of VACCINE 12 YRS+, 00:00:00 [place] Me dical BIVALENT 0.5ML, IM, Branc h (MODERNA-BLUE TOP) Pneumococcal 20 2022-11-18 Completed Universit y of Conjugate, PCV20 00:00:00 [place] Me dical (Prevnar 20) Branch SARS-COV-2 COVID-19 2022-11-18 Completed Unive rsity of VACCINE 12 YRS+, 00:00:00 [place] Me dical BIVALENT 0.5ML, IM, Branc h (MODERNA-BLUE TOP) Pneumococcal 20 2022-11-18 Completed Universit y of Conjugate, PCV20 00:00:00 [place] Me dical (Prevnar 20) Branch SARS-COV-2 COVID-19 2022-11-18 Completed Unive rsity of VACCINE 12 YRS+, 00:00:00 [place] Me dical BIVALENT 0.5ML, IM, Branc h (MODERNA-BLUE TOP) Pneumococcal 20 2022-11-18 Completed Universit y of Conjugate, PCV20 00:00:00 [place] Me dical (Prevnar 20) Branch SARS-COV-2 COVID-19 2022-11-18 Completed Unive rsity of VACCINE 12 YRS+, 00:00:00 [place] Me dical BIVALENT 0.5ML, IM, Branc h (MODERNA-BLUE TOP) Pneumococcal 20 2022-11-18 Completed Universit y of Conjugate, PCV20 00:00:00 [place] Me dical (Prevnar 20) Branch SARS-COV-2 COVID-19 2022-11-18 Completed Unive rsity of VACCINE 12 YRS+, 00:00:00 [place] Me dical BIVALENT 0.5ML, IM, Branc h (MODERNA-BLUE TOP) Pneumococcal 20 2022-11-18 Completed Universit y of Conjugate, PCV20 00:00:00 [place] Me dical (Prevnar 20) Branch SARS-COV-2 COVID-19 2022-11-18 Completed Unive rsity of VACCINE 12 YRS+, 00:00:00 [place] Me dical BIVALENT 0.5ML, IM, Branc h (MODERNA-BLUE TOP) Pneumococcal 20 2022-11-18 Completed Universit y of Conjugate, PCV20 00:00:00 [place] Me dical (Prevnar 20) Branch SARS-COV-2 COVID-19 2022-11-18 Completed Unive rsity of VACCINE 12 YRS+, 00:00:00 [place] Me dical BIVALENT 0.5ML, IM, Branc h (MODERNA-BLUE TOP) Pneumococcal 20 2022-11-18 Completed Universit y of Conjugate, PCV20 00:00:00 [place] Me dical (Prevnar 20) Branch SARS-COV-2 COVID-19 2022-11-18 Completed Unive rsity of VACCINE 12 YRS+, 00:00:00 [place] Me dical BIVALENT 0.5ML, IM, Branc h (MODERNA-BLUE TOP) Pneumococcal 20 2022-11-18 Completed Universit y of Conjugate, PCV20 00:00:00 [place] Me dical (Prevnar 20) Branch SARS-COV-2 COVID-19 2022-11-18 Completed Unive rsity of VACCINE 12 YRS+, 00:00:00 [place] Me dical BIVALENT 0.5ML, IM, Branc h (MODERNA-BLUE TOP) Pneumococcal 20 2022-11-18 Completed Universit y of Conjugate, PCV20 00:00:00 [place] Me dical (Prevnar 20) Branch SARS-COV-2 COVID-19 2022-11-18 Completed Unive rsity of VACCINE 12 YRS+, 00:00:00 [place] Me dical BIVALENT 0.5ML, IM, Branc h (MODERNA-BLUE TOP) Pneumococcal 20 2022-11-18 Completed Universit y of Conjugate, PCV20 00:00:00 [place] Me dical (Prevnar 20) Branch SARS-COV-2 COVID-19 2022-11-18 Completed Unive rsity of VACCINE 12 YRS+, 00:00:00 [place] Me dical BIVALENT 0.5ML, IM, Branc h (MODERNA-BLUE TOP) Pneumococcal 20 2022-11-18 Completed Universit y of Conjugate, PCV20 00:00:00 [place] Me dical (Prevnar 20) Branch SARS-COV-2 COVID-19 2022-11-18 Completed Unive rsity of VACCINE 12 YRS+, 00:00:00 [place] Me dical BIVALENT 0.5ML, IM, Branc h (MODERNA-BLUE TOP) Pneumococcal 20 2022-11-18 Completed Universit y of Conjugate, PCV20 00:00:00 [place] Me dical (Prevnar 20) Branch SARS-COV-2 COVID-19 2022-11-18 Completed Unive rsity of VACCINE 12 YRS+, 00:00:00 [place] Me dical BIVALENT 0.5ML, IM, Branc h (MODERNA-BLUE TOP) Pneumococcal 20 2022-11-18 Completed Universit y of Conjugate, PCV20 00:00:00 [place] Me dical (Prevnar 20) Branch SARS-COV-2 COVID-19 2022-11-18 Completed Unive rsity of VACCINE 12 YRS+, 00:00:00 [place] Me dical BIVALENT 0.5ML, IM, Branc h (MODERNA-BLUE TOP) Pneumococcal 20 2022-11-18 Completed Universit y of Conjugate, PCV20 00:00:00 [place] Me dical (Prevnar 20) Branch SARS-COV-2 COVID-19 2022-11-18 Completed Unive rsity of VACCINE 12 YRS+, 00:00:00 [place] Me dical BIVALENT 0.5ML, IM, Branc h (MODERNA-BLUE TOP) Pneumococcal 20 2022-11-18 Completed Universit y of Conjugate, PCV20 00:00:00 [place] Me dical (Prevnar 20) Branch SARS-COV-2 COVID-19 2022-11-18 Completed Unive rsity of VACCINE 12 YRS+, 00:00:00 [place] Me dical BIVALENT 0.5ML, IM, Branc h (MODERNA-BLUE TOP) Pneumococcal 20 2022-11-18 Completed Universit y of Conjugate, PCV20 00:00:00 [place] Me dical (Prevnar 20) Branch SARS-COV-2 COVID-19 2022-11-18 Completed Unive rsity of VACCINE 12 YRS+, 00:00:00 [place] Me dical BIVALENT 0.5ML, IM, Branc h (MODERNA-BLUE TOP) Pneumococcal 20 2022-11-18 Completed Universit y of Conjugate, PCV20 00:00:00 [place] Me dical (Prevnar 20) Branch SARS-COV-2 COVID-19 2022-11-18 Completed Unive rsity of VACCINE 12 YRS+, 00:00:00 [place] Me dical BIVALENT 0.5ML, IM, Branc h (MODERNA-BLUE TOP) Pneumococcal 20 2022-11-18 Completed Universit y of Conjugate, PCV20 00:00:00 [place] Me dical (Prevnar 20) Branch SARS-COV-2 COVID-19 2022-11-18 Completed Unive rsity of VACCINE 12 YRS+, 00:00:00 [place] Me dical BIVALENT 0.5ML, IM, Branc h (MODERNA-BLUE TOP) Pneumococcal 20 2022-11-18 Completed Universit y of Conjugate, PCV20 00:00:00 [place] Me dical (Prevnar 20) Branch SARS-COV-2 COVID-19 2022-11-18 Completed Unive rsity of VACCINE 12 YRS+, 00:00:00 [place] Me dical BIVALENT 0.5ML, IM, Branc h (MODERNA-BLUE TOP) Pneumococcal 20 2022-11-18 Completed Universit y of Conjugate, PCV20 00:00:00 [place] Me dical (Prevnar 20) Branch SARS-COV-2 COVID-19 2022-11-18 Completed Unive rsity of VACCINE 12 YRS+, 00:00:00 [place] Me dical BIVALENT 0.5ML, IM, Branc h (MODERNA-BLUE TOP) Pneumococcal 20 2022-11-18 Completed Universit y of Conjugate, PCV20 00:00:00 [place] Me dical (Prevnar 20) Branch SARS-COV-2 COVID-19 2022-11-18 Completed Unive rsity of VACCINE 12 YRS+, 00:00:00 [place] Me dical BIVALENT 0.5ML, IM, Branc h (MODERNA-BLUE TOP) Pneumococcal 20 2022-11-18 Completed Universit y of Conjugate, PCV20 00:00:00 [place] Me dical (Prevnar 20) Branch SARS-COV-2 COVID-19 2022-11-18 Completed Unive rsity of VACCINE 12 YRS+, 00:00:00 [place] Me dical BIVALENT 0.5ML, IM, Branc h (MODERNA-BLUE TOP) Influenza Virus 2022-08-04 Completed Universit y of Vaccine,quad 00:00:00 [place] [facility] Im,[facility] Branch 65+ Influenza Virus 2022-08-04 Completed Universit y of Vaccine,quad 00:00:00 [place] [facility] Im,[facility] Branch 65+ Influenza Virus 2022-08-04 Completed Universit y of Vaccine,quad 00:00:00 [place] [facility] Im,preserve Free Branch 65+ Influenza Virus 2022-08-04 Completed Universit y of Vaccine,quad 00:00:00 [place] [facility]ica [facility] Im,preserve Free Branch 65+ Influenza Virus 2022-08-04 Completed Universit y of Vaccine,quad 00:00:00 [place] [facility]ica l Im,preserve Free Branch 65+ Influenza Virus 2022-08-04 Completed Universit y of Vaccine,quad 00:00:00 [place] [facility]ica l Im,preserve Free Branch 65+ Influenza Virus 2022-08-04 Completed Universit y of Vaccine,quad 00:00:00 [place] [facility] Im,[facility] Branch 65+ Influenza Virus 2022-08-04 Completed Universit y of Vaccine,quad 00:00:00 [place] [facility] l Im,preserve Free Branch 65+ Influenza Virus 2022-08-04 Completed Universit y of Vaccine,quad 00:00:00 [place] [facility] Im,preserve Free Branch 65+ Influenza Virus 2022-08-04 Completed Universit y of Vaccine,quad 00:00:00 [place] [facility] Im,preserve Free Branch 65+ Influenza Virus 2022-08-04 Completed Universit y of Vaccine,quad 00:00:00 [place] [facility] Im,preserve Free Branch 65+ Influenza Virus 2022-08-04 Completed Universit y of Vaccine,quad 00:00:00 [place] [facility] Im,preserve Free Branch 65+ Influenza Virus 2022-08-04 Completed Universit y of Vaccine,quad 00:00:00 [place] [facility] Im,preserve Free Branch 65+ Influenza Virus 2022-08-04 Completed Universit y of Vaccine,quad 00:00:00 [place] [facility] Im,preserve Free Branch 65+ Influenza Virus 2022-08-04 Completed Universit y of Vaccine,quad 00:00:00 [place] [facility] Im,preserve Free Branch 65+ Influenza Virus 2022-08-04 Completed Universit y of Vaccine,quad 00:00:00 [place] [facility]ica [facility] Im,preserve Free Branch 65+ Influenza Virus 2022-08-04 Completed Universit y of Vaccine,quad 00:00:00 [place] [facility] Im,preserve Free Branch 65+ Influenza Virus 2022-08-04 Completed Universit y of Vaccine,quad 00:00:00 [place] [facility] Im,preserve Free Branch 65+ Influenza Virus 2022-08-04 Completed Universit y of Vaccine,quad 00:00:00 [place] [facility] Im,preserve Free Branch 65+ Influenza Virus 2022-08-04 Completed Universit y of Vaccine,quad 00:00:00 [place] [facility] Im,preserve Free Branch 65+ Influenza Virus 2022-08-04 Completed Universit y of Vaccine,quad 00:00:00 [place] [facility] Im,preserve Free Branch 65+ Influenza Virus 2022-08-04 Completed Universit y of Vaccine,quad 00:00:00 [place] [facility] Im,preserve Free Branch 65+ Influenza Virus 2022-08-04 Completed Universit y of Vaccine,quad 00:00:00 [place] [facility] Im,preserve Free Branch 65+ Influenza Virus 2022-08-04 Completed Universit y of Vaccine,quad 00:00:00 [place] [facility] Im,preserve Free Branch 65+ Influenza Virus 2022-08-04 Completed Universit y of Vaccine,quad 00:00:00 [place] [facility],preserve Free Branch 65+ Influenza Virus 2022-08-04 Completed Universit y of Vaccine,quad 00:00:00 [place] [facility] Im,preserve Free Branch 65+ Influenza Virus 2022-08-04 Completed Universit y of Vaccine,quad 00:00:00 [place] [facility],preserve Free Branch 65+ Influenza Virus 2022-08-04 Completed Universit y of Vaccine,quad 00:00:00 [place] [facility] Im,preserve Free Branch 65+ Influenza Virus 2022-08-04 Completed Universit y of Vaccine,quad 00:00:00 [place] [facility] Im,preserve Free Branch 65+ Influenza Virus 2022-08-04 Completed Universit y of Vaccine,quad 00:00:00 [place] [facility] Im,preserve Free Branch 65+ Influenza Virus 2022-08-04 Completed Universit y of Vaccine,quad 00:00:00 [place] [facility] Im,preserve Free Branch 65+ Influenza Virus 2022-08-04 Completed Universit y of Vaccine,quad 00:00:00 [place] [facility],preserve Free Branch 65+ Influenza Virus 2022-08-04 Completed Universit y of Vaccine,quad 00:00:00 [place] [facility] Im,preserve Free Branch 65+ Influenza Virus 2022-08-04 Completed Universit y of Vaccine,quad 00:00:00 [place] [facility],preserve Free Branch 65+ Influenza Virus 2022-08-04 Completed Universit y of Vaccine,quad 00:00:00 [place] [facility],preserve Free Branch 65+ Influenza Virus 2022-08-04 Completed Universit y of Vaccine,quad 00:00:00 [place] [facility],preserve Free Branch 65+ Influenza Virus 2022-08-04 Completed Universit y of Vaccine,quad 00:00:00 [place] [facility],preserve Free Branch 65+ Influenza Virus 2022-08-04 Completed Universit y of Vaccine,quad 00:00:00 [place] [facility] Im,preserve Free Branch 65+ Influenza Virus 2022-08-04 Completed Universit y of Vaccine,quad 00:00:00 [place] [facility] Free Branch 65+ Influenza Virus 2022-08-04 Completed Universit y of Vaccine,quad 00:00:00 [place] [facility] 65+ SARS-COV-2 COVID-19 2021-08-21 Completed [facility] of VACCINE - (MODERNA) 00:00:00 [facility] SARS-COV-2 COVID-19 2021-08-21 Completed [facility] of VACCINE - (MODERNA) 00:00:00 [facility] SARS-COV-2 COVID-19 2021-08-21 Completed [facility] of VACCINE - (MODERNA) 00:00:00 [facility] SARS-COV-2 COVID-19 2021-08-21 Completed [facility] VACCINE - (MODERNA) 00[facility]00 [facility] [facility] SARS-COV-2 COVID-19 2021-08-21 Completed Unive rsity of VACCINE - (MODERNA) 00:00:00 [facility] SARS-COV-2 COVID-19 2021-08-21 Completed [facility] of VACCINE - (MODERNA) 00:00:00 [facility] SARS-COV-2 COVID-19 2021-08-21 Completed [facility] of VACCINE - (MODERNA) 00:00:00 [facility] SARS-COV-2 COVID-19 2021-08-21 Completed [facility] of VACCINE - (MODERNA) 00:00:00 [facility] SARS-COV-2 COVID-19 2021-08-21 Completed [facility] of VACCINE - (MODERNA) 00:00:00 [facility] SARS-COV-2 COVID-19 2021-08-21 Completed [facility] of VACCINE - (MODERNA) 00:00:00 [facility] SARS-COV-2 COVID-19 2021-08-21 Completed [facility] of VACCINE - (MODERNA) 00:00:00 [facility] SARS-COV-2 COVID-19 2021-08-21 Completed [facility] of VACCINE - (MODERNA) 00:00:00 [facility] SARS-COV-2 COVID-19 2021-08-21 Completed [facility] of VACCINE - (MODERNA) 00:00:00 [facility] SARS-COV-2 COVID-19 2021-08-21 Completed [facility] of VACCINE - (MODERNA) 00:00:00 [facility] SARS-COV-2 COVID-19 2021-08-21 Completed [facility] of VACCINE - (MODERNA) 00:00:00 [facility] SARS-COV-2 COVID-19 2021-08-21 Completed [facility] of VACCINE - (MODERNA) 00:00:00 [facility] SARS-COV-2 COVID-19 2021-08-21 Completed [facility]ive rsity of VACCINE - (MODERNA) 00:00:00 [facility] SARS-COV-2 COVID-19 2021-08-21 Completed [facility] of VACCINE - (MODERNA) 00:00:00 [facility] SARS-COV-2 COVID-19 2021-08-21 Completed [facility] of VACCINE - (MODERNA) 00:00:00 [facility] SARS-COV-2 COVID-19 2021-08-21 Completed [facility] of VACCINE - (MODERNA) 00:00:00 [facility] SARS-COV-2 COVID-19 2021-08-21 Completed [facility] of VACCINE - (MODERNA) 00:00:00 [facility] SARS-COV-2 COVID-19 2021-08-21 Completed [facility] of VACCINE - (MODERNA) 00:00:00 [facility] SARS-COV-2 COVID-19 2021-08-21 Completed [facility] of VACCINE - (MODERNA) 00:00:00 [facility] SARS-COV-2 COVID-19 2021-08-21 Completed [facility] of VACCINE - (MODERNA) 00:00:00 [facility] SARS-COV-2 COVID-19 2021-08-21 Completed [facility] of VACCINE - (MODERNA) 00:00:00 [facility] SARS-COV-2 COVID-19 2021-08-21 Completed [facility] of VACCINE - (MODERNA) 00:00:00 [facility] SARS-COV-2 COVID-19 2021-08-21 Completed [facility] of VACCINE - (MODERNA) 00:00:00 [facility] SARS-COV-2 COVID-19 2021-08-21 Completed [facility] of VACCINE - (MODERNA) 00:00:00 [facility] SARS-COV-2 COVID-19 2021-08-21 Completed [facility] of VACCINE - (MODERNA) 00:00:00 [facility] SARS-COV-2 COVID-19 2021-08-21 Completed [facility] of VACCINE - (MODERNA) 00:00:00 [facility] SARS-COV-2 COVID-19 2021-08-21 Completed [facility] of VACCINE - (MODERNA) 00:00:00 [facility] SARS-COV-2 COVID-19 2021-08-21 Completed [facility] of VACCINE - (MODERNA) 00:00:00 [facility] SARS-COV-2 COVID-19 2021-08-21 Completed [facility] of VACCINE - (MODERNA) 00:00:00 [facility] SARS-COV-2 COVID-19 2021-08-21 Completed [facility] of VACCINE - (MODERNA) 00:00:00 [facility] SARS-COV-2 COVID-19 2020-12-17 Completed [facility]ive rsity of MODERNA VACCINE 00:00:00 [facility] ical Branch SARS-COV-2 COVID-19 2020-12-17 Completed Unive rsity of MODERNA 12+ YRS 00:00:00 [place] [facility] VACCINE [facility] SARS-COV-2 COVID-19 2020-12-17 Completed Unive rsity of MODERNA 12+ YRS 00:00:00 [place] [facility] VACCINE [facility] SARS-COV-2 COVID-19 2020-12-17 Completed [facility]ive rsity of MODERNA 12+ YRS 00:00:00 [place] [facility] VACCINE [facility] SARS-COV-2 COVID-19 2020-12-17 Completed [facility]ive rsity of MODERNA 12+ YRS 00:00:00 [place] [facility] VACCINE [facility] SARS-COV-2 COVID-19 2020-12-17 Completed [facility]ive rsity of MODERNA 12+ YRS 00:00:00 [place] [facility] VACCINE [facility] SARS-COV-2 COVID-19 2020-12-17 Completed [facility] of MODERNA 12+ YRS 00:00:00 [place] [facility] VACCINE [facility] SARS-COV-2 COVID-19 2020-12-17 Completed [facility]ive [facility] of MODERNA 12+ YRS 00:00:00 [place] [facility] VACCINE [facility] SARS-COV-2 COVID-19 2020-12-17 Completed [facility]ive [facility]ity of MODERNA 12+ YRS 00:00:00 [place] [facility] VACCINE [facility] SARS-COV-2 COVID-19 2020-12-17 Completed [facility]ive [facility] of MODERNA 12+ YRS 00:00:00 [place] [facility] VACCINE [facility] SARS-COV-2 COVID-19 2020-12-17 Completed [facility] of MODERNA 12+ YRS 00:00:00 [place] [facility] VACCINE [facility] SARS-COV-2 COVID-19 2020-12-17 Completed [facility] of MODERNA 12+ YRS 00:00:00 [place] [facility] VACCINE [facility] SARS-COV-2 COVID-19 2020-12-17 Completed [facility]ive [facility] of MODERNA 12+ YRS 00:00:00 [place] [facility] VACCINE [facility] SARS-COV-2 COVID-19 2020-12-17 Completed [facility] of MODERNA 12+ YRS 00:00:00 [place] [facility] VACCINE [facility] SARS-COV-2 COVID-19 2020-12-17 Completed [facility] of MODERNA 12+ YRS 00:00:00 [place] [facility] VACCINE [facility] SARS-COV-2 COVID-19 2020-12-17 Completed [facility] of MODERNA 12+ YRS 00:00:00 [place] [facility] VACCINE [facility] SARS-COV-2 COVID-19 2020-12-17 Completed [facility] of MODERNA 12+ YRS 00:00:00 [place] [facility] VACCINE [facility] SARS-COV-2 COVID-19 2020-12-17 Completed [facility] of MODERNA 12+ YRS 00:00:00 [place] [facility] VACCINE [facility] SARS-COV-2 COVID-19 2020-12-17 Completed [facility] of MODERNA 12+ YRS 00:00:00 [place] [facility] VACCINE [facility] SARS-COV-2 COVID-19 2020-12-17 Completed [facility] of MODERNA 12+ YRS 00:00:00 [place] [facility] VACCINE [facility] SARS-COV-2 COVID-19 2020-12-17 Completed [facility] of MODERNA 12+ YRS 00:00:00 [place] [facility] VACCINE [facility] SARS-COV-2 COVID-19 2020-12-17 Completed [facility]ive [facility] of MODERNA 12+ YRS 00:00:00 [place] [facility] VACCINE [facility] SARS-COV-2 COVID-19 2020-12-17 Completed [facility] of MODERNA 12+ YRS 00:00:00 [place] [facility] VACCINE [facility] SARS-COV-2 COVID-19 2020-12-17 Completed [facility]ive rs[facility] of MODERNA 12+ YRS 00:00:00 [place] [facility] VACCINE [facility] SARS-COV-2 COVID-19 2020-12-17 Completed [facility] of MODERNA 12+ YRS 00:00:00 [place] [facility] VACCINE [facility] SARS-COV-2 COVID-19 2020-12-17 Completed [facility]ive [facility] of MODERNA 12+ YRS 00:00:00 [place] [facility] VACCINE [facility] SARS-COV-2 COVID-19 2020-12-17 Completed [facility]ive [facility] of MODERNA 12+ YRS 00:00:00 [place] [facility] VACCINE [facility] SARS-COV-2 COVID-19 2020-12-17 Completed [facility]ive [facility] of MODERNA 12+ YRS 00:00:00 [place] [facility] VACCINE [facility] SARS-COV-2 COVID-19 2020-12-17 Completed [facility] of MODERNA 12+ YRS 00:00:00 [place] [facility] VACCINE [facility] SARS-COV-2 COVID-19 2020-12-17 Completed [facility] of MODERNA 12+ YRS 00:00:00 [place] [facility] VACCINE [facility] SARS-COV-2 COVID-19 2020-12-17 Completed [facility] of MODERNA 12+ YRS 00:00:00 [place] [facility] VACCINE [facility] SARS-COV-2 COVID-19 2020-12-17 Completed [facility] of MODERNA 12+ YRS 00:00:00 [place] [facility] VACCINE [facility] SARS-COV-2 COVID-19 2020-12-17 Completed [facility] of MODERNA 12+ YRS 00:00:00 [place] [facility] VACCINE [facility] SARS-COV-2 COVID-19 2020-12-17 Completed [facility] of MODERNA 12+ YRS 00:00:00 [place] [facility] VACCINE [facility] SARS-COV-2 COVID-19 2020-12-17 Completed [facility] of MODERNA 12+ YRS 00:00:00 [place] [facility] VACCINE [facility] SARS-COV-2 COVID-19 2020-12-17 Completed [facility] of MODERNA 12+ YRS 00:00:00 [place] [facility] VACCINE [facility] SARS-COV-2 COVID-19 2020-12-17 Completed [facility] of MODERNA 12+ YRS 00:00:00 [place] [facility] VACCINE [facility] SARS-COV-2 COVID-19 2020-12-17 Completed [facility] of MODERNA 12+ YRS 00:00:00 [place] [facility] VACCINE [facility] SARS-COV-2 COVID-19 2020-12-17 Completed [facility] of MODERNA 12+ YRS 00:00:00 [place] [facility] VACCINE [facility] SARS-COV-2 COVID-19 2020-12-17 Completed [facility] of MODERNA 12+ YRS 00:00:00 [place] [facility] VACCINE [facility] SARS-COV-2 COVID-19 2020-12-17 Completed [facility] of MODERNA 12+ YRS 00:00:00 [place] [facility] VACCINE [facility] SARS-COV-2 COVID-19 2020-12-17 Completed [facility] of MODERNA 12+ YRS 00:00:00 [place] [facility] VACCINE [facility] SARS-COV-2 COVID-19 2020-12-17 Completed [facility] of MODERNA 12+ YRS 00:00:00 [place] [facility] VACCINE [facility] SARS-COV-2 COVID-19 2020-12-17 Completed [facility] of MODERNA 12+ YRS 00:00:00 [place] [facility] VACCINE [facility] SARS-COV-2 COVID-19 2020-12-17 Completed [facility] of MODERNA 12+ YRS 00:00:00 [place] [facility] VACCINE [facility] SARS-COV-2 COVID-19 2020-12-17 Completed [facility] of MODERNA 12+ YRS 00:00:00 [place] [facility] VACCINE [facility] SARS-COV-2 COVID-19 2020-12-17 Completed [facility] of MODERNA 12+ YRS 00:00:00 [place] [facility] VACCINE [facility] SARS-COV-2 COVID-19 2020-12-17 Completed [facility] of MODERNA 12+ YRS 00:00:00 [place] [facility] VACCINE [facility] SARS-COV-2 COVID-19 2020-12-17 Completed [facility] of MODERNA 12+ YRS 00:00:00 [place] [facility] VACCINE [facility] SARS-COV-2 COVID-19 2020-12-17 Completed [facility] rsity of MODERNA 12+ YRS 00:00:00 [place] [facility] VACCINE [facility] SARS-COV-2 COVID-19 2020-11-19 Completed [facility] of MODERNA VACCINE 00:00:00 [place] [facility] SARS-COV-2 COVID-19 2020-11-19 Completed [facility]ive rsity of MODERNA 12+ YRS 00:00:00 [place] [facility] VACCINE [facility] SARS-COV-2 COVID-19 2020-11-19 Completed Unive rsity of MODERNA 12+ YRS 00:00:00 [place] [facility] VACCINE [facility] SARS-COV-2 COVID-19 2020-11-19 Completed [facility]ive [facility]ity of MODERNA 12+ YRS 00:00:00 [place] [facility] VACCINE [facility] SARS-COV-2 COVID-19 2020-11-19 Completed Un[facility] rsity of MODERNA 12+ YRS 00:00:00 [place] [facility] VACCINE [facility] SARS-COV-2 COVID-19 2020-11-19 Completed [facility] of MODERNA 12+ YRS 00:00:00 [place] [facility] VACCINE [facility] SARS-COV-2 COVID-19 2020-11-19 Completed [facility] of MODERNA 12+ YRS 00:00:00 [place] [facility] VACCINE [facility] SARS-COV-2 COVID-19 2020-11-19 Completed [facility]ive [facility] of MODERNA 12+ YRS 00:00:00 [place] [facility] VACCINE [facility] SARS-COV-2 COVID-19 2020-11-19 Completed [facility]ity of MODERNA 12+ YRS 00:00:00 [place] [facility] VACCINE [facility] SARS-COV-2 COVID-19 2020-11-19 Completed [facility] of MODERNA 12+ YRS 00:00:00 [place] [facility] VACCINE [facility] SARS-COV-2 COVID-19 2020-11-19 Completed [facility] of MODERNA 12+ YRS 00:00:00 [place] [facility] VACCINE [facility] SARS-COV-2 COVID-19 2020-11-19 Completed Unive rsity of MODERNA 12+ YRS 00:00:00 [place] [facility] VACCINE [facility] SARS-COV-2 COVID-19 2020-11-19 Completed [facility]ive [facility]ity of MODERNA 12+ YRS 00:00:00 [place] [facility] VACCINE [facility] SARS-COV-2 COVID-19 2020-11-19 Completed Unive rsity of MODERNA 12+ YRS 00:00:00 [place] [facility] VACCINE [facility] SARS-COV-2 COVID-19 2020-11-19 Completed Unive rsity of MODERNA 12+ YRS 00:00:00 [place] [facility] VACCINE [facility] SARS-COV-2 COVID-19 2020-11-19 Completed Unive rsity of MODERNA 12+ YRS 00:00:00 [place] [facility] VACCINE [facility] SARS-COV-2 COVID-19 2020-11-19 Completed Unive rsity of MODERNA 12+ YRS 00:00:00 [place] [facility] VACCINE [facility] SARS-COV-2 COVID-19 2020-11-19 Completed Unive rsity of MODERNA 12+ YRS 00:00:00 [place] [facility] VACCINE [facility] SARS-COV-2 COVID-19 2020-11-19 Completed [facility]ive [facility]ity of MODERNA 12+ YRS 00:00:00 [place] [facility] VACCINE [facility] SARS-COV-2 COVID-19 2020-11-19 Completed [facility]ive [facility]ity of MODERNA 12+ YRS 00:00:00 [place] [facility] VACCINE [facility] SARS-COV-2 COVID-19 2020-11-19 Completed [facility]ive rsity of MODERNA 12+ YRS 00:00:00 [place] [facility] VACCINE [facility] SARS-COV-2 COVID-19 2020-11-19 Completed Unive rsity of MODERNA 12+ YRS 00:00:00 [place] [facility] VACCINE [facility] SARS-COV-2 COVID-19 2020-11-19 Completed [facility]ive [facility]ity of MODERNA 12+ YRS 00:00:00 [place] [facility] VACCINE [facility] SARS-COV-2 COVID-19 2020-11-19 Completed Unive rsity of MODERNA 12+ YRS 00:00:00 [place] [facility] VACCINE [facility] SARS-COV-2 COVID-19 2020-11-19 Completed [facility]ive rsity of MODERNA 12+ YRS 00:00:00 [place] [facility] VACCINE [facility] SARS-COV-2 COVID-19 2020-11-19 Completed [facility]ive rsity of MODERNA 12+ YRS 00:00:00 [place] [facility] VACCINE [facility] SARS-COV-2 COVID-19 2020-11-19 Completed Unive rsity of MODERNA 12+ YRS 00:00:00 [place] [facility] VACCINE [facility] SARS-COV-2 COVID-19 2020-11-19 Completed [facility]ive rsity of MODERNA 12+ YRS 00:00:00 [place] [facility] VACCINE [facility] SARS-COV-2 COVID-19 2020-11-19 Completed Unive rsity of MODERNA 12+ YRS 00:00:00 [place] [facility] VACCINE [facility] SARS-COV-2 COVID-19 2020-11-19 Completed Unive rsity of MODERNA 12+ YRS 00:00:00 [place] [facility] VACCINE [facility] SARS-COV-2 COVID-19 2020-11-19 Completed Unive rsity of MODERNA 12+ YRS 00:00:00 [place] [facility] VACCINE [facility] SARS-COV-2 COVID-19 2020-11-19 Completed [facility]ive rsity of MODERNA 12+ YRS 00:00:00 [place] [facility] VACCINE [facility] SARS-COV-2 COVID-19 2020-11-19 Completed Unive rsity of MODERNA 12+ YRS 00:00:00 [place] [facility] VACCINE [facility] SARS-COV-2 COVID-19 2020-11-19 Completed Unive rsity of MODERNA 12+ YRS 00:00:00 [place] [facility] VACCINE [facility] SARS-COV-2 COVID-19 2020-11-19 Completed Unive rsity of MODERNA 12+ YRS 00:00:00 [place] [facility] VACCINE [facility] SARS-COV-2 COVID-19 2020-11-19 Completed Unive rsity of MODERNA 12+ YRS 00:00:00 [place] [facility] VACCINE [facility] SARS-COV-2 COVID-19 2020-11-19 Completed Unive rsity of MODERNA 12+ YRS 00:00:00 [place] [facility] VACCINE [facility] SARS-COV-2 COVID-19 2020-11-19 Completed Unive rsity of MODERNA 12+ YRS 00:00:00 [place] [facility] VACCINE [facility] SARS-COV-2 COVID-19 2020-11-19 Completed Unive rsity of MODERNA 12+ YRS 00:00:00 [place] [facility] VACCINE [facility] SARS-COV-2 COVID-19 2020-11-19 Completed Unive rsity of MODERNA 12+ YRS 00:00:00 [place] [facility] VACCINE [facility] SARS-COV-2 COVID-19 2020-11-19 Completed [facility]ive rsity of MODERNA 12+ YRS 00:00:00 [place] [facility] VACCINE [facility] SARS-COV-2 COVID-19 2020-11-19 Completed Unive rsity of MODERNA 12+ YRS 00:00:00 [place] [facility] VACCINE Branch SARS-COV-2 COVID-19 2020-11-19 Completed [facility]ive rsity of MODERNA 12+ YRS 00:00:00 [place] [facility] VACCINE Branch SARS-COV-2 COVID-19 2020-11-19 Completed [facility]ive rsity of MODERNA 12+ YRS 00:00:00 [place] [facility] VACCINE [facility] SARS-COV-2 COVID-19 2020-11-19 Completed [facility]ive rsity of MODERNA 12+ YRS 00:00:00 [place] [facility] VACCINE [facility] SARS-COV-2 COVID-19 2020-11-19 Completed [facility]ive rsity of MODERNA 12+ YRS 00:00:00 [place] [facility] VACCINE [facility] SARS-COV-2 COVID-19 2020-11-19 Completed [facility]ive rsity of MODERNA 12+ YRS 00:00:00 [place] [facility] VACCINE [facility] SARS-COV-2 COVID-19 2020-11-19 Completed [facility]ive rsity of MODERNA 12+ YRS 00:00:00 [place] [facility] VACCINE Branch SARS-COV-2 COVID-19 2020-11-19 Completed [facility]ive rsity of MODERNA 12+ YRS 00:00:00 [place] [facility] VACCINE [facility] SARS-COV-2 COVID-19 2020-11-19 Completed Unive rsity of MODERNA 12+ YRS 00:00:00 [place] [facility] ical VACCINE Branch TDAP 2020-07-02 Completed University of 00:00:00 [facility] Pneumococcal 2020-07-02 Completed University o f Polysaccharide, 00:00:00 [facility] PPSV23 (PNEUMOVAX) Branch Influenza Virus 2020-07-02 Completed Universit y of Vaccine Quad .5 mL 00:00:00 [place] [facility] 6+ MO [facility] TDAP 2020-07-02 Completed [facility] of 00:00:00 [facility] Pneumococcal 2020-07-02 Completed University o f Polysaccharide, 00:00:00 [place] [facility] PPSV23 (PNEUMOVAX) Branch Influenza Virus 2020-07-02 Completed Universit y of Vaccine Quad .5 mL 00:00:00 [facility] 6+ MO Branch TDAP 2020-07-02 Completed University of 00:00:00 [facility] Pneumococcal 2020-07-02 Completed University o f Polysaccharide, 00:00:00 [place] [facility] PPSV23 (PNEUMOVAX) Branch Influenza Virus 2020-07-02 Completed [facility]it y of Vaccine Quad .5 mL 00:00:00 [facility] 6+ MO Branch TDAP 2020-07-02 Completed [facility] of 00:00:00 [facility] Pneumococcal 2020-07-02 Completed University o f Polysaccharide, 00:00:00 [place] [facility] PPSV23 (PNEUMOVAX) Branch Influenza Virus 2020-07-02 Completed [facility]it y of Vaccine Quad .5 mL 00:00:00 [facility] 6+ MO Branch TDAP 2020-07-02 Completed [facility] of 00:00:00 [facility] Pneumococcal 2020-07-02 Completed University o f Polysaccharide, 00:00:00 [place] [facility] PPSV23 (PNEUMOVAX) Branch Influenza Virus 2020-07-02 Completed [facility]it y of Vaccine Quad .5 mL 00:00:00 [facility] 6+ MO Branch TDAP 2020-07-02 Completed [facility] of 00:00:00 [facility] Pneumococcal 2020-07-02 Completed University o f Polysaccharide, 00:00:00 [place] [facility] PPSV23 (PNEUMOVAX) Branch Influenza Virus 2020-07-02 Completed [facility]it y of Vaccine Quad .5 mL 00:00:00 [facility] 6+ MO Branch TDAP 2020-07-02 Completed [facility] of 00:00:00 [facility] Pneumococcal 2020-07-02 Completed University o f Polysaccharide, 00:00:00 [place] [facility] PPSV23 (PNEUMOVAX) Branch Influenza Virus 2020-07-02 Completed [facility]it y of Vaccine Quad .5 mL 00:00:00 [facility] 6+ MO Branch TDAP 2020-07-02 Completed [facility] of 00:00:00 [facility] Pneumococcal 2020-07-02 Completed University o f Polysaccharide, 00:00:00 [place] [facility] PPSV23 (PNEUMOVAX) Branch Influenza Virus 2020-07-02 Completed [facility]it y of Vaccine Quad .5 mL 00:00:00 [facility] 6+ MO Branch TDAP 2020-07-02 Completed [facility] of 00:00:00 [facility] Pneumococcal 2020-07-02 Completed University o f Polysaccharide, 00:00:00 [place] [facility] PPSV23 (PNEUMOVAX) Branch Influenza Virus 2020-07-02 Completed [facility]it y of Vaccine Quad .5 mL 00:00:00 [facility] 6+ MO Branch TDAP 2020-07-02 Completed [facility] of 00:00:00 [facility] Pneumococcal 2020-07-02 Completed University o f Polysaccharide, 00:00:00 [place] [facility] PPSV23 (PNEUMOVAX) Branch Influenza Virus 2020-07-02 Completed [facility]it y of Vaccine Quad .5 mL 00:00:00 [facility] 6+ MO [place] TDAP 2020-07-02 Completed [facility] of 00:00:00 [facility] Pneumococcal 2020-07-02 Completed University o f Polysaccharide, 00:00:00 [place] [facility] PPSV23 (PNEUMOVAX) Branch Influenza Virus 2020-07-02 Completed [facility]it y of Vaccine Quad .5 mL 00:00:00 [facility] 6+ MO Branch TDAP 2020-07-02 Completed [facility] of 00:00:00 [facility] Pneumococcal 2020-07-02 Completed University o f Polysaccharide, 00:00:00 [place] [facility] PPSV23 (PNEUMOVAX) Branch Influenza Virus 2020-07-02 Completed [facility]it y of Vaccine Quad .5 mL 00:00:00 [facility] 6+ MO Branch TDAP 2020-07-02 Completed [facility] of 00:00:00 [facility] Pneumococcal 2020-07-02 Completed University o f Polysaccharide, 00:00:00 [place] [facility] PPSV23 (PNEUMOVAX) Branch Influenza Virus 2020-07-02 Completed [facility]it y of Vaccine Quad .5 mL 00:00:00 [facility] 6+ MO Branch TDAP 2020-07-02 Completed [facility] of 00:00:00 [facility] Pneumococcal 2020-07-02 Completed University o f Polysaccharide, 00:00:00 [place] [facility] PPSV23 (PNEUMOVAX) Branch Influenza Virus 2020-07-02 Completed [facility]it y of Vaccine Quad .5 mL 00:00:00 [facility] 6+ MO Branch TDAP 2020-07-02 Completed [facility] of 00:00:00 [facility] Pneumococcal 2020-07-02 Completed University o f Polysaccharide, 00:00:00 [place] [facility] PPSV23 (PNEUMOVAX) Branch Influenza Virus 2020-07-02 Completed [facility]it y of Vaccine Quad .5 mL 00:00:00 [facility] 6+ MO Branch TDAP 2020-07-02 Completed [facility] of 00:00:00 [facility] Pneumococcal 2020-07-02 Completed University o f Polysaccharide, 00:00:00 [place] [facility] PPSV23 (PNEUMOVAX) Branch Influenza Virus 2020-07-02 Completed [facility]it y of Vaccine Quad .5 mL 00:00:00 [facility] 6+ MO Branch TDAP 2020-07-02 Completed [facility] of 00:00:00 [facility] Pneumococcal 2020-07-02 Completed University o f Polysaccharide, 00:00:00 [place] [facility] PPSV23 (PNEUMOVAX) Branch Influenza Virus 2020-07-02 Completed [facility]it y of Vaccine Quad .5 mL 00:00:00 [facility] 6+ MO Branch TDAP 2020-07-02 Completed [facility] of 00:00:00 [facility] Pneumococcal 2020-07-02 Completed University o f Polysaccharide, 00:00:00 [place] [facility] PPSV23 (PNEUMOVAX) Branch Influenza Virus 2020-07-02 Completed [facility]it y of Vaccine Quad .5 mL 00:00:00 [facility] 6+ MO Branch TDAP 2020-07-02 Completed [facility] of 00:00:00 [facility] Pneumococcal 2020-07-02 Completed University o f Polysaccharide, 00:00:00 [place] [facility] PPSV23 (PNEUMOVAX) Branch Influenza Virus 2020-07-02 Completed [facility]it y of Vaccine Quad .5 mL 00:00:00 [facility] 6+ MO Branch TDAP 2020-07-02 Completed [facility] of 00:00:00 [facility] Pneumococcal 2020-07-02 Completed University o f Polysaccharide, 00:00:00 [place] [facility] PPSV23 (PNEUMOVAX) Branch Influenza Virus 2020-07-02 Completed [facility]it y of Vaccine Quad .5 mL 00:00:00 [facility] 6+ MO Branch TDAP 2020-07-02 Completed [facility] of 00:00:00 [facility] Pneumococcal 2020-07-02 Completed University o f Polysaccharide, 00:00:00 [place] [facility] PPSV23 (PNEUMOVAX) Branch Influenza Virus 2020-07-02 Completed [facility]it y of Vaccine Quad .5 mL 00:00:00 [facility] 6+ MO Branch TDAP 2020-07-02 Completed [facility] of 00:00:00 [facility] Pneumococcal 2020-07-02 Completed University o f Polysaccharide, 00:00:00 [place] [facility] PPSV23 (PNEUMOVAX) Branch Influenza Virus 2020-07-02 Completed [facility]it y of Vaccine Quad .5 mL 00:00:00 [facility] 6+ MO Branch TDAP 2020-07-02 Completed [facility] of 00:00:00 [facility] Pneumococcal 2020-07-02 Completed University o f Polysaccharide, 00:00:00 [place] [facility] PPSV23 (PNEUMOVAX) Branch Influenza Virus 2020-07-02 Completed Universit y of Vaccine Quad .5 mL 00:00:00 [facility] 6+ MO [place] TDAP 2020-07-02 Completed [facility] of 00:00:00 [facility] Pneumococcal 2020-07-02 Completed University o f Polysaccharide, 00:00:00 [place] [facility] PPSV23 (PNEUMOVAX) Branch Influenza Virus 2020-07-02 Completed Universit y of Vaccine Quad .5 mL 00:00:00 [facility] 6+ MO [place] TDAP 2020-07-02 Completed [facility] of 00:00:00 [facility] Pneumococcal 2020-07-02 Completed [facility] o f Polysaccharide, 00:00:00 [place] [facility] PPSV23 (PNEUMOVAX) Branch Influenza Virus 2020-07-02 Completed Universit y of Vaccine Quad .5 mL 00:00:00 [facility] 6+ MO Branch TDAP 2020-07-02 Completed University of 00:00:00 [facility] Pneumococcal 2020-07-02 Completed University o f Polysaccharide, 00:00:00 [place] [facility] PPSV23 (PNEUMOVAX) Branch Influenza Virus 2020-07-02 Completed Universit y of Vaccine Quad .5 mL 00:00:00 [facility] 6+ MO [place] TDAP 2020-07-02 Completed University of 00:00:00 [facility] Pneumococcal 2020-07-02 Completed University o f Polysaccharide, 00:00:00 [place] [facility] PPSV23 (PNEUMOVAX) Branch Influenza Virus 2020-07-02 Completed Universit y of Vaccine Quad .5 mL 00:00:00 [facility] 6+ MO Branch TDAP 2020-07-02 Completed University of 00:00:00 [facility] Pneumococcal 2020-07-02 Completed University o f Polysaccharide, 00:00:00 [place] [facility] PPSV23 (PNEUMOVAX) Branch Influenza Virus 2020-07-02 Completed Universit y of Vaccine Quad .5 mL 00:00:00 [facility] 6+ MO Branch TDAP 2020-07-02 Completed University of 00:00:00 [facility] Pneumococcal 2020-07-02 Completed University o f Polysaccharide, 00:00:00 [place] [facility] PPSV23 (PNEUMOVAX) Branch Influenza Virus 2020-07-02 Completed Universit y of Vaccine Quad .5 mL 00:00:00 [facility] 6+ MO Branch TDAP 2020-07-02 Completed University of 00:00:00 [facility] Pneumococcal 2020-07-02 Completed University o f Polysaccharide, 00:00:00 [place] [facility] PPSV23 (PNEUMOVAX) Branch Influenza Virus 2020-07-02 Completed Universit y of Vaccine Quad .5 mL 00:00:00 [facility] 6+ MO Branch TDAP 2020-07-02 Completed University of 00:00:00 [facility] Pneumococcal 2020-07-02 Completed University o f Polysaccharide, 00:00:00 [place] [facility] PPSV23 (PNEUMOVAX) Branch Influenza Virus 2020-07-02 Completed Universit y of Vaccine Quad .5 mL 00:00:00 [facility] 6+ MO Branch TDAP 2020-07-02 Completed University of 00:00:00 [facility] Pneumococcal 2020-07-02 Completed University o f Polysaccharide, 00:00:00 [place] [facility] PPSV23 (PNEUMOVAX) Branch Influenza Virus 2020-07-02 Completed Universit y of Vaccine Quad .5 mL 00:00:00 [facility] 6+ MO Branch TDAP 2020-07-02 Completed University of 00:00:00 [facility] Pneumococcal 2020-07-02 Completed University o f Polysaccharide, 00:00:00 [place] [facility] PPSV23 (PNEUMOVAX) Branch Influenza Virus 2020-07-02 Completed Universit y of Vaccine Quad .5 mL 00:00:00 [facility] 6+ MO Branch TDAP 2020-07-02 Completed University of 00:00:00 [facility] Pneumococcal 2020-07-02 Completed University o f Polysaccharide, 00:00:00 [place] [facility] PPSV23 (PNEUMOVAX) Branch Influenza Virus 2020-07-02 Completed Universit y of Vaccine Quad .5 mL 00:00:00 [facility] 6+ MO Branch TDAP 2020-07-02 Completed University of 00:00:00 [facility] Pneumococcal 2020-07-02 Completed University o f Polysaccharide, 00:00:00 [place] [facility] PPSV23 (PNEUMOVAX) Branch Influenza Virus 2020-07-02 Completed Universit y of Vaccine Quad .5 mL 00:00:00 [facility] 6+ MO Branch TDAP 2020-07-02 Completed University of 00:00:00 [facility] Pneumococcal 2020-07-02 Completed University o f Polysaccharide, 00:00:00 [place] [facility] PPSV23 (PNEUMOVAX) Branch Influenza Virus 2020-07-02 Completed Universit y of Vaccine Quad .5 mL 00:00:00 [facility] 6+ MO [place] TDAP 2020-07-02 Completed University of 00:00:00 [facility] Pneumococcal 2020-07-02 Completed University o f Polysaccharide, 00:00:00 [place] [facility] PPSV23 (PNEUMOVAX) Branch Influenza Virus 2020-07-02 Completed Universit y of Vaccine Quad .5 mL 00:00:00 [facility] 6+ MO [place] TDAP 2020-07-02 Completed University of 00:00:00 [facility] Pneumococcal 2020-07-02 Completed University o f Polysaccharide, 00:00:00 [place] [facility] PPSV23 (PNEUMOVAX) Branch Influenza Virus 2020-07-02 Completed Universit y of Vaccine Quad .5 mL 00:00:00 [facility] 6+ MO Branch TDAP 2020-07-02 Completed University of 00:00:00 [facility] Pneumococcal 2020-07-02 Completed University o f Polysaccharide, 00:00:00 [place] [facility] PPSV23 (PNEUMOVAX) Branch Influenza Virus 2020-07-02 Completed Universit y of Vaccine Quad .5 mL 00:00:00 [facility] 6+ MO [place] TDAP 2020-07-02 Completed University of 00:00:00 [facility] Pneumococcal 2020-07-02 Completed University o f Polysaccharide, 00:00:00 [place] [facility] PPSV23 (PNEUMOVAX) Branch Influenza Virus 2020-07-02 Completed Universit y of Vaccine Quad .5 mL 00:00:00 [facility] 6+ MO Branch TDAP 2020-07-02 Completed University of 00:00:00 [facility] Pneumococcal 2020-07-02 Completed University o f Polysaccharide, 00:00:00 [place] [facility] PPSV23 (PNEUMOVAX) Branch Influenza Virus 2020-07-02 Completed Universit y of Vaccine Quad .5 mL 00:00:00 [facility] 6+ MO Branch TDAP 2020-07-02 Completed University of 00:00:00 [facility] Pneumococcal 2020-07-02 Completed University o f Polysaccharide, 00:00:00 [place] [facility] PPSV23 (PNEUMOVAX) Branch Influenza Virus 2020-07-02 Completed Universit y of Vaccine Quad .5 mL 00:00:00 [facility] 6+ MO Branch TDAP 2020-07-02 Completed University of 00:00:00 [facility] Pneumococcal 2020-07-02 Completed University o f Polysaccharide, 00:00:00 [place] [facility] PPSV23 (PNEUMOVAX) Branch Influenza Virus 2020-07-02 Completed Universit y of Vaccine Quad .5 mL 00:00:00 [facility] 6+ MO Branch TDAP 2020-07-02 Completed University of 00:00:00 [facility] Pneumococcal 2020-07-02 Completed University o f Polysaccharide, 00:00:00 [place] [facility] PPSV23 (PNEUMOVAX) Branch Influenza Virus 2020-07-02 Completed Universit y of Vaccine Quad .5 mL 00:00:00 [facility] 6+ MO Branch TDAP 2020-07-02 Completed University of 00:00:00 [facility] Pneumococcal 2020-07-02 Completed University o f Polysaccharide, 00:00:00 [place] [facility] PPSV23 (PNEUMOVAX) Branch Influenza Virus 2020-07-02 Completed Universit y of Vaccine Quad .5 mL 00:00:00 [facility] 6+ MO Branch TDAP 2020-07-02 Completed University of 00:00:00 [facility] Pneumococcal 2020-07-02 Completed University o f Polysaccharide, 00:00:00 [place] [facility] PPSV23 (PNEUMOVAX) Branch Influenza Virus 2020-07-02 Completed Universit y of Vaccine Quad .5 mL 00:00:00 [facility] 6+ MO Branch TDAP 2020-07-02 Completed University of 00:00:00 [facility] Pneumococcal 2020-07-02 Completed University o f Polysaccharide, 00:00:00 [place] [facility] PPSV23 (PNEUMOVAX) Branch Influenza Virus 2020-07-02 Completed Universit y of Vaccine Quad .5 mL 00:00:00 [facility] 6+ MO Branch TDAP 2020-07-02 Completed University 00:00:00 [facility] Pneumococcal 2020-07-02 Completed University o f Polysaccharide, 00:00:00 [facility] ical PPSV23 (PNEUMOVAX) Branch Influenza Virus 2020-07-02 Completed Universit y of Vaccine Quad .5 mL 00:00:00 [facility] 6+ MO Branch TDAP 2020-07-02 Completed University 00:00:00 [facility] Pneumococcal 2020-07-02 Completed University o f Polysaccharide, 00:00:00 [facility] ical PPSV23 (PNEUMOVAX) Branch Influenza Virus 2020-07-02 Completed Universit y of Vaccine Quad .5 mL 00:00:00 [facility] 6+ MO Branch TDAP 2020-07-02 Completed University 00:00:00 [facility] Pneumococcal 2020-07-02 Completed University o f Polysaccharide, 00:00:00 [facility] ical PPSV23 (PNEUMOVAX) Branch Influenza Virus 2020-07-02 Completed Universit y of Vaccine Quad .5 mL 00:00:00 [facility] 6+ MO Branch TDAP Unknown Completed [facility] Pneumococcal Unknown Completed University o f Polysaccharide, [facility] ical PPSV23 (PNEUMOVAX) Branch Influenza Virus Unknown Completed Universit y of Vaccine Quad .5 mL [facility] 6+ MO Branch (FLUZONE/FLULAVAL/F LUARIX) SARS-COV-2 COVID-19 Unknown Completed Unive rsity of MODERNA 12+ YRS [facility] ical VACCINE Branch SARS-COV-2 COVID-19 Unknown Completed Unive rsity of MODERNA 12+ YRS [facility] ical VACCINE Branch Influenza Virus Unknown Completed Universit y of Vaccine,quad [place] [facility],preserve Free Branch 65+ (FLUAD) SARS-COV-2 COVID-19 Unknown Completed Unive rsity of VACCINE - (MODERNA) [facility] Pneumococcal 20 Unknown Completed Universit y of Conjugate, PCV20 [facility] dical (Prevnar 20) Branch SARS-COV-2 COVID-19 Unknown Completed Unive rsity of VACCINE 12 YRS+, [place] [facility] BIVALENT 0.5ML, IM, Branc h (MODERNA-BLUE TOP) TDAP Unknown Completed [facility] Pneumococcal Unknown Completed University o f Polysaccharide, [place] [facility] PPSV23 (PNEUMOVAX) Branch Influenza Virus Unknown Completed Universit y of Vaccine Quad .5 mL [facility] 6+ MO Branch (FLUZONE/FLULAVAL/F LUARIX) SARS-COV-2 COVID-19 Unknown Completed Unive rsity of MODERNA 12+ YRS [place] [facility] VACCINE Branch SARS-COV-2 COVID-19 Unknown Completed Unive rsity of MODERNA 12+ YRS [place] [facility] VACCINE Branch Influenza Virus Unknown Completed [facility]it y of Vaccine,quad [place] [facility],preserve Free Branch 65+ (FLUAD) SARS-COV-2 COVID-19 Unknown Completed Unive rsity of VACCINE - (MODERNA) [facility] Pneumococcal 20 Unknown Completed Universit y of Conjugate, PCV20 [place] [facility] (Prevnar 20) Branch SARS-COV-2 COVID-19 Unknown Completed Unive rsity of VACCINE 12 YRS+, [place] [facility] BIVALENT 0.5ML, IM, Branc h (MODERNA-BLUE TOP) TDAP Unknown Completed [facility] Pneumococcal Unknown Completed University o f Polysaccharide, [place] [facility] PPSV23 (PNEUMOVAX) Branch Influenza Virus Unknown Completed Universit y of Vaccine Quad .5 mL [facility] IM 6+ MO Branch (FLUZONE/FLULAVAL/F LUARIX) SARS-COV-2 COVID-19 Unknown Completed Unive rsity of MODERNA 12+ YRS [place] [facility] VACCINE Branch SARS-COV-2 COVID-19 Unknown Completed Unive rsity of MODERNA 12+ YRS [place] [facility] VACCINE Branch Influenza Virus Unknown Completed Universit y of Vaccine,quad [place] [facility],preserve Free Branch 65+ (FLUAD) SARS-COV-2 COVID-19 Unknown Completed Unive rsity of VACCINE - (MODERNA) [facility] Pneumococcal 20 Unknown Completed Universit y of Conjugate, PCV20 [place] [facility] (Prevnar 20) Branch SARS-COV-2 COVID-19 Unknown Completed Unive rsity of VACCINE 12 YRS+, [place] [facility] BIVALENT 0.5ML, IM, Branc h (MODERNA-BLUE TOP) TDAP Unknown Completed [facility] Pneumococcal Unknown Completed University o f Polysaccharide, [place] [facility] PPSV23 (PNEUMOVAX) Branch Influenza Virus Unknown Completed Universit y of Vaccine Quad .5 mL [place] [facility] IM 6+ MO Branch (FLUZONE/FLULAVAL/F LUARIX) SARS-COV-2 COVID-19 Unknown Completed Unive rsity of MODERNA 12+ YRS [place] [facility] VACCINE Branch SARS-COV-2 COVID-19 Unknown Completed Unive rsity of MODERNA 12+ YRS [place] [facility] VACCINE [facility] Influenza Virus Unknown Completed [facility]it y of Vaccine,quad [place] [facility],preserve Free Branch 65+ (FLUAD) SARS-COV-2 COVID-19 Unknown Completed Unive rsity of VACCINE - (MODERNA) [facility] Branch Pneumococcal 20 Unknown Completed Universit y of Conjugate, PCV20 [place] [facility] (Prevnar 20) Branch SARS-COV-2 COVID-19 Unknown Completed Unive rsity of VACCINE 12 YRS+, [place] [facility] BIVALENT 0.5ML, IM, Branc h (MODERNA-BLUE TOP) TDAP Unknown Completed [facility] Pneumococcal Unknown Completed University o f Polysaccharide, [facility] ica PPSV23 (PNEUMOVAX) Branch Influenza Virus Unknown Completed Universit y of Vaccine Quad .5 mL [place] [facility] IM 6+ MO Branch (FLUZONE/FLULAVAL/F LUARIX) SARS-COV-2 COVID-19 Unknown Completed Unive rsity of MODERNA 12+ YRS [facility] ical VACCINE Branch SARS-COV-2 COVID-19 Unknown Completed Unive rsity of MODERNA 12+ YRS [facility] ical VACCINE Branch Influenza Virus Unknown Completed Universit y of Vaccine,quad [place] [facility],preserve Free Branch 65+ (FLUAD) SARS-COV-2 COVID-19 Unknown Completed Unive rsity of VACCINE - (MODERNA) [facility] Branch Pneumococcal 20 Unknown Completed Universit y of Conjugate, PCV20 [place] [facility] (Prevnar 20) Branch SARS-COV-2 COVID-19 Unknown Completed Unive rsity of VACCINE 12 YRS+, [place] [facility] BIVALENT 0.5ML, IM, Branc h (MODERNA-BLUE TOP) Vital Signs Vital Name Observation Time Observation Value Comments Source Systolic blood 2023-05-13 16:11:00 173 mm[Hg] Univer sity of pressure [facility] Branch Diastolic blood 2023-05-13 16:11:00 90 mm[Hg] Unive rsity of pressure [facility] Branch Oxygen saturation in 2023-05-13 16:11:00 100 /min University Arterial blood by [facility] Pulse oximetry Branch Respiratory rate 2023-05-13 16:06:00 14 /min Univ ersity of [facility] Branch Heart rate 2023-05-13 15:38:00 84 /min Universi ty of [facility] Body temperature 2023-05-13 15:33:00 36.17 Savi Univ ersity of [facility] Body height 2023-05-09 23:30:00 165.1 cm Universi ty of [facility] Body weight 2023-05-09 23:30:00 80.74 kg Universi ty of [place] [facility] BMI 2023-05-09 23:30:00 29.62 kg/m2 Universi ty of [facility] Systolic blood 2023-05-13 13:19:00 206 mm[Hg] Univer sity of pressure [facility] Branch Diastolic blood 2023-05-13 13:19:00 100 mm[Hg] Unive rsity of pressure [facility] Branch Heart rate 2023-05-13 12:12:00 67 /min [facility]i ty of [facility] Body height 2023-05-09 23:30:00 165.1 cm [facility] [place] [facility] Body weight 2023-05-09 23:30:00 80.74 kg [facility]i [facility] [place] [facility] BMI 2023-05-09 23:30:00 29.62 kg/m2 [facility] [place] [facility] Body height 2023-03-18 19:00:00 165.1 cm [facility] Body weight 2023-03-18 19:00:00 79.833 kg [facility] [place] [facility] BMI 2023-03-18 19:00:00 29.29 kg/m2 Universi ty of [facility] Systolic blood 2023-03-03 20:08:00 197 mm[Hg] Univer sity of pressure [facility] Branch Diastolic blood 2023-03-03 20:08:00 143 mm[Hg] Unive rsity of pressure [facility] Branch Heart rate 2023-03-03 20:01:00 68 /min Universi ty of [facility] Body temperature 2023-03-03 20:01:00 36.06 Savi Univ ersity of [place] [facility] Respiratory rate 2023-03-03 20:01:00 18 /min Univ ersity of [facility] Body height 2023-03-03 20:01:00 165.1 cm [facility] [place] [facility] Body weight 2023-03-03 20:01:00 80.06 kg [facility]i [facility] [place] [facility] BMI 2023-03-03 20:01:00 29.37 kg/m2 [facility] of [place] [facility] Oxygen saturation in 2023-03-03 20:01:00 100 /min University of Arterial blood by [facility] Pulse oximetry Branch Systolic blood 2023-02-01 14:37:00 127 mm[Hg] Univer sity of pressure [facility] Diastolic blood 2023-02-01 14:37:00 97 mm[Hg] Unive rsity of pressure [facility] Respiratory rate 2023-02-01 14:37:00 18 /min Univ ersity of [facility] Oxygen saturation in 2023-02-01 14:37:00 97 /min University of Arterial blood by [facility] Pulse oximetry Branch Heart rate 2023-02-01 14:25:00 71 /min [facility]i ty of [facility] Body temperature 2023-02-01 14:07:00 36.11 Savi Univ ersity of [place] [facility] Body height 2023-01-24 20:45:00 165.1 cm [facility] [place] [facility] Body weight 2023-01-24 20:45:00 84.823 kg [facility]i ty of [place] [facility] BMI 2023-01-24 20:45:00 31.12 kg/m2 [facility] [place] [facility] Systolic blood 2023-02-01 14:37:00 127 mm[Hg] Univer sity of pressure [facility] Diastolic blood 2023-02-01 14:37:00 97 mm[Hg] Unive rsity of pressure [facility] Respiratory rate 2023-02-01 14:37:00 18 /min Univ ersity of [place] [facility] Oxygen saturation in 2023-02-01 14:37:00 97 /min University of Arterial blood by [facility] Pulse oximetry Branch Heart rate 2023-02-01 14:25:00 71 /min [facility]i ty of [facility] Body temperature 2023-02-01 14:07:00 36.11 Savi Univ ersity of [place] [facility] Body height 2023-01-24 20:45:00 165.1 cm [facility] Body weight 2023-01-24 20:45:00 84.823 kg [facility] [place] [facility] BMI 2023-01-24 20:45:00 31.12 kg/m2 [facility] [place] [facility] Systolic blood 2022-12-03 15:05:00 147 mm[Hg] Univer sity of pressure [facility] Diastolic blood 2022-12-03 15:05:00 94 mm[Hg] Unive rsity of pressure [facility] Heart rate 2022-12-03 15:05:00 71 /min Universi ty of [facility] Oxygen saturation in 2022-12-03 15:05:00 98 /min [place] of Arterial blood by [facility] Pulse oximetry Branch Body temperature 2022-12-03 15:02:00 37.22 Savi Univ ersity of [facility] Respiratory rate 2022-12-03 15:02:00 18 /min Univ ersity of [facility] Body height 2022-12-03 15:02:00 165.1 cm [facility]i ty [facility] [place] [facility] Body weight 2022-12-03 15:02:00 83.099 kg [facility]i ty [facility] [place] [facility] BMI 2022-12-03 15:02:00 30.49 kg/m2 [facility] Systolic blood 2022-11-18 19:43:00 165 mm[Hg] Univer sity of pressure [facility] Diastolic blood 2022-11-18 19:43:00 89 mm[Hg] Unive rsity of pressure [facility] Heart rate 2022-11-18 19:42:00 77 /min [facility]i ty of [place] [facility] Respiratory rate 2022-11-18 19:42:00 18 /min Univ ersity of [place] [facility] Body height 2022-11-18 19:42:00 165.1 cm [facility] [place] [facility] Body weight 2022-11-18 19:42:00 84.823 kg [facility] [place] [facility] BMI 2022-11-18 19:42:00 31.12 kg/m2 [facility] ty [facility] [place] [facility] Oxygen saturation in 2022-11-18 19:42:00 96 /min University of Arterial blood by [facility] brad Pulse oximetry Branch Systolic blood 2022-11-18 19:37:00 165 mm[Hg] Univer sity of pressure [facility] Diastolic blood 2022-11-18 19:37:00 89 mm[Hg] Unive rsity of pressure [facility] Heart rate 2022-11-18 19:35:00 77 /min Universi ty of [place] [facility] Respiratory rate 2022-11-18 19:35:00 18 /min Univ ersity of [place] [facility] Body height 2022-11-18 19:35:00 165.1 cm [facility] Body weight 2022-11-18 19:35:00 84.823 kg [facility] BMI 2022-11-18 19:35:00 31.12 kg/m2 [facility] Oxygen saturation in 2022-11-18 19:35:00 96 /min University of Arterial blood by [facility] Pulse oximetry Branch Systolic blood 2022-10-05 19:24:00 184 mm[Hg] Univer sity of pressure [facility] Diastolic blood 2022-10-05 19:24:00 118 mm[Hg] Unive rsity of pressure [facility] Heart rate 2022-10-05 19:24:00 62 /min [facility]i ty of [place] [facility] Oxygen saturation in 2022-10-05 19:24:00 100 /min University of Arterial blood by [facility] Pulse oximetry Branch Respiratory rate 2022-10-05 19:21:00 18 /min Univ ersity of [facility] Body height 2022-10-05 19:21:00 165.1 cm [facility]i ty of [place] [facility] Body weight 2022-10-05 19:21:00 85.684 kg [facility] [place] [facility] BMI 2022-10-05 19:21:00 31.43 kg/m2 [facility] [place] [facility] Systolic blood 2022-08-04 19:53:00 168 mm[Hg] Univer sity of pressure [facility] Diastolic blood 2022-08-04 19:53:00 103 mm[Hg] Unive rsity of pressure [facility] Heart rate 2022-08-04 19:53:00 58 /min [facility]i ty [facility] [place] [facility] Body temperature 2022-08-04 19:52:00 36.22 Savi Univ ersity of [place] [facility] Respiratory rate 2022-08-04 19:52:00 16 /min Univ ersity of [place] [facility] Body height 2022-08-04 19:52:00 165.1 cm [facility] [place] [facility] Body weight 2022-08-04 19:52:00 87.454 kg [facility] [place] [facility] BMI 2022-08-04 19:52:00 32.08 kg/m2 [facility] [place] [facility] Oxygen saturation in 2022-08-04 19:52:00 95 /min University of Arterial blood by [facility] brad Pulse oximetry Branch Systolic blood 2022-07-14 14:52:00 169 mm[Hg] Univer sity of pressure [facility] Diastolic blood 2022-07-14 14:52:00 98 mm[Hg] Unive rsity of pressure [facility] Heart rate 2022-07-14 14:52:00 81 /min [facility]i ty of [place] [facility] Respiratory rate 2022-07-14 14:50:00 18 /min Univ ersity of [facility] Body height 2022-07-14 14:50:00 165.1 cm [facility] [place] [facility] Body weight 2022-07-14 14:50:00 86.637 kg [facility] [place] [facility] BMI 2022-07-14 14:50:00 31.78 kg/m2 [facility] ty [facility] [place] [facility] Oxygen saturation in 2022-07-14 14:50:00 99 /min University of Arterial blood by [facility] Pulse oximetry Branch Systolic blood 2022-03-08 20:18:00 178 mm[Hg] Univer sity of pressure [facility] Diastolic blood 2022-03-08 20:18:00 121 mm[Hg] Unive rsity of pressure [facility] Heart rate 2022-03-08 20:17:00 78 /min [facility]i ty of [place] [facility] Respiratory rate 2022-03-08 20:17:00 18 /min Univ ersity of [place] [facility] Body weight 2022-03-08 20:17:00 88.905 kg [facility] [place] [facility] BMI 2022-03-08 20:17:00 32.62 kg/m2 [facility] ty [facility] [place] [facility] Oxygen saturation in 2022-03-08 20:17:00 99 /min [place] of Arterial blood by [facility] Pulse oximetry [place] Body height 2023-03-18 19:00:00 165.1 cm [facility] Body weight 2023-03-18 19:00:00 79.833 kg [facility] BMI 2023-03-18 19:00:00 29.29 kg/m2 [facility] Systolic blood 2023-03-03 20:08:00 197 mm[Hg] Univer sity of pressure [facility] Diastolic blood 2023-03-03 20:08:00 143 mm[Hg] Unive rsity of pressure [facility] Heart rate 2023-03-03 20:01:00 68 [facility] Body temperature 2023-03-03 20:01:00 36.06 Savi [facility] Respiratory rate 2023-03-03 20:01:00 18 /min [facility] Oxygen saturation in 2023-03-03 20:01:00 100 /min [facility] Arterial blood by [facility] Pulse oximetry [place] Procedures Procedure Date / Time Performing Clinician Source Performed COLONOSCOPY 2023-05-13 13:35:00 Virginie Peña [facility] COLONOSCOPY (ENDO) 2023-05-13 13:31:31 [facility] (ENDO) 2023-05-13 13:31:31 [facility]GERY - [facility] 2023-05-13 05:01:00 Doctor Unassigned, No Univ ersity of [facility] SURGERY [facility] 2023-03-25 05:01:00 Doctor Unassigned, No Univ ersity of [facility] SURGERY - [facility] 2023-03-25 05:01:00 Doctor Unassigned, No Univ ersity of [facility] COLONOSCOPY (ENDO) 2023-02-01 13:41:52 [facility] COLONOSCOPY (ENDO) 2023-02-01 13:41:52 [facility] COLONOSCOPY (ENDO) 2023-02-01 13:41:52 [facility] COLONOSCOPY 2023-02-01 13:40:00 Virginie Peña [facility] COLONOSCOPY 2023-02-01 13:40:00 [facility]SE 2023-02-01 13:08:00 Casey Virginie [facility] (AUTOMATED) [facility] POCT GLUCOSE 2023-02-01 13:08:00 Casey Virginie [facility] (AUTOMATED) [facility] POCT GLUCOSE 2023-02-01 13:08:00 Casey [facility] (AUTOMATED) [facility] DAY SURGERY - [facility] 2023-02-01 05:01:00 Doctor Unassigned, No [facility] 2023-02-01 05:01:00 Doctor Unassigned, No Univ [facility] VITAMIN B12, LEVEL 2022-11-18 20:41:00 [facility] FREE T4 2022-11-18 20:41:00 Marco Church [facility] THYROID STIMULATING 2022-11-18 20:41:00 Marco Church [facility] HORMONE [facility] COMP. METABOLIC PANEL 2022-11-18 20:41:00 Marco Church [facility] ([id number]) [facility] LIPID PANEL 2022-11-18 20:41:00 Claire [facility] ([id number])(TOTAL Medical Branch CHOLESTEROL, TRIGLYCERIDES, HDL) CBC WITH DIFF 2022-11-18 20:41:00 Marco Church [facility] GLYCOSYLATED HEMOGLOBIN 2022-11-18 20:41:00 Marco Church [facility] (A1C) [facility] N-TERMINAL PRO-BNP 2022-11-18 20:41:00 Anna Welsh [facility] VITAMIN D, 25-OH 2022-11-18 20:41:00 Marco Church [facility] FREE T3 2022-11-18 20:41:00 Marco Church [facility] SARS-COV-2 COVID-19 2022-11-18 20:40:30 Marco Church [facility] VACCINE 12 YRS+, Medical Branch BIVALENT 0.5ML, IM (MODERNA BOOSTER) PNEUMOCOCCAL 20 2022-11-18 20:40:29 Marco Church [facility] CONJUGATE (PREVNAR 20) Medical B ranch VACCINE FLU 2022-08-04 20:27:23 Anna Welsh [facility] VACC(),65+YR,0 Medical Branch .5 ML,IM,ADJUVANTED,QUAD(F LUAD) XR LUMBAR SPINE 3 VW 2022-07-14 16:40:05 Marco Church [facility] POCT HEMOGLOBIN A1C 2022-07-14 15:53:00 Marco Church [facility] TEST [facility] ASSIGNMENT OF BENEFITS 2022-07-14 14:29:20 Doctor Unassigned, No [facility] Name [facility] Branch Encounters Start End Encounter Admission Attending Care Care Encounter Source Date/Time Date/Time Type Type Clinicians Facility Department ID 2021-06-13 Emergency [facility] [id number] Univers [facility]-24 2023-05-24 Outpatient R [facility] [id number] Univers 08:00:00 08:00:00 [facility] 2023-05-13 2023-05-13 Outpatient R [facility] SHANE [id number] Univers 07:02:00 11:55:00 VIRGINIE [facility] 2023-05-13 2023-05-13 Hospital [facility] 1.2.840.114 [id number] Univers 07:02:00 11:55:00 Encounter Virginie EDEN 350.1.13.10 ity [facility] [place] [id number] [place] [id number] Branch 2023-05-13 2023-05-13 Surgery [facility] 1.2.719.706 [id number] Univers 08:25:00 09:28:00 Virginie EDEN 350.1.13.10 i ty of [facility] 4.2.[place] [id number] [facility] 020 [place] 2023-05-13 2023-05-13 Orders Doctor GILBERTO 1.2.840.114 [id number] Univers 00:00:00 00:00:00 Only Unassigned, MALOU 350.1.13.10 ity of [place] [facility] 4.2.7.2.686 Rno as [id number] [facility] 009 [place] 2023-05-07 2023-05-07 [facility] 1.2.840.114 [id number] Univers 00:00:00 00:00:00 Marco EDEN 350.1.13.10 i ty of [facility] 4.2.7.2.[place] [id number] Pr dical NAL 044 [facility] 2023-04-12 2023-04-12 Outpatient R DIANA MIGUEL [facility] [id number] Univers 13:45:00 13:45:00 DIANA MIGUEL [facility] 2023-04-05 2023-04-05 [facility] 1.2.840.114 [id number] Univers 00:00:00 00:00:00 Virginie EDEN 350.1.13.10 i ty of [facility] 4.2.7.2.[place] [id number] Pr dical NAL 188 [facility] 2023-03-25 2023-03-25 Anesthesia Alison, 1.2.840.9 [id number] Univers 10:36:18 10:36:18 Event Joelle 17391.1.1 ity of 3.104.2.7 [place] .3.164864 Medica l .8 [place] 2023-03-25 2023-03-25 Outpatient R [facility] SHANE [id number] Univers 09:12:00 10:34:00 VIRGINIE mcclendon [facility] 2023-03-25 2023-03-25 [facility] 1.2.840.6 [id number] Univers 09:12:00 10:34:00 Encounter Virginie 70746.1.1 it y of 3.104.2.7 [place] .3.425140 Medica l .8 Branch 2023-03-25 2023-03-25 Orders Doctor 1.2.840.8 [id number] Univers 00:00:00 00:00:00 Only Unassigned, 53159.1.1 ity of [place] 3.104.2.7 [place] .3.875973 Medica l .8 Branch 2023-03-18 2023-03-18 Travel 1.2.840.1 1.2.575.660 [id number] Univers 00:00:00 00:00:00 98667.1.1 350.1.13.10 ity of 3.104.2.7 4.[place].3.698 [place] .3.704676 084.8 Medica l .8 [place] 2023-03-03 2023-03-03 [facility] [id number] Univers 14:40:00 15:37:16 PETER ity of [facility] 2023-03-03 2023-03-03 Office Edparag, 1.2.840.7 [id number] Univers 14:40:00 15:37:16 Visit Marco 63809.1.1 ity of 3.104.2.7 [place] .3.910527 Medica l .8 Branch 2023-03-03 2023-03-03 Travel 1.2.840.1 1.2.561.486 [id number] Univers 00:00:00 00:00:00 66190.1.1 350.1.13.10 ity of 3.104.2.7 4.[place]7.3.698 [place] .3.244588 084.8 Medica l .8 Branch 2023-02-04 2023-02-04 Telephone Casey, 1.2.840.8 [id number] Univers 00:00:00 00:00:00 Virginie 71972.1.1 ity of 3.104.2.7 [place] .3.198930 Medica l .8 Branch 2023-02-03 2023-02-03 Prep For Peña, 1.2.840.4 [id number] Univers 00:00:00 00:00:00 Surgery Virginie 66492.1.1 ity of 3.104.2.7 [place] .3.657372 Medica l .8 Branch 2023-02-03 2023-02-03 Letter Peña, 1.2.840.0 [id number] Univers 00:00:00 00:00:00 (Out) Virginie 34183.1.1 ity of 3.104.2.7 [place] .3.667817 Medica l .8 Branch 2023-02-01 2023-02-01 Surgery Peña, 1.2.840.0 [id number] Univers 08:47:00 09:48:00 Virginie 07561.1.1 ity of 3.104.2.7 [place] .3.396900 Medica l .8 Branch 2023-02-01 2023-02-01 Outpatient R CASEY, [facility] SHANE [id number] Univers 07:49:00 09:45:00 VIRGINIE ity of [facility] 2023-02-01 2023-02-01 Hospital [place], 1.2.840.3 [id number] Univers 07:49:00 09:45:00 Encounter Virginie 97392.1.1 it y of 3.104.2.7 [place] .3.476228 Medica l .8 Branch 2023-02-01 2023-02-01 Anesthesia Flora Quinones 1.2.840.1 [id number] Univers 08:50:00 09:01:00 Event Javed Ovalle 30616.1.1 ity of 3.104.2.7 [place] .3.414877 Medica l .8 Branch 2023-02-01 2023-02-01 Telephone [place], 1.2.840.2 [id number] Univers 00:00:00 00:00:00 Virginie 98916.1.1 ity of 3.104.2.7 [place] .3.745287 Medica l .8 Branch 2023-01-242023-01-24 Travel 1.2.840.1 1.2.829.893 [id number] Univers 00:00:00 00:00:00 42203.1.1 350.1.13.10 ity of 3.104.2.7 4.[place]7.3.698 [place] .3.510533 084.8 Medica l .8 Branch 2023-01-20 2023-01-20 Telephone Casey, 1.2.840.7 [id number] Univers 00:00:00 00:00:00 Virginie 34623.1.1 ity of 3.104.2.7 [place] .3.933085 Medica l .8 Branch 2023-01-19 2023-01-19 Prep For Casey, 1.2.840.8 [id number] Univers 00:00:00 00:00:00 Surgery Virginie 03749.1.1 ity of 3.104.2.7 [place] .3.289042 Medica l .8 [place] 2023-01-10 2023-01-10 Telephone Emilyzacpeng, 1.2.840.3 [id number] Univers 00:00:00 00:00:00 Peter 63646.1.1 ity of 3.104.2.7 [place] .3.404894 Medica l .8 [place] 2023-01-03 2023-01-03 Outpatient R BLAISE [facility] [id number] Univers 13:00:00 13:00:00 SENDIL ity of [facility] 2022-12-29 2022-12-29 [facility] [id number] Univers 14:00:00 14:00:00 SENDIL ity of [facility] 2022-12-10 2022-12-10 Telephone [facility] 1.2.979.163 [id number] Univers 00:00:00 00:00:00 Sendil Gian EDEN 350.1.13.10 ity of [place].7.2.[place] [id number] Pr dical NAL 059 [facility] 2022-12-03 2022-12-03 Outpatient [facility] [id number] Univers 11:22:01 23:59:00 MARCO mcclendon [facility] 2022-12-03 2022-12-03 [facility] 1.2.840.114 [id number] Univers 10:50:00 23:59:00 Encounter Marco EDEN 350.1.13.10 ity [facility] [place]2.7.2.[place] [id number] [facility] 801 [place] 2022-12-03 2022-12-03 Office [facility] 1.2.840.114 [id number] Univers 09:30:00 11:08:55 Visit Kathy EDEN 350.1.13.10 ity [facility] 4[place]2.7.2.[place] [id number] Pr dical NAL 188 [facility] 2022-11-30 2022-11-30 [facility] [id number] Univers 08:40:00 08:40:00 KATY timmy [facility] 2022-11-25 2022-11-25 Outpatient [facility] [id number] Univers 00:00:00 00:00:00 MARCO mcclendon [facility] 2022-11-22 2022-11-22 [place] [facility] 1.2.624.434 [id number] Univers 00:00:00 00:00:00 Anna EDEN 350.1.13.10 ity [facility] 4[place]2.7.2.[place] [id number] Pr dical NAL 059 [facility] 2022-11-18 2022-11-18 Office [facility] 1.2.840.114 [id number] Univers 15:40:00 15:40:00 Visit Marco EDEN 350.1.13.10 i ty of [facility] 4.2.7.2.[place] [id number] Pr dical NAL 044 [facility] 2022-11-18 2022-11-18 Office [facility] 1.2.840.114 [id number] Univers 14:40:00 15:32:06 Visit Marco EDEN 350.1.13.10 i ty of [place] 4.2.7.2.[place] [id number] Pr dical NAL 044 [facility] 2022-11-18 2022-11-18 Outpatient [facility] [id number] Univers 15:40:00 15:26:11 MARCO mcclendon [facility] 2022-11-18 2022-11-18 Electric Serviceman 2, Adc Lab [facility] 1.2.840.114 [id number] Univers 09:15:00 09:30:00 Visit Marco Church 350.1.13.10 ity of [place] 4.2.7.2.[place] [id number] Pr dical NAL 353 [facility] 2022-11-09 2022-11-09 Outpatient R CLAIRE [facility] [id number] Univers 08:00:00 08:00:00 MARCO mcclendon [facility] 2022 2022 Refill [facility] 1.2.840.114 [id number] [facility] 00:00:00 00:00:00 Anna EDEN 350.1.13.10 ity [facility] 4.2.7.2.[place] [id number] Pr dical NAL 059 [facility] 2022-10-05 2022-10-05 Outpatient R BLAISE [facility] [id number] Univers 13:30:00 13:49:26 SENDIL danelle [facility] 2022-10-05 2022-10-05 Office [facility] 1.2.840.114 [id number] Univers 13:30:00 13:49:26 Visit Anna EDEN 350.1.13.10 ity [facility] 4.2.7.2.[place] [id number] Pr dical NAL 059 [facility] 2022-08-04 2022-08-04 Office Blaise [facility] 1.2.840.114 [id number] Univers 14:30:00 14:30:00 Visit Anna EDEN 350.1.13.10 ity of [place] 4.2.7.2.[place] [id number] Pr dical NAL 059 [facility] 2022-08-04 2022-08-04 Outpatient R BLAISE [facility] [id number] Univers 14:30:00 14:10:32 SENDJASON mcclendon [facility] 2022-08-02 2022-08-02 Outpatient R PIERCE BALLARD [facility] [id number] Univers 13:00:00 13:00:00 PIERCE BALLARD [facility] 2022-07-28 2022-07-28 Outpatient [facility] [id number] Univers 00:00:00 00:00:00 MARCO mcclendon [facility] 2022-07-26 2022-07-26 Outpatient [facility] [id number] Univers 08:45:00 09:36:52 BRENDA timmy [facility] 2022-07-26 2022-07-26 Ancillary Fallon Kay [facility] 1.2.84 0.114 [id number] Univers 08:45:00 09:36:52 Visit Brenda Nash 350.1.13.10 ity [facility] 4[place]2.[place].2.[place] [id number] Pr dical NAL 179 [facility] 2022-07-20 2022-07-20 Outpatient [facility] [id number] Univers 00:00:00 00:00:00 MARCO mcclendon [facility] 2022-07-14 2022-07-14 [facility] 1.2.840.114 [id number] Univers 10:26:13 23:59:00 Encounter Marco EDEN 350.1.13.10 ity [place] [id number] [facility] 807 [place] 2022-07-14 2022-07-14 Outpatient [facility] [id number] Univers 09:00:00 09:51:36 MARCO mcclendon [facility] 2022-07-14 2022-07-14 Office [facility] 1.2.840.114 [id number] Univers 09:00:00 09:51:36 Visit Marco EDEN 350.1.13.10 i ty of [place].2.[place] [id number] [facility] 044 [facility] 2022-07-14 2022-07-14 Outpatient [facility] [id number] Univers 09:00:00 09:00:00 MARCO mcclendon [facility] 2022-07-14 2022-07-14 Orders Doctor GILBERTO 1.2.840.114 [id number] Univers 00:00:00 00:00:00 Only Unassigned, MALOU 350.1.13.10 ity of [place] [facility] 4.2.7.2.686 Ron as [id number] [address] 2022-07-14 2022-07-14 [facility] 1.2.840.114 [id number] Univers 00:00:00 00:00:00 Marco EDEN 350.1.13.10 i ty of [place] 4.2.[place].2.[place] [id number] [facility] 231 [facility] 2022-07-05 2022-07-05 [facility] [id number] Univers 14:00:00 14:00:00 [facility] 2022-07-05 2022-07-05 Outpatient R BLAISE [facility] [id number] Univers 14:00:00 14:00:00 SENDIL [facility] 2022-06-28 2022-06-28 Telephone [facility] 1.2.840.114 [id number] Univers 00:00:00 00:00:00 Marco EDEN 350.1.13.10 i ty of [place] 4[place].2.[place] [id number] Pr dical NAL 044 [facility] 2022-06-14 2022-06-14 Outpatient R ASHU [facility] [id number] Univers 10:00:00 10:00:00 JELENA mcclendon [facility] 2022-06-11 2022-06-11 Outpatient R ASHU [facility] [id number] Univers 09:00:00 09:00:00 JELENA mcclendon [facility] 2022-06-11 2022-06-11 Outpatient R ASHU [facility] [id number] Univers 09:00:00 09:00:00 JELENA mcclendon [facility] 2022-06-11 2022-06-11 Outpatient R ASHU [facility] [id number] Univers 09:00:00 09:00:00 JELENA ity [facility] 2022-04-08 2022-04-08 Out[facility] [id number] Univers 10:00:00 10:00:00 [facility] 2022-04-02 2022-04-02 [facility] [id number] Univers 14:30:00 14:36:00 SENDIL [facility] 2022-04-02 2022-04-02 Office [facility] 1.2.840.114 [id number] Univers 14:30:00 14:36:00 Visit Sendil Gian EDEN 350.1.13.10 [facility] 4.2.7.2.686 Rufina BRINK [id number] Pr dical NAL 059 [facility] 2022-04-02 2022-04-02 Out[facility] [id number] Univers 14:30:00 14:36:00 SENDIL ity [facility] 2022-03-26 2022-03-26 Out[facility] [id number] Univers 10:00:00 23:59:00 SENDIL ity [facility] 2022-03-26 2022-03-26 Out[facility] [id number] Univers 10:00:00 23:59:00 SENDIL ity [facility] 2022-03-26 2022-03-26 Outpatient R BLAISE, [facility] [id number] Univers 10:00:00 23:59:00 SENDIL ity [facility] 2022-03-24 2022-03-24 Telephone [facility] 1.2.840.114 [id number] Univers 00:00:00 00:00:00 Marco EDEN 350.1.13.10 i ty [facility] 4[place]7.2.[place] [id number] Pr dical NAL 044 [facility] 2022-03-23 2022-03-23 Out[facility] [id number] Univers 08:54:09 23:59:00 SENDIL ity [facility] 2022-03-23 2022-03-23 [facility] [id number] Univers 08:54:09 23:59:00 SENDIL ity [facility] 2022-03-23 2022-03-23 Out[facility] [id number] Univers 09:00:00 09:00:00 SENDIL ity [facility] 2022-03-09 2022-03-09 [facility] [id number] Univers 09:30:00 09:47:03 [facility] 2022-03-09 2022-03-09 Office [facility] 1.2.840.114 [id number] Univers 09:30:00 09:47:03 Visit Sendil Gian EDEN 350.1.13.10 ity [facility] 4.2.7.2.[place] [id number] Pr dical NAL 059 [facility] 2022-03-09 2022-03-09 Out[facility] [id number] Univers 09:30:00 09:47:03 SENDIL ity [facility] 2022-03-09 2022-03-09 Outpatient R BLAISE [facility] [id number] Univers 09:30:00 09:47:03 SENDIL ity [facility] 2022-03-09 2022-03-09 Outpatient R BLAISE [facility] [id number] Univers 09:30:00 09:30:00 SENDIL ity [facility] 2022-03-08 2022-03-08 Outpatient R ROSEMARY URENA [facility] [id number] Univers 15:30:00 15:59:06 ROSEMARY URENA ity [facility] 2022-03-08 2022-03-08 Outpatient R ROSEMARY URENA [facility] [id number] Univers 15:30:00 15:59:06 ROSEMARY URENA ity [facility] 2022-03-08 2022-03-08 Office Kasia [facility] 1.2.840.114 [id number] Univers 15:30:00 15:59:06 Visit Rosemary EDEN 350.1.13.10 ity of [place].2.[place] [id number] Pr dical NAL 044 [facility] 2022-03-08 2022-03-08 Outpatient R ROSEMARY URENA [facility] [id number] Univers 15:30:00 15:59:06 [facility] 2022-03-05 2022-03-05 Electric Serviceman 2, Adc Lab [facility] 1.2.840.114 [id number] Univers 11:30:00 11:45:00 Visit Rosemary Urena 350.1.13.1 0 ity of [place] 4.2.[place].2.[place] [id number] Pr dical NAL 353 [facility] 2022-03-05 2022-03-05 Office Kasia [facility] 1.2.840.114 [id number] Univers 11:00:00 11:00:00 Visit Rosemary EDEN 350.1.13.10 ity of [place] 4.[place].2.[place] [id number] Pr dical NAL 044 [facility] 2022-03-05 2022-03-05 Outpatient R ROSEMARY URENA [facility] [id number] Univers 11:00:00 10:14:53 ROSEMARY URENA [facility] 2022-03-05 2022-03-05 Outpatient R ROSEMARY URENA [facility] [id number] Univers 11:00:00 10:14:53 [facility] 2022-03-05 2022-03-05 Outpatient R ROSEMARY URENA [facility] [id number] Univers 11:00:00 10:14:53 ROSEMARY URENA [facility] 2021-12-25 2021-12-25 Refowen [facility] 1.2.840.114 [id number] Univers 00:00:00 00:00:00 Marco EDEN 350.1.13.10 i nayana [facility] 4.2.7.2.686 Rufina BRINK [id number] Pr dical [address] 2021-11-24 2021-11-24 Outpatient R CLAIRE [facility] [id number] Univers 13:20:00 13:20:00 MARCO [facility] 2021-11-24 2021-11-24 Outpatient R EMILYZACCEASAROPAL [facility] [id number] Univers 13:20:00 13:20:00 MARCO [facility] 2021-11-24 2021-11-24 Outpatient R CLAIRE [facility] [id number] Univers 13:20:00 13:20:00 MARCO [facility] 2021-11-17 2021-11-17 Outpatient R CLAIRE [facility] [id number] Univers 13:00:00 13:00:00 MARCO [facility] 2021-10-12 2021-10-12 Outpatient R BLAISE [facility] [id number] Univers 10:00:00 10:00:00 SENDIL [facility] 2021-10-12 2021-10-12 Outpatient R BLAISE [facility] [id number] Univers 08:00:00 08:03:00 SENDIL [facility] 2021-10-01 2021-10-01 [facility] [id number] Univers 10:00:00 10:32:45 SENDIL ity [facility] 2021-10-01 2021-10-01 [facility] [id number] Univers 10:00:00 10:32:45 Visit Anna EDEN [id number] ity [facility] [id number] [id number] Pr dical NAL 059 [facility] 2021-10-01 2021-10-01 Outpatient R BLAISE [facility] [id number] Univers 10:00:00 10:32:45 [facility] 2021-10-01 Outpatient R BLAISE [facility] [id number] Univers 10:00:00 10:00:00 SENDIL [facility] 2021-09-24 2021-09-24 Nurse Nurse, [facility] [id number] Univers 14:20:00 14:40:00 [id number] [phone] Pr dicmi NAL 044 [facility] 2021-09-24 2021-09-24 Outpatient R CLAIRE [facility] [id number] Univers 14:20:00 14:25:48 MARCO timmy [facility] 2021-09-24 2021-09-24 Outpatient R CLAIRE [facility] [id number] Univers 14:20:00 14:25:48 MARCO timmy [facility] [place] 2021-09-24 2021-09-24 Outpatient R CLAIRE [facility] [id number] Univers 14:20:00 14:20:00 MARCO timmy [facility] 2021-09-17 2021-09-17 Outpatient R [facility] [id number] Univers 14:20:00 14:20:00 ity [facility] 2021-09-17 2021-09-17 [facility] [id number] Univers 09:00:00 09:13:34 MARCO mcclendon [facility] 2021-09-17 2021-09-17 [facility] [id number] Univers 09:00:00 09:13:34 MARCO mcclendon [facility] 2021-09-17 2021-09-17 Nurse Nurse, [facility] 1.2.840.114 [id number] Univers 09:00:00 09:13:34 Visit Marco CuhrchKRISH 350.1.13.10 ity of [facility] [place] [phone] [address] 2021-09-17 2021-09-17 [facility] [id number] [facility] 09:00:00 09:13:34 MARCO mcclendon [facility] 2021-09-10 2021-09-10 [facility] [id number] Univers 14:20:00 15:26:59 MARCO mcclendon [facility] 2021-09-10 2021-09-10 Nurse Nurse, [facility] 1.2.840.114 [id number] Univers 14:20:00 15:26:59 Visit Claire Marco EDEN 350.1.13.10 [place] [phone] [address] 2021-09-10 2021-09-10 [facility] 1.2.840.114 [id number] Univers 08:40:00 14:51:36 ne Visit Marco EDEN 350.1.13.10 ity of [facility] [place] [phone] [address] 2021-09-10 2021-09-10 [facility] [id number] Univers 08:40:00 14:51:36 MARCO danelle [facility] 2021-09-10 2021-09-10 Telephone [facility] 1.2.840.114 [id number] Univers 00:00:00 00:00:00 Marco EDEN 350.1.13.10 i ty of [facility] 4.[place] [phone] Pr dical NAL 044 [facility] 2021-08-25 2021-08-25 Electric Serviceman Hanny, Adc Lab Main [facility] 1.2.8 40.114 [id number] Univers 17:15:00 17:30:00 Visit Marco Church 350.1.13.10 ity of [facility] 4.[place] [phone] Pr dical NAL 353 [facility] 2021-08-25 2021-08-25 [facility] [id number] Univers 17:15:00 17:15:00 MARCO mcclendon [facility] 2021-08-25 2021-08-25 Office [facility] 1.2.840.114 [id number] Univers 16:00:00 16:55:33 Visit Marco EDEN 350.1.13.10 i [place] [phone] [facility] 044 [facility] 2021-08-25 2021-08-25 [facility] [id number] Univers 16:00:00 16:55:33 MARCO mcclendon [facility] 2021-08-25 2021-08-25 [facility] [id number] Univers 16:00:00 16:00:00 MARCO mcclendon [facility] 2021-08-25 2021-08-25 Orders Doctor GILBERTO 1.2.840.114 [id number] Univers 00:00:00 00:00:00 Only Unassigned, MALOU 350.1.13.10 [place] of [place] [facility] 4.2.7.2.686 Ron as [phone] [address] 2021-07-15 2021-07-15 [facility] [id number] Univers 00:00:00 00:00:00 SENDIL ity [facility] 2021-07-15 2021-07-15 Outpatient R BLAISE [facility] [id number] Univers 00:00:00 00:00:00 SENDIL ity [facility] 2021-06-29 2021-06-29 Outpatient R BLAISE [facility] [id number] Univers 09:30:00 09:40:35 SENDIL ity [facility] 2021-06-29 2021-06-29 Outpatient R BLAISE [facility] [id number] Univers 09:30:00 09:40:35 SENDIL ity [facility] 2021-06-29 2021-06-29 Office [facility] 1.2.840.114 [id number] Univers 08:59:11 09:40:35 Visit Anna EDEN 350.1.13.10 it[place] of [place] 4.2.7.2.[place] [facility] [phone] Pr dical NAL 9 [facility] 2021-06-29 2021-06-29 Orders Doctor GILBERTO 1.2.840.114 [id number] Univers 00:00:00 00:00:00 Only Unassigned, MALOU 350.1.13.10 [facility] 4.2.7.2.686 Ron [phone] [place] [address] [address] 2021-06-22 2021-06-22 Outpatient R BLAISE [facility] [id number] Univers 13:00:00 13:00:00 SENDIL ity [facility] 2021-06-11 2021-06-11 Outpatient R ASHU [facility] [id number] Univers 09:00:00 09:17:07 JELENA tavarestimmy [facility] 2021-06-11 2021-06-11 Office [facility] 1.2.840.114 [id number] Univers 08:35:06 09:17:07 Visit Jelena MACE 350.1.13.10 ity of [place] 4.2.7.2.[place] [facility] [phone] [facility] PRIMARY & [address] [facility] 2021-06-09 2021-06-09 Outpatient R ASAD HERRON [facility] [id number] Univers 14:15:00 14:15:00 ity [facility] 2021-06-04 2021-06-04 Outpatient R ASHU [facility] [id number] Univers 13:45:00 13:45:00 JELENA ity [facility] 2021-06-02 2021-06-02 Outpatient R ASAD HERRON [facility] [id number] Univers 10:30:00 10:30:00 ity [facility] 2021-05-26 2021-05-26 Outpatient R ASAD HERRON [facility] [id number] Univers 09:15:00 09:15:00 ity [facility] 2021-05-22 2021-05-22 Outpatient R BLAISE [facility] [id number] Univers 13:00:00 13:40:09 [facility]-05-22 2021-05-22 Outpatient R BLAISE [facility] [id number] Univers 13:00:00 13:40:09 [facility] 2021-05-22 2021-05-22 Office [facility] 1.2.840.114 [id number] Univers 12:56:18 13:40:09 Visit Anna [place] 350.1.13.10 ity [facility] [place]2.[place].2.[place] [phone] Pr dical nal 059 [facility] 2021-05-22 2021-05-22 [facility] [id number] Univers 13:00:00 13:00:00 [facility] 2021-05-15 2021-05-15 Office [facility] 1.2.840.114 [id number] Univers 10:56:42 12:09:09 Visit Marco Eden 350.1.13.10 i ty [facility] 4.2.7.2.[place] [phone] Pr dical nal 044 [facility] 2021-05-15 2021-05-15 [facility] [id number] Univers 11:20:00 11:20:00 MARCO mcclendon [facility] 2021-02-06 2021-02-06 Office [facility] 1.2.840.114 [id number] Univers 15:59:21 17:01:32 Visit Marco Eden 350.1.13.10 i ty of [place] 4.2.7.2.[place] [phone] [address] 2021-02-06 2021-02-06 Outpatient R [facility] [id number] Univers 16:20:00 16:20:00 MARCO mcclendon [facility] 2021-01-02 2021-01-02 Telephone [facility] 1.2.840.114 [id number] Univers 00:00:00 00:00:00 Marco Eden 350.1.13.10 i ty of [place] 4[place]2.7.2.[place] [phone] [address] 2021-01-02 2021-01-02 Telephone [facility] 1.2.840.114 [id number] 00:00:00 00:00:00 Marco Eden 350.1.13.10 [place] 4.2.7.2.686 Professio [phone] [address] 2021-01-01 2021-01-01 Outpatient R [facility] [id number] Univers 15:59:46 23:59:00 MARCO danelle [facility] 2021-01-01 2021-01-01 [facility] 1.2.840.114 [id number] Univers 15:50:00 23:59:00 Encounter Marco Eden 350.1.13.10 ity of [place].2.[place] Mobile [phone] [address] 2021-01-01 2021-01-01 [facility] 1.2.840.114 [id number] 15:50:00 23:59:00 Encounter Marco Eden 350.1.13.10 [place] 4.2.7.2.686 Mobile [phone] 801 2021-01-01 2021-01-01 Electric Serviceman 2, Adc Lab [facility] 1.2.840.114 [id number] Univers 15:09:59 15:24:59 Visit Marco Church 350.1.13.10 ity of [place].2.[place] [phone] Pr dical [facility] 353 [facility] 2021-01-01 2021-01-01 Office [facility] 1.2.840.114 [id number] Univers 14:12:54 15:07:47 Visit Marco Eden 350.1.13.10 i ty of [place] 4[place].2.[place] [phone] Pr dical [facility] 044 [facility] 2021-01-01 2021-01-01 Office [facility] 1.2.840.114 [id number] 14:12:54 15:07:47 Visit Marco Eden 350.1.13.10 [place] 4.2.7.2.[address] Professio [phone] [address] 2021-01-01 2021-01-01 Outpatient R CLAIRE [facility] [id number] Univers 14:40:00 14:40:00 MARCO timmy [facility] 2021-01-01 2021-01-01 Orders Doctor MACIAS 1.2.840.114 [id number] Univers 00:00:00 00:00:00 Only Unassigned, MALOU 350.1.13.10 [place] of [place] [facility] 4.2.7.2.686 Ron as [phone] [address] 2020-12-17 2020-12-17 Outpatient R ANNALISE [facility] [id number] Univers 08:40:00 08:40:00 NAHID ity [facility] 2020-11-19 2020-11-19 Outpatient [facility] [id number] Univers 17:00:00 17:00:00 ity [facility] 2020-10-03 2020-10-03 Office Claire [facility] 1.2.840.114 [id number] Univers 10:38:45 12:31:25 Visit Marco Eden 350.1.13.10 i ty [facility] 4.2.7.2.[place] [phone] Pr dical nal 044 [facility] 2020-10-03 2020-10-03 Outpatient R [facility] 1031 [id number] Univers 10:40:00 10:40:00 MARCO danelle [facility] 2020-09-30 2020-09-30 Outpatient R [facility] 1029 [id number] Univers 10:40:00 10:40:00 MARCO danelle [facility] 2020-09-26 2020-09-26 [facility] 1.2.840.114 [id number] Univers 08:51:45 23:59:00 Encounter Marco Eden 350.1.13.10 ity [facility] 4.2.7.2.686 [facility] [phone] [address] 2020-09-26 2020-09-26 Outpatient R [facility] [id number] Univers 00:00:00 00:00:00 MARCO danelle [facility] 2020-09-25 2020-09-25 [facility] 1.2.315.202 [id number] Univers 07:55:47 23:59:00 Encounter Pierce Eden 350.1.13.10 ity [facility] 4.2.7.2.686 [facility] [phone] [address] 2020-09-25 2020-09-25 Outpatient PIERCE LIMA [facility] [id number] Univers 00:00:00 00:00:00 PIERCE BALLARD danelle [facility] 2020-09-18 2020-09-18 [facility] 1.2.840.114 [id number] Univers 13:06:11 16:40:55 ne Visit Marco Eden 350.1.13.10 ity [facility] 4.2.7.2.[place] [phone] Pr dical nal 044 [facility] 2020-09-18 2020-09-18 Outpatient R STONE, PIERCE [facility] [id number] Univers 10:00:00 10:00:00 PIERCE BALLARD [facility] 2020-09-18 2020-09-18 Telephone EmilyzacpengAC[facility] 1.2.840.114 [id number] Univers 00:00:00 00:00:00 Marco Eden 350.1.13.10 i ty of [place] [phone] Pr dical nal 231 [facility] 2020-09-18 2020-09-18 Telephone [facility] 1.2.840.114 [id number] Univers 00:00:00 00:00:00 Marco Eden 350.1.13.10 i ty of [place] 4[place].2.[place] [phone] Pr dical nal 044 [facility] 2020-09-15 2020-09-15 Outpatient Debbie PEÑA [facility] [id number] Univers 08:30:00 08:30:00 VIRGINIE timmy [facility] 2020-09-08 2020-09-08 Electric Serviceman 2, Adc Lab [facility] 1.2.840.114 [id number] Univers 11:31:23 11:46:23 Visit Stone, Pierce [place] 350.1.13 .10 ity of [place].2.[place] [phone] Pr dical nal 353 [facility] 2020-09-08 2020-09-08 Outpatient Debbie STONE, PIERCE [facility] [id number] Univers 11:30:00 11:30:00 STONEPIERCE [facility] 2020-09-03 2020-09-03 Telephone Stone [facility] 1.2.840.114 [id number] Univers 00:00:00 00:00:00 Pierce Eden 350.1.13.10 ity of [place].2.[place] [phone] Me dical nal 092 [facility] 2020-09-02 2020-09-02 Outpatient Debbie PEÑA [facility] [id number] Univers 14:30:00 14:30:00 VIRGINIE mcclendon [facility] 2020-09-02 2020-09-02 Electric Serviceman 2, Adc Lab [facility] 1.2.840.114 [id number] Univers 13:45:25 14:00:25 Visit Marco Church 350.1.13.10 ity of [place] 4[place].2.[place] [phone] [facility] 353 [facility] 2020-09-02 2020-09-02 Telephone [facility] 1.2.840.114 [id number] Univers 00:00:00 00:00:00 Pierce Eden 350.1.13.10 ity of [place].7.2.[place] [phone] [facility] 092 [facility] 2020-08-29 2020-08-29 Telephone [facility] 1.2.840.114 [id number] Univers 00:00:00 00:00:00 Marco Eden 350.1.13.10 i ty of [place] 4[place].2.[place] [phone] [facility] 231 [facility] 2020-08-21 2020-08-21 [facility] 1.2.307.522 [id number] Univers 12:53:22 23:59:00 Encounter Pierce Eden 350.1.13.10 ity of [place] 4.2.7.2.[place] Mobile [phone] [facility] [address] [place] 2020-08-21 2020-08-21 Outpatient PIERCE LIMA [facility] [id number] Univers 00:00:00 00:00:00 PIERCE BALLARD [facility] 2020-08-04 2020-08-04 Office Stone [facility] 1.2.840.114 [id number] Univers 13:36:43 15:46:24 Visit Pierce Eden 350.1.13.10 ity of [place] 4[place]2.7.2.[place] [phone] Pr dical nal 092 [facility] 2020-08-04 2020-08-04 Outpatient R PIERCE BALLARD [facility] [id number] Univers 13:40:00 13:40:00 [facility] 2020-08-04 2020-08-04 Orders Doctor GILBERTO 1.2.840.114 [id number] Univers 00:00:00 00:00:00 Only Unassandie, MALOU 350.1.13.10 ity of [facility] 4.2.7.2.686 Ron as [phone] [address] 2020-07-28 2020-07-28 Refill [facility] 1.2.840.114 [id number] Univers 00:00:00 00:00:00 aMrco Eden 350.1.13.10 i ty of [place] 4.2.7.2.[place] [phone] Pr dical nal 044 [facility] 2020-07-23 2020-07-23 [place] [facility] 1.2.840.114 [id number] Univers 00:00:00 00:00:00 Opal Eden 350.1.13.10 ity of [place] 4.2.7.2.[place] [phone] Pr dical nal 231 [facility] 2020-07-17 2020-07-17 Outpatient R CLAIRE [facility] [id number] Univers 00:00:00 00:00:00 MARCO mcclendon [facility] 2020-07-14 2020-07-14 Laboratory Pc, Adc Echo Room 1 - [facility] 1 .2.840.114 [id number] Univers 13:31:18 14:34:05 Only Khoi Jones 350.1.13.10 ity of [place] 4.2.7.2.[place] [phone] Pr dical nal 059 [facility] 2020-07-14 2020-07-14 Outpatient R [facility] [id number] Univers 14:00:00 14:00:00 ity of [facility] 2020-07-03 2020-07-03 Outpatient R [facility] [id number] Univers 14:00:00 14:00:00 [facility] 2020-07-02 2020-07-02 Office [facility] 1.2.840.114 [id number] Univers 11:16:30 12:52:33 Visit Marco Eden 350.1.13.10 i ty of [place] 4[place]2.[place].2.[place] [phone] [address] 2020-07-02 2020-07-02 [facility] [id number] Univers 11:20:00 11:20:00 MARCO timmy [facility] 2020-06-25 2020-06-25 Telephone [facility] 1..840.114 [id number] Univers 00:00:00 00:00:00 Marco Eden 350.1.13.10 i ty of [place] 4[place].2.[place] [phone] [address] 2020-06-18 2020-06-18 Emergency [place], K [facility] 1..840.114 [id number] Univers 12:21:00 14:02:00 Darby Eden 350.1.13.10 i ty of [place] 4.2.7.2.686 [place] Mobile [phone] [address] 2020-06-18 2020-06-18 Office [facility] ..840.114 [id number] Univers 10:01:33 12:17:51 Visit Marco Eden 350.1.13.10 i ty of [place] 4.2.7.2.[place] [phone] [address] 2020-06-18 2020-06-18 Out[facility] [id number] Univers 10:20:00 10:20:00 MARCO mcclednon [facility] 2020-06-18 2020-06-18 Telephone [facility] 1..840.114 [id number] Univers 00:00:00 00:00:00 Marco Rhonda 350.1.13.10 i ty of [place] 4[place].2.[place] [phone] Pr dical [facility] 044 [facility] 2020-06-18 2020-06-18 Orders Doctor GILBERTO 1.2.840.114 [id number] Univers 00:00:00 00:00:00 Only Unassigned, MALOU 350.1.13.10 [place] [facility] 4.2.7.2.686 Ron as [phone] [facility] [address] [place] 2020-06-18 2020-06-18 Letter Doctor GILBERTO 1.2.840.114 [id number] Univers 00:00:00 00:00:00 (Out) Unassigned, MALOU 350.1.13.10 [place] of [place] [facility] 4.2.7.2.686 Ron as [phone] [address] Results Test Description Test Time Test Comments Results Result Comments Source POCT GLUCOSE (AUTOMATED) 2023-02-01 13:10:42 Test Item Value Reference Range Interpretation Comme nts POCT GLU (test code = 6091310122) 228 mg/dL 70-110 H Lab Interpretation (test code = 59062-3) Abnormal [facility] GLUCOSE (AUTOMATED)2023-02-01 13:10:42 Test Item Value Reference Range Interpretation Comments POCT GLU (test code = 4818969820) 228 mg/dL 70-110 H Lab Interpretation (test code = Abnormal 98457-1) [facility] GLUCOSE (AUTOMATED)2023-02-01 13:10:42 Test Item Value Reference Range Interpretation Comments POCT GLU (test code = 9908268339) 228 mg/dL 70-110 H Lab Interpretation (test code = Abnormal 21364-5) [facility], [id number] 07:07:16 Test Item Value Reference Range Interpretation Comments VIT B12 (test code = 284 pg/mL 240-930 [id number]) MODESTO (test code = MODESTO) Biotin has been reported to cause a positive bias, interpret results relative to patient's use of biotin. Lab Interpretation (test Normal code = 57961-8) [facility], [id number] 07:07:16 Test Item Value Reference Range Interpretation Comments VIT B12 (test code = 284 pg/mL 240-930 [id number]) MODESTO (test code = MODESTO) Biotin has been reported to cause a positive bias, interpret results relative to patient's use of biotin. Lab Interpretation (test Normal code = 80404-4) [facility] D, [id number] 07:03:34 Test Item Value Reference Range Interpretation Comments VIT D 25OH (test code = 19 ng/mL 25-80 L 17744-9) MODESTO (test code = MODESTO) Deficiency: <20 ng/mLInsufficiency: 20-24 ng/mLOptimal: 25-80 ng/mL Lab Interpretation (test Abnormal code = 32269-3) [facility], [id number] 07:03:34 Test Item Value Reference Range Interpretation Comments VIT D 25OH (test code = 19 ng/mL 25-80 L 31446-5) MODESTO (test code = MODESTO) Deficiency: <20 ng/mLInsufficiency: 20-24 ng/mLOptimal: 25-80 ng/mL Lab Interpretation (test Abnormal code = 51052-3) [facility]cos[facility]YROID STIMULATING [id number] 22:23:56 Test Item Value Reference Range Interpretation Comments TSH (test code = 2.70 See_Comment [Automated message] [id number]) The system [employer] generated this result transmitted ref erence range: 0.45 - 4 .70 mIU/L. The refe rence range was not u sed to interpret this result as normal/abnor mal. Lab Interpretation (test Normal code = 28945-3) [facility]IMUL[facility] [id number] 22:23:56 Test Item Value Reference Range Interpretation Comments TSH (test code = 2.70 See_Comment [Automated message] [id number]) The system [employer] generated this result transmitted ref erence range: 0.45 - 4 .70 mIU/L. The refe rence range was not u sed to interpret this result as normal/abnor mal. Lab Interpretation (test Normal code = 11341-3) [facility]cos[facility] [id number] 22:10:50 Test Item Value Reference Range Interpretation Comments FREE T4 (test code = 1.14 See_Comment [Autom ated message] [id number]) The system [employer] generated this result transmitted ref erence range: 0.78 - 2 .20 ng/dL:. The ref erence range was not u sed to interpret this result as normal/abnor mal. Lab Interpretation (test Normal code = 05855-9) [facility] [id number] 22:10:50 Test Item Value Reference Range Interpretation Comments FREE T4 (test code = 1.14 See_Comment [Autom ated message] [id number]) The system [employer] generated this result transmitted ref erence range: 0.78 - 2 .20 ng/dL:. The ref erence range was not u sed to interpret this result as normal/abnor mal. Lab Interpretation (test Normal code = 95827-4) [facility] [id number] 22:09:27 Test Item Value Reference Range Interpretation Comments FREE T3 (test code = 6867097833) 3.44 pg/mL 2.77-5.27 Lab Interpretation (test code = Normal 97610-9) [facility] 22:09:27 Test Item Value Reference Range Interpretation Comments FREE T3 (test code = 4326439599) 3.44 pg/mL 2.77-5.27 Lab Interpretation (test code = Normal 68321-8) [facility]cosGLYCOSYLATED HEMOGLOBIN (A1C)2022-11-18 22:04:11 Test Item Value Reference Range Interpretation Comments HGB A1C (test code = 9.0 % 4.0-5.7 H 4548-4) MODESTO (test code = MODESTO) Reference RangesNormal: <5.7%Prediabetes: 5.7 - 6.4%Diabetes: > 6.5% Lab Interpretation (test Abnormal code = 88202-1) [facility]cosGLYCOSYLATED HEMOGLOBIN (A1C)2022-11-18 22:04:11 Test Item Value Reference Range Interpretation Comments HGB A1C (test code = 9.0 % 4.0-5.7 H 4548-4) MODESTO (test code = MODESTO) Reference RangesNormal: <5.7%Prediabetes: 5.7 - 6.4%Diabetes: > 6.5% Lab Interpretation (test Abnormal code = 24292-7) [facility] [id number] 22:02:47 Test Item Value Reference Range Interpretation Comments NT-proBNP (test code = 199 pg/mL <=125 H [id number]) [place] (test code = MO[place]) Biotin has been reported to cause a negative bias, interpret results relative to patient's use of biotin. Lab Interpretation (test Abnormal code = 66456-8) [facility] [id number] 22:02:47 Test Item Value Reference Range Interpretation Comments NT-proBNP (test code = 199 pg/mL <=125 H [id number]) [place] (test code = MO[place]) Biotin has been reported to cause a negative bias, interpret results relative to patient's use of biotin. Lab Interpretation (test Abnormal code = 48047-5) [facility] [place] [facility] ([facility]58)(TOTAL CHOLESTEROL, TRIGLYCERIDES, HDL)2022-11-18 21:55:26 Test Item Value Reference Range Interpretation Comments CHOL (test code = 4296771174) 199 mg/dL 120-200 HDL (test code = 5028399223) 43 mg/dL >=40 HDLC RATIO (test code = 4889440978) 4.6 <=5.0 TRIG (test code = 4701081213) 210 mg/dL 30-170 H LDL CHOL (test code = 96604-8) 114 mg/dL <=160 VLDL (test code = 6877728170) 42 mg/dL 5-60 Lab Interpretation (test code = Abnormal 51314-1) [facility]TOTAL CHOLESTEROL, TRIGLYCERIDES, HDL)2022-11-18 21:55:26 Test Item Value Reference Range Interpretation Comments CHOL (test code = 0976365454) 199 mg/dL 120-200 HDL (test code = 3938559050) 43 mg/dL >=40 HDLC RATIO (test code = 9669149261) 4.6 <=5.0 TRIG (test code = 8152225079) 210 mg/dL 30-170 H LDL CHOL (test code = 02877-5) 114 mg/dL <=160 VLDL (test code = 4401030664) 42 mg/dL 5-60 Lab Interpretation (test code = Abnormal 94350-1) [facility]. METABOLIC PANEL ([id number])2022-11-18 21:55:05 Test Item Value Reference Range Interpretation Comments NA (test code = 140 mmol/L 135-145 0141266674) K (test code = 3.8 mmol/L 3.5-5.0 3850062512) CL (test code = 101 mmol/L 98-108 3151507741) CO2 TOTAL (test code = 27 mmol/L 23-31 5071624975) AGAP (test code = 12 2-16 8992944946) BUN (test code = 27 mg/dL 7-23 H 0361978360) GLUCOSE (test code = 211 mg/dL 70-110 H 1713922930) CREATININE (test code = 1.25 mg/dL 0.60-1.25 3138686340) TOTAL BILI (test code = 0.5 mg/dL 0.1-1.1 7021241647) CALCIUM (test code = 9.7 mg/dL 8.6-10.6 0465133861) T PROTEIN (test code = 7.8 g/dL 6.3-8.2 3660325435) ALBUMIN (test code = 4.5 g/dL 3.5-5.0 9157238635) ALK PHOS (test code = 106 U/L 34-122 6193706007) ALTv (test code = 21 U/L 5-50 1742-6) AST(SGOT) (test code = 23 U/L 13-40 4015994025) eGFR (test code = 57.8 mL/min/1.73m2 8961657267) MODESTO (test code = MODESTO) Association of Glomerular Filtration Rate (GFR) and Staging of Kidney Disease* + --+ --+ ------+| GFR (mL/min/1.73 m2) ?| With Kidney Damage ?| ?Without Kidney Damage+ --------+ --------+ +| ?>90 ?| ?Stage one ?| ? Normal ?+ ---+ ---+ -------+| ?60-89 ?| ?Stage two ?| ? Decreased GFR ? + --+ --+ ------+| ?30-59 ?| ?Stage three ?| ? Stage three ? + --+ --+ ------+| ?15-29 ?| ?Stage four ? | ? Stage four ?+ ---+ ---+ -------+| ?<15 (or dialysis) ? ?| ?Stage five ? | ? Stage five ?+ ---+ ---+ -------+ *Each stage assumes the associated GFR level has been in effect for at least three months. ?Stages 1 to 5, with or without kidney disease, indicate chronic kidney disease. Notes: Determination of stages one and two (with eGFR >59mL/min/1.73 m2) requires estimation of kidney damage for at least three months as defined by structural or functional abnormalities of the kidney, manifested by either:Pathological abnormalities or Markers of kidney damage (including abnormalities in the composition of the blood or urine or abnormalities in imaging tests). Lab Interpretation Abnormal (test code = 41013-8) [facility]. METABOLIC PANEL ([id number])2022-11-18 21:55:05 Test Item Value Reference Range Interpretation Comments NA (test code = 140 mmol/L 135-145 9720660060) K (test code = 3.8 mmol/L 3.5-5.0 0967435630) CL (test code = 101 mmol/L 98-108 3335440818) CO2 TOTAL (test code = 27 mmol/L 23-31 4547652599) AGAP (test code = 12 2-16 1971078288) BUN (test code = 27 mg/dL 7-23 H 1792546094) GLUCOSE (test code = 211 mg/dL 70-110 H 3013341016) CREATININE (test code = 1.25 mg/dL 0.60-1.25 1608190478) TOTAL BILI (test code = 0.5 mg/dL 0.1-1.3 1762492303) CALCIUM (test code = 9.7 mg/dL 8.6-10.6 9604466617) T PROTEIN (test code = 7.8 g/dL 6.3-8.2 7026706384) ALBUMIN (test code = 4.5 g/dL 3.5-5.0 6135576052) ALK PHOS (test code = 106 U/L 34-122 6537883256) ALTv (test code = 21 U/L 5-50 2-6) AST(SGOT) (test code = 23 U/L 13-40 9694196165) eGFR (test code = 57.8 mL/min/1.73m2 8198530521) MODESTO (test code = MODESTO) Association of Glomerular Filtration Rate (GFR) and Staging of Kidney Disease* + --+ --+ ------+| GFR (mL/min/1.73 m2) ?| With Kidney Damage ?| ?Without Kidney Damage+ --------+ --------+ +| ?>90 ?| ?Stage one ?| ? Normal ?+ ---+ ---+ -------+| ?60-89 ?| ?Stage two ?| ? Decreased GFR ? + --+ --+ ------+| ?30-59 ?| ?Stage three ?| ? Stage three ? + --+ --+ ------+| ?15-29 ?| ?Stage four ? | ? Stage four ?+ ---+ ---+ -------+| ?<15 (or dialysis) ? ?| ?Stage five ? | ? Stage five ?+ ---+ ---+ -------+ *Each stage assumes the associated GFR level has been in effect for at least three months. ?Stages 1 to 5, with or without kidney disease, indicate chronic kidney disease. Notes: Determination of stages one and two (with eGFR >59mL/min/1.73 m2) requires estimation of kidney damage for at least three months as defined by structural or functional abnormalities of the kidney, manifested by either:Pathological abnormalities or Markers of kidney damage (including abnormalities in the composition of the blood or urine or abnormalities in imaging tests). Lab Interpretation Abnormal (test code = 40546-2) [facility] WITH [id number] 21:09:58 Test Item Value Reference Range Interpretation Comments WBC (test code = 11.43 See_Comment H [Automated 2248-2) message] The sy stem which generated this result transmitted reference range : 4.20 - 10.70 10*3/?L. The reference range was not used to interpret this result as normal/abnormal . RBC (test code = 4.82 See_Comment [Automated 742-8) message] The sy stem which generated this result transmitted reference range : 4.26 - 5.52 10*6/?L. The reference range was not used to interpret this result as normal/abnormal . HGB (test code = 14.8 g/dL 12.2-16.4 718-7) HCT (test code = 44.5 % 38.4-49.3 4544-3) MCV (test code = 92.3 fL 81.7-95.6 787-2) MCH (test code = 30.7 pg 26.1-32.7 785-6) MCHC (test code = 33.3 g/dL 31.2-35.0 786-4) RDW-SD (test code = 43.9 fL 38.5-51.6 00903-7) RDW-CV (test code = 13.1 % 12.1-15.4 788-0) PLT (test code = 190 See_Comment [Automated 777-3) message] The sy stem which generated this result transmitted reference range : 150 - 328 10*3/ ?L. The reference r chelsea was not used to interpret this result as normal/abnormal . MPV (test code = 9.7 fL 9.8-13.0 L 39370-8) NRBC/100 WBC (test 0.0 See_Comment [Automat ed code = 2728630090) message] The system which generated this result transmitted reference range : 0.0 - 10.0 /100 WBCs. The refer ence range was not u sed to interpret th is result as normal/abnormal . NRBC x10^3 (test code See_Comment [Auto mated = 0863966303) message] The s ystem which generated this result transmitted reference range : 10*3/?L. The reference range was not used to interpret this result as normal/abnormal . GRAN MAT (NEUT) % 57.0 % (test code = 770-8) IMM GRAN % (test code 0.40 % = 2147847346) LYMPH % (test code = 33.3 % 736-9) MONO % (test code = 7.8 % 5905-5) EOS % (test code = 1.2 % 713-8) BASO % (test code = 0.3 % 706-2) GRAN MAT x10^3(ANC) 6.50 10*3/uL 1.99-6.95 (test code = 2257532851) IMM GRAN x10^3 (test 0.05 10*3/uL 0.00-0.06 code = 1613082849) LYMPH x10^3 (test code 3.81 10*3/uL 1.09-3.23 H = 731-0) MONO x10^3 (test code 0.89 10*3/uL 0.36-1.02 = 742-7) EOS x10^3 (test code = 0.14 10*3/uL 0.06-0.53 711-2) BASO x10^3 (test code 0.04 10*3/uL 0.01-0.09 = 704-7) Lab Interpretation Abnormal (test code = 55525-5) [facility] WITH [id number] 21:09:58 Test Item Value Reference Range Interpretation Comments WBC (test code = 11.43 See_Comment H [Automated 9401-2) message] The sy stem which generated this result transmitted reference range : 4.20 - 10.70 10*3/?L. The reference range was not used to interpret this result as normal/abnormal . RBC (test code = 4.82 See_Comment [Automated 257-8) message] The sy stem which generated this result transmitted reference range : 4.26 - 5.52 10*6/?L. The reference range was not used to interpret this result as normal/abnormal . HGB (test code = 14.8 g/dL 12.2-16.4 718-7) HCT (test code = 44.5 % 38.4-49.3 4544-3) MCV (test code = 92.3 fL 81.7-95.6 787-2) MCH (test code = 30.7 pg 26.1-32.7 785-6) MCHC (test code = 33.3 g/dL 31.2-35.0 786-4) RDW-SD (test code = 43.9 fL 38.5-51.6 30279-5) RDW-CV (test code = 13.1 % 12.1-15.4 788-0) PLT (test code = 190 See_Comment [Automated 887-3) message] The sy stem which generated this result transmitted reference range : 150 - 328 10*3/ ?L. The reference r chelsea was not used to interpret this result as normal/abnormal . MPV (test code = 9.7 fL 9.8-13.0 L 78346-6) NRBC/100 WBC (test 0.0 See_Comment [Automat ed code = 4332692431) message] The system which generated this result transmitted reference range : 0.0 - 10.0 /100 WBCs. The refer ence range was not u sed to interpret th is result as normal/abnormal . NRBC x10^3 (test code See_Comment [Auto mated = 2219411391) message] The s ystem which generated this result transmitted reference range : 10*3/?L. The reference range was not used to interpret this result as normal/abnormal . GRAN MAT (NEUT) % 57.0 % (test code = 770-8) IMM GRAN % (test code 0.40 % = 8227339117) LYMPH % (test code = 33.3 % 736-9) MONO % (test code = 7.8 % 5905-5) EOS % (test code = 1.2 % 713-8) BASO % (test code = 0.3 % 706-2) GRAN MAT x10^3(ANC) 6.50 10*3/uL 1.99-6.95 (test code = 6764879264) IMM GRAN x10^3 (test 0.05 10*3/uL 0.00-0.06 code = 1105761700) LYMPH x10^3 (test code 3.81 10*3/uL 1.09-3.23 H = 731-0) MONO x10^3 (test code 0.89 10*3/uL 0.36-1.02 = 742-7) EOS x10^3 (test code = 0.14 10*3/uL 0.06-0.53 711-2) BASO x10^3 (test code 0.04 10*3/uL 0.01-0.09 = 704-7) Lab Interpretation Abnormal (test code = 97262-6) [facility] HEMOGLOBIN A1C [id number] 15:53:00 Test Item Value Reference Range Interpretation Comments POCT HBA1C (test code = 4548-4) 6.2 % 4-6 A Lab Interpretation (test code = Abnormal 73910-8) [facility] [id number] 15:53:00 Test Item Value Reference Range Interpretation Comments POCT HBA1C (test code = 4548-4) 6.2 % 4-6 A Lab Interpretation (test code = Abnormal 48259-0) [facility]"
--- NOTE | 2023-05-17 12:29 | RAD REPORT ---
EXAM DESCRIPTION: CT - Ct Stroke Brain Wo Cont - 05/17/2023 12:19 pm CLINICAL HISTORY: STROKE ALERT COMPARISON: HEAD BRAIN W O CONTRAST dated 03/10/2015; HEAD BRAIN W O CONTRAST dated 02/17/2015 TECHNIQUE: Noncontrast head CT images were obtained without IV contrast. Multiplanar reformats were generated and reviewed. All CT scans are performed using dose optimization technique as appropriate and may include automated exposure control or mA/KV adjustment according to patient size. FINDINGS: No intracranial hemorrhage, mass, or edema. Midline structures are unremarkable. Stable ventricular caliber. Extensive deep white matter hypoattenuation, nonspecific, but suggestive of chronic small vessel isch emic changes. Mild diffuse parenchymal volume loss with asymmetric widening of the right post central sulcus, stable. Foci of the basal ganglia hypodensity are stable, except for the right thalamic focu s of mild hypodensity on axial image 16/34 which appears to be new since 2015. Johnson-white matter diff erentiation is otherwise preserved, without evidence of acute infarct. No abnormal extra-axial fluid collections. Mastoid air cells and visualized portions of the paranasal sinuses are clear. No acute bony findings. IMPRESSION: Right thalamic focus of mild hypodensity, appears to be new since 2014, may indicate a s ubacute or remote infarct. If there is persistent clinical concern for acute ischemia, additional miguel angel luation by brain MRI may be helpful. No other acute findings. Stable chronic findings including presumed sequelae of chronic small vessel ischemic changes as above. The findings were communicated to Vega Brewer on 05/17/2023 at 12:22 hours.
[2023-05-17] MEDS ORDERED: TENECTEPLASE 50 MG/10 ML VIAL IV ONE (12:33)
--- NOTE | 2023-05-17 13:43 | RAD REPORT ---
EXAM DESCRIPTION: RAD - Chest Single View - 05/17/2023 1:24 pm CLINICAL HISTORY: cva Chest pain. COMPARISON: Chest Single View dated 06/03/2020; CHEST PA AND LAT 2 VIEW dated 03/04/2015; CHEST SINGL E VIEW dated 02/17/2015; CHEST SINGLE VIEW dated 03/06/2014 FINDINGS: Portable technique limits examination quality. The lungs are grossly clear. The heart is normal in size. No displaced fractures. IMPRESSION: No acute intrathoracic process suspected.
[2023-05-17 13:45] LABS: Absolute Lymphocytes (CBC) 1.3 K/uL (0.7-4.9); Hematocrit 43.3 % (39.6-49.0); Lymphocytes % 14.7 % (15.3-44.8); MCV 92.7 fL (80-100); MPV 7.7 fL (7.6-11.3); Platelets 182 thou/uL (152-406); RBC Red Blood Cell Count 4.67 M/uL (4.33-5.43)
[2023-05-17] MEDS ORDERED: NA CHLORIDE 0.9% 1,000 ML ONE (14:03)
--- NOTE | 2023-05-17 14:05 | RAD REPORT ---
EXAM DESCRIPTION: CT - Head angio - 05/17/2023 1:40 pm CLINICAL HISTORY: cva Headache, drowsiness, CVA symptomology COMPARISON: Ct Stroke Brain Wo Cont dated 05/17/2023; HEAD BRAIN W O CONTRAST dated 03/10/2015 TECHNIQUE: CT angiography of the head was performed with MIPs. All CT scans are performed using dose optimization technique as appropriate and may include automated exposure control or mA/KV adjustment according to patient size. FINDINGS: No evidence of large vessel occlusion. No evidence of aneurysm is detected. No flow-limiti ng stenosis or vascular malformation identified. Antegrade flow is seen in the vertebral arteries. The vertebral arteries are codominant. The visualized dural venous sinuses are patent. IMPRESSION: No significant flow abnormality is detected.
[2023-05-17 14:06] LABS: ALT/SGPT 25 U/L (16-61); AST/SGOT 22 U/L (15-37); Alkaline Phosphatase 92 U/L (45-117); BUN Blood Urea Nitrogen 23 mg/dL (7-18); Bicarbonate 27 mEq/L (21-32); Bilirubin Direct < 0.1 mg/dL (0-0.2); Bilirubin Indirect, Calculated ND mg/dL (0.2-0.8); Bilirubin Total 0.5 mg/dL (0.2-1.0); Glomerular Filtration Rate 41 ml/min (=/>90); Glucose Level 222 mg/dL (74-106); Magnesium 2.2 mg/dL (1.6-2.4); Protein, Total 7.6 g/dL (6.4-8.2); Sodium Level 138 mEq/L (136-145)
--- NOTE | 2023-05-17 14:15 | RAD REPORT ---
EXAM DESCRIPTION: CT - Neck Angio - 05/17/2023 1:40 pm CLINICAL HISTORY: cva Headache, drowsiness, CVA symptomology COMPARISON: Head C Spine Mpr Wo Con dated 12/14/2021 TECHNIQUE: CT angiography of the neck vessels was performed with MIPs. All CT scans are performed using dose optimization technique as appropriate and may include automated exposure control or mA/KV adjustment according to patient size. FINDINGS: A left aortic arch is identified with normal three vessel configuration of the great vesse ls. Mild multifocal plaquing is seen both common carotid arteries. Moderate hard plaque is seen involving both carotid bulbs. This results in moderate stenosis of 50-70 % bilaterally. Normal flow is seen within both vertebral arteries. Mild bilateral vertebral atherosclerosis seen. IMPRESSION: Moderate hard plaquing is seen in both proximal internal carotid arteries. Findings result in moderate stenosis of 50-70% bilaterally based on NASCET criteria. NASCET criteria used. Mild 0-49% stenosis Moderate 50-69% stenosis Severe 70-99% stenosis
[2023-05-17 14:26] LABS: Protime INR 1.01
--- NOTE | 2023-05-17 15:14 | ER ---
Nurse's Notes [facility] Name: Jabier King Age: 67 yrs Sex: Male : 1955 Arrival Date: 05/17/2023 Time: 12:11 Bed 4 Private MD: Diagnosis: Cerebrovascular accident;Bilateral carotid stenosis Presentation: 05/17 12:12 Chief complaint: EMS states: toned out for s/s of possible stroke with hx of prior kc6 stroke. LKW 1135. BGL en route 265. 4mg zofran given route for nausea. Coronavirus screen: At this time, the client does not indicate any symptoms associated with coronavirus-19. Ebola Screen: No symptoms or risks identified at this time. 12:12 Method Of Arrival: EMS: [facility] 12:12 An acute neurological deficit is present. The charge nurse has been notified. Initial [facility] Sepsis Screen: Does the patient meet any 2 criteria? No. Patient's initial sepsis screen is negative. Does the patient have a suspected source of infection? No. Patient's initial sepsis screen is negative. Risk Assessment: Do you want to hurt yourself or someone else? Patient reports no desire to harm self or others. Onset of symptoms was May 17, 2023 at 11:35. 12:12 Acuity: TARA 2 kc6 Triage Assessment: 12:12 The onset of the patients symptoms was May 17, 2023 at 11:35. General: Appears in kc6 no apparent distress. comfortable, Behavior is calm, cooperative, appropriate for age. Pain: Denies pain. EENT: No signs and/or symptoms were reported regarding the EENT system. Neuro: Level of Consciousness is awake, alert, obeys commands, Oriented to person, place, time, situation, Appropriate for age Parking Enforcement Officer are equal bilaterally Moves all extremities. Full function Gait is steady, Speech is slurred, Facial droop on right, Facial symmetry: tongue is midline, Pupils are PERRLA, Intact Reports weakness in left arm and right leg. Cardiovascular: Denies chest pain, Heart tones S1 S2 present Capillary refill < 3 seconds Rhythm is sinus rhythm. Respiratory: Airway is patent Trachea midline Respiratory effort is even, unlabored, Respiratory pattern is regular, symmetrical, Denies shortness of breath. GI: Reports nausea, Patient currently denies vomiting. : No signs and/or symptoms were reported regarding the genitourinary system. Derm: No signs and/or symptoms reported regarding the dermatologic system. Skin is intact, is healthy with good turgor, Skin is pink, warm \T\ dry. Musculoskeletal: No signs and/or symptoms reported regarding the musculoskeletal system. Circulation, motion, and sensation intact. Capillary refill < 3 seconds, Range of motion: intact in all extremities. Stroke Activation: Symptom onset < 3 hours Physician: Stroke Attending; Name: ; Notified At: ; Arrived At: Physician: Chief Stroke Resident; Name: ; Notified At: ; Arrived At: Physician: Stroke Resident; Name: ; Notified At: ; Arrived At: Physician: ED Attending; Name: ; Notified At: ; Arrived At: Physician: ED Resident; Name: ; Notified At: ; Arrived At: Historical: - Allergies: 12:12 Bactrim; kc6 - PMHx: 12:12 CVA; Diabetes - NIDDM; High Cholesterol; Hypertension; kc6 - PSHx: 12:12 None; kc6 - Immunization history:: Adult Immunizations up to date. - Social history:: Smoking status: Patient reports the use of cigarette tobacco products, smokes one-half pack cigarettes per day. - Family history:: not pertinent. Screenin:12 [facility] ED Fall Risk Assessment (Adult) History of falling in the last 3 months, kc6 including since admission No falls in past 3 months (0 pts) Confusion or Disorientation No (0 pts) Intoxicated or Sedated No (0 pts) Impaired Gait No (0 pts) Mobility Assist Device Used No (0 pt) Altered Elimination No (0 pt) Score/Fall Risk Level 0 - 2 = Low Risk. Abuse screen: Denies threats or abuse. Denies injuries from another. Nutritional screening: No deficits noted. Tuberculosis screening: No symptoms or risk factors identified. Assessment: 12:12 VAN Scoring: Arm Drift: Patients demonstrates NO arm weakness. Patient is VAN Negative. kc6 TNKase (Tenecteplase) Screening: Indications: Definite evidence of stroke, ischemic, embolic, or hypertensive: Yes. Treatment will start within 4.5 hours onset of symptoms: Yes. No evidence of intracranial hemorrhage or CT of head and no evidence of peripheral hemorrhage or recent CVA: Yes. Consent for thrombolytic therapy: Yes. 12:12 Reassessment: please see triage assessment. [facility] 12:25 Reassessment: Consent for TNK administration signed by pt's . . aa5 13:01 Reassessment: Patient appears in no apparent distress at this time. No changes from [facility] previously documented assessment. Patient and/or family updated on plan of care and expected duration. Pain level reassessed. Patient is alert, oriented x 3, equal unlabored respirations, skin warm/dry/pink. Patient denies pain at this time. Patient states feeling better. Patient states symptoms have improved. 13:48 Reassessment: Patient appears in no apparent distress at this time. No changes from 6 previously documented assessment. Patient and/or family updated on plan of care and expected duration. Pain level reassessed. Patient is alert, oriented x 3, equal unlabored respirations, skin warm/dry/pink. Patient denies pain at this time. Patient states feeling better. Patient states symptoms have improved. 14:43 Reassessment: Patient appears in no apparent distress at this time. No changes from [facility] previously documented assessment. Patient and/or family updated on plan of care and expected duration. Pain level reassessed. Patient is alert, oriented x 3, equal unlabored respirations, skin warm/dry/pink. 15:43 Reassessment: Patient appears in no apparent distress at this time. No changes from 6 previously documented assessment. Patient and/or family updated on plan of care and expected duration. Pain level reassessed. Patient is alert, oriented x 3, equal unlabored respirations, skin warm/dry/pink. 16:14 Reassessment: Patient appears in no apparent distress at this time. No changes from [facility] previously documented assessment. Patient and/or family updated on plan of care and expected duration. Pain level reassessed. Patient is alert, oriented x 3, equal unlabored respirations, skin warm/dry/pink. Vital Signs: 12:12 BP 113 / 71; Pulse 77; Resp 18 S; Temp 98.7(O); Pulse Ox 98% on R/A; Weight 84.82 kg kc6 (M); Height 5 ft. 5 in. (R); Pain 0/10; 12:57 BP 105 / 71; Pulse 67; Resp 14 S; Pulse Ox 95% on R/A; kc6 13:48 BP 115 / 73; Pulse 67; Resp 16 S; Pulse Ox 98% on R/A; kc6 14:43 BP 121 / 77; Pulse 66; Resp 16 S; Pulse Ox 96% on R/A; kc6 16:14 BP 97 / 74; Pulse 68; Resp 17 S; Pulse Ox 98% on R/A; kc6 12:12 Body Mass Index 31.12 (84.82 kg, 165.1 cm) kc6 12:12 Pain Scale: Adult kc6 NIH Stroke Scale Scores: 12:12 NIHSS Score: 2 kc6 15:14 NIHSS Score: 6 rt ED Course: 12:12 Patient maintains SpO2 saturation greater than 95% on room air. kc6 12:12 Arm band placed on. kc6 12:12 Patient has correct armband on for positive identification. Placed in gown. Bed in low kc6 position. Call light in reach. Side rails up X2. Adult w/ patient. Client placed on continuous cardiac and pulse oximetry monitoring. NIBP monitoring applied. poultry scalder on. 12:14 Patient arrived in ED. rt 12:14 Vega Brewer MD is Attending Physician. rt 12:18 CT Stroke Brain w/o Contrast In Process Unspecified. EDMS 12:25 Initial lab(s) drawn, by me, sent to lab. aa5 12:25 Missed attempt(s): 18 gauge in left antecubital area. Bleeding controlled, band aid aa5 applied, catheter tip intact. 12:31 Nurys Riley, RN is Primary Nurse. kc6 12:31 Inserted saline lock: 22 gauge in left forearm, using aseptic technique. aa5 12:34 Triage completed. kc6 12:36 Basic Metabolic Panel Sent. ld1 12:36 CBC with Diff Sent. ld1 12:36 Hepatic Function Sent. ld1 12:36 High Sensitivity Troponin Sent. ld1 12:36 Magnesium Sent. ld1 12:36 Protime (+inr) Sent. ld1 12:36 Ptt, Activated Sent. ld1 13:26 Stroke CXR 1 View In Process Unspecified. EDMS 13:41 CT Head Angio In Process Unspecified. EDMS 13:41 CT Neck Angio In Process Unspecified. EDMS 14:38 initiated transfer to [facility]. bd 16:36 No provider procedures requiring assistance completed. Patient transferred, IV remains kc6 in place. Administered Medications: 12:30 Drug: TNK FOR STROKE - Tenecteplase IV 0.25 mg/kg IV at per protocol once; MAX ld1 DOSE 25 mg, IVP over 5 seconds {Co-Signature: kc6 (Nurys Riley RN).} Route: IV; Rate: per protocol; Site: right hand; 13:30 Follow up: Response: No adverse reaction; IV Status: Completed infusion; IV Intake: kc6 4.2ml 13:56 Drug: NS 0.9% IV 1000 ml IV at 1 bolus Per protocol; 1000 mL bolus Route: IV; Rate: 1 kc6 bolus; Site: right hand; 16:13 Follow up: Response: No adverse reaction; IV Status: Completed infusion; IV Intake: kc6 1000ml Medication: 16:37 VIS not applicable for this client. kc6 Point of Care Testing: Blood Glucose: 12:12 Blood Glucose: 265 mg/dL; kc6 Ranges: Intake: 13:30 IV: 4ml; Total: 4ml. kc6 16:13 IV: 1000ml; Total: 1004ml. kc6 Outcome: 15:14 ER care complete, transfer ordered by MD. rt 16:36 Transferred by ground EMS [facility]. to [facility], Transfer form kc6 completed. Note: report called to CIARA Paulino 16:36 Condition: improved 16:36 Instructed on the need for transfer, 16:37 Patient left the ED. kc6 NIH Stroke Scale - NIH Stroke Score Date: 05/17/2023 Time: 12:12 Total Score = 2 10. Dysarthria (speech clarity - read or repeat words) - 0(Normal) 11. Extinction and Inattention (visual/tactile/auditory/spatial/personal) - 0(No abnormality) 1a. Level of Consciousness (LOC) - 0(Alert) 1b. Level of Consciousness (LOC) (Month \T\ Age) - 0(Both) 1c. LOC Commands (Open \T\ Closes Eyes/[employer] Worker) - 0(Both) 2. Best Gaze (Lateral Gaze Paresis) - 0(Normal) 3. Visual Field Loss - 0(No visual loss) 4. Facial Palsy - 1(Minor Paralysis) 5a. Left Arm: Motor (10-second hold) - 0(No drift) 5b. Right Arm: Motor (10-second hold) - 0(No drift) 6a. Left Leg: Motor (5-second hold - always test supine) - 0(No drift) 6b. Right Leg: Motor (5-second hold - always test supine) - 0(No drift) 7. Limb Ataxia (finger/nose \T\ heel/marion - test with eyes open) - 0(Absent) 8. Sensory Loss (pinprick arms/legs/face) - 0(Normal) 9. Best Language: Aphasia (description/naming/reading) - 1(Mild to moderate aphasia) Initials: kc6 NIH Stroke Scale - NIH Stroke Score Date: 05/17/2023 Time: 15:14 Total Score = 6 10. Dysarthria (speech clarity - read or repeat words) - 1(Mild to Moderate) 11. Extinction and Inattention (visual/tactile/auditory/spatial/personal) - 0(No abnormality) 1a. Level of Consciousness (LOC) - 0(Alert) 1b. Level of Consciousness (LOC) (Month \T\ Age) - 0(Both) 1c. LOC Commands (Open \T\ Closes Eyes/[employer] Worker) - 0(Both) 2. Best Gaze (Lateral Gaze Paresis) - 0(Normal) 3. Visual Field Loss - 0(No visual loss) 4. Facial Palsy - 2(Partial paralysis) 5a. Left Arm: Motor (10-second hold) - 0(No drift) 5b. Right Arm: Motor (10-second hold) - 1(Drift) 6a. Left Leg: Motor (5-second hold - always test supine) - 0(No drift) 6b. Right Leg: Motor (5-second hold - always test supine) - 1(Drift) 7. Limb Ataxia (finger/nose \T\ heel/marion - test with eyes open) - 0(Absent) 8. Sensory Loss (pinprick arms/legs/face) - 1(Mild to moderate loss) 9. Best Language: Aphasia (description/naming/reading) - 0(No aphasia) Initials: rt Signatures: Dispatcher [employer] Yamilex Barrett Audri, RN RN aa5 Rochelle Man RN RN ld1 Nurys Riley RN RN kc6 Vega Brewer MD MD rt Nurys Riley RN kc6 Corrections: (The following items were deleted from the chart) 13:00 12:12 Chief complaint: EMS states: toned out for s/s of possible stroke with hx kc6 of prior stroke. LKW 1135. BGL en route 265. 4mg zofran given route for nausea. kc6 13:01 12:12 Neuro: Level of Consciousness is awake, alert, obeys commands, Oriented kc6 to person, place, time, situation, Appropriate for age Parking Enforcement Officer are weak bilaterally Moves all extremities. Gait is steady, Speech is slurred, Facial droop on left, Pupils are PERRLA, Intact Reports weakness in left arm and right leg kc6
--- NOTE | 2023-05-17 15:15 | EDPHYS ---
Physician Documentation [facility] Name: Jabier King Age: 67 yrs Sex: Male : 1955 Arrival Date: 05/17/2023 Time: 12:11 Bed 4 Private MD: ED Physician Vega Brewer HPI: 05/17 13:35 This 67 yrs old Black Male presents to ER via EMS with complaints of S/S of Possible rt Stroke. 13:35 Patient presents to the ED with signs and symptoms of possible stroke. The patient rt developed a right-sided facial droop with right-sided weakness and numbness. Last seen normal was about 1 hour prior to arrival. EMS was called. Denies any pain, trauma. Denies ever having a brain hemorrhage, denies being on blood thinners. Denies other acute complaints at this time, symptoms are severe in severity, no other aggravating or alleviating factors.. Historical: - Allergies: 12:12 Bactrim; kc6 - PMHx: 12:12 CVA; Diabetes - NIDDM; High Cholesterol; Hypertension; kc6 - PSHx: 12:12 None; kc6 - Immunization history:: Adult Immunizations up to date. - Social history:: Smoking status: Patient reports the use of cigarette tobacco products, smokes one-half pack cigarettes per day. - Family history:: not pertinent. ROS: 13:35 Constitutional: Negative for fever, chills, and weight loss, Cardiovascular: Negative rt for chest pain, palpitations, and edema, Respiratory: Negative for shortness of breath, cough, wheezing, and pleuritic chest pain, Abdomen/GI: Negative for abdominal pain, nausea, vomiting, diarrhea, and constipation, MS/Extremity: Negative for injury and deformity, Skin: Negative for injury, rash, and discoloration, Psych: Negative for depression, anxiety, suicide ideation, homicidal ideation, and hallucinations, 13:35 Neuro: Positive for Weakness, numbness, dysarthria, Exam: 13:35 Radiologist reports: No hemorrhage rt 13:35 Head/Face: Normocephalic, atraumatic. Neck: Trachea midline, no thyromegaly or masses palpated, and no cervical lymphadenopathy. Supple, full range of motion without nuchal rigidity, or vertebral point tenderness. No Meningismus. Chest/axilla: Normal chest wall appearance and motion. Nontender with no deformity. No lesions are appreciated. Cardiovascular: Regular rate and rhythm with a normal S1 and S2. No gallops, murmurs, or rubs. Normal PMI, no JVD. No pulse deficits. Respiratory: Lungs have equal breath sounds bilaterally, clear to auscultation and percussion. No rales, rhonchi or wheezes noted. No increased work of breathing, no retractions or nasal flaring. Abdomen/GI: Soft, non-tender, with normal bowel sounds. No distension or tympany. No guarding or rebound. No evidence of tenderness throughout. Skin: Warm, dry with normal turgor. Normal color with no rashes, no lesions, and no evidence of cellulitis. MS/ Extremity: Pulses equal, no cyanosis. Neurovascular intact. Full, normal range of motion. Psych: Awake, alert, with orientation to person, place and time. Behavior, mood, and affect are within normal limits. 13:35 Eyes: Pupils midline, extraocular muscles intact, no visual field deficits. 13:35 ECG was reviewed by the Attending Physician. 13:35 Neuro: Right-sided facial droop, dysarthria noted, no aphasia, awake, alert, oriented. No other cranial nerve deficits, drift in right upper and right lower extremity, no sensory deficits, Vital Signs: 12:12 BP 113 / 71; Pulse 77; Resp 18 S; Temp 98.7(O); Pulse Ox 98% on R/A; Weight 84.82 kg kc6 (M); Height 5 ft. 5 in. (R); Pain 0/10; 12:57 BP 105 / 71; Pulse 67; Resp 14 S; Pulse Ox 95% on R/A; kc6 13:48 BP 115 / 73; Pulse 67; Resp 16 S; Pulse Ox 98% on R/A; kc6 14:43 BP 121 / 77; Pulse 66; Resp 16 S; Pulse Ox 96% on R/A; kc6 16:14 BP 97 / 74; Pulse 68; Resp 17 S; Pulse Ox 98% on R/A; kc6 12:12 Body Mass Index 31.12 (84.82 kg, 165.1 cm) [facility] 12:12 Pain Scale: Adult kc6 NIH Stroke Scale Scores: 12:12 NIHSS Score: 2 kc6 15:14 NIHSS Score: 6 rt MDM: 12:14 Patient medically screened. rt 15:11 Differential diagnosis: CVA, TIA, Intracranial hemorrhage. Data reviewed: vital signs, rt nurses notes, lab test result(s), EKG, radiologic studies. Consideration of Admission/Observation Escalation of care including admission/observation considered. Discussed with neurology, given carotid stenosis bilaterally, states that patient likely to benefit from transfer for higher level of care.. Management of patient was discussed with the following: Epic Trainer: Discussed with neurology, states that patient should be transferred for higher level of care. I considered the following discharge prescriptions or medication management in the emergency department Medications were administered in the Emergency Department. See MAR. Independent interpretation of the following test(s) in the Emergency Department CT Scan: My interpretation is No hemorrhage seen on my interpretation of the CT scan images. Discussion of test interpretation with radiology: I had a discussion with radiology regarding a test interpretation. No acute hemorrhage. Care significantly affected by the following chronic conditions: Diabetes. Counseling: I had a detailed discussion with the patient and/or guardian regarding the historical points, exam findings, and any diagnostic results supporting the discharge/admit diagnosis, lab results, radiology results, the need to transfer to another facility. Response to treatment: the patient's symptoms have markedly improved after treatment. 05/17 12:16 Order name: Basic Metabolic Panel; Complete Time: 14:22 rt 05/17 12:16 Order name: CBC with Diff; Complete Time: 14:22 rt 05/17 12:16 Order name: Hepatic Function; Complete Time: 14:22 rt 05/17 12:16 Order name: High Sensitivity Troponin; Complete Time: 14:22 rt 05/17 12:16 Order name: Magnesium; Complete Time: 14:22 rt 05/17 12:16 Order name: Protime (+inr); Complete Time: 14:27 rt 05/17 12:16 Order name: Ptt, Activated; Complete Time: 14:27 rt 05/17 12:34 Order name: Glucose, Ancillary Testing; Complete Time: 14:22 EDMS 05/17 13:55 Order name: CREATININE WHOLE BLOOD; Complete Time: 14:22 EDMS 05/17 12:16 Order name: CT Stroke Brain w/o Contrast; Complete Time: 14:22 rt 05/17 12:16 Order name: Stroke CXR 1 View; Complete Time: 14:22 rt 05/17 12:16 Order name: CT Head Angio; Complete Time: 14:22 rt 05/17 12:16 Order name: CT Neck Angio; Complete Time: 14:22 rt 05/17 12:16 Order name: EKG; Complete Time: 12:16 rt 05/17 12:16 Order name: Accucheck; Complete Time: 12:31 rt 05/17 12:16 Order name: Cardiac monitoring; Complete Time: 12:31 rt 05/17 12:16 Order name: EKG - Nurse/Tech; Complete Time: 12:31 rt 05/17 12:16 Order name: IV Saline Lock; Complete Time: 12:31 rt 05/17 12:16 Order name: Labs collected and sent; Complete Time: 12:31 rt 05/17 12:16 Order name: NPO; Complete Time: 12:31 rt 05/17 12:16 Order name: O2 Per Protocol; Complete Time: 12:31 rt 05/17 12:16 Order name: O2 Sat Monitoring; Complete Time: 12:31 rt 05/17 12:16 Order name: Stroke Swallow Screen; Complete Time: 12:32 rt EC:35 Rate is 72 beats/min. Rhythm is regular, Normal Sinus Rhythm. QRS [place] is Normal. [place] rt interval is normal. QRS interval is normal. QT interval is normal. No Q waves. Interpreted by me. Administered Medications: 12:30 Drug: TNK FOR STROKE - Tenecteplase IV 0.25 mg/kg IV at per protocol once; MAX ld1 DOSE 25 mg, IVP over 5 seconds {Co-Signature: kc6 (Nurys Riley RN).} Route: IV; Rate: per protocol; Site: right hand; 13:30 Follow up: Response: No adverse reaction; IV Status: Completed infusion; IV Intake: kc6 4.2ml 13:56 Drug: NS 0.9% IV 1000 ml IV at 1 bolus Per protocol; 1000 mL bolus Route: IV; Rate: 1 kc6 bolus; Site: right hand; 16:13 Follow up: Response: No adverse reaction; IV Status: Completed infusion; IV Intake: kc6 1000ml Point of Care Testing: Blood Glucose: 12:12 Blood Glucose: 265 mg/dL; kc6 Ranges: Critical Glucose Levels:Adult <50 mg/dl or >400 mg/dl <40 mg/dl or >180 mg/dl Disposition Summary: 05/17/23 15:14 Transfer Ordered Notes: Transfer Location: [facility] rt Reason: Higher level of care rt Condition: Fair rt Problem: new rt Symptoms: have improved rt Accepting Physician: (05/17/23 16:37) kc6 Diagnosis - Cerebrovascular accident rt - Bilateral carotid stenosis rt Discharge Instructions: - Discharge Summary Sheet rt Forms: - Medication Reconciliation Form rt - SBAR form rt Critical care time excluding procedures: 13:49 Critical care time: Bedside Care: 30 minutes, Consultation: 5 minutes. Total time: 35 rt minutes NIH Stroke Scale - NIH Stroke Score Date: 05/17/2023 Time: 12:12 Total Score = 2 10. Dysarthria (speech clarity - read or repeat words) - 0(Normal) 11. Extinction and Inattention (visual/tactile/auditory/spatial/personal) - 0(No abnormality) 1a. Level of Consciousness (LOC) - 0(Alert) 1b. Level of Consciousness (LOC) (Month \T\ Age) - 0(Both) 1c. LOC Commands (Open \T\ Closes Eyes/Corporate Director Of Pharmacy) - 0(Both) 2. Best Gaze (Lateral Gaze Paresis) - 0(Normal) 3. Visual Field Loss - 0(No visual loss) 4. Facial Palsy - 1(Minor Paralysis) 5a. Left Arm: Motor (10-second hold) - 0(No drift) 5b. Right Arm: Motor (10-second hold) - 0(No drift) 6a. Left Leg: Motor (5-second hold - always test supine) - 0(No drift) 6b. Right Leg: Motor (5-second hold - always test supine) - 0(No drift) 7. Limb Ataxia (finger/nose \T\ heel/marion - test with eyes open) - 0(Absent) 8. Sensory Loss (pinprick arms/legs/face) - 0(Normal) 9. Best Language: Aphasia (description/naming/reading) - 1(Mild to moderate aphasia) Initials: kc6 NIH Stroke Scale - NIH Stroke Score Date: 05/17/2023 Time: 15:14 Total Score = 6 10. Dysarthria (speech clarity - read or repeat words) - 1(Mild to Moderate) 11. Extinction and Inattention (visual/tactile/auditory/spatial/personal) - 0(No abnormality) 1a. Level of Consciousness (LOC) - 0(Alert) 1b. Level of Consciousness (LOC) (Month \T\ Age) - 0(Both) 1c. LOC Commands (Open \T\ Closes Eyes/Corporate Director Of Pharmacy) - 0(Both) 2. Best Gaze (Lateral Gaze Paresis) - 0(Normal) 3. Visual Field Loss - 0(No visual loss) 4. Facial Palsy - 2(Partial paralysis) 5a. Left Arm: Motor (10-second hold) - 0(No drift) 5b. Right Arm: Motor (10-second hold) - 1(Drift) 6a. Left Leg: Motor (5-second hold - always test supine) - 0(No drift) 6b. Right Leg: Motor (5-second hold - always test supine) - 1(Drift) 7. Limb Ataxia (finger/nose \T\ heel/marion - test with eyes open) - 0(Absent) 8. Sensory Loss (pinprick arms/legs/face) - 1(Mild to moderate loss) 9. Best Language: Aphasia (description/naming/reading) - 0(No aphasia) Initials: rt Signatures: Dispatcher [employer] EDMS Rochelle Man RN RN ld1 Nurys Riley RN RN kc6 Vega Brewer MD MD rt Nurys Riley RN kc6 Corrections: (The following items were deleted from the chart) 16:37 15:14 rt kc6
[2023-05-17 17:09] VITALS: TEMP 98.7
[2023-05-17 17:22] VITALS: BP 97/74; O2SAT 98
--- NOTE | 2023-05-18 16:40 | EKG ---
Test Date: 2023-05-17 Test Time: 12:35:27 Support Worker: LESLIE MEASUREMENT RESULTS: Intervals: Rate: 72 NE: 166 QRSD: 72 QT: 446 QTc: 488 [place]: P: 49 NE: 166 QRS: 66 T: -3 INTERPRETIVE STATEMENTS: Normal sinus rhythm T wave abnormality, consider inferolateral ischemia Prolonged QT Abnormal ECG Compared to ECG 06/03/2020 13:19:12 T-wave abnormality now present Possible ischemia now present Prolonged QT interval now present Electronically Signed On 05-18-23 16:38:26 CDT by Fritz Higgins
== END 2023-05-17 16:37 | disposition short-term general hospital (02) ==
LOC: ER 12:11
DX: I63.9 Cerebral infarction, unspecified (principal); I65.23 Occlusion and stenosis of bilateral carotid arteries; I10 Essential (primary) hypertension; R29.706 NIHSS score 6; F17.210 Nicotine dependence, cigarettes, uncomplicated; Z88.1 Allergy status to other antibiotic agents; Z86.73 Personal history of transient ischemic attack (TIA), and cerebral infarction without residual deficits
CPT/HCPCS: 96365; 96361; 92977; 93005; 85025; 80048; 36415; 83735; 85610; 82565; 82947; 80076; 85730; 84484; 70496; 70498; 70450; 71045; 99291; 99292; Q9967; J3101; J7030

== ENCOUNTER 2023-05-31 23:05 | Inpatient (IN) | payer MEDICARE, OTHER, SELFPAY ==
--- OUTSIDE RECORDS SUMMARY | 2023-05-31 23:24 | XMS REPORT | Continuity of Care Document ---
:1955 Author Organization [facility] t Address [address] [place] [address] [place] [id number] Care Team Providers Name Role Phone Marco Church MD Primary Care Physician YASEMIN OREILLY I Attending Clinician Unavailable MARCO CHURCH Attending Clinician Unavailable 2, [facility] Attending Clinician Unavailable Marco Church MD Attending Clinician Yasemin Oreilly MD, I Attending Clinician Flory Sparrow MD Attending Clinician Irene Esquivel MD Attending Clinician IRENE ESQUIVEL Attending Clinician Unavailable VIRGINIE PEÑA Attending Clinician Unavailable Virginie Peña MD Attending Clinician Doctor Unassigned, [place] Attending Clinician Unavailable DIANA MIGUEL Attending Clinician Unavailable DIANA MIGUEL Attending Clinician Unavailable Joelle Rosas CRNA Attending Clinician Flora Quinones MD Attending Clinician Javed Ovalle CRNA Attending Clinician ANNA WELSHHDevan Attending Clinician Unavailable Anna Welsh MD Attending Clinician Kathy Song Attending Clinician KATHY JIMENEZ Attending Clinician Unavailable KATY KNOTT Attending Clinician Unavailable PIERCE BALLARD Attending Clinician Unavailable PIERCE BALLARD Attending Clinician Unavailable JAMES NASH Attending Clinician Unavailable Fallon Kay PT Attending Clinician Unavailable James Nash MD Attending Clinician JELENA WAKEFIELD Attending Clinician Unavailable NATI URENA Attending Clinician Unavailable NATI URENA Attending Clinician Unavailable Nurse, [facility] Fam Attending Clinician Unavailable Pob, [facility] Main Attending Clinician Unavailable Jelena Wakefield OD Attending Clinician ASAD HERRON Attending Clinician Unavailable NAHID WOODY Attending Clinician Unavailable Pierce Ballard MD Attending Clinician Opal Hurt MD Attending Clinician [phone] Pc, [facility] Echo Room 1 - Attending Clinician Unavailable Khoi Jones MD Attending Clinician RomeAmarilys Clemente Attending Clinician YASEMIN OREILLY I Admitting Clinician Unavailable VIRGINIE PEÑA Admitting Clinician Unavailable Virginie Peña MD Admitting Clinician Payers Payer Name Policy Type Policy Number Effective Date Expiration Date [place] kate MEDICARE PART B [id number] 2021 00:00:00 [facility] [id number] 2023 PLAN 00:00:00 [place]ICAID OF [place] [id number] 2020 00:00:00 Problems Condition Condition Condition Status Onset Resolution Last Treating Co mments Source Name Details Category Date Date Treatment Clinician Date Nicotine Nicotine Disease Recurre 2022-[address] [facility] use use nce 0-05 [facility] disorder disorder 00:[facility]: Medica l 00 Center Intracrani Intracrani Disease Active 2022-[address] al al 0-05 [facility] hemorrhage hemorrhage 00:00: Me dical 00 Center Pancreatic Pancreatic Disease Recurre 2022-[address] [facility] [address] insufficie insufficie nce 0-04 [facility] ncy ncy 00:00: Medical 00 Center BROCK (acute BROCK (acute Disease Active 2022-[address] kidney kidney 0-04 [facility] injury) injury) 00:00: Medical 00 Center Essential Essential Disease Recurre 2022-[address] hypertensi hypertensi nce 0-03 [facility] on on 00:00: Medical 00 Center Type 2 Type 2 Disease Recurre 2022-[address] [facility] diabetes diabetes nce 0-03 [facility] mellitus mellitus 00:00: Medica l 00 Center Acute Acute Disease Active 2022-[address] [facility] ischemic ischemic 0-03 [facility] stroke stroke 00:00: Medical 00 [employer] Received Received Disease Active 2022-08 [facility] intravenou intravenou 0-03 [facility] s tissue s tissue 00:00: Medica l plasminoge plasminoge 00 Ce nter n n activator activator (tPA) in (tPA) in emergency emergency department department Colon Colon Disease Active Univers cancer cancer [...] nicotine nicotine 00:00: [place] dependence dependence 00 Pa dical Branch Acute Acute Disease Active 2021-08 [...] wall 0-01 ity of hernia hernia 00:00: [place] 00 Medical Branch Obesity Obesity Disease Active [...] 0-01 it y of with with 00:00: [place] current current 00 Medical use use Branch UTI UTI Disease Active Univers (urinary (urinary 6-25 ity of tract tract 00:00: [place] infection) infection) 00 Me dical due to due to Branch Enterococc Enterococc [facility] Nephrolith Nephrolith Disease Active U nivers iasis [...] ity of C without C without 00:00: [place] hepatic hepatic 00 Medical coma coma Branch 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 2-04 ity of 00:00: [place] 00 Medical Branch Syphilis Syphilis Disease Active Unive rs in male in male 2-04 ity of 00:00: [place] 00 Medical Branch Medicare Medicare Disease Active 2019-08 Unive rs annual annual 1-18 ity of wellness wellness 00:00: [place] visit, visit, 00 Medical subsequent subsequent Br anch Flu Flu Disease Active 2019-08 Univers vaccine vaccine 1-18 ity of need need 00:00: [place] 00 Medical Branch Need for Need for Disease Active 2019-08 Unive rs pneumococc pneumococc 1-18 it y of al al 00:00: [place] vaccinatio vaccinatio 00 Me dical n n Branch Need for Need for Disease Active 2019-08 Unive rs Tdap Tdap 1-18 ity of vaccinatio [place]in[place] Primary Primary Disease Active 2019-08 Univers insomnia insomnia 1-04 ity of 00:00: [place] 00 Medical Branch Uncontroll Uncontroll Disease Active 2019-08 [facility] ed ed 1-04 [place] of hypertensi hypertensi [place] Cerebrovas Cerebrovas Disease Active 2019-08 [facility] cular cular 1-04 ity of accident accident 00:00: [place] (CVA), (CVA), 00 Medical unspecifie unspecifie Br anch d d mechanism mechanism Memory Memory Disease Active 2019-08 Univers changes changes 1-04 ity of 00:00: [place] 00 Medical Branch Dyslipidem Dyslipidem Disease Active 2019-08 [facility] ia ia 1-04 ity of 00:00: [place] 00 Medical Branch Diabetes Diabetes Disease Active 2019-08 Unive [...] depression depression 1-04 it y of 00:00: [place] 00 Medical Branch Essential Essential Disease Active 2019-08 Uni vers hypertensi hypertensi 1-04 it y of on on 00:00: [place] 00 Medical Branch Nicotine Nicotine Disease Active 2019-08 Unive rs dependence dependence 1-04 it y of , , 00:00: [place] cigarettes cigarettes 00 Me dical , with , with Branch unspecifie unspecifie d d nicotine-i nicotine-i nduced nduced disorders disorders 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-08 U nivers duced duced 1-04 ity of chronic chronic 00:00: [place] pancreatit pancreatit 00 Me dical is is Branch Need for Need for Disease Active 2019-08 Unive rs hepatitis hepatitis 1-04 ity of C C 00:00: [place] screening screening 00 Medi brad test test Branch Allergies, Adverse Reactions, Alerts Allergy Allergy Status Severity Reaction(s) Onset Inactive Treating Comm ents Source Name Type Date Date Clinician Sulfamet Propensi Active Hives 2022-[address] [facility] [address] hoxazole ty to 0-03 [facility] -Trimeth adverse 00:00: Medical oprim reaction 00 Center s SULFAMET Allergy Active High Hives 2022-[address] [facility] HOXAZOLE 0-03 [facility] -TRIMETH 00:00: Medical OPRIM 00 Center Sulfamet Propensi Active Hives 2020-08 Univer s hoxazole ty to 0-28 ity of -Trimeth adverse 00:00: [place] oprim reaction 00 [facility] SULFAMET DRUG Active Med Hives 2020-08 Univers HOXAZOLE 0-28 ity of -TRIMETH 00:00: [place] OPRIM 00 Medical Branch BACITRAC DRUG Active Med ITCHING 2019-08 Univers IN INGREDI 2-21 ity of 00:00: [place] 00 Medical Branch Bacitrac Propensi Active Itching 2019-08 Unive rs in ty to 2-21 ity of adverse 00:00: [place] reaction 00 [facility] s [place] Social History Social Habit Start Date Stop Date Quantity Comments Source Gender identity [facility] Sexual orientation [facility]iver [facility] History of tobacco Smokes tobacco [facility] use daily [facility] Exposure to 2023-05-07 2023-05-[address] [facility] SARS-CoV-2 (event) 00:00:00 19:45:00 Medica l Center Alcohol intake 2023-05-17 2023-05-17 .29 /d [facility] 00:00:00 00:00:00 Medical Center Tobacco use and 2023-05-17 2023-05-[address] [facility] exposure 00:00:00 00:00:00 non-user Medical Center History of Social 2023-05-13 2023-05-13 Univers ity of function 00:00:00 00:00:00 [facility] Cigarettes smoked 2022-03-05 2022-03-05 Univers ity of current (pack per 00:00:00 00:00:00 [facility] ed) - Reported Branch Cigarette 2022-03-05 2022-03-05 University of pack-years 00:00:00 00:00:00 [facility] Tobacco Comment 2022-03-05 2022-03-05 open to trial of Uni versity of 00:00:00 00:00:00 nicotine [facility] transdermal [place] therapy Sex Ass[birth year] [facility] kes 00:00:00 00:00:00 [facility] Smoking Status Start Date Stop Date Source Smokes tobacco daily 2023-05-17 00:00:00 [facility] Medications Ordered Filled Start Stop Current Ordering Indication Dosage Frequency Signature Comments Components Source Medication Medication Date Date Medication? Clinician (SIG) Name Name lisinopriL 2022-08- Yes 40mg QD Take [address] [facility] (PRINIVIL,Z 0- 11-06 tablet (40 L ukes ESTRIL) 40 00:00: 23:59 mg total) M edical MG tablet 00 :00 by mouth Center daily for 30 days. NIFEdipine 2022-08- Yes 60mg QD Take [address] [facility] (PROCARDIA- 0-07 11-06 tablet (60 L ukes XL) 60 MG 00:00: 23:59 mg total) Me dical (OSM) 24 hr 00 :00 by mouth Cent er tablet daily for 30 days. fLUoxetine 2022-08- Yes 20mg QD Take [address] [facility] (PROzac) 20 0-07 11-06 capsule Luke s MG capsule 00:00: 23:59 (20 mg Medi brad 00 :00 total) by Center mouth daily for 30 days. aspirin 81 2022-08- Yes 81mg QD Take [address] [facility] MG chewable 0-07 11-06 tablet (81 L ukes tablet 00:00: 23:59 mg total) Medic al 00 :00 by mouth Center daily for 30 days. metFORMIN 2022-08 Yes [id number] TAKE ONE Univers 1,000 mg 0-06 (1) ity of tablet 00:00: TABLET(S) [place] BY MOUTH Medical EVERY Branch TWELVE HOURS WITH MEALS. metFORMIN 2022-08 Yes [id number] TAKE ONE Univers 1,000 mg 0-06 (1) ity of tablet 00:00: TABLET(S) [place] BY MOUTH Medical EVERY Branch TWELVE HOURS WITH MEALS. pancrelipas 2022-08- Yes [id number]{ Take [address] [facility] e, 0-06 -05 lipase} capsule [facility] Lip-Prot-Am 00:00: 23:59 (12,000 Me dical yl, (CREON) 00 :00 units of Cent er 12,000-38,0 lipase 00 -60,000 total) by unit CpDR mouth 3 capsule (three) times daily with meals for 30 days. polyethylen 2022-08- Yes 17g Q.5D Take [address] [facility] e glycol 0-01 23-05 by mouth 2 Luke s (GLYCOLAX) 00:00: 23:59 (two) Medic al 17 gram 00 :00 times Center packet daily for 30 days. senna-docus 2022-08- Yes 2{tbl} QD Take [address] ate 0-01 23-05 tablets by [facility] (SENOKOT S) 00:00: 23:59 mouth Medi brad 8.6-50 mg 00 :00 nightly Center per tablet for 30 days. cyanocobala 2022-08- Yes 1000ug QD Take [address] min 0-01 23-05 tablet [facility] (VITAMIN 00:00: 23:59 (1,000 mcg Me dical B-12) 1000 00 :00 total) by Cent er MCG tablet mouth daily for 30 days. cloNIDine 2022-08- Yes .2mg Q.[id number] Take [address] [facility] HCL 0-06 -05 [id number] tablet [facility] (CATAPRES) 00:00: 23:59 3D (0.2 mg Med ical 0.2 MG 00 :00 total) by Center tablet mouth 3 (three) times daily for 30 days . carvediloL 2022-08- Yes 25mg Q.5D Take [address] [facility] (COREG) 25 0-01 23-05 tablet (25 Niki kes MG tablet 00:00: 23:59 mg total) Me dical 00 :00 by mouth 2 Center (two) times daily for 30 days. buPROPion 2022-08- Yes 150mg Q.5D Take [address] [facility] (WELLBUTRIN 0-01 23-05 tablet [facility] SR) 150 MG 00:00: 23:59 (150 mg Med ical 12 hr 00 :00 total) by Center tablet mouth 2 (two) times daily for 30 days. atorvastati 2022-08- Yes 80mg QD Take [address] [facility] n (LIPITOR) 0-01 23-05 tablet (80 L ukes 80 MG 00:00: 23:59 mg total) Medica l tablet 00 :00 by mouth Center nightly for 30 days. metFORMIN 2022-08- Yes 1000mg Take [address] [facility] (GLUCOPHAGE 0-01 23-05 tablet [facility] ) 1000 MG 00:00: 23:59 (1,000 mg Me dical tablet 00 :00 total) by Center mouth 2 (two) times daily with breakfast and dinner for 30 days . water for 2022- No PRN, Univers irrigation 05-13 Starting ity of irrigation 14:03: 17:06 on Fri [place] solution 00 :02 05/13/23 at [...] :00 ONCE, 1 Medical dose, On Branch 05/13/23 at 0900, STAT, DSU Pre-op hydralAZINE 2022- No 20mg 20 mg, Uni vers (APRESOLINE 05-13 Slow IV ity of ) injection 14:00: 13:04 [place] 20 mg 00 :00 ONCE, 1 Medical dose, On Branch 05/13/23 at 0900, STAT, DSU Pre-op lactated 2022-0 2022- No 1000mL at 42 Unive rs ringers IV 05-13 mL/hr, ity of infusion 12:15: 13:04 1,000 mL, [place] as 1,000 mL 00 :00 IV Medical Infusion, Branch ONCE, 1 dose, On Tue05/13/23 at 0715, Routine, DSU Pre-op lactated 2022-0 2022- No 1000mL at 42 Unive rs ringers IV 05-13 mL/hr, ity of infusion 12:15: 13:04 1,000 mL, [place] as 1,000 mL 00 :00 IV Medical Infusion, Branch ONCE, 1 dose, On Tue05/13/23 at 0715, Routine, DSU Pre-op TRAMADOL 50 2022-0 Yes [id number] TAKE ONE Univers mg tablet 05-13 (1) ity of 00:00: TABLET(S) [place] 00 BY MOUTH Medical EVERY Branch EIGHT HOURS NEEDED FOR PAIN (SCALE 7-10). TRAMADOL 50 2022-0 Yes [id number] TAKE ONE Univers mg tablet 05-13 (1) ity of 00:00: TABLET(S) [place] 00 BY MOUTH Medical EVERY Branch EIGHT HOURS NEEDED FOR PAIN (SCALE 7-10). TRAMADOL 50 2022-0 Yes [id number] TAKE ONE Univers mg tablet 05-13 (1) ity of 00:00: TABLET(S) [place] 00 BY MOUTH Medical EVERY Branch EIGHT HOURS NEEDED FOR PAIN (SCALE 7-10). TRAMADOL 50 2022-0 Yes [id number] TAKE ONE Univers mg tablet - (1) ity of 00:00: TABLET(S) [place] 00 BY MOUTH Medical EVERY Branch EIGHT HOURS NEEDED FOR PAIN (SCALE 7-10). TRAMADOL 50 2022-0 Yes [id number] TAKE ONE Univers mg tablet - (1) ity of 00:00: TABLET(S) [place] 00 BY MOUTH Medical EVERY Branch EIGHT HOURS NEEDED FOR PAIN (SCALE 7-10). peg-electro 2023-0 2023- No 4000mL Take 4,000 Univers lyte soln 8-22 08-23 mL by ity of 236-22.74-6 00:00: 04:59 mouth once [place] .74 -5.86 00 :00 now for 1 Medic al gram dose. Branch solution peg-electro 2023-0 2023- No 4000mL Take 4,000 Univers lyte soln 8-22 08-23 mL by ity of 236-22.74-6 00:00: 04:59 mouth once [place] .74 -5.86 00 :00 now for 1 Medic al gram dose. Branch solution peg-electro 2023-0 2023- No 4000mL Take 4,000 Univers lyte soln 8-22 08-23 mL by ity of 236-22.74-6 00:00: 04:59 mouth once [place] .74 -5.86 00 :00 now for 1 Medic al gram dose. Branch solution peg-electro 2023-0 2023- No 4000mL Take 4,000 Univers lyte soln 8-22 08-23 mL by ity of 236-22.74-6 00:00: 04:59 mouth once [place] .74 -5.86 00 :00 now for 1 Medic al gram dose. Branch solution peg-electro 2023-0 2023- No 4000mL Take 4,000 Univers lyte soln 8-22 08-23 mL by ity of 236-22.74-6 00:00: 04:59 mouth once [place] .74 -5.86 00 :00 now for 1 Medic al gram dose. Branch solution ergocalcife 3-0 Yes [id number] Take 1 Univers rol, 7-20 capsule by ity of vitamin d2, 00:00: mouth [place] 1,250 mcg 00 weekly. Medical (50,000 Branch unit) capsule hydrALAZINE 3-0 Yes [id number] TAKE ONE Univers 50 mg 7-20 (1) TABLET ity of tablet 00:00: BY MOUTH [place] 00 IN THE Medical MORNING Branch AND 1 TABLET AT NOON AND 1 TABLET IN THE EVENING. hydrALAZINE 3-0 Yes [id number] 100mg Take 1 Univers 100 mg 7-20 tablet by ity of tablet 00:00: mouth in [place] 00 the Medical morning Branch and 1 tablet at noon and 1 tablet in the evening. glipiZIDE 2022-0 Yes [id number] TAKE ONE Univers 10 mg 7-20 (1) ity of tablet 00:00: TABLET(S) [place] 00 BY MOUTH Medical ONCE A DAY Branch BEFORE MEALS. lipase-prot 2022-0 Yes [id number] 1{capsu Take 1 Univers ease-amylas 7-20 le} capsule by it y of e 00:00: mouth in [place] -38,0 00 the Medical 60 morning Branch unit and 1 capsule capsule at noon and 1 capsule in the evening. Take with meals. buPROPion 2022-0 Yes [id number] 150mg Take 1 U nivers XL 150 mg 7-20 tablet by ity o f 24 hr 00:00: mouth in [place] tablet 00 the Medical morning Branch and 1 tablet in the evening. ergocalcife 2022-0 Yes [id number] Take 1 Univers rol, 7-20 capsule by ity of vitamin d2, 00:00: mouth [place] 1,250 mcg 00 weekly. Medical (50,000 Branch unit) capsule hydrALAZINE 2022-0 Yes [id number] TAKE ONE Univers 50 mg 7-20 (1) TABLET ity of tablet 00:00: BY MOUTH [place] 00 IN THE Medical MORNING Branch AND 1 TABLET AT NOON AND 1 TABLET IN THE EVENING. hydrALAZINE 2022-0 Yes [id number] 100mg Take 1 Univers 100 mg 7-20 tablet by ity of tablet 00:00: mouth in [place] 00 the Medical morning Branch and 1 tablet at noon and 1 tablet in the evening. glipiZIDE 2022-0 Yes [id number] TAKE ONE Univers 10 mg 7-20 (1) ity of tablet 00:00: TABLET(S) 00 BY MOUTH Medical ONCE A DAY Branch BEFORE MEALS. lipase-prot 2022-0 Yes [id number] 1{capsu Take 1 Univers ease-amylas 7-20 le} capsule by it y of e 00:00: mouth in [place] 12,000-38,0 00 the Medical 60 morning Branch unit and 1 capsule capsule at noon and 1 capsule in the evening. Take with meals. buPROPion 3-0 Yes [id number] 150mg Take 1 U nivers XL 150 mg 7-20 tablet by ity o f 24 hr 00:00: mouth in [place] tablet 00 the Medical morning Branch and 1 tablet in the evening. ergocalcife 2022-0 Yes [id number] Take 1 Univers rol, 7-20 capsule by ity of vitamin d2, 00:00: mouth [place] 1,250 mcg 00 weekly. Medical (50,000 Branch unit) capsule hydrALAZINE 2022-0 Yes [id number] TAKE ONE Univers 50 mg 7-20 (1) TABLET ity of tablet 00:00: BY MOUTH [place] 00 IN THE Medical MORNING Branch AND 1 TABLET AT NOON AND 1 TABLET IN THE EVENING. hydrALAZINE 2022-0 Yes [id number] 100mg Take 1 Univers 100 mg 7-20 tablet by ity of tablet 00:00: mouth in [place] 00 the Medical morning Branch and 1 tablet at noon and 1 tablet in the evening. glipiZIDE 2022-0 Yes [id number] TAKE ONE Univers 10 mg 7-20 (1) ity of tablet 00:00: TABLET(S) [place] 00 BY MOUTH Medical ONCE A DAY Branch BEFORE MEALS. lipase-prot 2022-0 Yes [id number] 1{capsu Take 1 Univers ease-amylas 7-20 le} capsule by it y of e 00:00: mouth in [place] 12,000-38,0 00 the [facility] 00 -60,000 morning Branch unit and 1 capsule capsule at noon and 1 capsule in the evening. Take with meals. buPROPion 2022-0 Yes [id number] 150mg Take 1 U nivers XL 150 mg 7-20 tablet by ity o f 24 hr 00:00: mouth in [place] tablet 00 the Medical morning Branch and 1 tablet in the evening. ergocalcife 2022-0 Yes [id number] Take 1 Univers rol, 7-20 capsule by ity of vitamin d2, 00:00: mouth [place] 1,250 mcg 00 weekly. Medical (50,000 Branch unit) capsule hydrALAZINE 2022-0 Yes [id number] TAKE ONE Univers 50 mg 7-20 (1) TABLET ity of tablet 00:00: BY MOUTH [place] 00 IN THE Medical MORNING Branch AND 1 TABLET AT NOON AND 1 TABLET IN THE EVENING. hydrALAZINE 2022-0 Yes [id number] 100mg Take 1 Univers 100 mg 7-20 tablet by ity of tablet 00:00: mouth in [place] 00 the Medical morning Branch and 1 tablet at noon and 1 tablet in the evening. glipiZIDE 3-0 Yes [id number] TAKE ONE Univers 10 mg 7-20 (1) ity of tablet 00:00: TABLET(S) [place] 00 BY MOUTH Medical ONCE A DAY Branch BEFORE MEALS. lipase-prot 2022-0 Yes [id number] 1{capsu Take 1 Univers ease-amylas 7-20 le} capsule by it y of e 00:00: mouth in [place] 12,000-38,0 00 the Medical 60,000 morning Branch unit and 1 capsule capsule at noon and 1 capsule in the evening. Take with meals. buPROPion 2022-0 Yes [id number] 150mg Take 1 U nivers XL 150 mg 7-20 tablet by ity o f 24 hr 00:00: mouth in [place] tablet 00 the Medical morning Branch and 1 tablet in the evening. ergocalcife 2022-0 Yes [id number] Take 1 Univers rol, 7-20 capsule by ity of vitamin d2, 00:00: mouth [place] 1,250 mcg 00 weekly. Medical (50,000 Branch unit) capsule hydrALAZINE 2022-0 Yes [id number] TAKE ONE Univers 50 mg 7-20 (1) TABLET ity of tablet 00:00: BY MOUTH [place] 00 IN THE Medical MORNING Branch AND 1 TABLET AT NOON AND 1 TABLET IN THE EVENING. hydrALAZINE 2022-0 Yes [id number] 100mg Take 1 Univers 100 mg 7-20 tablet by ity of tablet 00:00: mouth in [place] 00 the Medical morning Branch and 1 tablet at noon and 1 tablet in the evening. glipiZIDE 2022-0 Yes [id number] TAKE ONE Univers 10 mg 7-20 (1) ity of tablet 00:00: TABLET(S) 00 BY MOUTH Medical ONCE A DAY Branch BEFORE MEALS. lipase-prot 2022-0 Yes [id number] 1{capsu Take 1 Univers ease-amylas 7-20 le} capsule by it y of e 00:00: mouth in [place] 12,000-38,0 00 the Medical 00 -60,000 morning Branch unit and 1 capsule capsule at noon and 1 capsule in the evening. Take with meals. buPROPion 2022-0 Yes [id number] 150mg Take 1 U nivers XL 150 mg 7-20 tablet by ity o f 24 hr 00:00: mouth in [place] tablet 00 the Medical morning Branch and 1 tablet in the evening. ergocalcife 2022-0 Yes [id number] Take 1 Univers rol, 7-20 capsule by ity of vitamin d2, 00:00: mouth [place] 1,250 mcg 00 weekly. Medical (50,000 Branch unit) capsule hydrALAZINE 2022-0 Yes [id number] TAKE ONE Univers 50 mg 7-20 (1) TABLET ity of tablet 00:00: BY MOUTH [place] 00 IN THE Medical MORNING Branch AND 1 TABLET AT NOON AND 1 TABLET IN THE EVENING. hydrALAZINE 2022-0 Yes [id number] 100mg Take 1 Univers 100 mg 7-20 tablet by ity of tablet 00:00: mouth in [place] 00 the Medical morning Branch and 1 tablet at noon and 1 tablet in the evening. glipiZIDE 2022-0 Yes [id number] TAKE ONE Univers 10 mg 7-20 (1) ity of tablet 00:00: TABLET(S) [place] 00 BY MOUTH Medical ONCE A DAY Branch BEFORE MEALS. lipase-prot 2022-0 Yes [id number] 1{capsu Take 1 Univers ease-amylas 7-20 le} capsule by it y of e 00:00: mouth in [place] 12,000-38,0 00 the [facility] 00 -60,000 morning Branch unit and 1 capsule capsule at noon and 1 capsule in the evening. Take with meals. buPROPion 2022-0 Yes [id number] 150mg Take 1 U nivers XL 150 mg 7-20 tablet by ity o f 24 hr 00:00: mouth in [place] tablet 00 the Medical morning Branch and 1 tablet in the evening. ergocalcife 2022-0 Yes [id number] Take 1 Univers rol, 7-20 capsule by ity of vitamin d2, 00:00: mouth [place] 1,250 mcg 00 weekly. Medical (50,000 Branch unit) capsule hydrALAZINE 2022-0 Yes [id number] TAKE ONE Univers 50 mg 7-20 (1) TABLET ity of tablet 00:00: BY MOUTH [place] 00 IN THE Medical MORNING Branch AND 1 TABLET AT NOON AND 1 TABLET IN THE EVENING. hydrALAZINE 2022-0 Yes [id number] 100mg Take 1 Univers 100 mg 7-20 tablet by ity of tablet 00:00: mouth in [place] 00 the Medical morning Branch and 1 tablet at noon and 1 tablet in the evening. glipiZIDE 2022-0 Yes [id number] TAKE ONE Univers 10 mg 7-20 (1) ity of tablet 00:00: TABLET(S) [place] 00 BY MOUTH Medical ONCE A DAY Branch BEFORE MEALS. lipase-prot 2022-0 Yes [id number] 1{capsu Take 1 Univers ease-amylas 7-20 le} capsule by it y of e 00:00: mouth in [place] 12,000-38,0 00 the Medical 60,000 morning Branch unit and 1 capsule capsule at noon and 1 capsule in the evening. Take with meals. buPROPion 2022-0 Yes [id number] 150mg Take 1 U nivers XL 150 mg 7-20 tablet by ity o f 24 hr 00:00: mouth in [place] tablet 00 the Medical morning Branch and 1 tablet in the evening. ergocalcife 2022-0 Yes [id number] Take 1 Univers rol, 7-20 capsule by ity of vitamin d2, 00:00: mouth [place] 1,250 mcg 00 weekly. Medical (50,000 Branch unit) capsule hydrALAZINE 2022-0 Yes [id number] TAKE ONE Univers 50 mg 7-20 (1) TABLET ity of tablet 00:00: BY MOUTH [place] 00 IN THE Medical MORNING Branch AND 1 TABLET AT NOON AND 1 TABLET IN THE EVENING. hydrALAZINE 2022-0 Yes [id number] 100mg Take 1 Univers 100 mg 7-20 tablet by ity of tablet 00:00: mouth in [place] 00 the Medical morning Branch and 1 tablet at noon and 1 tablet in the evening. glipiZIDE 2022-0 Yes [id number] TAKE ONE Univers 10 mg 7-20 (1) ity of tablet 00:00: TABLET(S) 00 BY MOUTH Medical ONCE A DAY Branch BEFORE MEALS. lipase-prot 2022-0 Yes [id number] 1{capsu Take 1 Univers ease-amylas 7-20 le} capsule by it y of e 00:00: mouth in [place] 12,000-38,0 00 the Medical 00 -60,000 morning Branch unit and 1 capsule capsule at noon and 1 capsule in the evening. Take with meals. buPROPion 2022-0 Yes [id number] 150mg Take 1 U nivers XL 150 mg 7-20 tablet by ity o f 24 hr 00:00: mouth in [place] tablet 00 the Medical morning Branch and 1 tablet in the evening. ergocalcife 2023-0 Yes [id number] Take 1 Univers rol, 7-20 capsule by ity of vitamin d2, 00:00: mouth [place] 1,250 mcg 00 weekly. Medical (50,000 Branch unit) capsule hydrALAZINE 2023-0 Yes [id number] TAKE ONE Univers 50 mg 7-20 (1) TABLET ity of tablet 00:00: BY MOUTH [place] 00 IN THE Medical MORNING Branch AND 1 TABLET AT NOON AND 1 TABLET IN THE EVENING. hydrALAZINE 2022-0 Yes [id number] 100mg Take 1 [facility] 100 mg 7-20 tablet by ity of tablet 00:00: mouth in [place] 00 the Medical morning Branch and 1 tablet at noon and 1 tablet in the evening. glipiZIDE 2022-0 Yes [id number] TAKE ONE [facility] 10 mg 7-20 (1) ity of tablet 00:00: TABLET(S) [place] 00 BY MOUTH Medical ONCE A DAY Branch BEFORE MEALS. lipase-prot 3-0 Yes [id number] 1{capsu Take 1 [facility] ease-amylas 7-20 le} capsule by it y of e 00:00: mouth in [place] 12,000-38,0 00 the [facility] 00 -60,000 morning Branch unit and 1 capsule capsule at noon and 1 capsule in the evening. Take with meals. buPROPion 2023-0 Yes [id number] 150mg Take 1 U nivers XL 150 mg 7-20 tablet by ity o f 24 hr 00:00: mouth in [place] tablet 00 the Medical morning Branch and 1 tablet in the evening. ergocalcife 2023-0 Yes [id number] Take 1 [facility] rol, 7-20 capsule by ity of vitamin d2, 00:00: mouth [place] 1,250 mcg 00 weekly. Medical (50,000 Branch unit) capsule hydrALAZINE 3-0 Yes [id number] TAKE ONE [facility] 50 mg 7-20 (1) TABLET ity of tablet 00:00: BY MOUTH [place] 00 IN THE Medical MORNING Branch AND 1 TABLET AT NOON AND 1 TABLET IN THE EVENING. hydrALAZINE 2023-0 Yes [id number] 100mg Take 1 [facility] 100 mg 7-20 tablet by ity of tablet 00:00: mouth in [place] 00 the Medical morning Branch and 1 tablet at noon and 1 tablet in the evening. glipiZIDE 2022-0 Yes [id number] TAKE ONE [facility] 10 mg 7-20 (1) ity of tablet 00:00: TABLET(S) 00 BY MOUTH Medical ONCE A DAY [place] BEFORE MEALS. lipase-prot 2022-0 Yes [id number] 1{capsu Take 1 [facility] ease-amylas 7-20 le} capsule by it y of e 00:00: mouth in [place] 12,000-38,0 00 the [facility] morning Branch unit and 1 capsule capsule at noon and 1 capsule in the evening. Take with meals. buPROPion 2022-0 Yes [id number] 150mg Take 1 [facility] nivers XL 150 mg 7-20 tablet by ity o f 24 hr 00:00: mouth in [place] tablet 00 the Medical morning Branch and 1 tablet in the evening. ergocalcife 2022-0 Yes [id number] Take 1 [facility] rol, 7-20 capsule by ity of vitamin d2, 00:00: mouth [place] 1,250 mcg 00 weekly. Medical (50,000 Branch unit) capsule hydrALAZINE 2022-0 Yes [id number] TAKE ONE [facility] 50 mg 7-20 (1) TABLET ity of tablet 00:00: BY MOUTH [place] 00 IN THE Medical MORNING Branch AND 1 TABLET AT NOON AND 1 TABLET IN THE EVENING. hydrALAZINE 2022-0 Yes [id number] 100mg Take 1 [facility] 100 mg 7-20 tablet by ity of tablet 00:00: mouth in [place] 00 the Medical morning Branch and 1 tablet at noon and 1 tablet in the evening. glipiZIDE 2022-0 Yes [id number] TAKE ONE [facility] 10 mg 7-20 (1) ity of tablet 00:00: TABLET(S) 00 BY MOUTH Medical ONCE A DAY [place] BEFORE MEALS. lipase-prot 2022-0 Yes [id number] 1{capsu Take 1 [facility] ease-amylas 7-20 le} capsule by it y of e 00:00: mouth in [place] 12,000-38,0 00 the Medical 60, morning Branch unit and 1 capsule capsule at noon and 1 capsule in the evening. Take with meals. buPROPion 2023-0 Yes [id number] 150mg Take 1 [facility] nivers XL 150 mg 7-20 tablet by ity o f 24 hr 00:00: mouth in [place] tablet 00 the Medical morning Branch and 1 tablet in the evening. ergocalcife 2023-0 Yes [id number] Take 1 [facility] rol, 7-20 capsule by ity of vitamin d2, 00:00: mouth [place] 1,250 mcg 00 weekly. Medical (50,000 Branch unit) capsule hydrALAZINE 2023-0 Yes [id number] 100mg Take 1 [facility] 100 mg 7-20 tablet by ity of tablet 00:00: mouth in [place] 00 the Medical morning Branch and 1 tablet at noon and 1 tablet in the evening. glipiZIDE 3-0 Yes [id number] TAKE ONE [facility] 10 mg 7-20 (1) ity of tablet 00:00: TABLET(S) [place] 00 BY MOUTH Medical ONCE A DAY Branch BEFORE MEALS. lipase-prot 2022-0 Yes [id number] 1{capsu Take 1 [facility] ease-amylas 7-20 le} capsule by it y of e 00:00: mouth in [place] 12,000-38,0 00 the Medical 00 -60,000 morning Branch unit and 1 capsule capsule at noon and 1 capsule in the evening. Take with meals. buPROPion 2023-0 Yes [id number] 150mg Take 1 U nivers XL 150 mg 7-20 tablet by ity o f 24 hr 00:00: mouth in [place] tablet 00 the Medical morning Branch and 1 tablet in the evening. ergocalcife 2023-0 Yes [id number] Take 1 [facility] rol, 7-20 capsule by ity of vitamin d2, 00:00: mouth [place] 1,250 mcg 00 weekly. Medical (50,000 Branch unit) capsule hydrALAZINE 2023-0 Yes [id number] 100mg Take 1 [facility] 100 mg 7-20 tablet by ity of tablet 00:00: mouth in [place] 00 the Medical morning Branch and 1 tablet at noon and 1 tablet in the evening. glipiZIDE 2023-0 Yes [id number] TAKE ONE [facility] 10 mg 7-20 (1) ity of tablet 00:00: TABLET(S) [place] 00 BY MOUTH Medical ONCE A DAY Branch BEFORE MEALS. lipase-prot 2022-0 Yes [id number] 1{capsu Take 1 [facility] ease-amylas 7-20 le} capsule by it y of e 00:00: mouth in [place] 12,000-38,0 00 the [facility] -60,000 morning Branch unit and 1 capsule capsule at noon and 1 capsule in the evening. Take with meals. buPROPion 2023-0 Yes [id number] 150mg Take 1 U nivers XL 150 mg 7-20 tablet by ity o f 24 hr 00:00: mouth in [place] tablet 00 the Medical morning Branch and 1 tablet in the evening. ergocalcife 2023-0 Yes [id number] Take 1 [facility] rol, 7-20 capsule by ity of vitamin d2, 00:00: mouth [place] 1,250 mcg 00 weekly. Medical (50,000 Branch unit) capsule hydrALAZINE 2022-0 Yes [id number] 100mg Take 1 [facility] 100 mg 7-20 tablet by ity of tablet 00:00: mouth in [place] 00 the [facility] morning Branch and 1 tablet at noon and 1 tablet in the evening. glipiZIDE 2022-0 Yes [id number] TAKE ONE [facility] 10 mg 7-20 (1) ity of tablet 00:00: TABLET(S) [place] 00 BY MOUTH Medical ONCE A DAY Branch BEFORE MEALS. lipase-prot 2022-0 Yes [id number] 1{capsu Take 1 [facility] ease-amylas 7-20 le} capsule by it y of e 00:00: mouth in [place] 12,000-38,0 00 the [facility] 60,000 morning Branch unit and 1 capsule capsule at noon and 1 capsule in the evening. Take with meals. buPROPion 3-0 Yes [id number] 150mg Take 1 U nivers XL 150 mg 7-20 tablet by ity o f 24 hr 00:00: mouth in [place] tablet 00 the Medical morning Branch and 1 tablet in the evening. ergocalcife 2023-0 Yes [id number] Take 1 [facility] rol, 7-20 capsule by ity of vitamin d2, 00:00: mouth [place] 1,250 mcg 00 weekly. Medical (50,000 Branch unit) capsule hydrALAZINE 2023-0 Yes [id number] 100mg Take 1 [facility] 100 mg 7-20 tablet by ity of tablet 00:00: mouth in [place] 00 the Medical morning Branch and 1 tablet at noon and 1 tablet in the evening. glipiZIDE 2022-0 Yes [id number] TAKE ONE [facility] 10 mg 7-20 (1) ity of tablet 00:00: TABLET(S) [place] 00 BY MOUTH Medical ONCE A DAY Branch BEFORE MEALS. lipase-prot 2022-0 Yes [id number] 1{capsu Take 1 [facility] ease-amylas 7-20 le} capsule by it y of e 00:00: mouth in [place] 12,000-38,0 00 the Medical 60,000 morning Branch unit and 1 capsule capsule at noon and 1 capsule in the evening. Take with meals. buPROPion 2022-0 Yes [id number] 150mg Take 1 U nivers XL 150 mg 7-20 tablet by ity o f 24 hr 00:00: mouth in [place] tablet 00 the Medical morning Branch and 1 tablet in the evening. ergocalcife 2022-0 Yes [id number] Take 1 [facility] rol, 7-20 capsule by ity of vitamin d2, 00:00: mouth [place] 1,250 mcg 00 weekly. Medical (50,000 Branch unit) capsule hydrALAZINE 2022-0 Yes [id number] 100mg Take 1 [facility] 100 mg 7-20 tablet by ity of tablet 00:00: mouth in [place] 00 the [facility] morning Branch and 1 tablet at noon and 1 tablet in the evening. glipiZIDE 2022-0 Yes [id number] TAKE ONE [facility] 10 mg 7-20 (1) ity of tablet 00:00: TABLET(S) [place] 00 BY MOUTH Medical ONCE A DAY Branch BEFORE MEALS. lipase-prot 2022-0 Yes [id number] 1{capsu Take 1 [facility] ease-amylas 7-20 le} capsule by it y of e 00:00: mouth in [place] 12,000-38,0 00 the Medical 60,000 morning Branch unit and 1 capsule capsule at noon and 1 capsule in the evening. Take with meals. buPROPion 3-0 Yes [id number] 150mg Take 1 U nivers XL 150 mg 7-20 tablet by ity o f 24 hr 00:00: mouth in [place] tablet 00 the Medical morning Branch and 1 tablet in the evening. ergocalcife 3-0 Yes [id number] Take 1 [facility] rol, 7-20 capsule by ity of vitamin d2, 00:00: mouth [place] 1,250 mcg 00 weekly. Medical (50,000 Branch unit) capsule hydrALAZINE 3-0 Yes [id number] 100mg Take 1 [facility] 100 mg 7-20 tablet by ity of tablet 00:00: mouth in [place] 00 the [facility] morning Branch and 1 tablet at noon and 1 tablet in the evening. glipiZIDE 3-0 Yes [id number] TAKE ONE [facility] 10 mg 7-20 (1) ity of tablet 00:00: TABLET(S) [place] 00 BY MOUTH Medical ONCE A DAY Branch BEFORE MEALS. lipase-prot 2022-0 Yes [id number] 1{capsu Take 1 [facility] ease-amylas 7-20 le} capsule by it y of e 00:00: mouth in [place] 12,-38,0 00 the [facility] morning [place] unit and 1 capsule capsule at noon and 1 capsule in the evening. Take with meals. buPROPion 2022-0 Yes [id number] 150mg Take 1 U nivers XL 150 mg 7-20 tablet by ity o f 24 hr 00:00: mouth in [place] tablet 00 the [facility] morning [place] and 1 tablet in the evening. ergocalcife 2022-0 Yes [id number] Take 1 [facility] rol, 7-20 capsule by ity of vitamin d2, 00:00: mouth [place] 1,250 mcg 00 weekly. Medical (50,000 Branch unit) capsule hydrALAZINE 2022-0 Yes [id number] 100mg Take 1 [facility] 100 mg 7-20 tablet by ity of tablet 00:00: mouth in [place] 00 the [facility] morning Branch and 1 tablet at noon and 1 tablet in the evening. glipiZIDE 3-0 Yes [id number] TAKE ONE [facility] 10 mg 7-20 (1) ity of tablet 00:00: TABLET(S) 00 BY MOUTH Medical ONCE A DAY Branch BEFORE MEALS. lipase-prot 2022-0 Yes [id number] 1{capsu Take 1 [facility] ease-amylas 7-20 le} capsule by it y of e 00:00: mouth in [place] 12,000-38,0 00 the [facility] 60, morning Branch unit and 1 capsule capsule at noon and 1 capsule in the evening. Take with meals. buPROPion 2022-0 Yes [id number] 150mg Take 1 U nivers XL 150 mg 7-20 tablet by ity o f 24 hr 00:00: mouth in [place] tablet 00 the Medical morning Branch and 1 tablet in the evening. hydrALAZINE 2022- No [id number] TAKE ONE [facility] 50 mg 7-20 -29 (1) TABLET ity of tablet 00:00: 00:00 BY MOUTH [place] 00 :00 IN THE Medical MORNING Branch AND 1 TABLET AT NOON AND 1 TABLET IN THE EVENING. hydrALAZINE 2022-2022- No [id number] TAKE ONE [facility] 50 mg 7-20 -29 (1) TABLET ity of tablet 00:00: 00:00 BY MOUTH [place] 00 :00 IN THE Medical MORNING Branch AND 1 TABLET AT NOON AND 1 TABLET IN THE EVENING. hydrALAZINE 2022-2022- No [id number] TAKE ONE [facility] 50 mg 7-20 -29 (1) TABLET ity of tablet 00:00: 00:00 BY MOUTH [place] 00 :00 IN THE Medical MORNING Branch AND 1 TABLET AT NOON AND 1 TABLET IN THE EVENING. hydrALAZINE 2022-0 2022- No [id number] TAKE ONE [facility] 50 mg 7-20 -29 (1) TABLET ity of tablet 00:00: 00:00 BY MOUTH [place] 00 :00 IN THE [facility] MORNING Branch AND 1 TABLET AT NOON AND 1 TABLET IN THE EVENING. peg-electro 2022- No 4000mL Take 4,000 [facility] lyte soln 6-22 06-25 mL by ity of 236-.74-6 00:00: 04:59 mouth in [place] .74 -5.86 00 :00 the [facility] Branch solution for 2 days. peg-electro 2022-0 2022- No 4000mL Take 4,000 Univers lyte soln 6-22 06-25 mL by ity of 236-22.74-6 00:00: 04:59 mouth in [place] .74 -5.86 00 :[address] [facility] solution for 2 days. peg-electro 2022-0 2022- No 4000mL Take 4,000 [facility] lyte soln 6-22 06-25 mL by ity of 236-22.74-6 00:00: 04:59 mouth in [place] .74 -5.86 00 :00 the Medical gram morning Branch solution for 2 days. peg-electro 2022-0 2022- No 4000mL Take 4,000 [facility] lyte soln 02-03 06-25 mL by ity of 236-22.74-6 00:00: 04:59 mouth in [place] .74 -5.86 00 :00 the Medical gram morning Branch solution for 2 days. lactated 2022-0 Yes 1000mL at 100 Unive rs ringers IV 6-20 mL/hr, ity of infusion 14:30: 1,000 [place] 1,000 [place] 00 IV Medical Infusion, Branch CONTINUOUS , Starting on Tue02/01/23 at 0930, Until Discontinu ed, Routine, PACU lactated 2022-0 2022- No 1000mL at 100 Univ ers ringers IV 6-20 06-20 mL/hr, ity of infusion 14:30: 17:00 1,000 mL, [place] 1,000 mL 00 :44 IV Medical Infusion, Branch CONTINUOUS , Starting on Tue02/01/23 at 0930, Until Tue02/01/23 at 1200, Routine, PACU ondansetron 0 Yes 4mg 4 mg, Slow Univers (ZOFRAN 6-20 IV Push, ity of (PF)) 14:16: PRN, 1 [place] injection 4 01 dose, Medical mg Starting Branch on Tue02/01/23 at 0916, Until Discontinu ed, Routine, Nausea and Vomiting (N/V), PACU ondansetron 2022-0 2022- No 4mg 4 mg, Slow Univers (ZOFRAN 6-20 06-20 IV Push, ity of (PF)) 14:16: 17:00 PRN, 1 [place] injection 4 01 :44 dose, Medical mg Starting Branch on Tue02/01/23 at 0916, Until Tue02/01/23 at 1200, Routine, Nausea and Vomiting (N/V), PACU water for 2022-0 Yes PRN, Univers irrigation 6-20 Starting ity o f irrigation 13:59: on Tue [place] solution 00 02/01/23 at Medic al 0859, Branch Until Discontinu ed, Routine, Intra-op simethicone 2022-0 Yes PRN, Univer s (GAS RELIEF 6-20 Starting ity of (SIMETHICON 13:59: on Tue [place] E)) 40 00 02/01/23 at Medical mg/0.6 mL 0859, Branch drops Until Discontinu ed, Routine, Intra-op water for 2022- No PRN, Univers irrigation 02-01 Starting ity of irrigation 13:59: 17:00 on [place] solution 00 :44 02/01/23 at Medic al 0859, Branch Until 02/01/23 at 1200, Routine, Intra-op simethicone 2022- No PRN, Unive rs (GAS RELIEF 02-01 Starting ity of (SIMETHICON 13:59: 17:00 on Tue [place] E)) 40 00 :44 02/01/23 at Medical mg/0.6 mL 0859, Branch drops Until 02/01/23 at 1200, Routine, Intra-op GAVILYTE-G 2022- No [...] No 4000mL Take 4,000 [facility] lyte soln 07 06-08 mL by ity of (GOLYTELY) 00:00: 04:59 mouth once [place] 236-22.74-6 00 :00 now for 1 Med ical .74 -5.86 dose. Branch gram solution ergocalcife Yes [id number] Take 1 [facility] rol, 5-29 capsule by ity of vitamin d2, 00:00: mouth [place] 1,250 mcg 00 weekly. Medical (50,000 Branch unit) capsule calcium Yes [id number] 500mg Take 1 Uni vers carbonate 5-29 tablet by ity o f 500 mg 00:00: mouth in [place] calcium 00 the Medical (1,250 mg) morning. Branc h tablet B 3-0 Yes [id number] 1{tbl} Take 1 Univ ers Complex-Fol 5-29 tablet by ity of ic Acid (B 00:00: mouth in [place] COMPLEX 1, 00 the Medical WITH FOLIC morning. Branc h ACID,) 0.4 mg Tab ergocalcife 2023-0 Yes [id number] Take 1 [facility] rol, 5-29 capsule by ity of vitamin d2, 00:00: mouth [place] 1,250 mcg 00 weekly. Medical (50,000 Branch unit) capsule calcium 2023-0 Yes [id number] 500mg Take 1 Uni vers carbonate 5-29 tablet by ity o f 500 mg 00:00: mouth in [place] calcium 00 the Medical (1,250 mg) morning. Branc h tablet B 2022-0 Yes [id number] 1{tbl} Take 1 Univ ers Complex-Fol 5-29 tablet by ity of ic Acid (B 00:00: mouth [place] COMPLEX 1, 00 the Medical WITH FOLIC morning. Branc h ACID,) 0.4 mg Tab ergocalcife 2023-0 Yes [id number] Take 1 [facility] rol, 5-29 capsule by ity of vitamin d2, 00:00: mouth [place] 1,250 mcg 00 weekly. Medical (50,000 Branch unit) capsule calcium 2023-0 Yes [id number] 500mg Take 1 Uni vers carbonate 5-29 tablet by ity o f 500 mg 00:00: mouth in [place] calcium 00 the Medical (1,250 mg) morning. Branc h tablet B 3-0 Yes [id number] 1{tbl} Take 1 Univ ers Complex-Fol 5-29 tablet by ity of ic Acid (B 00:00: mouth [place] COMPLEX 1, 00 the Medical WITH FOLIC morning. Branc h ACID,) 0.4 mg Tab ergocalcife 2023-0 Yes [id number] Take 1 [facility] rol, 5-29 capsule by ity of vitamin d2, 00:00: mouth [place] 1,250 mcg 00 weekly. Medical (50,000 Branch unit) capsule calcium 2023-0 Yes [id number] 500mg Take 1 Uni vers carbonate 5-29 tablet by ity o f 500 mg 00:00: mouth in [place] calcium 00 the Medical (1,250 mg) morning. Branc h tablet B 3-0 Yes [id number] 1{tbl} Take 1 Univ ers Complex-Fol 5-29 tablet by ity of ic Acid (B 00:00: mouth [place] COMPLEX 1, 00 the Medical WITH FOLIC morning. Branc h ACID,) 0.4 mg Tab ergocalcife 2023-0 Yes [id number] Take 1 [facility] rol, 5-29 capsule by ity of vitamin d2, 00:00: mouth [place] 1,250 mcg 00 weekly. Medical (50,000 Branch unit) capsule calcium 2023-0 Yes [id number] 500mg Take 1 Uni vers carbonate 5-29 tablet by ity o f 500 mg 00:00: mouth in [place] calcium 00 the Medical (1,250 mg) morning. Branc h tablet B 3-0 Yes [id number] 1{tbl} Take 1 Univ ers Complex-Fol 5-29 tablet by ity of ic Acid (B 00:00: mouth in [place] COMPLEX 1, 00 the Medical WITH FOLIC morning. Branc h ACID,) 0.4 mg Tab ergocalcife 2023-0 Yes [id number] Take 1 [facility] rol, 5-29 capsule by ity of vitamin d2, 00:00: mouth [place] 1,250 mcg 00 weekly. Medical (50,000 Branch unit) capsule calcium 2023-0 Yes [id number] 500mg Take 1 Uni vers carbonate 5-29 tablet by ity o f 500 mg 00:00: mouth in [place] calcium 00 the Medical (1,250 mg) morning. Branc h tablet B 3-0 Yes [id number] 1{tbl} Take 1 Univ ers Complex-Fol 5-29 tablet by ity of ic Acid (B 00:00: mouth [place]X 1, 00 the Medical WITH FOLIC morning. Branc h ACID,) 0.4 mg Tab ergocalcife 2023-0 Yes [id number] Take 1 [facility] rol, 5-29 capsule by ity of vitamin d2, 00:00: mouth [place] 1,250 mcg 00 weekly. Medical (50,000 Branch unit) capsule calcium 2023-0 Yes [id number] 500mg Take 1 Uni vers carbonate 5-29 tablet by ity o f 500 mg 00:00: mouth in [place] calcium 00 the Medical (1,250 mg) morning. Branc h tablet B 3-0 Yes [id number] 1{tbl} Take 1 Univ ers Complex-Fol 5-29 tablet by ity of ic Acid (B 00:00: mouth [place] 1, 00 the Medical WITH FOLIC morning. Branc h ACID,) 0.4 mg Tab ergocalcife 2023-0 Yes [id number] Take 1 [facility] rol, 5-29 capsule by ity of vitamin d2, 00:00: mouth [place] 1,250 mcg 00 weekly. Medical (50,000 Branch unit) capsule calcium 2023-0 Yes [id number] 500mg Take 1 Uni vers carbonate 5-29 tablet by ity o f 500 mg 00:00: mouth in [place] calcium 00 the Medical (1,250 mg) morning. Branc h tablet B 3-0 Yes [id number] 1{tbl} Take 1 Univ ers Complex-Fol 5-29 tablet by ity of ic Acid (B 00:00: mouth in [place] 1, 00 the Medical WITH FOLIC morning. Branc h ACID,) 0.4 mg Tab ergocalcife 2023-0 Yes [id number] Take 1 [facility] rol, 5-29 capsule by ity of vitamin d2, 00:00: mouth [place] 1,250 mcg 00 weekly. Medical (50,000 Branch unit) capsule calcium 2023-0 Yes [id number] 500mg Take 1 Uni vers carbonate 5-29 tablet by ity o f 500 mg 00:00: mouth in [place] calcium 00 the Medical (1,250 mg) morning. Branc h tablet B 3-0 Yes [id number] 1{tbl} Take 1 Univ ers Complex-Fol 5-29 tablet by ity of ic Acid (B 00:00: mouth in [place]X 1, 00 the Medical WITH FOLIC morning. Branc h ACID,) 0.4 mg Tab ergocalcife 2023-0 Yes [id number] Take 1 [facility] rol, 5-29 capsule by ity of vitamin d2, 00:00: mouth [place] 1,250 mcg 00 weekly. Medical (50,000 Branch unit) capsule calcium 2023-0 Yes [id number] 500mg Take 1 Uni vers carbonate 5-29 tablet by ity o f 500 mg 00:00: mouth in [place] calcium 00 the Medical (1,250 mg) morning. Branc h tablet B 2022-0 Yes [id number] 1{tbl} Take 1 Univ ers Complex-Fol 5-29 tablet by ity of ic Acid (B 00:00: mouth in [place] 1, the Medical WITH FOLIC morning. Branc h ACID,) 0.4 mg Tab ergocalcife 2022-0 Yes [id number] Take 1 [facility] rol, 5-29 capsule by ity of vitamin d2, 00:00: mouth [place] 1,250 mcg 00 weekly. Medical (50,000 Branch unit) capsule calcium 2022-0 Yes [id number] 500mg Take 1 Uni vers carbonate 5-29 tablet by ity o f 500 mg 00:00: mouth in [place] calcium 00 the Medical (1,250 mg) morning. Branc h tablet B 2022-0 Yes [id number] 1{tbl} Take 1 Univ ers Complex-Fol 5-29 tablet by ity of ic Acid (B 00:00: mouth in [place] 1, the Medical WITH FOLIC morning. Branc h ACID,) 0.4 mg Tab calcium 2022-0 Yes [id number] 500mg Take 1 Uni vers carbonate 5-29 tablet by ity o f 500 mg 00:00: mouth in [place] calcium 00 the Medical (1,250 mg) morning. Branc h tablet B 2022-0 Yes [id number] 1{tbl} Take 1 Univ ers Complex-Fol 5-29 tablet by ity of ic Acid (B 00:00: mouth in [place] 1, the Medical WITH FOLIC morning. Branc h ACID,) 0.4 mg Tab calcium 3-0 Yes [id number] 500mg Take 1 Uni vers carbonate 5-29 tablet by ity o f 500 mg 00:00: mouth in [place] calcium 00 the Medical (1,250 mg) morning. Branc h tablet B 2022-0 Yes [id number] 1{tbl} Take 1 Univ ers Complex-Fol 5-29 tablet by ity of ic Acid (B 00:00: mouth in [place] 1, 00 the Medical WITH FOLIC morning. Branc h ACID,) 0.4 mg Tab calcium 3-0 Yes [id number] 500mg Take 1 Uni vers carbonate 5-29 tablet by ity o f 500 mg 00:00: mouth in [place] calcium 00 the Medical (1,250 mg) morning. Branc h tablet B 2022-0 Yes [id number] 1{tbl} Take 1 Univ ers Complex-Fol 5-29 tablet by ity of ic Acid (B 00:00: mouth in [place] 1, 00 the Medical WITH FOLIC morning. Branc h ACID,) 0.4 mg Tab calcium 3-0 Yes [id number] 500mg Take 1 Uni vers carbonate 5-29 tablet by ity o f 500 mg 00:00: mouth in [place] calcium 00 the Medical (1,250 mg) morning. Branc h tablet B 2022-0 Yes [id number] 1{tbl} Take 1 Univ ers Complex-Fol 5-29 tablet by ity of ic Acid (B 00:00: mouth in [place] COM[place]X 1, the Medical WITH FOLIC morning. Branc h ACID,) 0.4 mg Tab calcium 2022-0 Yes [id number] 500mg Take 1 Uni vers carbonate 5-29 tablet by ity o f 500 mg 00:00: mouth in [place] calcium 00 the Medical (1,250 mg) morning. Branc h tablet B 2022-0 Yes [id number] 1{tbl} Take 1 Univ ers Complex-Fol 5-29 tablet by ity of ic Acid (B 00:00: mouth in [place] 1, the Medical WITH FOLIC morning. Branc h ACID,) 0.4 mg Tab calcium 3-0 Yes [id number] 500mg Take 1 Uni vers carbonate 5-29 tablet by ity o f 500 mg 00:00: mouth in [place] calcium 00 the Medical (1,250 mg) morning. Branc h tablet B 2022-0 Yes [id number] 1{tbl} Take 1 Univ ers Complex-Fol 5-29 tablet by ity of ic Acid (B 00:00: mouth in [place] COM[place]X 1, 00 the Medical WITH FOLIC morning. Branc h ACID,) 0.4 mg Tab calcium 3-0 Yes [id number] 500mg Take 1 Uni vers carbonate 5-29 tablet by ity o f 500 mg 00:00: mouth in [place] calcium 00 the Medical (1,250 mg) morning. Branc h tablet B 2022-0 Yes [id number] 1{tbl} Take 1 Univ ers Complex-Fol 5-29 tablet by ity of ic Acid (B 00:00: mouth in [place] COM[place]X 1, 00 the Medical WITH FOLIC morning. Branc h ACID,) 0.4 mg Tab calcium 2023-0 Yes [id number] 500mg Take 1 Uni vers carbonate 5-29 tablet by ity o f 500 mg 00:00: mouth in [place] calcium 00 the Medical (1,250 mg) morning. Branc h tablet B 3-0 Yes [id number] 1{tbl} Take 1 Univ ers Complex-Fol 5-29 tablet by ity of ic Acid (B 00:00: mouth in [place]X 1, the Medical WITH FOLIC morning. Branc h ACID,) 0.4 mg Tab calcium 2023-0 Yes [id number] 500mg Take 1 Uni vers carbonate 5-29 tablet by ity o f 500 mg 00:00: mouth in [place] calcium 00 the Medical (1,250 mg) morning. Branc h tablet B 3-0 Yes [id number] 1{tbl} Take 1 Univ ers Complex-Fol 5-29 tablet by ity of ic Acid (B 00:00: mouth in [place]X 1, the Medical WITH FOLIC morning. Branc h ACID,) 0.4 mg Tab calcium 2023-0 Yes [id number] 500mg Take 1 Uni vers carbonate 5-29 tablet by ity o f 500 mg 00:00: mouth in [place] calcium 00 the Medical (1,250 mg) morning. Branc h tablet B 3-0 Yes [id number] 1{tbl} Take 1 Univ ers Complex-Fol 5-29 tablet by ity of ic Acid (B 00:00: mouth in [place]X 1, the Medical WITH FOLIC morning. Branc h ACID,) 0.4 mg Tab calcium 2023-0 Yes [id number] 500mg Take 1 Uni vers carbonate 5-29 tablet by ity o f 500 mg 00:00: mouth in [place] calcium 00 the Medical (1,250 mg) morning. Branc h tablet B 3-0 Yes [id number] 1{tbl} Take 1 Univ ers Complex-Fol 5-29 tablet by ity of ic Acid (B 00:00: mouth in [place]X 1, 00 the Medical WITH FOLIC morning. Branc h ACID,) 0.4 mg Tab calcium 2023-0 Yes [id number] 500mg Take 1 Uni vers carbonate 5-29 tablet by ity o f 500 mg 00:00: mouth in [place] calcium 00 the Medical (1,250 mg) morning. Branc h tablet B 2022-0 Yes [id number] 1{tbl} Take 1 Univ ers Complex-Fol 5-29 tablet by ity of ic Acid (B 00:00: mouth in [place] 1, 00 the Medical WITH FOLIC morning. Branc h ACID,) 0.4 mg Tab calcium 2022-0 Yes [id number] 500mg Take 1 Uni vers carbonate 5-29 tablet by ity o f 500 mg 00:00: mouth in [place] calcium 00 the Medical (1,250 mg) morning. Branc h tablet calcium 2022-0 Yes [id number] 500mg Take 1 Uni vers carbonate 5-29 tablet by ity o f 500 mg 00:00: mouth in [place] calcium 00 the Medical (1,250 mg) morning. Branc h tablet calcium 2022-0 Yes [id number] 500mg Take 1 Uni vers carbonate 5-29 tablet by ity o f 500 mg 00:00: mouth in [place] calcium 00 the Medical (1,250 mg) morning. Branc h tablet calcium 2022-0 Yes [id number] 500mg Take 1 [facility] carbonate 5-29 tablet by [facility] o f 500 mg 00:00: mouth in [place] calcium 00 the Medical (1,250 mg) morning. Branc h tablet calcium 2022-0 Yes [id number] 500mg Take 1 [facility] carbonate 5-29 tablet by it[facility] o f 500 mg 00:00: mouth in [place] calcium 00 the Medical (1,250 mg) morning. Branc h tablet calcium 2022-0 Yes [id number] 500mg Take 1 [facility] carbonate 5-29 tablet by it[facility] o f 500 mg 00:00: mouth in [place] calcium 00 the Medical (1,250 mg) morning. Branc h tablet calcium 3-0 Yes [id number] 500mg Take 1 [facility] carbonate 5-29 tablet by ity o f 500 mg 00:00: mouth in [place] calcium 00 the Medical (1,250 mg) morning. Branc h tablet B 2022-0 2023- No [id number] 1{tbl} Take 1 [facility] Complex-Fol 5-29 - tablet by it y of ic Acid (B 00:00: 00:00 mouth [place] COMPLEX 1, 00 :00 the Medical WITH FOLIC morning. Branc h ACID,) 0.4 mg Tab B 2023-0 2023- No [id number] 1{tbl} Take 1 [facility] Complex-Fol 5-29 -29 tablet by it y of ic Acid (B 00:00: 00:00 mouth [place] COMPLEX 1, 00 :00 the Medical WITH FOLIC morning. Branc h ACID,) 0.4 mg Tab B 2023-0 2023- No [id number] 1{tbl} Take 1 [facility] Complex-Fol 5-29 -29 tablet by it y of ic Acid (B 00:00: 00:00 mouth [place] COMPLEX 1, 00 :00 the Medical WITH FOLIC morning. Branc h ACID,) 0.4 mg Tab B 2023-0 2023- No [id number] 1{tbl} Take 1 [facility] Complex-Fol 5-29 -29 tablet by it y of ic Acid (B 00:00: 00:00 mouth [place] COMPLEX 1, 00 :00 the Medical WITH FOLIC morning. Branc h ACID,) 0.4 mg Tab ergocalcife 2023-0 2023- No [id number] Take 1 [facility] rol, - 07-20 capsule by [facility] of vitamin d2, 00:00: 00:[place] 1,250 mcg 00 :00 weekly. Medical (50,000 Branch unit) capsule ergocalcife 2023-0 2023- No [id number] Take 1 [facility] rol, - 07-20 capsule by [facility] of vitamin d2, 00:00: 00:00 [place] 1,250 mcg 00 :00 weekly. Medical (50,000 Branch unit) capsule ergocalcife 2023-0 2023- No [id number] Take 1 [facility] rol, - 07-20 capsule by ity of vitamin d2, 00:00: 00:00 [place] 1,250 mcg 00 :00 weekly. Medical (50,000 Branch unit) capsule ergocalcife 2023-0 2023- No [id number] Take 1 [facility] rol, - 07-20 capsule by it[facility] of vitamin d2, 00:00: 00:00 [place] 1,250 mcg 00 :00 weekly. Medical (50,000 Branch unit) capsule peg-electro 2022-0 2023- No 4000mL Take 4,000 [facility] lyte soln 4-21 04-22 mL by ity of (GOLYTELY) 00:00: 04:59 mouth once [place] 236-22.74-6 00 :00 now for 1 Med ical .74 -5.86 dose. Branch gram solution triamterene 0 Yes [id number] 1{tbl} Take 1 [facility] -hydrochlor 4-06 tablet by ity of othiazid 00:00: mouth in [place] 37.5-25 mg 00 the Medical tablet morning. Branch terazosin 5 0 Yes [id number] 5mg Take 1 [facility] mg capsule 4-06 capsule by ity of 00:00: mouth [place] 00 every Medical evening. Branch cloNIDine 0 Yes [id number] .2mg Take 1 [facility] nivers 0.2 mg 4-06 tablet by ity of tablet 00:00: mouth 3 [place] 00 (three) Medical times Branch daily as needed (Hypertens ion). Take 1 [facility] TID PRN if BP >150/90 carvediloL 0 Yes [id number] 25mg Take 1 [facility] 25 mg 4-06 tablet by ity of tablet 00:00: mouth in [place] 00 the Medical morning Branch and 1 tablet in the evening. Take with meals. TAKE ONE (1) TABLET(S) BY MOUTH TWICE A DAY WITH FOOD. amLODIPine- 0 Yes [id number] 1{capsu Take 1 [facility] benazepriL 4-06 le} capsule by ity of 10-40 mg 00:00: mouth in [place] per capsule 00 the Medical morning. Branch tiZANidine 0 Yes [id number] 2mg Take 1 [facility] 2 mg tablet 4-06 tablet by ity of 00:00: mouth [place] 00 every 8 Medical (eight) Branch hours as needed (muscle spasms). metFORMIN 0 Yes [id number] TAKE ONE [facility] 1,000 mg 4-06 (1) ity of tablet 00:00: TABLET(S) [place] 00 BY MOUTH Medical EVERY Branch TWELVE HOURS WITH MORNING AND EVENING MEALS. atorvastati 0 Yes [id number] 40mg Take 1 [facility] n 40 mg 4-06 tablet by ity of tablet 00:00: mouth at [place] 00 bedtime. Medical Branch traZODone 0 Yes [id number] 50mg Take 1 [facility] vers 50 mg 4-06 tablet by ity of tablet 00:00: mouth at [place] 00 bedtime. Medical Branch FLUoxetine 0 Yes [id number] 20mg Take 1 [facility] nivers 20 mg 4-06 capsule by ity of capsule 00:00: mouth in [place] 00 the Medical morning. Branch triamterene Yes [id number] 1{tbl} Take 1 [facility] -hydrochlor 4-06 tablet by ity of othiazid 00:00: mouth in [place] 37.5-25 mg 00 the Medical tablet morning. Branch terazosin 5 Yes [id number] 5mg Take 1 [facility] mg capsule 4-06 capsule by ity of 00:00: mouth [place] 00 every Medical evening. Branch cloNIDine Yes [id number] .2mg Take 1 [facility] nivers 0.2 mg 4-06 tablet by ity of tablet 00:00: mouth 3 [place] 00 (three) Medical times Branch daily as needed (Hypertens ion). Take 1 [facility] TID PRN if BP >150/90 carvediloL Yes [id number] 25mg Take 1 [facility] 25 mg 4-06 tablet by ity of tablet 00:00: mouth in [place] 00 the Medical morning Branch and 1 tablet in the evening. Take with meals. TAKE ONE (1) TABLET(S) BY MOUTH TWICE A DAY WITH FOOD. amLODIPine- Yes [id number] 1{capsu Take 1 [facility] benazepriL 4-06 le} capsule by ity of 10-40 mg 00:00: mouth in [place] per capsule 00 the Medical morning. Branch tiZANidine Yes [id number] 2mg Take 1 [facility] 2 mg tablet 4-06 tablet by ity of 00:00: mouth [place] 00 every 8 Medical (eight) Branch hours as needed (muscle spasms). metFORMIN 0 Yes [id number] TAKE ONE [facility] 1,000 mg 4-06 (1) ity of tablet 00:00: TABLET(S) [place] 00 BY MOUTH Medical EVERY Branch TWELVE HOURS WITH MORNING AND EVENING MEALS. atorvastati Yes [id number] 40mg Take 1 [facility] n 40 mg 4-06 tablet by ity of tablet 00:00: mouth at [place] 00 bedtime. Medical Branch traZODone 0 Yes [id number] 50mg Take 1 [facility] vers 50 mg 4-06 tablet by ity of tablet 00:00: mouth at [place] 00 bedtime. Medical Branch FLUoxetine 0 Yes [id number] 20mg Take 1 [facility] nivers 20 mg 4-06 capsule by ity of capsule 00:00: mouth in [place] 00 the Medical morning. Branch triamterene Yes [id number] 1{tbl} Take 1 [facility] -hydrochlor 4-06 tablet by ity of othiazid 00:00: mouth in [place] 37.5-25 mg 00 the Medical tablet morning. Branch terazosin 5 Yes [id number] 5mg Take 1 [facility] mg capsule 4-06 capsule by ity of 00:00: mouth [place] 00 every Medical evening. Branch cloNIDine Yes [id number] .2mg Take 1 [facility] nivers 0.2 mg 4-06 tablet by ity of tablet 00:00: mouth 3 [place] 00 (three) Medical times Branch daily as needed (Hypertens ion). Take 1 [facility] TID PRN if BP >150/90 carvediloL Yes [id number] 25mg Take 1 [facility] 25 mg 4-06 tablet by ity of tablet 00:00: mouth in [place] 00 the Medical morning Branch and 1 tablet in the evening. Take with meals. TAKE ONE (1) TABLET(S) BY MOUTH TWICE A DAY WITH FOOD. amLODIPine- Yes [id number] 1{capsu Take 1 [facility] benazepriL 4-06 le} capsule by ity of 10-40 mg 00:00: mouth in [place] per capsule 00 the Medical morning. Branch tiZANidine Yes [id number] 2mg Take 1 [facility] 2 mg tablet 4-06 tablet by ity of 00:00: mouth [place] 00 every 8 Medical (eight) Branch hours as needed (muscle spasms). metFORMIN 0 Yes [id number] TAKE ONE [facility] 1,000 mg 4-06 (1) ity of tablet 00:00: TABLET(S) [place] 00 BY MOUTH Medical EVERY Branch TWELVE HOURS WITH MORNING AND EVENING MEALS. atorvastati Yes [id number] 40mg Take 1 [facility] n 40 mg 4-06 tablet by ity of tablet 00:00: mouth at [place] 00 bedtime. Medical Branch traZODone 0 Yes [id number] 50mg Take 1 [facility] vers 50 mg 4-06 tablet by ity of tablet 00:00: mouth at [place] 00 bedtime. Medical Branch FLUoxetine 2022-0 Yes [id number] 20mg Take 1 [facility] nivers 20 mg 4-06 capsule by ity of capsule 00:00: mouth in [place] 00 the Medical morning. Branch triamterene Yes [id number] 1{tbl} Take 1 [facility] -hydrochlor 4-06 tablet by ity of othiazid 00:00: mouth in [place] 37.5-25 mg 00 the Medical tablet morning. Branch terazosin 5 Yes [id number] 5mg Take 1 [facility] mg capsule 4-06 capsule by ity of 00:00: mouth [place] 00 every Medical evening. Branch cloNIDine Yes [id number] .2mg Take 1 [facility] nivers 0.2 mg 4-06 tablet by ity of tablet 00:00: mouth 3 [place] 00 (three) Medical times Branch daily as needed (Hypertens ion). Take 1 [facility] TID PRN if BP >150/90 carvediloL Yes [id number] 25mg Take 1 [facility] 25 mg 4-06 tablet by ity of tablet 00:00: mouth in [place] 00 the Medical morning Branch and 1 tablet in the evening. Take with meals. TAKE ONE (1) TABLET(S) BY MOUTH TWICE A DAY WITH FOOD. amLODIPine- Yes [id number] 1{capsu Take 1 [facility] benazepriL 4-06 le} capsule by ity of 10-40 mg 00:00: mouth in [place] per capsule 00 the Medical morning. Branch tiZANidine Yes [id number] 2mg Take 1 [facility] 2 mg tablet 4-06 tablet by ity of 00:00: mouth [place] 00 every 8 Medical (eight) Branch hours as needed (muscle spasms). metFORMIN 2022-0 Yes [id number] TAKE ONE [facility] 1,000 mg 4-06 (1) ity of tablet 00:00: TABLET(S) [place] 00 BY MOUTH Medical EVERY Branch TWELVE HOURS WITH MORNING AND EVENING MEALS. atorvastati Yes [id number] 40mg Take 1 [facility] n 40 mg 4-06 tablet by ity of tablet 00:00: mouth at [place] 00 bedtime. Medical Branch traZODone 0 Yes [id number] 50mg Take 1 [facility] vers 50 mg 4-06 tablet by ity of tablet 00:00: mouth at [place] 00 bedtime. Medical Branch FLUoxetine 0 Yes [id number] 20mg Take 1 [facility] nivers 20 mg 4-06 capsule by ity of capsule 00:00: mouth in [place] 00 the Medical morning. Branch triamterene Yes [id number] 1{tbl} Take 1 [facility] -hydrochlor 4-06 tablet by ity of othiazid 00:00: mouth in [place] 37.5-25 mg 00 the Medical tablet morning. Branch terazosin 5 Yes [id number] 5mg Take 1 [facility] mg capsule 4-06 capsule by ity of 00:00: mouth [place] 00 every Medical evening. Branch cloNIDine Yes [id number] .2mg Take 1 [facility] nivers 0.2 mg 4-06 tablet by ity of tablet 00:00: mouth 3 [place] 00 (three) Medical times Branch daily as needed (Hypertens ion). Take 1 [facility] TID PRN if BP >150/90 carvediloL Yes [id number] 25mg Take 1 [facility] 25 mg 4-06 tablet by ity of tablet 00:00: mouth in [place] 00 the Medical morning Branch and 1 tablet in the evening. Take with meals. TAKE ONE (1) TABLET(S) BY MOUTH TWICE A DAY WITH FOOD. amLODIPine- Yes [id number] 1{capsu Take 1 [facility] benazepriL 4-06 le} capsule by ity of 10-40 mg 00:00: mouth in [place] per capsule 00 the Medical morning. Branch tiZANidine Yes [id number] 2mg Take 1 [facility] 2 mg tablet 4-06 tablet by ity of 00:00: mouth [place] 00 every 8 Medical (eight) Branch hours as needed (muscle spasms). metFORMIN 0 Yes [id number] TAKE ONE [facility] 1,000 mg 4-06 (1) ity of tablet 00:00: TABLET(S) [place] 00 BY MOUTH Medical EVERY Branch TWELVE HOURS WITH MORNING AND EVENING MEALS. atorvastati Yes [id number] 40mg Take 1 [facility] n 40 mg 4-06 tablet by ity of tablet 00:00: mouth at [place] 00 bedtime. Medical Branch traZODone 0 Yes [id number] 50mg Take 1 [facility] vers 50 mg 4-06 tablet by ity of tablet 00:00: mouth at [place] 00 bedtime. Medical Branch FLUoxetine 2022-0 Yes [id number] 20mg Take 1 [facility] nivers 20 mg 4-06 capsule by ity of capsule 00:00: mouth in [place] 00 the Medical morning. Branch triamterene Yes [id number] 1{tbl} Take 1 [facility] -hydrochlor 4-06 tablet by ity of othiazid 00:00: mouth in [place] 37.5-25 mg 00 the Medical tablet morning. Branch terazosin 5 Yes [id number] 5mg Take 1 [facility] mg capsule 4-06 capsule by ity of 00:00: mouth [place] 00 every Medical evening. Branch cloNIDine Yes [id number] .2mg Take 1 [facility] nivers 0.2 mg 4-06 tablet by ity of tablet 00:00: mouth 3 [place] 00 (three) Medical times Branch daily as needed (Hypertens ion). Take 1 [facility] TID PRN if BP >150/90 carvediloL Yes [id number] 25mg Take 1 [facility] 25 mg 4-06 tablet by ity of tablet 00:00: mouth in [place] 00 the Medical morning Branch and 1 tablet in the evening. Take with meals. TAKE ONE (1) TABLET(S) BY MOUTH TWICE A DAY WITH FOOD. amLODIPine- Yes [id number] 1{capsu Take 1 [facility] benazepriL 4-06 le} capsule by ity of 10-40 mg 00:00: mouth in [place] per capsule 00 the Medical morning. Branch tiZANidine Yes [id number] 2mg Take 1 [facility] 2 mg tablet 4-06 tablet by ity of 00:00: mouth [place] 00 every 8 Medical (eight) Branch hours as needed (muscle spasms). metFORMIN 0 Yes [id number] TAKE ONE [facility] 1,000 mg 4-06 (1) ity of tablet 00:00: TABLET(S) [place] 00 BY MOUTH Medical EVERY Branch TWELVE HOURS WITH MORNING AND EVENING MEALS. atorvastati Yes [id number] 40mg Take 1 [facility] n 40 mg 4-06 tablet by ity of tablet 00:00: mouth at [place] 00 bedtime. Medical Branch traZODone 0 Yes [id number] 50mg Take 1 [facility] vers 50 mg 4-06 tablet by ity of tablet 00:00: mouth at [place] 00 bedtime. Medical Branch FLUoxetine 0 Yes [id number] 20mg Take 1 [facility] nivers 20 mg 4-06 capsule by ity of capsule 00:00: mouth in [place] 00 the Medical morning. Branch triamterene Yes [id number] 1{tbl} Take 1 [facility] -hydrochlor 4-06 tablet by ity of othiazid 00:00: mouth in [place] 37.5-25 mg 00 the Medical tablet morning. Branch terazosin 5 Yes [id number] 5mg Take 1 [facility] mg capsule 4-06 capsule by ity of 00:00: mouth [place] 00 every Medical evening. Branch cloNIDine Yes [id number] .2mg Take 1 [facility] nivers 0.2 mg 4-06 tablet by ity of tablet 00:00: mouth 3 [place] 00 (three) Medical times Branch daily as needed (Hypertens ion). Take 1 [facility] TID PRN if BP >150/90 carvediloL Yes [id number] 25mg Take 1 [facility] 25 mg 4-06 tablet by ity of tablet 00:00: mouth in [place] 00 the Medical morning Branch and 1 tablet in the evening. Take with meals. TAKE ONE (1) TABLET(S) BY MOUTH TWICE A DAY WITH FOOD. amLODIPine- Yes [id number] 1{capsu Take 1 [facility] benazepriL 4-06 le} capsule by ity of 10-40 mg 00:00: mouth in [place] per capsule 00 the Medical morning. Branch tiZANidine Yes [id number] 2mg Take 1 [facility] 2 mg tablet 4-06 tablet by ity of 00:00: mouth [place] 00 every 8 Medical (eight) Branch hours as needed (muscle spasms). metFORMIN Yes [id number] TAKE ONE [facility] 1,000 mg 4-06 (1) ity of tablet 00:00: TABLET(S) [place] 00 BY MOUTH Medical EVERY Branch TWELVE HOURS WITH MORNING AND EVENING MEALS. atorvastati 0 Yes [id number] 40mg Take 1 [facility] n 40 mg 4-06 tablet by ity of tablet 00:00: mouth at [place] 00 bedtime. Medical Branch traZODone 2022-0 Yes [id number] 50mg Take 1 [facility] vers 50 mg 4-06 tablet by ity of tablet 00:00: mouth at [place] 00 bedtime. Medical Branch FLUoxetine 2022-0 Yes [id number] 20mg Take 1 [facility] nivers 20 mg 4-06 capsule by ity of capsule 00:00: mouth in [place] 00 the Medical morning. Branch triamterene Yes [id number] 1{tbl} Take 1 [facility] -hydrochlor 4-06 tablet by ity of othiazid 00:00: mouth in [place] 37.5-25 mg 00 the Medical tablet morning. Branch terazosin 5 0 Yes [id number] 5mg Take 1 [facility] mg capsule 4-06 capsule by ity of 00:00: mouth [place] 00 every Medical evening. Branch cloNIDine Yes [id number] .2mg Take 1 [facility] nivers 0.2 mg 4-06 tablet by ity of tablet 00:00: mouth 3 [place] 00 (three) Medical times Branch daily as needed (Hypertens ion). Take 1 [facility] TID PRN if BP >150/90 carvediloL Yes [id number] 25mg Take 1 [facility] 25 mg 4-06 tablet by ity of tablet 00:00: mouth in [place] 00 the Medical morning Branch and 1 tablet in the evening. Take with meals. TAKE ONE (1) TABLET(S) BY MOUTH TWICE A DAY WITH FOOD. amLODIPine- Yes [id number] 1{capsu Take 1 [facility] benazepriL 4-06 le} capsule by ity of 10-40 mg 00:00: mouth in [place] per capsule 00 the Medical morning. Branch tiZANidine 2022-0 Yes [id number] 2mg Take 1 [facility] 2 mg tablet 4-06 tablet by ity of 00:00: mouth [place] 00 every 8 Medical (eight) Branch hours as needed (muscle spasms). metFORMIN 2022-0 Yes [id number] TAKE ONE [facility] 1,000 mg 4-06 (1) ity of tablet 00:00: TABLET(S) [place] 00 BY MOUTH Medical EVERY Branch TWELVE HOURS WITH MORNING AND EVENING MEALS. atorvastati Yes [id number] 40mg Take 1 [facility] n 40 mg 4-06 tablet by ity of tablet 00:00: mouth at [place] 00 bedtime. Medical Branch traZODone 0 Yes [id number] 50mg Take 1 [facility] vers 50 mg 4-06 tablet by ity of tablet 00:00: mouth at [place] 00 bedtime. Medical Branch FLUoxetine Yes [id number] 20mg Take 1 [facility] nivers 20 mg 4-06 capsule by ity of capsule 00:00: mouth in [place] 00 the Medical morning. Branch triamterene Yes [id number] 1{tbl} Take 1 [facility] -hydrochlor 4-06 tablet by ity of othiazid 00:00: mouth in [place] 37.5-25 mg 00 the Medical tablet morning. Branch terazosin 5 Yes [id number] 5mg Take 1 [facility] mg capsule 4-06 capsule by ity of 00:00: mouth [place] 00 every Medical evening. Branch cloNIDine Yes [id number] .2mg Take 1 [facility] nivers 0.2 mg 4-06 tablet by ity of tablet 00:00: mouth 3 [place] 00 (three) Medical times Branch daily as needed (Hypertens ion). Take 1 [facility] TID PRN if BP >150/90 carvediloL Yes [id number] 25mg Take 1 [facility] 25 mg 4-06 tablet by ity of tablet 00:00: mouth in [place] 00 the Medical morning Branch and 1 tablet in the evening. Take with meals. TAKE ONE (1) TABLET(S) BY MOUTH TWICE A DAY WITH FOOD. amLODIPine- Yes [id number] 1{capsu Take 1 [facility] benazepriL 4-06 le} capsule by ity of 10-40 mg 00:00: mouth in [place] per capsule 00 the Medical morning. Branch tiZANidine Yes [id number] 2mg Take 1 [facility] 2 mg tablet 4-06 tablet by ity of 00:00: mouth [place] 00 every 8 Medical (eight) Branch hours as needed (muscle spasms). metFORMIN Yes [id number] TAKE ONE [facility] 1,000 mg 4-06 (1) ity of tablet 00:00: TABLET(S) [place] 00 BY MOUTH Medical EVERY Branch TWELVE HOURS WITH MORNING AND EVENING MEALS. atorvastati Yes [id number] 40mg Take 1 [facility] n 40 mg 4-06 tablet by ity of tablet 00:00: mouth at [place] 00 bedtime. Medical Branch traZODone Yes [id number] 50mg Take 1 [facility] vers 50 mg 4-06 tablet by ity of tablet 00:00: mouth at [place] 00 bedtime. Medical Branch FLUoxetine Yes [id number] 20mg Take 1 [facility] nivers 20 mg 4-06 capsule by ity of capsule 00:00: mouth in [place] 00 the Medical morning. Branch triamterene Yes [id number] 1{tbl} Take 1 [facility] -hydrochlor 4-06 tablet by ity of othiazid 00:00: mouth in [place] 37.5-25 mg 00 the Medical tablet morning. Branch terazosin 5 Yes [id number] 5mg Take 1 [facility] mg capsule 4-06 capsule by ity of 00:00: mouth [place] 00 every Medical evening. Branch cloNIDine Yes [id number] .2mg Take 1 [facility] nivers 0.2 mg 4-06 tablet by ity of tablet 00:00: mouth 3 [place] 00 (three) Medical times Branch daily as needed (Hypertens ion). Take 1 [facility] TID PRN if BP >150/90 carvediloL Yes [id number] 25mg Take 1 [facility] 25 mg 4-06 tablet by ity of tablet 00:00: mouth in [place] 00 the Medical morning Branch and 1 tablet in the evening. Take with meals. TAKE ONE (1) TABLET(S) BY MOUTH TWICE A DAY WITH FOOD. amLODIPine- Yes [id number] 1{capsu Take 1 [facility] benazepriL 4-06 le} capsule by ity of 10-40 mg 00:00: mouth in [place] per capsule 00 the Medical morning. Branch tiZANidine Yes [id number] 2mg Take 1 [facility] 2 mg tablet 4-06 tablet by ity of 00:00: mouth [place] 00 every 8 Medical (eight) Branch hours as needed (muscle spasms). metFORMIN Yes [id number] TAKE ONE [facility] 1,000 mg 4-06 (1) ity of tablet 00:00: TABLET(S) [place] 00 BY MOUTH Medical EVERY Branch TWELVE HOURS WITH MORNING AND EVENING MEALS. atorvastati 0 Yes [id number] 40mg Take 1 [facility] n 40 mg 4-06 tablet by ity of tablet 00:00: mouth at [place] [address] bedtime. Medical Branch traZODone 0 Yes [id number] 50mg Take 1 [facility] vers 50 mg 4-06 tablet by ity of tablet 00:00: mouth at [place] 00 bedtime. Medical Branch FLUoxetine Yes [id number] 20mg Take 1 [facility] nivers 20 mg 4-06 capsule by ity of capsule 00:00: mouth in [place] 00 the Medical morning. Branch triamterene Yes [id number] 1{tbl} Take 1 [facility] -hydrochlor 4-06 tablet by ity of othiazid 00:00: mouth in [place] 37.5-25 mg 00 the Medical tablet morning. Branch terazosin 5 Yes [id number] 5mg Take 1 [facility] mg capsule 4-06 capsule by ity of 00:00: mouth [place] 00 every Medical evening. Branch cloNIDine Yes [id number] .2mg Take 1 [facility] nivers 0.2 mg 4-06 tablet by ity of tablet 00:00: mouth 3 [place] 00 (three) Medical times Branch daily as needed (Hypertens ion). Take 1 [facility] TID PRN if BP >150/90 carvediloL Yes [id number] 25mg Take 1 [facility] 25 mg 4-06 tablet by ity of tablet 00:00: mouth in [place] 00 the Medical morning Branch and 1 tablet in the evening. Take with meals. TAKE ONE (1) TABLET(S) BY MOUTH TWICE A DAY WITH FOOD. amLODIPine- Yes [id number] 1{capsu Take 1 [facility] benazepriL 4-06 le} capsule by ity of 10-40 mg 00:00: mouth in [place] per capsule 00 the Medical morning. Branch tiZANidine Yes [id number] 2mg Take 1 [facility] 2 mg tablet 4-06 tablet by ity of 00:00: mouth [place] 00 every 8 Medical (eight) Branch hours as needed (muscle spasms). metFORMIN Yes [id number] TAKE ONE [facility] 1,000 mg 4-06 (1) ity of tablet 00:00: TABLET(S) [place] 00 BY MOUTH Medical EVERY Branch TWELVE HOURS WITH MORNING AND EVENING MEALS. atorvastati 0 Yes [id number] 40mg Take 1 [facility] n 40 mg 4-06 tablet by ity of tablet 00:00: mouth at [place] [address] bedtime. Medical Branch traZODone 0 Yes [id number] 50mg Take 1 [facility] vers 50 mg 4-06 tablet by ity of tablet 00:00: mouth at [place] 00 bedtime. Medical Branch FLUoxetine Yes [id number] 20mg Take 1 [facility] nivers 20 mg 4-06 capsule by ity of capsule 00:00: mouth in [place] 00 the Medical morning. Branch triamterene Yes [id number] 1{tbl} Take 1 [facility] -hydrochlor 4-06 tablet by ity of othiazid 00:00: mouth in [place] 37.5-25 mg 00 the Medical tablet morning. Branch terazosin 5 Yes [id number] 5mg Take 1 [facility] mg capsule 4-06 capsule by ity of 00:00: mouth [place] 00 every Medical evening. Branch cloNIDine Yes [id number] .2mg Take 1 [facility] nivers 0.2 mg 4-06 tablet by ity of tablet 00:00: mouth 3 [place] 00 (three) Medical times Branch daily as needed (Hypertens ion). Take 1 [facility] TID PRN if BP >150/90 carvediloL Yes [id number] 25mg Take 1 [facility] 25 mg 4-06 tablet by ity of tablet 00:00: mouth in [place] 00 the Medical morning Branch and 1 tablet in the evening. Take with meals. TAKE ONE (1) TABLET(S) BY MOUTH TWICE A DAY WITH FOOD. amLODIPine- Yes [id number] 1{capsu Take 1 [facility] benazepriL 4-06 le} capsule by ity of 10-40 mg 00:00: mouth in [place] per capsule 00 the Medical morning. Branch tiZANidine Yes [id number] 2mg Take 1 [facility] 2 mg tablet 4-06 tablet by ity of 00:00: mouth [place] 00 every 8 Medical (eight) Branch hours as needed (muscle spasms). metFORMIN Yes [id number] TAKE ONE [facility] 1,000 mg 4-06 (1) ity of tablet 00:00: TABLET(S) [place] 00 BY MOUTH Medical EVERY Branch TWELVE HOURS WITH MORNING AND EVENING MEALS. atorvastati Yes [id number] 40mg Take 1 [facility] n 40 mg 4-06 tablet by ity of tablet 00:00: mouth at [place] [address] bedtime. Medical Branch traZODone Yes [id number] 50mg Take 1 [facility] vers 50 mg 4-06 tablet by ity of tablet 00:00: mouth at [place] 00 bedtime. Medical Branch FLUoxetine Yes [id number] 20mg Take 1 [facility] nivers 20 mg 4-06 capsule by ity of capsule 00:00: mouth in [place] 00 the Medical morning. Branch triamterene Yes [id number] 1{tbl} Take 1 [facility] -hydrochlor 4-06 tablet by ity of othiazid 00:00: mouth in [place] 37.5-25 mg 00 the Medical tablet morning. Branch terazosin 5 Yes [id number] 5mg Take 1 [facility] mg capsule 4-06 capsule by ity of 00:00: mouth [place] 00 every Medical evening. Branch cloNIDine Yes [id number] .2mg Take 1 [facility] nivers 0.2 mg 4-06 tablet by ity of tablet 00:00: mouth 3 [place] 00 (three) Medical times Branch daily as needed (Hypertens ion). Take 1 [facility] TID PRN if BP >150/90 carvediloL Yes [id number] 25mg Take 1 [facility] 25 mg 4-06 tablet by ity of tablet 00:00: mouth in [place] 00 the Medical morning Branch and 1 tablet in the evening. Take with meals. TAKE ONE (1) TABLET(S) BY MOUTH TWICE A DAY WITH FOOD. amLODIPine- Yes [id number] 1{capsu Take 1 [facility] benazepriL 4-06 le} capsule by ity of 10-40 mg 00:00: mouth in [place] per capsule 00 the Medical morning. Branch tiZANidine Yes [id number] 2mg Take 1 [facility] 2 mg tablet 4-06 tablet by ity of 00:00: mouth [place] 00 every 8 Medical (eight) Branch hours as needed (muscle spasms). metFORMIN Yes [id number] TAKE ONE [facility] 1,000 mg 4-06 (1) ity of tablet 00:00: TABLET(S) [place] 00 BY MOUTH Medical EVERY Branch TWELVE HOURS WITH MORNING AND EVENING MEALS. atorvastati Yes [id number] 40mg Take 1 [facility] n 40 mg 4-06 tablet by ity of tablet 00:00: mouth at [place] 00 bedtime. Medical Branch traZODone Yes [id number] 50mg Take 1 [facility] vers 50 mg 4-06 tablet by [facility]y of tablet 00:00: mouth at [place] 00 bedtime. Medical Branch FLUoxetine Yes [id number] 20mg Take 1 [facility] nivers 20 mg 4-06 capsule by [facility] capsule 00:00: mouth in [place] 00 the Medical morning. Branch triamterene Yes [id number] 1{tbl} Take 1 [facility] -hydrochlor 4-06 tablet by [facility] of othiazid 00:00: mouth in [place] 37.5-25 mg 00 the Medical tablet morning. Branch terazosin 5 Yes [id number] 5mg Take 1 [facility] mg capsule 4-06 capsule by [facility] of 00:00: mouth [place] 00 every Medical evening. Branch cloNIDine Yes [id number] .2mg Take 1 [facility] nivers 0.2 mg 4-06 tablet by [facility] of tablet 00:00: mouth 3 [place] 00 (three) Medical times Branch daily as needed (Hypertens ion). Take 1 [facility] TID PRN if BP >150/90 carvediloL Yes [id number] 25mg Take 1 [facility] 25 mg 4-06 tablet by [facility] tablet 00:00: mouth in [place] 00 the Medical morning Branch and 1 tablet in the evening. Take with meals. TAKE ONE (1) TABLET(S) BY MOUTH TWICE A DAY WITH FOOD. amLODIPine- Yes [id number] 1{capsu Take 1 [facility] benazepriL 4-06 le} capsule by [facility] of 10-40 mg 00:00: mouth in [place] per capsule 00 the Medical morning. Branch tiZANidine Yes [id number] 2mg Take 1 [facility] 2 mg tablet 4-06 tablet by [facility] of 00:00: mouth [place] 00 every 8 Medical (eight) Branch hours as needed (muscle spasms). metFORMIN 0 Yes [id number] TAKE ONE [facility] 1,000 mg 4-06 (1) [facility] tablet 00:00: TABLET(S) [place] 00 BY MOUTH Medical EVERY Branch TWELVE HOURS WITH MORNING AND EVENING MEALS. atorvastati Yes [id number] 40mg Take 1 [facility] n 40 mg 4-06 tablet by [facility] of tablet 00:00: mouth at [place] [address] bedtime. Medical Branch traZODone Yes [id number] 50mg Take 1 [facility] vers 50 mg 4-06 tablet by [facility] of tablet 00:00: mouth at [place] 00 bedtime. Medical Branch FLUoxetine Yes [id number] 20mg Take 1 [facility] nivers 20 mg 4-06 capsule by [facility] of capsule 00:00: mouth in [place] 00 the Medical morning. Branch triamterene Yes [id number] 1{tbl} Take 1 [facility] -hydrochlor 4-06 tablet by [facility] of othiazid 00:00: mouth in [place] 37.5-25 mg 00 the Medical tablet morning. Branch terazosin 5 Yes [id number] 5mg Take 1 [facility] mg capsule 4-06 capsule by [facility] of 00:00: mouth [place] 00 every Medical evening. Branch cloNIDine Yes [id number] .2mg Take 1 [facility] nivers 0.2 mg 4-06 tablet by [facility] of tablet 00:00: mouth 3 [place] 00 (three) Medical times Branch daily as needed (Hypertens ion). Take 1 [facility] TID PRN if BP >150/90 carvediloL Yes [id number] 25mg Take 1 [facility] 25 mg 4-06 tablet by [facility] of tablet 00:00: mouth in [place] 00 the Medical morning Branch and 1 tablet in the evening. Take with meals. TAKE ONE (1) TABLET(S) BY MOUTH TWICE A DAY WITH FOOD. amLODIPine- Yes [id number] 1{capsu Take 1 [facility] benazepriL 4-06 le} capsule by [facility] of 10-40 mg 00:00: mouth in [place] per capsule 00 the Medical morning. Branch tiZANidine Yes [id number] 2mg Take 1 [facility] 2 mg tablet 4-06 tablet by [facility] of 00:00: mouth [place] 00 every 8 Medical (eight) Branch hours as needed (muscle spasms). metFORMIN Yes [id number] TAKE ONE [facility] 1,000 mg 4-06 (1) [facility] tablet 00:00: TABLET(S) [place] 00 BY MOUTH Medical EVERY Branch TWELVE HOURS WITH MORNING AND EVENING MEALS. atorvastati Yes [id number] 40mg Take 1 [facility] n 40 mg 4-06 tablet by [facility] of tablet 00:00: mouth at [place] 00 bedtime. Medical Branch traZODone Yes [id number] 50mg Take 1 [facility] vers 50 mg 4-06 tablet by [facility] of tablet 00:00: mouth at [place] 00 bedtime. Medical Branch FLUoxetine Yes [id number] 20mg Take 1 [facility] nivers 20 mg 4-06 capsule by [facility] of capsule 00:00: mouth in [place] 00 the Medical morning. Branch triamterene Yes [id number] 1{tbl} Take 1 [facility] -hydrochlor 4-06 tablet by [facility] of othiazid 00:00: mouth in [place] 37.5-25 mg 00 the Medical tablet morning. Branch terazosin 5 Yes [id number] 5mg Take 1 [facility] mg capsule 4-06 capsule by [facility] of 00:00: mouth [place] 00 every Medical evening. Branch cloNIDine Yes [id number] .2mg Take 1 [facility] nivers 0.2 mg 4-06 tablet by [facility] of tablet 00:00: mouth 3 [place] 00 (three) Medical times Branch daily as needed (Hypertens ion). Take 1 [facility] TID PRN if BP >150/90 carvediloL Yes [id number] 25mg Take 1 [facility] 25 mg 4-06 tablet by [facility] of tablet 00:00: mouth in [place] 00 the Medical morning Branch and 1 tablet in the evening. Take with meals. TAKE ONE (1) TABLET(S) BY MOUTH TWICE A DAY WITH FOOD. amLODIPine- Yes [id number] 1{capsu Take 1 [facility] benazepriL 4-06 le} capsule by [facility] of 10-40 mg 00:00: mouth in [place] per capsule 00 the Medical morning. Branch tiZANidine Yes [id number] 2mg Take 1 [facility] 2 mg tablet 4-06 tablet by [facility] of 00:00: mouth [place] 00 every 8 Medical (eight) Branch hours as needed (muscle spasms). metFORMIN 0 Yes [id number] TAKE ONE [facility] 1,000 mg 4-06 (1) [facility] of tablet 00:00: TABLET(S) [place] 00 BY MOUTH Medical EVERY Branch TWELVE HOURS WITH MORNING AND EVENING MEALS. atorvastati Yes [id number] 40mg Take 1 [facility] n 40 mg 4-06 tablet by [facility] of tablet 00:00: mouth at [place] 00 bedtime. Medical Branch traZODone 0 Yes [id number] 50mg Take 1 [facility] vers 50 mg 4-06 tablet by [facility] of tablet 00:00: mouth at [place] 00 bedtime. Medical Branch FLUoxetine Yes [id number] 20mg Take 1 [facility] nivers 20 mg 4-06 capsule by [facility] of capsule 00:00: mouth in [place] 00 the Medical morning. Branch triamterene Yes [id number] 1{tbl} Take 1 [facility] -hydrochlor 4-06 tablet by [facility] of othiazid 00:00: mouth in [place] 37.5-25 mg 00 the Medical tablet morning. Branch terazosin 5 Yes [id number] 5mg Take 1 [facility] mg capsule 4-06 capsule by [facility] of 00:00: mouth [place] 00 every Medical evening. Branch cloNIDine Yes [id number] .2mg Take 1 [facility] nivers 0.2 mg 4-06 tablet by [facility] of tablet 00:00: mouth 3 [place] 00 (three) Medical times Branch daily as needed (Hypertens ion). Take 1 [facility] TID PRN if BP >150/90 carvediloL Yes [id number] 25mg Take 1 [facility] 25 mg 4-06 tablet by [facility] of tablet 00:00: mouth in [place] 00 the Medical morning Branch and 1 tablet in the evening. Take with meals. TAKE ONE (1) TABLET(S) BY MOUTH TWICE A DAY WITH FOOD. amLODIPine- Yes [id number] 1{capsu Take 1 [facility] benazepriL 4-06 le} capsule by [facility] of 10-40 mg 00:00: mouth in [place] per capsule 00 the Medical morning. Branch tiZANidine Yes [id number] 2mg Take 1 [facility] 2 mg tablet 4-06 tablet by [facility] of 00:00: mouth [place] 00 every 8 Medical (eight) Branch hours as needed (muscle spasms). metFORMIN Yes [id number] TAKE ONE [facility] 1,000 mg 4-06 (1) [facility] of tablet 00:00: TABLET(S) [place] 00 BY MOUTH Medical EVERY Branch TWELVE HOURS WITH MORNING AND EVENING MEALS. atorvastati Yes [id number] 40mg Take 1 [facility] n 40 mg 4-06 tablet by [facility] of tablet 00:00: mouth at [place] [address] bedtime. Medical Branch traZODone Yes [id number] 50mg Take 1 [facility] vers 50 mg 4-06 tablet by [facility] of tablet 00:00: mouth at [place] [address] bedtime. Medical Branch FLUoxetine Yes [id number] 20mg Take 1 [facility] nivers 20 mg 4-06 capsule by [facility] of capsule 00:00: mouth in [place] 00 the Medical morning. Branch triamterene Yes [id number] 1{tbl} Take 1 [facility] -hydrochlor 4-06 tablet by [facility] of othiazid 00:00: mouth in [place] 37.5-25 mg 00 the Medical tablet morning. Branch terazosin 5 Yes [id number] 5mg Take 1 [facility] mg capsule 4-06 capsule by [facility] of 00:00: mouth [place] 00 every Medical evening. Branch cloNIDine Yes [id number] .2mg Take 1 [facility] nivers 0.2 mg 4-06 tablet by [facility] of tablet 00:00: mouth 3 [place] 00 (three) Medical times Branch daily as needed (Hypertens ion). Take 1 [facility] TID PRN if BP >150/90 carvediloL Yes [id number] 25mg Take 1 [facility] 25 mg 4-06 tablet by [facility] of tablet 00:00: mouth in [place] 00 the Medical morning Branch and 1 tablet in the evening. Take with meals. TAKE ONE (1) TABLET(S) BY MOUTH TWICE A DAY WITH FOOD. amLODIPine- Yes [id number] 1{capsu Take 1 [facility] benazepriL 4-06 le} capsule by [facility] of 10-40 mg 00:00: mouth in [place] per capsule 00 the Medical morning. Branch tiZANidine Yes [id number] 2mg Take 1 [facility] 2 mg tablet 4-06 tablet by [facility] of 00:00: mouth [place] 00 every 8 Medical (eight) Branch hours as needed (muscle spasms). metFORMIN 0 Yes [id number] TAKE ONE [facility] 1,000 mg 4-06 (1) [facility] of tablet 00:00: TABLET(S) [place] 00 BY MOUTH Medical EVERY Branch TWELVE HOURS WITH MORNING AND EVENING MEALS. atorvastati Yes [id number] 40mg Take 1 [facility] n 40 mg 4-06 tablet by [facility] of tablet 00:00: mouth at [place] 00 bedtime. Medical Branch traZODone Yes [id number] 50mg Take 1 [facility] vers 50 mg 4-06 tablet by [facility] of tablet 00:00: mouth at [place] 00 bedtime. Medical Branch FLUoxetine Yes [id number] 20mg Take 1 [facility] nivers 20 mg 4-06 capsule by [facility] of capsule 00:00: mouth in [place] 00 the Medical morning. Branch triamterene Yes [id number] 1{tbl} Take 1 [facility] -hydrochlor 4-06 tablet by [facility] of othiazid 00:00: mouth in [place] 37.5-25 mg 00 the Medical tablet morning. Branch terazosin 5 Yes [id number] 5mg Take 1 [facility] mg capsule 4-06 capsule by [facility] of 00:00: mouth [place] 00 every Medical evening. Branch cloNIDine Yes [id number] .2mg Take 1 [facility] nivers 0.2 mg 4-06 tablet by [facility] of tablet 00:00: mouth 3 [place] 00 (three) Medical times Branch daily as needed (Hypertens ion). Take 1 [facility] TID PRN if BP >150/90 carvediloL Yes [id number] 25mg Take 1 [facility] 25 mg 4-06 tablet by [facility] of tablet 00:00: mouth in [place] 00 the Medical morning Branch and 1 tablet in the evening. Take with meals. TAKE ONE (1) TABLET(S) BY MOUTH TWICE A DAY WITH FOOD. amLODIPine- Yes [id number] 1{capsu Take 1 [facility] benazepriL 4-06 le} capsule by [facility] of 10-40 mg 00:00: mouth in [place] per capsule 00 the Medical morning. Branch tiZANidine Yes [id number] 2mg Take 1 [facility] 2 mg tablet 4-06 tablet by [facility] of 00:00: mouth [place] 00 every 8 Medical (eight) Branch hours as needed (muscle spasms). metFORMIN 0 Yes [id number] TAKE ONE [facility] 1,000 mg 4-06 (1) [facility] of tablet 00:00: TABLET(S) [place] 00 BY MOUTH Medical EVERY Branch TWELVE HOURS WITH MORNING AND EVENING MEALS. atorvastati Yes [id number] 40mg Take 1 [facility] n 40 mg 4-06 tablet by [facility] of tablet 00:00: mouth at [place] 00 bedtime. Medical Branch traZODone Yes [id number] 50mg Take 1 [facility] vers 50 mg 4-06 tablet by [facility] of tablet 00:00: mouth at [place] 00 bedtime. Medical Branch FLUoxetine Yes [id number] 20mg Take 1 [facility] nivers 20 mg 4-06 capsule by [facility] of capsule 00:00: mouth in [place] 00 the Medical morning. Branch triamterene Yes [id number] 1{tbl} Take 1 [facility] -hydrochlor 4-06 tablet by [facility] of othiazid 00:00: mouth in [place] 37.5-25 mg 00 the Medical tablet morning. Branch terazosin 5 0 Yes [id number] 5mg Take 1 [facility] mg capsule 4-06 capsule by [facility] of 00:00: mouth [place] 00 every Medical evening. Branch cloNIDine Yes [id number] .2mg Take 1 [facility] nivers 0.2 mg 4-06 tablet by [facility] of tablet 00:00: mouth 3 [place] 00 (three) Medical times Branch daily as needed (Hypertens ion). Take 1 [facility] TID PRN if BP >150/90 carvediloL 0 Yes [id number] 25mg Take 1 [facility] 25 mg 4-06 tablet by [facility] of tablet 00:00: mouth in [place] 00 the Medical morning Branch and 1 tablet in the evening. Take with meals. TAKE ONE (1) TABLET(S) BY MOUTH TWICE A DAY WITH FOOD. amLODIPine- Yes [id number] 1{capsu Take 1 [facility] benazepriL 4-06 le} capsule by [facility] of 10-40 mg 00:00: mouth in [place] per capsule 00 the Medical morning. Branch tiZANidine Yes [id number] 2mg Take 1 [facility] 2 mg tablet 4-06 tablet by [facility] of 00:00: mouth [place] 00 every 8 Medical (eight) Branch hours as needed (muscle spasms). metFORMIN Yes [id number] TAKE ONE [facility] 1,000 mg 4-06 (1) [facility] of tablet 00:00: TABLET(S) [place] 00 BY MOUTH Medical EVERY Branch TWELVE HOURS WITH MORNING AND EVENING MEALS. atorvastati Yes [id number] 40mg Take 1 [facility] n 40 mg 4-06 tablet by [facility] of tablet 00:00: mouth at [place] 00 bedtime. Medical Branch traZODone Yes [id number] 50mg Take 1 [facility] vers 50 mg 4-06 tablet by [facility] of tablet 00:00: mouth at [place] 00 bedtime. Medical Branch FLUoxetine Yes [id number] 20mg Take 1 [facility] nivers 20 mg 4-06 capsule by [facility] of capsule 00:00: mouth in [place] 00 the Medical morning. Branch triamterene Yes [id number] 1{tbl} Take 1 [facility] -hydrochlor 4-06 tablet by [facility] of othiazid 00:00: mouth in [place] 37.5-25 mg 00 the Medical tablet morning. Branch terazosin 5 Yes [id number] 5mg Take 1 [facility] mg capsule 4-06 capsule by [facility] of 00:00: mouth [place] 00 every Medical evening. Branch cloNIDine Yes [id number] .2mg Take 1 [facility] nivers 0.2 mg 4-06 tablet by [facility] of tablet 00:00: mouth 3 [place] 00 (three) Medical times Branch daily as needed (Hypertens ion). Take 1 [facility] TID PRN if BP >150/90 carvediloL Yes [id number] 25mg Take 1 [facility] 25 mg 4-06 tablet by [facility] of tablet 00:00: mouth in [place] 00 the Medical morning Branch and 1 tablet in the evening. Take with meals. TAKE ONE (1) TABLET(S) BY MOUTH TWICE A DAY WITH FOOD. amLODIPine- Yes [id number] 1{capsu Take 1 [facility] benazepriL 4-06 le} capsule by [facility] of 10-40 mg 00:00: mouth in [place] per capsule 00 the Medical morning. Branch tiZANidine Yes [id number] 2mg Take 1 [facility] 2 mg tablet 4-06 tablet by [facility] of 00:00: mouth [place] 00 every 8 Medical (eight) Branch hours as needed (muscle spasms). metFORMIN Yes [id number] TAKE ONE [facility] 1,000 mg 4-06 (1) [facility] of tablet 00:00: TABLET(S) [place] 00 BY MOUTH Medical EVERY Branch TWELVE HOURS WITH MORNING AND EVENING MEALS. atorvastati Yes [id number] 40mg Take 1 [facility] n 40 mg 4-06 tablet by [facility] of tablet 00:00: mouth at [place] 00 bedtime. Medical Branch traZODone 0 Yes [id number] 50mg Take 1 [facility] vers 50 mg 4-06 tablet by [facility] of tablet 00:00: mouth at [place] 00 bedtime. Medical Branch FLUoxetine Yes [id number] 20mg Take 1 [facility] nivers 20 mg 4-06 capsule by [facility] of capsule 00:00: mouth in [place] 00 the Medical morning. Branch triamterene Yes [id number] 1{tbl} Take 1 [facility] -hydrochlor 4-06 tablet by [facility] of othiazid 00:00: mouth in [place] 37.5-25 mg 00 the Medical tablet morning. Branch terazosin 5 0 Yes [id number] 5mg Take 1 [facility] mg capsule 4-06 capsule by [facility] of 00:00: mouth [place] 00 every Medical evening. Branch cloNIDine 0 Yes [id number] .2mg Take 1 [facility] nivers 0.2 mg 4-06 tablet by [facility] of tablet 00:00: mouth 3 [place] 00 (three) Medical times Branch daily as needed (Hypertens ion). Take 1 [facility] TID PRN if BP >150/90 carvediloL 0 Yes [id number] 25mg Take 1 [facility] 25 mg 4-06 tablet by [facility] of tablet 00:00: mouth in [place] 00 the Medical morning Branch and 1 tablet in the evening. Take with meals. TAKE ONE (1) TABLET(S) BY MOUTH TWICE A DAY WITH FOOD. amLODIPine- Yes [id number] 1{capsu Take 1 [facility] benazepriL 4-06 le} capsule by [facility] of 10-40 mg 00:00: mouth in [place] per capsule 00 the Medical morning. Branch tiZANidine Yes [id number] 2mg Take 1 [facility] 2 mg tablet 4-06 tablet by [facility] of 00:00: mouth [place] 00 every 8 Medical (eight) Branch hours as needed (muscle spasms). metFORMIN Yes [id number] TAKE ONE [facility] 1,000 mg 4-06 (1) [facility] of tablet 00:00: TABLET(S) [place] 00 BY MOUTH Medical EVERY Branch TWELVE HOURS WITH MORNING AND EVENING MEALS. atorvastati Yes [id number] 40mg Take 1 [facility] n 40 mg 4-06 tablet by [facility] of tablet 00:00: mouth at [place] 00 bedtime. Medical Branch traZODone Yes [id number] 50mg Take 1 [facility] vers 50 mg 4-06 tablet by [facility] of tablet 00:00: mouth at [place] 00 bedtime. Medical Branch FLUoxetine Yes [id number] 20mg Take 1 [facility] nivers 20 mg 4-06 capsule by [facility] of capsule 00:00: mouth in [place] 00 the Medical morning. Branch triamterene Yes [id number] 1{tbl} Take 1 [facility] -hydrochlor 4-06 tablet by [facility] of othiazid 00:00: mouth in [place] 37.5-25 mg 00 the Medical tablet morning. Branch terazosin 5 Yes [id number] 5mg Take 1 [facility] mg capsule 4-06 capsule by [facility] of 00:00: mouth [place] 00 every Medical evening. Branch cloNIDine 0 Yes [id number] .2mg Take 1 [facility] nivers 0.2 mg 4-06 tablet by [facility] of tablet 00:00: mouth 3 [place] 00 (three) Medical times Branch daily as needed (Hypertens ion). Take 1 [facility] TID PRN if BP >150/90 carvediloL Yes [id number] 25mg Take 1 [facility] 25 mg 4-06 tablet by [facility] of tablet 00:00: mouth in [place] 00 the Medical morning Branch and 1 tablet in the evening. Take with meals. TAKE ONE (1) TABLET(S) BY MOUTH TWICE A DAY WITH FOOD. amLODIPine- Yes [id number] 1{capsu Take 1 [facility] benazepriL 4-06 le} capsule by [facility] of 10-40 mg 00:00: mouth in [place] per capsule 00 the Medical morning. Branch tiZANidine Yes [id number] 2mg Take 1 [facility] 2 mg tablet 4-06 tablet by [facility] of 00:00: mouth [place] 00 every 8 Medical (eight) Branch hours as needed (muscle spasms). metFORMIN Yes [id number] TAKE ONE [facility] 1,000 mg 4-06 (1) [facility] of tablet 00:00: TABLET(S) [place] 00 BY MOUTH Medical EVERY Branch TWELVE HOURS WITH MORNING AND EVENING MEALS. atorvastati Yes [id number] 40mg Take 1 [facility] n 40 mg 4-06 tablet by [facility] of tablet 00:00: mouth at [place] 00 bedtime. Medical Branch traZODone 0 Yes [id number] 50mg Take 1 [facility] vers 50 mg 4-06 tablet by [facility] of tablet 00:00: mouth at [place] 00 bedtime. Medical Branch FLUoxetine Yes [id number] 20mg Take 1 [facility] nivers 20 mg 4-06 capsule by [facility] of capsule 00:00: mouth in [place] 00 the Medical morning. Branch triamterene Yes [id number] 1{tbl} Take 1 [facility] -hydrochlor 4-06 tablet by [facility] of othiazid 00:00: mouth in [place] 37.5-25 mg 00 the Medical tablet morning. Branch terazosin 5 0 Yes [id number] 5mg Take 1 [facility] mg capsule 4-06 capsule by [facility] of 00:00: mouth [place] 00 every Medical evening. Branch cloNIDine 0 Yes [id number] .2mg Take 1 [facility] nivers 0.2 mg 4-06 tablet by [facility] of tablet 00:00: mouth 3 [place] 00 (three) Medical times Branch daily as needed (Hypertens ion). Take 1 [facility] TID PRN if BP >150/90 carvediloL Yes [id number] 25mg Take 1 [facility] 25 mg 4-06 tablet by [facility] of tablet 00:00: mouth in [place] 00 the Medical morning Branch and 1 tablet in the evening. Take with meals. TAKE ONE (1) TABLET(S) BY MOUTH TWICE A DAY WITH FOOD. amLODIPine- Yes [id number] 1{capsu Take 1 [facility] benazepriL 4-06 le} capsule by [facility] of 10-40 mg 00:00: mouth in [place] per capsule 00 the Medical morning. Branch tiZANidine Yes [id number] 2mg Take 1 [facility] 2 mg tablet 4-06 tablet by [facility] of 00:00: mouth [place] 00 every 8 Medical (eight) Branch hours as needed (muscle spasms). metFORMIN 0 Yes [id number] TAKE ONE [facility] 1,000 mg 4-06 (1) [facility] of tablet 00:00: TABLET(S) [place] 00 BY MOUTH Medical EVERY Branch TWELVE HOURS WITH MORNING AND EVENING MEALS. atorvastati Yes [id number] 40mg Take 1 [facility] n 40 mg 4-06 tablet by [facility] of tablet 00:00: mouth at [place] 00 bedtime. Medical Branch traZODone 0 Yes [id number] 50mg Take 1 [facility] vers 50 mg 4-06 tablet by [facility] of tablet 00:00: mouth at [place] 00 bedtime. Medical Branch FLUoxetine Yes [id number] 20mg Take 1 [facility] nivers 20 mg 4-06 capsule by [facility] of capsule 00:00: mouth in [place] 00 the Medical morning. Branch triamterene Yes [id number] 1{tbl} Take 1 [facility] -hydrochlor 4-06 tablet by [facility] of othiazid 00:00: mouth in [place] 37.5-25 mg 00 the Medical tablet morning. Branch terazosin 5 0 Yes [id number] 5mg Take 1 [facility] mg capsule 4-06 capsule by [facility] of 00:00: mouth [place] [address] every Medical evening. Branch cloNIDine 0 Yes [id number] .2mg Take 1 [facility] nivers 0.2 mg 4-06 tablet by [facility] of tablet 00:00: mouth 3 [place] 00 (three) Medical times Branch daily as needed (Hypertens ion). Take 1 [facility] TID PRN if BP >150/90 carvediloL 0 Yes [id number] 25mg Take 1 [facility] 25 mg 4-06 tablet by [facility] of tablet 00:00: mouth in [place] 00 the Medical morning Branch and 1 tablet in the evening. Take with meals. TAKE ONE (1) TABLET(S) BY MOUTH TWICE A DAY WITH FOOD. amLODIPine- Yes [id number] 1{capsu Take 1 [facility] benazepriL 4-06 le} capsule by [facility] of 10-40 mg 00:00: mouth in [place] per capsule 00 the Medical morning. Branch tiZANidine Yes [id number] 2mg Take 1 [facility] 2 mg tablet 4-06 tablet by [facility] of 00:00: mouth [place] 00 every 8 Medical (eight) Branch hours as needed (muscle spasms). metFORMIN Yes [id number] TAKE ONE [facility] 1,000 mg 4-06 (1) [facility] of tablet 00:00: TABLET(S) [place] 00 BY MOUTH Medical EVERY Branch TWELVE HOURS WITH MORNING AND EVENING MEALS. atorvastati Yes [id number] 40mg Take 1 [facility] n 40 mg 4-06 tablet by [facility] of tablet 00:00: mouth at [place] 00 bedtime. Medical Branch traZODone 0 Yes [id number] 50mg Take 1 [facility] vers 50 mg 4-06 tablet by [facility] of tablet 00:00: mouth at [place] 00 bedtime. Medical Branch FLUoxetine Yes [id number] 20mg Take 1 [facility] nivers 20 mg 4-06 capsule by [facility] of capsule 00:00: mouth in [place] 00 the Medical morning. Branch triamterene Yes [id number] 1{tbl} Take 1 [facility] -hydrochlor 4-06 tablet by [facility] of othiazid 00:00: mouth in [place] 37.5-25 mg 00 the Medical tablet morning. Branch terazosin 5 0 Yes [id number] 5mg Take 1 [facility] mg capsule 4-06 capsule by [facility] of 00:00: mouth [place] 00 every Medical evening. Branch cloNIDine 0 Yes [id number] .2mg Take 1 [facility] nivers 0.2 mg 4-06 tablet by [facility] of tablet 00:00: mouth 3 [place] 00 (three) Medical times Branch daily as needed (Hypertens ion). Take 1 [facility] TID PRN if BP >150/90 carvediloL 0 Yes [id number] 25mg Take 1 [facility] 25 mg 4-06 tablet by [facility] of tablet 00:00: mouth in [place] 00 the Medical morning Branch and 1 tablet in the evening. Take with meals. TAKE ONE (1) TABLET(S) BY MOUTH TWICE A DAY WITH FOOD. amLODIPine- Yes [id number] 1{capsu Take 1 [facility] benazepriL 4-06 le} capsule by [facility] of 10-40 mg 00:00: mouth in [place] per capsule 00 the Medical morning. Branch tiZANidine Yes [id number] 2mg Take 1 [facility] 2 mg tablet 4-06 tablet by [facility] of 00:00: mouth [place] 00 every 8 Medical (eight) Branch hours as needed (muscle spasms). metFORMIN Yes [id number] TAKE ONE [facility] 1,000 mg 4-06 (1) [facility] of tablet 00:00: TABLET(S) [place] 00 BY MOUTH Medical EVERY Branch TWELVE HOURS WITH MORNING AND EVENING MEALS. atorvastati Yes [id number] 40mg Take 1 [facility] n 40 mg 4-06 tablet by [facility] of tablet 00:00: mouth at [place] 00 bedtime. Medical Branch traZODone Yes [id number] 50mg Take 1 [facility] vers 50 mg 4-06 tablet by [facility] of tablet 00:00: mouth at [place] 00 bedtime. Medical Branch FLUoxetine Yes [id number] 20mg Take 1 [facility] nivers 20 mg 4-06 capsule by [facility] of capsule 00:00: mouth in [place] 00 the Medical morning. Branch triamterene Yes [id number] 1{tbl} Take 1 [facility] -hydrochlor 4-06 tablet by [facility] of othiazid 00:00: mouth in [place] 37.5-25 mg 00 the Medical tablet morning. Branch terazosin 5 0 Yes [id number] 5mg Take 1 [facility] mg capsule 4-06 capsule by [facility] of 00:00: mouth [place] 00 every Medical evening. Branch cloNIDine Yes [id number] .2mg Take 1 [facility] nivers 0.2 mg 4-06 tablet by [facility] of tablet 00:00: mouth 3 [place] 00 (three) Medical times Branch daily as needed (Hypertens ion). Take 1 [facility] TID PRN if BP >150/90 carvediloL 2023-0 Yes [id number] 25mg Take 1 [facility] 25 mg 4-06 tablet by [facility] of tablet 00:00: mouth in [place] 00 the Medical morning Branch and 1 tablet in the evening. Take with meals. TAKE ONE (1) TABLET(S) BY MOUTH TWICE A DAY WITH FOOD. amLODIPine- Yes [id number] 1{capsu Take 1 [facility] benazepriL 4-06 le} capsule by [facility] of 10-40 mg 00:00: mouth in [place] per capsule 00 the Medical morning. Branch tiZANidine Yes [id number] 2mg Take 1 [facility] 2 mg tablet 4-06 tablet by [facility] of 00:00: mouth [place] 00 every 8 Medical (eight) Branch hours as needed (muscle spasms). metFORMIN Yes [id number] TAKE ONE [facility] 1,000 mg 4-06 (1) [facility] of tablet 00:00: TABLET(S) [place] 00 BY MOUTH Medical EVERY Branch TWELVE HOURS WITH MORNING AND EVENING MEALS. atorvastati Yes [id number] 40mg Take 1 [facility] n 40 mg 4-06 tablet by [facility] of tablet 00:00: mouth at [place] 00 bedtime. Medical Branch traZODone Yes [id number] 50mg Take 1 [facility] vers 50 mg 4-06 tablet by [facility] of tablet 00:00: mouth at [place] 00 bedtime. Medical Branch FLUoxetine Yes [id number] 20mg Take 1 [facility] nivers 20 mg 4-06 capsule by [facility] of capsule 00:00: mouth in [place] 00 the Medical morning. Branch triamterene Yes [id number] 1{tbl} Take 1 [facility] -hydrochlor 4-06 tablet by [facility] of othiazid 00:00: mouth in [place] 37.5-25 mg 00 the Medical tablet morning. Branch terazosin 5 0 Yes [id number] 5mg Take 1 [facility] mg capsule 4-06 capsule by [facility]y of 00:00: mouth [place] 00 every Medical evening. Branch cloNIDine Yes [id number] .2mg Take 1 [facility] nivers 0.2 mg 4-06 tablet by [facility] of tablet 00:00: mouth 3 [place] 00 (three) Medical times Branch daily as needed (Hypertens ion). Take 1 [facility] TID PRN if BP >150/90 carvediloL Yes [id number] 25mg Take 1 [facility] 25 mg 4-06 tablet by [facility] of tablet 00:00: mouth in [place] 00 the Medical morning Branch and 1 tablet in the evening. Take with meals. TAKE ONE (1) TABLET(S) BY MOUTH TWICE A DAY WITH FOOD. amLODIPine- Yes [id number] 1{capsu Take 1 [facility] benazepriL 4-06 le} capsule by [facility] of 10-40 mg 00:00: mouth in [place] per capsule 00 the Medical morning. Branch tiZANidine Yes [id number] 2mg Take 1 [facility] 2 mg tablet 4-06 tablet by [facility] of 00:00: mouth [place] 00 every 8 Medical (eight) Branch hours as needed (muscle spasms). metFORMIN Yes [id number] TAKE ONE [facility] 1,000 mg 4-06 (1) [facility] of tablet 00:00: TABLET(S) [place] 00 BY MOUTH Medical EVERY Branch TWELVE HOURS WITH MORNING AND EVENING MEALS. atorvastati Yes [id number] 40mg Take 1 [facility] n 40 mg 4-06 tablet by [facility] of tablet 00:00: mouth at [place] 00 bedtime. Medical Branch traZODone Yes [id number] 50mg Take 1 [facility] vers 50 mg 4-06 tablet by [facility] of tablet 00:00: mouth at [place] 00 bedtime. Medical Branch FLUoxetine Yes [id number] 20mg Take 1 [facility] 20 mg 4-06 capsule by [facility] of capsule 00:00: mouth in [place] 00 the Medical morning. Branch triamterene Yes [id number] 1{tbl} Take 1 [facility] -hydrochlor 4-06 tablet by it[facility] of othiazid 00:00: mouth in [place] 37.5-25 mg 00 the Medical tablet morning. Branch terazosin 5 Yes [id number] 5mg Take 1 [facility] mg capsule 4-06 capsule by [facility] of 00:00: mouth [place] 00 every Medical evening. Branch cloNIDine Yes [id number] .2mg Take 1 [facility] nivers 0.2 mg 4-06 tablet by [facility] of tablet 00:00: mouth 3 [place] 00 (three) Medical times Branch daily as needed (Hypertens ion). Take 1 [facility] TID PRN if BP >150/90 carvediloL Yes [id number] 25mg Take 1 [facility] 25 mg 4-06 tablet by [facility] of tablet 00:00: mouth in [place] 00 the Medical morning Branch and 1 tablet in the evening. Take with meals. TAKE ONE (1) TABLET(S) BY MOUTH TWICE A DAY WITH FOOD. amLODIPine- Yes [id number] 1{capsu Take 1 [facility] benazepriL 4-06 le} capsule by [facility] of 10-40 mg 00:00: mouth in [place] per capsule 00 the Medical morning. Branch tiZANidine Yes [id number] 2mg Take 1 [facility] 2 mg tablet 4-06 tablet by [facility] of 00:00: mouth [place] 00 every 8 Medical (eight) Branch hours as needed (muscle spasms). metFORMIN Yes [id number] TAKE ONE [facility] 1,000 mg 4-06 (1) [facility] of tablet 00:00: TABLET(S) [place] 00 BY MOUTH Medical EVERY Branch TWELVE HOURS WITH MORNING AND EVENING MEALS. atorvastati Yes [id number] 40mg Take 1 [facility] n 40 mg 4-06 tablet by [facility] of tablet 00:00: mouth at [place] 00 bedtime. Medical Branch traZODone Yes [id number] 50mg Take 1 [facility] vers 50 mg 4-06 tablet by [facility] of tablet 00:00: mouth at [place] 00 bedtime. Medical Branch FLUoxetine Yes [id number] 20mg Take 1 [facility] 20 mg 4-06 capsule by [facility] of capsule 00:00: mouth in [place] 00 the Medical morning. Branch triamterene Yes [id number] 1{tbl} Take 1 [facility] -hydrochlor 4-06 tablet by [facility] of othiazid 00:00: mouth in [place] 37.5-25 mg 00 the Medical tablet morning. Branch terazosin 5 Yes [id number] 5mg Take 1 [facility] mg capsule 4-06 capsule by [facility] of 00:00: mouth [place] 00 every Medical evening. Branch cloNIDine Yes [id number] .2mg Take 1 [facility] 0.2 mg 4-06 tablet by [facility] of tablet 00:00: mouth 3 [place] 00 (three) Medical times Branch daily as needed (Hypertens ion). Take 1 [facility] TID PRN if BP >150/90 carvediloL Yes [id number] 25mg Take 1 [facility] 25 mg 4-06 tablet by [facility] of tablet 00:00: mouth in [place] 00 the Medical morning Branch and 1 tablet in the evening. Take with meals. TAKE ONE (1) TABLET(S) BY MOUTH TWICE A DAY WITH FOOD. amLODIPine- Yes [id number] 1{capsu Take 1 [facility] benazepriL 4-06 le} capsule by [facility] of 10-40 mg 00:00: mouth in [place] per capsule 00 the Medical morning. Branch tiZANidine Yes [id number] 2mg Take 1 [facility] 2 mg tablet 4-06 tablet by [facility] of 00:00: mouth [place] 00 every 8 Medical (eight) Branch hours as needed (muscle spasms). metFORMIN Yes [id number] TAKE ONE [facility] 1,000 mg 4-06 (1) [facility] of tablet 00:00: TABLET(S) [place] 00 BY MOUTH Medical EVERY Branch TWELVE HOURS WITH MORNING AND EVENING MEALS. atorvastati Yes [id number] 40mg Take 1 [facility] n 40 mg 4-06 tablet by [facility] of tablet 00:00: mouth at [place] 00 bedtime. Medical Branch traZODone Yes [id number] 50mg Take 1 [facility] vers 50 mg 4-06 tablet by [facility] of tablet 00:00: mouth at [place] 00 bedtime. Medical Branch FLUoxetine Yes [id number] 20mg Take 1 [facility] 20 mg 4-06 capsule by [facility] of capsule 00:00: mouth in [place] 00 the Medical morning. Branch triamterene Yes [id number] 1{tbl} Take 1 [facility] -hydrochlor 4-06 tablet by [facility] of othiazid 00:00: mouth in [place] 37.5-25 mg 00 the Medical tablet morning. Branch terazosin 5 Yes [id number] 5mg Take 1 [facility] mg capsule 4-06 capsule by [facility] of 00:00: mouth [place] 00 every Medical evening. Branch cloNIDine Yes [id number] .2mg Take 1 [facility] nivers 0.2 mg 4-06 tablet by [facility] of tablet 00:00: mouth 3 [place] 00 (three) Medical times Branch daily as needed (Hypertens ion). Take 1 [facility] TID PRN if BP >150/90 carvediloL Yes [id number] 25mg Take 1 [facility] 25 mg 4-06 tablet by [facility] of tablet 00:00: mouth in [place] 00 the Medical morning Branch and 1 tablet in the evening. Take with meals. TAKE ONE (1) TABLET(S) BY MOUTH TWICE A DAY WITH FOOD. amLODIPine- Yes [id number] 1{capsu Take 1 [facility] benazepriL 4-06 le} capsule by [facility] of 10-40 mg 00:00: mouth in [place] per capsule 00 the Medical morning. Branch tiZANidine Yes [id number] 2mg Take 1 [facility] 2 mg tablet 4-06 tablet by [facility] of 00:00: mouth [place] 00 every 8 Medical (eight) Branch hours as needed (muscle spasms). metFORMIN Yes [id number] TAKE ONE [facility] 1,000 mg 4-06 (1) [facility] of tablet 00:00: TABLET(S) [place] 00 BY MOUTH Medical EVERY Branch TWELVE HOURS WITH MORNING AND EVENING MEALS. atorvastati Yes [id number] 40mg Take 1 [facility] n 40 mg 4-06 tablet by [facility] of tablet 00:00: mouth at [place] 00 bedtime. Medical Branch traZODone Yes [id number] 50mg Take 1 [facility] vers 50 mg 4-06 tablet by [facility] of tablet 00:00: mouth at [place] 00 bedtime. Medical Branch FLUoxetine Yes [id number] 20mg Take 1 [facility] 20 mg 4-06 capsule by [facility] of capsule 00:00: mouth in [place] 00 the Medical morning. Branch triamterene Yes [id number] 1{tbl} Take 1 [facility] -hydrochlor 4-06 tablet by [facility] of othiazid 00:00: mouth in [place] 37.5-25 mg 00 the Medical tablet morning. Branch terazosin 5 0 Yes [id number] 5mg Take 1 [facility] mg capsule 4-06 capsule by [facility] of 00:00: mouth [place] 00 every Medical evening. Branch cloNIDine 0 Yes [id number] .2mg Take 1 [facility] nivers 0.2 mg 4-06 tablet by [facility] of tablet 00:00: mouth 3 [place] 00 (three) Medical times Branch daily as needed (Hypertens ion). Take 1 [facility] TID PRN if BP >150/90 carvediloL Yes [id number] 25mg Take 1 [facility] 25 mg 4-06 tablet by [facility] of tablet 00:00: mouth in [place] 00 the Medical morning Branch and 1 tablet in the evening. Take with meals. TAKE ONE (1) TABLET(S) BY MOUTH TWICE A DAY WITH FOOD. amLODIPine- Yes [id number] 1{capsu Take 1 [facility] benazepriL 4-06 le} capsule by it[facility] of 10-40 mg 00:00: mouth in [place] per capsule 00 the Medical morning. Branch tiZANidine Yes [id number] 2mg Take 1 [facility] 2 mg tablet 4-06 tablet by ity of 00:00: mouth [place] 00 every 8 Medical (eight) Branch hours as needed (muscle spasms). metFORMIN Yes [id number] TAKE ONE [facility] 1,000 mg 4-06 (1) [facility] of tablet 00:00: TABLET(S) [place] 00 BY MOUTH Medical EVERY Branch TWELVE HOURS WITH MORNING AND EVENING MEALS. atorvastati Yes [id number] 40mg Take 1 [facility] n 40 mg 4-06 tablet by [facility] of tablet 00:00: mouth at [place] 00 bedtime. Medical Branch traZODone 0 Yes [id number] 50mg Take 1 [facility] vers 50 mg 4-06 tablet by [facility] of tablet 00:00: mouth at [place] 00 bedtime. Medical Branch FLUoxetine 0 Yes [id number] 20mg Take 1 [facility] n[facility] 20 mg 4-06 capsule by [facility] of capsule 00:00: mouth in [place] 00 the Medical morning. Branch triamterene Yes [id number] 1{tbl} Take 1 [facility] -hydrochlor 4-06 tablet by ity of othiazid 00:00: mouth in [place] 37.5-25 mg 00 the Medical tablet morning. Branch cloNIDine Yes [id number] .2mg Take 1 [facility] nivers 0.2 mg 4-06 tablet by [facility] of tablet 00:00: mouth 3 [place] 00 (three) Medical times Branch daily as needed (Hypertens ion). Take 1 [facility] TID PRN if BP >150/90 carvediloL Yes [id number] 25mg Take 1 [facility] 25 mg 4-06 tablet by [facility] of tablet 00:00: mouth in [place] 00 the Medical morning Branch and 1 tablet in the evening. Take with meals. TAKE ONE (1) TABLET(S) BY MOUTH TWICE A DAY WITH FOOD. amLODIPine- Yes [id number] 1{capsu Take 1 [facility] benazepriL 4-06 le} capsule by [facility] of 10-40 mg 00:00: mouth in [place] per capsule 00 the Medical morning. Branch tiZANidine Yes [id number] 2mg Take 1 [facility] 2 mg tablet 4-06 tablet by ity of 00:00: mouth [place] 00 every 8 Medical (eight) Branch hours as needed (muscle spasms). metFORMIN Yes [id number] TAKE ONE [facility] 1,000 mg 4-06 (1) ity of tablet 00:00: TABLET(S) [place] 00 BY MOUTH Medical EVERY Branch TWELVE HOURS WITH MORNING AND EVENING MEALS. atorvastati Yes [id number] 40mg Take 1 [facility] n 40 mg 4-06 tablet by ity of tablet 00:00: mouth at [place] 00 bedtime. Medical Branch traZODone Yes [id number] 50mg Take 1 [facility] vers 50 mg 4-06 tablet by [facility] of tablet 00:00: mouth at [place] 00 bedtime. Medical Branch FLUoxetine Yes [id number] 20mg Take 1 [facility] nivers 20 mg 4-06 capsule by ity of capsule 00:00: mouth in [place] 00 the Medical morning. Branch triamterene Yes [id number] 1{tbl} Take 1 [facility] -hydrochlor 4-06 tablet by ity of othiazid 00:00: mouth in [place] 37.5-25 mg 00 the Medical tablet morning. Branch cloNIDine Yes [id number] .2mg Take 1 [facility] nivers 0.2 mg 4-06 tablet by it[facility] of tablet 00:00: mouth 3 [place] 00 (three) Medical times Branch daily as needed (Hypertens ion). Take 1 [facility] TID PRN if BP >150/90 carvediloL Yes [id number] 25mg Take 1 [facility] 25 mg 4-06 tablet by [facility] of tablet 00:00: mouth in [place] 00 the Medical morning Branch and 1 tablet in the evening. Take with meals. TAKE ONE (1) TABLET(S) BY MOUTH TWICE A DAY WITH FOOD. amLODIPine- Yes [id number] 1{capsu Take 1 [facility] benazepriL 4-06 le} capsule by it[facility] of 10-40 mg 00:00: mouth in [place] per capsule 00 the Medical morning. Branch tiZANidine Yes [id number] 2mg Take 1 [facility] 2 mg tablet 4-06 tablet by ity of 00:00: mouth [place] 00 every 8 Medical (eight) Branch hours as needed (muscle spasms). metFORMIN Yes [id number] TAKE ONE [facility] 1,000 mg 4-06 (1) it[facility] of tablet 00:00: TABLET(S) [place] 00 BY MOUTH Medical EVERY Branch TWELVE HOURS WITH MORNING AND EVENING MEALS. atorvastati Yes [id number] 40mg Take 1 [facility] n 40 mg 4-06 tablet by ity of tablet 00:00: mouth at [place] 00 bedtime. Medical Branch traZODone 0 Yes [id number] 50mg Take 1 [facility] vers 50 mg 4-06 tablet by it[facility] of tablet 00:00: mouth at [place] 00 bedtime. Medical Branch FLUoxetine Yes [id number] 20mg Take 1 [facility] nivers 20 mg 4-06 capsule by it[facility] of capsule 00:00: mouth in [place] 00 the Medical morning. Branch triamterene Yes [id number] 1{tbl} Take 1 [facility] -hydrochlor 4-06 tablet by ity of othiazid 00:00: mouth in [place] 37.5-25 mg 00 the Medical tablet morning. Branch cloNIDine Yes [id number] .2mg Take 1 [facility] nivers 0.2 mg 4-06 tablet by it[facility] of tablet 00:00: mouth 3 [place] 00 (three) Medical times Branch daily as needed (Hypertens ion). Take 1 [facility] TID PRN if BP >150/90 carvediloL 0 Yes [id number] 25mg Take 1 [facility] 25 mg 4-06 tablet by it[facility] of tablet 00:00: mouth in [place] 00 the Medical morning Branch and 1 tablet in the evening. Take with meals. TAKE ONE (1) TABLET(S) BY MOUTH TWICE A DAY WITH FOOD. amLODIPine- Yes [id number] 1{capsu Take 1 [facility] benazepriL 4-06 le} capsule by it[facility] of 10-40 mg 00:00: mouth in [place] per capsule 00 the Medical morning. Branch tiZANidine Yes [id number] 2mg Take 1 [facility] 2 mg tablet 4-06 tablet by ity of 00:00: mouth [place] 00 every 8 Medical (eight) Branch hours as needed (muscle spasms). metFORMIN Yes [id number] TAKE ONE [facility] 1,000 mg 4-06 (1) ity of tablet 00:00: TABLET(S) [place] 00 BY MOUTH Medical EVERY Branch TWELVE HOURS WITH MORNING AND EVENING MEALS. atorvastati Yes [id number] 40mg Take 1 [facility] n 40 mg 4-06 tablet by ity of tablet 00:00: mouth at [place] [address] bedtime. Medical Branch traZODone Yes [id number] 50mg Take 1 [facility] vers 50 mg 4-06 tablet by ity of tablet 00:00: mouth at [place] 00 bedtime. Medical Branch FLUoxetine Yes [id number] 20mg Take 1 [facility] nivers 20 mg 4-06 capsule by ity of capsule 00:00: mouth in [place] 00 the Medical morning. Branch triamterene Yes [id number] 1{tbl} Take 1 [facility] -hydrochlor 4-06 tablet by ity of othiazid 00:00: mouth in [place] 37.5-25 mg 00 the Medical tablet morning. Branch cloNIDine Yes [id number] .2mg Take 1 [facility] nivers 0.2 mg 4-06 tablet by ity of tablet 00:00: mouth 3 [place] 00 (three) Medical times Branch daily as needed (Hypertens ion). Take 1 [facility] TID PRN if BP >150/90 carvediloL Yes [id number] 25mg Take 1 [facility] 25 mg 4-06 tablet by it[facility] of tablet 00:00: mouth in [place] 00 the Medical morning Branch and 1 tablet in the evening. Take with meals. TAKE ONE (1) TABLET(S) BY MOUTH TWICE A DAY WITH FOOD. amLODIPine- Yes [id number] 1{capsu Take 1 [facility] benazepriL 4-06 le} capsule by it[facility] of 10-40 mg 00:00: mouth in [place] per capsule 00 the Medical morning. Branch tiZANidine Yes [id number] 2mg Take 1 [facility] 2 mg tablet 4-06 tablet by ity of 00:00: mouth [place] 00 every 8 Medical (eight) Branch hours as needed (muscle spasms). metFORMIN 0 Yes [id number] TAKE ONE [facility] 1,000 mg 4-06 (1) ity of tablet 00:00: TABLET(S) [place] 00 BY MOUTH Medical EVERY Branch TWELVE HOURS WITH MORNING AND EVENING MEALS. atorvastati Yes [id number] 40mg Take 1 [facility] n 40 mg 4-06 tablet by ity of tablet 00:00: mouth at [place] 00 bedtime. Medical Branch traZODone 0 Yes [id number] 50mg Take 1 [facility] vers 50 mg 4-06 tablet by it[facility] of tablet 00:00: mouth at [place] 00 bedtime. Medical Branch FLUoxetine Yes [id number] 20mg Take 1 [facility] nivers 20 mg 4-06 capsule by ity of capsule 00:00: mouth in [place] 00 the Medical morning. Branch triamterene Yes [id number] 1{tbl} Take 1 [facility] -hydrochlor 4-06 tablet by ity of othiazid 00:00: mouth in [place] 37.5-25 mg 00 the Medical tablet morning. Branch cloNIDine Yes [id number] .2mg Take 1 [facility] nivers 0.2 mg 4-06 tablet by ity of tablet 00:00: mouth 3 [place] 00 (three) Medical times Branch daily as needed (Hypertens ion). Take 1 [facility] TID PRN if BP >150/90 carvediloL Yes [id number] 25mg Take 1 [facility] 25 mg 4-06 tablet by it[facility] of tablet 00:00: mouth in [place] 00 the Medical morning Branch and 1 tablet in the evening. Take with meals. TAKE ONE (1) TABLET(S) BY MOUTH TWICE A DAY WITH FOOD. amLODIPine- Yes [id number] 1{capsu Take 1 [facility] benazepriL 4-06 le} capsule by ity of 10-40 mg 00:00: mouth in [place] per capsule 00 the Medical morning. Branch tiZANidine Yes [id number] 2mg Take 1 [facility] 2 mg tablet 4-06 tablet by ity of 00:00: mouth [place] 00 every 8 Medical (eight) Branch hours as needed (muscle spasms). metFORMIN Yes [id number] TAKE ONE [facility] 1,000 mg 4-06 (1) ity of tablet 00:00: TABLET(S) [place] 00 BY MOUTH Medical EVERY Branch TWELVE HOURS WITH MORNING AND EVENING MEALS. atorvastati Yes [id number] 40mg Take 1 [facility] n 40 mg 4-06 tablet by ity of tablet 00:00: mouth at [place] 00 bedtime. Medical Branch traZODone Yes [id number] 50mg Take 1 [facility] vers 50 mg 4-06 tablet by ity of tablet 00:00: mouth at [place] [address] bedtime. Medical Branch FLUoxetine Yes [id number] 20mg Take 1 [facility] nivers 20 mg 4-06 capsule by ity of capsule 00:00: mouth in [place] 00 the Medical morning. Branch triamterene Yes [id number] 1{tbl} Take 1 [facility] -hydrochlor 4-06 tablet by ity of othiazid 00:00: mouth in [place] 37.5-25 mg 00 the Medical tablet morning. Branch cloNIDine Yes [id number] .2mg Take 1 [facility] nivers 0.2 mg 4-06 tablet by ity of tablet 00:00: mouth 3 [place] 00 (three) Medical times Branch daily as needed (Hypertens ion). Take 1 [facility] TID PRN if BP >150/90 carvediloL Yes [id number] 25mg Take 1 [facility] 25 mg 4-06 tablet by ity of tablet 00:00: mouth in [place] 00 the Medical morning Branch and 1 tablet in the evening. Take with meals. TAKE ONE (1) TABLET(S) BY MOUTH TWICE A DAY WITH FOOD. amLODIPine- Yes [id number] 1{capsu Take 1 [facility] benazepriL 4-06 le} capsule by ity of 10-40 mg 00:00: mouth in [place] per capsule 00 the Medical morning. Branch tiZANidine Yes [id number] 2mg Take 1 [facility] 2 mg tablet 4-06 tablet by ity of 00:00: mouth [place] 00 every 8 Medical (eight) Branch hours as needed (muscle spasms). atorvastati Yes [id number] 40mg Take 1 [facility] n 40 mg 4-06 tablet by ity of tablet 00:00: mouth at [place] 00 bedtime. Medical Branch traZODone Yes [id number] 50mg Take 1 [facility] vers 50 mg 4-06 tablet by ity of tablet 00:00: mouth at [place] 00 bedtime. Medical Branch FLUoxetine Yes [id number] 20mg Take 1 [facility] nivers 20 mg 4-06 capsule by ity of capsule 00:00: mouth in [place] 00 the Medical morning. Branch triamterene Yes [id number] 1{tbl} Take 1 [facility] -hydrochlor 4-06 tablet by ity of othiazid 00:00: mouth in [place] 37.5-25 mg 00 the Medical tablet morning. Branch cloNIDine Yes [id number] .2mg Take 1 [facility] nivers 0.2 mg 4-06 tablet by ity of tablet 00:00: mouth 3 [place] 00 (three) Medical times Branch daily as needed (Hypertens ion). Take 1 [facility] TID PRN if BP >150/90 carvediloL Yes [id number] 25mg Take 1 [facility] 25 mg 4-06 tablet by ity of tablet 00:00: mouth in [place] 00 the Medical morning Branch and 1 tablet in the evening. Take with meals. TAKE ONE (1) TABLET(S) BY MOUTH TWICE A DAY WITH FOOD. amLODIPine- Yes [id number] 1{capsu Take 1 [facility] benazepriL 4-06 le} capsule by ity of 10-40 mg 00:00: mouth in [place] per capsule 00 the Medical morning. Branch tiZANidine Yes [id number] 2mg Take 1 [facility] 2 mg tablet 4-06 tablet by ity of 00:00: mouth [place] 00 every 8 Medical (eight) Branch hours as needed (muscle spasms). atorvastati Yes [id number] 40mg Take 1 [facility] n 40 mg 4-06 tablet by ity of tablet 00:00: mouth at [place] 00 bedtime. Medical Branch traZODone Yes [id number] 50mg Take 1 [facility] vers 50 mg 4-06 tablet by ity of tablet 00:00: mouth at [place] 00 bedtime. Medical Branch FLUoxetine Yes [id number] 20mg Take 1 [facility] nivers 20 mg 4- capsule by ity of capsule 00:00: mouth in [place] 00 the Medical morning. Branch metFORMIN 3- No [id number] TAKE ONE [facility] 1,000 mg -01 22-06 (1) ity of tablet 00:00: 00:00 TABLET(S) [place] 00 :00 BY [facility] EVERY [place] TWELVE HOURS WITH MORNING AND EVENING MEALS. terazosin 5 2022- No [id number] 5mg Take 1 [facility] mg capsule 11-18 capsule by it y of 00:00: 00:00 mouth [place] 00 :00 every Medical evening. Branch terazosin 5 2022- No [id number] 5mg Take 1 [facility] mg capsule 11-18 capsule by it y of 00:00: 00:00 mouth [place] 00 :00 every Medical evening. Branch terazosin 5 2022- No [id number] 5mg Take 1 [facility] mg capsule 11-18 capsule by it y of 00:00: 00:00 mouth [place] 00 :00 every Medical evening. Branch terazosin 5 2022- No [id number] 5mg Take 1 [facility] mg capsule 11-18 capsule by it y of 00:00: 00:00 mouth [place] 00 :00 every Medical evening. Branch HYDRALAZINE Yes TAKE ONE Un luis f 50 mg 3-13 (1) TABLET ity of tablet 00:00: BY MOUTH [place] 00 IN THE Medical MORNING Branch AND 1 TABLET AT NOON AND 1 TABLET IN THE EVENING. HYDRALAZINE Yes TAKE ONE Un luis f 50 mg 3-13 (1) TABLET ity of tablet 00:00: BY MOUTH [place] 00 IN THE Medical MORNING Branch AND 1 TABLET AT NOON AND 1 TABLET IN THE EVENING. HYDRALAZINE Yes TAKE ONE Un luis f 50 mg 3-13 (1) TABLET ity of tablet 00:00: BY MOUTH [place] 00 IN THE Medical MORNING Branch AND [...] 00:00: BY MOUTH [place] 00 IN THE [facility] MORNING Branch AND 1 TABLET [...] 00:00: BY MOUTH [place] 00 IN THE [facility] MORNING Branch AND 1 TABLET AT NOON AND 1 TABLET IN THE EVENING. HYDRALAZINE 3-0 Yes TAKE ONE Un luis f 50 mg 3-13 (1) TABLET ity of tablet 00:00: BY MOUTH [place] 00 IN THE [facility] MORNING Branch AND 1 TABLET AT NOON AND 1 TABLET IN THE EVENING. HYDRALAZINE 3-0 Yes TAKE ONE Un luis f 50 mg 3-13 (1) TABLET ity of tablet 00:00: BY MOUTH [place] 00 IN THE [facility] MORNING Branch AND 1 TABLET AT NOON AND 1 TABLET IN THE EVENING. HYDRALAZINE 3-0 Yes TAKE ONE Un luis f 50 mg 3-13 (1) TABLET ity of tablet 00:00: BY MOUTH [place] 00 IN THE [facility] MORNING Branch AND 1 TABLET AT NOON AND 1 TABLET IN THE EVENING. HYDRALAZINE 3-0 Yes TAKE ONE Un luis f 50 mg 3-13 (1) TABLET ity of tablet 00:00: BY MOUTH [place] 00 IN THE [facility] MORNING Branch AND 1 TABLET AT NOON AND 1 TABLET IN THE EVENING. HYDRALAZINE 3-0 Yes TAKE ONE Un luis f 50 mg 3-13 (1) TABLET ity of tablet 00:00: BY MOUTH [place] 00 IN THE [facility] MORNING Branch AND 1 TABLET [...] BY MOUTH [place] 00 :00 IN THE [facility] MORNING Branch AND 1 TABLET AT NOON AND 1 TABLET IN THE EVENING. HYDRALAZINE 2022- No TAKE ONE U nivers 50 mg 3-13 07-20 (1) TABLET ity of tablet 00:00: 00:00 BY MOUTH [place] 00 :00 IN THE [facility] MORNING Branch AND 1 TABLET AT NOON AND 1 TABLET IN THE EVENING. hydrALAZINE 2021-08 Yes [id number] 100mg Take 1 [facility] 100 mg 2-21 tablet by ity of tablet 00:00: mouth in [place] 00 the [facility] morning Branch and 1 tablet at noon and 1 tablet in the evening. hydrALAZINE 2021-08 Yes [id number] 100mg Take 1 [facility] 100 mg 2-21 tablet by ity of tablet 00:00: mouth in [place] 00 the [facility] morning Branch and 1 tablet at noon and 1 tablet in the evening. hydrALAZINE 2021-08 Yes [id number] 100mg Take 1 [facility] 100 mg 2-21 tablet by ity of tablet 00:00: mouth in [place] [address] the [facility] morning Branch and 1 tablet at noon and 1 tablet in the evening. hydrALAZINE 2021-08 Yes [id number] 100mg Take 1 [facility] 100 mg 2-21 tablet by ity of tablet 00:00: mouth in [address] morning [place] and 1 tablet at noon and 1 tablet in the evening. hydrALAZINE 2021-08 Yes [id number] 100mg Take 1 [facility] 100 mg 2-21 tablet by ity of tablet 00:00: mouth in [address] morning [place] and 1 tablet at noon and 1 tablet in the evening. hydrALAZINE 2021-08 Yes [id number] 100mg Take 1 [facility] 100 mg 2-21 tablet by ity of tablet 00:00: mouth in [address] and 1 tablet at noon and 1 tablet in the evening. hydrALAZINE 2021-08 Yes [id number] 100mg Take 1 [facility] 100 mg 2-21 tablet by ity of tablet 00:00: mouth in [address] and 1 tablet at noon and 1 tablet in the evening. hydrALAZINE 2021-08 Yes [id number] 100mg Take 1 [facility] 100 mg 2-21 tablet by ity of tablet 00:00: mouth in [address] and 1 tablet at noon and 1 tablet in the evening. hydrALAZINE 2021-08 Yes [id number] 100mg Take 1 [facility] 100 mg 2-21 tablet by ity of tablet 00:00: mouth in [address] and 1 tablet at noon and 1 tablet in the evening. hydrALAZINE 2021-08 Yes [id number] 100mg Take 1 [facility] 100 mg 2-21 tablet by ity of tablet 00:00: mouth in [address] and 1 tablet at noon and 1 tablet in the evening. hydrALAZINE 2021-08 Yes [id number] 100mg Take 1 [facility] 100 mg 2-21 tablet by ity of tablet 00:00: mouth in [address] and 1 tablet at noon and 1 tablet in the evening. hydrALAZINE 2021-08 Yes [id number] 100mg Take 1 [facility] 100 mg 2-21 tablet by ity of tablet 00:00: mouth in [address] and 1 tablet at noon and 1 tablet in the evening. hydrALAZINE 2021-08 Yes [id number] 100mg Take 1 [facility] 100 mg 2-21 tablet by ity of tablet 00:00: mouth in [address] and 1 tablet at noon and 1 tablet in the evening. hydrALAZINE 2021-08 Yes [id number] 100mg Take 1 [facility] 100 mg 2-21 tablet by ity of tablet 00:00: mouth in [address] morning [place] and 1 tablet at noon and 1 tablet in the evening. hydrALAZINE 2021-08 Yes [id number] 100mg Take 1 [facility] 100 mg 2-21 tablet by ity of tablet 00:00: mouth in [address] morning [place] and 1 tablet at noon and 1 tablet in the evening. hydrALAZINE 2021-08 Yes [id number] 100mg Take 1 [facility] 100 mg 2-21 tablet by ity of tablet 00:00: mouth in [address] morning [place] and 1 tablet at noon and 1 tablet in the evening. hydrALAZINE 2021-08 Yes [id number] 100mg Take 1 [facility] 100 mg 2-21 tablet by ity of tablet 00:00: mouth in [address] and 1 tablet at noon and 1 tablet in the evening. hydrALAZINE 2021-08 Yes [id number] 100mg Take 1 [facility] 100 mg 2-21 tablet by ity of tablet 00:00: mouth in [address] and 1 tablet at noon and 1 tablet in the evening. hydrALAZINE 2021-08 Yes [id number] 100mg Take 1 [facility] 100 mg 2-21 tablet by ity of tablet 00:00: mouth in [address] and 1 tablet at noon and 1 tablet in the evening. hydrALAZINE 2021-08 Yes [id number] 100mg Take 1 [facility] 100 mg 2-21 tablet by [facility] of tablet 00:00: mouth in [address] and 1 tablet at noon and 1 tablet in the evening. hydrALAZINE 2021-08 Yes [id number] 100mg Take 1 [facility] 100 mg 2-21 tablet by ity of tablet 00:00: mouth in [address] and 1 tablet at noon and 1 tablet in the evening. hydrALAZINE 2021-08 Yes [id number] 100mg Take 1 [facility] 100 mg 2-21 tablet by ity of tablet 00:00: mouth in [address] and 1 tablet at noon and 1 tablet in the evening. hydrALAZINE 2021-08 Yes [id number] 100mg Take 1 [facility] 100 mg 2-21 tablet by ity of tablet 00:00: mouth in [address] morning [place] and 1 tablet at noon and 1 tablet in the evening. hydrALAZINE 2021-08 Yes [id number] 100mg Take 1 [facility] 100 mg 2-21 tablet by ity of tablet 00:00: mouth in [address] morning [place] and 1 tablet at noon and 1 tablet in the evening. hydrALAZINE 2021-08 Yes [id number] 100mg Take 1 [facility] 100 mg 2-21 tablet by ity of tablet 00:00: mouth in [address] morning [place] and 1 tablet at noon and 1 tablet in the evening. hydrALAZINE 2021-08 Yes [id number] 100mg Take 1 [facility] 100 mg 2-21 tablet by ity of tablet 00:00: mouth in [address] and 1 tablet at noon and 1 tablet in the evening. hydrALAZINE 2021-08 Yes [id number] 100mg Take 1 [facility] 100 mg 2-21 tablet by ity of tablet 00:00: mouth in [address] and 1 tablet at noon and 1 tablet in the evening. hydrALAZINE 2021-08 Yes [id number] 100mg Take 1 [facility] 100 mg 2-21 tablet by ity of tablet 00:00: mouth in [address] and 1 tablet at noon and 1 tablet in the evening. hydrALAZINE 2021-08 Yes [id number] 100mg Take 1 [facility] 100 mg 2-21 tablet by ity of tablet 00:00: mouth in [address] morning [place] and 1 tablet at noon and 1 tablet in the evening. hydrALAZINE 2021-08 Yes [id number] 100mg Take 1 [facility] 100 mg 2-21 tablet by ity of tablet 00:00: mouth in [address] and 1 tablet at noon and 1 tablet in the evening. hydrALAZINE 2021-08- No [id number] 100mg Take 1 [facility] 100 mg 2-21 07-20 tablet by ity of tablet 00:00: 00:00 mouth in [place] 00 :00 [facility] and 1 tablet at noon and 1 tablet in the evening. hydrALAZINE 2021-08- No [id number] 100mg Take 1 [facility] 100 mg 2-21 07-20 tablet by ity of tablet 00:00: 00:00 mouth in [place] 00 :00 the Medical morning Branch and 1 tablet at noon and 1 tablet in the evening. hydrALAZINE 2021-08- No [id number] 100mg Take 1 [facility] 100 mg 2-21 -20 tablet by ity of tablet 00:00: 00:00 mouth in [place] 00 :00 the Medical morning Branch and 1 tablet at noon and 1 tablet in the evening. hydrALAZINE 2021-08- No [id number] 100mg Take 1 [facility] 100 mg 2- 07-20 tablet by ity of tablet 00:00: 00:00 mouth in [place] 00 :00 the Medical morning Branch and 1 tablet at noon and 1 tablet in the evening. lidocaine 5 2021-08 Yes [id number] Apply 2g [facility] % ointment 2-12 to ity of 00:00: affected [place] 00 areas BID Medical PRN Branch lidocaine 5 2021-08 Yes [id number] Apply 2g [facility] % ointment 2-12 to ity of 00:00: affected [place] 00 areas BID Medical PRN Branch lidocaine 5 2021-08 Yes [id number] Apply 2g [facility] % ointment 2-12 to ity of 00:00: affected [place] 00 areas BID Medical PRN Branch lidocaine 5 2021-08 Yes [id number] Apply 2g [facility] % ointment 2-12 to ity of 00:00: affected [place] 00 areas BID Medical PRN Branch lidocaine 5 2021-08 Yes [id number] Apply 2g [facility] % ointment 2-12 to ity of 00:00: affected [place] 00 areas BID Medical PRN Branch lidocaine 5 2021-08 Yes [id number] Apply 2g [facility] % ointment 2-12 to ity of 00:00: affected [place] 00 areas BID Medical PRN Branch lidocaine 5 2021-08 Yes [id number] Apply 2g [facility] % ointment 2-12 to ity of 00:00: affected [place] 00 areas BID Medical PRN Branch lidocaine 5 2021-08 Yes [id number] Apply 2g [facility] % ointment 2-12 to ity of 00:00: affected [place] 00 areas BID Medical PRN Branch lidocaine 5 2021-08 Yes [id number] Apply 2g [facility] % ointment 2-12 to ity of 00:00: affected [place] 00 areas BID Medical PRN Branch lidocaine 5 2021-08 Yes [id number] Apply 2g [facility] % ointment 2-12 to ity of 00:00: affected [place] 00 areas BID Medical PRN Branch lidocaine 5 2021- Yes [id number] Apply 2g [facility] % ointment 2-12 to ity of 00:00: affected [place] 00 areas BID Medical PRN Branch lidocaine 5 2021-08 Yes [id number] Apply 2g [facility] % ointment 2-12 to ity of 00:00: affected [place] 00 areas BID Medical PRN Branch lidocaine 5 2021- Yes [id number] Apply 2g [facility] % ointment 2-12 to ity of 00:00: affected [place] 00 areas BID Medical PRN Branch lidocaine 5 2021-08 Yes [id number] Apply 2g [facility] % ointment 2-12 to ity of 00:00: affected [place] 00 areas BID Medical PRN Branch lidocaine 5 2021-08 Yes [id number] Apply 2g [facility] % ointment 2-12 to ity of 00:00: affected [place] 00 areas BID Medical PRN Branch lidocaine 5 2021-08 Yes [id number] Apply 2g [facility] % ointment 2-12 to ity of 00:00: affected [place] 00 areas BID Medical PRN Branch lidocaine 5 2021-08 Yes [id number] Apply 2g [facility] % ointment 2-12 to ity of 00:00: affected [place] 00 areas BID Medical PRN Branch lidocaine 5 2021-08 Yes [id number] Apply 2g [facility] % ointment 2-12 to ity of 00:00: affected [place] 00 areas BID Medical PRN Branch lidocaine 5 2021-08 Yes [id number] Apply 2g [facility] % ointment 2-12 to ity of 00:00: affected [place] 00 areas BID Medical PRN Branch lidocaine 5 2021-08 Yes [id number] Apply 2g [facility] % ointment 2-12 to ity of 00:00: affected [place] 00 areas BID Medical PRN Branch lidocaine 5 2021-08 Yes [id number] Apply 2g [facility] % ointment 2-12 to ity of 00:00: affected [place] 00 areas BID Medical PRN Branch lidocaine 5 2021-08 Yes [id number] Apply 2g [facility] % ointment 2-12 to ity of 00:00: affected [place] 00 areas BID Medical PRN Branch lidocaine 5 2021-08 Yes [id number] Apply 2g [facility] % ointment 2-12 to ity of 00:00: affected [place] 00 areas BID Medical PRN Branch lidocaine 5 2021-08 Yes [id number] Apply 2g [facility] % ointment 2-12 to ity of 00:00: affected [place] 00 areas BID Medical PRN Branch lidocaine 5 2021-08 Yes [id number] Apply 2g [facility] % ointment 2-12 to ity of 00:00: affected [place] 00 areas BID Medical PRN Branch lidocaine 5 2021- Yes [id number] Apply 2g [facility] % ointment 2-12 to ity of 00:00: affected [place] 00 areas BID Medical PRN Branch lidocaine 5 2021-08 Yes [id number] Apply 2g [facility] % ointment 2-12 to ity of 00:00: affected [place] 00 areas BID Medical PRN Branch lidocaine 5 2021-08 Yes [id number] Apply 2g [facility] % ointment 2-12 to ity of 00:00: affected [place] 00 areas BID Medical PRN Branch lidocaine 5 2021-08 Yes [id number] Apply 2g [facility] % ointment 2-12 to ity of 00:00: affected [place] 00 areas BID Medical PRN Branch lidocaine 5 2021-08 Yes [id number] Apply 2g [facility] % ointment 2-12 to ity of 00:00: affected [place] 00 areas BID Medical PRN Branch lidocaine 5 2021-08 Yes [id number] Apply 2g [facility] % ointment 2-12 to ity of 00:00: affected [place] 00 areas BID Medical PRN Branch lidocaine 5 2021-08 Yes [id number] Apply 2g [facility] % ointment 2-12 to ity of 00:00: affected [place] 00 areas BID Medical PRN Branch lidocaine 5 2021-08 Yes [id number] Apply 2g [facility] % ointment 2-12 to ity of 00:00: affected [place] 00 areas BID Medical PRN Branch lidocaine 5 2021- Yes [id number] Apply 2g [facility] % ointment 2-12 to ity of 00:00: affected [place] 00 areas BID Medical PRN Branch lidocaine 5 2021-08 Yes [id number] Apply 2g [facility] % ointment 2-12 to ity of 00:00: affected [place] 00 areas BID Medical PRN Branch lidocaine 5 2021-08 Yes [id number] Apply 2g [facility] % ointment 2-12 to ity of 00:00: affected [place] 00 areas BID Medical PRN Branch lidocaine 5 2021-08 Yes [id number] Apply 2g [facility] % ointment 2-12 to ity of 00:00: affected [place] 00 areas BID Medical PRN Branch lidocaine 5 2021-08 Yes [id number] Apply 2g [facility] % ointment 2-12 to ity of 00:00: affected [place] 00 areas BID Medical PRN Branch lidocaine 5 2021-08 Yes [id number] Apply 2g [facility] % ointment 2-12 to ity of 00:00: affected [place] 00 areas BID Medical PRN Branch lidocaine 5 2021-08 Yes [id number] Apply 2g [facility] % ointment 2-12 to ity of 00:00: affected [place] 00 areas BID Medical PRN Branch lidocaine 5 2021-08 Yes [id number] Apply 2g [facility] % ointment 2-12 to ity of 00:00: affected [place] 00 areas BID Medical PRN Branch lidocaine 5 2021-08 Yes [id number] Apply 2g [facility] % ointment 2-12 to ity of 00:00: affected [place] 00 areas BID Medical PRN Branch lidocaine 5 2021-08 Yes [id number] Apply 2g [facility] % ointment 2-12 to ity of 00:00: affected [place] 00 areas BID Medical PRN Branch lidocaine 5 2021-08- No [id number] Apply 2g [facility] % ointment 09-26 to ity of 00:00: 00:00 affected [place] 00 :00 areas BID Medical PRN Branch lidocaine 5 2021-08- No [id number] Apply 2g [facility] % ointment 09-26 to ity of 00:00: 00:00 affected [place] 00 :00 areas BID Medical PRN Branch lidocaine 5 2021-08- No [id number] Apply 2g [facility] % ointment -05-13 to ity of 00:00: 00:00 affected [place] 00 :00 areas BID Medical PRN Branch lidocaine 5 2021-08- No [id number] Apply 2g [facility] % ointment -05-13 to ity of 00:00: 00:00 affected [place] 00 :00 areas BID Medical PRN Branch ketorolac 2021-08- No [id number] 30mg Un luis f (TORADOL) 09-1330 ity of injection 16:30: 15:35 [place] 30 mg 00 :00 Medical Branch ketorolac 2021-08- No [id number] 30mg 30 mg, [facility] (TORADOL) 09-13 1130 Intramuscu ity of injection 16:30: 15:35 [place], ONCE, [place] 30 mg 00 :00 1 dose, On Tue Branch 07/14/22 at 1030, Routine ketorolac 2021-08- No [id number] 30mg [facility] (TORADOL) 09-1330 ity of injection 16:30: 15:35 [place] 30 mg 00 :00 Medical Branch ketorolac 2021-08- No [id number] 30mg 30 mg, [facility] (TORADOL) 09-13 Intramuscu ity of injection 16:30: 15:35 [place], ONCE, [place] 30 mg 00 :00 1 dose, On Tue Branch 07/14/22 at 1030, Routine tiZANidine 2021-08 Yes [id number] 2mg Take 1 [facility] 2 mg tablet 1-30 tablet by ity of 00:00: mouth [place] 00 every 8 Medical (eight) Branch hours as needed (muscle spasms). Lidocaine 5 2021-08 Yes [id number] Apply to [facility] % cream 1-30 area(s) 2 ity of 00:00: (two) [place] 00 times Medical daily as Branch needed for Pain (scale 4-6). Apply 5g to affected areas BID PRN Diclofenac 2021-08 Yes [id number] Apply 4g [facility] Sodium 1-30 to ity of (VOLTAREN) 00:00: affected [place] % gel 00 area QID Medical Branch traMADoL 50 2021-08 Yes [id number] 50mg Take 1 [facility] ers mg tablet 1-30 tablet by ity o f 00:00: mouth [place] 00 every 8 Medical (eight) Branch hours as needed for Pain (scale 7-10). Indication s: chronic pain FLUoxetine 2021-08 Yes [id number] 20mg Take 1 [facility] n[facility] 20 mg 1-30 capsule by ity of capsule 00:00: mouth in [place] 00 the Medical morning. Branch traZODone 2021-08 Yes [id number] 50mg Take 1 [facility] vers 50 mg 1-30 tablet by ity of tablet 00:00: mouth at [place] 00 bedtime. Medical Branch tiZANidine 2021-08 Yes [id number] 2mg Take 1 [facility] 2 mg tablet 1-30 tablet by ity of 00:00: mouth [place] 00 every 8 Medical (eight) Branch hours as needed (muscle spasms). Lidocaine 5 2021-08 Yes [id number] Apply to [facility] % cream 1-30 area(s) 2 ity of 00:00: (two) [place] 00 times Medical daily as Branch needed for Pain (scale 4-6). Apply 5g to affected areas BID PRN Diclofenac 2021-08 Yes [id number] Apply 4g [facility] Sodium 1-30 to ity of (VOLTAREN) 00:00: affected [place] % gel 00 area QID Medical Branch traMADoL 50 2021-08 Yes [id number] 50mg Take 1 [facility] ers mg tablet 1-30 tablet by ity o f 00:00: mouth [place] 00 every 8 Medical (eight) Branch hours as needed for Pain (scale 7-10). Indication s: chronic pain FLUoxetine 2021-08 Yes [id number] 20mg Take 1 [facility] nivers 20 mg 1-30 capsule by ity of capsule 00:00: mouth in [place] 00 the Medical morning. Branch traZODone 2021-08 Yes [id number] 50mg Take 1 [facility] vers 50 mg 1-30 tablet by ity of tablet 00:00: mouth at [place] 00 bedtime. Medical Branch tiZANidine 2021-08 Yes [id number] 2mg Take 1 [facility] 2 mg tablet 1-30 tablet by ity of 00:00: mouth [place] 00 every 8 Medical (eight) Branch hours as needed (muscle spasms). Lidocaine 2021-08 Yes [id number] Apply to [facility] % cream 1-30 area(s) 2 ity of 00:00: (two) [place] 00 times Medical daily as Branch needed for Pain (scale 4-6). Apply 5g to affected areas BID PRN Diclofenac 2021-08 Yes [id number] Apply 4g [facility] Sodium 1-30 to ity of (VOLTAREN) 00:00: affected [place] % gel 00 area QID Medical Branch traMADoL 50 2021-08 Yes [id number] 50mg Take 1 [facility] ers mg tablet 1-30 tablet by ity o f 00:00: mouth [place] 00 every 8 Medical (eight) Branch hours as needed for Pain (scale 7-10). Indication s: chronic pain FLUoxetine 2021-08 Yes [id number] 20mg Take 1 [facility] nivers 20 mg 1-30 capsule by ity of capsule 00:00: mouth in [place] 00 the Medical morning. Branch traZODone 2021-08 Yes [id number] 50mg Take 1 [facility] vers 50 mg 1-30 tablet by ity of tablet 00:00: mouth at [place] 00 bedtime. Medical Branch tiZANidine 2021-08 Yes [id number] 2mg Take 1 [facility] 2 mg tablet 1-30 tablet by ity of 00:00: mouth [place] 00 every 8 Medical (eight) Branch hours as needed (muscle spasms). Diclofenac 2021-08 Yes [id number] Apply 4g [facility] Sodium 1-30 to ity of (VOLTAREN) 00:00: affected [place] % gel 00 area QID Medical Branch traMADoL 50 2021-08 Yes [id number] 50mg Take 1 [facility] ers mg tablet 1-30 tablet by ity o f 00:00: mouth [place] 00 every 8 Medical (eight) Branch hours as needed for Pain (scale 7-10). Indication s: chronic pain FLUoxetine 2021-08 Yes [id number] 20mg Take 1 U nivers 20 mg 1-30 capsule by ity of capsule 00:00: mouth in [place] 00 the Medical morning. Branch traZODone 2021-08 Yes [id number] 50mg Take 1 [facility] vers 50 mg 1-30 tablet by ity of tablet 00:00: mouth at [place] 00 bedtime. Medical Branch tiZANidine 2021-08 Yes [id number] 2mg Take 1 [facility] 2 mg tablet 1-30 tablet by ity of 00:00: mouth [place] 00 every 8 Medical (eight) Branch hours as needed (muscle spasms). Diclofenac 2021-08 Yes [id number] Apply 4g [facility] Sodium 1-30 to ity of (VOLTAREN) 00:00: affected [place] % gel 00 area QID Medical Branch traMADoL 50 2021-08 Yes [id number] 50mg Take 1 [facility] ers mg tablet 1-30 tablet by ity o f 00:00: mouth [place] 00 every 8 Medical (eight) Branch hours as needed for Pain (scale 7-10). Indication s: chronic pain FLUoxetine 2021-08 Yes [id number] 20mg Take 1 U nivers 20 mg 1-30 capsule by ity of capsule 00:00: mouth in [place] 00 the Medical morning. Branch traZODone 2021-08 Yes [id number] 50mg Take 1 [facility] vers 50 mg 1-30 tablet by ity of tablet 00:00: mouth at [place] 00 bedtime. Medical Branch tiZANidine 2021-08 Yes [id number] 2mg Take 1 [facility] 2 mg tablet 1-30 tablet by ity of 00:00: mouth [place] 00 every 8 Medical (eight) Branch hours as needed (muscle spasms). Diclofenac 2021-08 Yes [id number] Apply 4g [facility] Sodium 1-30 to ity of (VOLTAREN) 00:00: affected [place] % gel 00 area QI Medical Branch traMADoL 50 2021-08 Yes [id number] 50mg Take 1 [facility] ers mg tablet 1-30 tablet by ity o f 00:00: mouth [place] 00 every 8 Medical (eight) Branch hours as needed for Pain (scale 7-10). Indication s: chronic pain FLUoxetine 2021-08 Yes [id number] 20mg Take 1 U nivers 20 mg 1-30 capsule by ity of capsule 00:00: mouth in [place] 00 the Medical morning. Branch traZODone 2021-08 Yes [id number] 50mg Take 1 [facility] vers 50 mg 1-30 tablet by ity of tablet 00:00: mouth at [place] 00 bedtime. Medical Branch tiZANidine 2021-08 Yes [id number] 2mg Take 1 [facility] 2 mg tablet 1-30 tablet by ity of 00:00: mouth [place] 00 every 8 Medical (eight) Branch hours as needed (muscle spasms). Diclofenac 2021-08 Yes [id number] Apply 4g [facility] Sodium 1-30 to ity of (VOLTAREN) 00:00: affected [place] % gel 00 area QID Medical Branch traMADoL 50 2021-08 Yes [id number] 50mg Take 1 [facility] ers mg tablet 1-30 tablet by ity o f 00:00: mouth [place] 00 every 8 Medical (eight) Branch hours as needed for Pain (scale 7-10). Indication s: chronic pain FLUoxetine 2021-08 Yes [id number] 20mg Take 1 U nivers 20 mg 1-30 capsule by ity of capsule 00:00: mouth in [place] 00 the Medical morning. Branch traZODone 2021-08 Yes [id number] 50mg Take 1 [facility] vers 50 mg 1-30 tablet by ity of tablet 00:00: mouth at [place] 00 bedtime. Medical Branch tiZANidine 2021-08 Yes [id number] 2mg Take 1 [facility] 2 mg tablet 1-30 tablet by ity of 00:00: mouth [place] 00 every 8 Medical (eight) Branch hours as needed (muscle spasms). Diclofenac 2021-08 Yes [id number] Apply 4g [facility] Sodium 1-30 to ity of (VOLTAREN) 00:00: affected [place] 1 % gel 00 [facility] Branch traMADoL 50 2021-08 Yes [id number] 50mg Take 1 [facility] ers mg tablet 1-30 tablet by ity o f 00:00: mouth [place] 00 every 8 Medical (eight) Branch hours as needed for Pain (scale 7-10). Indication s: chronic pain FLUoxetine 2021-08 Yes [id number] 20mg Take 1 U nivers 20 mg 1-30 capsule by ity of capsule 00:00: mouth in [place] 00 the Medical morning. Branch traZODone 2021-08 Yes [id number] 50mg Take 1 [facility] vers 50 mg 1-30 tablet by ity of tablet 00:00: mouth at [place] 00 bedtime. Medical Branch tiZANidine 2021-08 Yes [id number] 2mg Take 1 [facility] 2 mg tablet 1-30 tablet by ity of 00:00: mouth [place] 00 every 8 Medical (eight) Branch hours as needed (muscle spasms). Diclofenac 2021-08 Yes [id number] Apply 4g [facility] Sodium 1-30 to ity of (VOLTAREN) 00:00: affected [place] % gel 00 [facility] Medical Branch traMADoL 50 2021-08 Yes [id number] 50mg Take 1 [facility] ers mg tablet 1-30 tablet by ity o f 00:00: mouth [place] 00 every 8 Medical (eight) Branch hours as needed for Pain (scale 7-10). Indication s: chronic pain FLUoxetine 2021-08 Yes [id number] 20mg Take 1 U nivers 20 mg 1-30 capsule by ity of capsule 00:00: mouth in [place] 00 the Medical morning. Branch traZODone 2021-08 Yes [id number] 50mg Take 1 [facility] vers 50 mg 1-30 tablet by ity of tablet 00:00: mouth at [place] 00 bedtime. Medical Branch tiZANidine 2021-08 Yes [id number] 2mg Take 1 [facility] 2 mg tablet 1-30 tablet by ity of 00:00: mouth [place] 00 every 8 Medical (eight) Branch hours as needed (muscle spasms). Diclofenac 2021-08 Yes [id number] Apply 4g [facility] Sodium 1-30 to ity of (VOLTAREN) 00:00: affected [place] % gel 00 area [facility] Medical Branch traMADoL 50 2021-08 Yes [id number] 50mg Take 1 [facility] ers mg tablet 1-30 tablet by ity o f 00:00: mouth [place] 00 every 8 Medical (eight) Branch hours as needed for Pain (scale 7-10). Indication s: chronic pain FLUoxetine 2021-08 Yes [id number] 20mg Take 1 U nivers 20 mg 1-30 capsule by ity of capsule 00:00: mouth in [place] 00 the Medical morning. Branch traZODone 2021-08 Yes [id number] 50mg Take 1 [facility] vers 50 mg 1-30 tablet by ity of tablet 00:00: mouth at [place] 00 bedtime. Medical Branch tiZANidine 2021-08 Yes [id number] 2mg Take 1 [facility] 2 mg tablet 1-30 tablet by ity of 00:00: mouth [place] 00 every 8 Medical (eight) Branch hours as needed (muscle spasms). Diclofenac 2021-08 Yes [id number] Apply 4g [facility] Sodium 1-30 to ity of (VOLTAREN) 00:00: affected [place] % gel 00 area [facility] Medical Branch traMADoL 50 2021-08 Yes [id number] 50mg Take 1 [facility] ers mg tablet 1-30 tablet by ity o f 00:00: mouth [place] 00 every 8 Medical (eight) Branch hours as needed for Pain (scale 7-10). Indication s: chronic pain FLUoxetine 2021-08 Yes [id number] 20mg Take 1 U nivers 20 mg 1-30 capsule by ity of capsule 00:00: mouth in [place] 00 the Medical morning. Branch traZODone 2021-08 Yes [id number] 50mg Take 1 [facility] vers 50 mg 1-30 tablet by ity of tablet 00:00: mouth at [place] 00 bedtime. Medical Branch tiZANidine 2021-08 Yes [id number] 2mg Take 1 [facility] 2 mg tablet 1-30 tablet by ity of 00:00: mouth [place] 00 every 8 Medical (eight) Branch hours as needed (muscle spasms). Diclofenac 2021-08 Yes [id number] Apply 4g [facility] Sodium 1-30 to ity of (VOLTAREN) 00:00: affected [place] % gel 00 area [facility] Medical Branch traMADoL 50 2021-08 Yes [id number] 50mg Take 1 [facility] ers mg tablet 1-30 tablet by ity o f 00:00: mouth [place] 00 every 8 Medical (eight) Branch hours as needed for Pain (scale 7-10). Indication s: chronic pain FLUoxetine 2021-08 Yes [id number] 20mg Take 1 U nivers 20 mg 1-30 capsule by ity of capsule 00:00: mouth in [place] 00 the Medical morning. Branch traZODone 2021-08 Yes [id number] 50mg Take 1 [facility] vers 50 mg 1-30 tablet by ity of tablet 00:00: mouth at [place] 00 bedtime. Medical Branch tiZANidine 2021-08 Yes [id number] 2mg Take 1 [facility] 2 mg tablet 1-30 tablet by ity of 00:00: mouth [place] 00 every 8 Medical (eight) Branch hours as needed (muscle spasms). Diclofenac 2021-08 Yes [id number] Apply 4g [facility] Sodium 1-30 to ity of (VOLTAREN) 00:00: affected [place] 1 % gel [address] [facility] Branch traMADoL 50 2021-08 Yes [id number] 50mg Take 1 [facility] ers mg tablet 1-30 tablet by ity o f 00:00: mouth [place] 00 every 8 Medical (eight) Branch hours as needed for Pain (scale 7-10). Indication s: chronic pain FLUoxetine 2021-08 Yes [id number] 20mg Take 1 U nivers 20 mg 1-30 capsule by ity of capsule 00:00: mouth in [place] 00 the Medical morning. Branch traZODone 2021-08 Yes [id number] 50mg Take 1 [facility] vers 50 mg 1-30 tablet by ity of tablet 00:00: mouth at [place] 00 bedtime. Medical Branch Diclofenac 2021-08 Yes [id number] Apply 4g [facility] Sodium 1-30 to ity of (VOLTAREN) 00:00: affected [place] % gel 00 [facility] Medical Branch traMADoL 50 2022-1 Yes [id number] 50mg Take 1 [facility] ers mg tablet 1-30 tablet by ity o f 00:00: mouth [place] 00 every 8 Medical (eight) Branch hours as needed for Pain (scale 7-10). Indication s: chronic pain Diclofenac 2021-08 Yes [id number] Apply 4g [facility] Sodium 1-30 to ity of (VOLTAREN) 00:00: affected [place] % gel 00 area [facility] traMADoL 50 2021-08 Yes [id number] 50mg Take 1 [facility] ers mg tablet 1-30 tablet by ity o f 00:00: mouth [place] 00 every 8 Medical (eight) Branch hours as needed for Pain (scale 7-10). Indication s: chronic pain Diclofenac 2021-08 Yes [id number] Apply 4g [facility] Sodium 1-30 to ity of (VOLTAREN) 00:00: affected [place] % gel 00 [facility] traMADoL 50 2021-08 Yes [id number] 50mg Take 1 [facility] ers mg tablet 1-30 tablet by ity o f 00:00: mouth [place] 00 every 8 Medical (eight) Branch hours as needed for Pain (scale 7-10). Indication s: chronic pain Diclofenac 2021-08 Yes [id number] Apply 4g [facility] Sodium 1-30 to ity of (VOLTAREN) 00:00: affected [place] % gel 00 [facility] traMADoL 50 2021-08 Yes [id number] 50mg Take 1 [facility] ers mg tablet 1-30 tablet by ity o f 00:00: mouth [place] 00 every 8 Medical (eight) Branch hours as needed for Pain (scale 7-10). Indication s: chronic pain Diclofenac 2021-08 Yes [id number] Apply 4g [facility] Sodium 1-30 to ity of (VOLTAREN) 00:00: affected [place] % gel 00 [facility] traMADoL 50 2021-08 Yes [id number] 50mg Take 1 [facility] ers mg tablet 1-30 tablet by ity o f 00:00: mouth [place] 00 every 8 Medical (eight) Branch hours as needed for Pain (scale 7-10). Indication s: chronic pain Diclofenac 2021-08 Yes [id number] Apply 4g [facility] Sodium 1-30 to ity of (VOLTAREN) 00:00: affected [place] % gel 00 [facility] traMADoL 50 2022-1 Yes [id number] 50mg Take 1 [facility] ers mg tablet 1-30 tablet by ity o f 00:00: mouth [place] 00 every 8 Medical (eight) Branch hours as needed for Pain (scale 7-10). Indication s: chronic pain Diclofenac 2021-08 Yes [id number] Apply 4g [facility] Sodium 1-30 to ity of (VOLTAREN) 00:00: affected [place] % gel 00 area [facility] traMADoL 50 2021-08 Yes [id number] 50mg Take 1 [facility] ers mg tablet 1-30 tablet by ity o f 00:00: mouth [place] 00 every 8 Medical (eight) Branch hours as needed for Pain (scale 7-10). Indication s: chronic pain Diclofenac 2021-08 Yes [id number] Apply 4g [facility] Sodium 1-30 to ity of (VOLTAREN) 00:00: affected [place] % gel 00 [facility] traMADoL 50 2021-08 Yes [id number] 50mg Take 1 [facility] ers mg tablet 1-30 tablet by ity o f 00:00: mouth [place] 00 every 8 Medical (eight) Branch hours as needed for Pain (scale 7-10). Indication s: chronic pain Diclofenac 2021-08 Yes [id number] Apply 4g [facility] Sodium 1-30 to ity of (VOLTAREN) 00:00: affected [place] % gel 00 [facility] traMADoL 50 2021-08 Yes [id number] 50mg Take 1 [facility] ers mg tablet 1-30 tablet by ity o f 00:00: mouth [place] 00 every 8 Medical (eight) Branch hours as needed for Pain (scale 7-10). Indication s: chronic pain Diclofenac 2021-08 Yes [id number] Apply 4g [facility] Sodium 1-30 to ity of (VOLTAREN) 00:00: affected [place] % gel 00 [facility] traMADoL 50 2021-08 Yes [id number] 50mg Take 1 Univ ers mg tablet 1-30 tablet by ity o f 00:00: mouth [place] 00 every 8 Medical (eight) Branch hours as needed for Pain (scale 7-10). Indication s: chronic pain Diclofenac 2021-08 Yes [id number] Apply 4g [facility] Sodium 1-30 to ity of (VOLTAREN) 00:00: affected [place] % gel 00 [facility] traMADoL 50 2022-1 Yes [id number] 50mg Take 1 Univ ers mg tablet 1-30 tablet by ity o f 00:00: mouth [place] 00 every 8 Medical (eight) Branch hours as needed for Pain (scale 7-10). Indication s: chronic pain Diclofenac 2021-08 Yes [id number] Apply 4g [facility] Sodium 1-30 to ity of (VOLTAREN) 00:00: affected [place] % gel 00 area [facility] traMADoL 50 2021-08 Yes [id number] 50mg Take 1 Univ ers mg tablet 1-30 tablet by ity o f 00:00: mouth [place] 00 every 8 Medical (eight) Branch hours as needed for Pain (scale 7-10). Indication s: chronic pain Diclofenac 2021-08 Yes [id number] Apply 4g [facility] Sodium 1-30 to ity of (VOLTAREN) 00:00: affected [place] % gel 00 [facility] traMADoL 50 2021-08 Yes [id number] 50mg Take 1 Univ ers mg tablet 1-30 tablet by ity o f 00:00: mouth [place] 00 every 8 Medical (eight) Branch hours as needed for Pain (scale 7-10). Indication s: chronic pain Diclofenac 2021-08 Yes [id number] Apply 4g [facility] Sodium 1-30 to ity of (VOLTAREN) 00:00: affected [place] % gel 00 [facility] traMADoL 50 2021-08 Yes [id number] 50mg Take 1 Univ ers mg tablet 1-30 tablet by ity o f 00:00: mouth [place] 00 every 8 Medical (eight) Branch hours as needed for Pain (scale 7-10). Indication s: chronic pain Diclofenac 2021-08 Yes [id number] Apply 4g [facility] Sodium 1-30 to ity of (VOLTAREN) 00:00: affected [place] % gel 00 [facility] traMADoL 50 2021-08 Yes [id number] 50mg Take 1 Univ ers mg tablet 1-30 tablet by ity o f 00:00: mouth [place] 00 every 8 Medical (eight) Branch hours as needed for Pain (scale 7-10). Indication s: chronic pain Diclofenac 2021-08 Yes [id number] Apply 4g [facility] Sodium 1-30 to ity of (VOLTAREN) 00:00: affected [place] % gel 00 [facility] traMADoL 50 2022-1 Yes [id number] 50mg Take 1 Univ ers mg tablet 1-30 tablet by ity o f 00:00: mouth [place] 00 every 8 Medical (eight) Branch hours as needed for Pain (scale 7-10). Indication s: chronic pain Diclofenac 2021-08 Yes [id number] Apply 4g [facility] Sodium 1-30 to ity of (VOLTAREN) 00:00: affected [place] % gel 00 area [facility] traMADoL 50 2021-08 Yes [id number] 50mg Take 1 Univ ers mg tablet 1-30 tablet by ity o f 00:00: mouth [place] 00 every 8 Medical (eight) Branch hours as needed for Pain (scale 7-10). Indication s: chronic pain Diclofenac 2021-08 Yes [id number] Apply 4g [facility] Sodium 1-30 to ity of (VOLTAREN) 00:00: affected [place] % gel 00 [facility] traMADoL 50 2021-08 Yes [id number] 50mg Take 1 Univ ers mg tablet 1-30 tablet by ity o f 00:00: mouth [place] 00 every 8 Medical (eight) Branch hours as needed for Pain (scale 7-10). Indication s: chronic pain Diclofenac 2021-08 Yes [id number] Apply 4g [facility] Sodium 1-30 to ity of (VOLTAREN) 00:00: affected [place] % gel 00 [facility] traMADoL 50 2021-08 Yes [id number] 50mg Take 1 Univ ers mg tablet 1-30 tablet by ity o f 00:00: mouth [place] 00 every 8 Medical (eight) Branch hours as needed for Pain (scale 7-10). Indication s: chronic pain Diclofenac 2021-08 Yes [id number] Apply 4g [facility] Sodium 1-30 to ity of (VOLTAREN) 00:00: affected [place] % gel 00 [facility] traMADoL 50 2021-08 Yes [id number] 50mg Take 1 Univ ers mg tablet 1-30 tablet by ity o f 00:00: mouth [place] 00 every 8 Medical (eight) Branch hours as needed for Pain (scale 7-10). Indication s: chronic pain Diclofenac 2021-08 Yes [id number] Apply 4g [facility] Sodium 1-30 to ity of (VOLTAREN) 00:00: affected [place] % gel 00 [facility] traMADoL 50 2022-1 Yes [id number] 50mg Take 1 Univ ers mg tablet 1-30 tablet by ity o f 00:00: mouth [place] 00 every 8 Medical (eight) Branch hours as needed for Pain (scale 7-10). Indication s: chronic pain Diclofenac 2021-08 Yes [id number] Apply 4g [facility] Sodium 1-30 to ity of (VOLTAREN) 00:00: affected [place] % gel 00 area [facility] traMADoL 50 2021-08 Yes [id number] 50mg Take 1 [facility] ers mg tablet 1-30 tablet by ity o f 00:00: mouth [place] 00 every 8 Medical (eight) Branch hours as needed for Pain (scale 7-10). Indication s: chronic pain Diclofenac 2021-08 Yes [id number] Apply 4g [facility] Sodium 1-30 to ity of (VOLTAREN) 00:00: affected [place] % gel 00 [facility] traMADoL 50 2021-08 Yes [id number] 50mg Take 1 Univ ers mg tablet 1-30 tablet by ity o f 00:00: mouth [place] 00 every 8 Medical (eight) Branch hours as needed for Pain (scale 7-10). Indication s: chronic pain Diclofenac 2021-08 Yes [id number] Apply 4g [facility] Sodium 1-30 to ity of (VOLTAREN) 00:00: affected [place] % gel 00 [facility] traMADoL 50 2021-08 Yes [id number] 50mg Take 1 [facility] ers mg tablet 1-30 tablet by ity o f 00:00: mouth [place] 00 every 8 Medical (eight) Branch hours as needed for Pain (scale 7-10). Indication s: chronic pain Diclofenac 2021-08 Yes [id number] Apply 4g [facility] Sodium 1-30 to ity of (VOLTAREN) 00:00: affected [place] % gel 00 [facility] traMADoL 50 2021-08 Yes [id number] 50mg Take 1 Univ ers mg tablet 1-30 tablet by ity o f 00:00: mouth [place] 00 every 8 Medical (eight) Branch hours as needed for Pain (scale 7-10). Indication s: chronic pain Diclofenac 2021-08 Yes [id number] Apply 4g [facility] Sodium 1-30 to ity of (VOLTAREN) 00:00: affected [place] % gel 00 [facility] traMADoL 50 2022-1 Yes [id number] 50mg Take 1 Univ ers mg tablet 1-30 tablet by ity o f 00:00: mouth [place] 00 every 8 Medical (eight) Branch hours as needed for Pain (scale 7-10). Indication s: chronic pain Diclofenac 2021-08 Yes [id number] Apply 4g [facility] Sodium 1-30 to ity of (VOLTAREN) 00:00: affected [place] % gel 00 area [facility] traMADoL 50 2021-08 Yes [id number] 50mg Take 1 [facility] ers mg tablet 1-30 tablet by ity o f 00:00: mouth [place] 00 every 8 Medical (eight) Branch hours as needed for Pain (scale 7-10). Indication s: chronic pain Diclofenac 2021-08 Yes [id number] Apply 4g [facility] Sodium 1-30 to ity of (VOLTAREN) 00:00: affected [place] % gel 00 [facility] traMADoL 50 2021-08 Yes [id number] 50mg Take 1 Univ ers mg tablet 1-30 tablet by ity o f 00:00: mouth [place] 00 every 8 Medical (eight) Branch hours as needed for Pain (scale 7-10). Indication s: chronic pain Diclofenac 2021-08 Yes [id number] Apply 4g [facility] Sodium 1-30 to ity of (VOLTAREN) 00:00: affected [place] % gel 00 [facility] traMADoL 50 2021-08 Yes [id number] 50mg Take 1 [facility] ers mg tablet 1-30 tablet by ity o f 00:00: mouth [place] 00 every 8 Medical (eight) Branch hours as needed for Pain (scale 7-10). Indication s: chronic pain Diclofenac 2021-08 Yes [id number] Apply 4g [facility] Sodium 1-30 to ity of (VOLTAREN) 00:00: affected [place] % gel 00 [facility] traMADoL 50 2021-08 Yes [id number] 50mg Take 1 [facility] ers mg tablet 1-30 tablet by ity o f 00:00: mouth [place] 00 every 8 Medical (eight) Branch hours as needed for Pain (scale 7-10). Indication s: chronic pain Diclofenac 2021-08 Yes [id number] Apply 4g [facility] Sodium 1-30 to ity of (VOLTAREN) 00:00: affected [place] % gel 00 [facility] traMADoL 50 2022-1 Yes [id number] 50mg Take 1 [facility] ers mg tablet 1-30 tablet by ity o f 00:00: mouth [place] 00 every 8 Medical (eight) Branch hours as needed for Pain (scale 7-10). Indication s: chronic pain Diclofenac 2021-08 Yes [id number] Apply 4g [facility] Sodium 1-30 to ity of (VOLTAREN) 00:00: affected [place] % gel 00 [facility] traMADoL 50 2021-08 Yes [id number] 50mg Take 1 [facility] ers mg tablet 1-30 tablet by ity o f 00:00: mouth [place] 00 every 8 Medical (eight) Branch hours as needed for Pain (scale 7-10). Indication s: chronic pain Diclofenac 2021-08 Yes [id number] Apply 4g [facility] Sodium 1-30 to ity of (VOLTAREN) 00:00: affected [place] % gel 00 [facility] traMADoL 50 2021-08 Yes [id number] 50mg Take 1 [facility] ers mg tablet 1-30 tablet by ity o f 00:00: mouth [place] 00 every 8 Medical (eight) Branch hours as needed for Pain (scale 7-10). Indication s: chronic pain Diclofenac 2021-08 Yes [id number] Apply 4g [facility] Sodium 1-30 to ity of (VOLTAREN) 00:00: affected [place] % gel 00 [facility] traMADoL 50 2021-08 Yes [id number] 50mg Take [...] Indication s: chronic pain Diclofenac 2021-08- No [id number] Apply 4g [facility] Sodium -30 - to ity of (VOLTAREN) 00:00: 00:00 affected [place] 1 % gel 00 :00 [facility] Diclofenac 2021-08- No [id number] Apply 4g [facility] Sodium -30 - to ity of (VOLTAREN) 00:00: 00:00 affected [place] 1 % gel 00 :00 [facility] traMADoL 50 2021-08- No [id number] 50mg Take 1 Uni vers mg tablet 09-13 tablet by ity of 00:00: 00:00 mouth [place] 00 :00 every 8 Medical (eight) Branch hours as needed for Pain (scale 7-10). Indication s: chronic pain Diclofenac 2021-08- No [id number] Apply 4g [facility] Sodium 09-13 to ity of (VOLTAREN) 00:00: 00:00 affected [place] 1 % gel 00 :00 [facility] traMADoL 50 2021-08- No [id number] 50mg Take 1 [facility] vers mg tablet 09-13 tablet by ity of 00:00: 00:00 mouth [place] 00 :00 every 8 Medical (eight) Branch hours as needed for Pain (scale 7-10). Indication s: chronic pain Diclofenac 2021-08- No [id number] Apply 4g [facility] Sodium 09-13 to ity of (VOLTAREN) 00:00: 00:00 affected [place] 1 % gel 00 :00 [facility] traMADoL 50 2021-08- No [id number] 50mg Take 1 [facility] vers mg tablet 09-13 tablet by ity of 00:00: 00:00 mouth [place] 00 :00 every 8 Medical (eight) Branch hours as needed for Pain (scale 7-10). Indication s: chronic pain tiZANidine 2021-08- No [id number] 2mg Take 1 [facility] 2 mg tablet 09-13 tablet by it y of 00:00: 00:00 mouth [place] 00 :00 every 8 Medical (eight) Branch hours as needed (muscle spasms). FLUoxetine 2021-08- No [id number] 20mg Take 1 [facility] 20 mg 09-13- capsule by ity of capsule 00:00: 00:00 mouth in [place] 00 :00 the Medical morning. Branch traZODone 2021-08- No [id number] 50mg Take 1 Un luis f 50 mg 09-13- tablet by ity of tablet 00:00: 00:00 mouth at [place] 00 :00 bedtime. Medical Branch tiZANidine 2021-08- No [id number] 2mg Take 1 [facility] 2 mg tablet -30 04-06 tablet by it y of 00:00: 00:00 mouth [place] 00 :00 every 8 Medical (eight) Branch hours as needed (muscle spasms). FLUoxetine 2021-08- No [id number] 20mg Take 1 [facility] 20 mg 1-30 04-06 capsule by ity of capsule 00:00: 00:00 mouth in [place] 00 :00 the Medical morning. Branch traZODone 2021-08- No [id number] 50mg Take 1 Un luis f 50 mg 1-30 04-06 tablet by ity of tablet 00:00: 00:00 mouth at [place] 00 :00 bedtime. Medical Branch tiZANidine 2021-08- No [id number] 2mg Take 1 [facility] 2 mg tablet 1-30 04-06 tablet by it y of 00:00: 00:00 mouth [place] 00 :00 every 8 Medical (eight) Branch hours as needed (muscle spasms). FLUoxetine 2021-08- No [id number] 20mg Take 1 [facility] 20 mg 1-30 04-06 capsule by ity of capsule 00:00: 00:00 mouth in [place] 00 :00 the Medical morning. Branch traZODone 2021-08- No [id number] 50mg Take 1 Un luis f 50 mg 1-30 04-06 tablet by ity of tablet 00:00: 00:00 mouth at [place] 00 :00 bedtime. Medical Branch tiZANidine 2021-08- No [id number] 2mg Take 1 [facility] 2 mg tablet -30 04-06 tablet by it y of 00:00: 00:00 mouth [place] 00 :00 every 8 Medical (eight) Branch hours as needed (muscle spasms). FLUoxetine 2021-08- No [id number] 20mg Take 1 [facility] 20 mg 1-30 04-06 capsule by ity of capsule 00:00: 00:00 mouth in [place] 00 :00 the Medical morning. Branch traZODone 2021-08- No [id number] 50mg Take 1 Un luis f 50 mg 1-30 04-06 tablet by ity of tablet 00:00: 00:00 mouth at [place] 00 :00 bedtime. Medical Branch Lidocaine 5 2021-08- No [id number] Apply to [facility] % cream 1-30 12-12 area(s) 2 ity of 00:00: 00:00 (two) [place] 00 :00 times Medical daily as Branch needed for Pain (scale 4-6). Apply 5g to affected areas BID PRN hydrALAZINE 0 Yes [id number] 50mg Take 1 [facility] 50 mg 7-26 tablet by ity of tablet 00:00: mouth in [place] 00 the Medical morning Branch and 1 tablet at noon and 1 tablet in the evening. hydrALAZINE 2021-0 Yes [id number] 50mg Take 1 [facility] 50 mg 7-26 tablet by ity of tablet 00:00: mouth in [place] 00 the Medical morning Branch and 1 tablet at noon and 1 tablet in the evening. hydrALAZINE 0 Yes [id number] 50mg Take 1 [facility] 50 mg 7-26 tablet by ity of tablet 00:00: mouth in [place] [address] the [facility] morning Branch and 1 tablet at noon and 1 tablet in the evening. hydrALAZINE 0 Yes [id number] 50mg Take 1 [facility] 50 mg 7-26 tablet by ity of tablet 00:00: mouth in [place] [address] the [facility] morning Branch and 1 tablet at noon and 1 tablet in the evening. hydrALAZINE 2021-0 Yes [id number] 50mg Take 1 [facility] 50 mg 7-26 tablet by ity of tablet 00:00: mouth in [place] [address] the [facility] morning Branch and 1 tablet at noon and 1 tablet in the evening. hydrALAZINE 2021-0 Yes [id number] 50mg Take 1 [facility] 50 mg 7-26 tablet by ity of tablet 00:00: mouth in [place] 00 the Medical morning Branch and 1 tablet at noon and 1 tablet in the evening. hydrALAZINE 2021-0 Yes [id number] 50mg Take 1 [facility] 50 mg 7-26 tablet by ity of tablet 00:00: mouth in [place] [address] the [facility] morning Branch and 1 tablet at noon and 1 tablet in the evening. hydrALAZINE 0 2021- No [id number] 50mg Take 1 [facility] 50 mg 7-26 12-21 tablet by ity of tablet 00:00: 00:00 mouth in [place] 00 :00 the [facility] morning Branch and 1 tablet at noon and 1 tablet in the evening. hydrALAZINE 2021- No [id number] 50mg Take 1 [facility] 50 mg 7-26 12-21 tablet by ity of tablet 00:00: 00:00 mouth in [place] 00 :00 the [facility] and 1 tablet at noon and 1 tablet in the evening. hydrALAZINE 2021- No [id number] 50mg Take 1 [facility] 50 mg 7-26 12-21 tablet by ity of tablet 00:00: 00:00 mouth in [place] 00 :00 the [facility] and 1 tablet at noon and 1 tablet in the evening. hydrALAZINE 2021- No [id number] 50mg Take 1 [facility] 50 mg 7-26 12-21 tablet by ity of tablet 00:00: 00:00 mouth in [place] 00 :00 the [facility] and 1 tablet at noon and 1 tablet in the evening. hydrALAZINE 2021- No [id number] 50mg Take 1 [facility] 50 mg 7-26 12-21 tablet by ity of tablet 00:00: 00:00 mouth in [place] 00 :00 the [facility] and 1 tablet at noon and 1 tablet in the evening. ipratropium 2021- No 2{puff} Inhale 2 [facility] (ATROVENT 7-25 07-25 Puffs 4 ity of HFA) 17 15:47: 00:00 (four) [place] mcg/actuati 00 :00 times Medical on inhaler daily. Branch atorvastati Yes [id number] 40mg Take 1 [facility] n 40 mg 7-25 tablet by ity of tablet 00:00: mouth at [place] 00 bedtime. [facility] lipase-prot Yes [id number] 1{capsu Take 1 [facility] ease-amylas 7-25 le} capsule by it y of e 00:00: mouth in [place] 12,000-38,0 00 the [facility] 00 -60,000 [facility] unit and 1 capsule capsule at noon and 1 capsule in the evening. Take with meals. terazosin 5 Yes [id number] 5mg Take 1 [facility] mg capsule 7-25 capsule by ity of 00:00: mouth [place] 00 every Medical evening. Branch triamterene Yes [id number] 1{tbl} Take 1 [facility] -hydrochlor 7-25 tablet by ity of othiazid 00:00: mouth in [place] 37.5-25 mg 00 the Medical tablet morning. Branch amLODIPine- Yes [id number] 1{capsu Take 1 [facility] benazepriL 7-25 le} capsule by ity of 10-40 mg 00:00: mouth in [place] per capsule 00 the Medical morning. Branch aspirin 325 Yes [id number] 325mg Take 1 [facility] mg tablet 7-25 tablet by ity o f 00:00: mouth [place] 00 daily with Medical breakfast. Branch carvediloL Yes [id number] 25mg Take 1 [facility] 25 mg 7-25 tablet by ity of tablet 00:00: mouth in [place] 00 the Medical morning Branch and 1 tablet in the evening. Take with meals. TAKE ONE (1) TABLET(S) BY MOUTH TWICE A DAY WITH FOOD. nicotine 14 Yes [id number] 1{patch Apply 1 [facility] mg/24 hr 7-25 } Patch to ity of patch 00:00: area(s) [place] 00 every 24 Medical ([facility]) hours. Apply 21mg patch daily x 6 weeks; then apply 14mf patch daily x 2 weeks; then apply 7mg patch daily x 2 weeks. Stop smoking on initiation of therapy nicotine 21 Yes [id number] 1{patch Apply 1 [facility] mg/24 hr 7-25 } Patch to ity of patch 00:00: area(s) in [place] 00 the Medical morning. Branch Apply 21mg patch daily x 6 weeks; then apply 14mg patch daily x 2 weeks; then apply 7mg patch daily x 2 weeks. Stop smoking on initiation of therapy nicotine 7 Yes [id number] 1{patch Apply 1 [facility] mg/24 hr 7-25 } Patch to ity of patch 00:00: area(s) [place] 00 every 24 Medical ([facility] ur) hours. Apply 21mg patch daily x 6 weeks; then apply 14mg patch daily x 2 weeks; then apply 7mg patch daily x 2 weeks. Stop smoking on initiation of therapy glipiZIDE Yes [id number] TAKE ONE [facility] 10 mg 7-25 (1) ity of tablet 00:00: TABLET(S) [place] 00 BY MOUTH Medical ONCE A DAY Branch BEFORE MEALS. atorvastati Yes [id number] 40mg Take 1 [facility] n 40 mg 7-25 tablet by ity of tablet 00:00: mouth at [place] 00 bedtime. Medical Branch lipase-prot Yes [id number] 1{capsu Take 1 [facility] ease-amylas 7-25 le} capsule by it y of e 00:00: mouth in [place] 12,000-38,0 00 the Medical 00 -60,000 morning Branch unit and 1 capsule capsule at noon and 1 capsule in the evening. Take with meals. terazosin 5 Yes [id number] 5mg Take 1 [facility] mg capsule 7-25 capsule by ity of 00:00: mouth [place] 00 every Medical evening. Branch triamterene Yes [id number] 1{tbl} Take 1 [facility] -hydrochlor 7-25 tablet by ity of othiazid 00:00: mouth in [place] 37.5-25 mg 00 the Medical tablet morning. Branch amLODIPine- Yes [id number] 1{capsu Take 1 [facility] benazepriL 7-25 le} capsule by ity of 10-40 mg 00:00: mouth in [place] per capsule 00 the Medical morning. Branch aspirin 325 Yes [id number] 325mg Take 1 [facility] mg tablet 7-25 tablet by ity o f 00:00: mouth [place] 00 daily with Medical breakfast. Branch carvediloL Yes [id number] 25mg Take 1 [facility] 25 mg 7-25 tablet by ity of tablet 00:00: mouth in [place] 00 the Medical morning Branch and 1 tablet in the evening. Take with meals. TAKE ONE (1) TABLET(S) BY MOUTH TWICE A DAY WITH FOOD. nicotine 14 Yes [id number] 1{patch Apply 1 [facility] mg/24 hr 7-25 } Patch to ity of patch 00:00: area(s) [place] 00 every 24 Medical ([facility] ur) hours. Apply 21mg patch daily x 6 weeks; then apply 14mf patch daily x 2 weeks; then apply 7mg patch daily x 2 weeks. Stop smoking on initiation of therapy nicotine 21 Yes [id number] 1{patch Apply 1 [facility] mg/24 hr 7-25 } Patch to ity of patch 00:00: area(s) in [place] 00 the Medical morning. Branch Apply 21mg patch daily x 6 weeks; then apply 14mg patch daily x 2 weeks; then apply 7mg patch daily x 2 weeks. Stop smoking on initiation of therapy nicotine 7 Yes [id number] 1{patch Apply 1 [facility] mg/24 hr 7-25 } Patch to ity of patch 00:00: area(s) [place] 00 every 24 Medical (tw[facility] Branch ur) hours. Apply 21mg patch daily x 6 weeks; then apply 14mg patch daily x 2 weeks; then apply 7mg patch daily x 2 weeks. Stop smoking on initiation of therapy glipiZIDE Yes [id number] TAKE ONE [facility] 10 mg 7-25 (1) ity of tablet 00:00: TABLET(S) [place] 00 BY MOUTH Medical ONCE A DAY Branch BEFORE MEALS. atorvastati Yes [id number] 40mg Take 1 [facility] n 40 mg 7-25 tablet by ity of tablet 00:00: mouth at [place] 00 bedtime. Medical Branch lipase-prot Yes [id number] 1{capsu Take 1 [facility] ease-amylas 7-25 le} capsule by it y of e 00:00: mouth in [place] 12,000-38,0 00 the Medical 00 -60,000 morning Branch unit and 1 capsule capsule at noon and 1 capsule in the evening. Take with meals. terazosin 5 Yes [id number] 5mg Take 1 [facility] mg capsule 7-25 capsule by ity of 00:00: mouth [place] 00 every Medical evening. Branch triamterene Yes [id number] 1{tbl} Take 1 [facility] -hydrochlor 7-25 tablet by ity of othiazid 00:00: mouth in [place] 37.5-25 mg 00 the Medical tablet morning. Branch amLODIPine- Yes [id number] 1{capsu Take 1 [facility] benazepriL 7-25 le} capsule by ity of 10-40 mg 00:00: mouth in [place] per capsule 00 the Medical morning. Branch aspirin 325 0 Yes [id number] 325mg Take 1 [facility] mg tablet 7-25 tablet by ity o f 00:00: mouth [place] 00 daily with Medical breakfast. Branch carvediloL Yes [id number] 25mg Take 1 [facility] 25 mg 7-25 tablet by ity of tablet 00:00: mouth in [place] 00 the Medical morning Branch and 1 tablet in the evening. Take with meals. TAKE ONE (1) TABLET(S) BY MOUTH TWICE A DAY WITH FOOD. nicotine 14 Yes [id number] 1{patch Apply 1 [facility] mg/24 hr 7-25 } Patch to ity of patch 00:00: area(s) [place] 00 every 24 Medical ([facility] ur) hours. Apply 21mg patch daily x 6 weeks; then apply 14mf patch daily x 2 weeks; then apply 7mg patch daily x 2 weeks. Stop smoking on initiation of therapy nicotine 21 Yes [id number] 1{patch Apply 1 [facility] mg/24 hr 7-25 } Patch to ity of patch 00:00: area(s) in [place] 00 the Medical morning. Branch Apply 21mg patch daily x 6 weeks; then apply 14mg patch daily x 2 weeks; then apply 7mg patch daily x 2 weeks. Stop smoking on initiation of therapy nicotine 7 Yes [id number] 1{patch Apply 1 [facility] mg/24 hr 7-25 } Patch to ity of patch 00:00: area(s) [place] 00 every 24 Medical ([facility] ur) hours. Apply 21mg patch daily x 6 weeks; then apply 14mg patch daily x 2 weeks; then apply 7mg patch daily x 2 weeks. Stop smoking on initiation of therapy glipiZIDE Yes [id number] TAKE ONE [facility] 10 mg 7-25 (1) ity of tablet 00:00: TABLET(S) [place] 00 BY MOUTH Medical ONCE A DAY Branch BEFORE MEALS. atorvastati Yes [id number] 40mg Take 1 [facility] n 40 mg 7-25 tablet by ity of tablet 00:00: mouth at [place] 00 bedtime. Medical Branch lipase-prot Yes [id number] 1{capsu Take 1 [facility] ease-amylas 7-25 le} capsule by it y of e 00:00: mouth in [place] 12,000-38,0 00 the [facility] 00 -60,000 morning Branch unit and 1 capsule capsule at noon and 1 capsule in the evening. Take with meals. terazosin 5 Yes [id number] 5mg Take 1 [facility] mg capsule 7-25 capsule by ity of 00:00: mouth [place] 00 every Medical evening. Branch triamterene Yes [id number] 1{tbl} Take 1 [facility] -hydrochlor 7-25 tablet by ity of othiazid 00:00: mouth in [place] 37.5-25 mg 00 the Medical tablet morning. Branch amLODIPine- Yes [id number] 1{capsu Take 1 [facility] benazepriL 7-25 le} capsule by ity of 10-40 mg 00:00: mouth in [place] per capsule 00 the Medical morning. Branch aspirin 325 Yes [id number] 325mg Take 1 [facility] mg tablet 7-25 tablet by ity o f 00:00: mouth [place] 00 daily with Medical breakfast. Branch carvediloL Yes [id number] 25mg Take 1 [facility] 25 mg 7-25 tablet by ity of tablet 00:00: mouth in [place] 00 the Medical morning Branch and 1 tablet in the evening. Take with meals. TAKE ONE (1) TABLET(S) BY MOUTH TWICE A DAY WITH FOOD. nicotine 14 Yes [id number] 1{patch Apply 1 [facility] mg/24 hr 7-25 } Patch to ity of patch 00:00: area(s) [place] 00 every 24 Medical ([facility]) hours. Apply 21mg patch daily x 6 weeks; then apply 14mf patch daily x 2 weeks; then apply 7mg patch daily x 2 weeks. Stop smoking on initiation of therapy nicotine 21 Yes [id number] 1{patch Apply 1 [facility] mg/24 hr 7-25 } Patch to ity of patch 00:00: area(s) in [place] 00 the Medical morning. Branch Apply 21mg patch daily x 6 weeks; then apply 14mg patch daily x 2 weeks; then apply 7mg patch daily x 2 weeks. Stop smoking on initiation of therapy nicotine 7 Yes [id number] 1{patch Apply 1 [facility] mg/24 hr 7-25 } Patch to ity of patch 00:00: area(s) [place] 00 every 24 Medical ([facility] ur) hours. Apply 21mg patch daily x 6 weeks; then apply 14mg patch daily x 2 weeks; then apply 7mg patch daily x 2 weeks. Stop smoking on initiation of therapy glipiZIDE Yes [id number] TAKE ONE [facility] 10 mg 7-25 (1) ity of tablet 00:00: TABLET(S) [place] 00 BY MOUTH Medical ONCE A DAY Branch BEFORE MEALS. atorvastati Yes [id number] 40mg Take 1 [facility] n 40 mg 7-25 tablet by ity of tablet 00:00: mouth at [place] 00 bedtime. Medical Branch lipase-prot Yes [id number] 1{capsu Take 1 [facility] ease-amylas 7-25 le} capsule by it y of e 00:00: mouth in [place] 12,000-38,0 00 the Medical 00 -60,000 morning Branch unit and 1 capsule capsule at noon and 1 capsule in the evening. Take with meals. terazosin 5 Yes [id number] 5mg Take 1 [facility] mg capsule 7-25 capsule by ity of 00:00: mouth [place] 00 every Medical evening. Branch triamterene Yes [id number] 1{tbl} Take 1 [facility] -hydrochlor 7-25 tablet by ity of othiazid 00:00: mouth in [place] 37.5-25 mg 00 the Medical tablet morning. Branch amLODIPine- Yes [id number] 1{capsu Take 1 [facility] benazepriL 7-25 le} capsule by ity of 10-40 mg 00:00: mouth in [place] per capsule 00 the Medical morning. Branch aspirin 325 Yes [id number] 325mg Take 1 [facility] mg tablet 7-25 tablet by ity o f 00:00: mouth [place] 00 daily with Medical breakfast. Branch carvediloL Yes [id number] 25mg Take 1 [facility] 25 mg 7-25 tablet by ity of tablet 00:00: mouth in [place] 00 the Medical morning Branch and 1 tablet in the evening. Take with meals. TAKE ONE (1) TABLET(S) BY MOUTH TWICE A DAY WITH FOOD. nicotine 14 Yes [id number] 1{patch Apply 1 [facility] mg/24 hr 7-25 } Patch to ity of patch 00:00: area(s) [place] 00 every 24 Medical ([facility] ur) hours. Apply 21mg patch daily x 6 weeks; then apply 14mf patch daily x 2 weeks; then apply 7mg patch daily x 2 weeks. Stop smoking on initiation of therapy nicotine 21 Yes [id number] 1{patch Apply 1 [facility] mg/24 hr 7-25 } Patch to ity of patch 00:00: area(s) in [place] 00 the Medical morning. Branch Apply 21mg patch daily x 6 weeks; then apply 14mg patch daily x 2 weeks; then apply 7mg patch daily x 2 weeks. Stop smoking on initiation of therapy nicotine 7 Yes [id number] 1{patch Apply 1 [facility] mg/24 hr 7-25 } Patch to ity of patch 00:00: area(s) [place] 00 every 24 Medical ([facility] ur) hours. Apply 21mg patch daily x 6 weeks; then apply 14mg patch daily x 2 weeks; then apply 7mg patch daily x 2 weeks. Stop smoking on initiation of therapy glipiZIDE Yes [id number] TAKE ONE [facility] 10 mg 7-25 (1) ity of tablet 00:00: TABLET(S) [place] 00 BY MOUTH Medical ONCE A DAY Branch BEFORE MEALS. atorvastati Yes [id number] 40mg Take 1 [facility] n 40 mg 7-25 tablet by ity of tablet 00:00: mouth at [place] 00 bedtime. Medical Branch lipase-prot Yes [id number] 1{capsu Take 1 [facility] ease-amylas 7-25 le} capsule by it y of e 00:00: mouth in [place] 12,000-38,0 00 the Medical 00 -60,000 morning Branch unit and 1 capsule capsule at noon and 1 capsule in the evening. Take with meals. terazosin 5 Yes [id number] 5mg Take 1 [facility] mg capsule 7-25 capsule by ity of 00:00: mouth [place] 00 every Medical evening. Branch triamterene Yes [id number] 1{tbl} Take 1 [facility] -hydrochlor 7-25 tablet by ity of othiazid 00:00: mouth in [place] 37.5-25 mg 00 the Medical tablet morning. Branch amLODIPine- Yes [id number] 1{capsu Take 1 [facility] benazepriL 7-25 le} capsule by ity of 10-40 mg 00:00: mouth in [place] per capsule 00 the Medical morning. Branch aspirin 325 Yes [id number] 325mg Take 1 [facility] mg tablet 7-25 tablet by ity o f 00:00: mouth [place] 00 daily with Medical breakfast. Branch carvediloL Yes [id number] 25mg Take 1 [facility] 25 mg 7-25 tablet by ity of tablet 00:00: mouth in [place] 00 the Medical morning Branch and 1 tablet in the evening. Take with meals. TAKE ONE (1) TABLET(S) BY MOUTH TWICE A DAY WITH FOOD. nicotine 14 Yes [id number] 1{patch Apply 1 [facility] mg/24 hr 7-25 } Patch to ity of patch 00:00: area(s) [place] 00 every 24 Medical ([facility] Branch ur) hours. Apply 21mg patch daily x 6 weeks; then apply 14mf patch daily x 2 weeks; then apply 7mg patch daily x 2 weeks. Stop smoking on initiation of therapy nicotine 21 Yes [id number] 1{patch Apply 1 [facility] mg/24 hr 7-25 } Patch to ity of patch 00:00: area(s) in [place] 00 the Medical morning. Branch Apply 21mg patch daily x 6 weeks; then apply 14mg patch daily x 2 weeks; then apply 7mg patch daily x 2 weeks. Stop smoking on initiation of therapy nicotine 7 Yes [id number] 1{patch Apply 1 [facility] mg/24 hr 7-25 } Patch to ity of patch 00:00: area(s) [place] 00 every 24 Medical ([facility]) hours. Apply 21mg patch daily x 6 weeks; then apply 14mg patch daily x 2 weeks; then apply 7mg patch daily x 2 weeks. Stop smoking on initiation of therapy glipiZIDE Yes [id number] TAKE ONE [facility] 10 mg 7-25 (1) ity of tablet 00:00: TABLET(S) [place] 00 BY MOUTH Medical ONCE A DAY Branch BEFORE MEALS. atorvastati Yes [id number] 40mg Take 1 [facility] n 40 mg 7-25 tablet by ity of tablet 00:00: mouth at [place] 00 bedtime. Medical Branch lipase-prot Yes [id number] 1{capsu Take 1 [facility] ease-amylas 7-25 le} capsule by it y of e 00:00: mouth in [place] 12,000-38,0 00 the Medical 00 -60,000 morning Branch unit and 1 capsule capsule at noon and 1 capsule in the evening. Take with meals. terazosin 5 Yes [id number] 5mg Take 1 [facility] mg capsule 7-25 capsule by ity of 00:00: mouth [place] 00 every Medical evening. Branch triamterene Yes [id number] 1{tbl} Take 1 [facility] -hydrochlor 7-25 tablet by ity of othiazid 00:00: mouth in [place] 37.5-25 mg 00 the Medical tablet morning. Branch amLODIPine- Yes [id number] 1{capsu Take 1 [facility] benazepriL 7-25 le} capsule by ity of 10-40 mg 00:00: mouth in [place] per capsule 00 the Medical morning. Branch aspirin 325 Yes [id number] 325mg Take 1 [facility] mg tablet 7-25 tablet by ity o f 00:00: mouth [place] 00 daily with Medical breakfast. Branch carvediloL Yes [id number] 25mg Take 1 [facility] 25 mg 7-25 tablet by ity of tablet 00:00: mouth in [place] 00 the Medical morning Branch and 1 tablet in the evening. Take with meals. TAKE ONE (1) TABLET(S) BY MOUTH TWICE A DAY WITH FOOD. nicotine Yes [id number] 1{patch Apply 1 [facility] mg/24 hr 7-25 } Patch to ity of patch 00:00: area(s) [place] 00 every 24 Medical ([facility] Branch ur) hours. Apply 21mg patch daily x 6 weeks; then apply 14mf patch daily x 2 weeks; then apply 7mg patch daily x 2 weeks. Stop smoking on initiation of therapy nicotine 21 Yes [id number] 1{patch Apply 1 [facility] mg/24 hr 7-25 } Patch to ity of patch 00:00: area(s) in [place] 00 the Medical morning. Branch Apply 21mg patch daily x 6 weeks; then apply 14mg patch daily x 2 weeks; then apply 7mg patch daily x 2 weeks. Stop smoking on initiation of therapy nicotine 7 Yes [id number] 1{patch Apply 1 [facility] mg/24 hr 7-25 } Patch to ity of patch 00:00: area(s) [place] 00 every 24 Medical ([facility] ur) hours. Apply 21mg patch daily x 6 weeks; then apply 14mg patch daily x 2 weeks; then apply 7mg patch daily x 2 weeks. Stop smoking on initiation of therapy glipiZIDE Yes [id number] TAKE ONE [facility] 10 mg 7-25 (1) ity of tablet 00:00: TABLET(S) [place] 00 BY MOUTH Medical ONCE A DAY Branch BEFORE MEALS. atorvastati Yes [id number] 40mg Take 1 [facility] n 40 mg 7-25 tablet by ity of tablet 00:00: mouth at [place] 00 bedtime. Medical Branch lipase-prot Yes [id number] 1{capsu Take 1 [facility] ease-amylas 7-25 le} capsule by it y of e 00:00: mouth in [place] 12,000-38,0 00 the [facility] 00 -60,000 morning Branch unit and 1 capsule capsule at noon and 1 capsule in the evening. Take with meals. terazosin 5 Yes [id number] 5mg Take 1 [facility] mg capsule 7-25 capsule by ity of 00:00: mouth [place] 00 every Medical evening. Branch triamterene Yes [id number] 1{tbl} Take 1 [facility] -hydrochlor 7-25 tablet by ity of othiazid 00:00: mouth in [place] 37.5-25 mg 00 the Medical tablet morning. Branch amLODIPine- Yes [id number] 1{capsu Take 1 [facility] benazepriL 7-25 le} capsule by ity of 10-40 mg 00:00: mouth in [place] per capsule 00 the Medical morning. Branch aspirin 325 Yes [id number] 325mg Take 1 [facility] mg tablet 7-25 tablet by ity o f 00:00: mouth [place] 00 daily with Medical breakfast. Branch carvediloL Yes [id number] 25mg Take 1 [facility] 25 mg 7-25 tablet by ity of tablet 00:00: mouth in [place] 00 the Medical morning Branch and 1 tablet in the evening. Take with meals. TAKE ONE (1) TABLET(S) BY MOUTH TWICE A DAY WITH FOOD. nicotine 14 Yes [id number] 1{patch Apply 1 [facility] mg/24 hr 7-25 } Patch to ity of patch 00:00: area(s) [place] 00 every 24 Medical ([facility] Branch ur) hours. Apply 21mg patch daily x 6 weeks; then apply 14mf patch daily x 2 weeks; then apply 7mg patch daily x 2 weeks. Stop smoking on initiation of therapy nicotine 21 Yes [id number] 1{patch Apply 1 [facility] mg/24 hr 7-25 } Patch to ity of patch 00:00: area(s) in [place] 00 the Medical morning. Branch Apply 21mg patch daily x 6 weeks; then apply 14mg patch daily x 2 weeks; then apply 7mg patch daily x 2 weeks. Stop smoking on initiation of therapy nicotine 7 Yes [id number] 1{patch Apply 1 [facility] mg/24 hr 7-25 } Patch to ity of patch 00:00: area(s) [place] 00 every 24 Medical ([facility] Branch ur) hours. Apply 21mg patch daily x 6 weeks; then apply 14mg patch daily x 2 weeks; then apply 7mg patch daily x 2 weeks. Stop smoking on initiation of therapy glipiZIDE Yes [id number] TAKE ONE [facility] 10 mg 7-25 (1) ity of tablet 00:00: TABLET(S) [place] 00 BY MOUTH Medical ONCE A DAY Branch BEFORE MEALS. atorvastati Yes [id number] 40mg Take 1 [facility] n 40 mg 7-25 tablet by ity of tablet 00:00: mouth at [place] 00 bedtime. Medical Branch lipase-prot Yes [id number] 1{capsu Take 1 [facility] ease-amylas 7-25 le} capsule by it y of e 00:00: mouth in [place] 12,000-38,0 00 the Medical 00 -60,000 morning Branch unit and 1 capsule capsule at noon and 1 capsule in the evening. Take with meals. terazosin 5 Yes [id number] 5mg Take 1 [facility] mg capsule 7-25 capsule by ity of 00:00: mouth [place] 00 every Medical evening. Branch triamterene Yes [id number] 1{tbl} Take 1 [facility] -hydrochlor 7-25 tablet by ity of othiazid 00:00: mouth in [place] 37.5-25 mg 00 the Medical tablet morning. Branch amLODIPine- Yes [id number] 1{capsu Take 1 [facility] benazepriL 7-25 le} capsule by ity of 10-40 mg 00:00: mouth in [place] per capsule 00 the morning. Branch aspirin 325 Yes [id number] 325mg Take 1 [facility] mg tablet 7-25 tablet by ity o f 00:00: mouth [place] 00 daily with Medical breakfast. Branch carvediloL Yes [id number] 25mg Take 1 [facility] 25 mg 7-25 tablet by ity of tablet 00:00: mouth in [place] 00 the Medical morning Branch and 1 tablet in the evening. Take with meals. TAKE ONE (1) TABLET(S) BY MOUTH TWICE A DAY WITH FOOD. nicotine 14 Yes [id number] 1{patch Apply 1 [facility] mg/24 hr 7-25 } Patch to ity of patch 00:00: area(s) [place] 00 every 24 Medical (twenty- Branch ur) hours. Apply 21mg patch daily x 6 weeks; then apply 14mf patch daily x 2 weeks; then apply 7mg patch daily x 2 weeks. Stop smoking on initiation of therapy nicotine 21 Yes [id number] 1{patch Apply 1 [facility] mg/24 hr 7-25 } Patch to ity of patch 00:00: area(s) in [place] 00 the morning. Branch Apply 21mg patch daily x 6 weeks; then apply 14mg patch daily x 2 weeks; then apply 7mg patch daily x 2 weeks. Stop smoking on initiation of therapy nicotine 7 Yes [id number] 1{patch Apply 1 [facility] mg/24 hr 7-25 } Patch to ity of patch 00:00: area(s) [place] 00 every 24 Medical ([facility]- Branch ur) hours. Apply 21mg patch daily x 6 weeks; then apply 14mg patch daily x 2 weeks; then apply 7mg patch daily x 2 weeks. Stop smoking on initiation of therapy glipiZIDE Yes [id number] TAKE ONE [facility] 10 mg 7-25 (1) ity of tablet 00:00: TABLET(S) [place] 00 BY MOUTH Medical ONCE A DAY Branch BEFORE MEALS. atorvastati Yes [id number] 40mg Take 1 [facility] n 40 mg 7-25 tablet by ity of tablet 00:00: mouth at [place] 00 bedtime. Medical Branch lipase-prot Yes [id number] 1{capsu Take 1 [facility] ease-amylas 7-25 le} capsule by it y of e 00:00: mouth in [place] 12,000-38,0 00 the Medical 00 -60,000 morning Branch unit and 1 capsule capsule at noon and 1 capsule in the evening. Take with meals. terazosin 5 Yes [id number] 5mg Take 1 [facility] mg capsule 7-25 capsule by ity of 00:00: mouth [place] 00 every Medical evening. Branch triamterene Yes [id number] 1{tbl} Take 1 [facility] -hydrochlor 7-25 tablet by ity of othiazid 00:00: mouth in [place] 37.5-25 mg 00 the Medical tablet morning. Branch amLODIPine- Yes [id number] 1{capsu Take 1 [facility] benazepriL 7-25 le} capsule by ity of 10-40 mg 00:00: mouth in [place] per capsule 00 the Medical morning. Branch aspirin 325 Yes [id number] 325mg Take 1 [facility] mg tablet 7-25 tablet by ity o f 00:00: mouth [place] 00 daily with Medical breakfast. Branch carvediloL Yes [id number] 25mg Take 1 [facility] 25 mg 7-25 tablet by ity of tablet 00:00: mouth in [place] 00 the Medical morning Branch and 1 tablet in the evening. Take with meals. TAKE ONE (1) TABLET(S) BY MOUTH TWICE A DAY WITH FOOD. nicotine 14 Yes [id number] 1{patch Apply 1 [facility] mg/24 hr 7-25 } Patch to ity of patch 00:00: area(s) [place] 00 every 24 Medical ([facility] Branch ur) hours. Apply 21mg patch daily x 6 weeks; then apply 14mf patch daily x 2 weeks; then apply 7mg patch daily x 2 weeks. Stop smoking on initiation of therapy nicotine 21 2021- Yes [id number] 1{patch Apply 1 [facility] mg/24 hr 7-25 } Patch to ity of patch 00:00: area(s) in [place] 00 the Medical morning. Branch Apply 21mg patch daily x 6 weeks; then apply 14mg patch daily x 2 weeks; then apply 7mg patch daily x 2 weeks. Stop smoking on initiation of therapy nicotine 7 Yes [id number] 1{patch Apply 1 [facility] mg/24 hr 7-25 } Patch to ity of patch 00:00: area(s) [place] 00 every 24 Medical ([facility] Branch ur) hours. Apply 21mg patch daily x 6 weeks; then apply 14mg patch daily x 2 weeks; then apply 7mg patch daily x 2 weeks. Stop smoking on initiation of therapy glipiZIDE Yes [id number] TAKE ONE [facility] 10 mg 7-25 (1) ity of tablet 00:00: TABLET(S) [place] 00 BY MOUTH Medical ONCE A DAY Branch BEFORE MEALS. atorvastati Yes [id number] 40mg Take 1 [facility] n 40 mg 7-25 tablet by ity of tablet 00:00: mouth at [place] 00 bedtime. Medical Branch lipase-prot Yes [id number] 1{capsu Take 1 [facility] ease-amylas 7-25 le} capsule by it y of e 00:00: mouth in [place] 12,000-38,0 00 the Medical 00 -60,000 morning Branch unit and 1 capsule capsule at noon and 1 capsule in the evening. Take with meals. terazosin 5 Yes [id number] 5mg Take 1 [facility] mg capsule 7-25 capsule by ity of 00:00: mouth [place] 00 every Medical evening. Branch triamterene Yes [id number] 1{tbl} Take 1 [facility] -hydrochlor 7-25 tablet by ity of othiazid 00:00: mouth in [place] 37.5-25 mg 00 the Medical tablet morning. Branch amLODIPine- Yes [id number] 1{capsu Take 1 [facility] benazepriL 7-25 le} capsule by ity of 10-40 mg 00:00: mouth in [place] per capsule 00 the Medical morning. Branch aspirin 325 Yes [id number] 325mg Take 1 [facility] mg tablet 7-25 tablet by ity o f 00:00: mouth [place] 00 daily with Medical breakfast. Branch carvediloL Yes [id number] 25mg Take 1 [facility] 25 mg 7-25 tablet by ity of tablet 00:00: mouth in [place] 00 the Medical morning Branch and 1 tablet in the evening. Take with meals. TAKE ONE (1) TABLET(S) BY MOUTH TWICE A DAY WITH FOOD. nicotine 14 Yes [id number] 1{patch Apply 1 [facility] mg/24 hr 7-25 } Patch to ity of patch 00:00: area(s) [place] 00 every 24 Medical (tw[facility] Branch ur) hours. Apply 21mg patch daily x 6 weeks; then apply 14mf patch daily x 2 weeks; then apply 7mg patch daily x 2 weeks. Stop smoking on initiation of therapy nicotine 21 Yes [id number] 1{patch Apply 1 [facility] mg/24 hr 7-25 } Patch to ity of patch 00:00: area(s) in [place] 00 the Medical morning. Branch Apply 21mg patch daily x 6 weeks; then apply 14mg patch daily x 2 weeks; then apply 7mg patch daily x 2 weeks. Stop smoking on initiation of therapy nicotine 7 Yes [id number] 1{patch Apply 1 [facility] mg/24 hr 7-25 } Patch to ity of patch 00:00: area(s) [place] 00 every 24 Medical (twenty[facility] Branch ur) hours. Apply 21mg patch daily x 6 weeks; then apply 14mg patch daily x 2 weeks; then apply 7mg patch daily x 2 weeks. Stop smoking on initiation of therapy glipiZIDE Yes [id number] TAKE ONE [facility] 10 mg 7-25 (1) ity of tablet 00:00: TABLET(S) [place] 00 BY MOUTH Medical ONCE A DAY Branch BEFORE MEALS. atorvastati Yes [id number] 40mg Take 1 [facility] n 40 mg 7-25 tablet by ity of tablet 00:00: mouth at [place] 00 bedtime. Medical Branch lipase-prot Yes [id number] 1{capsu Take 1 [facility] ease-amylas 7-25 le} capsule by it y of e 00:00: mouth in [place] 12,000-38,0 00 the [facility] 00 -60,000 morning Branch unit and 1 capsule capsule at noon and 1 capsule in the evening. Take with meals. terazosin 5 Yes [id number] 5mg Take 1 [facility] mg capsule 7-25 capsule by ity of 00:00: mouth [place] 00 every Medical evening. Branch triamterene Yes [id number] 1{tbl} Take 1 [facility] -hydrochlor 7-25 tablet by ity of othiazid 00:00: mouth in [place] 37.5-25 mg 00 the Medical tablet morning. Branch amLODIPine- Yes [id number] 1{capsu Take 1 [facility] benazepriL 7-25 le} capsule by ity of 10-40 mg 00:00: mouth in [place] per capsule 00 the Medical morning. Branch aspirin 325 Yes [id number] 325mg Take 1 [facility] mg tablet 7-25 tablet by ity o f 00:00: mouth [place] 00 daily with Medical breakfast. Branch carvediloL Yes [id number] 25mg Take 1 [facility] 25 mg 7-25 tablet by ity of tablet 00:00: mouth in [place] 00 the Medical morning Branch and 1 tablet in the evening. Take with meals. TAKE ONE (1) TABLET(S) BY MOUTH TWICE A DAY WITH FOOD. nicotine 14 Yes [id number] 1{patch Apply 1 [facility] mg/24 hr 7-25 } Patch to ity of patch 00:00: area(s) [place] 00 every 24 Medical ([facility] ur) hours. Apply 21mg patch daily x 6 weeks; then apply 14mf patch daily x 2 weeks; then apply 7mg patch daily x 2 weeks. Stop smoking on initiation of therapy nicotine 21 Yes [id number] 1{patch Apply 1 [facility] mg/24 hr 7-25 } Patch to ity of patch 00:00: area(s) in [place] 00 the Medical morning. Branch Apply 21mg patch daily x 6 weeks; then apply 14mg patch daily x 2 weeks; then apply 7mg patch daily x 2 weeks. Stop smoking on initiation of therapy nicotine 7 Yes [id number] 1{patch Apply 1 [facility] mg/24 hr 7-25 } Patch to ity of patch 00:00: area(s) [place] 00 every 24 Medical ([facility] ur) hours. Apply 21mg patch daily x 6 weeks; then apply 14mg patch daily x 2 weeks; then apply 7mg patch daily x 2 weeks. Stop smoking on initiation of therapy glipiZIDE Yes [id number] TAKE ONE [facility] 10 mg 7-25 (1) ity of tablet 00:00: TABLET(S) [place] 00 BY MOUTH Medical ONCE A DAY Branch BEFORE MEALS. atorvastati Yes [id number] 40mg Take 1 [facility] n 40 mg 7-25 tablet by ity of tablet 00:00: mouth at [place] 00 bedtime. Medical Branch lipase-prot Yes [id number] 1{capsu Take 1 [facility] ease-amylas 7-25 le} capsule by it y of e 00:00: mouth in [place] 12,000-38,0 00 the Medical 00 -60,000 morning Branch unit and 1 capsule capsule at noon and 1 capsule in the evening. Take with meals. terazosin 5 Yes [id number] 5mg Take 1 [facility] mg capsule 7-25 capsule by ity of 00:00: mouth [place] 00 every Medical evening. Branch triamterene Yes [id number] 1{tbl} Take 1 [facility] -hydrochlor 7-25 tablet by ity of othiazid 00:00: mouth in [place] 37.5-25 mg 00 the Medical tablet morning. Branch amLODIPine- Yes [id number] 1{capsu Take 1 [facility] benazepriL 7-25 le} capsule by ity of 10-40 mg 00:00: mouth in [place] per capsule 00 the Medical morning. Branch aspirin 325 Yes [id number] 325mg Take 1 [facility] mg tablet 7-25 tablet by ity o f 00:00: mouth [place] 00 daily with Medical breakfast. Branch carvediloL Yes [id number] 25mg Take 1 [facility] 25 mg 7-25 tablet by ity of tablet 00:00: mouth in [place] 00 the Medical morning Branch and 1 tablet in the evening. Take with meals. TAKE ONE (1) TABLET(S) BY MOUTH TWICE A DAY WITH FOOD. nicotine 14 Yes [id number] 1{patch Apply 1 [facility] mg/24 hr 7-25 } Patch to ity of patch 00:00: area(s) [place] 00 every 24 Medical (tw[facility] Branch ur) hours. Apply 21mg patch daily x 6 weeks; then apply 14mf patch daily x 2 weeks; then apply 7mg patch daily x 2 weeks. Stop smoking on initiation of therapy nicotine 21 2021- Yes [id number] 1{patch Apply 1 [facility] mg/24 hr 7-25 } Patch to ity of patch 00:00: area(s) in [place] 00 the Medical morning. Branch Apply 21mg patch daily x 6 weeks; then apply 14mg patch daily x 2 weeks; then apply 7mg patch daily x 2 weeks. Stop smoking on initiation of therapy nicotine 7 0 Yes [id number] 1{patch Apply 1 [facility] mg/24 hr 7-25 } Patch to ity of patch 00:00: area(s) [place] 00 every 24 Medical (tw[facility] Branch ur) hours. Apply 21mg patch daily x 6 weeks; then apply 14mg patch daily x 2 weeks; then apply 7mg patch daily x 2 weeks. Stop smoking on initiation of therapy glipiZIDE Yes [id number] TAKE ONE [facility] 10 mg 7-25 (1) ity of tablet 00:00: TABLET(S) [place] 00 BY MOUTH Medical ONCE A DAY Branch BEFORE MEALS. atorvastati Yes [id number] 40mg Take 1 [facility] n 40 mg 7-25 tablet by ity of tablet 00:00: mouth at [place] 00 bedtime. Medical Branch lipase-prot Yes [id number] 1{capsu Take 1 [facility] ease-amylas 7-25 le} capsule by it y of e 00:00: mouth in [place] 12,000-38,0 00 the Medical 00 -60,000 morning Branch unit and 1 capsule capsule at noon and 1 capsule in the evening. Take with meals. terazosin 5 Yes [id number] 5mg Take 1 [facility] mg capsule 7-25 capsule by ity of 00:00: mouth [place] 00 every Medical evening. Branch triamterene Yes [id number] 1{tbl} Take 1 [facility] -hydrochlor 7-25 tablet by ity of othiazid 00:00: mouth in [place] 37.5-25 mg 00 the Medical tablet morning. Branch amLODIPine- Yes [id number] 1{capsu Take 1 [facility] benazepriL 7-25 le} capsule by ity of 10-40 mg 00:00: mouth in [place] per capsule 00 the Medical morning. Branch aspirin 325 Yes [id number] 325mg Take 1 [facility] mg tablet 7-25 tablet by ity o f 00:00: mouth [place] 00 daily with Medical breakfast. Branch carvediloL Yes [id number] 25mg Take 1 [facility] 25 mg 7-25 tablet by ity of tablet 00:00: mouth in [place] 00 the Medical morning Branch and 1 tablet in the evening. Take with meals. TAKE ONE (1) TABLET(S) BY MOUTH TWICE A DAY WITH FOOD. nicotine 14 Yes [id number] 1{patch Apply 1 [facility] mg/24 hr 7-25 } Patch to ity of patch 00:00: area(s) [place] 00 every 24 Medical ([facility] ur) hours. Apply 21mg patch daily x 6 weeks; then apply 14mf patch daily x 2 weeks; then apply 7mg patch daily x 2 weeks. Stop smoking on initiation of therapy nicotine 21 Yes [id number] 1{patch Apply 1 [facility] mg/24 hr 7-25 } Patch to ity of patch 00:00: area(s) in [place] 00 the Medical morning. Branch Apply 21mg patch daily x 6 weeks; then apply 14mg patch daily x 2 weeks; then apply 7mg patch daily x 2 weeks. Stop smoking on initiation of therapy nicotine 7 Yes [id number] 1{patch Apply 1 [facility] mg/24 hr 7-25 } Patch to ity of patch 00:00: area(s) [place] 00 every 24 Medical ([facility] ur) hours. Apply 21mg patch daily x 6 weeks; then apply 14mg patch daily x 2 weeks; then apply 7mg patch daily x 2 weeks. Stop smoking on initiation of therapy glipiZIDE Yes [id number] TAKE ONE [facility] 10 mg 7-25 (1) ity of tablet 00:00: TABLET(S) [place] 00 BY MOUTH Medical ONCE A DAY Branch BEFORE MEALS. atorvastati Yes [id number] 40mg Take 1 [facility] n 40 mg 7-25 tablet by ity of tablet 00:00: mouth at [place] 00 bedtime. Medical Branch lipase-prot Yes [id number] 1{capsu Take 1 [facility] ease-amylas 7-25 le} capsule by it y of e 00:00: mouth in [place] 12,000-38,0 00 the [facility] 00 -60,000 morning Branch unit and 1 capsule capsule at noon and 1 capsule in the evening. Take with meals. terazosin 5 Yes [id number] 5mg Take 1 [facility] mg capsule 7-25 capsule by ity of 00:00: mouth [place] 00 every Medical evening. Branch triamterene Yes [id number] 1{tbl} Take 1 [facility] -hydrochlor 7-25 tablet by ity of othiazid 00:00: mouth in [place] 37.5-25 mg 00 the Medical tablet morning. Branch amLODIPine- Yes [id number] 1{capsu Take 1 [facility] benazepriL 7-25 le} capsule by ity of 10-40 mg 00:00: mouth in [place] per capsule 00 the Medical morning. Branch aspirin 325 Yes [id number] 325mg Take 1 [facility] mg tablet 7-25 tablet by ity o f 00:00: mouth [place] 00 daily with Medical breakfast. Branch carvediloL Yes [id number] 25mg Take 1 [facility] 25 mg 7-25 tablet by ity of tablet 00:00: mouth in [place] 00 the Medical morning Branch and 1 tablet in the evening. Take with meals. TAKE ONE (1) TABLET(S) BY MOUTH TWICE A DAY WITH FOOD. nicotine 14 Yes [id number] 1{patch Apply 1 [facility] mg/24 hr 7-25 } Patch to ity of patch 00:00: area(s) [place] 00 every 24 Medical ([facility]) hours. Apply 21mg patch daily x 6 weeks; then apply 14mf patch daily x 2 weeks; then apply 7mg patch daily x 2 weeks. Stop smoking on initiation of therapy nicotine 21 2021- Yes [id number] 1{patch Apply 1 [facility] mg/24 hr 7-25 } Patch to ity of patch 00:00: area(s) in [place] 00 the Medical morning. Branch Apply 21mg patch daily x 6 weeks; then apply 14mg patch daily x 2 weeks; then apply 7mg patch daily x 2 weeks. Stop smoking on initiation of therapy nicotine 7 Yes [id number] 1{patch Apply 1 [facility] mg/24 hr 7-25 } Patch to ity of patch 00:00: area(s) [place] 00 every 24 Medical ([facility]) hours. Apply 21mg patch daily x 6 weeks; then apply 14mg patch daily x 2 weeks; then apply 7mg patch daily x 2 weeks. Stop smoking on initiation of therapy glipiZIDE Yes [id number] TAKE ONE [facility] 10 mg 7-25 (1) ity of tablet 00:00: TABLET(S) [place] 00 BY MOUTH Medical ONCE A DAY Branch BEFORE MEALS. atorvastati Yes [id number] 40mg Take 1 [facility] n 40 mg 7-25 tablet by ity of tablet 00:00: mouth at [place] 00 bedtime. Medical Branch lipase-prot Yes [id number] 1{capsu Take 1 [facility] ease-amylas 7-25 le} capsule by it y of e 00:00: mouth in [place] 12,000-38,0 00 the Medical 00 -60,000 morning Branch unit and 1 capsule capsule at noon and 1 capsule in the evening. Take with meals. terazosin 5 Yes [id number] 5mg Take 1 [facility] mg capsule 7-25 capsule by ity of 00:00: mouth [place] 00 every Medical evening. Branch triamterene Yes [id number] 1{tbl} Take 1 [facility] -hydrochlor 7-25 tablet by ity of othiazid 00:00: mouth in [place] 37.5-25 mg 00 the Medical tablet morning. Branch amLODIPine- Yes [id number] 1{capsu Take 1 [facility] benazepriL 7-25 le} capsule by ity of 10-40 mg 00:00: mouth in [place] per capsule 00 the Medical morning. Branch aspirin 325 Yes [id number] 325mg Take 1 [facility] mg tablet 7-25 tablet by ity o f 00:00: mouth [place] 00 daily with Medical breakfast. Branch carvediloL Yes [id number] 25mg Take 1 [facility] 25 mg 7-25 tablet by ity of tablet 00:00: mouth in [place] 00 the Medical morning Branch and 1 tablet in the evening. Take with meals. TAKE ONE (1) TABLET(S) BY MOUTH TWICE A DAY WITH FOOD. nicotine 14 Yes [id number] 1{patch Apply 1 [facility] mg/24 hr 7-25 } Patch to ity of patch 00:00: area(s) [place] 00 every 24 Medical ([facility] Branch ur) hours. Apply 21mg patch daily x 6 weeks; then apply 14mf patch daily x 2 weeks; then apply 7mg patch daily x 2 weeks. Stop smoking on initiation of therapy nicotine 21 Yes [id number] 1{patch Apply 1 [facility] mg/24 hr 7-25 } Patch to ity of patch 00:00: area(s) in [place] 00 the Medical morning. Branch Apply 21mg patch daily x 6 weeks; then apply 14mg patch daily x 2 weeks; then apply 7mg patch daily x 2 weeks. Stop smoking on initiation of therapy nicotine 7 Yes [id number] 1{patch Apply 1 [facility] mg/24 hr 7-25 } Patch to ity of patch 00:00: area(s) [place] 00 every 24 Medical ([facility] Branch ur) hours. Apply 21mg patch daily x 6 weeks; then apply 14mg patch daily x 2 weeks; then apply 7mg patch daily x 2 weeks. Stop smoking on initiation of therapy glipiZIDE Yes [id number] TAKE ONE [facility] 10 mg 7-25 (1) ity of tablet 00:00: TABLET(S) [place] 00 BY MOUTH Medical ONCE A DAY Branch BEFORE MEALS. lipase-prot Yes [id number] 1{capsu Take 1 [facility] ease-amylas 7-25 le} capsule by it y of e 00:00: mouth in [place] 12,000-38,0 00 the [facility] 00 -60,000 morning Branch unit and 1 capsule capsule at noon and 1 capsule in the evening. Take with meals. aspirin 325 Yes [id number] 325mg Take 1 [facility] mg tablet 7-25 tablet by ity o f 00:00: mouth [place] 00 daily with Medical breakfast. Branch nicotine 14 Yes [id number] 1{patch Apply 1 [facility] mg/24 hr 7-25 } Patch to ity of patch 00:00: area(s) [place] 00 every 24 Medical ([facility] Branch ur) hours. Apply 21mg patch daily x 6 weeks; then apply 14mf patch daily x 2 weeks; then apply 7mg patch daily x 2 weeks. Stop smoking on initiation of therapy nicotine 21 Yes [id number] 1{patch Apply 1 [facility] mg/24 hr 7-25 } Patch to ity of patch 00:00: area(s) in [place] 00 the Medical morning. Branch Apply 21mg patch daily x 6 weeks; then apply 14mg patch daily x 2 weeks; then apply 7mg patch daily x 2 weeks. Stop smoking on initiation of therapy nicotine 7 Yes [id number] 1{patch Apply 1 [facility] mg/24 hr 7-25 } Patch to ity of patch 00:00: area(s) [place] 00 every 24 Medical ([facility] Branch ur) hours. Apply 21mg patch daily x 6 weeks; then apply 14mg patch daily x 2 weeks; then apply 7mg patch daily x 2 weeks. Stop smoking on initiation of therapy glipiZIDE Yes [id number] TAKE ONE [facility] 10 mg 7-25 (1) ity of tablet 00:00: TABLET(S) [place] 00 BY MOUTH Medical ONCE A DAY Branch BEFORE MEALS. lipase-prot Yes [id number] 1{capsu Take 1 [facility] ease-amylas 7-25 le} capsule by it y of e 00:00: mouth in [place] 12,000-38,0 00 the Medical 00 -60,000 morning Branch unit and 1 capsule capsule at noon and 1 capsule in the evening. Take with meals. aspirin 325 Yes [id number] 325mg Take 1 [facility] mg tablet 7-25 tablet by ity o f 00:00: mouth [place] 00 daily with Medical breakfast. Branch nicotine Yes [id number] 1{patch Apply 1 [facility] mg/24 hr 7-25 } Patch to ity of patch 00:00: area(s) [place] 00 every 24 Medical ([facility] Branch ur) hours. Apply 21mg patch daily x 6 weeks; then apply 14mf patch daily x 2 weeks; then apply 7mg patch daily x 2 weeks. Stop smoking on initiation of therapy nicotine Yes [id number] 1{patch Apply 1 [facility] mg/24 hr 7-25 } Patch to ity of patch 00:00: area(s) in [place] 00 the Medical morning. Branch Apply 21mg patch daily x 6 weeks; then apply 14mg patch daily x 2 weeks; then apply 7mg patch daily x 2 weeks. Stop smoking on initiation of therapy nicotine 7 Yes [id number] 1{patch Apply 1 [facility] mg/24 hr 7-25 } Patch to ity of patch 00:00: area(s) [place] 00 every 24 Medical ([facility] Branch ur) hours. Apply 21mg patch daily x 6 weeks; then apply 14mg patch daily x 2 weeks; then apply 7mg patch daily x 2 weeks. Stop smoking on initiation of therapy glipiZIDE Yes [id number] TAKE ONE [facility] 10 mg 7-25 (1) ity of tablet 00:00: TABLET(S) [place] 00 BY MOUTH Medical ONCE A DAY Branch BEFORE MEALS. lipase-prot Yes [id number] 1{capsu Take 1 [facility] ease-amylas 7-25 le} capsule by it y of e 00:00: mouth in [place] 12,000-38,0 00 the [facility] 00 -60,000 morning Branch unit and 1 capsule capsule at noon and 1 capsule in the evening. Take with meals. aspirin 325 Yes [id number] 325mg Take 1 [facility] mg tablet 7-25 tablet by ity o f 00:00: mouth [place] 00 daily with Medical breakfast. Branch nicotine 14 Yes [id number] 1{patch Apply 1 [facility] mg/24 hr 7-25 } Patch to ity of patch 00:00: area(s) [place] 00 every 24 Medical ([facility]) hours. Apply 21mg patch daily x 6 weeks; then apply 14mf patch daily x 2 weeks; then apply 7mg patch daily x 2 weeks. Stop smoking on initiation of therapy nicotine 21 Yes [id number] 1{patch Apply 1 [facility] mg/24 hr 7-25 } Patch to ity of patch 00:00: area(s) in [place] 00 the Medical morning. Branch Apply 21mg patch daily x 6 weeks; then apply 14mg patch daily x 2 weeks; then apply 7mg patch daily x 2 weeks. Stop smoking on initiation of therapy nicotine 7 Yes [id number] 1{patch Apply 1 [facility] mg/24 hr 7-25 } Patch to ity of patch 00:00: area(s) [place] 00 every 24 Medical ([facility] ur) hours. Apply 21mg patch daily x 6 weeks; then apply 14mg patch daily x 2 weeks; then apply 7mg patch daily x 2 weeks. Stop smoking on initiation of therapy glipiZIDE Yes [id number] TAKE ONE [facility] 10 mg 7-25 (1) ity of tablet 00:00: TABLET(S) [place] 00 BY MOUTH Medical ONCE A DAY Branch BEFORE MEALS. lipase-prot Yes [id number] 1{capsu Take 1 [facility] ease-amylas 7-25 le} capsule by it y of e 00:00: mouth in [place] -,0 00 the Medical morning Branch unit and 1 capsule capsule at noon and 1 capsule in the evening. Take with meals. aspirin 325 Yes [id number] 325mg Take 1 [facility] mg tablet 7-25 tablet by ity o f 00:00: mouth [place] 00 daily with Medical breakfast. Branch nicotine 14 Yes [id number] 1{patch Apply 1 [facility] mg/24 hr 7-25 } Patch to ity of patch 00:00: area(s) [place] 00 every 24 Medical ([facility] Branch ur) hours. Apply 21mg patch daily x 6 weeks; then apply 14mf patch daily x 2 weeks; then apply 7mg patch daily x 2 weeks. Stop smoking on initiation of therapy nicotine 21 Yes [id number] 1{patch Apply 1 [facility] mg/24 hr 7-25 } Patch to ity of patch 00:00: area(s) in [place] 00 the Medical morning. Branch Apply 21mg patch daily x 6 weeks; then apply 14mg patch daily x 2 weeks; then apply 7mg patch daily x 2 weeks. Stop smoking on initiation of therapy nicotine 7 Yes [id number] 1{patch Apply 1 [facility] mg/24 hr 7-25 } Patch to ity of patch 00:00: area(s) [place] 00 every 24 Medical ([facility] Branch ur) hours. Apply 21mg patch daily x 6 weeks; then apply 14mg patch daily x 2 weeks; then apply 7mg patch daily x 2 weeks. Stop smoking on initiation of therapy glipiZIDE Yes [id number] TAKE ONE [facility] 10 mg 7-25 (1) ity of tablet 00:00: TABLET(S) [place] 00 BY MOUTH Medical ONCE A DAY Branch BEFORE MEALS. lipase-prot Yes [id number] 1{capsu Take 1 [facility] ease-amylas 7-25 le} capsule by it y of e 00:00: mouth in [place] -,0 00 the Medical morning Branch unit and 1 capsule capsule at noon and 1 capsule in the evening. Take with meals. aspirin 325 Yes [id number] 325mg Take 1 [facility] mg tablet 7-25 tablet by ity o f 00:00: mouth [place] 00 daily with Medical breakfast. Branch nicotine Yes [id number] 1{patch Apply 1 [facility] mg/24 hr 7-25 } Patch to ity of patch 00:00: area(s) [place] 00 every 24 Medical ([facility] Branch ur) hours. Apply 21mg patch daily x 6 weeks; then apply 14mf patch daily x 2 weeks; then apply 7mg patch daily x 2 weeks. Stop smoking on initiation of therapy nicotine 21 Yes [id number] 1{patch Apply 1 [facility] mg/24 hr 7-25 } Patch to ity of patch 00:00: area(s) in [place] 00 the Medical morning. Branch Apply 21mg patch daily x 6 weeks; then apply 14mg patch daily x 2 weeks; then apply 7mg patch daily x 2 weeks. Stop smoking on initiation of therapy nicotine 7 Yes [id number] 1{patch Apply 1 [facility] mg/24 hr 7-25 } Patch to ity of patch 00:00: area(s) [place] 00 every 24 Medical ([facility] Branch ur) hours. Apply 21mg patch daily x 6 weeks; then apply 14mg patch daily x 2 weeks; then apply 7mg patch daily x 2 weeks. Stop smoking on initiation of therapy glipiZIDE Yes [id number] TAKE ONE [facility] 10 mg 7-25 (1) ity of tablet 00:00: TABLET(S) [place] 00 BY MOUTH Medical ONCE A DAY Branch BEFORE MEALS. lipase-prot Yes [id number] 1{capsu Take 1 [facility] ease-amylas 7-25 le} capsule by it y of e 00:00: mouth in [place] 12,000-38,0 00 the Medical 00 -60,000 morning Branch unit and 1 capsule capsule at noon and 1 capsule in the evening. Take with meals. aspirin 325 Yes [id number] 325mg Take 1 [facility] mg tablet 7-25 tablet by ity o f 00:00: mouth [place] 00 daily with Medical breakfast. Branch nicotine 14 Yes [id number] 1{patch Apply 1 [facility] mg/24 hr 7-25 } Patch to ity of patch 00:00: area(s) [place] 00 every 24 Medical (twenty- Branch ur) hours. Apply 21mg patch daily x 6 weeks; then apply 14mf patch daily x 2 weeks; then apply 7mg patch daily x 2 weeks. Stop smoking on initiation of therapy nicotine Yes [id number] 1{patch Apply 1 [facility] mg/24 hr 7-25 } Patch to ity of patch 00:00: area(s) in [place] 00 the Medical morning. Branch Apply 21mg patch daily x 6 weeks; then apply 14mg patch daily x 2 weeks; then apply 7mg patch daily x 2 weeks. Stop smoking on initiation of therapy nicotine 7 Yes [id number] 1{patch Apply 1 [facility] mg/24 hr 7-25 } Patch to ity of patch 00:00: area(s) [place] 00 every 24 Medical ([facility] Branch ur) hours. Apply 21mg patch daily x 6 weeks; then apply 14mg patch daily x 2 weeks; then apply 7mg patch daily x 2 weeks. Stop smoking on initiation of therapy glipiZIDE Yes [id number] TAKE ONE [facility] 10 mg 7-25 (1) ity of tablet 00:00: TABLET(S) [place] 00 BY MOUTH Medical ONCE A DAY Branch BEFORE MEALS. lipase-prot Yes [id number] 1{capsu Take 1 [facility] ease-amylas 7-25 le} capsule by it y of e 00:00: mouth in [place] 12,000-38,0 00 the [facility] 00 -60,000 morning Branch unit and 1 capsule capsule at noon and 1 capsule in the evening. Take with meals. aspirin 325 Yes [id number] 325mg Take 1 [facility] mg tablet 7-25 tablet by ity o f 00:00: mouth [place] 00 daily with Medical breakfast. Branch nicotine 14 Yes [id number] 1{patch Apply 1 [facility] mg/24 hr 7-25 } Patch to ity of patch 00:00: area(s) [place] 00 every 24 Medical (twenty- Branch ur) hours. Apply 21mg patch daily x 6 weeks; then apply 14mf patch daily x 2 weeks; then apply 7mg patch daily x 2 weeks. Stop smoking on initiation of therapy nicotine 21 Yes [id number] 1{patch Apply 1 [facility] mg/24 hr 7-25 } Patch to ity of patch 00:00: area(s) in [place] 00 the Medical morning. Branch Apply 21mg patch daily x 6 weeks; then apply 14mg patch daily x 2 weeks; then apply 7mg patch daily x 2 weeks. Stop smoking on initiation of therapy nicotine 7 Yes [id number] 1{patch Apply 1 [facility] mg/24 hr 7-25 } Patch to ity of patch 00:00: area(s) [place] 00 every 24 Medical (twenty-[facility] Branch ur) hours. Apply 21mg patch daily x 6 weeks; then apply 14mg patch daily x 2 weeks; then apply 7mg patch daily x 2 weeks. Stop smoking on initiation of therapy glipiZIDE Yes [id number] TAKE ONE [facility] 10 mg 7-25 (1) ity of tablet 00:00: TABLET(S) [place] 00 BY MOUTH Medical ONCE A DAY Branch BEFORE MEALS. lipase-prot Yes [id number] 1{capsu Take 1 [facility] ease-amylas 7-25 le} capsule by it y of e 00:00: mouth in [place] 12,000-38,0 00 the [facility] 00 -60,000 morning Branch unit and 1 capsule capsule at noon and 1 capsule in the evening. Take with meals. aspirin 325 Yes [id number] 325mg Take 1 [facility] mg tablet 7-25 tablet by ity o f 00:00: mouth [place] 00 daily with Medical breakfast. Branch nicotine Yes [id number] 1{patch Apply 1 [facility] mg/24 hr 7-25 } Patch to ity of patch 00:00: area(s) [place] 00 every 24 Medical (twenty-[facility] Branch ur) hours. Apply 21mg patch daily x 6 weeks; then apply 14mf patch daily x 2 weeks; then apply 7mg patch daily x 2 weeks. Stop smoking on initiation of therapy nicotine Yes [id number] 1{patch Apply 1 [facility] mg/24 hr 7-25 } Patch to ity of patch 00:00: area(s) in [place] 00 the Medical morning. Branch Apply 21mg patch daily x 6 weeks; then apply 14mg patch daily x 2 weeks; then apply 7mg patch daily x 2 weeks. Stop smoking on initiation of therapy nicotine 7 Yes [id number] 1{patch Apply 1 [facility] mg/24 hr 7-25 } Patch to ity of patch 00:00: area(s) [place] 00 every 24 Medical ([facility] Branch ur) hours. Apply 21mg patch daily x 6 weeks; then apply 14mg patch daily x 2 weeks; then apply 7mg patch daily x 2 weeks. Stop smoking on initiation of therapy glipiZIDE Yes [id number] TAKE ONE [facility] 10 mg 7-25 (1) ity of tablet 00:00: TABLET(S) [place] 00 BY MOUTH Medical ONCE A DAY Branch BEFORE MEALS. lipase-prot Yes [id number] 1{capsu Take 1 [facility] ease-amylas 7-25 le} capsule by it y of e 00:00: mouth in [place] 12,000-38,0 00 the [facility] 00 -60,000 morning Branch unit and 1 capsule capsule at noon and 1 capsule in the evening. Take with meals. aspirin 325 Yes [id number] 325mg Take 1 [facility] mg tablet 7-25 tablet by ity o f 00:00: mouth [place] 00 daily with Medical breakfast. Branch nicotine 14 Yes [id number] 1{patch Apply 1 [facility] mg/24 hr 7-25 } Patch to ity of patch 00:00: area(s) [place] 00 every 24 Medical ([facility] Branch ur) hours. Apply 21mg patch daily x 6 weeks; then apply 14mf patch daily x 2 weeks; then apply 7mg patch daily x 2 weeks. Stop smoking on initiation of therapy nicotine 21 Yes [id number] 1{patch Apply 1 [facility] mg/24 hr 7-25 } Patch to ity of patch 00:00: area(s) in [place] 00 the Medical morning. Branch Apply 21mg patch daily x 6 weeks; then apply 14mg patch daily x 2 weeks; then apply 7mg patch daily x 2 weeks. Stop smoking on initiation of therapy nicotine 7 Yes [id number] 1{patch Apply 1 [facility] mg/24 hr 7-25 } Patch to ity of patch 00:00: area(s) [place] 00 every 24 Medical (twenty- Branch ur) hours. Apply 21mg patch daily x 6 weeks; then apply 14mg patch daily x 2 weeks; then apply 7mg patch daily x 2 weeks. Stop smoking on initiation of therapy glipiZIDE Yes [id number] TAKE ONE [facility] 10 mg 7-25 (1) ity of tablet 00:00: TABLET(S) [place] 00 BY MOUTH Medical ONCE A DAY Branch BEFORE MEALS. lipase-prot Yes [id number] 1{capsu Take 1 [facility] ease-amylas 7-25 le} capsule by it y of e 00:00: mouth in [place] 12,000-38,0 00 the [facility] 00 -60,000 morning Branch unit and 1 capsule capsule at noon and 1 capsule in the evening. Take with meals. aspirin 325 Yes [id number] 325mg Take 1 [facility] mg tablet 7-25 tablet by ity o f 00:00: mouth [place] 00 daily with Medical breakfast. Branch nicotine 14 Yes [id number] 1{patch Apply 1 [facility] mg/24 hr 7-25 } Patch to ity of patch 00:00: area(s) [place] 00 every 24 Medical (twenty-[facility] Branch ur) hours. Apply 21mg patch daily x 6 weeks; then apply 14mf patch daily x 2 weeks; then apply 7mg patch daily x 2 weeks. Stop smoking on initiation of therapy nicotine 21 Yes [id number] 1{patch Apply 1 [facility] mg/24 hr 7-25 } Patch to ity of patch 00:00: area(s) in [place] 00 the Medical morning. Branch Apply 21mg patch daily x 6 weeks; then apply 14mg patch daily x 2 weeks; then apply 7mg patch daily x 2 weeks. Stop smoking on initiation of therapy nicotine 7 Yes [id number] 1{patch Apply 1 [facility] mg/24 hr 7-25 } Patch to ity of patch 00:00: area(s) [place] 00 every 24 Medical (twenty-[facility] Branch ur) hours. Apply 21mg patch daily x 6 weeks; then apply 14mg patch daily x 2 weeks; then apply 7mg patch daily x 2 weeks. Stop smoking on initiation of therapy glipiZIDE Yes [id number] TAKE ONE [facility] 10 mg 7-25 (1) ity of tablet 00:00: TABLET(S) [place] 00 BY MOUTH Medical ONCE A DAY Branch BEFORE MEALS. lipase-prot Yes [id number] 1{capsu Take 1 [facility] ease-amylas 7-25 le} capsule by it y of e 00:00: mouth in [place] -,0 00 the [facility] morning Branch unit and 1 capsule capsule at noon and 1 capsule in the evening. Take with meals. aspirin 325 Yes [id number] 325mg Take 1 [facility] mg tablet 7-25 tablet by ity o f 00:00: mouth [place] 00 daily with Medical breakfast. Branch nicotine 14 Yes [id number] 1{patch Apply 1 [facility] mg/24 hr 7-25 } Patch to ity of patch 00:00: area(s) [place] 00 every 24 Medical (twenty- Branch ur) hours. Apply 21mg patch daily x 6 weeks; then apply 14mf patch daily x 2 weeks; then apply 7mg patch daily x 2 weeks. Stop smoking on initiation of therapy nicotine 21 Yes [id number] 1{patch Apply 1 [facility] mg/24 hr 7-25 } Patch to ity of patch 00:00: area(s) in [place] 00 the Medical morning. Branch Apply 21mg patch daily x 6 weeks; then apply 14mg patch daily x 2 weeks; then apply 7mg patch daily x 2 weeks. Stop smoking on initiation of therapy nicotine 7 Yes [id number] 1{patch Apply 1 [facility] mg/24 hr 7-25 } Patch to ity of patch 00:00: area(s) [place] 00 every 24 Medical (twenty-[facility] Branch ur) hours. Apply 21mg patch daily x 6 weeks; then apply 14mg patch daily x 2 weeks; then apply 7mg patch daily x 2 weeks. Stop smoking on initiation of therapy glipiZIDE Yes [id number] TAKE ONE [facility] 10 mg 7-25 (1) ity of tablet 00:00: TABLET(S) [place] 00 BY MOUTH [facility] ONCE A DAY Branch BEFORE MEALS. lipase-prot Yes [id number] 1{capsu Take 1 [facility] ease-amylas 7-25 le} capsule by it y of e 00:00: mouth in [place] -,0 00 the [facility] morning Branch unit and 1 capsule capsule at noon and 1 capsule in the evening. Take with meals. aspirin 325 Yes [id number] 325mg Take 1 [facility] mg tablet 7-25 tablet by ity o f 00:00: mouth [place] 00 daily with Medical breakfast. Branch nicotine 14 Yes [id number] 1{patch Apply 1 [facility] mg/24 hr 7-25 } Patch to ity of patch 00:00: area(s) [place] 00 every 24 Medical (twenty-[facility] Branch ur) hours. Apply 21mg patch daily x 6 weeks; then apply 14mf patch daily x 2 weeks; then apply 7mg patch daily x 2 weeks. Stop smoking on initiation of therapy nicotine 21 Yes [id number] 1{patch Apply 1 [facility] mg/24 hr 7-25 } Patch to ity of patch 00:00: area(s) in [place] 00 the Medical morning. Branch Apply 21mg patch daily x 6 weeks; then apply 14mg patch daily x 2 weeks; then apply 7mg patch daily x 2 weeks. Stop smoking on initiation of therapy nicotine 7 Yes [id number] 1{patch Apply 1 [facility] mg/24 hr 7-25 } Patch to ity of patch 00:00: area(s) [place] 00 every 24 Medical (twenty-[facility] Branch ur) hours. Apply 21mg patch daily x 6 weeks; then apply 14mg patch daily x 2 weeks; then apply 7mg patch daily x 2 weeks. Stop smoking on initiation of therapy glipiZIDE Yes [id number] TAKE ONE [facility] 10 mg 7-25 (1) ity of tablet 00:00: TABLET(S) [place] 00 BY MOUTH Medical ONCE A DAY Branch BEFORE MEALS. lipase-prot Yes [id number] 1{capsu Take 1 [facility] ease-amylas 7-25 le} capsule by it y of e 00:00: mouth in [place] 12,000-38,0 00 the [facility] 00 -60,000 morning Branch unit and 1 capsule capsule at noon and 1 capsule in the evening. Take with meals. aspirin 325 Yes [id number] 325mg Take 1 [facility] mg tablet 7-25 tablet by ity o f 00:00: mouth [place] 00 daily with Medical breakfast. Branch nicotine 14 Yes [id number] 1{patch Apply 1 [facility] mg/24 hr 7-25 } Patch to ity of patch 00:00: area(s) [place] 00 every 24 Medical (twenty-[facility] Branch ur) hours. Apply 21mg patch daily x 6 weeks; then apply 14mf patch daily x 2 weeks; then apply 7mg patch daily x 2 weeks. Stop smoking on initiation of therapy nicotine 21 Yes [id number] 1{patch Apply 1 [facility] mg/24 hr 7-25 } Patch to ity of patch 00:00: area(s) in [place] 00 the Medical morning. Branch Apply 21mg patch daily x 6 weeks; then apply 14mg patch daily x 2 weeks; then apply 7mg patch daily x 2 weeks. Stop smoking on initiation of therapy nicotine 7 Yes [id number] 1{patch Apply 1 [facility] mg/24 hr 7-25 } Patch to ity of patch 00:00: area(s) [place] 00 every 24 Medical (twenty-[facility] Branch ur) hours. Apply 21mg patch daily x 6 weeks; then apply 14mg patch daily x 2 weeks; then apply 7mg patch daily x 2 weeks. Stop smoking on initiation of therapy glipiZIDE Yes [id number] TAKE ONE [facility] 10 mg 7-25 (1) ity of tablet 00:00: TABLET(S) [place] 00 BY MOUTH Medical ONCE A DAY Branch BEFORE MEALS. lipase-prot Yes [id number] 1{capsu Take 1 [facility] ease-amylas 7-25 le} capsule by it y of e 00:00: mouth in [place] 12,000-38,0 00 the [facility] 00 -60,000 morning Branch unit and 1 capsule capsule at noon and 1 capsule in the evening. Take with meals. aspirin 325 Yes [id number] 325mg Take 1 [facility] mg tablet 7-25 tablet by ity o f 00:00: mouth [place] 00 daily with Medical breakfast. Branch nicotine 14 Yes [id number] 1{patch Apply 1 [facility] mg/24 hr 7-25 } Patch to ity of patch 00:00: area(s) [place] 00 every 24 Medical (twenty-[facility] Branch ur) hours. Apply 21mg patch daily x 6 weeks; then apply 14mf patch daily x 2 weeks; then apply 7mg patch daily x 2 weeks. Stop smoking on initiation of therapy nicotine 21 Yes [id number] 1{patch Apply 1 [facility] mg/24 hr 7-25 } Patch to ity of patch 00:00: area(s) in [place] 00 the Medical morning. Branch Apply 21mg patch daily x 6 weeks; then apply 14mg patch daily x 2 weeks; then apply 7mg patch daily x 2 weeks. Stop smoking on initiation of therapy nicotine 7 Yes [id number] 1{patch Apply 1 [facility] mg/24 hr 7-25 } Patch to ity of patch 00:00: area(s) [place] 00 every 24 Medical (twenty- Branch ur) hours. Apply 21mg patch daily x 6 weeks; then apply 14mg patch daily x 2 weeks; then apply 7mg patch daily x 2 weeks. Stop smoking on initiation of therapy glipiZIDE Yes [id number] TAKE ONE [facility] 10 mg 7-25 (1) ity of tablet 00:00: TABLET(S) [place] 00 BY MOUTH Medical ONCE A DAY Branch BEFORE MEALS. lipase-prot Yes [id number] 1{capsu Take 1 [facility] ease-amylas 7-25 le} capsule by it y of e 00:00: mouth in [place] 12,000-38,0 00 the Medical 00 -60,000 morning Branch unit and 1 capsule capsule at noon and 1 capsule in the evening. Take with meals. aspirin 325 Yes [id number] 325mg Take 1 [facility] mg tablet 7-25 tablet by ity o f 00:00: mouth [place] 00 daily with Medical breakfast. Branch nicotine Yes [id number] 1{patch Apply 1 [facility] mg/24 hr 7-25 } Patch to ity of patch 00:00: area(s) [place] 00 every 24 Medical ([facility] Branch ur) hours. Apply 21mg patch daily x 6 weeks; then apply 14mf patch daily x 2 weeks; then apply 7mg patch daily x 2 weeks. Stop smoking on initiation of therapy nicotine Yes [id number] 1{patch Apply 1 [facility] mg/24 hr 7-25 } Patch to ity of patch 00:00: area(s) in [place] 00 the Medical morning. Branch Apply 21mg patch daily x 6 weeks; then apply 14mg patch daily x 2 weeks; then apply 7mg patch daily x 2 weeks. Stop smoking on initiation of therapy nicotine 7 Yes [id number] 1{patch Apply 1 [facility] mg/24 hr 7-25 } Patch to ity of patch 00:00: area(s) [place] 00 every 24 Medical (twenty-fo Branch ur) hours. Apply 21mg patch daily x 6 weeks; then apply 14mg patch daily x 2 weeks; then apply 7mg patch daily x 2 weeks. Stop smoking on initiation of therapy glipiZIDE Yes [id number] TAKE ONE [facility] 10 mg 7-25 (1) ity of tablet 00:00: TABLET(S) [place] 00 BY MOUTH Medical ONCE A DAY Branch BEFORE MEALS. lipase-prot Yes [id number] 1{capsu Take 1 [facility] ease-amylas 7-25 le} capsule by it y of e 00:00: mouth in [place] 12,000-38,0 00 the [facility] 00 -60,000 morning Branch unit and 1 capsule capsule at noon and 1 capsule in the evening. Take with meals. aspirin 325 Yes [id number] 325mg Take 1 [facility] mg tablet 7-25 tablet by ity o f 00:00: mouth [place] 00 daily with Medical breakfast. Branch nicotine 14 Yes [id number] 1{patch Apply 1 [facility] mg/24 hr 7-25 } Patch to ity of patch 00:00: area(s) [place] 00 every 24 Medical ([facility]) hours. Apply 21mg patch daily x 6 weeks; then apply 14mf patch daily x 2 weeks; then apply 7mg patch daily x 2 weeks. Stop smoking on initiation of therapy nicotine 21 Yes [id number] 1{patch Apply 1 [facility] mg/24 hr 7-25 } Patch to ity of patch 00:00: area(s) in [place] 00 the Medical morning. Branch Apply 21mg patch daily x 6 weeks; then apply 14mg patch daily x 2 weeks; then apply 7mg patch daily x 2 weeks. Stop smoking on initiation of therapy nicotine 7 Yes [id number] 1{patch Apply 1 [facility] mg/24 hr 7-25 } Patch to ity of patch 00:00: area(s) [place] 00 every 24 Medical ([facility]) hours. Apply 21mg patch daily x 6 weeks; then apply 14mg patch daily x 2 weeks; then apply 7mg patch daily x 2 weeks. Stop smoking on initiation of therapy glipiZIDE Yes [id number] TAKE ONE [facility] 10 mg 7-25 (1) ity of tablet 00:00: TABLET(S) [place] 00 BY MOUTH Medical ONCE A DAY Branch BEFORE MEALS. lipase-prot Yes [id number] 1{capsu Take 1 [facility] ease-amylas 7-25 le} capsule by it y of e 00:00: mouth in [place] -,0 00 the Medical morning Branch unit and 1 capsule capsule at noon and 1 capsule in the evening. Take with meals. aspirin 325 Yes [id number] 325mg Take 1 [facility] mg tablet 7-25 tablet by ity o f 00:00: mouth [place] 00 daily with Medical breakfast. Branch nicotine 14 Yes [id number] 1{patch Apply 1 [facility] mg/24 hr 7-25 } Patch to ity of patch 00:00: area(s) [place] 00 every 24 Medical (twenty-fo Branch ur) hours. Apply 21mg patch daily x 6 weeks; then apply 14mf patch daily x 2 weeks; then apply 7mg patch daily x 2 weeks. Stop smoking on initiation of therapy nicotine 21 Yes [id number] 1{patch Apply 1 [facility] mg/24 hr 7-25 } Patch to ity of patch 00:00: area(s) in [place] 00 the Medical morning. Branch Apply 21mg patch daily x 6 weeks; then apply 14mg patch daily x 2 weeks; then apply 7mg patch daily x 2 weeks. Stop smoking on initiation of therapy nicotine 7 Yes [id number] 1{patch Apply 1 [facility] mg/24 hr 7-25 } Patch to ity of patch 00:00: area(s) [place] 00 every 24 Medical (twenty-fo Branch ur) hours. Apply 21mg patch daily x 6 weeks; then apply 14mg patch daily x 2 weeks; then apply 7mg patch daily x 2 weeks. Stop smoking on initiation of therapy glipiZIDE Yes [id number] TAKE ONE [facility] 10 mg 7-25 (1) ity of tablet 00:00: TABLET(S) [place] 00 BY MOUTH Medical ONCE A DAY Branch BEFORE MEALS. lipase-prot Yes [id number] 1{capsu Take 1 [facility] ease-amylas 7-25 le} capsule by it y of e 00:00: mouth in [place] -,0 00 the Medical morning Branch unit and 1 capsule capsule at noon and 1 capsule in the evening. Take with meals. aspirin 325 Yes [id number] 325mg Take 1 [facility] mg tablet 7-25 tablet by ity o f 00:00: mouth [place] 00 daily with Medical breakfast. Branch nicotine Yes [id number] 1{patch Apply 1 [facility] mg/24 hr 7-25 } Patch to ity of patch 00:00: area(s) [place] 00 every 24 Medical (twenty-fo Branch ur) hours. Apply 21mg patch daily x 6 weeks; then apply 14mf patch daily x 2 weeks; then apply 7mg patch daily x 2 weeks. Stop smoking on initiation of therapy nicotine 21 Yes [id number] 1{patch Apply 1 [facility] mg/24 hr 7-25 } Patch to ity of patch 00:00: area(s) in [place] 00 the Medical morning. Branch Apply 21mg patch daily x 6 weeks; then apply 14mg patch daily x 2 weeks; then apply 7mg patch daily x 2 weeks. Stop smoking on initiation of therapy nicotine 7 Yes [id number] 1{patch Apply 1 [facility] mg/24 hr 7-25 } Patch to ity of patch 00:00: area(s) [place] 00 every 24 Medical (twenty-fo Branch ur) hours. Apply 21mg patch daily x 6 weeks; then apply 14mg patch daily x 2 weeks; then apply 7mg patch daily x 2 weeks. Stop smoking on initiation of therapy glipiZIDE Yes [id number] TAKE ONE [facility] 10 mg 7-25 (1) ity of tablet 00:00: TABLET(S) [place] 00 BY MOUTH Medical ONCE A DAY Branch BEFORE MEALS. lipase-prot Yes [id number] 1{capsu Take 1 [facility] ease-amylas 7-25 le} capsule by it y of e 00:00: mouth in [place] 12,000-38,0 00 the Medical 00 -60,000 morning Branch unit and 1 capsule capsule at noon and 1 capsule in the evening. Take with meals. aspirin 325 Yes [id number] 325mg Take 1 [facility] mg tablet 7-25 tablet by ity o f 00:00: mouth [place] 00 daily with Medical breakfast. Branch nicotine 14 Yes [id number] 1{patch Apply 1 [facility] mg/24 hr 7-25 } Patch to ity of patch 00:00: area(s) [place] 00 every 24 Medical (twenty- Branch ur) hours. Apply 21mg patch daily x 6 weeks; then apply 14mf patch daily x 2 weeks; then apply 7mg patch daily x 2 weeks. Stop smoking on initiation of therapy nicotine Yes [id number] 1{patch Apply 1 [facility] mg/24 hr 7-25 } Patch to ity of patch 00:00: area(s) in [place] 00 the Medical morning. Branch Apply 21mg patch daily x 6 weeks; then apply 14mg patch daily x 2 weeks; then apply 7mg patch daily x 2 weeks. Stop smoking on initiation of therapy nicotine 7 Yes [id number] 1{patch Apply 1 [facility] mg/24 hr 7-25 } Patch to ity of patch 00:00: area(s) [place] 00 every 24 Medical ([facility]- Branch ur) hours. Apply 21mg patch daily x 6 weeks; then apply 14mg patch daily x 2 weeks; then apply 7mg patch daily x 2 weeks. Stop smoking on initiation of therapy glipiZIDE Yes [id number] TAKE ONE [facility] 10 mg 7-25 (1) ity of tablet 00:00: TABLET(S) [place] 00 BY MOUTH Medical ONCE A DAY Branch BEFORE MEALS. lipase-prot Yes [id number] 1{capsu Take 1 [facility] ease-amylas 7-25 le} capsule by it y of e 00:00: mouth in [place] 12,000-38,0 00 the [facility] 00 -60,000 morning Branch unit and 1 capsule capsule at noon and 1 capsule in the evening. Take with meals. aspirin 325 Yes [id number] 325mg Take 1 [facility] mg tablet 7-25 tablet by ity o f 00:00: mouth [place] 00 daily with Medical breakfast. Branch nicotine 14 Yes [id number] 1{patch Apply 1 [facility] mg/24 hr 7-25 } Patch to ity of patch 00:00: area(s) [place] 00 every 24 Medical (twenty- Branch ur) hours. Apply 21mg patch daily x 6 weeks; then apply 14mf patch daily x 2 weeks; then apply 7mg patch daily x 2 weeks. Stop smoking on initiation of therapy nicotine Yes [id number] 1{patch Apply 1 [facility] mg/24 hr 7-25 } Patch to ity of patch 00:00: area(s) in [place] 00 the Medical morning. Branch Apply 21mg patch daily x 6 weeks; then apply 14mg patch daily x 2 weeks; then apply 7mg patch daily x 2 weeks. Stop smoking on initiation of therapy nicotine 7 Yes [id number] 1{patch Apply 1 [facility] mg/24 hr 7-25 } Patch to ity of patch 00:00: area(s) [place] 00 every 24 Medical (twenty-fo Branch ur) hours. Apply 21mg patch daily x 6 weeks; then apply 14mg patch daily x 2 weeks; then apply 7mg patch daily x 2 weeks. Stop smoking on initiation of therapy glipiZIDE Yes [id number] TAKE ONE [facility] 10 mg 7-25 (1) ity of tablet 00:00: TABLET(S) [place] 00 BY MOUTH Medical ONCE A DAY Branch BEFORE MEALS. lipase-prot Yes [id number] 1{capsu Take 1 [facility] ease-amylas 7-25 le} capsule by it y of e 00:00: mouth in [place] 12,000-38,0 00 the [facility] 00 -60,000 morning Branch unit and 1 capsule capsule at noon and 1 capsule in the evening. Take with meals. aspirin 325 Yes [id number] 325mg Take 1 [facility] mg tablet 7-25 tablet by ity o f 00:00: mouth [place] 00 daily with Medical breakfast. Branch nicotine Yes [id number] 1{patch Apply 1 [facility] mg/24 hr 7-25 } Patch to ity of patch 00:00: area(s) [place] 00 every 24 Medical (twenty-fo Branch ur) hours. Apply 21mg patch daily x 6 weeks; then apply 14mf patch daily x 2 weeks; then apply 7mg patch daily x 2 weeks. Stop smoking on initiation of therapy nicotine 21 Yes [id number] 1{patch Apply 1 [facility] mg/24 hr 7-25 } Patch to ity of patch 00:00: area(s) in [place] 00 the Medical morning. Branch Apply 21mg patch daily x 6 weeks; then apply 14mg patch daily x 2 weeks; then apply 7mg patch daily x 2 weeks. Stop smoking on initiation of therapy nicotine 7 Yes [id number] 1{patch Apply 1 [facility] mg/24 hr 7-25 } Patch to ity of patch 00:00: area(s) [place] 00 every 24 Medical ([facility] Branch ur) hours. Apply 21mg patch daily x 6 weeks; then apply 14mg patch daily x 2 weeks; then apply 7mg patch daily x 2 weeks. Stop smoking on initiation of therapy glipiZIDE Yes [id number] TAKE ONE [facility] 10 mg 7-25 (1) ity of tablet 00:00: TABLET(S) [place] 00 BY MOUTH Medical ONCE A DAY Branch BEFORE MEALS. lipase-prot Yes [id number] 1{capsu Take 1 [facility] ease-amylas 7-25 le} capsule by it y of e 00:00: mouth in [place] 12,000-38,0 00 the [facility] 00 -60,000 morning Branch unit and 1 capsule capsule at noon and 1 capsule in the evening. Take with meals. aspirin 325 Yes [id number] 325mg Take 1 [facility] mg tablet 7-25 tablet by ity o f 00:00: mouth [place] 00 daily with Medical breakfast. Branch nicotine 14 Yes [id number] 1{patch Apply 1 [facility] mg/24 hr 7-25 } Patch to ity of patch 00:00: area(s) [place] 00 every 24 Medical ([facility] Branch ur) hours. Apply 21mg patch daily x 6 weeks; then apply 14mf patch daily x 2 weeks; then apply 7mg patch daily x 2 weeks. Stop smoking on initiation of therapy nicotine 21 Yes [id number] 1{patch Apply 1 [facility] mg/24 hr 7-25 } Patch to ity of patch 00:00: area(s) in [place] 00 the Medical morning. Branch Apply 21mg patch daily x 6 weeks; then apply 14mg patch daily x 2 weeks; then apply 7mg patch daily x 2 weeks. Stop smoking on initiation of therapy nicotine 7 Yes [id number] 1{patch Apply 1 [facility] mg/24 hr 7-25 } Patch to ity of patch 00:00: area(s) [place] 00 every 24 Medical (twenty- Branch ur) hours. Apply 21mg patch daily x 6 weeks; then apply 14mg patch daily x 2 weeks; then apply 7mg patch daily x 2 weeks. Stop smoking on initiation of therapy glipiZIDE Yes [id number] TAKE ONE [facility] 10 mg 7-25 (1) ity of tablet 00:00: TABLET(S) [place] 00 BY MOUTH Medical ONCE A DAY Branch BEFORE MEALS. aspirin 325 Yes [id number] 325mg Take 1 [facility] mg tablet 7-25 tablet by ity o f 00:00: mouth [place] 00 daily with Medical breakfast. Branch aspirin 325 Yes [id number] 325mg Take 1 [facility] mg tablet 7-25 tablet by ity o f 00:00: mouth [place] 00 daily with Medical breakfast. Branch aspirin 325 Yes [id number] 325mg Take 1 [facility] mg tablet 7-25 tablet by ity o f 00:00: mouth [place] 00 daily with Medical breakfast. Branch aspirin 325 Yes [id number] 325mg Take 1 [facility] mg tablet 7-25 tablet by ity o f 00:00: mouth [place] 00 daily with Medical breakfast. Branch aspirin 325 Yes [id number] 325mg Take 1 [facility] mg tablet 7-25 tablet by ity o f 00:00: mouth [place] 00 daily with Medical breakfast. Branch aspirin 325 Yes [id number] 325mg Take 1 [facility] mg tablet 7-25 tablet by ity o f 00:00: mouth [place] 00 daily with Medical breakfast. Branch aspirin 325 Yes [id number] 325mg Take 1 [facility] mg tablet 7-25 tablet by ity o f 00:00: mouth [place] 00 daily with Medical breakfast. Branch aspirin 325 Yes [id number] 325mg Take 1 [facility] mg tablet 7-25 tablet by ity o f 00:00: mouth [place] 00 daily with Medical breakfast. Branch aspirin 325 0 Yes [id number] 325mg Take 1 [facility] mg tablet 7-25 tablet by ity o f 00:00: mouth [place] 00 daily with Medical breakfast. Branch aspirin 325 0 Yes [id number] 325mg Take 1 [facility] mg tablet 7-25 tablet by ity o f 00:00: mouth [place] 00 daily with Medical breakfast. Branch aspirin 325 0 Yes [id number] 325mg Take 1 [facility] mg tablet 7-25 tablet by ity o f 00:00: mouth [place] 00 daily with Medical breakfast. Branch aspirin 325 0 Yes [id number] 325mg Take 1 [facility] mg tablet 7-25 tablet by ity o f 00:00: mouth [place] 00 daily with Medical breakfast. Branch aspirin 325 Yes [id number] 325mg Take 1 [facility] mg tablet 7-25 tablet by ity o f 00:00: mouth [place] 00 daily with Medical breakfast. Branch aspirin 325 Yes [id number] 325mg Take 1 [facility] mg tablet 7-25 tablet by ity o f 00:00: mouth [place] 00 daily with Medical breakfast. Branch aspirin 325 Yes [id number] 325mg Take 1 [facility] mg tablet 7-25 tablet by ity o f 00:00: mouth [place] 00 daily with Medical breakfast. Branch aspirin 325 Yes [id number] 325mg Take 1 [facility] mg tablet 7-25 tablet by ity o f 00:00: mouth [place] 00 daily with Medical breakfast. Branch aspirin 325 Yes [id number] 325mg Take 1 [facility] mg tablet 7-25 tablet by ity o f 00:00: mouth [place] 00 daily with Medical breakfast. Branch aspirin 325 Yes [id number] 325mg Take 1 [facility] mg tablet 7-25 tablet by ity o f 00:00: mouth [place] 00 daily with Medical breakfast. Branch aspirin 325 Yes [id number] 325mg Take 1 [facility] mg tablet 7-25 tablet by ity o f 00:00: mouth [place] 00 daily with Medical breakfast. [place] lipase-prot 2022- No [id number] 1{capsu Take 1 [facility] ease-amylas 03-08 07-20 le} capsule by i ty of e 00:00: 00:00 mouth in [place] 12,000-38,0 00 :00 the Medical 00 -60,000 morning Branch unit and 1 capsule capsule at noon and 1 capsule in the evening. Take with meals. nicotine 14 2022- No [id number] 1{patch Apply 1 [facility] mg/24 hr 03-08-20 } Patch to ity of patch 00:00: 00:00 area(s) [place] 00 :00 every 24 Medical (twenty-fo Branch ur) hours. Apply 21mg patch daily x 6 weeks; then apply 14mf patch daily x 2 weeks; then apply 7mg patch daily x 2 weeks. Stop smoking on initiation of therapy nicotine 21 2022- No [id number] 1{patch Apply 1 [facility] mg/24 hr 7-25 07-20 } Patch to ity of patch 00:00: 00:00 area(s) in [place] 00 :00 the Medical morning. Branch Apply 21mg patch daily x 6 weeks; then apply 14mg patch daily x 2 weeks; then apply 7mg patch daily x 2 weeks. Stop smoking on initiation of therapy nicotine 7 2022- No [id number] 1{patch Apply 1 [facility] mg/24 hr 7-25 07-20 } Patch to ity of patch 00:00: 00:00 area(s) [place] 00 :00 every 24 Medical (twenty-fo Branch ur) hours. Apply 21mg patch daily x 6 weeks; then apply 14mg patch daily x 2 weeks; then apply 7mg patch daily x 2 weeks. Stop smoking on initiation of therapy glipiZIDE 2022- No [id number] TAKE ONE [facility] 10 mg - 07-20 (1) ity of tablet 00:00: 00:00 TABLET(S) [place] 00 :00 BY MOUTH Medical ONCE A DAY Branch BEFORE MEALS. lipase-prot 2022- No [id number] 1{capsu Take 1 [facility] ease-amylas - 07-20 le} capsule by i ty of e 00:00: 00:00 mouth in [place] 12,000-38,0 00 :00 the [facility] 00 -60,000 morning Branch unit and 1 capsule capsule at noon and 1 capsule in the evening. Take with meals. nicotine 14 2022- No [id number] 1{patch Apply 1 [facility] mg/24 hr 7-25 07-20 } Patch to ity of patch 00:00: 00:00 area(s) [place] 00 :00 every 24 Medical (twenty-fo Branch ur) hours. Apply 21mg patch daily x 6 weeks; then apply 14mf patch daily x 2 weeks; then apply 7mg patch daily x 2 weeks. Stop smoking on initiation of therapy nicotine 21 2022- No [id number] 1{patch Apply 1 [facility] mg/24 hr 7-25 07-20 } Patch to ity of patch 00:00: 00:00 area(s) in [place] 00 :00 the Medical morning. Branch Apply 21mg patch daily x 6 weeks; then apply 14mg patch daily x 2 weeks; then apply 7mg patch daily x 2 weeks. Stop smoking on initiation of therapy nicotine 2022- No [id number] 1{patch Apply 1 [facility] mg/24 hr 7-25 07-20 } Patch to ity of patch 00:00: 00:00 area(s) [place] 00 :00 every 24 Medical (twenty-fo Branch ur) hours. Apply 21mg patch daily x 6 weeks; then apply 14mg patch daily x 2 weeks; then apply 7mg patch daily x 2 weeks. Stop smoking on initiation of therapy glipiZIDE 2022- No [id number] TAKE ONE [facility] 10 mg - 07-20 (1) ity of tablet 00:00: 00:00 TABLET(S) [place] 00 :00 BY MOUTH Medical ONCE A DAY Branch BEFORE MEALS. lipase-prot 2022- No [id number] 1{capsu Take 1 [facility] ease-amylas 03-08-20 le} capsule by i ty of e 00:00: 00:00 mouth in [place] 12,000-38,0 00 :00 [facility] 00 -60,000 morning Branch unit and 1 capsule capsule at noon and 1 capsule in the evening. Take with meals. nicotine 2022- No [id number] 1{patch Apply 1 [facility] mg/24 hr 7-25 07-20 } Patch to ity of patch 00:00: 00:00 area(s) [place] 00 :00 every 24 Medical (twenty-fo Branch ur) hours. Apply 21mg patch daily x 6 weeks; then apply 14mf patch daily x 2 weeks; then apply 7mg patch daily x 2 weeks. Stop smoking on initiation of therapy nicotine 2022- No [id number] 1{patch Apply 1 [facility] mg/24 hr 7-25 07-20 } Patch to ity of patch 00:00: 00:00 area(s) in [place] 00 :00 the Medical morning. Branch Apply 21mg patch daily x 6 weeks; then apply 14mg patch daily x 2 weeks; then apply 7mg patch daily x 2 weeks. Stop smoking on initiation of therapy nicotine 7 2022- No [id number] 1{patch Apply 1 [facility] mg/24 hr 7-25 07-20 } Patch to ity of patch 00:00: 00:00 area(s) [place] 00 :00 every 24 Medical (twenty- Branch ur) hours. Apply 21mg patch daily x 6 weeks; then apply 14mg patch daily x 2 weeks; then apply 7mg patch daily x 2 weeks. Stop smoking on initiation of therapy glipiZIDE 2022- No [id number] TAKE ONE [facility] 10 mg 03-08-20 (1) ity of tablet 00:00: 00:00 TABLET(S) [place] 00 :00 BY MOUTH Medical ONCE A DAY Branch BEFORE MEALS. lipase-prot 2022- No [id number] 1{capsu Take 1 [facility] ease-amylas 03-08-20 le} capsule by i ty of e 00:00: 00:00 mouth in [place] 12,000-38,0 00 :00 the [facility] 00 -60,000 morning Branch unit and 1 capsule capsule at noon and 1 capsule in the evening. Take with meals. nicotine 14 2022- No [id number] 1{patch Apply 1 [facility] mg/24 hr 7-25 07-20 } Patch to ity of patch 00:00: 00:00 area(s) [place] 00 :00 every 24 Medical (twenty- Branch ur) hours. Apply 21mg patch daily x 6 weeks; then apply 14mf patch daily x 2 weeks; then apply 7mg patch daily x 2 weeks. Stop smoking on initiation of therapy nicotine 21 2022- No [id number] 1{patch Apply 1 [facility] mg/24 hr 7-25 07-20 } Patch to ity of patch 00:00: 00:00 area(s) in [place] 00 :00 the Medical morning. Branch Apply 21mg patch daily x 6 weeks; then apply 14mg patch daily x 2 weeks; then apply 7mg patch daily x 2 weeks. Stop smoking on initiation of therapy nicotine 7 2022- No [id number] 1{patch Apply 1 [facility] mg/24 hr 7-25 07-20 } Patch to ity of patch 00:00: 00:00 area(s) [place] 00 :00 every 24 Medical (twenty- Branch ur) hours. Apply 21mg patch daily x 6 weeks; then apply 14mg patch daily x 2 weeks; then apply 7mg patch daily x 2 weeks. Stop smoking on initiation of therapy glipiZIDE 2022- No [id number] TAKE ONE [facility] 10 mg 7-25 07-20 (1) ity of tablet 00:00: 00:00 TABLET(S) [place] 00 :00 BY MOUTH Medical ONCE A DAY Branch BEFORE MEALS. atorvastati 2022- No [id number] 40mg Take 1 [facility] n 40 mg 7-25 04-06 tablet by ity of tablet 00:00: 00:00 mouth at [place] 00 :00 bedtime. Medical Branch terazosin 5 2022- No [id number] 5mg Take 1 [facility] mg capsule 7-25 04-06 capsule by it y of 00:00: 00:00 mouth [place] 00 :00 every Medical evening. Branch triamterene 2022- No [id number] 1{tbl} Take 1 [facility] -hydrochlor 7-07 12-06 tablet by it y of othiazid 00:00: 00:00 mouth in [facility] s 37.5-25 mg 00 :00 the Medical tablet morning. Branch amLODIPine- 2022- No [id number] 1{capsu Take 1 [facility] benazepriL 7-25 04-06 le} capsule by it y of 10-40 mg 00:00: 00:00 mouth in [facility] per capsule 00 :00 the Medical morning. Branch carvediloL 2022- No [id number] 25mg Take 1 [facility] 25 mg 7-25 -06 tablet by ity of tablet 00:00: 00:00 mouth in [place] 00 :00 the Medical morning Branch and 1 tablet in the evening. Take with meals. TAKE ONE (1) TABLET(S) BY MOUTH TWICE A DAY WITH FOOD. atorvastati 2022- No [id number] 40mg Take 1 [facility] n 40 mg 7-25 04-06 tablet by ity of tablet 00:00: 00:00 mouth at [place] 00 :00 bedtime. Medical Branch terazosin 5 2022- No [id number] 5mg Take 1 [facility] mg capsule 7-25 04-06 capsule by it y of 00:00: 00:00 mouth [place] 00 :00 every Medical evening. Branch triamterene 2022- No [id number] 1{tbl} Take 1 [facility] -hydrochlor 7-25 04-06 tablet by it y of othiazid 00:00: 00:00 mouth in [facility] s 37.5-25 mg 00 :00 the Medical tablet morning. Branch amLODIPine- 2022- No [id number] 1{capsu Take 1 [facility] benazepriL 7-25 04-06 le} capsule by it y of 10-40 mg 00:00: 00:00 mouth in [facility] s per capsule 00 :00 the Medical morning. Branch carvediloL 2022- No [id number] 25mg Take 1 [facility] 25 mg 7-25 04-06 tablet by ity of tablet 00:00: 00:00 mouth in [place] 00 :00 the Medical morning Branch and 1 tablet in the evening. Take with meals. TAKE ONE (1) TABLET(S) BY MOUTH TWICE A DAY WITH FOOD. atorvastati 2022- No [id number] 40mg Take 1 [facility] n 40 mg 7-25 04-06 tablet by ity of tablet 00:00: 00:00 mouth at [place] 00 :00 bedtime. Medical Branch terazosin 5 2022- No [id number] 5mg Take 1 [facility] mg capsule 7-25 04-06 capsule by it y of 00:00: 00:00 mouth [place] 00 :00 every Medical evening. Branch triamterene 2022- No [id number] 1{tbl} Take 1 [facility] -hydrochlor 7-25 04-06 tablet by it y of othiazid 00:00: 00:00 mouth in [facility] 37.5-25 mg 00 :00 the Medical tablet morning. Branch amLODIPine- 2022- No [id number] 1{capsu Take 1 [facility] benazepriL 7-25 04-06 le} capsule by it y of 10-40 mg 00:00: 00:00 mouth in [facility] per capsule 00 :00 the Medical morning. Branch carvediloL 2022- No [id number] 25mg Take 1 [facility] 25 mg 7-25 04-06 tablet by ity of tablet 00:00: 00:00 mouth in [place] 00 :00 the Medical morning Branch and 1 tablet in the evening. Take with meals. TAKE ONE (1) TABLET(S) BY MOUTH TWICE A DAY WITH FOOD. atorvastati 2022- No [id number] 40mg Take 1 [facility] n 40 mg -07 12- tablet by ity of tablet 00:00: 00:00 mouth at [place] 00 :00 bedtime. Medical Branch terazosin 5 2022- No [id number] 5mg Take 1 [facility] mg capsule -07 12- capsule by it y of 00:00: 00:00 mouth [place] 00 :00 every Medical evening. Branch triamterene 2022- No [id number] 1{tbl} Take 1 [facility] -hydrochlor -07 12- tablet by it y of othiazid 00:00: 00:00 [place] 37.5-25 mg 00 :00 the Medical tablet morning. Branch amLODIPine- 2022- No [id number] 1{capsu Take 1 [facility] benazepriL -07 12- le} capsule by it y of 10-40 mg 00:00: 00:00 mouth in [facility] per capsule 00 :00 the Medical morning. Branch carvediloL 2022- No [id number] 25mg Take 1 Univers 25 mg -07 12- tablet by ity of tablet 00:00: 00:00 mouth in [place] 00 :00 the Medical morning Branch and 1 tablet in the evening. Take with meals. TAKE ONE (1) TABLET(S) BY MOUTH TWICE A DAY WITH FOOD. methocarbam 2021- No [id number] 750mg Take 1 Univers oL 03-05-30 tablet by ity of (ROBAXIN-75 00:00: 04:59 mouth in [place] 0) 750 mg 00 :00 the Medical tablet morning Branch and 1 tablet at noon and 1 tablet in the evening. Do all this for 7 days. hydrALAZINE 2021- No [id number] 50mg Take 1 Univers 50 mg 03-05-25 tablet by ity of tablet 00:00: 00:00 mouth [place] 00 :00 every 8 Medical (eight) Branch hours. METFORMIN Yes [id number] TAKE ONE Univers 1,000 mg 5-13 (1) ity of tablet 00:00: TABLET(S) [place] 00 BY MOUTH Medical EVERY Branch TWELVE HOURS WITH MORNING AND EVENING MEALS. METFORMIN 2-0 Yes [id number] TAKE ONE Univers 1,000 mg 5-13 (1) ity of tablet 00:00: TABLET(S) [place] 00 BY MOUTH Medical EVERY Branch TWELVE HOURS WITH MORNING AND EVENING MEALS. METFORMIN 2022-0 Yes [id number] TAKE ONE Univers 1,000 mg 5-13 (1) ity of tablet 00:00: TABLET(S) [place] 00 BY MOUTH Medical EVERY Branch TWELVE HOURS WITH MORNING AND EVENING MEALS. METFORMIN 2022-0 Yes [id number] TAKE ONE Univers 1,000 mg 5-13 (1) ity of tablet 00:00: TABLET(S) [place] 00 BY MOUTH Medical EVERY Branch TWELVE HOURS WITH MORNING AND EVENING MEALS. METFORMIN 2021-0 Yes [id number] TAKE ONE Univers 1,000 mg 5-13 (1) ity of tablet 00:00: TABLET(S) [place] 00 BY MOUTH Medical EVERY Branch TWELVE HOURS WITH MORNING AND EVENING MEALS. METFORMIN 2021-0 Yes [id number] TAKE ONE Univers 1,000 mg 5-13 (1) ity of tablet 00:00: TABLET(S) [place] 00 BY MOUTH Medical EVERY Branch TWELVE HOURS WITH MORNING AND EVENING MEALS. METFORMIN 2021-0 Yes [id number] TAKE ONE Univers 1,000 mg 5-13 (1) ity of tablet 00:00: TABLET(S) [place] 00 BY MOUTH Medical EVERY Branch TWELVE HOURS WITH MORNING AND EVENING MEALS. METFORMIN 2021-0 Yes [id number] TAKE ONE Univers 1,000 mg 5-13 (1) ity of tablet 00:00: TABLET(S) [place] 00 BY MOUTH Medical EVERY Branch TWELVE HOURS WITH MORNING AND EVENING MEALS. METFORMIN 2022-0 Yes [id number] TAKE ONE Univers 1,000 mg 5-13 (1) ity of tablet 00:00: TABLET(S) [place] 00 BY MOUTH Medical EVERY Branch TWELVE HOURS WITH MORNING AND EVENING MEALS. METFORMIN 2022-0 Yes [id number] TAKE ONE Univers 1,000 mg 5-13 (1) ity of tablet 00:00: TABLET(S) [place] 00 BY MOUTH Medical EVERY Branch TWELVE HOURS WITH MORNING AND EVENING MEALS. METFORMIN 2022-0 Yes [id number] TAKE ONE Univers 1,000 mg 5-13 (1) ity of tablet 00:00: TABLET(S) [place] 00 BY MOUTH Medical EVERY Branch TWELVE HOURS WITH MORNING AND EVENING MEALS. METFORMIN 2021-0 Yes [id number] TAKE ONE Univers 1,000 mg 5-13 (1) ity of tablet 00:00: TABLET(S) [place] 00 BY MOUTH Medical EVERY Branch TWELVE HOURS WITH MORNING AND EVENING MEALS. METFORMIN 2021-0 Yes [id number] TAKE ONE Univers 1,000 mg 5-13 (1) ity of tablet 00:00: TABLET(S) [place] 00 BY MOUTH Medical EVERY Branch TWELVE HOURS WITH MORNING AND EVENING MEALS. METFORMIN 2021-0 Yes [id number] TAKE ONE Univers 1,000 mg 5-13 (1) ity of tablet 00:00: TABLET(S) [place] 00 BY MOUTH Medical EVERY Branch TWELVE HOURS WITH MORNING AND EVENING MEALS. METFORMIN 2021-0 Yes [id number] TAKE ONE Univers 1,000 mg 5-13 (1) ity of tablet 00:00: TABLET(S) [place] 00 BY MOUTH Medical EVERY Branch TWELVE HOURS WITH MORNING AND EVENING MEALS. METFORMIN 2021-0 Yes [id number] TAKE ONE Univers 1,000 mg 5-13 (1) ity of tablet 00:00: TABLET(S) [place] 00 BY MOUTH Medical EVERY Branch TWELVE HOURS WITH MORNING AND EVENING MEALS. METFORMIN 2021-0 2022- No [id number] TAKE ONE Univers 1,000 mg 5-13 04-06 (1) ity of tablet 00:00: 00:00 TABLET(S) [place] 00 :00 BY MOUTH Medical EVERY Branch TWELVE HOURS WITH MORNING AND EVENING MEALS. METFORMIN 2021-2022- No [id number] TAKE ONE Univers 1,000 mg 5-13 04-06 (1) ity of tablet 00:00: 00:00 TABLET(S) [place] 00 :00 BY MOUTH Medical EVERY Branch TWELVE HOURS WITH MORNING AND EVENING MEALS. METFORMIN 2021-0 3- No [id number] TAKE ONE Univers 1,000 mg 5-13 04-06 (1) ity of tablet 00:00: 00:00 TABLET(S) [place] 00 :00 BY MOUTH Medical EVERY Branch TWELVE HOURS WITH MORNING AND EVENING MEALS. METFORMIN 2021-0 3- No [id number] TAKE ONE Univers 1,000 mg 5-13 04-06 (1) ity of tablet 00:00: 00:00 TABLET(S) [place] 00 :00 BY MOUTH Medical EVERY Branch TWELVE HOURS WITH MORNING AND EVENING MEALS. doxycycline 2021-0 2022- No [id number] 100mg Take 1 Univers hyclate 100 1-27 07-25 tablet by it y of mg tablet 00:00: 00:00 mouth 2 [place] 00 :00 (two) Medical times Branch daily. cloNIDine 2021-0 Yes [id number] .2mg Take 1 U nivers 0.2 mg [...] (scale 7-10). Indication s: chronic pain cloNIDine 2021-0 Yes [id number] .2mg Take 1 U nivers 0.2 mg 1-14 tablet by ity of tablet 00:00: mouth (three) Medical times Branch daily as needed (Hypertens ion). Take 1 Mcdaniel TID PRN if BP >150/90 traMADoL 50 2021-0 Yes [id number] 50mg Take 1 Univ ers mg tablet 1-14 tablet by ity o f 00:00: mouth every 8 Medical (eight) Branch hours as needed for Pain (scale 7-10). Indication s: chronic pain cloNIDine 2021-0 Yes [id number] .2mg Take 1 U nivers 0.2 mg [...] (scale 7-10). Indication s: chronic pain cloNIDine 2021-0 Yes [id number] .2mg Take 1 U nivers 0.2 mg 1-14 tablet by ity of tablet 00:00: mouth 3 (three) Medical times Branch daily as needed (Hypertens ion). Take 1 Mcdaniel TID PRN if BP >150/90 cloNIDine 2021-0 Yes [id number] .2mg Take 1 U nivers 0.2 mg 1-14 tablet by ity of tablet 00:00: mouth (three) Medical times Branch daily as needed (Hypertens ion). Take 1 Mcdaniel TID PRN if BP >150/90 cloNIDine 2022-0 Yes [id number] .2mg Take 1 U nivers 0.2 mg 1-14 tablet by ity of tablet 00:00: mouth (three) Medical times Branch daily as needed (Hypertens ion). Take 1 Mcdaniel TID PRN if BP >150/90 cloNIDine 2022-0 Yes [id number] .2mg Take 1 U nivers 0.2 mg 1-14 tablet by ity of tablet 00:00: mouth (three) Medical times Branch daily as needed (Hypertens ion). Take 1 Mcdaniel TID PRN if BP >150/90 cloNIDine 2022-0 Yes [id number] .2mg Take 1 U nivers 0.2 mg 1-14 tablet by ity of tablet 00:00: mouth (three) Medical times Branch daily as needed (Hypertens ion). Take 1 Mcdaniel TID PRN if BP >150/90 cloNIDine 2022-0 Yes [id number] .2mg Take 1 U nivers 0.2 mg 1-14 tablet by ity of tablet 00:00: mouth (three) Medical times Branch daily as needed (Hypertens ion). Take 1 Mcdaniel TID PRN if BP >150/90 cloNIDine 2022-0 Yes [id number] .2mg Take 1 U nivers 0.2 mg 1-14 tablet by ity of tablet 00:00: mouth (three) Medical times Branch daily as needed (Hypertens ion). Take 1 Mcdaniel TID PRN if BP >150/90 cloNIDine 2022-0 Yes [id number] .2mg Take 1 U nivers 0.2 mg 1-14 tablet by ity of tablet 00:00: mouth (three) Medical times Branch daily as needed (Hypertens ion). Take 1 Mcdaniel TID PRN if BP >150/90 cloNIDine 2022-0 Yes [id number] .2mg Take 1 U nivers 0.2 mg 1-14 tablet by ity of tablet 00:00: mouth (three) Medical times Branch daily as needed (Hypertens ion). Take 1 Mcdaniel TID PRN if BP >150/90 cloNIDine 2022-0 Yes [id number] .2mg Take 1 U nivers 0.2 mg 1-14 tablet by ity of tablet 00:00: mouth 3 (three) Medical times Branch daily as needed (Hypertens ion). Take 1 Mcdaniel TID PRN if BP >150/90 cloNIDine 2022-0 Yes [id number] .2mg Take 1 U nivers 0.2 mg 1-14 tablet by ity of tablet 00:00: mouth 3 (three) Medical times Branch daily as needed (Hypertens ion). Take 1 Mcdaniel TID PRN if BP >150/90 cloNIDine 2022-0 Yes [id number] .2mg Take 1 U nivers 0.2 mg 1-14 tablet by ity of tablet 00:00: mouth [place] (three) Medical times Branch daily as needed (Hypertens ion). Take 1 Mcdaniel TID PRN if BP >150/90 cloNIDine 2022-0 Yes [id number] .2mg Take 1 U nivers 0.2 mg 1-14 tablet by ity of tablet 00:00: mouth [place] (three) Medical times Branch daily as needed (Hypertens ion). Take 1 Mcdaniel TID PRN if BP >150/90 cloNIDine 2022-0 2023- No [id number] .2mg Take 1 Univers 0.2 mg 1-14 04-06 tablet by ity of tablet 00:00: 00:00 mouth 3 [place] 00 :00 (three) Medical times Branch daily as needed (Hypertens ion). Take 1 Mcdaniel TID PRN if BP >150/90 cloNIDine 2022-0 2023- No [id number] .2mg Take 1 Univers 0.2 mg 1-14 04-06 tablet by ity of tablet 00:00: 00:00 mouth 3 [place] 00 :00 (three) Medical times Branch daily as needed (Hypertens ion). Take 1 Mcdaniel TID PRN if BP >150/90 cloNIDine 2022-0 2023- No [id number] .2mg Take 1 Univers 0.2 mg 1-14 04-06 tablet by ity of tablet 00:00: 00:00 mouth 3 [place] 00 :00 (three) Medical times Branch daily as needed (Hypertens ion). Take 1 Mcdaniel TID PRN if BP >150/90 cloNIDine 2022- No [id number] .2mg Take 1 Univers 0.2 mg 08-28-06 tablet by ity of tablet 00:00: 00:00 mouth 3 [place] 00 :00 (three) Medical times Branch daily as needed (Hypertens ion). Take 1 Mcdaniel TID PRN if BP >150/90 traMADoL 50 2021- No [id number] 50mg Take 1 Uni vers mg tablet 08-2830 tablet by ity of 00:00: 00:00 mouth [place] 00 :00 every 8 Medical (eight) Branch hours as needed for Pain (scale 7-10). Indication s: chronic pain traMADoL 50 No [id number] 50mg Take 1 Uni vers mg tablet 08-28 tablet by ity of 00:00: 00:00 mouth [place] 00 :00 every 8 Medical (eight) Branch hours as needed for Pain (scale 7-10). Indication s: chronic pain glipiZIDE 2021- No [id number] TAKE ONE Univers 10 mg 08-28 (1) ity of tablet 00:00: 00:00 TABLET(S) [place] 00 :00 BY MOUTH Medical ONCE A DAY Branch BEFORE MEALS. atorvastati 2021- No [id number] 40mg Take 1 Univers n 40 mg 08-28 tablet by ity of tablet 00:00: 00:00 mouth at [place] 00 :00 bedtime. Medical Branch nicotine 21 2021- No [id number] 1{patch Apply 1 Univers mg/24 hr 08-28 } Patch to ity of patch 00:00: 00:00 area(s) [place] 00 :00 daily. Medical Apply 21mg Branch patch daily x 6 weeks; then apply 14mg patch daily x 2 weeks; then apply 7mg patch daily x 2 weeks. Stop smoking on initiation of therapy nicotine 7 2021- No [id number] 1{patch Apply 1 Univers mg/24 hr 08-2825 } Patch to ity of patch 00:00: 00:00 area(s) [place] 00 :00 every 24 Medical (twenty-fo Branch ur) hours. Apply 21mg patch daily x 6 weeks; then apply 14mg patch daily x 2 weeks; then apply 7mg patch daily x 2 weeks. Stop smoking on initiation of therapy nicotine 14 2021- No [id number] 1{patch Apply 1 Univers mg/24 hr 08-28 } Patch to ity of patch 00:00: 00:00 area(s) [place] 00 :00 every 24 Medical (twenty- Branch ur) hours. Apply 21mg patch daily x 6 weeks; then apply 14mf patch daily x 2 weeks; then apply 7mg patch daily x 2 weeks. Stop smoking on initiation of therapy FLUoxetine 2020-08 Yes [id number] 20mg Take 1 U nivers 20 mg 0-01 capsule by ity of capsule 00:00: mouth [place] 00 daily. Medical Branch traZODone 2020-08 Yes [id number] 50mg Take 1 Uni vers 50 mg 0-01 tablet by ity of tablet 00:00: mouth at [place] 00 bedtime. Medical Branch FLUoxetine 2020-08 Yes [id number] 20mg Take 1 U nivers 20 mg 0-01 capsule by ity of capsule 00:00: mouth [place] 00 daily. Medical Branch traZODone 2020-08 Yes [id number] 50mg Take 1 Uni vers 50 mg 0-01 tablet by ity of tablet 00:00: mouth at [place] 00 bedtime. Medical Branch FLUoxetine 2020-08 Yes [id number] 20mg Take 1 U nivers 20 mg 0-01 capsule by ity of capsule 00:00: mouth [place] 00 daily. Medical Branch traZODone 2020-08 Yes [id number] 50mg Take 1 Uni vers 50 mg 0-01 tablet by ity of tablet 00:00: mouth at [place] 00 bedtime. Medical Branch FLUoxetine 2020-08- No [id number] 20mg Take 1 Univers 20 mg 0-01 11-30 capsule by ity of capsule 00:00: 00:00 mouth [place] 00 :00 daily. Medical Branch traZODone 2020-08- No [id number] 50mg Take 1 Un luis f 50 mg 0-01 11-30 tablet by ity of tablet 00:00: 00:00 mouth at [place] 00 :00 bedtime. Medical Branch FLUoxetine 2020-08- No [id number] 20mg Take 1 Univers 20 mg 0-01 11-30 capsule by ity of capsule 00:00: 00:00 mouth [place] 00 :00 daily. Medical Branch traZODone 2020-08- No [id number] 50mg Take 1 Un luis f 50 mg 0-08 25-30 tablet by ity of tablet 00:00: 00:00 mouth at [place] 00 :00 bedtime. Medical Branch amLODIPine- 2020-08- No [id number] 1{capsu Take 1 Univers benazepriL 0-08 21-25 le} capsule by it y of 10-40 mg 00:00: 00:00 mouth [place] per capsule 00 :00 daily. Medica l Branch terazosin 5 2020-08- No [id number] 5mg Take 1 Univers mg capsule 0-25 capsule by it y of 00:00: 00:00 mouth [place] 00 :00 every Medical evening. Branch triamterene 2020-08- No [id number] 1{tbl} Take 1 Univers -hydrochlor 0-08 21-25 tablet by it y of othiazid 00:00: 00:00 mouth [place] 37.5-25 mg 00 :00 daily. Medical tablet Branch aspirin 325 2020-08- No [id number] 325mg Take 1 Univers mg tablet 0-08 21-25 tablet by ity of 00:00: 00:00 mouth [place] 00 :00 daily with Medical breakfast. Branch carvediloL 2020-08- No [id number] 25mg Take 1 Univers 25 mg 0-08 21-25 tablet by ity of tablet 00:00: 00:00 mouth 2 [place] 00 :00 (two) Medical times Branch daily with meals. TAKE ONE (1) TABLET(S) BY MOUTH TWICE A DAY WITH FOOD. lipase-prot 2020-08- No [id number] 1{capsu Take 1 Univers ease-amylas 0- 07-25 le} capsule by i ty of e 00:00: 00:00 mouth 3 [place] 12,000-38,0 00 :00 (three) Medic al 00 -60,000 times Branch unit daily with capsule meals. LORazepam 2 2021- No 2mg Take 1 Uni vers mg tablet 09-02-25 tablet by ity of 00:00: 00:00 mouth 2 [place] 00 :00 (two) Medical times Branch daily. Take one tablet 30 minutes before MRI, if needed, take 2nd tablet when arriving for MRI. Miscellaneo 2019-08- No [id number] [address] 08-18 Dispense ity of Supply Kit 00:00: 00:00 blood [place] 00 :00 pressure Medical cuff (any Branch brand), take BP at home BID Immunizations Ordered Filled Date Status Comments Source Immunization Name Immunization Name Pneumococcal 20 2022-11-18 Completed Universit y of Conjugate, PCV20 00:00:00 [facility] dical (Prevnar 20) Branch SARS-COV-2 COVID-19 2022-11-18 Completed Unive rsity of VACCINE 12 YRS+, 00:00:00 [facility] dical BIVALENT 0.5ML, IM, Branc h (MODERNA BOOSTER) Pneumococcal 20 2022-11-18 Completed Universit y of Conjugate, PCV20 00:00:00 [facility] dical (Prevnar 20) Branch SARS-COV-2 COVID-19 2022-11-18 Completed Unive rsity of VACCINE 12 YRS+, 00:00:00 [facility] dical BIVALENT 0.5ML, IM, Branc h (MODERNA BOOSTER) Pneumococcal 20 2022-11-18 Completed Universit y of Conjugate, PCV20 00:00:00 [facility] dical (Prevnar 20) Branch SARS-COV-2 COVID-19 2022-11-18 Completed Unive rsity of VACCINE 12 YRS+, 00:00:00 [facility] dical BIVALENT 0.5ML, IM, Branc h (MODERNA BOOSTER) Pneumococcal 20 2022-11-18 Completed Universit y of Conjugate, PCV20 00:00:00 [facility] dical (Prevnar 20) Branch SARS-COV-2 COVID-19 2022-11-18 Completed Unive rsity of VACCINE 12 YRS+, 00:00:00 [facility] dical BIVALENT 0.5ML, IM, Branc h (MODERNA BOOSTER) Pneumococcal 20 2022-11-18 Completed Universit y of Conjugate, PCV20 00:00:00 [facility] dical (Prevnar 20) Branch SARS-COV-2 COVID-19 2022-11-18 [...] [place] [facility] Branch 65+ SARS-COV-2 COVID-19 2021-08-21 Completed Unive rsity of VACCINE - (MODERNA) 00:00:00 [facility] SARS-COV-2 COVID-19 2021-08-21 Completed Unive rsity of VACCINE - (MODERNA) 00:00:00 [facility] SARS-COV-2 COVID-19 2021-08-21 Completed Unive rsity of VACCINE - (MODERNA) 00:00:00 [facility] SARS-COV-2 COVID-19 2021-08-21 Completed Unive rsity of VACCINE - (MODERNA) 00:00:00 [facility] SARS-COV-2 COVID-19 2021-08-21 Completed Unive rsity of VACCINE - (MODERNA) 00:00:00 [facility] SARS-COV-2 COVID-19 2021-08-21 Completed Unive rsity of VACCINE - (MODERNA) 00:00:00 [facility] SARS-COV-2 COVID-19 2021-08-21 Completed Unive rsity of VACCINE - (MODERNA) 00:00:00 [facility] SARS-COV-2 COVID-19 2021-08-21 Completed Unive rsity of VACCINE - (MODERNA) 00:00:00 [facility] SARS-COV-2 COVID-19 2021-08-21 Completed Unive rsity of VACCINE - (MODERNA) 00:00:00 [facility] SARS-COV-2 COVID-19 2021-08-21 Completed Unive rsity of VACCINE - (MODERNA) 00:00:00 [facility] [place] Branch SARS-COV-2 COVID-19 2021-08-21 Completed Unive rsity of VACCINE - (MODERNA) 00:00:00 [facility] SARS-COV-2 COVID-19 2021-08-21 Completed Unive rsity of VACCINE - (MODERNA) 00:00:00 [facility] SARS-COV-2 COVID-19 2021-08-21 Completed Unive rsity of VACCINE - (MODERNA) 00:00:00 [facility] SARS-COV-2 COVID-19 2021-08-21 Completed Unive rsity of VACCINE - (MODERNA) 00:00:00 [facility] SARS-COV-2 COVID-19 2021-08-21 Completed Unive rsity of VACCINE - (MODERNA) 00:00:00 [facility] SARS-COV-2 COVID-19 2021-08-21 Completed Unive rsity of VACCINE - (MODERNA) 00:00:00 [facility] SARS-COV-2 COVID-19 2021-08-21 Completed Unive rsity of VACCINE - (MODERNA) 00:00:00 [facility] SARS-COV-2 COVID-19 2021-08-21 Completed Unive rsity of VACCINE - (MODERNA) 00:00:00 [facility] SARS-COV-2 COVID-19 2021-08-21 Completed Unive rsity of VACCINE - (MODERNA) 00:00:00 [facility] Branch SARS-COV-2 COVID-19 2021-08-21 Completed Unive rsity of VACCINE - (MODERNA) 00:00:00 [facility] SARS-COV-2 COVID-19 2021-08-21 Completed Unive rsity of VACCINE - (MODERNA) 00:00:00 [facility] Branch SARS-COV-2 COVID-19 2021-08-21 Completed Unive rsity of VACCINE - (MODERNA) 00:00:00 [facility] SARS-COV-2 COVID-19 2021-08-21 Completed Unive rsity of VACCINE - (MODERNA) 00:00:00 [facility] SARS-COV-2 COVID-19 2021-08-21 Completed Unive rsity of VACCINE - (MODERNA) 00:00:00 [facility] SARS-COV-2 COVID-19 2021-08-21 Completed Unive rsity of VACCINE - (MODERNA) 00:00:00 [facility] SARS-COV-2 COVID-19 2021-08-21 Completed Unive rsity of VACCINE - (MODERNA) 00:00:00 [facility] SARS-COV-2 COVID-19 2021-08-21 Completed Unive rsity of VACCINE - (MODERNA) 00:00:00 [facility] SARS-COV-2 COVID-19 2021-08-21 Completed Unive rsity of VACCINE - (MODERNA) 00:00:00 [facility] SARS-COV-2 COVID-19 2021-08-21 Completed Unive rsity of VACCINE - (MODERNA) 00:00:00 [facility] SARS-COV-2 COVID-19 2021-08-21 Completed Unive rsity of VACCINE - (MODERNA) 00:00:00 [facility] SARS-COV-2 COVID-19 2021-08-21 Completed Unive rsity of VACCINE - (MODERNA) 00:00:00 [facility] SARS-COV-2 COVID-19 2021-08-21 Completed Unive rsity of VACCINE - (MODERNA) 00:00:00 [facility] SARS-COV-2 COVID-19 2021-08-21 Completed Unive rsity of VACCINE - (MODERNA) 00:00:00 [facility] SARS-COV-2 COVID-19 2021-08-21 Completed Unive rsity of VACCINE - (MODERNA) 00:00:00 [facility] SARS-COV-2 COVID-19 2020-12-17 Completed Unive rsity of MODERNA VACCINE 00:00:00 [place] [facility] SARS-COV-2 COVID-19 2020-12-17 Completed Unive rsity of [...] rsity of MODERNA 12+ YRS 00:00:00 [place] [facility] ical VACCINE Branch SARS-COV-2 COVID-19 2020-11-19 Completed Unive rsity of MODERNA 12+ YRS 00:00:00 [facility] [place] [facility] ical VACCINE Branch TDAP 2020-07-02 Completed University of 00:00:00 [facility] Pneumococcal 2020-07-02 Completed University o f Polysaccharide, 00:00:00 [facility] [place] [facility] ical PPSV23 (PNEUMOVAX) Branch Influenza Virus 2020-07-02 Completed Universit y of Vaccine Quad .5 mL 00:00:00 [facility] 6+ MO Branch TDAP 2020-07-02 Completed University of 00:00:00 [facility] Pneumococcal 2020-07-02 Completed University o f Polysaccharide, 00:00:00 [facility] [place] [facility] ical PPSV23 (PNEUMOVAX) Branch Influenza Virus 2020-07-02 Completed Universit y of Vaccine Quad .5 mL 00:00:00 [facility] 6+ MO Branch TDAP 2020-07-02 Completed University of 00:00:00 [facility] Pneumococcal 2020-07-02 Completed University o f Polysaccharide, 00:00:00 [facility] [place] [facility] ical PPSV23 (PNEUMOVAX) Branch Influenza Virus 2020-07-02 Completed Universit y of Vaccine Quad .5 mL 00:00:00 [facility] 6+ MO Branch TDAP 2020-07-02 Completed University of 00:00:00 [facility] Pneumococcal 2020-07-02 Completed University o f Polysaccharide, 00:00:00 [place] [facility] ical PPSV23 (PNEUMOVAX) Branch Influenza Virus 2020-07-02 Completed Universit y of Vaccine Quad .5 mL 00:00:00 [facility] 6+ MO Branch TDAP 2020-07-02 Completed University of 00:00:00 [facility] Pneumococcal 2020-07-02 Completed University o f Polysaccharide, 00:00:00 [facility] [place] [facility] ical PPSV23 (PNEUMOVAX) Branch Influenza Virus 2020-07-02 Completed Universit y of Vaccine Quad .5 mL 00:00:00 [facility] 6+ MO Branch TDAP 2020-07-02 Completed University of 00:00:00 [facility] Pneumococcal 2020-07-02 Completed University o f Polysaccharide, 00:00:00 [place] Med ical PPSV23 (PNEUMOVAX) Branch Influenza Virus 2020-07-02 Completed Universit y of Vaccine Quad .5 mL 00:00:00 [facility] 6+ MO Branch TDAP 2020-07-02 Completed University of 00:00:00 [facility] Pneumococcal 2020-07-02 Completed University o f Polysaccharide, 00:00:00 [place] Med ical PPSV23 (PNEUMOVAX) Branch Influenza Virus 2020-07-02 Completed Universit y of Vaccine Quad .5 mL 00:00:00 [facility] 6+ MO Branch TDAP 2020-07-02 Completed University of 00:00:00 [facility] Pneumococcal 2020-07-02 Completed University o f Polysaccharide, 00:00:00 [place] Med ical PPSV23 (PNEUMOVAX) Branch Influenza Virus 2020-07-02 Completed Universit y of Vaccine Quad .5 mL 00:00:00 [facility] 6+ MO Branch TDAP 2020-07-02 Completed University of 00:00:00 [facility] Pneumococcal 2020-07-02 Completed University o f Polysaccharide, 00:00:00 [place] Med ical PPSV23 (PNEUMOVAX) Branch Influenza Virus 2020-07-02 Completed Universit y of Vaccine Quad .5 mL 00:00:00 [facility] 6+ MO Branch TDAP 2020-07-02 Completed University of 00:00:00 [facility] Pneumococcal 2020-07-02 Completed University o f Polysaccharide, 00:00:00 [place] Med ical PPSV23 (PNEUMOVAX) Branch Influenza Virus 2020-07-02 Completed Universit y of Vaccine Quad .5 mL 00:00:00 [facility] 6+ MO Branch TDAP 2020-07-02 Completed University of 00:00:00 [facility] Pneumococcal 2020-07-02 Completed University o f Polysaccharide, 00:00:00 [place] Med ical PPSV23 (PNEUMOVAX) Branch Influenza Virus 2020-07-02 Completed Universit y of Vaccine Quad .5 mL 00:00:00 [facility] 6+ MO Branch TDAP 2020-07-02 Completed University of 00:00:00 [facility] Pneumococcal 2020-07-02 Completed University o f Polysaccharide, 00:00:00 [place] Med ical PPSV23 (PNEUMOVAX) Branch Influenza Virus 2020-07-02 Completed Universit y of Vaccine Quad .5 mL 00:00:00 [facility] 6+ MO Branch TDAP 2020-07-02 Completed University of 00:00:00 [facility] Pneumococcal 2020-07-02 Completed University o f Polysaccharide, 00:00:00 [place] Med ical PPSV23 (PNEUMOVAX) Branch Influenza Virus 2020-07-02 Completed Universit y of Vaccine Quad .5 mL 00:00:00 [facility] 6+ MO Branch TDAP 2020-07-02 Completed University of 00:00:00 [facility] Pneumococcal 2020-07-02 Completed University o f Polysaccharide, 00:00:00 [place] Med ical PPSV23 (PNEUMOVAX) Branch Influenza Virus 2020-07-02 Completed Universit y of Vaccine Quad .5 mL 00:00:00 [facility] 6+ MO Branch TDAP 2020-07-02 Completed University of 00:00:00 [facility] Pneumococcal 2020-07-02 Completed University o f Polysaccharide, 00:00:00 [place] Med ical PPSV23 (PNEUMOVAX) Branch Influenza Virus 2020-07-02 Completed Universit y of Vaccine Quad .5 mL 00:00:00 [facility] 6+ MO Branch TDAP 2020-07-02 Completed University of 00:00:00 [facility] Pneumococcal 2020-07-02 Completed University o f Polysaccharide, 00:00:00 [place] Med ical PPSV23 (PNEUMOVAX) Branch Influenza Virus 2020-07-02 Completed Universit y of Vaccine Quad .5 mL 00:00:00 [facility] 6+ MO Branch TDAP 2020-07-02 Completed University of 00:00:00 [facility] Pneumococcal 2020-07-02 Completed University o f Polysaccharide, 00:00:00 [place] [facility] PPSV23 (PNEUMOVAX) Branch Influenza Virus 2020-07-02 Completed Universit y of Vaccine Quad .5 mL 00:00:00 [facility] 6+ MO Branch TDAP 2020-07-02 Completed [facility] of 00:00:00 [facility] Pneumococcal 2020-07-02 Completed University o f Polysaccharide, 00:00:00 [place] [facility] PPSV23 (PNEUMOVAX) Branch Influenza Virus 2020-07-02 Completed Universit y of Vaccine Quad .5 mL 00:00:00 [facility] IM 6+ MO Branch TDAP 2020-07-02 Completed University of 00:00:00 [facility] Pneumococcal 2020-07-02 Completed University o f Polysaccharide, 00:00:00 [place] [facility] PPSV23 (PNEUMOVAX) Branch Influenza Virus 2020-07-02 Completed [facility]it y of Vaccine Quad .5 mL 00:00:00 [facility] 6+ MO Branch TDAP 2020-07-02 Completed [facility] of 00:00:00 [facility] Pneumococcal 2020-07-02 Completed University o f Polysaccharide, 00:00:00 [place] [facility] PPSV23 (PNEUMOVAX) Branch Influenza Virus 2020-07-02 Completed [facility]it y of Vaccine Quad .5 mL 00:00:00 [facility] 6+ MO Branch TDAP 2020-07-02 Completed [facility] of 00:00:00 [facility] Pneumococcal 2020-07-02 Completed University o f Polysaccharide, 00:00:00 [place] [facility] PPSV23 (PNEUMOVAX) Branch Influenza Virus 2020-07-02 Completed [facility]it y of Vaccine Quad .5 mL 00:00:00 [facility] 6+ MO Branch TDAP 2020-07-02 Completed [facility] of 00:00:00 [facility] Pneumococcal 2020-07-02 Completed University o f Polysaccharide, 00:00:00 [place] [facility] PPSV23 (PNEUMOVAX) Branch Influenza Virus 2020-07-02 Completed [facility]it y of Vaccine Quad .5 mL 00:00:00 [facility] 6+ MO Branch TDAP 2020-07-02 Completed [facility] of 00:00:00 [facility] Pneumococcal 2020-07-02 Completed University o f Polysaccharide, 00:00:00 [place] [facility] PPSV23 (PNEUMOVAX) Branch Influenza Virus 2020-07-02 Completed [facility]it y of Vaccine Quad .5 mL 00:00:00 [facility] 6+ MO Branch TDAP 2020-07-02 Completed [facility] of 00:00:00 [facility] Pneumococcal 2020-07-02 Completed University o f Polysaccharide, 00:00:00 [place] [facility] PPSV23 (PNEUMOVAX) Branch Influenza Virus 2020-07-02 Completed [facility]it y of Vaccine Quad .5 mL 00:00:00 [facility] 6+ MO Branch TDAP 2020-07-02 Completed [facility] of 00:00:00 [facility] Pneumococcal 2020-07-02 Completed University o f Polysaccharide, 00:00:00 [place] [facility] PPSV23 (PNEUMOVAX) Branch Influenza Virus 2020-07-02 Completed [facility]it y of Vaccine Quad .5 mL 00:00:00 [facility] 6+ MO Branch TDAP 2020-07-02 Completed [facility] of 00:00:00 [facility] Pneumococcal 2020-07-02 Completed University o f Polysaccharide, 00:00:00 [place] [facility] PPSV23 (PNEUMOVAX) Branch Influenza Virus 2020-07-02 Completed [facility]it y of Vaccine Quad .5 mL 00:00:00 [facility] 6+ MO Branch TDAP 2020-07-02 Completed [facility] of 00:00:00 [facility] Pneumococcal 2020-07-02 Completed University o f Polysaccharide, 00:00:00 [place] [facility] PPSV23 (PNEUMOVAX) Branch Influenza Virus 2020-07-02 Completed [facility]it y of Vaccine Quad .5 mL 00:00:00 [facility] 6+ MO Branch TDAP 2020-07-02 Completed [facility] of 00:00:00 [facility] Pneumococcal 2020-07-02 Completed University o f Polysaccharide, 00:00:00 [place] [facility] PPSV23 (PNEUMOVAX) Branch Influenza Virus 2020-07-02 Completed [facility]it y of Vaccine Quad .5 mL 00:00:00 [facility] 6+ MO Branch TDAP 2020-07-02 Completed [facility] of 00:00:00 [facility] Pneumococcal 2020-07-02 Completed University o f Polysaccharide, 00:00:00 [place] [facility] PPSV23 (PNEUMOVAX) Branch Influenza Virus 2020-07-02 Completed [facility]it y of Vaccine Quad .5 mL 00:00:00 [facility] 6+ MO Branch TDAP 2020-07-02 Completed [facility] of 00:00:00 [facility] Pneumococcal 2020-07-02 Completed University o f Polysaccharide, 00:00:00 [place] [facility] PPSV23 (PNEUMOVAX) Branch Influenza Virus 2020-07-02 Completed [facility]it y of Vaccine Quad .5 mL 00:00:00 [facility] 6+ MO Branch TDAP 2020-07-02 Completed [facility] of 00:00:00 [facility] Pneumococcal 2020-07-02 Completed University o f Polysaccharide, 00:00:00 [place] [facility] PPSV23 (PNEUMOVAX) Branch Influenza Virus 2020-07-02 Completed [facility]it y of Vaccine Quad .5 mL 00:00:00 [facility] 6+ MO Branch TDAP 2020-07-02 Completed [facility] of 00:00:00 [facility] Pneumococcal 2020-07-02 Completed University o f Polysaccharide, 00:00:00 [place] [facility] PPSV23 (PNEUMOVAX) Branch Influenza Virus 2020-07-02 Completed [facility]it y of Vaccine Quad .5 mL 00:00:00 [facility] 6+ MO Branch TDAP 2020-07-02 Completed [facility] of 00:00:00 [facility] Pneumococcal 2020-07-02 Completed University o f Polysaccharide, 00:00:00 [place] [facility] PPSV23 (PNEUMOVAX) Branch Influenza Virus 2020-07-02 Completed [facility]it y of Vaccine Quad .5 mL 00:00:00 [facility] 6+ MO Branch TDAP 2020-07-02 Completed [facility] of 00:00:00 [facility] Pneumococcal 2020-07-02 Completed University o f Polysaccharide, 00:00:00 [place] [facility] PPSV23 (PNEUMOVAX) Branch Influenza Virus 2020-07-02 Completed [facility]it y of Vaccine Quad .5 mL 00:00:00 [facility] 6+ MO Branch TDAP 2020-07-02 Completed [facility] of 00:00:00 [facility] Pneumococcal 2020-07-02 Completed University o f Polysaccharide, 00:00:00 [place] [facility] PPSV23 (PNEUMOVAX) Branch Influenza Virus 2020-07-02 Completed [facility]it y of Vaccine Quad .5 mL 00:00:00 [facility] 6+ MO Branch TDAP 2020-07-02 Completed [facility] of 00:00:00 [facility] Pneumococcal 2020-07-02 Completed University o f Polysaccharide, 00:00:00 [place] [facility] PPSV23 (PNEUMOVAX) Branch Influenza Virus 2020-07-02 Completed [facility]it y of Vaccine Quad .5 mL 00:00:00 [facility] 6+ MO Branch TDAP 2020-07-02 Completed [facility] of 00:00:00 [facility] Pneumococcal 2020-07-02 Completed University o f Polysaccharide, 00:00:00 [place] [facility] PPSV23 (PNEUMOVAX) Branch Influenza Virus 2020-07-02 Completed [facility]it y of Vaccine Quad .5 mL 00:00:00 [facility] 6+ MO Branch TDAP 2020-07-02 Completed [facility] of 00:00:00 [facility] Pneumococcal 2020-07-02 Completed University o f Polysaccharide, 00:00:00 [place] [facility] PPSV23 (PNEUMOVAX) Branch Influenza Virus 2020-07-02 Completed [facility]it y of Vaccine Quad .5 mL 00:00:00 [facility] 6+ MO Branch TDAP 2020-07-02 Completed [facility] of 00:00:00 [facility] Pneumococcal 2020-07-02 Completed University o f Polysaccharide, 00:00:00 [place] [facility] PPSV23 (PNEUMOVAX) Branch Influenza Virus 2020-07-02 Completed [facility]it y of Vaccine Quad .5 mL 00:00:00 [facility] 6+ MO Branch TDAP 2020-07-02 Completed [facility] of 00:00:00 [facility] Pneumococcal 2020-07-02 Completed University o f Polysaccharide, 00:00:00 [place] [facility] PPSV23 (PNEUMOVAX) Branch Influenza Virus 2020-07-02 Completed [facility]it y of Vaccine Quad .5 mL 00:00:00 [facility] 6+ MO Branch TDAP 2020-07-02 Completed [facility] of 00:00:00 [facility] Pneumococcal 2020-07-02 Completed University o f Polysaccharide, 00:00:00 [place] [facility] PPSV23 (PNEUMOVAX) Branch Influenza Virus 2020-07-02 Completed [facility]it y of Vaccine Quad .5 mL 00:00:00 [facility] 6+ MO Branch TDAP 2020-07-02 Completed [facility] of 00:00:00 [facility] Pneumococcal 2020-07-02 Completed University o f Polysaccharide, 00:00:00 [place] [facility] PPSV23 (PNEUMOVAX) Branch Influenza Virus 2020-07-02 Completed [facility]it y of Vaccine Quad .5 mL 00:00:00 [facility] 6+ MO Branch TDAP 2020-07-02 Completed [facility] of 00:00:00 [facility] Pneumococcal 2020-07-02 Completed University o f Polysaccharide, 00:00:00 [place] [facility] PPSV23 (PNEUMOVAX) Branch Influenza Virus 2020-07-02 Completed Universit y of Vaccine Quad .5 mL 00:00:00 [facility] 6+ MO Branch TDAP 2020-07-02 Completed University of 00:00:00 [facility] Pneumococcal 2020-07-02 Completed University o f Polysaccharide, 00:00:00 [place] [facility] PPSV23 (PNEUMOVAX) Branch Influenza Virus 2020-07-02 Completed Universit y of Vaccine Quad .5 mL 00:00:00 [facility] 6+ MO Branch TDAP 2020-07-02 Completed University of 00:00:00 [facility] Pneumococcal 2020-07-02 Completed University o f Polysaccharide, 00:00:00 [place] [facility] PPSV23 (PNEUMOVAX) Branch Influenza Virus 2020-07-02 Completed [facility]it y of Vaccine Quad .5 mL 00:00:00 [facility] 6+ MO Branch TDAP 2020-07-02 Completed University of 00:00:00 [facility] Pneumococcal 2020-07-02 Completed University o f Polysaccharide, 00:00:00 [place] [facility] PPSV23 (PNEUMOVAX) Branch Influenza Virus 2020-07-02 Completed Universit y of Vaccine Quad .5 mL 00:00:00 [facility] 6+ MO Branch TDAP 2020-07-02 Completed University of 00:00:00 [facility] Pneumococcal 2020-07-02 Completed University o f Polysaccharide, 00:00:00 [place] [facility] PPSV23 (PNEUMOVAX) Branch Influenza Virus 2020-07-02 Completed Universit y of Vaccine Quad .5 mL 00:00:00 [facility] 6+ MO Branch TDAP 2020-07-02 Completed University of 00:00:00 [facility] Pneumococcal 2020-07-02 Completed University o f Polysaccharide, 00:00:00 [place] [facility] PPSV23 (PNEUMOVAX) Branch Influenza Virus 2020-07-02 Completed [facility]it y of Vaccine Quad .5 mL 00:00:00 [facility] 6+ MO Branch TDAP 2020-07-02 Completed [facility] of 00:00:00 [facility] Pneumococcal 2020-07-02 Completed University o f Polysaccharide, 00:00:00 [place] [facility] PPSV23 (PNEUMOVAX) Branch Influenza Virus 2020-07-02 Completed [facility]it y of Vaccine Quad .5 mL 00:00:00 [facility] 6+ MO Branch TDAP 2020-07-02 Completed [facility] of 00:00:00 [facility] Pneumococcal 2020-07-02 Completed University o f Polysaccharide, 00:00:00 [place] [facility] PPSV23 (PNEUMOVAX) Branch Influenza Virus 2020-07-02 Completed [facility]it y of Vaccine Quad .5 mL 00:00:00 [facility] 6+ MO Branch TDAP Unknown Completed University of [facility] Pneumococcal Unknown Completed University o f Polysaccharide, [place] [facility] PPSV23 (PNEUMOVAX) Branch Influenza Virus [...] Completed Unive rsity of VACCINE - (MODERNA) [facility] Pneumococcal 20 Unknown Completed Universit y of Conjugate, PCV20 [place] [facility] (Prevnar 20) Branch SARS-COV-2 COVID-19 Unknown Completed Unive rsity of VACCINE 12 YRS+, [place] [facility] BIVALENT 0.5ML, IM, Branc h (MODERNA-BLUE TOP) TDAP Unknown Completed [facility] Pneumococcal Unknown Completed University o f Polysaccharide, [facility] ical PPSV23 (PNEUMOVAX) Branch Influenza Virus Unknown [...] Completed Unive rsity of VACCINE - (MODERNA) [facility] Pneumococcal 20 Unknown Completed Universit y of Conjugate, PCV20 [place] [facility] (Prevnar 20) Branch SARS-COV-2 COVID-19 Unknown Completed Unive rsity of VACCINE 12 YRS+, [place] [facility] BIVALENT 0.5ML, IM, Branc h (MODERNA-BLUE TOP) TDAP Unknown Completed [facility] [place] Pneumococcal Unknown Completed University o f Polysaccharide, [...] Completed Unive rsity of VACCINE - (MODERNA) [place] [facility] Pneumococcal 20 Unknown Completed Universit y of Conjugate, PCV20 [place] [facility] (Prevnar 20) Branch SARS-COV-2 COVID-19 Unknown Completed Unive rsity of VACCINE 12 YRS+, [place] [facility] BIVALENT 0.5ML, IM, Branc h (MODERNA-BLUE TOP) TDAP Unknown Completed [facility] [place] Pneumococcal Unknown Completed University o f Polysaccharide, [facility] [place] [facility] ical PPSV23 (PNEUMOVAX) Branch Influenza Virus Unknown Completed Universit y of Vaccine Quad .5 mL [place] [facility] 6+ MO Branch (FLUZONE/FLULAVAL/F LUARIX) SARS-COV-2 COVID-19 Unknown Completed Unive rsity of MODERNA 12+ YRS [place] [facility] VACCINE Branch SARS-COV-2 COVID-19 Unknown Completed Unive rsity of MODERNA 12+ YRS [facility] [place] [facility] ical VACCINE Branch Influenza Virus Unknown Completed [facility] y of Vaccine,quad [place] [facility] Im,preserve Free Branch 65+ (FLUAD) SARS-COV-2 COVID-19 Unknown Completed Unive rsity of VACCINE - (MODERNA) [facility] Pneumococcal 20 Unknown Completed Universit y of Conjugate, PCV20 [place] [facility] (Prevnar 20) Branch SARS-COV-2 COVID-19 Unknown Completed Unive rsity of VACCINE 12 YRS+, [place] [facility] BIVALENT 0.5ML, IM, Branc h (MODERNA-BLUE TOP) TDAP Unknown Completed [facility] Pneumococcal Unknown Completed University o f Polysaccharide, [facility] ical PPSV23 (PNEUMOVAX) Branch Influenza Virus Unknown Completed [facility]it y of Vaccine Quad .5 mL [place] [facility] IM 6+ MO Branch (FLUZONE/FLULAVAL/F LUARIX) SARS-COV-2 COVID-19 Unknown Completed Unive rsity of MODERNA 12+ YRS [place] [facility] VACCINE Branch SARS-COV-2 COVID-19 Unknown Completed Unive rsity of MODERNA 12+ YRS [place] [facility] VACCINE Branch Influenza Virus Unknown Completed [facility] of Vaccine,quad [place] [facility],preserve Free Branch 65+ (FLUAD) SARS-COV-2 COVID-19 Unknown Completed Unive rsity of VACCINE - (MODERNA) [facility] Pneumococcal 20 Unknown Completed Universit y of Conjugate, PCV20 [place] [facility] (Prevnar 20) Branch SARS-COV-2 COVID-19 Unknown Completed Unive rsity of VACCINE 12 YRS+, [place] [facility] BIVALENT 0.5ML, IM, Branc h (MODERNA-BLUE TOP) TDAP Unknown Completed [facility] [place] Pneumococcal Unknown Completed University o f Polysaccharide, [facility] [place] [facility] ical PPSV23 (PNEUMOVAX) Branch Influenza Virus Unknown Completed [facility]it y of Vaccine Quad .5 mL [place] [facility] 6+ MO Branch (FLUZONE/FLULAVAL/F LUARIX) SARS-COV-2 COVID-19 Unknown Completed Unive rsity of MODERNA 12+ YRS [place] [facility] VACCINE Branch SARS-COV-2 COVID-19 Unknown Completed Unive rsity of MODERNA 12+ YRS [facility] [place] [facility] ical VACCINE Branch Influenza Virus Unknown Completed [facility] y of Vaccine,quad [place] [facility] Im,preserve Free Branch 65+ (FLUAD) SARS-COV-2 COVID-19 Unknown Completed Unive rsity of VACCINE - (MODERNA) [facility] Pneumococcal 20 Unknown Completed Universit y of Conjugate, PCV20 [place] [facility] (Prevnar 20) Branch SARS-COV-2 COVID-19 Unknown Completed Unive rsity of VACCINE 12 YRS+, [place] [facility] BIVALENT 0.5ML, IM, Branc h (MODERNA-BLUE TOP) TDAP Unknown Completed [facility] [place] Pneumococcal Unknown Completed University o f Polysaccharide, [facility] [place] [facility] ical PPSV23 (PNEUMOVAX) Branch Influenza Virus Unknown Completed Universit y of Vaccine Quad .5 mL [place] [facility] 6+ MO Branch (FLUZONE/FLULAVAL/F LUARIX) SARS-COV-2 COVID-19 Unknown Completed Unive rsity of MODERNA 12+ YRS [facility] [place] [facility] ical VACCINE Branch SARS-COV-2 COVID-19 Unknown Completed Unive rsity of MODERNA 12+ YRS [place] [facility] VACCINE Branch Influenza Virus Unknown Completed [facility] of Vaccine,quad [place] [facility] Im,preserve Free Branch 65+ (FLUAD) SARS-COV-2 COVID-19 Unknown Completed Unive rsity of VACCINE - (MODERNA) [facility] Pneumococcal 20 Unknown Completed Universit y of Conjugate, PCV20 [facility] dical (Prevnar 20) Branch SARS-COV-2 COVID-19 Unknown Completed Unive rsity of VACCINE 12 YRS+, [facility] dical BIVALENT 0.5ML, IM, Branc h (MODERNA-BLUE TOP) Vital Signs Vital Name Observation Time Observation Value Comments Source HEIGHT 2023-05-17 18:30:00 165.1 cm WEIGHT 2023-05-17 18:30:00 84.823 kg HEIGHT 2023-05-17 18:30:00 165.1 cm WEIGHT 2023-05-17 18:30:00 84.823 kg HEIGHT 2023-05-17 18:30:00 165.1 cm WEIGHT 2023-05-17 18:30:00 84.823 kg Systolic blood 2023-05-13 16:11:00 173 mm[Hg] Univer sity of pressure [facility] Diastolic blood 2023-05-13 16:11:00 90 mm[Hg] Unive rsity of pressure [facility] Oxygen saturation in 2023-05-13 16:11:00 100 /min [facility] Arterial blood by [facility] Pulse oximetry Branch Respiratory rate 2023-05-13 16:06:00 14 /min [facility] Heart rate 2023-05-13 15:38:00 84 /min [facility] Body temperature 2023-05-13 15:33:00 36.17 [facility] 2023-05-09 23:30:00 165.1 cm [facility] Body weight 2023-05-09 23:30:00 80.74 kg [facility] BMI 2023-05-09 23:30:00 29.62 kg/m2 [facility] Systolic blood 2023-05-13 13:19:00 206 mm[Hg] Univer sity of pressure [facility] Diastolic blood 2023-05-13 13:19:00 100 mm[Hg] Unive rsity of pressure [facility] Heart rate 2023-05-13 12:12:00 67 /min [facility] [place] [facility] Body height 2023-05-09 23:30:00 165.1 cm [facility] [place] [facility] Body weight 2023-05-09 23:30:00 80.74 kg [facility] [place] [facility] BMI 2023-05-09 23:30:00 29.62 kg/m2 [facility] [place] [facility] Body height 2023-03-18 19:00:00 165.1 cm [facility] [place] [facility] Body weight 2023-03-18 19:00:00 79.833 kg [facility] [place] [facility] BMI 2023-03-18 19:00:00 29.29 kg/m2 [facility] [place] [facility] Systolic blood 2023-03-03 20:08:00 197 mm[Hg] Univer sity of pressure [facility] Diastolic blood 2023-03-03 20:08:00 143 mm[Hg] Unive rsity of pressure [facility] Heart rate 2023-03-03 20:01:00 68 /min [facility] [place] [facility] Body temperature 2023-03-03 20:01:00 36.06 Savi Univ ersity of [place] [facility] Respiratory rate 2023-03-03 20:01:00 18 /min Univ ersity of [place] [facility] Body height 2023-03-03 20:01:00 165.1 cm [facility] [place] [facility] Body weight 2023-03-03 20:01:00 80.06 kg [facility] [place] [facility] BMI 2023-03-03 20:01:00 29.37 kg/m2 [facility] [place] [facility] Oxygen saturation in 2023-03-03 20:01:00 100 /min University of Arterial blood by [facility] Pulse oximetry Branch Systolic blood 2023-02-01 14:37:00 127 mm[Hg] Univer sity of [facility] [place] Diastolic blood 2023-02-01 14:37:00 97 mm[Hg] Unive rsity of pressure [place] [facility] Respiratory rate 2023-02-01 14:37:00 18 /min Univ ersity of [facility] Oxygen saturation in 2023-02-01 14:37:00 97 /min University of Arterial blood by [facility] brad Pulse oximetry Branch Heart rate 2023-02-01 14:25:00 71 /min [facility]i ty [facility] [place] [facility] Body temperature 2023-02-01 14:07:00 36.11 Savi Univ ersity of [place] [facility] Body height 2023-01-24 20:45:00 165.1 cm [facility] [place] [facility] Body weight 2023-01-24 20:45:00 84.823 kg [facility] [place] [facility] BMI 2023-01-24 20:45:00 31.12 kg/m2 [facility] [place] [facility] Systolic blood 2023-02-01 14:37:00 127 mm[Hg] Univer sity of pressure [place] [facility] Diastolic blood 2023-02-01 14:37:00 97 mm[Hg] Unive rsity of pressure [facility] Respiratory rate 2023-02-01 14:37:00 18 /min Univ ersity of [place] [facility] Oxygen saturation in 2023-02-01 14:37:00 97 /min University of Arterial blood by [facility] Pulse oximetry Branch Heart rate 2023-02-01 14:25:00 71 /min [facility] [place] [facility] Body temperature 2023-02-01 14:07:00 36.11 Savi Univ ersity of [place] [facility] Body height 2023-01-24 20:45:00 165.1 cm [facility] [place] [facility] Body weight 2023-01-24 20:45:00 84.823 kg [facility] [place] [facility] BMI 2023-01-24 20:45:00 31.12 kg/m2 [facility] [place] [facility] Systolic blood 2022-12-03 15:05:00 147 mm[Hg] Univer sity of pressure [place] [facility] Diastolic blood 2022-12-03 15:05:00 94 mm[Hg] Unive rsity of pressure [facility] Heart rate 2022-12-03 15:05:00 71 /min [facility] [place] [facility] Oxygen saturation in 2022-12-03 15:05:00 98 /min University of Arterial blood by [facility] brad Pulse oximetry Branch Body temperature 2022-12-03 15:02:00 37.22 Savi Univ ersity of [place] [facility] Respiratory rate 2022-12-03 15:02:00 18 /min Univ ersity of [place] [facility] Body height 2022-12-03 15:02:00 165.1 cm [facility] [place] [facility] Body weight 2022-12-03 15:02:00 83.099 kg [facility] [place] [facility] BMI 2022-12-03 15:02:00 30.49 kg/m2 [facility] [place] [facility] Systolic blood 2022-11-18 19:43:00 165 mm[Hg] Univer sity of pressure [place] [facility] Diastolic blood 2022-11-18 19:43:00 89 mm[Hg] Unive rsity of pressure [facility] Heart rate 2022-11-18 19:42:00 77 /min [facility] [place] [facility] Respiratory rate 2022-11-18 19:42:00 18 /min Univ ersity of [place] [facility] Body height 2022-11-18 19:42:00 165.1 cm [facility] [place] [facility] Body weight 2022-11-18 19:42:00 84.823 kg [facility] [place] [facility] BMI 2022-11-18 19:42:00 31.12 kg/m2 [facility] [place] [facility] Oxygen saturation in 2022-11-18 19:42:00 96 /min University of Arterial blood by [employer] Pulse oximetry Branch Systolic blood 2022-11-18 19:37:00 165 mm[Hg] Univer sity of pressure [facility] Diastolic blood 2022-11-18 19:37:00 89 mm[Hg] Unive rsity of pressure [facility] Heart rate 2022-11-18 19:35:00 77 /min [facility] [place] [facility] Respiratory rate 2022-11-18 19:35:00 18 /min Univ ersity of [place] [facility] Body height 2022-11-18 19:35:00 165.1 cm [facility] [place] [facility] Body weight 2022-11-18 19:35:00 84.823 kg [facility] [place] [facility] BMI 2022-11-18 19:35:00 31.12 kg/m2 [facility] [place] [facility] Oxygen saturation in 2022-11-18 19:35:00 96 /min University of Arterial blood by [employer] Pulse oximetry Branch Systolic blood 2022-10-05 19:24:00 184 mm[Hg] Univer sity of pressure [place] [facility] Diastolic blood 2022-10-05 19:24:00 118 mm[Hg] Unive rsity of pressure [place] [facility] Heart rate 2022-10-05 19:24:00 62 /min [facility]i [facility] [place] [facility] Oxygen saturation in 2022-10-05 19:24:00 100 /min University of Arterial blood by [place] [employer] brad Pulse oximetry Branch Respiratory rate 2022-10-05 19:21:00 18 /min Univ ersity of [place] [facility] Body height 2022-10-05 19:21:00 165.1 cm [facility] [place] [facility] Body weight 2022-10-05 19:21:00 85.684 kg [facility] [place] [facility] BMI 2022-10-05 19:21:00 31.43 kg/m2 [facility] [place] [facility] Systolic blood 2022-08-04 19:53:00 168 mm[Hg] Univer sity of pressure [place] [facility] Diastolic blood 2022-08-04 19:53:00 103 mm[Hg] Unive rsity of pressure [place] [facility] Heart rate 2022-08-04 19:53:00 58 [...] 95 /min University of Arterial blood by [place] [facility] Pulse oximetry Branch Systolic blood 2022-07-14 14:52:00 169 mm[Hg] Univer sity of pressure [place] [facility] Diastolic blood 2022-07-14 14:52:00 98 mm[Hg] Unive rsity of pressure [place] [facility] Heart rate 2022-07-14 14:52:00 81 /min [facility] [place] [facility] Respiratory rate 2022-07-14 14:50:00 18 /min Univ ersity of [place] [facility] [place] Body height 2022-07-14 14:50:00 165.1 cm [facility] Body weight 2022-07-14 14:50:00 86.637 kg [facility] BMI 2022-07-14 14:50:00 31.78 kg/m2 [facility] Oxygen saturation in 2022-07-14 14:50:00 99 /min [facility] of Arterial blood by [facility] Pulse oximetry Branch Systolic blood 2022-03-08 20:18:00 178 mm[Hg] Univer sity of pressure [facility] Diastolic blood 2022-03-08 20:18:00 121 mm[Hg] Unive rsity of [facility] Heart rate 2022-03-08 20:17:00 78 /min [facility] Respiratory rate 2022-03-08 20:17:00 18 /min [facility] Body weight 2022-03-08 20:17:00 88.905 kg [facility] BMI 2022-03-08 20:17:00 32.62 kg/m2 [facility] Oxygen saturation in 2022-03-08 20:17:00 99 /min [facility] of Arterial blood by [facility] Pulse oximetry Branch Systolic blood 2023-05-20 12:01:00 133 mm[Hg] [facility] Diastolic blood 2023-05-20 12:01:00 81 mm[Hg] [facility] Heart rate 2023-05-20 12:01:00 67 /min [facility] Body temperature 2023-05-20 12:01:00 36.56 Savi [facility] Respiratory rate 2023-05-20 12:01:00 18 /min [facility] Oxygen saturation in 2023-05-20 12:01:00 98 /min [facility] Arterial blood by Medical nter Pulse oximetry Body height 2023-05-17 18:30:00 165.1 cm [facility] Body weight 2023-05-17 18:30:00 84.823 kg [facility] BMI 2023-05-17 18:30:00 31.12 kg/m2 [facility] Body height 2023-03-18 19:00:00 165.1 cm [facility] Body weight 2023-03-18 19:00:00 79.833 kg [facility] BMI 2023-03-18 19:00:00 29.29 kg/m2 [facility] Systolic blood 2023-03-03 20:08:00 197 mm[Hg] Univer sity [facility] Diastolic blood 2023-03-03 20:08:00 143 mm[Hg] Unive rsity [facility] Heart rate 2023-03-03 20:01:00 68 /min [facility] Body temperature 2023-03-03 20:01:00 36.06 Savi [facility] rate 2023-03-03 20:01:00 18 /min [facility] Oxygen saturation in 2023-03-03 20:01:00 100 /min [facility] Arterial blood by [facility] Pulse oximetry Branch Procedures Procedure Date / Time Performing Clinician Source Performed POCT-GLUCOSE METER 2023-05-20 11:04:00 Sierra [facility] POCT-GLUCOSE METER 2023-05-20 07:14:00 Esquivel [facility] BASIC METABOLIC PANEL 2023-05-20 05:42:00 Jordan Dawkins [facility] CBC W/PLT COUNT & AUTO 2023-05-20 05:42:00 Jordan Dawkins [facility] DIFFERENTIAL Center MAGNESIUM 2023-05-20 05:42:00 Jordan Dawkins [facility] PHOSPHORUS 2023-05-20 05:42:00 Jordan Dawkins [facility] CBC W/PLT COUNT & AUTO 2023-05-20 05:42:00 Jordan Dawkins [facility] POCT-GLUCOSE METER 2023-05-19 22:51:[address] [facility] MR BRAIN WITHOUT IV 2023-05-19 19:00:00 Thierry Villanueva [facility] 2D ECHO W/ DOPPLER 2023-05-19 15:56:00 Symone [facility] (CW/PW/COLOR) [employer] POCT-GLUCOSE METER 2023-05-19 15:51:[address] [facility] CT BRAIN WITHOUT IV 2023-05-19 14:00:46 Juancho [facility] POCT-GLUCOSE METER 2023-05-19 11:26:00 Yasemin Oreilly [facility] BASIC METABOLIC PANEL 2023-05-19 02:18:00 [facility] CBC W/PLT COUNT & AUTO 2023-05-19 02:18:00 [facility] MAGNESIUM 2023-05-19 02:18:[facility] 2023-05-19 02:18:00 [facility] CBC W/PLT COUNT & AUTO 2023-05-19 02:18:00 Symone [facility] CT BRAIN WITHOUT IV 2023-05-18 21:08:09 Juancho [facility] CAROTID DOPPLER 2023-05-18 21:06:47 [facility] POCT-GLUCOSE METER 2023-05-18 20:46:00 Denilson [facility] POCT-GLUCOSE METER 2023-05-18 17:33:00 Contreras [facility] CT BRAIN WITHOUT IV 2023-05-18 14:30:00 Thierry Villanuevap [facility] POCT-GLUCOSE METER 2023-05-18 11:57:00 Denilson [facility] POCT-GLUCOSE METER 2023-05-18 06:32:00 Contreras [facility] LIPID PANEL 2023-05-18 04:15:00 [facility] HEMOGLOBIN A1C 2023-05-18 04:15:00 [facility] BASIC METABOLIC PANEL 2023-05-18 04:15:00 Juancho [facility] CBC W/PLT COUNT & AUTO 2023-05-18 04:15:00 [facility] PROTHROMBIN TIME/INR 2023-05-18 04:15:00 [facility] MAGNESIUM 2023-05-18 04:15:00 Juancho [facility] PHOSPHORUS 2023-05-18 04:15:00 Juancho [facility] CBC W/PLT COUNT & AUTO 2023-05-18 04:15:00 [facility] DIFFERENTIAL [employer] ABORH, MANUAL 2023-05-17 20:26:00 Riya Moreno [facility] POCT-GLUCOSE METER 2023-05-17 20:20:00 Yasemin Oreilly I [facility] CBC W/PLT COUNT & AUTO 2023-05-17 19:21:00 [facility] HIGH SENSITIVITY 2023-05-17 19:21:00 [facility] TROPONIN I Center RPR 2023-05-17 19:21:00 [facility] COMPREHENSIVE METABOLIC 2023-05-17 19:21:00 [facility] PANEL Center TSH/FREE T4 IF INDICATED 2023-05-17 19:21:00 [facility] VITAMIN B12 2023-05-17 19:21:00 [facility] MAGNESIUM 2023-05-17 19:21:00 [facility] PHOSPHORUS 2023-05-17 19:21:00 [facility] TYPE AND SCREEN, 2023-05-17 19:21:00 [facility] AUTOMATED Center CBC W/PLT COUNT & AUTO 2023-05-17 19:21:00 John Whelan [facility] COLONOSCOPY 2023-05-13 13:35:00 Virginie Peña [facility] COLONOSCOPY (ENDO) 2023-05-13 13:31:31 Marco Church [facility] COLONOSCOPY (ENDO) 2023-05-13 13:31:31 Marco Church [facility] DAY SURGERY - ADC 2023-05-13 05:01:00 Doctor Unassigned, No Univ ersity of [facility] 2023-03-25 05:01:00 Doctor Unassigned, No Univ ersity of [facility]ERY [facility] 2023-03-25 05:01:00 Doctor Unassigned, No Univ ersity of [facility] COLONOSCOPY (ENDO) 2023-02-01 13:41:52 Marco Church [facility] COLONOSCOPY (ENDO) 2023-02-01 13:41:52 Marco Church [facility] COLONOSCOPY (ENDO) 2023-02-01 13:41:52 Marco Church [facility] COLONOSCOPY 2023-02-01 13:40:00 Virginie Peña [facility] COLONOSCOPY 2023-02-01 13:40:00 Virginie Peña [facility] POCT GLUCOSE (AUTOMATED) 2023-02-01 13:08:00 Virginie [facility] ([facility]OMATED) 2023-02-01 13:08:00 Virginie [facility] POCT GLUCOSE (AUTOMATED) 2023-02-01 13:08:00 [facility] 2023-02-01 05:01:00 Doctor Unassigned, No Univ ersity of [facility] 2023-02-01 05:01:00 Doctor Unassigned, No Univ ersity of [facility] VITAMIN B12, LEVEL 2022-11-18 20:41:00 Marco Church [facility] FREE T4 2022-11-18 20:41:00 Marco Church [facility] THYROID STIMULATING 2022-11-18 20:41:00 Marco Church [facility] HORMONE [facility] COMP. METABOLIC PANEL 2022-11-18 20:41:00 Marco Church [facility] ([id number]) [facility] LIPID PANEL 2022-11-18 20:41:00 Marco Church [facility] ([id number])(TOTAL [facility] CHOLESTEROL, TRIGLYCERIDES, HDL) CBC WITH DIFF 2022-11-18 20:41:00 Marco Church [facility] GLYCOSYLATED HEMOGLOBIN 2022-11-18 20:41:00 Marco Church [facility] (A1C) [facility] N-TERMINAL PRO-BNP 2022-11-18 20:41:00 Anna Welsh [facility] VITAMIN D, 25-OH 2022-11-18 20:41:00 Marco Church [facility] FREE T3 2022-11-18 20:41:00 Marco Church [facility] SARS-COV-2 COVID-19 2022-11-18 20:40:30 Marco Church [facility] VACCINE 12 YRS+, [facility] BIVALENT 0.5ML, IM (MODERNA BOOSTER) PNEUMOCOCCAL 20 2022-11-18 20:40:29 Marco Church [facility] CONJUGATE (PREVNAR 20) Medical B ranch VACCINE FLU 2022-08-04 20:27:23 Anna Welsh [facility] VACC(),65+YR,0. Medical Branch 5 ML,IM,ADJUVANTED,QUAD(FL UAD) XR LUMBAR SPINE 3 VW 2022-07-14 16:40:05 Marco Church [facility] POCT HEMOGLOBIN A1C TEST 2022-07-14 15:53:00 Marco Church [facility] ASSIGNMENT OF BENEFITS 2022-07-14 14:29:20 Doctor Unassigned, [facility] Plan of Care Planned Activity Planned Date Details Comments Source Future Scheduled 2030-07-02 DTAP/TDAP/TD VACCINES [facility] 00:00:00 (2 - Td or Tdap) [code Medic al Center = DTAP/TDAP/TD VACCINES (2 - Td or Tdap)] Future Scheduled 2024-05-[address] [facility] Test 00:00:00 Counseling and Medical Cente r Screening (12+) [code = Tobacco Cessation Counseling and Screening (12+)] Future Scheduled 2023-05-[address] 00:00:00 measurement (procedure) [facility] [code = 43358189] Future Scheduled 2023-04-15 Influenza Vaccine (#1) [facility] 00:00:00 [code = Influenza Medical Ce nter Vaccine (#1)] Future Scheduled 2022-10-[address] [facility] [facility] 00:00:00 WELLNESS (YEAR 2 or Medical Center FIRST YEAR if no IPPE) [code = MEDICARE ANNUAL WELLNESS (YEAR 2 or FIRST YEAR if no IPPE)] Future Scheduled 2022-08-[address] [facility] Test 00:00:00 (12+) [code = Medical Center DEPRESSION SCREENING (12+)] Future Scheduled 2022-08-15 FALLS RISK SCREENING [facility] Test 00:00:00 [code = FALLS RISK Medical C enter SCREENING] Future Scheduled [address] [facility] Test 00:00:00 aneurysm screening Medical C enter (procedure) [code = 943313718] Future Scheduled 2021-10-16 COVID-19 VACCINE (4 - [facility] 00:00:00 Booster for [facility] series) [code = COVID-19 VACCINE (4 - Booster for Moderna series)] Future Scheduled 2006 SHINGLES VACCINES ([address] [facility] Test 00:00:00 2) [code = SHINGLES Medical Center VACCINES (1 of 2)] Future Scheduled 1974 HEPATITIS C SCREENING [facility] 00:00:00 [code = HEPATITIS C Medical Center SCREENING] Future Scheduled 1966 Urine screening for [facility] Test 00:00:00 protein (procedure) [facility] Center [code = 247150481] Future Scheduled 1966 DIABETIC EYE EXAM [code [facility] 00:00:00 = DIABETIC EYE EXAM] Medical Center Future Scheduled [address] [facility] Test 00:00:00 examination Medical Center (regime/therapy) [code = 637196139] Future Scheduled 1956 CT Colonography (combo) [facility] Test 00:00:00 [code = CT Colonography [facility] Center (combo)] Future Scheduled 1956 Screening for malignant [facility] Test 00:00:00 neoplasm of colon Medical Ce nter (procedure) [code = 906413249] Future Scheduled 1956 Screening for malignant [facility] Test 00:00:00 neoplasm of colon Medical Ce nter (procedure) [code = 191739449] Future Scheduled 1956 Screening for malignant [facility] Test 00:00:00 neoplasm of colon Medical Ce nter (procedure) [code = 484526645] Future Scheduled 1956 Screening for malignant [facility] Test 00:00:00 neoplasm of colon Medical Ce nter (procedure) [code = 523785997] Future Scheduled 1956 Sigmoidoscopy [code = [facility] 00:00:00 Sigmoidoscopy] Medical Cente r Encounters Start End Encounter Admission Attending Care Care Encounter Source Date/Time Date/Time Type Type Clinicians Facility Department ID 2023-05-19 Inpatient [facility] SLE [id number] [facility] 18:35:58 2023-05-19 Inpatient IGNACIO OREILLY [facility] [id number] [facility] 15:07:53 [facility] 2023-05-19 Inpatient [facility] [id number] SLEH 13:53:27 [facility] 2023-05-18 Inpatient ROBLES PARRA SLE [id number] SLEH 20:36:50 [facility] 2023-05-18 Inpatient EL SLE SLE [id number] SLEH 15:59:42 2023-05-18 Inpatient EL SLE SLE [id number] [facility] 14:24:56 2021-06-13 Emergency [facility] [id number] Univers 03:04:26 ity [facility] 2023-05-242023-05-24 Director Geophysical Laboratory 2, Adc Lab [facility] 1.2.840.114 [id number] Univers 08:00:00 08:15:00 Visit Marco Church 350.1.13.[address] [facility] [place] [id number] Pa dical NAL 353 [facility] 2023-05-24 2023-05-24 [facility] [id number] Univers 08:00:00 08:00:00 MARCO mcclendon [facility] 2023-05-17 2023-05-20 Hospital Yasemin Oreilly [facility] [id number] 17:51:00 14:13:00 Encounter Flory Sparrow Maria M [facility] 2023-05-17 2023-05-20 Inpatient ER [facility] Neuro ICU [id number] [facility] 17:51:00 14:13:00 [facility] 2023-05-20 2023-05-20 [facility] 1.2.840.114 [id number] Univers 00:00:00 00:00:00 Marco EDEN 350.1.13.10 i [place] [id number] Pa dical NAL 044 [facility] 2023-05-17 2023-05-17 Travel [facility] [id number] [facility] St 00:00:00 00:00:00 [facility] 2023-05-13 2023-05-13 Outpatient R [facility] SHANE [id number] Univers 07:02:00 11:55:00 VIRGINIE mcclendon [facility] 2023-05-13 2023-05-13 Hospital [facility] 1.2.840.114 [id number] Univers 07:02:00 11:55:00 Encounter Virginie EDEN 350.1.13.10 ity [place] [id number] [address] 2023-05-13 2023-05-13 Surgery [facility] 1.2.126.976 [id number] Univers 08:25:00 09:28:00 Virginie EDEN 350.1.13.10 i ty [facility] 4.[place] [id number] [facility] 020 [place] 2023-05-13 2023-05-13 Orders Doctor GILBERTO 1.2.840.114 [id number] Univers 00:00:00 00:00:00 Only Unassigned, MALOU 350.1.13.10 ity of [place] [facility] 4.2.7.2.686 Ron as [id number] [facility] 009 [place] 2023-05-07 2023-05-07 [facility] 1.2.840.114 [id number] Univers 00:00:00 00:00:00 Marco EDEN 350.1.13.10 i ty [place] [id number] Pa dical NAL 044 [facility] 2023-04-12 2023-04-12 Outpatient R DIANA MIGUEL [facility] [id number] Univers 13:45:00 13:45:00 DIANA MIGUEL [facility] 2023-04-05 2023-04-05 Telephone [facility] 1.2.840.114 [id number] Univers 00:00:00 00:00:00 Virginie EDEN 350.1.13.10 i ty [place] [id number] Pa dical NAL 188 [facility] 2023-03-25 2023-03-25 Anesthesia Alison, 1.2.840.1 [id number] Univers 10:36:18 10:36:18 Event Joelle 30536.1.1 ity of 3.104.2.7 [place] .3.182895 Medica l .8 [place] 2023-03-25 2023-03-25 Outpatient R [facility] SHANE [id number] Univers 09:12:00 10:34:00 VIRGINIE mcclendon [facility] 2023-03-25 2023-03-25 [facility], 1.2.840.6 [id number] Univers 09:12:00 10:34:00 Encounter Virginie 71146.1.1 it y of 3.104.2.7 [place] .3.178594 Medica l .8 [place] 2023-03-25 2023-03-25 Orders Doctor 1.2.840.1 [id number] Univers 00:00:00 00:00:00 Only Unassigned, 12475.1.1 ity of [place] 3.104.2.7 [place] .3.497134 Medica l .8 Branch 2023-03-18 2023-03-18 Travel 1.2.840.1 1.2.857.731 [id number] Univers 00:00:00 00:00:00 82041.1.1 350.1.13.10 ity of 3.104.2.7 [place].698 [place] .3.363232 084.8 Medica l .8 [place] 2023-03-03 2023-03-03 Outpatient R CLAIRE, [facility] [id number] Univers 14:40:00 15:37:16 PETER ity of [facility] 2023-03-03 2023-03-03 Office [facility], 1.2.840.8 [id number] Univers 14:40:00 15:37:16 Visit Marco 86843.1.1 ity of 3.104.2.7 [place] .3.085598 Medica l .8 [place] 2023-03-03 2023-03-03 Travel 1.2.840.1 1.2.531.066 [id number] Univers 00:00:00 00:00:00 61477.1.1 350.1.13.10 ity of 3.104.2.7 4.[place].3.698 [place] .3.531700 084.8 Medica l .8 [place] 2023-02-04 2023-02-04 [facility], 1.2.840.9 [id number] Univers 00:00:00 00:00:00 Virginie 69342.1.1 ity of 3.104.2.7 [place] .3.751038 Medica l .8 Branch 2023-02-03 2023-02-03 Prep For Peña, 1.2.840.5 [id number] Univers 00:00:00 00:00:00 Surgery Virginie 11337.1.1 ity of 3.104.2.7 [place] .3.419542 Medica l .8 Branch 2023-02-03 2023-02-03 Letter Peña, 1.2.840.5 [id number] Univers 00:00:00 00:00:00 (Out) Virginie 55278.1.1 ity of 3.104.2.7 [place] .3.657843 Medica l .8 Branch 2023-02-01 2023-02-01 Surgery Peña, 1.2.840.1 [id number] Univers 08:47:00 09:48:00 Virginie 56006.1.1 ity of 3.104.2.7 [place] .3.123575 Medica l .8 Branch 2023-02-01 2023-02-01 Outpatient R CASEY, [facility] [id number] Univers 07:49:00 09:45:00 VIRGINIE ity of [facility] 2023-02-01 2023-02-01 Hospital [place], 1.2.840.9 [id number] Univers 07:49:00 09:45:00 Encounter Virginie 16995.1.1 it y of 3.104.2.7 [place] .3.477238 Medica l .8 Branch 2023-02-01 2023-02-01 Anesthesia Flora Quinones 1.2.840.1 [id number] Univers 08:50:00 09:01:00 Event Javed Ovalle 29366.1.1 ity of 3.104.2.7 [place] .3.504299 Medica l .8 Branch 2023-02-01 2023-02-01 Telephone Peña, 1.2.840.0 [id number] Univers 00:00:00 00:00:00 Virginie 19066.1.1 ity of 3.104.2.7 [place] .3.948529 Medica l .8 Branch 2023-01-24 2023-01-24 Travel 1.2.840.1 1.2.031.687 [id number] Univers 00:00:00 00:00:00 37131.1.1 350.1.13.10 ity of 3.104.2.7 [place]7.3.698 [place] .3.320510 084.8 Medica l .8 Branch 2023-01-20 2023-01-20 Telephone Casey, 1.2.840.0 [id number] Univers 00:00:00 00:00:00 Virginie 33149.1.1 ity of 3.104.2.7 [place] .3.776045 Medica l .8 Branch 2023-01-19 2023-01-19 Prep For Peña, 1.2.840.5 [id number] Univers 00:00:00 00:00:00 Surgery Virginie 60115.1.1 ity of 3.104.2.7 [place] .3.570117 Medica l .8 Branch 2023-01-10 2023-01-10 Telephone Claire, 1.2.840.2 [id number] Univers 00:00:00 00:00:00 Peter 39791.1.1 ity of 3.104.2.7 [place] .3.991091 Medica l .8 [place] 2023-01-03 2023-01-03 Outpatient R BLAISE [facility] [id number] Univers 13:00:00 13:00:00 SENDIL ity of [facility] 2022-12-29 2022-12-29 Outpatient R BLAISE [facility] [id number] Univers 14:00:00 14:00:00 SENDIL ity of [facility] 2022-12-10 2022-12-10 [facility] 1.2.216.154 [id number] Univers 00:00:00 00:00:00 Sendil [facility] 350.1.13.10 ity of [place] 4[place]7.2.[place] [id number] Pa dical NAL 059 [facility] 2022-12-03 2022-12-03 [facility] [id number] Univers 11:22:01 23:59:00 MARCO ity [facility] 2022-12-03 2022-12-03 [facility] 1.2.840.114 [id number] Univers 10:50:00 23:59:00 Encounter Marco EDEN 350.1.13.10 ity [facility] [place] [id number] [address] 2022-12-03 2022-12-03 Office [facility] 1.2.840.114 [id number] Univers 09:30:00 11:08:55 Visit Kathy EDEN 350.1.13.10 ity [facility] 4[place] [id number] Pa dical NAL 188 [facility] 2022-11-30 2022-11-30 [facility] [id number] Univers 08:40:00 08:40:00 KATY ity [facility] 2022-11-25 2022-11-25 Outpatient R [facility] [id number] Univers 00:00:00 00:00:00 MARCO ity [facility] 2022-11-22 2022-11-22 Telephone [facility] 1.2.256.787 [id number] Univers 00:00:00 00:00:00 Anna EDEN 350.1.13.10 ity of [place] [id number] Pa dical NAL 059 [facility] 2022-11-18 2022-11-18 Office [facility] .2.840.114 [id number] Univers 15:40:00 15:40:00 Visit Marco EDEN 350.1.13.10 i ty [facility] 4.2.[place].2.[place] [id number] Pa dical NAL 044 [facility] 2022-11-18 2022-11-18 Office Claire [facility] 1.2.840.114 [id number] Univers 14:40:00 15:32:06 Visit Marco EDEN 350.1.13.10 i ty [facility] 4.2.7.2.[place] [id number] Pa dical NAL 044 [facility] 2022-11-18 2022-11-18 Outpatient R CLAIRE [facility] [id number] Univers 15:40:00 15:26:11 MARCO mcclendon [facility] 2022-11-18 2022-11-18 Director Geophysical Laboratory 2, Adc Lab [facility] 1.2.840.114 [id number] Univers 09:15:00 09:30:00 Visit Marco Church 350.1.13.10 ity [facility] 4[place]2.[place].2.[place] [id number] Pa dical NAL 353 [facility] 2022-11-09 2022-11-09 Outpatient R CALIRE [facility] [id number] Univers 08:00:00 08:00:00 MARCO mcclendon [facility] 2022 2022 Refill Blaise [facility] 1.2.840.114 [id number] Univers 00:00:00 00:00:00 Anna EDEN 350.1.13.[address] [facility] [facility] 4.2.[place].2.[place] [id number] Pa dical NAL 059 [facility] 2022-10-05 2022-10-05 Outpatient R BLAISE [facility] [id number] Univers 13:30:00 13:49:26 ANNA mcclendon [facility] 2022-10-05 2022-10-05 Office [facility] 1.2.840.114 [id number] Univers 13:30:00 13:49:26 Visit Anna EDEN [id number] [id number] [id number] Pa dical NAL 059 [facility] 2022-08-04 2022-08-04 Office Blaise [facility] [id number] Univers 14:30:00 14:30:00 Visit Anna IsaacDevan EDEN [id number] ity [facility] [id number] [id number] Pa dical NAL 059 [facility] 2022-08-04 2022-08-04 Outpatient R BLAISE [facility] [id number] Univers 14:30:00 14:10:32 SENDIL timmy [facility] 2022-08-02 2022-08-02 Outpatient R PIERCE BALLARD [facility] [id number] Univers 13:00:00 13:00:00 PIERCE BALLARD [facility] 2022-07-28 2022-07-28 Outpatient R CLAIRE [facility] [id number] Univers 00:00:00 00:00:00 MARCO chapintimmy [facility] 2022-07-26 2022-07-26 Outpatient R SAAD [facility] [id number] Univers 08:45:00 09:36:52 JAMES chapintimmy [facility] 2022-07-26 2022-07-26 Ancillary [facility] CENTER 1.2.84 0.114 [id number] Univers 08:45:00 09:36:52 Visit James Nash 350.1.13.10 ity [facility] [place] [id number] Pa dical NAL 179 [facility] 2022-07-20 2022-07-20 Outpatient R CLAIRE [facility] [id number] Univers 00:00:00 00:00:00 MARCO mcclendon [facility] 2022-07-14 2022-07-14 [facility] 1.2.840.114 [id number] Univers 10:26:13 23:59:00 Encounter Marco EDEN 350.1.13.10 ity of [place].7.2.[place] [id number] [facility] [address] [place] 2022-07-14 2022-07-14 [facility] [id number] Univers 09:00:00 09:51:36 MARCO mcclendon [facility] 2022-07-14 2022-07-14 [facility] 1.2.840.114 [id number] Univers 09:00:00 09:51:36 Visit Marco [place] 350.1.13.10 i ty of [place].2.[place] [phone] [facility]44 [facility] 2022-07-14 2022-07-14 [facility] [id number] Univers 09:00:00 09:00:00 PETER [facility] 2022-07-14 2022-07-14 Orders Doctor MACIAS 1.2.840.114 [id number] Univers 00:00:00 00:00:00 Only Unassigned, MALOU 350.1.13.10 ity of [place] [facility] 4.2.7.2.686 Ron as [phone] [facility] [address] 2022-07-14 2022-07-14 Telephone [facility] 1.2.840.114 [id number] Univers 00:00:00 00:00:00 Marco NILEKRISH 350.1.13.10 i ty of [place].2.[place] [id number] Pa dical NAL 231 [facility] 2022-07-05 2022-07-05 Outpatient R BLAISE [facility] [id number] Univers 14:00:00 14:00:00 SENDIL ity [facility] 2022-07-05 2022-07-05 Outpatient R BLAISE [facility] [id number] Univers 14:00:00 14:00:00 SENDIL ity [facility] 2022-06-28 2022-06-28 [facility] 1.2.840.114 [id number] Univers 00:00:00 00:00:00 Marco EDEN 350.1.13.10 i ty [address] [facility] 4.2.7.2.[place] [phone] Pa dical NAL 044 [facility] 2022-06-14 2022-06-14 Outpatient [facility] [id number] Univers 10:00:00 10:00:00 JELENA mcclendon [facility] 2022-06-11 2022-06-11 Outpatient R BASILIOASHTYN [facility] [id number] Univers 09:00:00 09:00:00 JELENA mcclendon [facility] 2022-06-11 2022-06-11 Out[facility] [id number] Univers 09:00:00 09:00:00 JELENA mcclendon [facility] 2022-06-11 2022-06-11 Outpatient [facility] [id number] Univers 09:00:00 09:00:00 JELENA ity [facility] 2022-04-08 2022-04-08 Out[facility] [id number] Univers 10:00:00 10:00:00 SENDIL ity [facility] 2022-04-02 2022-04-02 Outpatient Debbie [facility] [id number] Univers 14:30:00 14:36:00 [facility]22-[facility]-02 2022-04-02 [facility] 1.2.840.114 [id number] Univers 14:30:00 14:36:00 Visit Sendil Gian EDEN 350.1.13.10 ity of [place] 4.2.7.2.686 [place] [id number] Pa dical NAL 059 [facility] 2022-04-02 2022-04-02 Out[facility] [id number] Univers 14:30:00 14:36:00 SENDIL ity [facility] 2022-03-26 2022-03-26 Outpatient Debbie [facility] [id number] Univers 10:00:00 23:59:00 SENDIL ity [facility] 2022-03-26 2022-03-26 Outpatient R BLAISE [facility] [id number] Univers 10:00:00 23:59:00 SENDIL ity [facility] 2022-03-26 2022-03-26 Outpatient R BLAISE [facility] [id number] Univers 10:00:00 23:59:00 SENDIL ity [facility] 2022-03-24 2022-03-24 Telephone [facility] 1.2.840.114 [id number] Univers 00:00:00 00:00:00 Marco EDEN 350.1.13.[address] [facility] 4.2.[place] [phone] Pa dical NAL 044 [facility] 2022-03-23 2022-03-23 Outpatient [facility] [id number] Univers 08:54:09 23:59:00 SENDIL ity [facility] 2022-03-23 2022-03-23 Outpatient [facility] [id number] Univers 08:54:09 23:59:00 SENDIL ity [facility] 2022-03-23 2022-03-23 Out[facility] [id number] Univers 09:00:00 09:00:00 SENDIL ity [facility] 2022-03-09 2022-03-09 Outpatient [facility] [id number] Univers 09:30:00 09:47:03 SENDIL ity [facility] 2022-03-09 2022-03-09 Office [facility] 1.2.840.114 [id number] Univers 09:30:00 09:47:03 Visit Sendil Gian EDEN 350.1.13.[address] [facility] 4.2.7.2.[place] [phone] Pa dical NAL 059 [facility] 2022-03-09 2022-03-09 Outpatient [facility] [id number] Univers 09:30:00 09:47:03 SENDIL ity [facility] 2022-03-09 2022-03-09 Outpatient R BLAISE [facility] [id number] Univers 09:30:00 09:47:03 SENDIL ity [facility] 2022-03-09 2022-03-09 Outpatient R BLAISE [facility] [id number] Univers 09:30:00 09:30:00 SENDIL ity [facility] 2022-03-08 2022-03-08 Outpatient R NATI URENA [facility] [id number] Univers 15:30:00 15:59:06 NATI URENA ity [facility] 2022-03-08 2022-03-08 Outpatient R AYANNANATI MAURICIO [facility] [id number] Univers 15:30:00 15:59:06 NATI URENA ity [facility] 2022-03-08 2022-03-08 Office Ayanna [facility] 1.2.840.114 [id number] Univers 15:30:00 15:59:06 Visit Basimbereketsmita MEEK 350.1.13.10 ity of [place].2.7.2.[place] [id number] Pa austen [place] 044 [facility] 2022-03-08 2022-03-08 Outpatient R NATI URENA [facility] [id number] Univers 15:30:00 15:59:06 AYANNANATI MAURICIO ity [facility] 2022-03-05 2022-03-05 Director Geophysical Laboratory 2, Adc Lab [facility] 1.2.840.114 [id number] Univers 11:30:00 11:45:00 Visit AyannaEdwige mauriciospencersmita MEEK 350.1.13.1 0 ity of [place] 4.2.7.2.[place] [phone] Pa dical NAL 353 [facility] 2022-03-05 2022-03-05 Office Ayanna [facility] 1.2.840.114 [id number] Univers 11:00:00 11:00:00 Visit Ericasmita MEEK 350.1.13.10 ity of [place] 4.2.7.2.[place] [id number] Pa dical NAL 044 [facility] 2022-03-05 2022-03-05 Outpatient R NATI URENA [facility] [id number] Univers 11:00:00 10:14:53 NATI URENA [facility] 2022-03-05 2022-03-05 Outpatient R NATI URENA [facility] [id number] Univers 11:00:00 10:14:53 NATI URENA [facility] 2022-03-05 2022-03-05 Outpatient R NATI URENA [facility] [id number] Univers 11:00:00 10:14:53 NATI URENA [facility] 2021-12-25 2021-12-25 [facility] 1.2.840.114 [id number] Univers 00:00:00 00:00:00 Marco EDEN 350.1.13.10 [facility] 4.2.7.2.[place] [phone] Pa dical NAL [address] [place] [address] 2021-11-24 2021-11-24 [facility] [id number] Univers 13:20:00 13:20:00 [facility] 2021-11-24 2021-11-24 Outpatient R CLAIRE [facility] [id number] Univers 13:20:00 13:20:00 MARCO [facility] 2021-11-24 2021-11-24 [facility] [id number] Univers 13:20:00 13:20:00 MARCO [facility] 2021-11-17 2021-11-17 Outpatient [facility] [id number] Univers 13:00:00 13:00:00 MARCO [facility] 2021-10-12 2021-10-12 Outpatient R BLAISE [facility] [id number] Univers 10:00:00 10:00:00 SENDIL ity [facility] 2021-10-12 2021-10-12 Outpatient R BLAISE [facility] [id number] Univers 08:00:00 08:03:00 SENDIL ity [facility] 2021-10-01 2021-10-01 [facility] [id number] Univers 10:00:00 10:32:45 SENDIL ity [facility] 2021-10-01 2021-10-01 Office [facility] 1.2.840.114 [id number] Univers 10:00:00 10:32:45 Visit Sendriddhi EDEN 350.1.13.10 ity [facility] 4.2.7.2.[place] [id number] Pa dictn NAL 059 [facility] 2021-10-01 2021-10-01 [facility] [id number] Univers 10:00:00 10:32:45 SENDIL ity [facility] 2021-10-01 2021-10-01 Out[facility] [id number] Univers 10:00:00 10:00:00 SENDIL ity [facility] 2021-09-24 2021-09-24 Nurse Nurse, [facility] 1.2.840.114 [id number] Univers 14:20:00 14:40:00 Visit Marco Church 350.1.13.10 ity [facility] 4.2.[place].2.[place] [id number] Pa dical NAL 044 [facility] 2021-09-24 2021-09-24 Outpatient R CLAIRE [facility] [id number] Univers 14:20:00 14:25:48 MARCO mcclendon [facility] 2021-09-24 2021-09-24 Outpatient R CLAIRE [facility] [id number] Univers 14:20:00 14:25:48 MARCO mcclendon [facility] 2021-09-24 2021-09-24 Outpatient R CLAIRE [facility] [id number] Univers 14:20:00 14:20:00 MARCO mcclendon [facility] 2021-09-17 2021-09-17 Outpatient R [facility] [id number] Univers 14:20:00 14:20:00 ity [facility] 2021-09-17 2021-09-17 Outpatient R CLAIRE [facility] [id number] [facility] 09:00:00 09:13:34 MARCO mcclendon [facility] 2021-09-17 2021-09-17 Outpatient R CLAIRE [facility] [id number] Univers 09:00:00 09:13:34 MARCO mcclendon [facility] 2021-09-17 2021-09-17 Nurse Nurse, [facility] 1.2.840.114 [id number] Univers 09:00:00 09:13:34 Visit Emilyparag Marco EDEN 350.1.13.[address] [facility] 4.2.7.2.[place] [phone] Pa dical NAL [address] [place] [address] 2021-09-17 2021-09-17 Outpatient R CLAIRE [facility] [id number] [facility] 09:00:00 09:13:34 MARCO mcclendon [facility] 2021-09-10 2021-09-10 Outpatient R CLAIRE [facility] [id number] Univers 14:20:00 15:26:59 MARCO mcclendon [facility] 2021-09-10 2021-09-10 Nurse Nurse, [facility] 1.2.840.114 [id number] [facility] 14:20:00 15:26:59 Visit Marco Church 350.1.13.[address] [facility] 4.2.7.2.[place] [phone] Pa dical NAL [address] [place] [address] 2021-09-10 2021-09-10 Telemedici [facility] 1.2.840.114 [id number] Univers 08:40:00 14:51:36 ne Visit Marco EDEN 350.1.13.[address] [facility] 4.2.7.2.[place] [id number] Pa dical NAL [address] [place] [address] 2021-09-102021-09-10 [facility] [id number] Univers 08:40:00 14:51:36 MARCO mcclendon [facility] 2021-09-10 2021-09-10 Telephone [facility] 1.2.840.114 [id number] Univers 00:00:00 00:00:00 Marco EDEN 350.1.13.10 i ty of [place] 4.2.7.2.686 [place] [phone] Pa dical NAL 044 [facility] 2021-08-25 2021-08-25 Director Geophysical Laboratory Hanny, Adc Lab Main [facility] 1.2.8 40.114 [id number] Univers 17:15:00 17:30:00 Visit EmilyparagMarco 350.1.13.[address] [facility] 4.2.7.2.[place] [id number] Pa dical [facility] 353 [facility] 2021-08-25 2021-08-25 Outpatient R [facility] [id number] Univers 17:15:00 17:15:00 MARCO mcclendon [facility] 2021-08-25 2021-08-25 Office [facility] 1.2.840.114 [id number] Univers 16:00:00 16:55:33 Visit Marco NILEKRISH 350.1.13.10 i ty of [place] 4.2.7.2.[place] [id number] Pa dic[address] 2021-08-25 2021-08-25 Outpatient R EMILYPARAG [facility] [id number] Univers 16:00:00 16:55:33 MARCO mcclendon [facility] 2021-08-25 2021-08-25 Outpatient [facility] [id number] Univers 16:00:00 16:00:00 MARCO mcclendon [facility] 2021-08-25 2021-08-25 Orders Doctor MACIAS 1.2.840.114 [id number] Univers 00:00:00 00:00:00 Only Unassigned, MALOU 350.1.13.10 [facility] 4.2.7.2.686 Ron as [id number] [address] 2021-07-15 2021-07-15 Outpatient R BLAISE [facility] [id number] Univers 00:00:00 00:00:00 SENDIL ity [facility] 2021-07-15 2021-07-15 Outpatient R BLAISE [facility] [id number] Univers 00:00:00 00:00:00 SENDIL ity [facility] 2021-06-29 2021-06-29 Outpatient R BLAISE [facility] [id number] Univers 09:30:00 09:40:35 SENDIL ity [facility] 2021-06-29 2021-06-29 Outpatient R BLAISE [facility] [id number] Univers 09:30:00 09:40:35 SENDIL ity [facility] 2021-06-29 2021-06-29 Office Blaise [facility] 1.2.840.114 [id number] Univers 08:59:11 09:40:35 Visit Sendriddhi EDEN 350.1.13.10 ity [facility] 4.2.7.2.[place] [id number] Pa dic[address] 2021-06-29 2021-06-29 Orders Doctor GILBERTO 1.2.840.114 [id number] Univers 00:00:00 00:00:00 Only Unassigned, MALOU 350.1.13.10 ity of [facility] 4.2.7.2.686 Ron as [phone] [address] 2021-06-22 2021-06-22 Outpatient R BLAISE [facility] [id number] Univers 13:00:00 13:00:00 SENDIL ity [facility] 2021-06-11 2021-06-11 Outpatient [facility] [id number] Univers 09:00:00 09:17:07 JELENA mcclendon [facility] 2021-06-11 2021-06-11 Office [facility] 1.2.840.114 [id number] Univers 08:35:06 09:17:07 Visit Jelena Marquez HEALTH 350.1.13.10 ity [facility] 4.2.7.2.686 [facility] [phone] [facility] PRIMARY & [facility] 2021-06-09 2021-06-09 Outpatient ASAD HOPKINS [facility] [id number] Univers 14:15:00 14:15:00 ity [facility] 2021-06-04 2021-06-04 Outpatient Debbie WAKEFIELD [facility] [id number] Univers 13:45:00 13:45:00 JELENA timmy [facility] 2021-06-02 2021-06-02 Outpatient ASAD HOPKINS [facility] [id number] Univers 10:30:00 10:30:00 ity [facility] 2021-05-26 2021-05-26 Outpatient ASAD HOPKINS [facility] [id number] Univers 09:15:00 09:15:00 ity [facility] 2021-05-22 2021-05-22 Outpatient Debbie WELSH [facility] [id number] Univers 13:00:00 13:40:09 [facility] 2021-05-22 2021-05-22 Outpatient Debbie WELSH [facility] [id number] Univers 13:00:00 13:40:[facility] 2021-05-22 Office [facility] 1.2.840.114 [id number] Univers 12:56:18 13:40:09 Visit Anna Eden 350.1.13.10 ity [facility] 4.2.7.2.686 [facility] [phone] Pa dical [facility] 2021-05-22 2021-05-22 Outpatient Debbie WLESH [facility] [id number] Univers 13:00:00 13:00:00 [facility] 2021-05-15 2021-05-15 Office [facility] 1.2.840.114 [id number] Univers 10:56:42 12:09:09 Visit Marco Eden 350.1.13.10 i ty [facility] 4.2.7.2.[place] [phone] Pa dicclarence nal [address] [place] [address] 2021-05-15 2021-05-15 Outpatient R [facility] [id number] Univers 11:20:00 11:20:00 MARCO mcclendon [facility] 2021-02-06 2021-02-06 Office [facility] 1.2.840.114 [id number] Univers 15:59:21 17:01:32 Visit Marco Eden 350.1.13.10 i ty of [place] 4.2.7.2.686 [place] [phone] Pa dic[address] 2021-02-06 2021-02-06 [facility] [id number] Univers 16:20:00 16:20:00 MARCO mcclendon [facility] 2021-01-02 2021-01-02 Telephone [facility] 1.2.840.114 [id number] Univers 00:00:00 00:00:00 Marco Eden 350.1.13.10 i ty of [place] 4[place].2.[place] [phone] [address] 2021-01-02 2021-01-02 Telephone [facility] 1.2.840.114 [id number] 00:00:00 00:00:00 Marco Eden 350.1.13.10 [place] 4.2.7.2.686 Professio [phone] [address] 2021-01-01 2021-01-01 Outpatient R [facility] [id number] Univers 15:59:46 23:59:00 MARCO mcclendon [facility] 2021-01-01 2021-01-01 [facility] 1.2.840.114 [id number] Univers 15:50:00 23:59:00 Encounter Marco Eden 350.1.13.10 ity [facility] 4.2.7.2.686 [place] [phone] [address] 2021-01-012021-01-01 [facility] 1.2.840.114 [id number] 15:50:00 23:59:00 Encounter Marco Eden 350.1.13.10 [place] 4.2.7.2.686 [place] [id number] 801 2021-01-01 2021-01-01 Director Geophysical Laboratory 2, Adc Lab [facility] 1.2.840.114 [id number] Univers 15:09:59 15:24:59 Visit NicanorceasarMarco faye Meek 350.1.13.10 ity [facility] 4.2.7.2.[place] [phone] Pa dical [facility] 353 [facility] 2021-01-01 2021-01-01 Office [facility] 1.2.840.114 [id number] Univers 14:12:54 15:07:47 Visit Marco Eden 350.1.13.10 i ty [facility] 4.2.7.2.[place] [phone] Pa dical [facility] 044 [facility] 2021-01-01 2021-01-01 Office [facility] 1.2.840.114 [id number] 14:12:54 15:07:47 Visit Marco [place] 350.1.13.10 [place] 4.2.7.2.686 Professio [phone] [address] 2021-01-01 2021-01-01 Outpatient R CLAIRE [facility] [id number] Univers 14:40:00 14:40:00 MARCO mcclendon [facility] 2021-01-01 2021-01-01 Orders Doctor MACIAS 1.2.840.114 [id number] Univers 00:00:00 00:00:00 Only Unassigned, MALOU 350.1.13.10 ity of [place] [facility] 4.2.7.2.686 Ron as [phone] [address] 2020-12-17 2020-12-17 Outpatient R ANNALISE [facility] [id number] Univers 08:40:00 08:40:00 NAHID mcclendon [facility] 2020-11-19 2020-11-19 Outpatient [facility] [id number] Univers 17:00:00 17:00:00 [facility] 2020-10-03 2020-10-03 [facility] 1.2.840.114 [id number] Univers 10:38:45 12:31:25 Visit Marco Meek 350.1.13.10 [facility] 4.2.7.2.686 [facility] [phone] Pa dical nal 044 [facility] 2020-10-03 2020-10-03 Outpatient R [facility]CE[facility] [id number] Univers 10:40:00 10:40:00 MARCO [facility] 2020-09-30 2020-09-30 [facility] [id number] Univers 10:40:00 10:40:00 MARCO [facility] 2020-09-26 2020-09-26 [facility] 1.2.840.114 [id number] Univers 08:51:45 23:59:00 Encounter Marco Meek 350.1.13.10 [facility] 4.2.7.2.686 [place] [id number] [facility] [address] [place] [address] 2020-09-26 2020-09-26 Outpatient R [facility] [id number] Univers 00:00:00 00:00:00 MARCO timmy [facility] 2020-09-25 2020-09-25 [facility] 1.2.185.291 [id number] Univers 07:55:47 23:59:00 Encounter Pierce [place] 350.1.13.10 [facility] 4.2.7.2.686 [place] [id number] [address] 2020-09-25 2020-09-25 Outpatient R PIERCE BALLARD [facility] [id number] Univers 00:00:00 00:00:00 PIERCE BALLARD [facility] 2020-09-18 2020-09-18 [facility] 1.2.840.114 [id number] Univers 13:06:11 16:40:55 ne Visit Marco Eden 350.1.13.10 ity of [place] 4.2.7.2.686 [place] [phone] Pa dical nal 044 [facility] 2020-09-18 2020-09-18 Outpatient Debbie PIERCE BALLARD [facility] [id number] Univers 10:00:00 10:00:00 PIERCE BALLARD [facility] 2020-09-18 2020-09-18 Telephone [facility] 1.2.840.114 [id number] Univers 00:00:00 00:00:00 Marco Eden 350.1.13.10 i ty of [place] [id number] [phone] [facility] 231 [facility] 2020-09-18 2020-09-18 Telephone [facility] [id number] Univers 00:00:00 00:00:00 Marco [place] [id number] [id number] [phone] Pa dical nal 044 [facility] 2020-09-15 2020-09-15 Outpatient Debbie PEÑA [facility] [id number] Univers 08:30:00 08:30:00 VIRGINIE timmy [facility] 2020-09-08 2020-09-08 Director [facility] 2, Adc Lab [facility] [id number] Univers 11:31:23 11:46:23 Visit Pierce Ballard [id number] ity of Saint [id number] [phone] [facility] 353 [facility] 2020-09-08 2020-09-08 Outpatient PIERCE LIMA [facility] [id number] Univers 11:30:00 11:30:00 PIERCE BALLARD [facility] 2020-09-03 2020-09-03 [facility]phone [facility] .2.840.114 [id number] Univers 00:00:00 00:00:00 Pierce Eden 350.1.13.10 [id number] [phone] Pa dical nal 092 [facility] 2020-09-02 2020-09-02 Outpatient Debbie PEÑA [facility] [id number] Univers 14:30:00 14:30:00 VIRGINIE mcclendon [facility] 2020-09-02 2020-09-02 Director Geophysical Laboratory 2, Adc Lab [facility] 1.2.840.114 [id number] Univers 13:45:25 14:00:25 Visit Marco Church 350.1.13.10 [place] [phone] Pa dical nal 353 [facility] 2020-09-02 2020-09-02 Telephone [facility] 1.2.840.114 [id number] [facility] 00:00:00 00:00:00 Pierce Eden 350.1.13.10 [id number] [phone] [facility] 092 [facility] 2020-08-29 2020-08-29 Telephone [facility] 1.2.840.114 [id number] Univers 00:00:00 00:00:00 Marco Eden 350.1.13.10 [place] [phone] Pa dical nal 231 [facility] 2020-08-21 2020-08-21 [facility] 1.2.792.389 [id number] Univers 12:53:22 23:59:00 Encounter Pierce Eden 350.1.13.10 [place] [phone] [facility] [address] [place] 2020-08-21 2020-08-21 Outpatient PIERCE LIMA [facility] [id number] Univers 00:00:00 00:00:00 STONE, PIERCE [facility] 2020-08-04 2020-08-04 Office Stone [facility] 1.2.840.114 [id number] Univers 13:36:43 15:46:24 Visit Pierce Eden 350.1.13.10 [place] [phone] [facility] 092 [facility] 2020-08-04 2020-08-04 Outpatient R STONEPIERCE MAO [facility] [id number] Univers 13:40:00 13:40:00 PIERCE BALLARD ittimmy [facility] 2020-08-04 2020-08-04 Orders Doctor GILBERTO 1.2.840.114 [id number] Univers 00:00:00 00:00:00 Only ChelseyssMALOU chaves 350.1.13.10 ity of [place] [facility] 4.2.7.2.686 Ron as [phone] [address] 2020-07-28 2020-07-28 [facility] 1.2.840.114 [id number] Univers 00:00:00 00:00:00 Marco Eden 350.1.13.10 [place] [phone] [facility] 044 [facility] 2020-07-23 2020-07-23 Telephone [facility] 1.2.840.114 [id number] Univers 00:00:00 00:00:00 Opal Eden 350.1.13.10 [place] [phone] [facility] 231 [facility] 2020-07-17 2020-07-17 Outpatient R CLAIRE [facility] [id number] Univers 00:00:00 00:00:00 MARCO mcclendon [facility] 2020-07-14 2020-07-14 Laboratory Pc, Adc Echo Room [address] [facility] 1 .2.840.114 [id number] Univers 13:31:18 14:34:05 Only Khoi Jones 350.1.13.10 [place] [phone] Pa dical nal 059 [facility] 2020-07-14 2020-07-14 Outpatient R [facility] [id number] Univers 14:00:00 14:00:00 [facility]-07-03 2020-07-03 Outpatient R [facility] [id number] Univers 14:00:00 14:00:00 [facility] 2020-07-02 2020-07-02 Office [facility] 1.2.840.114 [id number] Univers 11:16:30 12:52:33 Visit Marco Eden 350.1.13.10 [place] [phone] [facility] 044 [facility] 2020-07-02 2020-07-02 Outpatient R [facility] [id number] Univers 11:20:00 11:20:00 MARCO mcclendon [facility] 2020-06-25 2020-06-25 Telephone [facility] 1..840.114 [id number] Univers 00:00:00 00:00:00 Marco Eden 350.1.13.10 [place] [phone] Pa dictn nal 044 [facility] 2020-06-18 2020-06-18 Emergency [place], K [facility] 1..840.114 [id number] Univers 12:21:00 14:02:00 Darby Eden 350.1.13.10 [place] [phone] [facility] [address] 2020-06-18 2020-06-18 Office [facility] 1.2.840.114 [id number] Univers 10:01:33 12:17:51 Visit Marco Eden 350.1.13.10 i [place] [phone] Pa dictn nal 044 [facility] 2020-06-18 2020-06-18 Outpatient R [facility] [id number] Univers 10:20:00 10:20:00 MARCO ittimmy of [facility] 2020-06-18 2020-06-18 Telephone Claire [facility] 1.2.840.114 [id number] Univers 00:00:00 00:00:00 Marco Eden 350.1.13.10 [place] [phone] Pa dical [address] 2020-06-18 2020-06-18 Orders Doctor GILBERTO 1.2.840.114 [id number] Univers 00:00:00 00:00:00 Only Unassigned, MALOU 350.1.13.10 ity of [place] [facility] 4.2.7.2.686 Ron as [phone] [address] 2020-06-18 2020-06-18 Letter Doctor GILBERTO 1.2.840.114 [id number] Univers 00:00:00 00:00:00 (Out) Unassigned, MALOU 350.1.13.10 ity of [place] [facility] 4.2.7.2.686 Ron as [phone] [address] Results Test Description Test Time Test Comments Results Result Comments Source POC-Glucose meter 2023-05-20 11:21:54 Test Item Value Reference Range Interpretation [facility] POC-Glucose Meter (test code = 222 mg/dL 70-110 H : TESTED AT [facility] [address] [facility] [address], 770 30: Electric Needle Specialist/Techni linette ID = [id number] for Umeh, Akumbu Lab Interpretation (test code = Abnormal 25461-7) [facility] [id number] 11:21:54 Test Item Value Reference Range Interpretation Comments POC-GLUCOSE METER 222 mg/dL 70-110 H : TESTED A T [facility] 6720 (BESecurly) (test code = [facility], 1538) 7[address]: Electric Needle Specialist/Techni linette ID = [id number] for Um eh, Akumbu POCT-GLUCOSE [id number] 07:25:33 Test Item Value Reference Range Interpretation Comments POC-GLUCOSE METER 176 mg/dL 70-110 H : TESTED A T [facility] 6720 (BESecurly) (test code = [facility], 1538) 79957: Electric Needle Specialist/Techni linette ID = [id number] for Um eh, Johnnyu [id number] 07:01:56 Test Item Value Reference Range Interpretation Comments PHOSPHORUS (BEAKER) (test code = 3.1 mg/dL 2.3-4.7 604) Electric Needle Specialist ID - BSBASIC METABOLIC [id number] 07:01:55 Test Item Value Reference Range Interpretation Comments SODIUM (BEAKER) 138 meq/L 136-145 (test code = 381) POTASSIUM 4.1 meq/L 3.5-5.1 (BEAKER) (test code = 379) CHLORIDE (BEAKER) 106 meq/L 98-107 (test code = 382) CO2 (BEAKER) 24 meq/L 22-29 (test code = 355) BLOOD UREA 20 mg/dL 7-21 NITROGEN (BEAKER) (test code = 354) CREATININE 1.17 mg/dL 0.57-1.25 (BEAKER) (test code = 358) GLUCOSE RANDOM 207 mg/dL 70-105 H (BEAKER) (test code = 652) CALCIUM (BEAKER) 8.9 mg/dL 8.4-10.2 (test code = 697) EGFR (BEAKER) 70 Interpretatio n of eGFR (test code = mL/min/1.73 values Stage De scription 1092) sq m Result G1 Lyn l or high >=90 G2 Mildly decreased 60-89 G3a Mildl y to moderately 45-5 9 G3b Moderately to s everely 30-44 G4 Severl y decreased 15-29 G5 Kidney failure <15Reported eGF R is based on the CKD-EPI 2021 equation that d oes not use a race coefficientEsti mated GFR is not as accur ate as Creatinine Anna barney in predicting glom erular filtration rate . Estimated GFR is not appl icable for dialysis patien ts Electric Needle Specialist ID - [id number] 07:01:55 Test Item Value Reference Range Interpretation Comments MAGNESIUM (BEAKER) (test code = 1.9 mg/dL 1.6-2.6 627) Electric Needle Specialist ID - BSCBC W/PLT COUNT & AUTO [id number] 06:10:00 Test Item Value Reference Range Interpretation Comments WHITE BLOOD CELL COUNT (BEAKER) 8.9 K/ L 3.5-10.5 (test code = 775) RED BLOOD CELL COUNT (BEAKER) 4.09 M/ L 4.63-6.08 L (test code = 761) HEMOGLOBIN (BEAKER) (test code = 12.3 GM/DL 13.7-17.5 L 410) HEMATOCRIT (BEAKER) (test code = 37.6 % 40.1-51.0 L 411) MEAN CORPUSCULAR VOLUME (BEAKER) 92 fL 79-92 (test code = 753) MEAN CORPUSCULAR HEMOGLOBIN 30.1 pg 25.7-32.2 (BEAKER) (test code = 751) MEAN CORPUSCULAR HEMOGLOBIN CONC 32.7 GM/DL 32.3-36.5 (BEAKER) (test code = 752) RED CELL DISTRIBUTION WIDTH 12.5 % 11.6-14.4 (BEAKER) (test code = 412) PLATELET COUNT (BEAKER) (test 195 K/CU MM 150-450 code = 756) MEAN PLATELET VOLUME (BEAKER) 9.8 fL 9.4-12.4 (test code = 754) NUCLEATED RED BLOOD CELLS 0 /100 WBC 0-0 (BEAKER) (test code = 413) NEUTROPHILS RELATIVE PERCENT 59 % (BEAKER) (test code = 429) LYMPHOCYTES RELATIVE PERCENT 30 % (BEAKER) (test code = 430) MONOCYTES RELATIVE PERCENT 9 % (BEAKER) (test code = 431) EOSINOPHILS RELATIVE PERCENT 2 % (BEAKER) (test code = 432) BASOPHILS RELATIVE PERCENT 0 % (BEAKER) (test code = 437) NEUTROPHILS ABSOLUTE COUNT 5.22 K/ L 1.78-5.38 (BEAKER) (test code = 670) LYMPHOCYTES ABSOLUTE COUNT 2.64 K/ L 1.32-3.57 (BEAKER) (test code = 414) MONOCYTES ABSOLUTE COUNT (BEAKER) 0.77 K/ L 0.30-0.82 (test code = 415) EOSINOPHILS ABSOLUTE COUNT 0.16 K/ L 0.04-0.54 (BEAKER) (test code = 416) BASOPHILS ABSOLUTE COUNT (BEAKER) 0.03 K/ L 0.01-0.08 (test code = 417) IMMATURE GRANULOCYTES-RELATIVE 0.50 % 0.00-1.00 PERCENT (BEAKER) (test code = 2801) POCT-GLUCOSE [id number] 23:02:50 Test Item Value Reference Range Interpretation Comments POC-GLUCOSE METER 223 mg/dL 70-110 H : TESTED A T [facility] 6720 (AKUA) (test code = [place], 1538) [address]: Electric Needle Specialist/Techni linette ID = [id number] for DAMION CAMARENA MR BRAIN WITHOUT IV [id number] 19:21:00 [facility] 1955 Sex: MMR BRAIN WITHOUT IV CONTRASTINDICATION: Stroke, follow upTECHNIQUE: Multiplanar, multisequence MR imaging of the brain wasobtained.COMPARISON: NoneFINDINGS:1.7 x 0.9 x 1.2 cm (0.9 cc) focus of susceptibility corresponding topreviously described hemorrhage within the left basal ganglia. No restricted diffusion to suggest recent ischemic insult. Remoteinfarct of the right centrum semiovale and basal ganglia. No abnormalsusceptibility.Confluent T2/FLAIR hyperintense signal within the periventricular andsubcortical white matter, nonspecific by imaging but statisticallyrepresenting advanced chronic microvascular changes in this age group.No hydrocephalus.Orbits are within normal limits.No obstructive paranasal sinus disease.IMPRESSION:1. 1.7 x 0.9 x 1.2 cm (0.9 cc) focus of susceptibility correspondingtopreviously described hemorrhage within the left basal ganglia.2. Remote lacunar infarct of the right centrum semiovale and basalganglia.Electronically Signed By: Kady Ace05/19/2023 19:23 CDTWork station Name: [id number] 16:02:57 Test Item Value Reference Range Interpretation Comments POC-GLUCOSE METER 187 mg/dL 70-110 H : TESTED Roberth Caldwell [facility] 6720 (AKUA) (test code = [place], 1538) [address]: Electric Needle Specialist/Techni linette ID = [id number] for Cisco Spears CT BRAIN WITHOUT IV [id number] 14:36:23 [facility] 1955 Sex: MCT BRAIN WITHOUT IV CONTRASTINDICATION: Stroke, follow upCOMPARISON: CT prior dayTECHNIQUE: Noncontrast axial CT imaging of the brain and skull. DOSE REDUCTION: Dose modulation, iterative reconstruction, and/orweight-based adjustment of the mA/kV was utilized to reduce theradiation dose to as low as reasonably achievable.FINDINGS:1.7 x 0.9 x 1.2 cm (0.9 cc) hyperdense focus within the left caudate,which, without comparison imaging, this favored to represent a smallhypertensive hemorrhage.Multiple remote infarcts of the basal ganglia. Advanced background senescent parenchymal volume loss. Midlinestructures are normally developed. Scattered foci of hypoattenuationare present throughout the periventricular and subcortical white matter,and, although nonspecific by imaging, statistically represent mildchronic microvascular ischemic changes in this age group.No hydrocephalus.Orbits are within normal limits.No obstructive paranasal sinus disease.IMPRESSION:1. No interval change compared to prior day.2.1.7 x 0.9 x 1.2 cm (0.9 cc) hyperdense focus within the leftcaudate, which, without comparison imaging, this favored to represent asmall hemorrhage. 3. Multiple remote infarcts of the basal ganglia. Ifthere is persistent clinical concern for intracranial pathology, MRexamination is recommended for further characterization. Electronically Signed By: Kady Ace05/19/2023 14:38 CDTWorkstation Name:[id number] 11:38:06 Test Item Value Reference Range Interpretation Comments POC-GLUCOSE METER 237 mg/dL 70-110 H : [facility] (BEAKER) (test code = [place], 1538) [address]: Electric Needle Specialist/Techni linette ID = [id number] for Deann Camargo [id number] 02:46:12 Test Item Value Reference Range Interpretation Comments PHOSPHORUS (BEAKER) (test code = 3.3 mg/dL 2.3-4.7 604) Electric Needle Specialist ID - BSBASIC METABOLIC [id number] 02:46:11 Test Item Value Reference Range Interpretation Comments SODIUM (BEAKER) 137 meq/L 136-145 (test code = 381) POTASSIUM 3.4 meq/L 3.5-5.1 L (BEAKER) (test code = 379) CHLORIDE (BEAKER) 105 meq/L 98-107 (test code = 382) CO2 (BEAKER) 22 meq/L 22-29 (test code = 355) BLOOD UREA 20 mg/dL 7-21 NITROGEN (BEAKER) (test code = 354) CREATININE 1.18 mg/dL 0.57-1.25 (BEAKER) (test code = 358) GLUCOSE RANDOM 149 mg/dL 70-105 H (BEAKER) (test code = 652) CALCIUM (BEAKER) 8.8 mg/dL 8.4-10.2 (test code = 697) EGFR (BEAKER) 69 Interpretatio n of eGFR (test code = mL/min/1.73 values Stage De scription 1092) sq m Result G1 Lyn l or high >=90 G2 Mildly decreased 60-89 G3a Mildl y to moderately 45-5 9 G3b Moderately to s everely 30-44 G4 Severl y decreased 15-29 G5 Kidney failure <15Reported eGF R is based on the CKD-EPI 2020 equation that d oes not use a race coefficientEsti mated GFR is not as accur ate as Creatinine Anna barney in predicting glom erular filtration rate . Estimated GFR is not appl icable for dialysis patien ts Electric Needle Specialist ID - [id number] 02:46:11 Test Item Value Reference Range Interpretation Comments MAGNESIUM (BEAKER) (test code = 1.7 mg/dL 1.6-2.6 627) Electric Needle Specialist ID - BSCBC W/PLT COUNT & AUTO [id number] 02:27:31 Test Item Value Reference Range Interpretation Comments WHITE BLOOD CELL COUNT (BEAKER) 9.1 K/ L 3.5-10.5 (test code = 775) RED BLOOD CELL COUNT (BEAKER) 4.07 M/ L 4.63-6.08 L (test code = 761) HEMOGLOBIN (BEAKER) (test code = 12.8 GM/DL 13.7-17.5 L 410) HEMATOCRIT (BEAKER) (test code = 37.3 % 40.1-51.0 L 411) MEAN CORPUSCULAR VOLUME (BEAKER) 92 fL 79-92 (test code = 753) MEAN CORPUSCULAR HEMOGLOBIN 31.4 pg 25.7-32.2 (BEAKER) (test code = 751) MEAN CORPUSCULAR HEMOGLOBIN CONC 34.3 GM/DL 32.3-36.5 (BEAKER) (test code = 752) RED CELL DISTRIBUTION WIDTH 12.4 % 11.6-14.4 (BEAKER) (test code = 412) PLATELET COUNT (BEAKER) (test 184 K/CU MM 150-450 code = 756) MEAN PLATELET VOLUME (BEAKER) 9.6 fL 9.4-12.4 (test code = 754) NUCLEATED RED BLOOD CELLS 0 /100 WBC 0-0 (BEAKER) (test code = 413) NEUTROPHILS RELATIVE PERCENT 53 % (BEAKER) (test code = 429) LYMPHOCYTES RELATIVE PERCENT 37 % (BEAKER) (test code = 430) MONOCYTES RELATIVE PERCENT 8 % (BEAKER) (test code = 431) EOSINOPHILS RELATIVE PERCENT 2 % (BEAKER) (test code = 432) BASOPHILS RELATIVE PERCENT 1 % (BEAKER) (test code = 437) NEUTROPHILS ABSOLUTE COUNT 4.79 K/ L 1.78-5.38 (BEAKER) (test code = 670) LYMPHOCYTES ABSOLUTE COUNT 3.34 K/ L 1.32-3.57 (BEAKER) (test code = 414) MONOCYTES ABSOLUTE COUNT (BEAKER) 0.72 K/ L 0.30-0.82 (test code = 415) EOSINOPHILS ABSOLUTE COUNT 0.16 K/ L 0.04-0.54 (BEAKER) (test code = 416) BASOPHILS ABSOLUTE COUNT (BEAKER) 0.05 K/ L 0.01-0.08 (test code = 417) IMMATURE GRANULOCYTES-RELATIVE 0.30 % 0.00-1.00 PERCENT (BEAKER) (test code = 2801) CT BRAIN WITHOUT IV [id number] 21:59:00 [facility] : 1955 Sex: MEXAM/TECHNIQUE: Noncontrast CT of the head. Dose modulation, iterativereconstruction, and/or weight based adjustment of the mA/kV was utilizedto reduce the radiation dose to as low as reasonably achievable.INDICATION: Stroke, follow upCOMPARISON: CT head from 05/18/2023.FINDINGS: There is redemonstration of hyperattenuation in the left caudate body,unchanged in appearance to recent exam measuring approximately 2.0 x 0.8x 0.9 cm.There is redemonstration of remote infarcts of the right basal gangliaand right thalamus. There is at least moderate volume of chronicmicrovascular changes. No territorial burgess-white differentiation loss.Ventricles are normal in appearance. Basal cisterns are patent. Nomidline shift. Cerebellar tonsils are normal in appearance.Orbits are normal. Paranasal sinuses are clear. Mastoid air cells areclear. No acute osseous processes or suspicious osseous lesion. Midlinestructures are normal. Visualized face and neck are unremarkable.IMPRESSION:1. Similar appearance of hyperattenuation centered in the left caudatebody. This is favored represent hypertensive angiopathy, though an [facility] have this appearance on noncontrast CT. If not recently performed,CT angiography is recommended.2. Redemonstrated remote infarcts of the right basal ganglia andthalamus with at least moderateburden of chronic microvascular changes.Electronically Signed By: Drew Lindquist 22:01 CDTWorkstation Name: [id number] 20:59:49 Test Item Value Reference Range Interpretation Comments POC-GLUCOSE METER 213 mg/dL 70-110 H : TESTED A T [facility] 6720 ([employer]) (test code [facility], = 1538) [address]: Electric Needle Specialist/Techni linette ID = [id number] for BRIGHT TORRES POCT-GLUCOSE [id number] 17:51:38 Test Item Value Reference Range Interpretation Comments POC-GLUCOSE METER 223 mg/dL 70-110 H : TESTED A T [facility] 6720 (G[employer] Windows) (test code = [facility], 1538) [address]: Electric Needle Specialist/Techni linette ID = [id number] for Felecia coombsspencer Deann CT BRAIN WITHOUT IV [id number] 15:08:03 [facility] : 1955 Sex: MCT BRAIN WITHOUT IV CONTRASTINDICATION: Stroke, follow upCOMPARISON: NoneTECHNIQUE: Noncontrast axialCT imaging of the brain and skull. DOSE REDUCTION: Dose modulation, iterative reconstruction, and/orweight-based adjustment of the mA/kV was utilized to reduce theradiation dose to as low as reasonably achievable.FINDINGS:1.7 x 0.9 x 1.2 cm (0.9 cc) hyperdense focus within the left caudate,which, without comparison imaging, this favored to represent a smallhypertensive hemorrhage.Multiple remote infarcts of the basal ganglia. Advanced background senescent parenchymal volume loss. Midlinestructures are normally developed. Scattered foci of hypoattenuationare present throughout the periventricular and subcortical white matter,and, although nonspecific by imaging, statistically represent mildchronic microvascular ischemic changes in this age group.No hydrocephalus.Orbits are within normal limits.No obstructive paranasal sinus disease.IMPRESSION:1. 1.7 x 0.9 x 1.2 cm (0.9 cc) hyperdense focus withinthe leftcaudate, which, without comparison imaging, this favored to represent asmall hypertensive hemorrhage. Conceivably, this may represent residualcontrast staining if contrast enhanced exam was previously performed(given stated indication of "stroke follow-up")2. Multiple remote infarcts of the basal ganglia. If there is persistent clinical concern for intracranial pathology, MRexamination is recommended for further characterization.Electronically Signed By: Kady Ace05/18/2023 15:10 CDTWorkstation Name: [id number] 14:31:48 Test Item Value Reference Range Interpretation Comments RPR SCREEN (AKUA) (test code = Nonreactive Nonreactive 420) POCT-GLUCOSE [id number] 12:09:48 Test Item Value Reference Range Interpretation Comments POC-GLUCOSE METER 135 mg/dL 70-110 H : Notified RN/MD: (AKUA) (test code = TESTED AT [facility] 67[address] 5917) [facility], [address]: Electric Needle Specialist/Techni linette ID = [id number] for AYAH WILKINSON HEMOGLOBIN [id number] 10:03:41 Test Item Value Reference Range Interpretation Comments HEMOGLOBIN A1C 7.6 % See_Comment H [Automated m essage] ELECTROPHORESIS (AKUA) The system which (test code = 3811) generated this result transmitted ref erence range: <=5.6%. The reference range was not used to int erpret this result as normal/abnormal . "The A1c is measured using a NGSP-certified method. HbA1c value equal to or greater than 6.5% as thediagnosis cutoff for diabetes. An HbA1c value of 5.7- 6.4% indicates increased risk for diabetes (prediabetes)."Electric Needle Specialist ID - ADMPOCT- GLUCOSE [id number] 06:43:49 Test Item Value Reference Range Interpretation Comments POC-GLUCOSE METER 242 mg/dL 70-110 H : TESTED A T [facility] 6720 (BEAKER) (test code = [place], 1538) [address]: Electric Needle Specialist/Techni linette ID = [id number] for Or Susan chan CBC W/PLT COUNT & AUTO [id number] 05:08:46 Test Item Value Reference Range Interpretation Comments WHITE BLOOD CELL COUNT 8.9 K/ L 3.5-10.5 (BEAKER) (test code = 775) RED BLOOD CELL COUNT 4.08 M/ L 4.63-6.08 L (BEAKER) (test code = 761) HEMOGLOBIN (BEAKER) 12.5 GM/DL 13.7-17.5 L Release result per (test code = 410) [id number] HEMATOCRIT (BEAKER) 36.8 % 40.1-51.0 L (test code = 411) MEAN CORPUSCULAR VOLUME 90 fL 79-92 (BEAKER) (test code = 753) MEAN CORPUSCULAR 30.6 pg 25.7-32.2 HEMOGLOBIN (BEAKER) (test code = 751) MEAN CORPUSCULAR 34.0 GM/DL 32.3-36.5 HEMOGLOBIN CONC (BEAKER) (test code = 752) RED CELL DISTRIBUTION 12.7 % 11.6-14.4 WIDTH (BEAKER) (test code = 412) PLATELET COUNT (BEAKER) 175 K/CU MM 150-450 (test code = 756) MEAN PLATELET VOLUME 9.7 fL 9.4-12.4 (BEAKER) (test code = 754) NUCLEATED RED BLOOD 0 /100 WBC 0-0 CELLS (BEAKER) (test code = 413) NEUTROPHILS RELATIVE 60 % PERCENT (BEAKER) (test code = 429) LYMPHOCYTES RELATIVE 30 % PERCENT (BEAKER) (test code = 430) MONOCYTES RELATIVE 9 % PERCENT (BEAKER) (test code = 431) EOSINOPHILS RELATIVE 2 % PERCENT (BEAKER) (test code = 432) BASOPHILS RELATIVE 0 % PERCENT (BEAKER) (test code = 437) NEUTROPHILS ABSOLUTE 5.31 K/ L 1.78-5.38 COUNT (BEAKER) (test code = 670) LYMPHOCYTES ABSOLUTE 2.63 K/ L 1.32-3.57 COUNT (BEAKER) (test code = 414) MONOCYTES ABSOLUTE 0.79 K/ L 0.30-0.82 COUNT (BEAKER) (test code = 415) EOSINOPHILS ABSOLUTE 0.15 K/ L 0.04-0.54 COUNT (BEAKER) (test code = 416) BASOPHILS ABSOLUTE 0.02 K/ L 0.01-0.08 COUNT (BEAKER) (test code = 417) IMMATURE 0.30 % 0.00-1.00 GRANULOCYTES-RELATIVE PERCENT (BEAKER) (test code = 2801) [id number] 04:50:56 Test Item Value Reference Range Interpretation Comments PHOSPHORUS (BEAKER) 3.4 mg/dL 2.3-4.7 Specimen slightly (test code = 604) hemolyzed [employer]ist ID - EMBASIC METABOLIC [id number] 04:50:56 Test Item Value Reference Range Interpretation Comments SODIUM (BEAKER) 140 meq/L 136-145 (test code = 381) POTASSIUM 3.7 meq/L 3.5-5.1 Specimen slight ly (BEAKER) (test hemolyzed code = 379) CHLORIDE (BEAKER) 109 meq/L 98-107 H (test code = 382) CO2 (BEAKER) 21 meq/L 22-29 L (test code = 355) BLOOD UREA 24 mg/dL 7-21 H NITROGEN (BEAKER) (test code = 354) CREATININE 1.61 mg/dL 0.57-1.25 H Specimen slight ly (BEAKER) (test hemolyzed code = 358) GLUCOSE RANDOM 275 mg/dL 70-105 H (BEAKER) (test code = 652) CALCIUM (BEAKER) 8.6 mg/dL 8.4-10.2 (test code = 697) EGFR (BEAKER) 47 Interpretatio n of eGFR (test code = mL/min/1.73 values Stage De scription 1092) sq m Result G1 Lyn l or high >=90 G2 Mildly decreased 60-89 G3a Mildl y to moderately 45-5 9 G3b Moderately to s everely 30-44 G4 Severl y decreased 15-29 G5 Kidney failure <15Reported eGF R is based on the CKD-EPI 2020 equation that d oes not use a race coefficientEsti mated GFR is not as accur ate as Creatinine Anna savita in predicting glom erular filtration rate . Estimated GFR is not appl icable for dialysis patien ts Electric Needle Specialist ID - EMLIPID [id number] 04:50:56 Test Item Value Reference Range Interpretation Comments TRIGLYCERIDES (BEAKER) 158 mg/dL Speci men slightly (test code = 540) hemolyzed CHOLESTEROL (BEAKER) 150 mg/dL Specime n slightly (test code = 631) hemolyzed HDL CHOLESTEROL (BEAKER) 25 mg/dL (test code = 976) LDL CHOLESTEROL 93 mg/dL CALCULATED (BEAKER) (test code = 633) Triglyceride Reference Range: Low Risk <150 Borderline 150-199 High Risk 200- 499 Very High Risk >=500Cholesterol Reference Range: Low Risk <200 Borderline 200-239 High Risk >240HDL Cholesterol Reference Range: Low Risk >=60 High Risk <40LDL Cholesterol Reference Range: Optimal <100 Near Optimal 100-129 Borderline 130-159 High 160-189 Very High >=190 Electric Needle Specialist ID - [id number] 04:50:55 Test Item Value Reference Range Interpretation Comments MAGNESIUM (BEAKER) 2.0 mg/dL 1.6-2.6 Specimen slightly (test code = 627) hemolyzed Electric Needle Specialist ID - EMPROTHROMBIN TIME/[id number] 04:44:54 Test Item Value Reference Range Interpretation Comments PROTIME (BEAKER) (test code = 15.0 seconds 11.9-14.2 H 759) INR (BEAKER) (test code = 370) 1.17 <=5.90 RECOMMENDED COUMADIN/WARFARIN INR THERAPY RANGESSTANDARD DOSE: 2.0 - 3.0 Includes: PROPHYLAXIS for venous thrombosis, systemic embolization; TREATMENT for venous thrombosis and/or pulmonary embolus.HIGH RISK: Target INR is 2.5-3.5 for patients with mechanical heart valves.COMPREHENSIVE METABOLIC PANEL 2023-05-17 20:47:02 Test Item Value Reference Range Interpretation Comments TOTAL PROTEIN 6.0 gm/dL 6.0-8.3 Specimen sligh tly (BEAKER) (test hemolyzed code = 770) ALBUMIN (BEAKER) 3.6 g/dL 3.5-5.0 Specimen sl ightly (test code = 1145) hemolyzed ALKALINE 78 U/L 40-150 PHOSPHATASE (BEAKER) (test code = 346) BILIRUBIN TOTAL 0.3 mg/dL 0.2-1.2 Specimen sli ghtly (BEAKER) (test hemolyzed code = 377) SODIUM (BEAKER) 142 meq/L 136-145 (test code = 381) POTASSIUM (BEAKER) 3.9 meq/L 3.5-5.1 Specimen slightly (test code = 379) hemolyzed CHLORIDE (BEAKER) 112 meq/L 98-107 H (test code = 382) CO2 (BEAKER) (test 23 meq/L 22-29 code = 355) BLOOD UREA 16 mg/dL 7-21 NITROGEN (BEAKER) (test code = 354) CREATININE 1.28 mg/dL 0.57-1.25 H Specimen slight ly (BEAKER) (test hemolyzed code = 358) GLUCOSE RANDOM 124 mg/dL 70-105 H (BEAKER) (test code = 652) CALCIUM (BEAKER) 7.7 mg/dL 8.4-10.2 L (test code = 697) AST (SGOT) 19 U/L 5-34 Specimen slight ly (BEAKER) (test hemolyzed code = 353) ALT (SGPT) 12 U/L 6-55 Specimen slight ly (BEAKER) (test hemolyzed code = 347) EGFR (BEAKER) 62 Interpretatio n of eGFR (test code = 1092) mL/min/1.[address] age Description sq m Result G1 Lyn l or high >=90 G2 Mildly decreased 60-89 G3a Mildl y to moderately 45-5 9 G3b Moderately to s everely 30-44 G4 Severl y decreased 15-29 G5 Kidney failure <15Reported eGF R is based on the CKD-EPI 2021 equation that d oes not use a race coefficientEsti mated GFR is not as accur ate as Creatinine Anna barney in predicting glom erular filtration rate . Estimated GFR is not appl icable for dialysis patien ts [id number] 20:43:06 Test Item Value Reference Range Interpretation Comments PHOSPHORUS (BEAKER) (test code = 3.0 mg/dL 2.3-4.7 604) [id number] 20:43:06 Test Item Value Reference Range Interpretation Comments MAGNESIUM (BEAKER) (test code = 1.8 mg/dL 1.6-2.6 627) POCT-GLUCOSE [id number] 20:31:51 Test Item Value Reference Range Interpretation Comments POC-GLUCOSE METER 163 mg/dL 70-110 H : TESTED A T [facility] 6720 (BEAKER) (test code = GABE [place], 1538) [address]: Electric Needle Specialist/Techni linette ID = [id number] for Or rocio Susan TSH/FREE T4 IF [id number] 20:27:09 Test Item Value Reference Range Interpretation Comments THYROID STIMULATING HORMONE 1.776 uIU/mL 0.350-4.940 (BEAKER) (test code = 772) Electric Needle Specialist ID - EMVITAMIN [id number] 20:27:08 Test Item Value Reference Range Interpretation Comments VITAMIN B12 (BEAKER) (test code = 215 pg/mL 213-816 774) Electric Needle Specialist ID - EMHIGH SENSITIVITY TROPONIN [id number] 20:14:42 Test Item Value Reference Range Interpretation Comments HIGH SENSITIVITY TROPONIN I (test 15 pg/ml <=35 code = 0186278) Electric Needle Specialist ID - BSThe COLLEGE DEAN STAT High Sensitivity Troponin-I results should be used in conjunctionwith other diagnostic information such as ECG, clinical observations and information, and patient symptoms to aid in the diagnosis of [facility].CBC W/PLT COUNT & AUTO [id number] 19:42:17 Test Item Value Reference Range Interpretation Comments WHITE BLOOD CELL COUNT (BEAKER) 11.6 K/ L 3.5-10.5 H (test code = 775) RED BLOOD CELL COUNT (BEAKER) 5.09 M/ L 4.63-6.08 (test code = 761) HEMOGLOBIN (BEAKER) (test code = 15.5 GM/DL 13.7-17.5 410) HEMATOCRIT (BEAKER) (test code = 45.5 % 40.1-51.0 411) MEAN CORPUSCULAR VOLUME (BEAKER) 89 fL 79-92 (test code = 753) MEAN CORPUSCULAR HEMOGLOBIN 30.5 pg 25.7-32.2 (BEAKER) (test code = 751) MEAN CORPUSCULAR HEMOGLOBIN CONC 34.1 GM/DL 32.3-36.5 (BEAKER) (test code = 752) RED CELL DISTRIBUTION WIDTH 12.4 % 11.6-14.4 (BEAKER) (test code = 412) PLATELET COUNT (BEAKER) (test 198 K/CU MM 150-450 code = 756) MEAN PLATELET VOLUME (BEAKER) 9.7 fL 9.4-12.4 (test code = 754) NUCLEATED RED BLOOD CELLS 0 /100 WBC 0-0 (BEAKER) (test code = 413) NEUTROPHILS RELATIVE PERCENT 67 % (BEAKER) (test code = 429) LYMPHOCYTES RELATIVE PERCENT 23 % (BEAKER) (test code = 430) MONOCYTES RELATIVE PERCENT 8 % (BEAKER) (test code = 431) EOSINOPHILS RELATIVE PERCENT 1 % (BEAKER) (test code = 432) BASOPHILS RELATIVE PERCENT 0 % (BEAKER) (test code = 437) NEUTROPHILS ABSOLUTE COUNT 7.83 K/ L 1.78-5.38 H (BEAKER) (test code = 670) LYMPHOCYTES ABSOLUTE COUNT 2.68 K/ L 1.32-3.57 (BEAKER) (test code = 414) MONOCYTES ABSOLUTE COUNT (BEAKER) 0.92 K/ L 0.30-0.82 H (test code = 415) EOSINOPHILS ABSOLUTE COUNT 0.12 K/ L 0.04-0.54 (BEAKER) (test code = 416) BASOPHILS ABSOLUTE COUNT (BEAKER) 0.03 K/ L 0.01-0.08 (test code = 417) IMMATURE GRANULOCYTES-RELATIVE 0.30 % 0.00-1.00 PERCENT (BEAKER) (test code = 2801) POCT GLUCOSE (AUTOMATED)2023-02-01 13:10:42 Test Item Value Reference Range Interpretation Comments POCT GLU (test code = 1766891233) 228 mg/dL 70-110 H Lab Interpretation (test code = Abnormal 51896-8) [facility] ([facility])2023-02-01 13:10:42 Test Item Value Reference Range Interpretation Comments POCT GLU (test code = 4280044472) 228 mg/dL 70-110 H Lab Interpretation (test code = Abnormal 68253-3) [facility] GLUCOSE (AUTOMATED)2023-02-01 13:10:42 Test Item Value Reference Range Interpretation Comments POCT GLU (test code = 2911368799) 228 mg/dL 70-110 H Lab Interpretation (test code = Abnormal 67926-6) [facility] [id number] 07:07:16 Test Item Value Reference Range Interpretation Comments VIT B12 (test code = 284 pg/mL 240-930 1005403631) MODESTO (test code = MODESTO) Biotin has been reported to cause a positive bias, interpret results relative to patient's use of biotin. Lab Interpretation (test Normal code = 70552-4) [facility], [id number] 07:07:16 Test Item Value Reference Range Interpretation Comments VIT B12 (test code = 284 pg/mL 240-930 5926726713) MODESTO (test code = MODESTO) Biotin has been reported to cause a positive bias, interpret results relative to patient's use of biotin. Lab Interpretation (test Normal code = 17359-7) [facility], [id number] 07:03:34 Test Item Value Reference Range Interpretation Comments VIT D 25OH (test code = 19 ng/mL 25-80 L 35248-4) MODESTO (test code = MODESTO) Deficiency: <20 ng/mLInsufficiency: 20-24 ng/mLOptimal: 25-80 ng/mL Lab Interpretation (test Abnormal code = 47071-7) [facility], [id number] 07:03:34 Test Item Value Reference Range Interpretation Comments VIT D 25OH (test code = 19 ng/mL 25-80 L 56424-7) MODESTO (test code = MODESTO) Deficiency: <20 ng/mLInsufficiency: 20-24 ng/mLOptimal: 25-80 ng/mL Lab Interpretation (test Abnormal code = 23921-5) [facility] [id number] 22:23:56 Test Item Value Reference Range Interpretation Comments TSH (test code = 2.70 See_Comment [Automated message] [id number]) The system [employer] generated this result transmitted ref erence range: 0.45 - 4 .70 mIU/L. The refe rence range was not u sed to interpret this result as normal/abnor mal. Lab Interpretation (test Normal code = 79268-7) [facility] [id number] 22:23:56 Test Item Value Reference Range Interpretation Comments TSH (test code = 2.70 See_Comment [Automated message] [id number]) The system [employer] generated this result transmitted ref erence range: 0.45 - 4 .70 mIU/L. The refe rence range was not u sed to interpret this result as normal/abnor mal. Lab Interpretation (test Normal code = 63019-3) [facility] [id number] 22:10:50 Test Item Value Reference Range Interpretation Comments FREE T4 (test code = 1.14 See_Comment [Autom ated message] [id number]) The system [employer] generated this result transmitted ref erence range: 0.78 - 2 .20 ng/dL:. The ref erence range was not u sed to interpret this result as normal/abnor mal. Lab Interpretation (test Normal code = 88765-1) [facility] [id number] 22:10:50 Test Item Value Reference Range Interpretation Comments FREE T4 (test code = 1.14 See_Comment [Autom ated message] 7220826846) The system [employer] generated this result transmitted ref erence range: 0.78 - 2 .20 ng/dL:. The ref erence range was not u sed to interpret this result as normal/abnor mal. Lab Interpretation (test Normal code = 21537-7) [facility] [id number] 22:09:27 Test Item Value Reference Range Interpretation Comments FREE T3 (test code = 0297075835) 3.44 pg/mL 2.77-5.27 Lab Interpretation (test code = Normal 21068-3) [facility] 22:09:27 Test Item Value Reference Range Interpretation Comments FREE T3 (test code = 8510752760) 3.44 pg/mL 2.77-5.27 Lab Interpretation (test code = Normal 09709-6) [facility] (A1C)2022-11-18 22:04:11 Test Item Value Reference Range Interpretation Comments HGB A1C (test code = 9.0 % 4.0-5.7 H 4548-4) MODESTO (test code = MODESTO) Reference RangesNormal: <5.7%Prediabetes: 5.7 - 6.4%Diabetes: > 6.5% Lab Interpretation (test Abnormal code = 53660-5) [facility]C)2022-11-18 22:04:11 Test Item Value Reference Range Interpretation Comments HGB A1C (test code = 9.0 % 4.0-5.7 H 4548-4) MODESTO (test code = MODESTO) Reference RangesNormal: <5.7%Prediabetes: 5.7 - 6.4%Diabetes: > 6.5% Lab Interpretation (test Abnormal code = 70544-8) [facility] [id number] 22:02:47 Test Item Value Reference Range Interpretation Comments NT-proBNP (test code = 199 pg/mL <=125 H 3614829588) MODESTO (test code = MODESTO) Biotin has been reported to cause a negative bias, interpret results relative to patient's use of biotin. Lab Interpretation (test Abnormal code = 76400-9) [facility] [id number] 22:02:47 Test Item Value Reference Range Interpretation Comments NT-proBNP (test code = 199 pg/mL <=125 H 8949791640) MODESTO (test code = MODESTO) Biotin has been reported to cause a negative bias, interpret results relative to patient's use of biotin. Lab Interpretation (test Abnormal code = 49608-6) [facility] (71627)(TOTAL CHOLESTEROL, TRIGLYCERIDES, HDL)2022-11-18 21:55:26 Test Item Value Reference Range Interpretation Comments CHOL (test code = 1299807020) 199 mg/dL 120-200 HDL (test code = 6730343935) 43 mg/dL >=40 HDLC RATIO (test code = 7836550593) 4.6 <=5.0 TRIG (test code = 3235407758) 210 mg/dL 30-170 H LDL CHOL (test code = 09483-0) 114 mg/dL <=160 VLDL (test code = 0627031200) 42 mg/dL 5-60 Lab Interpretation (test code = Abnormal 97440-2) [facility] (09475)(TOTAL CHOLESTEROL, TRIGLYCERIDES, HDL)2022-11-18 21:55:26 Test Item Value Reference Range Interpretation Comments CHOL (test code = 2007529366) 199 mg/dL 120-200 HDL (test code = 7100900123) 43 mg/dL >=40 HDLC RATIO (test code = 8025169508) 4.6 <=5.0 TRIG (test code = 7120379242) 210 mg/dL 30-170 H LDL CHOL (test code = 93006-5) 114 mg/dL <=160 VLDL (test code = 2909102221) 42 mg/dL 5-60 Lab Interpretation (test code = Abnormal 00541-4) [facility] METABOLIC PANEL (56152)2022-11-18 21:55:05 Test Item Value Reference Range Interpretation Comments NA (test code = 140 mmol/L 135-145 0145273217) K (test code = 3.8 mmol/L 3.5-5.0 9765073822) CL (test code = 101 mmol/L 98-108 1648726801) CO2 TOTAL (test code = 27 mmol/L 23-31 2660254200) AGAP (test code = 12 2-16 8761243471) BUN (test code = 27 mg/dL 7-23 H 5673212772) GLUCOSE (test code = 211 mg/dL 70-110 H 3333826138) CREATININE (test code = 1.25 mg/dL 0.60-1.25 1430605054) TOTAL BILI (test code = 0.5 mg/dL 0.1-1.2 6278961385) CALCIUM (test code = 9.7 mg/dL 8.6-10.6 9912496437) T PROTEIN (test code = 7.8 g/dL 6.3-8.2 6094932728) ALBUMIN (test code = 4.5 g/dL 3.5-5.0 0989672753) ALK PHOS (test code = 106 U/L 34-122 2536873321) ALTv (test code = 21 U/L 5-50 1742-6) AST(SGOT) (test code = 23 U/L 13-40 5842128888) eGFR (test code = 57.8 mL/min/1.73m2 0343325858) MODESTO (test code = MODESTO) Association of [...] tests). Lab Interpretation Abnormal (test code = 19877-0) [facility]. METABOLIC PANEL (47692)2022-11-18 21:55:05 Test Item Value Reference Range Interpretation Comments NA (test code = 140 mmol/L 135-145 3603308334) K (test code = 3.8 mmol/L 3.5-5.0 3216556778) CL (test code = 101 mmol/L 98-108 0702990580) CO2 TOTAL (test code = 27 mmol/L 23-31 0146321232) AGAP (test code = 12 2-16 4219971749) BUN (test code = 27 mg/dL 7-23 H 4561557785) GLUCOSE (test code = 211 mg/dL 70-110 H 9712823953) CREATININE (test code = 1.25 mg/dL 0.60-1.25 1528369005) TOTAL BILI (test code = 0.5 mg/dL 0.1-1.9 1868782208) CALCIUM (test code = 9.7 mg/dL 8.6-10.6 2131164933) T PROTEIN (test code = 7.8 g/dL 6.3-8.2 4730200832) ALBUMIN (test code = 4.5 g/dL 3.5-5.0 8850397988) ALK PHOS (test code = 106 U/L 34-122 5677134247) ALTv (test code = 21 U/L 5-50 1742-6) AST(SGOT) (test code = 23 U/L 13-40 8656396045) eGFR (test code = 57.8 mL/min/1.73m2 9024132321) MODESTO (test code = MODESTO) Association of [...] tests). Lab Interpretation Abnormal (test code = 35805-6) [facility] WITH [id number] 21:09:58 Test Item Value Reference Range Interpretation Comments WBC (test code = 11.43 See_Comment H [Automated 6690-2) message] The sy stem which generated this result transmitted reference range : 4.20 - 10.70 10*3/?L. The reference range was not used to interpret this result as normal/abnormal . RBC (test code = 4.82 See_Comment [Automated 789-8) message] The sy stem which generated this [...] RDW-SD (test code = 43.9 fL 38.5-51.6 30389-6) RDW-CV (test code = 13.1 % 12.1-15.4 788-0) PLT (test code = 190 See_Comment [Automated 777-3) message] The sy stem which generated this result transmitted reference range : 150 - 328 10*3/ ?L. The reference r chelsea was not used to interpret this result as normal/abnormal . MPV (test code = 9.7 fL 9.8-13.0 L 68918-4) NRBC/100 WBC (test 0.0 See_Comment [Automat ed code = 2445372928) message] The system which generated this result transmitted reference range : 0.0 - 10.0 /100 WBCs. The refer ence range was not u sed to interpret th is result as normal/abnormal . NRBC x10^3 (test code See_Comment [Auto mated = 0640886828) message] The s ystem which generated this result transmitted reference range : 10*3/?L. The reference range was not used to interpret this result as normal/abnormal . GRAN MAT (NEUT) % 57.0 % (test code = 770-8) IMM GRAN % (test code 0.40 % = 7746805674) LYMPH % (test code = 33.3 % 736-9) MONO % (test code = 7.8 % 5905-5) EOS % (test code = 1.2 % 713-8) BASO % (test code = 0.3 % 706-2) GRAN MAT x10^3(ANC) 6.50 10*3/uL 1.99-6.95 (test code = 5564228327) IMM GRAN x10^3 (test 0.05 10*3/uL 0.00-0.06 code = 7015261039) LYMPH x10^3 (test code 3.81 10*3/uL 1.09-3.23 H = 731-0) MONO x10^3 (test code 0.89 10*3/uL 0.36-1.02 = 742-7) EOS x10^3 (test code = 0.14 10*3/uL 0.06-0.53 711-2) BASO x10^3 (test code 0.04 10*3/uL 0.01-0.09 = 704-7) Lab Interpretation Abnormal (test code = 49095-8) [facility] WITH [id number] 21:09:58 Test Item Value Reference Range Interpretation Comments WBC (test code = 11.43 See_Comment H [Automated 1502-2) message] The sy stem which generated this result transmitted reference range : 4.20 - 10.70 10*3/?L. The reference range was not used to interpret this result as normal/abnormal . RBC (test code = 4.82 See_Comment [Automated 849-8) message] The sy stem which generated this [...] RDW-SD (test code = 43.9 fL 38.5-51.6 56168-5) RDW-CV (test code = 13.1 % 12.1-15.4 788-0) PLT (test code = 190 See_Comment [Automated 777-3) message] The sy stem which generated this result transmitted reference range : 150 - 328 10*3/ ?L. The reference r chelsea was not used to interpret this result as normal/abnormal . MPV (test code = 9.7 fL 9.8-13.0 L 58551-2) NRBC/100 WBC (test 0.0 See_Comment [Automat ed code = 3609208020) message] The system which generated this result transmitted reference range : 0.0 - 10.0 /100 WBCs. The refer ence range was not u sed to interpret th is result as normal/abnormal . NRBC x10^3 (test code See_Comment [Auto mated = 2734663622) message] The s ystem which generated this result transmitted reference range : 10*3/?L. The reference range was not used to interpret this result as normal/abnormal . GRAN MAT (NEUT) % 57.0 % (test code = 770-8) IMM GRAN % (test code 0.40 % = 1303737607) LYMPH % (test code = 33.3 % 736-9) MONO % (test code = 7.8 % 5905-5) EOS % (test code = 1.2 % 713-8) BASO % (test code = 0.3 % 706-2) GRAN MAT x10^3(ANC) 6.50 10*3/uL 1.99-6.95 (test code = 3716007530) IMM GRAN x10^3 (test 0.05 10*3/uL 0.00-0.06 code = 2628242686) LYMPH x10^3 (test code 3.81 10*3/uL 1.09-3.23 H = 731-0) MONO x10^3 (test code 0.89 10*3/uL 0.36-1.02 = 742-7) EOS x10^3 (test code = 0.14 10*3/uL 0.06-0.53 711-2) BASO x10^3 (test code 0.04 10*3/uL 0.01-0.09 = 704-7) Lab Interpretation Abnormal (test code = 71449-7) [facility] HEMOGLOBIN A1C [id number] 15:53:00 Test Item Value Reference Range Interpretation Comments POCT HBA1C (test code = 4548-4) 6.2 % 4-6 A Lab Interpretation (test code = Abnormal 60539-1) [facility] HEMOGLOBIN A1C [id number] 15:53:00 Test Item Value Reference Range Interpretation Comments POCT HBA1C (test code = 4548-4) 6.2 % 4-6 A Lab Interpretation (test code = Abnormal 19004-5) [facility]
[2023-06-01] MEDS ORDERED: NA CHLORIDE 0.9% 1,000 ML ONE ×2 (00:31→02:55)
[2023-06-01 00:41] LABS: Absolute Lymphocytes (CBC) 3.1 K/uL (0.7-4.9); Hematocrit 41.2 % (39.6-49.0); Lymphocytes % 27.8 % (15.3-44.8); MCV 91.3 fL (80-100); MPV 7.7 fL (7.6-11.3); Platelets 251 thou/uL (152-406); Protime INR 1.16; RBC Red Blood Cell Count 4.52 M/uL (4.33-5.43)
[2023-06-01 01:00] LABS: Albumin 3.9 g/dL (3.4-5.0); Bilirubin Direct 0.1 mg/dL (0-0.2); Bilirubin Indirect, Calculated 0.2 mg/dL (0.2-0.8); Bilirubin Total 0.3 mg/dL (0.2-1.0); Magnesium 2.2 mg/dL (1.6-2.4); Potassium 4.4 mEq/L (3.5-5.1); Protein, Total 8.6 g/dL (6.4-8.2); Troponin High Sensitivity 17.6 pg/mL (<58.9)
--- NOTE | 2023-06-01 02:37 | EDPHYS ---
Physician Documentation [facility] Name: Jabier King Age: 67 yrs Sex: Male : 1955 Arrival Date: 05/31/2023 Time: 23:05 Bed 16 Private MD: ED Physician Yair Hdz HPI: 05/31 23:20 This 67 yrs old Black Male presents to ER via EMS with complaints of Dizziness. cp 23:20 The patient has experienced syncope, lost consciousness. Onset: The symptoms/episode cp began/occurred just prior to arrival. Duration: This was a single episode, that lasted an unknown period of time. 23:20 Associated signs and symptoms: Pertinent positives: abdominal pain, weakness, Pertinent cp negatives: chest pain, confusion, diaphoresis, diarrhea, headache, palpitations, vomiting, fever. 23:20 Associated injury: The patient did not suffer any apparent associated injury. Current cp symptoms: general weakness. Historical: - Allergies: 23:08 Bactrim; as6 - PMHx: 23:08 Hypertension; Diabetes - NIDDM; CVA; High Cholesterol; as6 - PSHx: 23:08 None; as6 - Immunization history:: Adult Immunizations up to date, Client reports receiving the 2nd dose of the Covid vaccine. - Social history:: Smoking status: Patient/guardian denies using tobacco, Stopped _ months ago 1. ROS: 23:25 Constitutional: Negative for body aches, chills, fever, poor PO intake, cp 23:25 Eyes: Negative for injury, pain, redness, and discharge, cp 23:25 ENT: Negative for drainage from ear(s), ear pain, sore throat, difficulty swallowing, difficulty handling secretions, 23:25 Cardiovascular: Negative for chest pain, edema, palpitations, 23:25 Respiratory: Negative for cough, shortness of breath, wheezing, 23:25 Abdomen/GI: Positive for abdominal pain, Negative for vomiting, diarrhea, constipation, black/tarry stool, rectal bleeding, 23:25 Neuro: Positive for syncope, general weakness, Negative for altered mental status, headache, seizure activity, 23:25 All other systems are negative, Exam: 23:28 Constitutional: The patient appears in no acute distress, alert, awake, cp non-diaphoretic, non-toxic, well developed, well nourished, 23:28 Head/Face: Normocephalic, atraumatic. cp 23:28 Eyes: Periorbital structures: appear normal, Pupils: equal, round, and reactive to light and accomodation, Extraocular movements: intact throughout, Conjunctiva: normal, no exudate, no injection, Sclera: no appreciated abnormality, Lids and lashes: appear normal, bilaterally, 23:28 ENT: External ear(s): are unremarkable, Nose: is normal, Mouth: Lips: moist, Oral mucosa: pink and intact, moist, Posterior pharynx: is normal, airway is patent, no erythema, no exudate, 23:28 Neck: ROM/movement: is normal, is supple, without pain, no range of motions limitations, no meningismus, no nuchal rigidity, 23:28 Chest/axilla: Inspection: normal, Palpation: is normal, no crepitus, no tenderness, 23:28 Cardiovascular: Rate: normal, Rhythm: regular, Edema: is not appreciated, JVD: is not appreciated, 23:28 Respiratory: the patient does not display signs of respiratory distress, Respirations: normal, no use of accessory muscles, no retractions, labored breathing, is not present, Breath sounds: are clear throughout, no decreased breath sounds, no stridor, no wheezing, 23:28 Abdomen/GI: Inspection: abdomen appears normal, Bowel sounds: active, all quadrants, Palpation: soft, in all quadrants, mild abdominal tenderness, in the epigastric area, rebound tenderness, is not appreciated, involuntary guarding, is not appreciated, 23:28 Back: pain, is absent, ROM is normal, 23:28 Neuro: Orientation: to person, place \T\ time. Mentation: able to follow commands, slow to respond, Motor: moves all fours, general weakness, Sensation: no acute changes, 06/01 01:00 ECG was reviewed by the Attending Physician. cp Vital Signs: 05/31 23:06 BP 76 / 60; Pulse 62; Resp 18 S; Temp 98.2(TE); Pulse Ox 98% on R/A; Weight 84.82 kg as6 (R); Height 5 ft. 5 in. (R); Pain 4/10; 06/01 00:16 BP 81 / 62; Pulse 57; Resp 19; Pulse Ox 97% ; jj7 01:15 BP 108 / 71; Pulse 53; Resp 20; Pulse Ox 99% ; jj7 02:06 BP 96 / 66; Pulse 58; Resp 20; Pulse Ox 98% ; jj7 03:10 BP 107 / 70; Pulse 65; Resp 16; Pulse Ox 100% ; Pain 0/10; jj7 04:15 BP 117 / 76; Pulse 53; Resp 17; Pulse Ox 99% ; jj7 05/31 23:06 Body Mass Index 31.12 (84.82 kg, 165.1 cm) as6 05/31 23:06 Pain Scale: Adult as6 03:10 Pain Scale: Adult jj7 MDM: 05/31 23:18 Patient medically screened. cp 06/01 00:00 Differential Diagnosis: cardiac arrhythmia, cerebrovascular accident, drug effect, GI cp bleed, seizure, sepsis, vasovagal episode, kidney failure, acute KS. 02:15 Data reviewed: vital signs, nurses notes, lab test result(s), EKG, radiologic studies, cp plain films. 02:15 Consideration of Admission/Observation Patient was admitted/placed on observation. cp Independent interpretation of the following test(s) in the Emergency Department EKG: See my EKG interpretation above. Historians other than the Patient: Spouse/Significant Other: assists with HPI. Care significantly affected by the following chronic conditions: Diabetes, Hypertension. Awaiting: CT scan results, radiologist reading. 05/31 23:25 Order name: Basic Metabolic Panel; Complete Time: 01:17 cp 06/01 01:17 Interpretation: Normal except: NA 135; GLUC 143; BUN 44; CRE 3.05; GFR 22. cp 05/31 23:25 Order name: CBC with Diff; Complete Time: 00:59 cp 06/01 00:59 Interpretation: Normal except: WBC 11.00. cp 05/31 23:25 Order name: LFT's; Complete Time: 01:17 cp 05/31 23:25 Order name: Magnesium; Complete Time: 01:17 cp 05/31 23:25 Order name: NT PRO-BNP; Complete Time: 01:17 cp 05/31 23:25 Order name: PT-INR; Complete Time: 00:59 cp 05/31 23:25 Order name: Troponin HS; Complete Time: 01:17 cp 05/31 23:25 Order name: Urinalysis W/Microscopic cp 05/31 23:25 Order name: Blood Culture Adult (2) cp 05/31 23:25 Order name: Lactate w/ 2H reflex if indic.; Complete Time: 00:59 cp 06/01 00:59 Interpretation: Reviewed. cp 06/01 01:55 Order name: Glucose, Ancillary Testing; Complete Time: 02:08 EDMS 06/01 02:09 Interpretation: Reviewed. 06/01 05:18 Order name: CBC with Automated Diff EDMS 05/31 23:25 Order name: CT Head Brain wo Cont cp 05/31 23:25 Order name: XRAY Chest (1 view) cp 06/01 01:17 Order name: CT Chest Abdomen Pelvis W/O Contrast cp 05/31 23:25 Order name: EKG; Complete Time: 23:26 cp 05/31 23:25 Order name: Cardiac monitoring; Complete Time: 00:26 05/31 23:25 Order name: EKG - Nurse/Tech; Complete Time: 05:43 05/31 23:25 Order name: IV Saline Lock; Complete Time: 00:26 05/31 23:25 Order name: Labs collected and sent; Complete Time: 00:26 cp 05/31 23:25 Order name: O2 Per Protocol; Complete Time: 00:26 cp 05/31 23:25 Order name: O2 Sat Monitoring; Complete Time: 00:26 05/31 23:33 Order name: Accucheck Blood Glucose; Complete Time: 05:40 06/01 04:18 Order name: Correa; Complete Time: 05:41 cp EC:00 Rate is 50 beats/min. Rhythm is regular. TN interval is normal. QRS interval is normal. cp QT interval is prolonged at 506 msec. T waves are Inverted in lead aVR. Interpreted by me. Reviewed by me. Administered Medications: 00:25 Drug: NS 0.9% IV 1000 ml IV at 1 bolus Per protocol; 1000 mL bolus Route: IV; Rate: 1 jj7 bolus; Site: left antecubital; 01:49 Follow up: IV Status: Completed infusion j7 02:57 Follow up: IV Status: Completed infusion j7 02:45 Drug: NS 0.9% IV 1000 ml IV at 100 ml/hr continuous Route: IV; Rate: 100 ml/hr; Site: j left antecubital; Disposition Summary: 06/01/23 02:37 Hospitalization Ordered Notes: Hospitalization Status: Inpatient Admission cp Condition: Fair cp Problem: new cp Symptoms: have improved cp Bed/Room Type: Standard cp Provider: Yasemin Davila(06/01/23 02:51) cp Location: Intensive Care Unit(06/01/23 05:44) cg Room Assignment: 5-(06/01/23 05:44) cg Diagnosis - Weakness cp - Syncope cp - Acute kidney failure, unspecified cp Forms: - Medication Reconciliation Form cp - SBAR form cp - Leadership Thank You Letter cp Addendum: 06/03/2023 01:55 Co-signature as Attending Physician, Yair Hdz MD. e c2 Signatures: Dispatcher [employer] EDStef Abbott PA PA cp Zarina Subramanian, RN RN cg Alex Maurice RN RN as6 Tom Lara RN RN jj7 Yair Hdz MD MD ec2 Corrections: (The following items were deleted from the chart) 06/01 02:51 02:37 Shannan Short cp cp 03:36 02:37 Telemetry/MedSurg (Inpatient) cp cg 03:36 02:37 cp cg 05:44 03:36 BR ER HOLD cg cg 05:44 03:36 ERHOLD- cg cg
--- NOTE | 2023-06-01 02:37 | ER ---
Nurse's Notes [facility] Name: Jabier King Age: 67 yrs Sex: Male : 1955 Arrival Date: 05/31/2023 Time: 23:05 Bed 16 Private MD: Diagnosis: Weakness;Syncope;Acute kidney failure, unspecified Presentation: 05/31 23:06 Chief complaint: EMS states: called out for dizziness, weakness, near syncopal episode as6 that started today. Coronavirus screen: At this time, the client does not indicate any symptoms associated with coronavirus-19. Ebola Screen: No symptoms or risks identified at this time. Initial Sepsis Screen: Does the patient meet any 2 criteria? No. Patient's initial sepsis screen is negative. Does the patient have a suspected source of infection? No. Patient's initial sepsis screen is negative. Risk Assessment: Do you want to hurt yourself or someone else? Patient reports no desire to harm self or others. Onset of symptoms was May 31, 2023. 23:06 Method Of Arrival: EMS: [facility] as6 23:06 Acuity: TARA 2 as6 23:11 Care prior to arrival: Medication(s) given: Normal saline infusion, IV initiated. 20 as6 GA, in the left antecubital area, Glucose check: 144. Historical: - Allergies: 23:08 Bactrim; as6 - PMHx: 23:08 Hypertension; Diabetes - NIDDM; CVA; High Cholesterol; as6 - PSHx: 23:08 None; as6 - Immunization history:: Adult Immunizations up to date, Client reports receiving the 2nd dose of the Covid vaccine. - Social history:: Smoking status: Patient/guardian denies using tobacco, Stopped _ months ago 1. Screenin:15 [facility] ED Fall Risk Assessment (Adult) History of falling in the last 3 months, jj7 including since admission Yes- single mechanical fall (1 pt) Confusion or Disorientation No (0 pts) Intoxicated or Sedated No (0 pts) Impaired Gait Yes (1 pt) Mobility Assist Device Used No (0 pt) Altered Elimination No (0 pt) Score/Fall Risk Level 0 - 2 = Low Risk Oriented to surroundings, Maintained a safe environment, Educated pt \T\ family on fall prevention, incl call for assistance when getting out of bed. Abuse screen: Denies threats or abuse. Nutritional screening: No deficits noted. Tuberculosis screening: No symptoms or risk factors identified. Assessment: 23:15 General: Appears in no apparent distress. comfortable, Behavior is calm, cooperative, jj7 appropriate for age. Pain: Denies pain. Neuro: Reports dizziness, weakness. Vital Signs: 23:06 BP 76 / 60; Pulse 62; Resp 18 S; Temp 98.2(TE); Pulse Ox 98% on R/A; Weight 84.82 kg as6 (R); Height 5 ft. 5 in. (R); Pain 4/10; 06/01 00:16 BP 81 / 62; Pulse 57; Resp 19; Pulse Ox 97% ; jj7 01:15 BP 108 / 71; Pulse 53; Resp 20; Pulse Ox 99% ; jj7 02:06 BP 96 / 66; Pulse 58; Resp 20; Pulse Ox 98% ; jj7 03:10 BP 107 / 70; Pulse 65; Resp 16; Pulse Ox 100% ; Pain 0/10; jj7 04:15 BP 117 / 76; Pulse 53; Resp 17; Pulse Ox 99% ; jj7 05/31 23:06 Body Mass Index 31.12 (84.82 kg, 165.1 cm) as6 05/31 23:06 Pain Scale: Adult as6 03:10 Pain Scale: Adult jj7 ED Course: 05/31 23:06 Patient arrived in ED. as6 23:08 Triage completed. as6 23:09 Arm band placed on. as6 23:15 Patient has correct armband on for positive identification. Bed in low position. Call jj7 light in reach. Side rails up X2. Adult w/ patient. 23:15 No provider procedures requiring assistance completed. jj7 23:17 Stef Allred PA is PHCP. cp 23:18 Yair Hdz MD is Attending Physician. cp 23:44 Tom Lara RN is Primary Nurse. jj7 23:45 Maintain EMS IV. Dressing intact. Good blood return noted. Site clean \T\ dry. Gauge \T\ jj 7 site: 20G LEFT AC. 23:53 CT Head Brain wo Cont In Process Unspecified. EDMS 06/01 00:25 Lactate w/ 2H reflex if indic. Sent. jj7 00:25 Blood Culture Adult (2) Sent. jj7 00:26 Urinalysis W/Microscopic Sent. jj7 00:26 Basic Metabolic Panel Sent. jj 00:26 CBC with Diff Sent. jj 00:26 LFT's Sent. jj 00:26 Magnesium Sent. jj 00:26 NT PRO-BNP Sent. jj 00:26 PT-INR Sent. jj 00:26 Troponin HS Sent. jj 02:35 Shannan Short FNP is Hospitalizing Provider. cp 02:51 Yasemin Davila MD is Hospitalizing Provider. cp 04:06 IV discontinued, intact, bleeding controlled, No redness/swelling at site. Pressure kmf dressing applied. 04:06 Inserted saline lock: 22 gauge in left wrist, using aseptic technique. kmf 04:14 CT Chest Abdomen Pelvis W/O Contrast In Process Unspecified. EDMS 04:40 Correa cath inserted, using sterile technique, 16 Fr., by wy, balloon inflated, to oe gravity drainage, Patient tolerated. 06:30 Patient admitted, IV remains in place. jj7 Administered Medications: 00:25 Drug: NS 0.9% IV 1000 ml IV at 1 bolus Per protocol; 1000 mL bolus Route: IV; Rate: 1 jj7 bolus; Site: left antecubital; 01:49 Follow up: IV Status: Completed infusion j 02:57 Follow up: IV Status: Completed infusion j 02:45 Drug: NS 0.9% IV 1000 ml IV at 100 ml/hr continuous Route: IV; Rate: 100 ml/hr; Site: [facility] left antecubital; Medication: 05/31 23:15 VIS not applicable for this client. j7 Outcome: 06/01 02:37 Decision to Hospitalize by Provider. cp 06:35 Admitted to ICU accompanied by tech, via stretcher, room 5 PT IS OVERFLOW FROM , jjVelia 06:35 Condition: improved 07:05 Patient left the ED. j7 Signatures: Dispatcher [employer] EDMS Stef Allred PA PA cp Espinosa, Orlando oe Slawson, Ashby, RN RN as6 Tom Lara RN RN jj7 Tyesha Gary f Corrections: (The following items were deleted from the chart) 07:18 06:35 Admitted to ICU accompanied by tech, via stretcher, room 1. PT IS OVERFLOW FROM jj7 MS, jj7
--- NOTE | 2023-06-01 03:58 | P.HP ---
Certification for Inpatient Patient admitted to: Inpatient With expected LOS: <2 Midnights Patient will require the following post-hospital care: None Practitioner: I am a practitioner with admitting privileges, knowledge of patient current condition, hospital course, and medical plan of care. Services: Services provided to patient in accordance with Admission requirements found in Title 42 Section 412.3 of the Code of Federal Regulations Patient History Date of Service: 06/01/23 Reason for admission: Urinary retention History of Present Illness: 67-year-old -Prydeinig male with a past medical history of hypertension, hyperlipidemia, diabetes, CVA, presents to the emergency room with difficulty urinating.. He reports urinary retention unable to empty bladder for the past month. He reports dizziness, weakness. He denies history of kidney disease, hematuria, he denies chest pain, abdominal pain, fever chills, shortness of breath. ER evaluation hypotension blood pressure BP 76 / 60; Pulse 62; Resp 18 S; Temp 98.2(TE); Pulse Ox 98% on R/A EKG 0 Rate is 50 beats/min. Rhythm is regular. MS interval is normal. QRS interval is normal. QT interval is prolonged at 506 msec. T waves are Inverted in lead aVR. Laboratory evaluation mild leukocytosis 11.0, no left shift, mild hyponatremia 135, acute renal failure BUN 44 creatinine 3.05, estimated GFR 22, plan to admit for syncope, acute renal failure, Allergies sulfamethoxazole [From Bactrim] Allergy (Verified 02/11/15 03:59) Hives trimethoprim [From Bactrim] Allergy (Verified 02/11/15 03:59) Hives Home Medications: Amlodipine [Norvasc*] 10 mg PO DAILY 02/19/13 Clonidine HCl [Catapres*] 0.2 mg PO TID 02/19/13 Pravastatin Sodium [Pravachol] 20 mg PO BEDTIME 02/19/13 carvediloL [Coreg*] 25 mg PO BID 02/19/13 hydroCHLOROthiazide [Hydrochlorothiazide*] 25 mg PO DAILY 02/19/13 lisinopriL [Prinivil*] 20 mg PO BID 02/19/13 Amitriptyline [Elavil*] 10 mg PO BEDTIME 02/11/15 Amitriptyline [Elavil*] 25 mg PO BEDTIME 02/11/15 Ciprofloxacin HCl [Cipro 500 MG Tablet] 500 mg PO DAILY 02/11/15 Hydrocodone Bit/Acetaminophen [Hydrocodon-Acetaminophn 10-325] 1 each PO Q4HP PRN 02/11/15 Lipase/Protease/Amylase [Alexis Mai 12,000 Unit Capsule] 1 each PO AC 02/11/15 Pregabalin [Lyrica*] 75 mg PO TID 02/11/15 - Past Medical/Surgical History Diabetic: No -: CVA -: HTN -: UTI -: Pancreatitis -: multiple boils removed -: cyst removed from spine -: Hernia repair - Family History Mother -: Diabetes Father -: Heart disease, Diabetes Sister -: Diabetes - Social History Alcohol use: Yes CD- Drugs: No Caffeine use: Yes Review of Systems 10-point ROS is otherwise unremarkable Physical Examination - Physical Exam General: Alert, In no apparent distress, Oriented x3, Other (Generalized weakness) HEENT: Atraumatic, Normocephalic Neck: Supple, 2+ carotid pulse no bruit Respiratory: Clear to auscultation bilaterally, Normal air movement Cardiovascular: No edema, Normal pulses, Regular rate/rhythm Capillary refill: <2 Seconds Gastrointestinal: Normal bowel sounds, Soft and benign Musculoskeletal: No clubbing, No swelling Integumentary: No rashes, No breakdown Neurological: Other (History of a CVA), Abnormal speech Urinary: Bladder distention, Correa catheter (Correa inserted), Other - Studies Laboratory Data (last 24 hrs) 06/01/23 06/01/23 06/01/23 00:20 00:20 00:20 WBC 11.00 H Hgb 14.5 Hct 41.2 Plt Count 251 PT 12.8 H INR 1.16 Sodium 135 L Potassium 4.4 BUN 44 H Creatinine 3.05 H Glucose 143 H Magnesium 2.2 Total Bilirubin 0.3 AST 14 L ALT 26 Alkaline Phosphatase 121 H Assessment and Plan - Plan Assessment plan acute renal failure likely secondary to bladder outlet obstruction Syncope Leukocytosis Essential hypertension Hyperlipidemia History of CVA DVT prophylaxis Assessment plan acute renal failure Patient denies history of chronic kidney disease, no current range rider Nephrology consult, gentle IV fluids, trend kidney function avoid nephrotoxic medication Correa inserted clear yellow urine, Urology consult consider CT shows possible bladder outlet obstruction because mild hyponatremia 135, acute renal failure BUN 44 creatinine 3.05, estimated GFR 22, Syncope Patient was hypotensive on arrival to the ER, could have been orthostatic hypotension Orthostatic vital signs in the a.m. BP 76 / 60; Pulse 62; Resp 18 S; Temp 98.2(TE); Pulse Ox 98% on R/A EKG 0 Rate is 50 beats/min. Rhythm is regular. MS interval is normal. QRS interval is normal. QT interval is prolonged at 506 msec. T waves are Inverted in lead aVR. Leukocytosis Laboratory evaluation mild leukocytosis 11.0, no left shift, Essential hypertension Hyperlipidemia History of CVA Resume appropriate home medications DVT prophylaxis Full code Diet cardiac Discharge Plan: Home Plan to discharge in: 48 Hours - Advance Directives Does patient have a Living Will: No Does patient have a Durable POA for Healthcare: No - Code Status/Comfort Care Code Status: Full Code Physician Review: Patient Assessed, Agree with Above Assessment and Plan Critical Care: No Time Spent Managing Pts Care (In Minutes): 50
[2023-06-01] MEDS ORDERED: NA CHLORIDE 0.9% 1,000 ML IV SCH (05:00)
[2023-06-01 05:14] LABS: Absolute Lymphocytes (CBC) 3.2 K/uL (0.7-4.9); Hematocrit 37.9 % (39.6-49.0); Lymphocytes % 28.2 % (15.3-44.8); MCV 91.5 fL (80-100); MPV 7.3 fL (7.6-11.3); Platelets 233 thou/uL (152-406); RBC Red Blood Cell Count 4.15 M/uL (4.33-5.43)
[2023-06-01 05:54] VITALS: BMI 31.1
[2023-06-01] MEDS: CEFTRIAXONE 2,000 MG in NA CHLORIDE 0.9% 100 ML IV SCH (06:57)
[2023-06-01] MEDS: INSULIN REGULAR (HUMAN) 100 UNIT/ML SQ SCH ×4 (07:30→21:00)
[2023-06-01 07:51] VITALS: O2SAT 99
--- NOTE | 2023-06-01 08:35 | P.CNS ---
Date of Consult: 06/01/23 Reason for Consult: BROCK/ CKD Requesting Physician: nura hitchcock Primary Care Provider: Dr. Church Chief Complaint: Urinary retention History of Present Illness: 67-year-old -Citizen Of [place] male with a past medical history of hypertension, hyperlipidemia, diabetes, CVA, presents to the emergency room with difficulty urinating.. He reports urinary retention unable to empty bladder for the past month. He reports dizziness, weakness. He denies history of kidney disease, hematuria, he denies chest pain, abdominal pain, fever chills, shortness of breath. ER evaluation hypotension blood pressure BP 76 / 60; Pulse 62; Resp 18 S; Temp 98.2(TE); Pulse Ox 98% on R/A EKG 0 Rate is 50 beats/min. Rhythm is regular. MA interval is normal. QRS interval is normal. QT interval is prolonged at 506 msec. T waves are Inverted in lead aVR. Laboratory evaluation mild leukocytosis 11.0, no left shift, mild hyponatremia 135, acute renal failure BUN 44 creatinine 3.05, estimated GFR 22, plan to admit for syncope, acute renal failure. [id number] 23:20 This 67 yrs old Black Male presents to ER via EMS with complaints of Dizziness. cp 23:20 The patient has experienced syncope, lost consciousness. Onset: The symptoms/episode cp began/occurred just prior to arrival. Duration: This was a single episode, that lasted an unknown period of time. He reports intermittent ibuprofen but he was unclear with the amount. He report moderate difficulty with emptying his bladder over the past month. He states that he had his third stroke a few weeks ago. Allergies sulfamethoxazole [From Bactrim] Allergy (Verified 02/11/15 03:59) Hives trimethoprim [From Bactrim] Allergy (Verified 02/11/15 03:59) Hives Home medications list reviewed: Yes Home Medications: Clonidine HCl [Catapres*] 0.2 mg PO TID 02/19/13 carvediloL [Coreg*] 25 mg PO BID 02/19/13 lisinopriL [Prinivil*] 20 mg PO BID 02/19/13 Atorvastatin Calcium [Lipitor] 80 mg PO BEDTIME 06/01/23 Fluoxetine HCl [Prozac] 20 mg PO DAILY 06/01/23 Hydralazine HCl 100 mg PO TID 06/01/23 Lipase/Protease/Amylase [Joshon Dr 12,000 Unit Capsule] 1 tab PO TID 06/01/23 Metformin HCl 1 tab PO BID 06/01/23 Nifedipine [Procardia Xl] 60 mg PO DAILY 06/01/23 Terazosin HCl [Hytrin] 5 mg PO BEDTIME 06/01/23 buPROPion HCL [Bupropion HCl Sr] 150 mg PO Q12HR 06/01/23 glipiZIDE [Glipizide] 10 mg PO DAILY 06/01/23 - Past Medical/Surgical History Diabetic: No -: CVA -: HTN -: UTI -: Pancreatitis -: BPH with LUTS -: HCV/ Liver Cirrhosis -: multiple boils removed -: cyst removed from spine -: Hernia repair - Family History Mother Medical History: Diabetes Father Medical History: Heart disease, Diabetes Sister Medical History: Diabetes - Social History Smoking Status: Current every day smoker Alcohol use: Yes CD- Drugs: No Caffeine use: Yes Review of Systems 10-point ROS is otherwise unremarkable General: Weakness Genitourinary: Retention Physical Examination Temp Pulse Resp BP Pulse Ox 98.2 F 57 12 146/86 H 100 05/31/23 23:06 06/01/23 06:40 06/01/23 06:40 06/01/23 06:40 06/01/23 06:40 General: In no apparent distress, Oriented x3, Cooperative HEENT: Atraumatic Neck: Supple Respiratory: Clear to auscultation bilaterally Cardiovascular: No edema, Regular rate/rhythm Gastrointestinal: Soft and benign, Non-distended Musculoskeletal: No clubbing, No contractures Integumentary: No rashes, No cyanosis Neurological: Normal speech Urinary: Bach catheter Laboratory Data (last 24 hrs) 06/01/23 06/01/23 06/01/23 00:20 00:20 00:20 WBC 11.00 H Hgb 14.5 Hct 41.2 Plt Count 251 PT 12.8 H INR 1.16 Sodium 135 L Potassium 4.4 BUN 44 H Creatinine 3.05 H Glucose 143 H Magnesium 2.2 Total Bilirubin 0.3 AST 14 L ALT 26 Alkaline Phosphatase 121 H Imagings Data: EXAM DESCRIPTION: CT Chest, Abdomen and Pelvis Without Intravenous Contrast CLINICAL HISTORY: HYPOTENSION TECHNIQUE: Axial computed tomography images of the chest, abdomen and pelvis without intravenous contrast. Sagittal and coronal reformatted images were created and reviewed. This CT exam was performed using one or more of the following dose reduction techniques: automated exposure control, adjustment of the mA and/or kV according to patient size, and/or use of iterative reconstruction technique. COMPARISON: Abdomen pelvis CT dated 05/06/2020 FINDINGS: CHEST: Lungs: Bibasilar subsegmental atelectasis/pleural parenchymal scar. Pleural space: Unremarkable. No significant effusion. No pneumothorax. Heart: The heart is mildly enlarged. Coronary artery calcification. No significant pericardial effusion. ABDOMEN: Liver: The liver is enlarged with surface contour nodularity suggestive of cirrhosis. Gallbladder and bile ducts: Unremarkable. No calcified stones. No ductal dilation. Pancreas: Unremarkable. No ductal dilation. Spleen: Unremarkable. No splenomegaly. Adrenals: Unremarkable. No mass. Kidneys and ureters: Unremarkable. No obstructing stones. No hydronephrosis. Stomach and bowel: Moderate stool in the proximal to mid large bowel. No bowel obstruction. No appreciable mucosal thickening. Colonic diverticula without adjacent inflammatory change. PELVIS: Appendix: Normal caliber appendix. No findings to suggest acute appendicitis. Bladder: Mild circumferential urinary bladder wall thickening. No stones. Reproductive: The prostate is enlarged. CHEST, ABDOMEN and PELVIS: Intraperitoneal space: Trace free fluid in the rectovesical space. No free air. Bones/joints: Multilevel spondylosis. No acute fracture. No dislocation. Soft tissues: Small fat-containing right paracentral and small to moderate fat- containing left paracentral periumbilical hernias. Small fat-containing left inguinal hernia. Prior right inguinal hernia repair. Vasculature: Moderate atherosclerotic disease. Lymph nodes: Unremarkable. No enlarged lymph nodes. IMPRESSION: 1. No focal pulmonary infiltrate. 2. Moderate stool. No bowel obstruction. 3. Mild circumferential urinary bladder wall thickening. This may be related to bladder outlet obstruction. Please correlate clinically for cystitis. 4. Other findings as above. Conclusions/Impression: Stage I BROCK in the setting of hypotension & urinary retention CKD III with Proteinuria -No NSAIDs -Continue bach -Continue IVF with NS Hyponatremia in the setting of HCTZ -Hold HCTZ -Continue IVF with NS HTN with CKD complicated by hypotension on admission -Hold antihypertensives at this time DM II with CKD -No sugar diet -RISS Anemia in chronic illness -Monitor H&H BPH with LUTS Bladder Thickening/ Urinary Retention -Continue bach -Start Flomax Hx HCV Liver Cirrhosis -He denies treatment for HCV -Check viral load Cigarette Smoker -Recommend cessation -Nicotine TD prn Hospitalist and ER notes reviewed Thank you kindly for the consultation
[2023-06-01 10:04] LABS: Magnesium 2.1 mg/dL (1.6-2.4); Potassium 4.1 mEq/L (3.5-5.1); Troponin High Sensitivity 18.8 pg/mL (<58.9)
--- NOTE | 2023-06-01 12:24 | EKG ---
Test Date: 2023-06-01 Test Time: 00:53:20 Data Coder Operator: FELIZ MEASUREMENT RESULTS: Intervals: Rate: 50 DC: 162 QRSD: 78 QT: 506 QTc: 461 [place]: P: 59 DC: 162 QRS: 64 T: 73 INTERPRETIVE STATEMENTS: Sinus bradycardia Possible Left atrial enlargement Borderline ECG Compared to ECG 05/17/2023 12:35:27 Sinus rhythm no longer present T-wave abnormality no longer present Possible ischemia no longer present Prolonged QT interval no longer present Electronically Signed On 06-01-23 12:23:07 CDT by Fritz Higgins
--- NOTE | 2023-06-01 15:05 | RAD REPORT ---
EXAM DESCRIPTION: CT Head Without Intravenous Contrast CLINICAL HISTORY: The patient is 67 years old and is Male; SYNCOPE TECHNIQUE: Axial computed tomography images of the head/brain without intravenous contrast. Sagitt al and coronal reformatted images were created and reviewed. This CT exam was performed using one o r more of the following dose reduction techniques: automated exposure control, adjustment of the mA and/or kV according to patient size, and/or use of iterative reconstruction technique. COMPARISON: CT of the head May 17, 2023 FINDINGS: BRAIN: There is diffuse cerebral atrophy present, consistent with this patient's age. There is patchy hypoattenuation of the deep white matter which is non-specific, but most likely owing to chronic small vessel ischemic change in a patient of this age group. Evidence of prior bilatera l basal ganglia infarct is noted. No intracranial hemorrhage, mass effect, midline shift is seen. The re are no extra-axial fluid collections. There is no cerebral edema. VENTRICLES: Unremarkable. No ventriculomegaly. BONES/JOINTS: No acute fracture. SOFT TISSUES: Unremarkable. VASCULATURE: Atherosclerosis of intracranial vasculature is present. SINUSES: Unremarkable as visualized. No acute sinusitis. MASTOID AIR CELLS: Unremarkable as visualized. No mastoid effusion. ORBITS: Unremarkable as visualized. IMPRESSION: No acute intracranial findings or detrimental change from prior exam. Electronically signed by: Rafia Macdonald MD 06/01/2023 1:27 AM CDT Due to temporary technical issues with the PACS/Fluency reporting system, reports are being signed by the in house radiologists without review as a courtesy to insure prompt reporting. The interpreting radiologist is fully responsible for the content of the report.
--- NOTE | 2023-06-01 15:52 | P.PN ---
Date of Service: 06/01/23 Patient has no new complaint. Correa catheter in place. Serum creatinine is trending down. Patient denies any prior history of urinary retention. CT shows enlarged prostate. Suspect LUT secondary to BPH. Postobstructive uropathy. Maintain Correa catheter Obtain UA with reflex microscopy and culture. Follow cultures Continue IV Rocephin. Continue IV fluid and monitor renal function for improvement
--- NOTE | 2023-06-01 17:54 | RAD REPORT ---
EXAM DESCRIPTION: CT Chest, Abdomen and Pelvis Without Intravenous Contrast CLINICAL HISTORY: HYPOTENSION TECHNIQUE: Axial computed tomography images of the chest, abdomen and pelvis without intravenous con trast. Sagittal and coronal reformatted images were created and reviewed. This CT exam was perfor med using one or more of the following dose reduction techniques: automated exposure control, adjus tment of the mA and/or kV according to patient size, and/or use of iterative reconstruction technique . COMPARISON: Abdomen pelvis CT dated 05/06/2020 FINDINGS: CHEST: Lungs: Bibasilar subsegmental atelectasis/pleural parenchymal scar. Pleural space: Unremarkable. No significant effusion. No pneumothorax. Heart: The heart is mildly enlarged. Coronary artery calcification. No significant pericardial effusion. ABDOMEN: Liver: The liver is enlarged with surface contour nodularity suggestive of cirrhosis. Gallbladder and bile ducts: Unremarkable. No calcified stones. No ductal dilation. Pancreas: Unremarkable. No ductal dilation. Spleen: Unremarkable. No splenomegaly. Adrenals: Unremarkable. No mass. Kidneys and ureters: Unremarkable. No obstructing stones. No hydronephrosis. Stomach and bowel: Moderate stool in the proximal to mid large bowel. No bowel obstruction. No appreciable mucosal thickening. Colonic diverticula without adjacent inflammatory change. PELVIS: Appendix: Normal caliber appendix. No findings to suggest acute appendicitis. Bladder: Mild circumferential urinary bladder wall thickening. No stones. Reproductive: The prostate is enlarged. CHEST, ABDOMEN and PELVIS: Intraperitoneal space: Trace free fluid in the rectovesical space. No free air. Bones/joints: Multilevel spondylosis. No acute fracture. No dislocation. Soft tissues: Small fat-containing right paracentral and small to moderate fat-containing left para central periumbilical hernias. Small fat-containing left inguinal hernia. Prior right inguinal he rnia repair. Vasculature: Moderate atherosclerotic disease. Lymph nodes: Unremarkable. No enlarged lymph nodes. IMPRESSION: 1. No focal pulmonary infiltrate. 2. Moderate stool. No bowel obstruction. 3. Mild circumferential urinary bladder wall thickening. This may be related to bladder outlet ob struction. Please correlate clinically for cystitis. 4. Other findings as above. Electronically signed by: Kenton Cevallos MD 06/01/2023 3:57 AM CDT Due to temporary technical issues with the PACS/Fluency reporting system, reports are being signed by the in house radiologists without review as a courtesy to insure prompt reporting. The interpreting radiologist is fully responsible for the content of the report.
[2023-06-01] MEDS: cloNIDine HCL 0.1 MG TAB PO SCH (20:56)
[2023-06-01] MEDS: lisinopriL 20 MG TAB PO SCH (20:57)
[2023-06-01] MEDS: HYDRALAZINE HCL 25 MG TABLET PO SCH (20:57)
[2023-06-01] MEDS: carvediloL 25 MG TAB PO SCH (20:58)
[2023-06-01] MEDS: BUPROPRION HCL S.R. 150MG TAB PO SCH (20:59)
[2023-06-01] MEDS ORDERED: ATORVASTATIN 80 MG TAB PO SCH (21:00)
[2023-06-01] MEDS ORDERED: HOME MED 1 EA UNK (Hydralazine Hcl [Hydralazine Hcl] 100 MG Tablet) PO SCH (21:00)
[2023-06-01] MEDS: LIPASE/PROTEASE/AMYLASE CAP PO SCH (21:00)
[2023-06-01] MEDS ORDERED: HOME MED 1 EA UNK (Clonidine Hcl [Catapres*] 0.2 MG Tablet) PO SCH (21:00)
[2023-06-02] MEDS: CEFTRIAXONE 2,000 MG in NA CHLORIDE 0.9% 100 ML IV SCH (06:23)
[2023-06-02 07:15] LABS: Specific Gravity 1.013 (1.005-1.030); Urine Bacteria None Seen /HPF (<20); Urine Bilirubin NEGATIVE (Negative); Urine Blood Trace (Negative); Urine Clarity Extremely Turbid (Clear); Urine Color Light-Yellow (Yellow); Urine Glucose 4+ (Over) (Negative); Urine Protein TRACE (Negative); Urine Urobilinogen Normal (Normal)
[2023-06-02] MEDS: INSULIN REGULAR (HUMAN) 100 UNIT/ML SQ SCH (07:30)
[2023-06-02 08:07] LABS: UR MICROALBUMIN 9.3 mg/dL (< 1.9); UR PROTEIN 20.6 mg/dL (<11.9); Urine Protein/Creatinine Ratio 0.27 ratio (<0.15)
[2023-06-02] MEDS: BUPROPRION HCL S.R. 150MG TAB PO SCH (08:33)
[2023-06-02] MEDS: cloNIDine HCL 0.1 MG TAB PO SCH (08:33)
[2023-06-02] MEDS: carvediloL 25 MG TAB PO SCH (08:34)
[2023-06-02] MEDS: lisinopriL 20 MG TAB PO SCH (08:34)
[2023-06-02] MEDS: HYDRALAZINE HCL 25 MG TABLET PO SCH (08:35)
[2023-06-02] MEDS: LIPASE/PROTEASE/AMYLASE CAP PO SCH (08:35)
[2023-06-02 08:37] VITALS: BP 127/79
[2023-06-02] MEDS ORDERED: NIFEDIPINE XL 60 MG TABLET PO SCH (09:00)
[2023-06-02] MEDS ORDERED: TAMSULOSIN 0.4 MG SR CAP PO SCH (09:00)
[2023-06-02] MEDS ORDERED: FLUOXETINE 20 MG CAP PO SCH (09:00)
[2023-06-02 09:08] LABS: Absolute Lymphocytes (CBC) 2.8 K/uL (0.7-4.9); Hematocrit 40.4 % (39.6-49.0); Lymphocytes % 27.6 % (15.3-44.8); MCV 92.1 fL (80-100); MPV 7.5 fL (7.6-11.3); Platelets 241 thou/uL (152-406); RBC Red Blood Cell Count 4.38 M/uL (4.33-5.43)
[2023-06-02 09:22] LABS: Magnesium 1.8 mg/dL (1.6-2.4); Phosphorus 3.4 mg/dL (2.5-4.9); Potassium 4.3 mEq/L (3.5-5.1)
[2023-06-02] MEDS ORDERED: MAGNESIUM SULFATE 1 gm IVPB 1 GM/100 ML BAG IV ONE (09:46)
[2023-06-02 11:09] VITALS: TEMP 97.8
--- NOTE | 2023-06-02 11:13 | P.DS ---
Admission Date: 06/01/23 Discharge Date: 06/02/23 Primary Care Provider: Dr. Church Disposition: ROUTINE DISCHARGE Discharge Condition: FAIR Reason for Admission: Urinary retention - Problems (1) Acute urinary retention Current Visit: Yes Status: Acute (2) Acute kidney injury Current Visit: Yes Status: Acute (3) Urinary tract infection Current Visit: Yes Status: Acute (4) Hypovolemic shock Current Visit: Yes Status: Acute Brief History of Present Illness: 67-year-old -[place] male with a past medical history of hypertension, hyperlipidemia, diabetes, CVA, presented to the emergency room with difficulty urinating. He reported urinary retention and unable to empty bladder for the past 1 month. He reported dizziness, weakness. He denied history of kidney disease or hematuria. ER evaluation hypotension blood pressure BP 76 / 60; Pulse 62; Resp 18 S; Temp 98.2(TE); Pulse Ox 98% on R/A EKG 0 Rate is 50 beats/min. Rhythm is regular. VA interval is normal. QRS interval is normal. QT interval is prolonged at 506 msec. T waves are Inverted in lead aVR. Laboratory evaluation mild leukocytosis 11.0, no left shift, mild hyponatremia 135, acute renal failure BUN 44 creatinine 3.05, estimated GFR 22. Patient admitted for further management of BROCK. Hospital Course: Patient was admitted to the ICU, aggressively hydrated with IV fluid. Correa catheter was inserted in the ED and maintained. Patient blood pressure improved to normal, renal function significantly improved and almost recovered. Patient was alert and asymptomatic. Vitals stabilized. He tolerated diet. Blood cultures yielded no growth. UA suggested sterile pyuria, CT abdomen and pelvis demonstrated enlarged prostate and mild circumferential bladder wall thickening indicating of bladder outlet obstruction or cystitis. Patient was treated with IV Rocephin and transition to oral cefpodoxime and discharged. He was placed on Flomax for bladder outlet obstruction secondary to BPH. Correa catheter maintained on discharge. Case discussed with Dr. Zhang to follow-up with patient in the office for further evaluation and management. Vital Signs/Physical Exam: Temp Pulse Resp BP Pulse Ox 97.8 F 87 16 127/79 98 06/02/23 08:00 06/02/23 08:36 06/02/23 08:00 06/02/23 08:36 06/02/23 08:00 General: Alert, In no apparent distress, Oriented x3 HEENT: Mucous membr. moist/pink Neck: Supple, JVD not distended Respiratory: Clear to auscultation bilaterally, Normal air movement Cardiovascular: No edema, Regular rate/rhythm, Normal S1 S2 Gastrointestinal: Soft and benign, Non-distended, No tenderness Musculoskeletal: No swelling Integumentary: No rashes, No cyanosis Neurological: Normal strength at 5/5 x4 extr Laboratory Data at Discharge: WBC 10.30 thou/uL (4.3-10.9) 06/02/23 08:49 Hgb 13.6 g/dL (13.6-17.9) 06/02/23 08:49 Hct 40.4 % (39.6-49.0) 06/02/23 08:49 Plt Count 241 thou/uL (152-406) 06/02/23 08:49 PT 12.8 SECONDS (9.5-12.5) H 06/01/23 00:20 INR 1.16 06/01/23 00:20 Sodium 139 mEq/L (136-145) 06/02/23 08:49 Potassium 4.3 mEq/L (3.5-5.1) 06/02/23 08:49 BUN 29 mg/dL (7-18) H 06/02/23 08:49 Creatinine 1.67 mg/dL (0.70-1.30) H 06/02/23 08:49 Glucose 212 mg/dL (74-106) H 06/02/23 08:49 Uric Acid 7.0 mg/dL (3.5-7.2) 06/02/23 08:49 Phosphorus 3.4 mg/dL (2.5-4.9) 06/02/23 08:49 Magnesium 1.8 mg/dL (1.6-2.4) 06/02/23 08:49 Total Bilirubin 0.3 mg/dL (0.2-1.0) 06/01/23 00:20 AST 14 U/L (15-37) L 06/01/23 00:20 ALT 26 U/L (16-61) 06/01/23 00:20 Alkaline Phosphatase 121 U/L (45-117) H 06/01/23 00:20 Home Medications: Clonidine HCl [Catapres*] 0.2 mg PO TID 02/19/13 carvediloL [Coreg*] 25 mg PO BID 02/19/13 lisinopriL [Prinivil*] 20 mg PO BID 02/19/13 Atorvastatin Calcium [Lipitor] 80 mg PO BEDTIME 06/01/23 Fluoxetine HCl [Prozac] 20 mg PO DAILY 06/01/23 Hydralazine HCl 100 mg PO TID 06/01/23 Lipase/Protease/Amylase [Alexis Mai 12,000 Unit Capsule] 1 tab PO TID 06/01/23 Metformin HCl 1 tab PO BID 06/01/23 Nifedipine [Procardia Xl] 60 mg PO DAILY 06/01/23 buPROPion HCL [Bupropion HCl Sr] 150 mg PO Q12HR 06/01/23 glipiZIDE [Glipizide] 10 mg PO DAILY 06/01/23 Cefpodoxime Proxetil 200 mg PO BID #20 tab 06/02/23 Tamsulosin [Flomax*] 0.4 mg PO DAILY #30 cap 06/02/23 New Medications: Cefpodoxime Proxetil 200 mg PO BID #20 tab Tamsulosin [Flomax*] 0.4 mg PO DAILY #30 cap Followup: Marcelo Lundy DO [ACTIVE - CAN ADMIT] - 1-2 Weeks (call to schedule an appointment) NONE,NONE [Primary Care Provider] - 1-2 Weeks (call to schedule an appointment) Alberto Zhang [ACTIVE - CAN ADMIT] - (call to schedule an appointment in 2-3 weeks) Time spent managing pt's care (in minutes): 34
[2023-06-02 15:49] LABS: Hepatitis B surface AG Interp. Nonreactive (Nonreactive)
[2023-06-02 15:52] LABS: Hepatitis B Surface Ab - Quant < 3.10 mIU/mL (<8.0)
--- NOTE | 2023-06-02 22:26 | P.PN ---
Date of Service: 06/02/23 Vital Signs Temp Pulse Resp BP Pulse Ox 97.8 F 87 16 127/79 98 06/02/23 08:00 06/02/23 08:36 06/02/23 08:00 06/02/23 08:36 06/02/23 08:00 Microbiology Results 06/01/23 00:30 Blood - Blood Aerobic Blood Culture - Preliminary No growth in 24 hours. 06/01/23 00:30 Blood - Blood Anaerobic Blood Culture - Preliminary No growth in 24 hours. 06/01/23 00:20 Blood - Blood Aerobic Blood Culture - Preliminary No growth in 24 hours. 06/01/23 00:20 Blood - Blood Anaerobic Blood Culture - Preliminary No growth in 24 hours. Assessment/ Plan: Nephrology No dyspnea No chest pain Feeling better No acute events overnight Vitals, medications, blood work and imaging reviewed in the chart. General: In no apparent distress, Oriented x3, Cooperative HEENT: Atraumatic Neck: Supple Respiratory: Clear to auscultation bilaterally Cardiovascular: No edema, Regular rate/rhythm Gastrointestinal: Soft and benign, Non-distended Musculoskeletal: No clubbing, No contractures Integumentary: No rashes, No cyanosis Neurological: Normal speech Urinary: Bach catheter Laboratory Data (last 24 hrs) 06/01/23 06/01/23 06/01/23 00:20 00:20 00:20 WBC 11.00 H Hgb 14.5 Hct 41.2 Plt Count 251 PT 12.8 H INR 1.16 Sodium 135 L Potassium 4.4 BUN 44 H Creatinine 3.05 H Glucose 143 H Magnesium 2.2 Total Bilirubin 0.3 AST 14 L ALT 26 Alkaline Phosphatase 121 H Imagings Data: EXAM DESCRIPTION: CT Chest, Abdomen and Pelvis Without Intravenous Contrast CLINICAL HISTORY: HYPOTENSION TECHNIQUE: Axial computed tomography images of the chest, abdomen and pelvis without intravenous contrast. Sagittal and coronal reformatted images were created and reviewed. This CT exam was performed using one or more of the following dose reduction techniques: automated exposure control, adjustment of the mA and/or kV according to patient size, and/or use of iterative reconstruction technique. COMPARISON: Abdomen pelvis CT dated 05/06/2020 FINDINGS: CHEST: Lungs: Bibasilar subsegmental atelectasis/pleural parenchymal scar. Pleural space: Unremarkable. No significant effusion. No pneumothorax. Heart: The heart is mildly enlarged. Coronary artery calcification. No significant pericardial effusion. ABDOMEN: Liver: The liver is enlarged with surface contour nodularity suggestive of cirrhosis. Gallbladder and bile ducts: Unremarkable. No calcified stones. No ductal dilation. Pancreas: Unremarkable. No ductal dilation. Spleen: Unremarkable. No splenomegaly. Adrenals: Unremarkable. No mass. Kidneys and ureters: Unremarkable. No obstructing stones. No hydronephrosis. Stomach and bowel: Moderate stool in the proximal to mid large bowel. No bowel obstruction. No appreciable mucosal thickening. Colonic diverticula without adjacent inflammatory change. PELVIS: Appendix: Normal caliber appendix. No findings to suggest acute appendicitis. Bladder: Mild circumferential urinary bladder wall thickening. No stones. Reproductive: The prostate is enlarged. CHEST, ABDOMEN and PELVIS: Intraperitoneal space: Trace free fluid in the rectovesical space. No free air. Bones/joints: Multilevel spondylosis. No acute fracture. No dislocation. Soft tissues: Small fat-containing right paracentral and small to moderate fat- containing left paracentral periumbilical hernias. Small fat-containing left inguinal hernia. Prior right inguinal hernia repair. Vasculature: Moderate atherosclerotic disease. Lymph nodes: Unremarkable. No enlarged lymph nodes. IMPRESSION: 1. No focal pulmonary infiltrate. 2. Moderate stool. No bowel obstruction. 3. Mild circumferential urinary bladder wall thickening. This may be related to bladder outlet obstruction. Please correlate clinically for cystitis. 4. Other findings as above. Conclusions/Impression: Stage I BROCK in the setting of hypotension & urinary retention CKD III with Proteinuria -No NSAIDs -Continue bach -Continue IVF with NS Hyponatremia in the setting of HCTZ -Hold HCTZ -Continue IVF with NS HTN with CKD complicated by hypotension on admission -Hold antihypertensives at this time DM II with CKD -No sugar diet -RISS Anemia in chronic illness -Monitor H&H BPH with LUTS Bladder Thickening/ Urinary Retention -Continue bach -Start Flomax Hx HCV Liver Cirrhosis -He denies treatment for HCV -Check viral load Cigarette Smoker -Recommend cessation -Nicotine TD prn Hospitalist and ER notes reviewed
[2023-06-04 14:48] LABS: Hepatitis C Virus RNA (PCR)log <1.18 log IU/mL
== END 2023-06-02 12:30 | disposition home or self-care (01) | DRG 682 ==
LOC: ER 23:05 → ERHOLD 06-01 04:05 → 3RD-ICU 06-01 05:47 → 4TH 06-01 11:27
PROVIDERS: ADMIT Internal Medicine; ATTEND Internal Medicine
PROC: 0T9B70Z Drainage of Bladder with Drainage Device, Via Natural or Artificial Opening (ICD-10-PCS; principal; 2023-06-01)
DX: N17.9 Acute kidney failure, unspecified (principal); R57.1 Hypovolemic shock; E87.1 Hypo-osmolality and hyponatremia; N30.00 Acute cystitis without hematuria; N13.8 Other obstructive and reflux uropathy; I12.9 Hypertensive chronic kidney disease with stage 1 through stage 4 chronic kidney disease, or unspecified chronic kidney disease; N18.30 Chronic kidney disease, stage 3 unspecified; E11.22 Type 2 diabetes mellitus with diabetic chronic kidney disease; D63.1 Anemia in chronic kidney disease; N32.0 Bladder-neck obstruction; K74.60 Unspecified cirrhosis of liver; E78.00 Pure hypercholesterolemia, unspecified; N40.1 Benign prostatic hyperplasia with lower urinary tract symptoms; R33.8 Other retention of urine; T50.2X5A Adverse effect of carbonic-anhydrase inhibitors, benzothiadiazides and other diuretics, initial encounter; Z88.1 Allergy status to other antibiotic agents; Z86.73 Personal history of transient ischemic attack (TIA), and cerebral infarction without residual deficits; Z79.84 Long term (current) use of oral hypoglycemic drugs; Z79.02 Long term (current) use of antithrombotics/antiplatelets; Z87.891 Personal history of nicotine dependence; Z79.899 Other long term (current) drug therapy
CPT/HCPCS: 36415; 51702; 70450; 71250; 74176; 80048; 80076; 81001; 82043; 82570; 82947; 83036; 83605; 83735; 83880; 84100; 84156; 84484; 84550; 85025; 85610; 86160; 86706; 87040; 87086; 87088; 87340; 87389; 87522; 93005; 96360; 99285; J0696; J3475; J7030

== ENCOUNTER → 2023-08-14 | Emergency (ER) | payer MEDICARE, OTHER ==
--- NOTE | 2023-08-14 15:43 | ER ---
Nurse's Notes [facility] Name: Jabier King Age: 67 yrs Sex: Male : 1955 Arrival Date: 08/14/2023 Time: 13:57 Bed 12 Private MD: Diagnosis: Encounter for attention to indwelling urinary catheter Presentation: 08/14 14:07 Chief complaint: Patient states: Pt states he had a bach catheter placed unknown when hb for urinary retention. Pt states he wants it removed. Pt states bach is causing him pain mainly at night time. Pt states he went to urologist but was not given any guidance on removal. Coronavirus screen: Vaccine status: Patient reports receiving the 2nd dose of the covid vaccine. Ebola Screen: Patient negative for fever greater than or equal to 101.5 degrees Fahrenheit, and additional compatible Ebola Virus Disease symptoms Patient denies exposure to infectious person. Patient denies travel to an Ebola-affected area in the 21 days before illness onset. No symptoms or risks identified at this time. Initial Sepsis Screen: Does the patient meet any 2 criteria? No. Patient's initial sepsis screen is negative. Does the patient have a suspected source of infection? No. Patient's initial sepsis screen is negative. Risk Assessment: Do you want to hurt yourself or someone else? Patient reports no desire to harm self or others. Onset of symptoms is unknown. 14:07 Method Of Arrival: Ambulatory hb 14:07 Acuity: TARA 3 hb Triage Assessment: 14:11 General: Appears in no apparent distress. Behavior is calm, cooperative. Pain: hb Complains of pain in groin, penis. Historical: - Allergies: 14:11 Bactrim; hb - PMHx: 14:11 CVA; Diabetes - NIDDM; High Cholesterol; Hypertension; hb - Immunization history:: Adult Immunizations unknown. - Social history:: Smoking status: Patient/guardian denies using tobacco, Stopped _ months ago 1. - Family history:: not pertinent. - Hospitalizations: : No recent hospitalization is reported. Screenin:44 [facility] ED Fall Risk Assessment (Adult) History of falling in the last 3 months, bp including since admission No falls in past 3 months (0 pts). Abuse screen: Denies threats or abuse. Denies injuries from another. Nutritional screening: No deficits noted. Tuberculosis screening: No symptoms or risk factors identified. Vital Signs: 14:07 BP 125 / 99; Pulse 72; Resp 18; Temp 97.1(O); Pulse Ox 100% on R/A; Weight 81.65 kg; hb Height 5 ft. 5 in. ; Pain 6/10; 14:07 Body Mass Index 29.95 (81.65 kg, 165.1 cm) hb 14:07 Pain Scale: Adult hb ED Course: 13:58 Patient arrived in ED. rg4 14:10 Triage completed. hb 14:11 Haile Ruiz MD is Attending Physician. rn 14:12 Arm band placed on left wrist. Patient placed in an exam room, on a stretcher. hb 14:25 Narciso Higuera, RN is Primary Nurse. bp 15:42 Alberto Zhang MD is Referral Physician. rn 15:44 Patient has correct armband on for positive identification. bp 15:44 No provider procedures requiring assistance completed. Patient did not have IV access bp during this emergency room visit. Administered Medications: No medications were administered Outcome: 15:43 Discharge ordered by . rn 15:44 Discharged to home ambulatory, bp 15:44 Condition: stable 15:44 Discharge instructions given to patient, Instructed on discharge instructions, follow up and referral plans. Demonstrated understanding of instructions, follow-up care, 15:45 Patient left the ED. bp Signatures: Haile Ruiz MD MD rn Baxter, Heather, RN RN hb Garcia, Rubi rg4 Narciso Higuera, RN RN bp
--- NOTE | 2023-08-14 15:43 | EDPHYS ---
Physician Documentation [facility] Name: Jabier King Age: 67 yrs Sex: Male : 1955 Arrival Date: 08/14/2023 Time: 13:57 Bed 12 Private MD: ED Physician Haile Ruiz HPI: 08/14 15:41 This 67 yrs old Black Male presents to ER via Ambulatory with complaints of Problem rn With Urinary Catheter. 15:41 The patient presents with Irritation. Onset: The symptoms/episode began/occurred at an rn unknown time. Associated signs and symptoms: Pertinent negatives: abdominal pain, fever, hematuria. The patient has not experienced similar symptoms in the past. Patient states urinary catheter placed 1 month ago in ER. Having a lot of irritation to the tip of his penis. No other acute complaints. Patient states never completely obstructed just had some urinary retention. No bleeding. . Historical: - Allergies: 14:11 Bactrim; hb - PMHx: 14:11 CVA; Diabetes - NIDDM; High Cholesterol; Hypertension; hb - Immunization history:: Adult Immunizations unknown. - Social history:: Smoking status: Patient/guardian denies using tobacco, Stopped _ months ago 1. - Family history:: not pertinent. - Hospitalizations: : No recent hospitalization is reported. ROS: 15:41 Constitutional: Negative for fever, chills, and weight loss, Abdomen/GI: Negative for rn abdominal pain, nausea, vomiting, diarrhea, and constipation, : Positive for irritation at tip of penis Exam: 15:41 Constitutional: This is a well developed, well nourished patient who is awake, alert, rn and in no acute distress. Abdomen/GI: Soft, nontender Vital Signs: 14:07 BP 125 / 99; Pulse 72; Resp 18; Temp 97.1(O); Pulse Ox 100% on R/A; Weight 81.65 kg; hb Height 5 ft. 5 in. ; Pain 6/10; 14:07 Body Mass Index 29.95 (81.65 kg, 165.1 cm) hb 14:07 Pain Scale: Adult hb MDM: 14:11 Patient medically screened. rn 15:41 Differential diagnosis: Correa catheter problem. Data reviewed: vital signs, nurses rn notes, and as a result, I will discharge patient. Counseling: I had a detailed discussion with the patient and/or guardian regarding the historical points, exam findings, and any diagnostic results supporting the discharge/admit diagnosis, the need for outpatient follow up, to return to the emergency department if symptoms worsen or persist or if there are any questions or concerns that arise at home. Special discussion: I discussed with the patient/guardian in detail that at this point there is no indication for admission to the hospital. It is understood, however, that if the symptoms persist or worsen the patient needs to return immediately for re-evaluation. Based on the history and exam findings, there is no indication for further emergent testing or inpatient evaluation. I discussed with the patient/guardian the need to see the urologist for further evaluation of the symptoms. 15:41 ED course: Patient requested Correa catheter removed, never had true obstruction just rn some urinary retention. Patient understands that if we remove Ocrrea catheter he may require a new 1 soon after. Correa catheter removed without blood, patient feels much better and thankful. Will DC home with return precautions and urology follow-up.. Administered Medications: No medications were administered Disposition Summary: 08/14/23 15:43 Discharge Ordered Notes: Location: Home rn Problem: new rn Symptoms: have improved rn Condition: Stable rn Diagnosis - Encounter for attention to indwelling urinary catheter rn Followup: rn - With: Albreto Zhang MD - When: As needed - Reason: Recheck today's complaints, Re-evaluation by your physician Forms: - Medication Reconciliation Form rn - Thank You Letter rn - Antibiotic rn obgyn - Prescription Opioid Use rn - Patient Portal Instructions rn - Leadership Thank You Letter rn Signatures: Haile Ruiz MD MD rn Baxter, Heather, RN RN
[2023-08-14 16:19] VITALS: BP 125/99; TEMP 97.1; O2SAT 100
== END ==
LOC: ER 13:57
DX: Z46.6 Encounter for fitting and adjustment of urinary device (principal)
CPT/HCPCS: 99282

== ENCOUNTER 2023-11-10 15:56 | Emergency (ER) | payer OTHER ==
[2023-11-10 16:49] LABS: Absolute Eosinophils 0.1 K/uL (0-0.5); Absolute Lymphocytes (CBC) 2.5 K/uL (0.7-4.9); Absolute Monocytes 0.9 K/uL (0.1-1.3); Absolute Neutrophil 4.8 K/uL (1.8-8.0); Basophils % 0.5 % (0-1.3); Eosinophils % 1.5 % (0-4.4); Hematocrit 32.4 % (39.6-49.0); Hemoglobin 11.1 g/dL (13.6-17.9); Lymphocytes % 29.6 % (15.3-44.8); MCH 31.8 pg (27.0-35.0); MCHC 34.3 g/dL (32.0-36.0); MCV 92.7 fL (80-100); MPV 6.5 fL (7.6-11.3); Neutrophils % 57.4 % (41.7-73.7); Platelets 208 thou/uL (152-406); Red Cell Distribution Width 14.1 % (12.1-15.2)
[2023-11-10 16:53] LABS: PT Prothrombin Time 11.8 SECONDS (9.5-12.5); Protime INR 1.07
--- NOTE | 2023-11-10 16:59 | RAD REPORT ---
EXAM DESCRIPTION: CT - Head Brain Wo Cont - 11/10/2023 4:17 pm CLINICAL HISTORY: SYNCOPE COMPARISON: Head Brain Wo Cont dated 05/31/2023; Head angio dated 05/17/2023 TECHNIQUE: Noncontrast head CT images were obtained without IV contrast. Multiplanar reformats were generated and reviewed. All CT scans are performed using dose optimization technique as appropriate and may include automated exposure control or mA/KV adjustment according to patient size. FINDINGS: No intracranial hemorrhage, mass, or edema. Midline structures are unremarkable. Normal ventricular caliber for age. Hypodensities in the right basal ganglia region are stable, may represent sequelae of remote infarcts . Johnson-white matter differentiation is otherwise preserved, without evidence of acute infarct. No abn ormal extra-axial fluid collections. Stable patchy white matter hypodensities, nonspecific, but suggestive of chronic small vessel ischemi c changes. Mastoid air cells and visualized portions of the paranasal sinuses are clear. No acute bony findings. IMPRESSION: No evidence of an acute intracranial process. Chronic findings as above.
[2023-11-10 17:20] LABS: ALT/SGPT 37 U/L (16-61); AST/SGOT 23 U/L (15-37); Albumin 3.3 g/dL (3.4-5.0); Alkaline Phosphatase 88 U/L (45-117); Anion Gap 9.6 mEq/L (5.0-15.0); BUN Blood Urea Nitrogen 34 mg/dL (7-18); Bicarbonate 26 mEq/L (21-32); Bilirubin Total 0.2 mg/dL (0.2-1.0); Glomerular Filtration Rate 33 ml/min (=/>90); Glucose Level 69 mg/dL (74-106); Potassium 4.6 mEq/L (3.5-5.1); Sodium Level 140 mEq/L (136-145)
[2023-11-10 17:21] LABS: Albumin/Globulin Ratio 0.9 (1.1-1.8); Globulin 3.7 g/dL (2.3-3.5); Lipase 21 U/L (13-75); Magnesium 2.2 mg/dL (1.6-2.4); NT PRO-BNP 49 pg/mL (<125)
--- NOTE | 2023-11-10 17:29 | RAD REPORT ---
EXAM DESCRIPTION[facility] 4:21 pm CLINICAL HISTORY: COUGH COMPARISON: Chest Single View dated 08/19/2023; Chest Single View dated 07/31/2023; Chest Single View dated 05/17/2023; Chest Single View dated 06/03/2020 TECHNIQUE: Portable AP view of the chest. FINDINGS: The lungs are clear. No pneumothorax or effusion. The cardiomediastinal contours are unre markable. IMPRESSION: No acute cardiopulmonary process.
[2023-11-10 17:51] LABS: Bilirubin Direct < 0.1 mg/dL (0-0.2); Bilirubin Indirect, Calculated ND mg/dL (0.2-0.8)
[2023-11-10 18:27] LABS: Specific Gravity 1.021 (1.005-1.030); Sqamous Epithelial <5 /HPF (None Seen); Urine Bacteria 20-50 /HPF (<20); Urine Bilirubin NEGATIVE (Negative); Urine Blood Negative (Negative); Urine Clarity Turbid (Clear); Urine Color Light-Yellow (Yellow); Urine Culture Reflex Order REFLEXED; Urine Glucose 4+ (Over) (Negative); Urine Ketones NEGATIVE (Negative); Urine Microscopic Reflex YN ORDER UMIC; Urine Mucus Slight /HPF (None Seen); Urine Nitrite 2+ (Negative); Urine Protein NEGATIVE (Negative); Urine RBC <5 /HPF (None Seen); Urine Urobilinogen Normal (Normal); Urine WBC 20-50 /HPF (<5); Urine WBC Clump Occasional /HPF (None Seen); Urine pH 5.5 (5.0-7.0)
--- NOTE | 2023-11-10 18:29 | EDPHYS ---
Physician Documentation [facility] Name: Jabier King Age: 68 yrs Sex: Male : 1955 Arrival Date: 11/10/2023 Time: 15:56 Bed 16 Private MD: ED Physician Stef Bagley HPI: 11/09 18:13 This 68 yrs old Black Male presents to ER via Ambulatory with complaints of Passed Out brianna Prior To Arrival, Blood Pressure Problem. 18:13 The patient has experienced near-syncope. Onset: The symptoms/episode began/occurred brianna just prior to arrival. Duration: This was a single episode, that lasted 20 second(s). Context: the episode(s) was witnessed, by family, . Associated injury: The patient did not suffer any apparent associated injury. Current symptoms: Currently, the patient is not experiencing any symptoms, the patient feels back to baseline. The patient has not experienced similar symptoms in the past. Historical: - Allergies: 16:11 Bactrim; ko1 - PMHx: 16:11 CVA; Diabetes - NIDDM; High Cholesterol; Hypertension; ko1 - PSHx: 16:11 None; ko1 - Immunization history:: Adult Immunizations up to date. - Social history:: Smoking status: Patient/guardian denies using tobacco, but has a distant history of tobacco abuse. ROS: 18:18 Constitutional: Negative for fever, chills, and weight loss, Eyes: Negative for injury, brianna pain, redness, and discharge, ENT: Negative for injury, pain, and discharge, Neck: Negative for injury, pain, and swelling, Cardiovascular: Negative for chest pain, palpitations, and edema, Respiratory: Negative for shortness of breath, cough, wheezing, and pleuritic chest pain, Abdomen/GI: Negative for abdominal pain, nausea, vomiting, diarrhea, and constipation, Back: Negative for injury and pain, : Negative for injury, bleeding, discharge, and swelling, MS/Extremity: Negative for injury and deformity, Skin: Negative for injury, rash, and discoloration, Psych: Negative for depression, anxiety, suicide ideation, homicidal ideation, and hallucinations, Allergy/Immunology: Negative for hives, rash, and allergies, Endocrine: Negative for neck swelling, polydipsia, polyuria, polyphagia, and marked weight changes, Hematologic/Lymphatic: Negative for swollen nodes, abnormal bleeding, and unusual bruising, 18:18 Neuro: Positive for near syncope, weakness, Exam: 18:18 Constitutional: This is a well developed, well nourished patient who is awake, alert, brianna and in no acute distress. Head/Face: Normocephalic, atraumatic. Eyes: Pupils equal round and reactive to light, extra-ocular motions intact. Lids and lashes normal. Conjunctiva and sclera are non-icteric and not injected. Cornea within normal limits. Periorbital areas with no swelling, redness, or edema. ENT: Nares patent. No nasal discharge, no septal abnormalities noted. Tympanic membranes are normal and external auditory canals are clear. Oropharynx with no redness, swelling, or masses, exudates, or evidence of obstruction, uvula midline. Mucous membranes moist. Neck: Trachea midline, no thyromegaly or masses palpated, and no cervical lymphadenopathy. Supple, full range of motion without nuchal rigidity, or vertebral point tenderness. No Meningismus. Chest/axilla: Normal chest wall appearance and motion. Nontender with no deformity. No lesions are appreciated. Cardiovascular: Regular rate and rhythm with a normal S1 and S2. No gallops, murmurs, or rubs. Normal PMI, no JVD. No pulse deficits. Respiratory: Lungs have equal breath sounds bilaterally, clear to auscultation and percussion. No rales, rhonchi or wheezes noted. No increased work of breathing, no retractions or nasal flaring. Abdomen/GI: Soft, non-tender, with normal bowel sounds. No distension or tympany. No guarding or rebound. No evidence of tenderness throughout. Back: No spinal tenderness. No costovertebral tenderness. Full range of motion. Male : Normal genitalia with no discharge or lesions. Skin: Warm, dry with normal turgor. Normal color with no rashes, no lesions, and no evidence of cellulitis. MS/ Extremity: Pulses equal, no cyanosis. Neurovascular intact. Full, normal range of motion. Neuro: Awake and alert, GCS 15, oriented to person, place, time, and situation. Cranial nerves II-XII grossly intact. Motor strength 5/5 in all extremities. Sensory grossly intact. Cerebellar exam normal. Normal gait. Psych: Awake, alert, with orientation to person, place and time. Behavior, mood, and affect are within normal limits. 18:18 ECG was reviewed by the Attending Physician. 18:18 Musculoskeletal/extremity: DVT Exam: No signs of deep vein thrombosis. no pain, no swelling, no tenderness, negative Homans' sign noted on exam, no appreciated bluish discoloration, no erythema, no increased warmth, Vital Signs: 16:05 BP 95 / 59; Pulse 73; Resp 16; Temp 97.5; Pulse Ox 100% ; ko1 16:45 BP 94 / 65; Pulse 66; Resp 16; Pulse Ox 98% on R/A; me1 17:00 BP 93 / 63; Pulse 64; Resp 16; Pulse Ox 99% on R/A; me1 17:58 BP 115 / 75 Supine; Pulse 72; me1 17:59 BP 115 / 74 Sitting; Pulse 67; me1 18:00 BP 115 / 75 Standing; Pulse 64; me1 18:00 BP 115 / 75; Pulse 64; Resp 17; Pulse Ox 100% on R/A; me1 MDM: 16:02 Patient medically screened. brianna 18:19 Differential Diagnosis altered mental status, sepsis, flu. Differential Diagnosis: brianna aortic aneurysm, cardiac arrhythmia, cerebrovascular accident, idiopathic syncope, sepsis, vasovagal episode. Data reviewed: vital signs, nurses notes, lab test result(s), EKG, radiologic studies, plain films. Consideration of Admission/Observation Escalation of care including admission/observation considered. I considered the following discharge prescriptions or medication management in the emergency department Medications were administered in the Emergency Department. See MAR. Independent interpretation of the following test(s) in the Emergency Department EKG: See my EKG interpretation above. Test considered but Not performed: Ultrasound NO 2 D ECHO DONE. Historians other than the Patient: Family Member: WELL INFORMED. Care significantly affected by the following chronic conditions: Diabetes, Hypertension, Chronic Kidney Disease, HIGH CHLESTEROL. Counseling: I had a detailed discussion with the patient and/or guardian regarding the historical points, exam findings, and any diagnostic results supporting the discharge/admit diagnosis, lab results, radiology results, the need for outpatient follow up, for definitive care, a software development intern, a family practitioner. 11/09 16:02 Order name: Basic Metabolic Panel; Complete Time: 18:10 brianna 11/09 16:02 Order name: CBC with Diff; Complete Time: 17:27 brianna 11/09 16:02 Order name: LFT's; Complete Time: 18:10 11/09 16:02 Order name: Magnesium; Complete Time: 18:10 11/09 16:02 Order name: NT PRO-BNP; Complete Time: 18:10 11/09 16:02 Order name: PT-INR; Complete Time: 17:27 11/09 16:02 Order name: Troponin HS; Complete Time: 18:10 11/09 16:02 Order name: Lipase; Complete Time: 18:10 11/09 16:02 Order name: Urinalysis w/ reflexes 11/09 18:32 Order name: Urine Culture EDMS 11/09 16:02 Order name: XRAY Chest (1 view); Complete Time: 17:40 11/09 16:02 Order name: CT Head Brain wo Cont; Complete Time: 17:27 11/09 16:02 Order name: EKG; Complete Time: 16:03 11/09 16:02 Order name: Cardiac monitoring; Complete Time: 16:43 11/09 16:02 Order name: EKG - Nurse/Tech; Complete Time: 16:43 11/09 16:02 Order name: IV Saline Lock; Complete Time: 16:43 11/09 16:02 Order name: Labs collected and sent; Complete Time: 16:43 11/09 16:02 Order name: O2 Per Protocol; Complete Time: 16:43 11/09 16:02 Order name: O2 Sat Monitoring; Complete Time: 16:43 11/09 17:27 Order name: Orthostatics; Complete Time: 18:15 11/09 17:27 Order name: PO challenge: GATORADE; Complete Time: 17:37 11/09 18:13 Order name: PO challenge: JUICE; Complete Time: 18:18 [facility] EC:18 Rate is 66 beats/min. Rhythm is regular. QRS [place] is Normal. [place] interval is normal. QRS brianna interval is normal. QT interval is normal. No Q waves. T waves are Normal. No ST changes noted. Clinical impression: Normal ECG and No evidence of ischemia. Interpreted by me. Reviewed by me. Administered Medications: 16:45 Drug: NS 0.9% IV 1000 ml IV at 1 bolus Per protocol; 1000 mL bolus Route: IV; Rate: 1 me1 bolus; Site: left antecubital; 18:59 Follow up: Response: No adverse reaction; IV Status: Completed infusion; IV Intake: me1 1000ml 18:42 Not Given (per Verbal order from Dr Mccabe.): ns 0.9% 1000 ml IV at 1 bolus Per me1 protocol; 1000 mL bolus Disposition Summary: 11/10/23 18:28 Discharge Ordered Notes: Location: Home brianna Problem: new brianna Symptoms: have improved brianna Condition: Stable brianna Diagnosis - Syncope Near brianna - Hypotension due to drugs - MULTIPLE BLOOD PRESSURE MEDS brianna - Unspecified kidney failure - CHRONIC brianna Followup: brianna - With: Private Physician - When: 2 - 3 days - Reason: Recheck today's complaints, Continuance of care, Re-evaluation by your physician Followup: brianna - With: Fritz Higgins MD - When: 2 - 3 days - Reason: Recheck today's complaints, Re-evaluation by your physician Followup: brianna - With: Ángel Maravilla MD - When: 2 - 3 days - Reason: Recheck today's complaints, Re-evaluation by your physician Discharge Instructions: - Discharge Summary Sheet brianna - Hypotension brianna - Near-Syncope brianna - Syncope brianna - Near-Syncope, [id number] brianna - Syncope, [id number] brianna - Chronic Kidney Disease, Adult, [id number] brianna Forms: - Medication Reconciliation Form brianna - Thank You Letter brianna - Antibiotic Education brianna - Prescription Opioid Use brianna - Patient Portal Instructions brianna - Leadership Thank You Letter brianna Signatures: Dispatcher [employer] Stef Addison MD MD cha Oliver, Kathy, RN RN ko1 Ivis Vazquez RN RN me1
--- NOTE | 2023-11-10 18:29 | ER ---
Nurse's Notes [facility] Name: Jabier King Age: 68 yrs Sex: Male : 1955 Arrival Date: 11/10/2023 Time: 15:56 Bed 16 Private MD: Diagnosis: Syncope Near;Hypotension due to drugs-MULTIPLE BLOOD PRESSURE MEDS;Unspecified kidney failure-CHRONIC Presentation: 11/09 16:05 Chief complaint: Spouse and/or significant other states: he got dizzy and fell, did not ko1 pass out. BP was "low,low,low like 68/55.". Coronavirus screen: At this time, the client does not indicate any symptoms associated with coronavirus-19. Ebola Screen: No symptoms or risks identified at this time. Initial Sepsis Screen: Does the patient meet any 2 criteria? No. Patient's initial sepsis screen is negative. Does the patient have a suspected source of infection? No. Patient's initial sepsis screen is negative. Risk Assessment: Do you want to hurt yourself or someone else? Patient reports no desire to harm self or others. Onset of symptoms is unknown. 16:05 Method Of Arrival: Ambulatory ko1 16:05 Acuity: TARA 3 ko1 Triage Assessment: 16:11 General: Appears in no apparent distress. Behavior is calm, cooperative, appropriate ko1 for age. Pain: Denies pain. Historical: - Allergies: 16:11 Bactrim; ko1 - PMHx: 16:11 CVA; Diabetes - NIDDM; High Cholesterol; Hypertension; ko1 - PSHx: 16:11 None; ko1 - Immunization history:: Adult Immunizations up to date. - Social history:: Smoking status: Patient/guardian denies using tobacco, but has a distant history of tobacco abuse. Screenin:02 [facility] ED Fall Risk Assessment (Adult) History of falling in the last 3 months, me1 including since admission Yes- single mechanical fall (1 pt) Confusion or Disorientation No (0 pts) Intoxicated or Sedated No (0 pts) Impaired Gait No (0 pts) Mobility Assist Device Used No (0 pt) Altered Elimination No (0 pt) Score/Fall Risk Level 0 - 2 = Low Risk Maintained a safe environment, Provided non-skid footwear, Hourly rounding (assess needs \\T\\ fall precautionary measures) done. Abuse screen: Denies threats or abuse. Nutritional screening: No deficits noted. Tuberculosis screening: No symptoms or risk factors identified. Assessment: 17:02 General: Appears comfortable, well groomed, well developed, well nourished, Behavior is me1 calm, cooperative, appropriate for age, Reports he got dizzy and fell, did not pass out. BP was "low,low,low like 68/55.". Pain: Denies pain. Neuro: Level of Consciousness is awake, alert, obeys commands, Oriented to person, place, time, situation, Appropriate for age. Neuro: Reports a syncopal episode. Cardiovascular: Patient's skin is warm and dry. Respiratory: Airway is patent Respiratory effort is even, unlabored, Respiratory pattern is regular, symmetrical. GI: No signs and/or symptoms were reported involving the gastrointestinal system. : No signs and/or symptoms were reported regarding the genitourinary system. EENT: No signs and/or symptoms were reported regarding the EENT system. Derm: Skin is intact, is healthy with good turgor, Skin is pink, warm \\T\\ dry. Musculoskeletal: No signs and/or symptoms reported regarding the musculoskeletal system. Vital Signs: 16:05 BP 95 / 59; Pulse 73; Resp 16; Temp 97.5; Pulse Ox 100% ; ko1 16:45 BP 94 / 65; Pulse 66; Resp 16; Pulse Ox 98% on R/A; me1 17:00 BP 93 / 63; Pulse 64; Resp 16; Pulse Ox 99% on R/A; me1 17:58 BP 115 / 75 Supine; Pulse 72; me1 17:59 BP 115 / 74 Sitting; Pulse 67; me1 18:00 BP 115 / 75 Standing; Pulse 64; me1 18:00 BP 115 / 75; Pulse 64; Resp 17; Pulse Ox 100% on R/A; me1 ED Course: 16:01 Patient arrived in ED. mr 16:02 Stef Bagley MD is Attending Physician. brianna 16:11 Triage completed. ko1 16:11 Arm band placed on right wrist. Patient placed in an exam room, on a stretcher, on ko1 smoke chaser, on pulse oximetry, Patient notified of wait time. 16:19 CT Head Brain wo Cont In Process Unspecified. EDMS 16:23 XRAY Chest (1 view) In Process Unspecified. [facility] 16:43 Ivis Vazquez, RN is Primary Nurse. me1 16:43 EKG done, by ED staff, reviewed by Stef Bagley MD. me1 16:44 Inserted saline lock: 20 gauge in left antecubital area, using aseptic technique. Blood ds4 collected. 16:44 Basic Metabolic Panel Sent. me1 16:44 CBC with Diff Sent. me1 16:44 LFT's Sent. me1 16:44 Magnesium Sent. me1 16:44 NT PRO-BNP Sent. me1 16:45 Client placed on continuous cardiac and pulse oximetry monitoring. NIBP monitoring me1 applied. monitor and storage bin tender on. Pulse ox on. NIBP on. 16:45 PT-INR Sent. me1 16:45 Troponin HS Sent. me1 17:02 Patient has correct armband on for positive identification. Bed in low position. Call me1 light in reach. Side rails up X2. Provided Education on: POC. Verbalized understanding. . 17:02 No provider procedures requiring assistance completed. me1 18:27 Fritz Higgins MD is Referral Physician. brianna 18:27 Ángel Maravilla MD is Referral Physician. brianna 18:58 IV discontinued, intact, bleeding controlled, No redness/swelling at site. Pressure me1 dressing applied. Administered Medications: 16:45 Drug: NS 0.9% IV 1000 ml IV at 1 bolus Per protocol; 1000 mL bolus Route: IV; Rate: 1 me1 bolus; Site: left antecubital; 18:59 Follow up: Response: No adverse reaction; IV Status: Completed infusion; IV Intake: me1 1000ml 18:42 Not Given (per Verbal order from Dr Mccabe.): ns 0.9% 1000 ml IV at 1 bolus Per me1 protocol; 1000 mL bolus Medication: 17:02 VIS not applicable for this client. me1 Intake: 18:59 IV: 1000ml; Total: 1000ml. me1 Outcome: 18:28 Discharge ordered by . brianna 18:58 Discharged to home ambulatory, with significant other, me1 18:58 Condition: stable 18:58 Discharge instructions given to patient, significant other, Instructed on discharge instructions, follow up and referral plans. Demonstrated understanding of instructions, follow-up care, 18:59 Patient left the ED. me1 Signatures: Dispatcher [employer] EDMS Stef Bagley MD MD cha Rivera, Cydney, Reg Reg Alonso Willett ds4 Paula Guy, RN RN ko1 Ivis Vazquez RN RN me1 Corrections: (The following items were deleted from the chart) 17:02 16:05 Chief complaint: Spouse and/or significant other states: he got dizzy and fell, me1 did not pass out. BP was "low,low,low like 68/55." koBrittney
[2023-11-10 20:23] VITALS: BP 115/75; TEMP 97.5; O2SAT 100
--- NOTE | 2023-11-11 11:52 | EKG ---
Test Date: 2023-11-10 Test Time: 15:39:57 Boat Dispatcher: SHERMAN MEASUREMENT RESULTS: Intervals: Rate: 66 CA: 162 QRSD: 66 QT: 430 QTc: 450 Marana: P: 56 CA: 162 QRS: 69 T: 78 INTERPRETIVE STATEMENTS: Normal sinus rhythm Normal ECG Compared to ECG 08/19/2023 15:35:39 No significant changes Electronically Signed On 11-11-23 11:49:17 CDT by Fritz Higgins
== END 2023-11-10 18:59 | disposition home or self-care (01) ==
LOC: ER 15:56
DX: I95.2 Hypotension due to drugs (principal); T46.5X5A Adverse effect of other antihypertensive drugs, initial encounter; E11.22 Type 2 diabetes mellitus with diabetic chronic kidney disease; I12.9 Hypertensive chronic kidney disease with stage 1 through stage 4 chronic kidney disease, or unspecified chronic kidney disease; N18.9 Chronic kidney disease, unspecified; Z88.1 Allergy status to other antibiotic agents
CPT/HCPCS: 36415; 70450; 71045; 80048; 80076; 81001; 83690; 83735; 83880; 84484; 85025; 85610; 87077; 87086; 87088; 87186; 93005; 96360; 96361; 99285